=== PATIENT | female | born 1955 | race Caucasian/White ===

== ENCOUNTER 2020-12-04 06:46 | Outpatient (CLI) | payer MEDICARE, SELFPAY ==
[2020-12-04 07:30] LABS: Basophils Absolute Auto 0.1 K/mm3 (0.0-0.1); Basophils Percent Auto 0.7 % (0.2-1.2); Eosinophils Absolute Auto 0.1 K/mm3 (0-0.3); Eosinophils Percent Auto 1.6 % (0-4.4); Hematocrit 40.3 % (37.0-47.0); Immature Granulocyte Absolute 0.03 K/mm3 (0.00-0.031); Immature Granulocyte Percent A 0.3 % (0-0.5); Lymphocytes Absolute Auto 2.63 K/mm3 (0.9-3.2); Lymphocytes Percent Auto 29.7 % (18.3-44.2); Mean Corpuscular HGB Conc 32.3 g/dl (32-36); Mean Corpuscular Hemoglobin 31.2 pg (26-34); Mean Corpuscular Volume 96.6 fl (80-100); Monocytes Percent Auto 11.3 % (2.6-8.5); Neutrophils Percent Auto 56.4 % (45.5-73.1); Platelet Count Result 359 k/mm3 (150-375); Red Blood Count 4.17 M/mm3 (4.2-5.4); Red Cell Distribution Width 13.1 % (11.5-14.5); White Blood Count 8.9 K/mm3 (4.5-10.0)
[2020-12-04 07:41] LABS: Anion Gap 2 mmol/L (8-16); Blood Urea Nitrogen 15 mg/dL (7-17); Calcium 8.7 mg/dL (8.4-10.2); Carbon Dioxide 35 mmol/L (22-30); Chloride 102 mmol/L (98-107); Cholesterol 186 mg/dL (0-200); Estimated Glomerular Filt Rate > 60; Glucose 99 mg/dL (65-105); HDL Direct 49 mg/dL; Potassium 4.4 mmol/L (3.4-5.0); Sodium 139 mmol/L (137-145); Triglycerides 129 mg/dL (<150)
[2020-12-04 07:53] LABS: LDL Cholesterol Direct 107 mg/dL
[2020-12-04 09:23] LABS: Free T4 Free Thyroxine Reflex 0.94 ng/dL (0.78-2.19)
[2020-12-04 10:27] LABS: Total Triiodothyronine (T3) 1.14 NG/ML (0.97-1.69)
== END 2020-12-04 06:47 | disposition home or self-care (01) ==
PROVIDERS: PCP Nurse Practitioner Family; Visit Provider Nurse Practitioner Family
DX: E03.9 Hypothyroidism, unspecified (principal); I10 Essential (primary) hypertension
CPT/HCPCS: 36415; 80048; 80061; 84439; 84443; 84480; 85025

== ENCOUNTER 2021-01-22 15:37 | Outpatient (CLI) | payer MEDICARE, SELFPAY ==
--- NOTE | ~2021-01-22 | XR_ITS ---
EXAMINATION: XR thoracic spine 3V DATE: 01/22/2021 17:04 INDICATION: Thoracic radiculopathy. TECHNIQUE: 3 views of thoracic spine were obtained. COMPARISON: None. FINDINGS: There is 5 degrees dextrocurvature of thoracic spine. There is kyphosis of thoracic spine. Vertebral body heights are normal. There is decreased disc height at most levels, severe in mid thora cic spine. There are endplate osteophytes at all levels. Epidural electrodes are noted with tips at T 6. Surgical clips in the right upper quadrant are likely from cholecystectomy. IMPRESSION: 1. Severe thoracic spondylosis. 2. Thoracic kyphosis. Reviewed, dictated and finalized at location A.
--- NOTE | ~2021-01-22 | XR_ITS ---
XR lumbar spine min 4V 01/22/2021 17:04 Indication: Radiculopathy. Postlaminectomy syndrome. Procedure: 5 views lumbar spine Comparison: 05/01/2017 Findings: There are surgical changes of fusion at L4-5 with pedicle screws. There is prosthetic disc device without significant change to alignment. There is grade 1 spondylolisthesis at L4-5. There is disc narrowing at all lumbar levels. There are spinal stimulator leads present, superior extent not c ompletely visualized. There are cholecystectomy clips. There are also screws transfixing the lumbosac ral junction. There is disc prosthesis at L5-S1. Impression: 1: No significant interval change. Postoperative changes at L5-S1. 2: Mild-moderate lumbar spondylosis with grade 1 spondylolisthesis at L4-5. Reviewed, dictated and finalized at location D. Impression: 1: No significant interval change. Postoperative changes at L5-S1. 2: Mild-moderate lumbar spondylosis with grade 1 spondylolisthesis at L4-5.
--- NOTE | 2021-01-22 16:17 | ECG_ITS ---
Measurements Intervals [place] Rate: 79 P: 37 NH: 131 QRS: -25 QRSD: 114 T: 13 QT: 385 QTc: 442 Interpretive Statements SINUS RHYTHM LOW QRS VOLTAGE IN PRECORDIAL LEADS RIGHT BUNDLE BRANCH BLOCK BASELINE ARTIFACT- II, III, AVF ABNORMAL ECG Electronically Signed On 01-22-2021 16:28:57 CDT by Cristofer Canales D.O.
[2021-01-22 16:26] LABS: Basophils Percent Auto 0.4 % (0.2-1.2); Eosinophils Absolute Auto 0.1 K/mm3 (0-0.3); Eosinophils Percent Auto 0.9 % (0-4.4); Hemoglobin 13.9 g/dL (12.0-15.0); Immature Granulocyte Absolute 0.02 K/mm3 (0.00-0.031); Immature Granulocyte Percent A 0.2 % (0-0.5); Lymphocytes Absolute Auto 2.07 K/mm3 (0.9-3.2); Lymphocytes Percent Auto 24.5 % (18.3-44.2); Mean Corpuscular HGB Conc 32.3 g/dl (32-36); Mean Corpuscular Hemoglobin 31.4 pg (26-34); Mean Corpuscular Volume 97.1 fl (80-100); Mean Platelet Volume 8.7 fl (7.4-10.4); Monocytes Percent Auto 11.3 % (2.6-8.5); Neutrophils Absolute Auto 5.3 K/mm3 (1.3-6.7); Neutrophils Percent Auto 62.7 % (45.5-73.1); Platelet Count Result 367 k/mm3 (150-375); Red Blood Count 4.43 M/mm3 (4.2-5.4); Red Cell Distribution Width 12.4 % (11.5-14.5); White Blood Count 8.4 K/mm3 (4.5-10.0)
[2021-01-22 16:29] LABS: Add Urine Microscopic? YES; Appearance Urine Clear (Clear); Bilirubin Urine Negative (Negative); Blood Urine Negative (Negative); Color Urine Yellow (Yellow); Glucose Urine UA Negative (Negative); Ketones Urine Negative (Negative); Leukocyte Esterase Ur Negative LEU/UL (NEGATIVE); Mucus Urine Rare /lpf; Nitrate Urine Negative (Negative); Protein Urine Negative (Negative); RBC Urine 0-2 /hpf (0-2); Squamous Epithelial Cell Urine Rare /hpf (Few); Urobilinogen Urine Negative mg/dL (<2.0); WBC Urine 0-3 /hpf (0-3)
[2021-01-22 16:41] LABS: Specific Grav Ur 1.003 (1.001-1.035)
[2021-01-22 16:52] LABS: Erythrocyte Sedimentation Rate 20 mm/hr (0-20)
[2021-01-22 18:25] LABS: Alanine Aminotransferase 26 U/L (4-35); Albumin Level 4.5 g/dL (3.5-5.1); Alkaline Phosphatase 140 U/L (38-126); Anion Gap 5 mmol/L (8-16); Aspartate Amino Transferase 36 U/L (14-36); Bilirubin,Total 0.4 mg/dL (0.2-1.3); Blood Urea Nitrogen 12 mg/dL (7-17); CRP 1.8 mg/dL (<1.0); Calcium 10.1 mg/dL (8.4-10.2); Carbon Dioxide 34 mmol/L (22-30); Chloride 99 mmol/L (98-107); Estimated Glomerular Filt Rate > 60; Glucose 95 mg/dL (65-105); Potassium 4.8 mmol/L (3.4-5.0); Sodium 138 mmol/L (137-145)
== END 2021-01-22 15:38 | disposition home or self-care (01) ==
PROVIDERS: PCP Nurse Practitioner Family; Referring Provider Pain Medicine Pain Medicine; Visit Provider Physician Assistant
DX: Z01.818 Encounter for other preprocedural examination (principal); M96.1 Postlaminectomy syndrome, not elsewhere classified; Z96.89 Presence of other specified functional implants; M47.26 Other spondylosis with radiculopathy, lumbar region; M47.894 Other spondylosis, thoracic region; I45.10 Unspecified right bundle-branch block
CPT/HCPCS: 36415; 72072; 72110; 80053; 81001; 85025; 85652; 86140; 93005

== ENCOUNTER 2021-09-17 07:24 | Outpatient (CLI) | payer MEDICARE, SELFPAY ==
[2021-09-17 08:12] LABS: Basophils Percent Auto 0.5 % (0.2-1.2); Eosinophils Absolute Auto 0.1 K/mm3 (0-0.3); Eosinophils Percent Auto 1.4 % (0-4.4); Hemoglobin 12.5 g/dL (12.0-15.0); Immature Granulocyte Absolute 0.02 K/mm3 (0.00-0.031); Immature Granulocyte Percent A 0.3 % (0-0.5); Lymphocytes Absolute Auto 1.47 K/mm3 (0.9-3.2); Lymphocytes Percent Auto 19.3 % (18.3-44.2); Mean Corpuscular HGB Conc 32.1 g/dl (32-36); Mean Corpuscular Volume 93.5 fl (80-100); Mean Platelet Volume 8.9 fl (7.4-10.4); Monocytes Absolute Auto 0.8 K/mm3 (0.1-0.6); Monocytes Percent Auto 10.7 % (2.6-8.5); Neutrophils Absolute Auto 5.2 K/mm3 (1.3-6.7); Neutrophils Percent Auto 67.8 % (45.5-73.1); Platelet Count Result 322 k/mm3 (150-375); Red Blood Count 4.17 M/mm3 (4.2-5.4); Red Cell Distribution Width 13.2 % (11.5-14.5); White Blood Count 7.6 K/mm3 (4.5-10.0)
[2021-09-17 08:29] LABS: Iron 65 ug/dL (37-170)
[2021-09-17 08:39] LABS: Percent Iron Saturation 19 % (20-50)
[2021-09-17 09:15] LABS: Vitamin B12 > 1000.0 pg/mL (239-931)
== END 2021-09-17 07:25 | disposition home or self-care (01) ==
PROVIDERS: PCP Nurse Practitioner Family; Visit Provider Nurse Practitioner Family
DX: G25.81 Restless legs syndrome (principal); D64.9 Anemia, unspecified
CPT/HCPCS: 36415; 82607; 82728; 83540; 83550; 85025

== ENCOUNTER 2021-09-20 19:10 | Emergency (ER) | payer MEDICARE, SELFPAY ==
[2021-09-20] VITALS (14 sets, daily range): BP systolic 151–172; BP diastolic 73–127; PULSE 104–113; RESP 14–26; TEMP 36.4–36.9; O2SAT 95–100
--- NOTE | ~2021-09-20 | XR_ITS ---
EXAMINATION: XR knee RT 3V EXAM DATE: 09/20/2021 19:56 INDICATION: Fall Today, Pain To [place] Of Knee, Replaced 3 Yrs Ago TECHNIQUE: Three projections of the right knee. Comparison is made to prior examination from 2. FINDINGS: There is right knee arthroplasty hardware in expected position. There are no acute fractu res identified. No joint effusion. IMPRESSION: Intact right knee arthroplasty. Reviewed, dictated and finalized at location G. 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
--- NOTE | ~2021-09-20 | XR_ITS ---
EXAMINATION: XR ankle RT min 3V EXAM DATE: 09/20/2021 19:45 INDICATION: Right ankle fracture dislocation. TECHNIQUE: Frontal, oblique, lateral projections of the right ankle. There is no prior study for co mparison. FINDINGS: There is acute comminuted right fibular distal diaphyseal fracture with about 35 degrees o f lateral angulation. There is another ossification identified adjacent to the fibula at the distal t ibiofibular syndesmosis, could be an avulsion off of the tibia given the syndesmosis disruption. Talus is completely laterally displaced with respect to the tibial plafond, along with the medial mal leolus. Metatarsal bones were imaged and are unremarkable. IMPRESSION: Right fibular distal diaphyseal fracture, mortise disruption with laterally displaced nicole us and medial malleolus. Reviewed, dictated and finalized at location . CTOR OF DONOR RELATIONS IMPRESSION: Right fibular distal diaphyseal fracture, mortise disruption with l aterally displaced talus and medial malleolus.
--- NOTE | ~2021-09-20 | XR_ITS ---
EXAMINATION: XR ankle RT 2V EXAM DATE: 09/20/2021 20:43 INDICATION: Postreduction. TECHNIQUE: Frontal and lateral projections of the right ankle. There is no prior study for comparis on. FINDINGS: There has been interval reduction of previously seen laterally angulated right fibular dis nicole diaphyseal fracture. Talus is now only mildly laterally subluxed with respect to the tibial plafo nd. There is medial malleolar base avulsion fracture, and also deltoid ligament disruption. Syndesmos is disruption. Comminution to the fibular fracture. Splint has been applied. IMPRESSION: Right ankle fracture dislocation with interval reduction. Reviewed, dictated and finalized at location G. 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
--- NOTE | 2021-09-20 19:41 | ED.GENADULT ---
HPI - General Adult General Chief complaint: Fall Stated complaint: FELL DOWN 2 STEPS, RT ANKLE DEFORMITY Time Seen by Provider: 09/20/21 19:11 History of Present Illness HPI narrative: Patient is a 66-year-old female who presents ER with right ankle pain and deformity. Patient was walking down steps in her garage when she suffered inversion twist of her ankle. Sudden onset pain. Did not strike her head or lose consciousness. No numbness or tingling of the foot. Pulses intact. EMS gave patient fentanyl 100 mcg and then 50 mcg. Related Data Home Medications Medication Instructions Recorded Confirmed albuterol sulfate 90 mcg INHALATION PRN PRN 06/16/19 06/16/19 amitriptyline 10 mg PO DAILY 06/16/19 06/16/19 benzonatate 200 mg PO DAILY 06/16/19 06/16/19 bupropion HCl 150 mg PO DAILY 06/16/19 06/16/19 carbidopa-levodopa 1 tablet PO DAILY 06/16/19 06/16/19 duloxetine 60 mg PO DAILY 06/16/19 06/16/19 ergocalciferol (vitamin D2) 50,000 unit PO DAILY 06/16/19 06/16/19 fluticasone propionate 50 mcg INTRANASAL DAILY 06/16/19 06/16/19 hydrocodone-acetaminophen 1 tablet PO DAILY 06/16/19 06/16/19 levothyroxine 150 mcg PO DAILY 06/16/19 06/16/19 montelukast 10 mg PO DAILY 06/16/19 06/16/19 omeprazole 40 mg PO DAILY 06/16/19 06/16/19 potassium chloride [Klor-Con M20] 20 meq PO DAILY 06/16/19 06/16/19 Allergy Relief (loratadine) 10 mg 07/15/19 Allergies Allergy/AdvReac Type Severity Reaction Status Date / Time pregabalin Allergy Intermediate hand/feet/leg Verified 07/15/19 05:21 swelling Review of Systems Review of Systems: All systems reviewed & are unremarkable except as noted in HPI and below Constitutional: Constitutional: Denies chills, Denies fever(s) and Denies weakness Gastrointestinal: Gastrointestinal: Denies nausea and Denies vomiting Musculoskeletal: Musculoskeletal: Reports arthralgias, Reports joint swelling and Denies muscle cramps Neurologic: Denies syncope, Denies headache(s), Denies focal weakness and Denies numbness PMFSH Past Medical History Medical History (Updated 09/20/21 @ 21:47 by Dakota Cancino MD) Allergies Depression GERD with apnea Hepatitis A Hypothyroidism Peripheral neuropathy Restless leg Surgical History Surgical History H/O arthroscopic knee surgery H/O section H/O dilation and curettage History of orthopedic surgery History of right salpingo-oophorectomy History of tonsillectomy History of total bilateral knee replacement Hx of cholecystectomy S/P left rotator cuff repair Family History Family History Other Family history of Parkinson's disease Family history of malignant neoplasm of male breast Family history of osteoarthritis Social History Social History Social History: 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 She designated herself is a full code. 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 She has 2 children. Additional occupation/education comments: [employer] skin care instructor Gender identity (if verbalized by the patient): Female Spiritual care concerns: No Agree to blood products: Yes Exam Narrative: GENERAL: Well-appearing, well-nourished, and in no acute distress. HEAD: Normocephalic, atraumatic. EYES: PERRL and EOMI. ENT: Mucous membranes moist. Normal-appearing posterior oropharynx with midline uvula and nonedematous tonsils. NECK: Supple. CHEST: Clear to auscultation. No respiratory distress. HEART: Tachycardic and regular. Normal peripheral pulses. EXTREMITIES: Right ankle with deformity with the foot lateral to anatomic position. Dorsalis pedis pulses intact. Sensatio
[2021-09-20] MEDS: MORPHINE SULFATE (*CRX) 4 MG/ML INJ IV PUSH ×2 (20:17→23:16)
[2021-09-20] MEDS: PROPOFOL IV EMULSION 200 MG/20 ML VIAL 90 MG IV PUSH (20:35)
[2021-09-20] MEDS: PROPOFOL IV EMULSION 200 MG/20 ML VIAL 100 MG IV PUSH (20:35)
[2021-09-20 22:20] LABS: SARS-CoV-2 RNA PCR Negative
[2021-09-21] VITALS (11 sets, daily range): BP systolic 130–153; BP diastolic 73–85; PULSE 106–112; RESP 16–26; TEMP 37–37.2; O2SAT 94–97
[2021-09-21] MEDS: MORPHINE SULFATE (*CRX) 4 MG/ML INJ (03:10)
== END 2021-09-21 04:15 | disposition short-term general hospital (02) ==
PROVIDERS: Emergency Provider Emergency Medicine; PCP Nurse Practitioner Family
DX: S82.401A Unspecified fracture of shaft of right fibula, initial encounter for closed fracture (principal); F41.9 Anxiety disorder, unspecified; K21.9 Gastro-esophageal reflux disease without esophagitis; E03.9 Hypothyroidism, unspecified; X50.0XXA Overexertion from strenuous movement or load, initial encounter; Z20.822 Contact with and (suspected) exposure to COVID-19
CPT/HCPCS: 27810; 73562; 73600; 73610; 96374; 96376; 99285; C9803; J2270; J2704; U0003; U0005

== ENCOUNTER 2021-11-26 08:11 | Outpatient (CLI) | payer MEDICARE, SELFPAY ==
[2021-11-26 09:00] LABS: Erythrocyte Sedimentation Rate 51 mm/hr (0-20)
[2021-11-26 09:13] LABS: Rheumatoid Factor < 8.6 IU/ML (<12)
[2021-11-26 09:21] LABS: CRP 1.5 mg/dL (<1.0); Uric Acid 4.1 mg/dL (2.5-7.5)
== END 2021-11-26 08:12 | disposition home or self-care (01) ==
PROVIDERS: PCP Nurse Practitioner Family; Visit Provider Nurse Practitioner Family
DX: M25.50 Pain in unspecified joint (principal)
CPT/HCPCS: 36415; 84550; 85652; 86038; 86140; 86430

== ENCOUNTER 2022-03-26 10:23 | Outpatient (CLI) | payer MEDICARE, SELFPAY ==
[2022-03-26 11:15] LABS: Magnesium 2.2 mg/dL (1.6-2.3)
[2022-03-29 01:49] LABS: Alpha-Tocopherol 15.8 mg/L (5.7-19.9); Beta-Gamma Tocopherol <1.0 mg/L (<=4.3)
== END 2022-03-26 10:24 | disposition home or self-care (01) ==
PROVIDERS: PCP Nurse Practitioner Family; Visit Provider Nurse Practitioner
DX: G47.61 Periodic limb movement disorder (principal)
CPT/HCPCS: 36415; 83735; 84446

== ENCOUNTER 2022-04-04 08:11 | Outpatient (CLI) | payer MEDICARE, SELFPAY ==
[2022-04-04 08:36] LABS: Basophils Absolute Auto 0.1 K/mm3 (0.0-0.1); Basophils Percent Auto 0.5 % (0.2-1.2); Eosinophils Absolute Auto 0.2 K/mm3 (0-0.3); Eosinophils Percent Auto 1.7 % (0-4.4); Hematocrit 39.1 % (37.0-47.0); Hemoglobin 12.6 g/dL (12.0-15.0); Immature Granulocyte Absolute 0.04 K/mm3 (0.00-0.031); Immature Granulocyte Percent A 0.4 % (0-0.5); Lymphocytes Absolute Auto 1.54 K/mm3 (0.9-3.2); Lymphocytes Percent Auto 15.5 % (18.3-44.2); Mean Corpuscular HGB Conc 32.2 g/dl (32-36); Mean Corpuscular Hemoglobin 29.6 pg (26-34); Mean Platelet Volume 8.6 fl (7.4-10.4); Monocytes Absolute Auto 0.9 K/mm3 (0.1-0.6); Monocytes Percent Auto 9.3 % (2.6-8.5); Neutrophils Absolute Auto 7.2 K/mm3 (1.3-6.7); Neutrophils Percent Auto 72.6 % (45.5-73.1); Nucleated Red Blood Cells Absolute Auto 0.1 K/mm3 (0.0-0.012); Nucleated Red Blood Cells Perc 0.5 % (0.0-0.2); Platelet Count Result 374 k/mm3 (150-375); Red Blood Count 4.25 M/mm3 (4.2-5.4); Red Cell Distribution Width 13.5 % (11.5-14.5); White Blood Count 9.9 K/mm3 (4.5-10.0)
[2022-04-04 09:15] LABS: Iron 64 ug/dL (37-170)
[2022-04-04 09:24] LABS: Percent Iron Saturation 19 % (20-50)
== END 2022-04-04 08:12 | disposition home or self-care (01) ==
LOC: ANHLAB 08:17
PROVIDERS: PCP Nurse Practitioner Family; Visit Provider Nurse Practitioner Family
DX: D50.9 Iron deficiency anemia, unspecified (principal)
CPT/HCPCS: 36415; 82728; 83540; 83550; 85025

== ENCOUNTER 2022-08-16 11:37 | Outpatient (CLI) | payer MEDICARE, SELFPAY ==
--- NOTE | ~2022-08-16 | XR_ITS ---
EXAMINATION: XR chest 2V DATE: 08/16/2022 12:07 INDICATION: Gastroesophageal reflux. Preop. TECHNIQUE: Frontal and lateral views of the chest were obtained. COMPARISON: Chest 2 views 11/27/16 FINDINGS: There is no pneumonia, pleural effusion, or pneumothorax. Cardiomegaly is noted. Epidural e lectrodes are noted. Surgical clips in the right upper quadrant are likely from cholecystectomy. Ther e are changes of anterior and posterior fusion procedures in lumbar spine. IMPRESSION: 1. Cardiomegaly. Reviewed, dictated and finalized at location A. [employer]ARY [employer] STATE IMPRESSION: 1. Cardiomegaly.
[2022-08-16 12:08] LABS: Basophils Percent Auto 0.5 % (0.2-1.2); Eosinophils Absolute Auto 0.1 K/mm3 (0-0.3); Eosinophils Percent Auto 0.8 % (0-4.4); Hematocrit 41.9 % (37.0-47.0); Hemoglobin 13.6 g/dL (12.0-15.0); Immature Granulocyte Absolute 0.02 K/mm3 (0.00-0.031); Immature Granulocyte Percent A 0.2 % (0-0.5); Lymphocytes Absolute Auto 1.78 K/mm3 (0.9-3.2); Lymphocytes Percent Auto 21.1 % (18.3-44.2); Mean Corpuscular HGB Conc 32.5 g/dl (32-36); Mean Corpuscular Hemoglobin 29.8 pg (26-34); Mean Corpuscular Volume 91.9 fl (80-100); Mean Platelet Volume 9.3 fl (7.4-10.4); Monocytes Absolute Auto 0.9 K/mm3 (0.1-0.6); Monocytes Percent Auto 10.8 % (2.6-8.5); Neutrophils Absolute Auto 5.6 K/mm3 (1.3-6.7); Neutrophils Percent Auto 66.6 % (45.5-73.1); Platelet Count Result 357 k/mm3 (150-375); Red Blood Count 4.56 M/mm3 (4.2-5.4); Red Cell Distribution Width 12.7 % (11.5-14.5); White Blood Count 8.4 K/mm3 (4.5-10.0)
[2022-08-16 12:21] LABS: Anion Gap 3 mmol/L (8-16); Blood Urea Nitrogen 16 mg/dL (7-17); Calcium 9.1 mg/dL (8.4-10.2); Carbon Dioxide 35 mmol/L (22-30); Chloride 99 mmol/L (98-107); Estimated Glomerular Filt Rate > 60; Glucose 107 mg/dL (65-110); Potassium 4.1 mmol/L (3.4-5.0); Sodium 137 mmol/L (137-145)
[2022-08-16 12:53] LABS: Thyroid Stimulating Hormone Reflex < 0.015 uIU/mL (0.465-4.68)
[2022-08-16 21:40] LABS: Free T4 Free Thyroxine Reflex 2.03 ng/dL (0.78-2.19)
[2022-08-16 22:26] LABS: Total Triiodothyronine (T3) 1.38 NG/ML (0.97-1.69)
== END 2022-08-16 11:38 | disposition home or self-care (01) ==
LOC: ANHLAB 11:41
PROVIDERS: PCP Nurse Practitioner Family; Visit Provider Nurse Practitioner Family
DX: Z01.818 Encounter for other preprocedural examination (principal); E03.9 Hypothyroidism, unspecified; I51.7 Cardiomegaly
CPT/HCPCS: 36415; 71046; 80048; 84439; 84443; 84480; 85025

== ENCOUNTER 2022-11-16 08:51 | Inpatient (IN) | payer MEDICARE, SELFPAY ==
[2022-11-16] VITALS (25 sets, daily range): BP systolic 115–149; BP diastolic 61–85; PULSE 63–99; RESP 13–28; TEMP 36.8–36.9; O2SAT 93–100; BMI 31.9
--- NOTE | ~2022-11-16 | CT_ITS ---
EXAMINATION: CT brain wo con INDICATION: Left-sided facial numbness COMPARISON: 07/15/2019 TECHNIQUE: Standard unenhanced head CT. The dose-length product (DLP) was 605.33 mGy-cm. The mA was a djusted according to patient size. Iterative reconstruction technique was employed. FINDINGS: There is no acute intraparenchymal hemorrhage. No evidence of mass lesion. No evidence of a cute infarction. There is mild periventricular and subcortical hypodensity probably related to small vessel ischemic disease. There is mild prominence of the sulci and ventricles related to cerebral atr ophy. Intracranial calcified cerebral atherosclerosis is noted. There are no extra-axial collections. There is no mass effect or midline shift. The orbits and soft tissues are unremarkable. The visualiz ed sinuses and mastoid air cells are well aerated. IMPRESSION: 1. No acute intracranial abnormality. 2. Age related findings. Reviewed, dictated and finalized at location A.
--- NOTE | 2022-11-16 09:21 | ED.NEUROSD ---
HPI - Neuro Symptoms/Deficit General Chief Complaint: Neuro Symptoms/Deficit <Evie Mann PA-C - Last Filed: 11/16/22 13:57> Stated Complaint: Muscles spasm to left face and throat <Evie Mann PA-C - Last Filed: 11/16/22 13:57> Time Seen by Provider: 11/16/22 08:55 <Evie Mann PA-C - Last Filed: 11/16/22 13:57> History of Present Illness HPI Narrative: Patient is a 67-year-old female here for evaluation of twitching and involuntary movements to the left side of her face for the past 3 days. Patient states that at random she will experience spasming of the left side of the face and occasionally will say words that do not make sense with the spasming. She has had this before in 2019, underwent neurology consultation and it was thought to be related to tardive Dyskinesia given improvement with Benadryl and Cogentin. She was on topiramate at that time which was stopped. Patient was doing well until about 3 days ago when her symptoms returned. She has had no new medicines; she does take sinemet and pramipexole for restless leg. She was seen at [facility] emergency department when her symptoms returned, it improved after she was given Ativan and she was discharged home. No neuroimaging was performed. Patient states her symptoms today are very similar to the episode in 2019. No weakness, visual changes, slurred speech. <Evie Mann PA-C - Last Filed: 11/16/22 13:57> Related Data Home Medications: Home Medications Medication Instructions Recorded Confirmed albuterol sulfate 90 mcg/actuation 90 mcg inhalation PRN PRN 06/16/19 06/16/19 aerosol inhaler Bronchospasm amitriptyline 10 mg tablet 10 mg PO DAILY 06/16/19 06/16/19 benzonatate 200 mg capsule 200 mg PO DAILY 06/16/19 06/16/19 bupropion HCl 150 mg 24 hr tablet, 150 mg PO DAILY 06/16/19 06/16/19 extended release carbidopa 25 mg-levodopa 100 mg 1 tablet PO DAILY 06/16/19 06/16/19 tablet duloxetine 60 mg capsule,delayed 60 mg PO DAILY 06/16/19 06/16/19 release ergocalciferol (vitamin D2) 1,250 50,000 unit PO DAILY 06/16/19 06/16/19 mcg (50,000 unit) capsule fluticasone propionate 50 50 mcg intranasal DAILY 06/16/19 06/16/19 mcg/actuation nasal spray,suspension hydrocodone 7.5 mg-acetaminophen 1 tablet PO DAILY 06/16/19 06/16/19 325 mg tablet levothyroxine 150 mcg tablet 150 mcg PO DAILY 06/16/19 06/16/19 montelukast 10 mg tablet 10 mg PO DAILY 06/16/19 06/16/19 omeprazole 40 mg capsule,delayed 40 mg PO DAILY 06/16/19 06/16/19 release potassium chloride 20 mEq 20 meq PO DAILY 06/16/19 06/16/19 tablet,extended release(part/cryst) (Klor-Con M) Allergy Relief (loratadine) 10 mg 07/15/19 <Evie Mann PA-C - Last Filed: 11/16/22 13:57> Allergies/Adverse Reactions: Allergies Allergy/AdvReac Type Severity Reaction Status Date / Time pregabalin Allergy Intermediate hand/feet/leg Verified 11/16/22 09:14 swelling <Evie Mann PA-C - Last Filed: 11/16/22 13:57> Review of Systems Review of Systems: Gen.: Denies fevers or chills Eyes: Denies eye pain or visual change ENT: Denies congestion Respiratory: Denies shortness of breath or cough CV: Denies chest pain or palpitations GI: Denies abdominal pain nausea, emesis or diarrhea denies burning, urgency, frequency or hematuria Musculoskeletal: Denies back pain or muscle pain Neuro: Reports twitching Skin: Denies rash Except as documented, all other systems reviewed and negative <Evie Mann PA-C - Last Filed: 11/16/22 13:57> [facility] Past Medical History Medical History: Medical History (Updated 11/16/22 @ 12:53 by Evie Mann PA-C) Allergies Depression GERD with apnea Hepatitis A Hypothyroidism Peripheral neuropathy Restless leg <Evie Mann PA-C - Last Filed: 11/16/22 13:57> Surgical History Surgical History: Surgical History (Updated
[2022-11-16] MEDS: diphenhydrAMINE HCl CAP 25 MG CAPSULE PO (09:27)
--- NOTE | 2022-11-16 10:12 | PC.NURSE ---
Patient off unit to CT>
[2022-11-16 10:24] LABS: Alanine Aminotransferase 9 U/L (6-35); Albumin Level 4.2 g/dL (3.5-5.1); Alkaline Phosphatase 159 U/L (38-126); Anion Gap 4 mmol/L (8-16); Aspartate Amino Transferase 29 U/L (14-36); Bilirubin,Total 0.4 mg/dL (0.2-1.3); Blood Urea Nitrogen 13 mg/dL (7-17); Calcium 9.1 mg/dL (8.4-10.2); Carbon Dioxide 32 mmol/L (22-30); Chloride 102 mmol/L (98-107); Estimated Glomerular Filt Rate > 60; Glucose 102 mg/dL (65-110); Phosphorus 4.2 mg/dL (2.5-4.5); Potassium 4.1 mmol/L (3.4-5.0); Sodium 138 mmol/L (137-145)
[2022-11-16 10:54] LABS: Basophils Absolute Auto 0.1 K/mm3 (0.0-0.1); Basophils Percent Auto 0.6 % (0.2-1.2); Eosinophils Absolute Auto 0.1 K/mm3 (0-0.3); Eosinophils Percent Auto 1.6 % (0-4.4); Hematocrit 39.3 % (37.0-47.0); Hemoglobin 12.9 g/dL (12.0-15.0); Immature Granulocyte Absolute 0.04 K/mm3 (0.00-0.031); Immature Granulocyte Percent A 0.5 % (0-0.5); Lymphocytes Absolute Auto 1.56 K/mm3 (0.9-3.2); Lymphocytes Percent Auto 19.3 % (18.3-44.2); Mean Corpuscular HGB Conc 32.8 g/dl (32-36); Mean Corpuscular Hemoglobin 31.2 pg (26-34); Mean Corpuscular Volume 95.2 fl (80-100); Mean Platelet Volume 9.3 fl (7.4-10.4); Monocytes Absolute Auto 0.8 K/mm3 (0.1-0.6); Monocytes Percent Auto 9.7 % (2.6-8.5); Neutrophils Absolute Auto 5.5 K/mm3 (1.3-6.7); Neutrophils Percent Auto 68.3 % (45.5-73.1); Platelet Count Result 345 k/mm3 (150-375); Red Blood Count 4.13 M/mm3 (4.2-5.4); Red Cell Distribution Width 12.9 % (11.5-14.5); White Blood Count 8.1 K/mm3 (4.5-10.0)
[2022-11-16] MEDS: LORazepam (*CRX) 1 MG TABLET PO (11:34)
[2022-11-16] MEDS: BENZTROPINE MESYLATE 1 MG TABLET PO (12:32)
--- NOTE | 2022-11-16 13:37 | PM.IMHP ---
H&P: HPI History of Present Illness Date/Time: 11/16/22 13:37 Chief Complaint: Neuro symptoms Narrative: This is a 67-year-old female patient who came to be evaluated for twitching involuntary movement of the left side of her face for the last 3 days. The patient stated that she has experiences in the past and will occasionally say some words that do not make sense with the spasming. She was treated for this back in 2019 after seeing in neurological consultation. It was thought it was related to tardive dyskinesia. The symptoms resolved with Benadryl and Cogentin. She had been on Topamax at some point but that is now stopped. She has not been taking any new medications. The patient is still on Sinemet and pramipexole for restless leg syndrome. The patient was recently seen at [facility] in [place] and was discharged to home. Patient has no focal weakness or slurred words or any visual changes. Head CT was read as no acute intracranial abnormality. Age-related findings. Neurology has been consulted. The patient was given Benadryl Ativan and Cogentin. When I assessed her the patient was just very restless. No further facial spasm were noted. The patient became very restless after she was given the Ativan. The patient is being admitted to observation status on the date of service of 11/16/2022. Review of Systems Review of Systems: All systems reviewed & are unremarkable except as noted in HPI and below Constitutional: Constitutional: Reports as per HPI and Reports no additional constitutional complaints Eyes: Eyes: Reports as per HPI and Reports no additional eye complaints ENT: Reports system reviewed and no additional complaints, except as documented and Reports Normal hearing present Cardiovascular: Cardiovascular: Reports no additional cardiovascular complaints Respiratory: Respiratory: Reports no additional respiratory complaints and Reports no additional respiratory complaints Gastrointestinal: Gastrointestinal: Reports as per HPI and Reports no additional gastrointestinal complaints Musculoskeletal: Musculoskeletal: Reports no additional musculoskeletal complaints Integumentary/Breasts: Skin/Breast: Reports system reviewed and no additional complaints, except as docu and Reports as per HPI Neurologic: Reports system reviewed and no additional complaints, except as documented, Reports as per HPI and Reports Normal hearing present Psychiatric: Psychiatric: Reports no additional psychiatric complaints and Reports as per HPI Endocrine: Endocrine: Reports no additional endocrine complaints Hematologic/Lymphatic: Hematologic/Lymphatic: Reports no additional hematologic/lymphatic complaints Allergic/Immunologic: Allergic/Immunologic: Reports no additional allergic/immunologic complaints [facility] Past Medical History Medical History Allergies Depression GERD with apnea Hepatitis A Hypothyroidism Peripheral neuropathy Restless leg Surgical History Surgical History (Updated 11/16/22 @ 16:01 by Natalie Shepherd NP) H/O arthroscopic knee surgery H/O section H/O colonoscopy with polypectomy H/O dilation and curettage H/O lumpectomy History of orthopedic surgery History of right salpingo-oophorectomy History of tonsillectomy History of total bilateral knee replacement Hx of cholecystectomy S/P left rotator cuff repair Status post ORIF of fracture of ankle times 2 Family History Family History Other Family history of malignant neoplasm of male breast Family history of osteoarthritis Social History Social History Social History: 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 She designated herself is a full code. Smoking status: Never smoker Alcohol intake: never Substance use: never Substance use type:
--- NOTE | 2022-11-16 13:39 | ADMGEN ---
This patient, Heather Shukla, was admitted to 2 Medical Room 240-. Patient/family oriented to hospital policies and general routines including ID bracelet, bed and alarms, visiting hours, pain management, procedures, bathroom and other care routines, personal items, smoking policy, room service/diet, and visiting hours. Information on how to activate the Rapid Response Team has been discussed. Patient/Family are encouraged to report perceived risks to care and to ask questions if they do not understand what they are told or what they should do.
[2022-11-16] MEDS: diphenhydrAMINE HCl INJ 50 MG/ML VIAL 25 MG IV PUSH ×2 (16:23→22:16)
[2022-11-16] MEDS: CARBIDOPA/LEVODOPA 25/100 MG TABLET 1 TABLET PO (18:21)
[2022-11-16] MEDS: CYCLOBENZAPRINE HCL 5 MG TABLET PO (18:21)
[2022-11-16] MEDS: PANTOPRAZOLE 40 MG TABLET PO (20:45)
[2022-11-16] MEDS: rOPINIRole HCL 0.5 MG TABLET PO (20:45)
[2022-11-16] MEDS: HYDROcodone/acetaminophen (*CRX) 7.5-325 MG TABLET 1 TAB PO (22:15)
[2022-11-17 05:22] VITALS: BP 112/88; PULSE 62; RESP 18; TEMP 36.4; O2SAT 100
[2022-11-17 05:48] LABS: Basophils Absolute Auto 0.1 K/mm3 (0.0-0.1); Basophils Percent Auto 0.6 % (0.2-1.2); Eosinophils Absolute Auto 0.2 K/mm3 (0-0.3); Hematocrit 36.3 % (37.0-47.0); Hemoglobin 12.1 g/dL (12.0-15.0); Immature Granulocyte Absolute 0.03 K/mm3 (0.00-0.031); Immature Granulocyte Percent A 0.3 % (0-0.5); Lymphocytes Absolute Auto 2.29 K/mm3 (0.9-3.2); Lymphocytes Percent Auto 26.5 % (18.3-44.2); Mean Corpuscular HGB Conc 33.3 g/dl (32-36); Mean Corpuscular Hemoglobin 31.5 pg (26-34); Mean Corpuscular Volume 94.5 fl (80-100); Mean Platelet Volume 9.2 fl (7.4-10.4); Monocytes Absolute Auto 1.1 K/mm3 (0.1-0.6); Monocytes Percent Auto 12.7 % (2.6-8.5); Neutrophils Percent Auto 57.9 % (45.5-73.1); Platelet Count Result 297 k/mm3 (150-375); Red Blood Count 3.84 M/mm3 (4.2-5.4); Red Cell Distribution Width 12.8 % (11.5-14.5); White Blood Count 8.6 K/mm3 (4.5-10.0)
[2022-11-17 06:02] LABS: Alanine Aminotransferase 14 U/L (6-35); Albumin Level 3.8 g/dL (3.5-5.1); Alkaline Phosphatase 150 U/L (38-126); Anion Gap 3 mmol/L (8-16); Aspartate Amino Transferase 25 U/L (14-36); Bilirubin,Total 0.6 mg/dL (0.2-1.3); Blood Urea Nitrogen 17 mg/dL (7-17); Calcium 8.9 mg/dL (8.4-10.2); Carbon Dioxide 34 mmol/L (22-30); Chloride 100 mmol/L (98-107); Estimated Glomerular Filt Rate > 60; Glucose 95 mg/dL (65-110); Potassium 3.9 mmol/L (3.4-5.0); Sodium 137 mmol/L (137-145)
[2022-11-17] MEDS: LEVOTHYROXINE SODIUM 150 MCG TABLET PO (06:27)
[2022-11-17] MEDS: CYCLOBENZAPRINE HCL 5 MG TABLET PO ×2 (06:27→14:41)
[2022-11-17] MEDS: CARBIDOPA/LEVODOPA 25/100 MG TABLET 1 TABLET PO ×3 (06:42→22:11)
[2022-11-17 07:00] LABS: Thyroid Stimulating Hormone Reflex 0.167 uIU/mL (0.465-4.68)
[2022-11-17] MEDS: PANTOPRAZOLE 40 MG TABLET PO ×2 (08:09→20:15)
[2022-11-17] MEDS: FERROUS SULFATE 324 MG TABLET PO (08:09)
[2022-11-17] MEDS: buPROPion HCL XL (24 HR) 150 MG TABCR PO (08:09)
[2022-11-17] MEDS: POTASSIUM CHLORIDE 20 MEQ TABLET.ER PO (08:09)
[2022-11-17] MEDS: MONTELUKAST SODIUM 10 MG TABLET PO (08:09)
[2022-11-17] MEDS: DULoxetine HCL 60 MG CAPSULE.DR PO (08:09)
[2022-11-17 11:15] LABS: Free T4 Free Thyroxine Reflex 1.34 ng/dL (0.78-2.19)
--- NOTE | 2022-11-17 11:38 | WPDNEURCNPN ---
Assessment and Plan Assessment and plan (1) Facial spasm: Code(s): G51.39 - Clonic hemifacial spasm, unspecified Status: Acute (2) Restless leg: Code(s): G25.81 - Restless legs syndrome Status: Chronic Plan Heather Shukla is a 67 year old female with a history of restless leg syndrome and hypothyroidism presenting due to involuntary facial twitching associated with speech change. Based on description of movements, seizures seem less likely. Suspect hemifacial spasms, which would ultimately need to be treated with Botox. Could also be medication related dyskinesias as patient is on both Sinemet and dopamine agonist for RLS presently. - MRI brain/MRA brain to evaluate for lesion/neurovascular compression - Routine EEG - If work-up is negative, can consider starting Tegretol for hemifacial spasms in the interim - Will need outpatient evaluation in Movement disorder clinic for potential Botox Consult date: 11/17/22 Reason for consult: Facial twitching HPI: Heather Shukla is a 67 year old female with a history of restless leg syndrome and hypothyroidism presenting due to involuntary facial twitching. Patient presented to [place] ED yesterday due to a three day history of left sided facial twitching. She has had similar episodes in the past associated with speech difficulty. These episodes started about 4 year sago. She was seen at [facility] at that time and diagnosed with Tardive dyskinesia. She was treated with Benadryl and Cogentin. There is no history of antipsychotic use in patient's medication list. She currently takes Sinemet 25-100mg TID and Ropinirole 1mg qhs for restless leg syndrome. In the ED, patient was given Ativan, Benadryl and Cogentin. By the time she was admitted, her facial twitching had stopped. She had a CT head which was unremarkable. Due to concerns for dyskinesias, her Ropinirole was cut in half to 0.5mg qhs. Patient has not had any more twitching since admission. She denies any alteration in mental status during the episodes and is completely awake and alert. She denies any twitching of her extremities with the facial twitching, but does feel restless in her body throughout. Her PCP is managing her restless leg symptoms. Review of Systems Constitutional: Constitutional: Reports no additional constitutional complaints Eyes: Eyes: Reports no additional eye complaints ENT: Reports system reviewed and no additional complaints, except as documented Cardiovascular: Cardiovascular: Reports no additional cardiovascular complaints Respiratory: Respiratory: Reports no additional respiratory complaints Gastrointestinal: Gastrointestinal: Reports no additional gastrointestinal complaints Genitourinary: Genitourinary: Reports no additional female genitourinary complaints Musculoskeletal: Musculoskeletal: Reports no additional musculoskeletal complaints Integumentary/Breasts: Skin/Breast: Reports system reviewed and no additional complaints, except as docu Neurologic: Reports as per HPI Psychiatric: Psychiatric: Reports anxiety PMFSH Past Medical History Medical History Allergies Depression GERD with apnea Hepatitis A Hypothyroidism Peripheral neuropathy Restless leg Surgical History Surgical History H/O arthroscopic knee surgery H/O section H/O colonoscopy with polypectomy H/O dilation and curettage H/O lumpectomy History of orthopedic surgery History of right salpingo-oophorectomy History of tonsillectomy History of total bilateral knee replacement Hx of cholecystectomy S/P left rotator cuff repair Status post ORIF of fracture of ankle times 2 Family History Family History Mother Parkinson disease Family history of osteoarthritis Breast cancer Other Muscular dystrophy Grandparent Colon cancer Fathe
--- NOTE | 2022-11-17 12:14 | PM.IMPN ---
Progress Note: A&P Assessment and Plan (1) Acute chorea: Code(s): G25.5 - Other chorea Status: Acute Assessment and Plan: Twitching involuntary movement of the left side of her face for the last 3 days Neurology has been consulted The patient was started on Cogentin and Benadryl. Ropinirole can cause some dyskinesias; ropinirole dose cut her in half. MRI and MRA of brain and brainstem ordered EEG has been ordered Patient has no neurological deficits at this time. She has no further facial twitching at this time and her speech is clear. Duloxetine can cause seizures as well. (2) Hypothyroidism: Code(s): E03.9 - Hypothyroidism, unspecified Status: Chronic Assessment and Plan: Check thyroid level, TSH 0.167, normal T4 Continue levothyroxine (3) Peripheral neuropathy: Code(s): G62.9 - Polyneuropathy, unspecified Status: Chronic Assessment and Plan: Continue with duloxetine Duloxetine can cause some seizures EEG has been ordered. (4) Depression: Code(s): F32.9 - Major depressive disorder, single episode, unspecified Status: Chronic Assessment and Plan: Continue with duloxetine (5) Restless leg: Code(s): G25.81 - Restless legs syndrome Status: Chronic Assessment and Plan: Her ropinirole has been decreased by half as it can cause some dyskinesias. Subjective Date/time seen: 11/17/22 12:14 Interval history: Patient is doing well and her muscle spasms have resolved. Patient denies headache, dizziness, muscle cramping, chest pain and shortness of breath. Review of Systems Review of Systems: All systems reviewed & are unremarkable except as noted in HPI and below Exam Narrative: GENERAL: Comfortable, no acute distress HENMT: moist mucous membranes EYES: EOM intact b/l RESPIRATORY: clear to auscultation CARDIO: RRR GI: soft, nontender, bowel sounds present SKIN: no rashes EXTREMITIES: no edema, redness or tenderness Objective Data Vital Signs Vital Signs: Vital Signs - 24 hr 11/16/22 12:15 11/16/22 12:30 11/16/22 12:45 Temperature Pulse Rate 74 83 81 Respiratory Rate 14 24 H 15 Blood Pressure Pulse Oximetry 96 97 94 Oxygen Delivery 11/16/22 14:23 11/16/22 13:40 11/16/22 20:00 Temperature 98.2 F Pulse Rate 89 Respiratory Rate 20 Blood Pressure 121/85 Pulse Oximetry 97 97 Oxygen Delivery Room Air Room Air 11/16/22 20:22 11/17/22 05:22 11/17/22 08:10 Temperature 98.3 F 97.6 F Pulse Rate 99 62 Respiratory Rate 20 18 Blood Pressure 129/76 112/88 Pulse Oximetry 95 100 Oxygen Delivery Room Air Intake/Output Intake/Output: Intake & Output 11/14/22 11/15/22 11/16/22 11/17/22 23:59 23:59 23:59 23:59 Intake Total 870 490 Output Total 400 500 Balance 470 -10 Meds/Results Medications: Active Medications Generic Name Dose Route Start Last Admin Trade Name Freq PRN Reason Stop Dose Admin Acetaminophen 650 mg 11/16/22 12:49 Acetaminophen 325 Mg Tablet PO Q4H PRN Mild Pain (1-3) or Fever Hydrocodone Bitart/Acetaminophen 1 tab 11/16/22 15:59 11/16/22 22:15 Hydrocodone/Acetaminophen (*Crx) 7.5-325 Mg Tablet PO 1 tab Q6H PRN Administration Pain 4-6 Albuterol 2 puff 11/16/22 15:59 Albuterol Sulfate (*Sp) Aerosol 1 Puff INHALATION Q4H PRN Bronchospasm Bupropion HCl 150 mg 11/17/22 09:00 11/17/22 08:09 Bupropion Hcl Xl (24 Hr) 150 Mg Tabcr PO 150 mg DAILY GERARDO Administration Carbidopa/Levodopa 1 tablet 11/17/22 07:00 11/17/22 06:42 Carbidopa/Levodopa 25/100 Mg Tablet PO 1 tablet 0700,1500,2300 GERARDO Administration Cyclobenzaprine HCl 5 mg 11/16/22 17:32 11/17/22 06:27 Cyclobenzaprine Hcl 5 Mg Tablet PO 5 mg Q8H PRN Administration Muscle Spasm Diphenhydramine HCl 25 mg 11/16/22 15:28 11/16/22 22:16 Diphenhydramine
[2022-11-17 14:54] VITALS: BP 119/59; PULSE 79; RESP 16; TEMP 36.5; O2SAT 98
[2022-11-17 14:55] VITALS: BP 119/59; PULSE 79; RESP 16; TEMP 36.5; O2SAT 98
[2022-11-17 20:00] VITALS: PULSE 79; RESP 16; O2SAT 98
[2022-11-17] MEDS: rOPINIRole HCL 0.5 MG TABLET PO (20:15)
[2022-11-17 20:29] VITALS: BP 121/64; PULSE 81; RESP 20; TEMP 36.6; O2SAT 100
[2022-11-17 22:27] LABS: Total Triiodothyronine (T3) 1.15 NG/ML (0.97-1.69)
[2022-11-18 05:30] VITALS: BP 124/59; PULSE 64; RESP 20; TEMP 36.5; O2SAT 100
[2022-11-18 05:46] LABS: Basophils Percent Auto 0.5 % (0.2-1.2); Eosinophils Absolute Auto 0.2 K/mm3 (0-0.3); Eosinophils Percent Auto 1.9 % (0-4.4); Hematocrit 35.3 % (37.0-47.0); Hemoglobin 11.5 g/dL (12.0-15.0); Immature Granulocyte Absolute 0.03 K/mm3 (0.00-0.031); Immature Granulocyte Percent A 0.3 % (0-0.5); Lymphocytes Absolute Auto 1.88 K/mm3 (0.9-3.2); Lymphocytes Percent Auto 21.8 % (18.3-44.2); Mean Corpuscular HGB Conc 32.6 g/dl (32-36); Mean Corpuscular Volume 95.1 fl (80-100); Mean Platelet Volume 9.4 fl (7.4-10.4); Neutrophils Absolute Auto 5.6 K/mm3 (1.3-6.7); Neutrophils Percent Auto 64.5 % (45.5-73.1); Platelet Count Result 289 k/mm3 (150-375); Red Blood Count 3.71 M/mm3 (4.2-5.4); Red Cell Distribution Width 12.7 % (11.5-14.5); White Blood Count 8.6 K/mm3 (4.5-10.0)
[2022-11-18 05:55] LABS: Alanine Aminotransferase 7 U/L (6-35); Albumin Level 3.7 g/dL (3.5-5.1); Alkaline Phosphatase 138 U/L (38-126); Anion Gap 3 mmol/L (8-16); Aspartate Amino Transferase 22 U/L (14-36); Bilirubin,Total 0.4 mg/dL (0.2-1.3); Blood Urea Nitrogen 19 mg/dL (7-17); Calcium 8.7 mg/dL (8.4-10.2); Carbon Dioxide 33 mmol/L (22-30); Chloride 101 mmol/L (98-107); Estimated Glomerular Filt Rate > 60; Glucose 109 mg/dL (65-110); Potassium 3.7 mmol/L (3.4-5.0); Sodium 137 mmol/L (137-145)
[2022-11-18] MEDS: CARBIDOPA/LEVODOPA 25/100 MG TABLET 1 TABLET PO ×2 (06:27→14:36)
[2022-11-18] MEDS: LEVOTHYROXINE SODIUM 150 MCG TABLET PO (06:27)
[2022-11-18] MEDS: ERGOCALCIFEROL 50,000 UNITS CAPSULE 50000 UNITS PO (08:11)
[2022-11-18] MEDS: POTASSIUM CHLORIDE 20 MEQ TABLET.ER PO (08:11)
[2022-11-18] MEDS: DULoxetine HCL 60 MG CAPSULE.DR PO (08:11)
[2022-11-18] MEDS: FERROUS SULFATE 324 MG TABLET PO (08:12)
[2022-11-18] MEDS: PANTOPRAZOLE 40 MG TABLET PO (08:12)
[2022-11-18] MEDS: buPROPion HCL XL (24 HR) 150 MG TABCR PO (08:12)
[2022-11-18] MEDS: MONTELUKAST SODIUM 10 MG TABLET PO (08:12)
--- NOTE | 2022-11-18 11:18 | WPDNEUROPN ---
Subjective Date/time seen: 11/18/22 11:18 Interval history: 67 years old right-handed female has been admitted to [facility] and was initially seen by Dr. Foreman for the complaints of facial spasms in addition to restless leg syndrome patient does have underlying hypothyroidism patient initially presented to the ER for the involuntary facial twitching patient has been taking the Sinemet and dopamine agonist for restless leg syndrome MRI of the brain and MRA was ordered to rule out the possible neurovascular compression in addition to obtaining the routine EEG her routine lab is normal and head CT scan is negative at present she is taking multiple medications which include bupropion 150 mg daily, carbidopa levodopa 25/100 3 times a day, duloxetine 60 mg daily, and ropinirole 1 mg daily MRI of the brain has been ordered in addition routine EEG and Dr. Foreman was thinking to briefer her to the [facility]. On today's visit she feels completely better will wait for the MRI report and then decide accordingly Objective Data Vital Signs Vital Signs: Vital Signs - 24 hr 11/17/22 14:54 11/17/22 14:55 11/17/22 20:00 Temperature 36.5 C 36.5 C Pulse Rate 79 79 79 Respiratory Rate 16 16 16 Blood Pressure 119/59 L 119/59 L Pulse Oximetry 98 98 98 Oxygen Delivery Room Air 11/17/22 20:29 11/18/22 05:30 Temperature 36.6 C 36.5 C Pulse Rate 81 64 Respiratory Rate 20 20 Blood Pressure 121/64 124/59 L Pulse Oximetry 100 100 Oxygen Delivery Intake/Output Intake/Output: Intake & Output 11/15/22 11/16/22 11/17/22 11/18/22 23:59 23:59 23:59 23:59 Intake Total 870 1670 365 Output Total 020 942 1951 Balance 470 983 -635 Meds/Results Medications: Active Medications Generic Name Dose Route Start Last Admin Trade Name Freq PRN Reason Stop Dose Admin Acetaminophen 650 mg 11/16/22 12:49 Acetaminophen 325 Mg Tablet PO Q4H PRN Mild Pain (1-3) or Fever Hydrocodone Bitart/Acetaminophen 1 tab 11/16/22 15:59 11/16/22 22:15 Hydrocodone/Acetaminophen (*Crx) 7.5-325 Mg Tablet PO 1 tab Q6H PRN Administration Pain 4-6 Albuterol 2 puff 11/16/22 15:59 Albuterol Sulfate (*Sp) Aerosol 1 Puff INHALATION Q4H PRN Bronchospasm Bupropion HCl 150 mg 11/17/22 09:00 11/18/22 08:12 Bupropion Hcl Xl (24 Hr) 150 Mg Tabcr PO 150 mg DAILY GERARDO Administration Carbidopa/Levodopa 1 tablet 11/17/22 07:00 11/18/22 06:27 Carbidopa/Levodopa 25/100 Mg Tablet PO 1 tablet 0700,1500,2300 GERARDO Administration Cyclobenzaprine HCl 5 mg 11/16/22 17:32 11/17/22 14:41 Cyclobenzaprine Hcl 5 Mg Tablet PO 5 mg Q8H PRN Administration Muscle Spasm Diphenhydramine HCl 25 mg 11/16/22 15:28 11/16/22 22:16 Diphenhydramine Hcl Inj 50 Mg/Ml Vial IV PUSH 25 mg Q4H PRN Administration Itching Duloxetine HCl 60 mg 11/17/22 09:00 11/18/22 08:11 Duloxetine Hcl 60 Mg Capsule.Dr PO 60 mg DAILY GERARDO Administration Ergocalciferol 50,000 units 11/18/22 09:00 11/18/22 08:11 Ergocalciferol 50,000 Units Capsule PO 50,000 units WEEKLY GERARDO Administration Ferrous Sulfate 324 mg 11/17/22 08:00 11/18/22 08:12 Ferrous Sulfate 324 Mg Tablet PO 324 mg DAILY@0800 GERARDO Administration Levothyroxine Sodium 150 mcg 11/17/22 06:30 11/18/22 06:27 Levothyroxine Sodium 150 Mcg Tablet PO 150 mcg DAILY@0630 GERARDO Administration Lorazepam 0.5 mg 11/16/22 15:59 Lorazepam Inj (*Crx) 2 Mg/Ml Vial IV PUSH Q6H PRN Anxiety Montelukast Sodium 10 mg 11/17/22 09:00 11/18/22 08:12 Montelukast Sodium 10 Mg Tablet PO 10 mg DAILY GERARDO Administration Pantoprazole Sodium 40 mg 11/16/22 21:00 11/18/22 08:12 Pantoprazole 40 Mg Tablet PO 40 mg Q12HR GERARDO Administration Potassium Chloride 20 meq 11/17/22 09:00 11/18/22 08:11 Potassium Chloride 20 Meq Tablet.Er PO 20 meq DAILY GERARDO Administration Ropinirole HCl 0.
[2022-11-18 13:43] VITALS: BP 133/72; PULSE 84; RESP 16; TEMP 36.3; O2SAT 100
--- NOTE | 2022-11-18 15:13 | PM.DS ---
DS: Admitting Diagnosis Discharge Date 11/18/22 Admitting Diagnosis chorea DS: Discharge Diagnosis Discharge Diagnosis (1) Acute chorea: Code(s): G25.5 - Other chorea Status: Acute Assessment and Plan: Twitching involuntary movement of the left side of her face for the last 3 days Neurology has been consulted The patient was started on Cogentin and Benadryl. Ropinirole can cause some dyskinesias; ropinirole dose cut her in half. MRI and MRA of brain Cannot be performed due to deep pain stimulator EEG And does not reveal acute concern for seizure activity. Patient has no neurological deficits at this time. She has no further facial twitching at this time and her speech is clear. Duloxetine can cause seizures as well. (2) Hypothyroidism: Code(s): E03.9 - Hypothyroidism, unspecified Status: Chronic Assessment and Plan: Check thyroid level, TSH 0.167, normal T4 Continue levothyroxine (3) Peripheral neuropathy: Code(s): G62.9 - Polyneuropathy, unspecified Status: Chronic Assessment and Plan: Continue with duloxetine Duloxetine can cause some seizures EEG has been ordered. (4) Depression: Code(s): F32.9 - Major depressive disorder, single episode, unspecified Status: Chronic Assessment and Plan: Continue with duloxetine (5) Restless leg: Code(s): G25.81 - Restless legs syndrome Status: Chronic Assessment and Plan: Her ropinirole has been decreased by half as it can cause some dyskinesias. DS: Summary Hospital Course Hospital Course: This is a 67-year-old patient with a past medical history of restless leg syndrome, peripheral neuropathy, hypothyroidism and GERD that presented to the ED on 11/16/2022 due to left-sided muscle spasms on her face for the past 3 days. Patient has had similar symptoms in 2019 and had a neurological consultation at that time and was thought to have tardive dyskinesia. Patient denies starting any new medications. She is chronically on Sinemet and pramipexole for restless leg syndrome.? she has no focal weakness or slurred words or any visual changes. Head CT with no acute intracranial process. neurology consulted and patient was given Benadryl Ativan and Cogentin. Patient's ropinirole decreased from 1 mg p.o. daily to 0.5 mg p.o. daily. Neurology suspects anya facial spasms that could be treated with Botox. Recommended that MRI and MRA brain be performed to evaluate for lesions/neurovascular compression. Due to patient having pain stimulator she cannot have MRI done at [facility]. EEG performed. I talked with neurologist and he stated that EEG was negative for seizure activity and that patient is clear for discharge. Patient will not be started on any medications for anya facial spasms in the interim but is it is recommended that she follow-up as an outpatient in the neurology clinic. Patient's labs and vital signs are stable and she is medically clear for discharge. Time Spent with Patient Time attestation: Total time spent providing and/or coordinating discharge services: Exam Narrative: GENERAL: Comfortable, no acute distress HENMT: moist mucous membranes EYES: EOM intact b/l NECK: no lymphadenopathy RESPIRATORY: clear to auscultation CARDIO: RRR GI: soft, nontender, bowel sounds present SKIN: no rashes EXTREMITIES: no edema, redness or tenderness DS: Data Data Completed and Pending Labs on day of discharge: Labs from last 24 hours 11/18/22 11/18/22 11/17/22 04:49 04:49 05:27 WBC 8.6 RBC 3.71 L Hgb 11.5 L Hct 35.3 L MCV 95.1 MCH 31.0 MCHC 32.6 RDW 12.7 Plt Count 289 MPV 9.4 Immature Gran % (Auto) 0.3 Neut % (Auto) 64.5 Lymph % (Auto) 21.8 [place] % (Auto) 11.0 H Eos % (Auto) 1.9 Baso % (Auto) 0.5 Lymph # (Auto) 1.88 [place] # (Auto) 1.0 H Eos # (Auto) 0.2 Baso # (A
--- NOTE | 2022-11-19 09:01 | WPDNEUROLOGY ---
Neurology EEG Report General Information Date of Study: 11/18/22 TEST EEG DIAGNOSIS chorea CONDITION OF RECORDING awake drowsy and sleep EEG NUMBER [id number] CLINICAL HISTORY patient reports she is here in the hospital for facial twitching but was given meds for it 2 days ago and has not had any more facial twitching EEG DESCRIPTION background rhythm consists of well-organized low to medium voltage 8 to 9 hertz per 2nd alpha admixed with low-voltage 15 to 18 hertz per 2nd did low voltage beta activity seen diffusely during drowsiness admixed with waxing and waning posterior alpha rhythm. Hyperventilation not done. Photic stimulation not done. Non paroxysmal. Nonfocal. Nonlateralizing. IMPRESSION No significant abnormalities noted
== END 2022-11-18 16:22 | disposition home or self-care (01) | DRG 57 ==
LOC: ANHED 12:53 → ANH2MED 13:17
PROVIDERS: Nurse Practitioner; Admitting Provider Student in an Organized Health Care Education/Training Program; Emergency Provider Physician Assistant; PCP Nurse Practitioner Family; Visit Provider Internal Medicine Critical Care Medicine
DX: G25.5 Other chorea (principal); E03.9 Hypothyroidism, unspecified; G62.9 Polyneuropathy, unspecified; F32.9 Major depressive disorder, single episode, unspecified; G25.81 Restless legs syndrome; K21.9 Gastro-esophageal reflux disease without esophagitis; T78.40XA Allergy, unspecified, initial encounter; Z96.653 Presence of artificial knee joint, bilateral; Z90.49 Acquired absence of other specified parts of digestive tract; Z90.721 Acquired absence of ovaries, unilateral
CPT/HCPCS: 36415; 70450; 80053; 83735; 84100; 84439; 84443; 84480; 85025; 95816; 96374; 96376; 99285; A9270; G0378; J1200

== ENCOUNTER 2022-12-23 15:36 | Outpatient (CLI) | payer MEDICARE, SELFPAY | END 2022-12-23 15:37 | disposition home or self-care (01) | LOC: ANHLAB 15:38 | PROVIDERS: PCP Nurse Practitioner Family; Visit Provider Internal Medicine Critical Care Medicine | DX: G25.81 Restless legs syndrome (principal); Z98.890 Other specified postprocedural states | CPT/HCPCS: 36415; 82728 ==

== ENCOUNTER 2023-02-07 07:15 | Outpatient (CLI) | payer MEDICARE, SELFPAY ==
[2023-02-07 08:23] LABS: Cholesterol 153 mg/dL (0-200); HDL Direct 43 mg/dL; Triglycerides 149 mg/dL (<150)
[2023-02-07 08:33] LABS: LDL Cholesterol Direct 76 mg/dL
[2023-02-07 09:15] LABS: Thyroid Stimulating Hormone Reflex < 0.015 uIU/mL (0.465-4.68)
[2023-02-07 10:06] LABS: Free T4 Free Thyroxine Reflex 1.91 ng/dL (0.78-2.19)
[2023-02-07 10:47] LABS: Total Triiodothyronine (T3) 1.42 NG/ML (0.97-1.69)
== END 2023-02-07 07:16 | disposition home or self-care (01) ==
PROVIDERS: PCP Nurse Practitioner Family; Visit Provider Nurse Practitioner Family
DX: E78.5 Hyperlipidemia, unspecified (principal); E03.9 Hypothyroidism, unspecified
CPT/HCPCS: 36415; 80061; 84439; 84443; 84480

== ENCOUNTER 2023-04-17 10:00 | Outpatient (CLI) | payer MEDICARE, SELFPAY ==
[2023-04-17 11:07] LABS: Iron 115 ug/dL (37-170)
[2023-04-17 11:17] LABS: Percent Iron Saturation 34 % (20-50)
[2023-04-17 11:55] LABS: Folic Acid > 20.0 ng/mL (2.76->20)
[2023-04-21 10:20] LABS: Methylmalonic Acid 259 nmol/L (87-318)
== END 2023-04-17 10:01 | disposition home or self-care (01) ==
PROVIDERS: PCP Nurse Practitioner Family
DX: D64.9 Anemia, unspecified (principal)
CPT/HCPCS: 36415; 82607; 82746; 83540; 83550; 83921

== ENCOUNTER 2023-05-05 14:44 | Outpatient (CLI) | payer MEDICARE, SELFPAY ==
[2023-05-05 16:33] LABS: Thyroid Stimulating Hormone Reflex < 0.015 uIU/mL (0.465-4.68)
[2023-05-05 17:22] LABS: Free T4 Free Thyroxine Reflex 1.13 ng/dL (0.78-2.19)
[2023-05-05 18:35] LABS: Total Triiodothyronine (T3) 1.12 NG/ML (0.97-1.69)
== END 2023-05-05 14:45 | disposition home or self-care (01) ==
LOC: ANHLAB 14:49
PROVIDERS: PCP Nurse Practitioner Family; Visit Provider Nurse Practitioner Family
DX: E03.9 Hypothyroidism, unspecified (principal)
CPT/HCPCS: 36415; 84439; 84443; 84480

== ENCOUNTER 2023-07-16 10:00 | Outpatient (CLI) | payer MEDICARE, SELFPAY ==
[2023-07-16 12:04] LABS: Thyroid Stimulating Hormone Reflex 0.017 uIU/mL (0.465-4.68)
[2023-07-16 12:42] LABS: Free T4 Free Thyroxine Reflex 1.36 ng/dL (0.78-2.19)
[2023-07-16 13:40] LABS: Total Triiodothyronine (T3) 0.96 NG/ML (0.97-1.69)
== END 2023-07-16 10:01 | disposition home or self-care (01) ==
LOC: ANHLAB 10:03
PROVIDERS: PCP Nurse Practitioner Family; Visit Provider Nurse Practitioner Family
DX: E03.9 Hypothyroidism, unspecified (principal)
CPT/HCPCS: 36415; 84439; 84443; 84480

== ENCOUNTER 2023-08-27 09:15 | Emergency (ER) | payer MEDICARE, SELFPAY ==
[2023-08-27] VITALS (7 sets, daily range): BP systolic 133–150; BP diastolic 64–106; PULSE 63–81; RESP 14–18; TEMP 36.8; O2SAT 96–100
--- NOTE | 2023-08-27 09:23 | ECG_ITS ---
Measurements Intervals [place] Rate: 72 P: 49 MA: 141 QRS: 2 QRSD: 125 T: 28 QT: 399 QTc: 438 Interpretive Statements SINUS RHYTHM RIGHT BUNDLE BRANCH BLOCK ABNORMAL ECG COMPARED TO ECG 01/22/2021 16:23:47 NO SIGNIFICANT CHANGES Electronically Signed On 08-27-2023 10:48:29 POTATO SPOTTER by Cristofer Canales D.O.
--- NOTE | 2023-08-27 11:43 | ED.GENADULT ---
HPI - General Adult General Chief complaint: Unspecified Stated complaint: muscle spasms in throat Time Seen by Provider: 08/27/23 11:37 History of Present Illness HPI narrative: 68-year-old female presenting to the emergency department for evaluation of difficulty swallowing secondary to spasms. Patient does have history of chorea and has had follow-up with Neurology for this. Patient is prescribed Benadryl and Cogentin. Patient did take these medications this morning Related Data Home Medications Medication Instructions Recorded Confirmed albuterol sulfate 90 mcg/actuation 90 mcg inhalation PRN PRN 06/16/19 12/23/22 aerosol inhaler Bronchospasm bupropion HCl 150 mg 24 hr tablet, 150 mg PO DAILY antidepressant 06/16/19 12/23/22 extended release carbidopa 25 mg-levodopa 100 mg 1 tablet PO TID parkinsons 06/16/19 12/23/22 tablet duloxetine 60 mg capsule,delayed 60 mg PO DAILY 06/16/19 12/23/22 release ergocalciferol (vitamin D2) 1,250 50,000 unit PO WEEKLY 06/16/19 12/23/22 mcg (50,000 unit) capsule hydrocodone 7.5 mg-acetaminophen 1 tablet PO Q6H PRN Pain 06/16/19 12/23/22 325 mg tablet levothyroxine 150 mcg tablet 150 mcg PO DAILY 06/16/19 12/23/22 montelukast 10 mg tablet 10 mg PO DAILY 06/16/19 12/23/22 omeprazole 40 mg capsule,delayed 40 mg PO DAILY 06/16/19 12/23/22 release potassium chloride 20 mEq 20 meq PO DAILY 06/16/19 12/23/22 tablet,extended release(part/cryst) (Klor-Con M) Allergy Relief (loratadine) 10 mg BYMOUTH DAILY 07/15/19 12/23/22 ferrous sulfate 325 mg (65 mg 325 mg PO DAILY 11/16/22 12/23/22 iron) tablet amoxicillin 500 mg capsule 500 mg PO Q12H PRN 12/23/22 12/23/22 Allergies Allergy/AdvReac Type Severity Reaction Status Date / Time pregabalin Allergy Intermediate hand/feet/leg Verified 12/23/22 14:14 swelling adhesive tape Allergy Severe Blister Uncoded 12/23/22 14:14 lorazepam Allergy Severe body Uncoded 12/23/22 14:14 spasms and anxiety attack Review of Systems Review of Systems: All systems reviewed & are unremarkable except as noted in HPI and below PMFSH Past Medical History Medical History Allergies Depression GERD with apnea Hepatitis A Hypothyroidism Peripheral neuropathy Restless leg Surgical History Surgical History H/O arthroscopic knee surgery H/O section H/O colonoscopy with polypectomy H/O dilation and curettage H/O lumpectomy History of orthopedic surgery History of right salpingo-oophorectomy History of tonsillectomy History of total bilateral knee replacement Hx of cholecystectomy S/P left rotator cuff repair Status post ORIF of fracture of ankle times 2 Family History Family History Mother Parkinson disease Family history of osteoarthritis Breast cancer Other Muscular dystrophy Grandparent Colon cancer Father Diabetes mellitus Social History Social History Social History: 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 She designated herself is a full code. Smoking status: Never smoker Alcohol intake: current Alcohol use details: rarely Substance use: never Substance use type: does not use Lack of Transportation: No Lack of Food: Never True Current Housing: I Have Housing Concerned About Future Housing: No Difficulty Paying Gas/Electric Bills: No Difficulty Paying for Meds: No Currently Unemployed: No Education: Bachelor's Degree Difficulty w/ Childcare or Family Care: No Living arrangements: with family Additional living arrangements comments: Her Elliott is a durable power cheese maker. She has 2 children. 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/education comments: [employer]
[2023-08-27 12:00] LABS: Basophils Percent Auto 0.6 % (0.2-1.2); Eosinophils Absolute Auto 0.1 K/mm3 (0-0.3); Eosinophils Percent Auto 0.8 % (0-4.4); Hematocrit 39.9 % (37.0-47.0); Hemoglobin 12.7 g/dL (12.0-15.0); Immature Granulocyte Absolute 0.01 K/mm3 (0.00-0.031); Immature Granulocyte Percent A 0.2 % (0-0.5); Lymphocytes Absolute Auto 1.76 K/mm3 (0.9-3.2); Lymphocytes Percent Auto 27.7 % (18.3-44.2); Mean Corpuscular HGB Conc 31.8 g/dl (32-36); Mean Corpuscular Hemoglobin 31.4 pg (26-34); Mean Corpuscular Volume 98.8 fl (80-100); Mean Platelet Volume 8.9 fl (7.4-10.4); Monocytes Absolute Auto 0.5 K/mm3 (0.1-0.6); Monocytes Percent Auto 8.5 % (2.6-8.5); Neutrophils Percent Auto 62.2 % (45.5-73.1); Platelet Count Result 286 k/mm3 (150-375); Red Blood Count 4.04 M/mm3 (4.2-5.4); Red Cell Distribution Width 12.4 % (11.5-14.5); White Blood Count 6.4 K/mm3 (4.5-10.0)
[2023-08-27 12:11] LABS: Alanine Aminotransferase 8 U/L (6-35); Albumin Level 4.3 g/dL (3.5-5.1); Alkaline Phosphatase 140 U/L (38-126); Anion Gap 4 mmol/L (8-16); Aspartate Amino Transferase 27 U/L (14-36); Bilirubin,Total 0.4 mg/dL (0.2-1.3); Blood Urea Nitrogen 18 mg/dL (7-17); Calcium 8.9 mg/dL (8.4-10.2); Carbon Dioxide 34 mmol/L (22-30); Chloride 99 mmol/L (98-107); Estimated Glomerular Filt Rate > 60; Glucose 100 mg/dL (65-110); Magnesium 2.1 mg/dL (1.6-2.3); Potassium 4.5 mmol/L (3.4-5.0); Sodium 137 mmol/L (137-145)
[2023-08-27] MEDS: diphenhydrAMINE HCl INJ 50 MG/ML VIAL 25 MG IV PUSH (12:38)
[2023-08-27] MEDS: SODIUM CHLORIDE 0.9% IV 50 ML 100 ML (12:38)
[2023-08-27] MEDS: BENZTROPINE MESYLATE INJ 1 MG/ML AMPUL IM (12:38)
[2023-08-27] MEDS: levETIRAcetam 1000MG/NACL100ML 1,000 MG/100 ML BAG 400 MG IVPB (15:46)
== END 2023-08-27 16:51 | disposition home or self-care (01) ==
PROVIDERS: Emergency Provider Emergency Medicine; PCP Nurse Practitioner Family
DX: G51.39 Clonic hemifacial spasm, unspecified (principal); F32.A Depression, unspecified; K21.9 Gastro-esophageal reflux disease without esophagitis; E03.9 Hypothyroidism, unspecified
CPT/HCPCS: 36415; 80053; 83735; 85025; 93005; 96361; 96365; 96372; 96375; 99284; J0515; J1200; J1953

== ENCOUNTER 2023-09-22 08:33 | Outpatient (CLI) | payer MEDICARE, SELFPAY ==
[2023-09-22 09:24] LABS: Cholesterol 188 mg/dL (0-200); HDL Direct 62 mg/dL; Triglycerides 68 mg/dL (<150)
[2023-09-22 09:25] LABS: Anion Gap 1 mmol/L (8-16); Blood Urea Nitrogen 21 mg/dL (7-17); Calcium 8.8 mg/dL (8.4-10.2); Carbon Dioxide 34 mmol/L (22-30); Chloride 98 mmol/L (98-107); Estimated Glomerular Filt Rate > 60; Glucose 102 mg/dL (65-110); Potassium 3.8 mmol/L (3.4-5.0); Sodium 133 mmol/L (137-145)
[2023-09-22 09:36] LABS: LDL Cholesterol Direct 105 mg/dL
[2023-09-22 10:56] LABS: Free T4 Free Thyroxine Reflex 0.73 ng/dL (0.78-2.19)
== END 2023-09-22 08:34 | disposition home or self-care (01) ==
LOC: ANHLAB 08:39
PROVIDERS: PCP Nurse Practitioner Family; Visit Provider Nurse Practitioner Family
DX: G51.39 Clonic hemifacial spasm, unspecified (principal); E03.9 Hypothyroidism, unspecified; E66.9 Obesity, unspecified
CPT/HCPCS: 36415; 80048; 80061; 84439; 84443

== ENCOUNTER 2024-03-15 07:09 | Outpatient (CLI) | payer MEDICARE, SELFPAY ==
[2024-03-15 08:02] LABS: Basophils Absolute Auto 0.1 K/mm3 (0.0-0.1); Basophils Percent Auto 0.8 % (0.2-1.2); Eosinophils Absolute Auto 0.1 K/mm3 (0-0.3); Eosinophils Percent Auto 1.8 % (0-4.4); Hemoglobin 12.7 g/dL (12.0-15.0); Immature Granulocyte Absolute 0.02 K/mm3 (0.00-0.031); Immature Granulocyte Percent A 0.3 % (0-0.5); Lymphocytes Absolute Auto 2.46 K/mm3 (0.9-3.2); Lymphocytes Percent Auto 40.6 % (18.3-44.2); Mean Corpuscular HGB Conc 32.6 g/dl (32-36); Mean Corpuscular Hemoglobin 31.2 pg (26-34); Mean Corpuscular Volume 95.8 fl (80-100); Mean Platelet Volume 9.2 fl (7.4-10.4); Monocytes Absolute Auto 0.7 K/mm3 (0.1-0.6); Monocytes Percent Auto 12.2 % (2.6-8.5); Neutrophils Absolute Auto 2.7 K/mm3 (1.3-6.7); Neutrophils Percent Auto 44.3 % (45.5-73.1); Platelet Count Result 310 k/mm3 (150-375); Red Blood Count 4.07 M/mm3 (4.2-5.4); Red Cell Distribution Width 11.9 % (11.5-14.5); White Blood Count 6.1 K/mm3 (4.5-10.0)
[2024-03-15 08:16] LABS: Albumin Level 3.9 g/dL (3.5-5.1); Alkaline Phosphatase 129 U/L (38-126); Anion Gap 7 mmol/L (4-12); Aspartate Amino Transferase 22 U/L (14-36); Bilirubin,Total 0.4 mg/dL (0.2-1.3); Blood Urea Nitrogen 18 mg/dL (7-17); Calcium 8.9 mg/dL (8.4-10.2); Carbon Dioxide 33 mmol/L (22-30); Chloride 98 mmol/L (98-107); Estimated Glomerular Filt Rate > 60; Glucose 100 mg/dL (65-110); Potassium 4.2 mmol/L (3.4-5.0); Sodium 138 mmol/L (137-145)
[2024-03-15 08:19] LABS: Alanine Aminotransferase < 6 U/L (6-35)
[2024-03-15 08:59] LABS: Free T4 Free Thyroxine 1.73 ng/mL (0.78-2.19)
[2024-03-15 09:12] LABS: Thyroid Stimulating Hormone Reflex < 0.015 uIU/mL (0.465-4.68)
[2024-03-15 10:49] LABS: Free T4 Free Thyroxine Reflex 1.73 ng/dL (0.78-2.19)
[2024-03-15 13:20] LABS: Total Triiodothyronine (T3) 1.36 NG/ML (0.97-1.69)
== END 2024-03-15 07:10 | disposition home or self-care (01) ==
PROVIDERS: PCP Nurse Practitioner Family; Visit Provider Nurse Practitioner Family
DX: E03.9 Hypothyroidism, unspecified (principal); D64.9 Anemia, unspecified; G25.81 Restless legs syndrome; G51.39 Clonic hemifacial spasm, unspecified; G62.89 Other specified polyneuropathies
CPT/HCPCS: 36415; 80053; 84439; 84443; 84480; 85025

== ENCOUNTER 2024-05-10 23:01 | Emergency (ER) | payer MEDICARE, SELFPAY ==
[2024-05-10 23:08] VITALS: BP 150/81; PULSE 100; RESP 16; TEMP 36.6; O2SAT 98
--- NOTE | 2024-05-11 01:06 | ED.SKABFB ---
HPI - Skin/Abscess/Foreign Bdy General Chief complaint: Skin/Abscess/Foreign Body Stated complaint: Dressing change/worried about infection Time Seen by Provider: 05/11/24 00:59 Source: patient Mode of arrival: ambulatory Limitations: no limitations History of Present Illness HPI narrative: This is a 68 year old female that presents to the ER for a dressing change. Reports she had a inspire placed for sleep apnea last night. She took the bandage off because the tape was irritating her. She is allergic to adhesive. Presents to have the wounds looked at and dressing changed. Related Data Home Medications Medication Instructions Recorded Confirmed albuterol sulfate 90 mcg/actuation 90 mcg inhalation PRN PRN 06/16/19 03/18/24 aerosol inhaler Bronchospasm carbidopa 25 mg-levodopa 100 mg 1 tablet PO TID parkinsons 06/16/19 03/18/24 tablet ergocalciferol (vitamin D2) 1,250 50,000 unit PO WEEKLY 06/16/19 03/18/24 mcg (50,000 unit) capsule hydrocodone 7.5 mg-acetaminophen 1 tablet PO Q6H PRN Pain 06/16/19 03/18/24 325 mg tablet Allergy Relief (loratadine) 10 mg BYMOUTH DAILY 07/15/19 03/18/24 ferrous sulfate 325 mg (65 mg 325 mg PO DAILY 11/16/22 03/18/24 iron) tablet clonazepam 1 mg tablet 1 mg PO DAILY 09/03/23 03/18/24 gabapentin 300 mg capsule 300 mg PO DAILY 09/03/23 03/18/24 bupropion HCl 300 mg 24 hr tablet, 300 mg PO QAM 04/08/24 extended release Allergies Allergy/AdvReac Type Severity Reaction Status Date / Time pregabalin Allergy Intermediate hand/feet/leg Verified 03/18/24 13:00 swelling adhesive tape Allergy Severe Blister Uncoded 03/18/24 13:00 lorazepam Allergy Severe body Uncoded 03/18/24 13:00 spasms and anxiety attack Review of Systems Review of Systems: CONSTITUTIONAL: Denies fever SKIN: Denies rash or itching. All systems reviewed & are unremarkable except as noted in HPI and below PMFSH Past Medical History Medical History Allergies Depression Epidermal inclusion cyst GERD with apnea Hepatitis A Hidradenitis Hypothyroidism Obese COSTA on CPAP Peripheral neuropathy Pilar cyst Restless leg Subcutaneous mass Vitamin D deficiency Surgical History Surgical History H/O arthroscopic knee surgery H/O section H/O colonoscopy with polypectomy H/O dilation and curettage H/O lumpectomy History of orthopedic surgery History of right salpingo-oophorectomy History of tonsillectomy History of total bilateral knee replacement Hx of cholecystectomy S/P left rotator cuff repair Status post ORIF of fracture of ankle times 2 Family History Family History Mother Parkinson disease Family history of osteoarthritis Breast cancer Other Muscular dystrophy Grandparent Colon cancer Father Diabetes mellitus Social History Social History Social History: 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 She designated herself is a full code. Smoking status: Never smoker Alcohol intake: current Alcohol use details: rarely Substance use: never Substance use type: does not use Do You Feel Safe in your Home?: Yes Lack of Transportation: No Lack of Food: Never True Current Housing: I Have Housing Concerned About Future Housing: No Difficulty Paying Gas/Electric Bills: No Difficulty Paying for Meds: No Currently Unemployed: No Education: Bachelor's Degree Difficulty w/ Childcare or Family Care: No Living arrangements: with family Additional living arrangements comments: Her Elliott is a durable power commonwealth attorney. She has 2 children. 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
[2024-05-11 01:30] VITALS: BP 142/92; PULSE 71; RESP 15; O2SAT 98
== END 2024-05-11 01:31 | disposition home or self-care (01) ==
PROVIDERS: Emergency Provider Physician Assistant; PCP Nurse Practitioner Family
DX: Z48.01 Encounter for change or removal of surgical wound dressing (principal); E03.9 Hypothyroidism, unspecified; E55.9 Vitamin D deficiency, unspecified; K21.9 Gastro-esophageal reflux disease without esophagitis; G47.33 Obstructive sleep apnea (adult) (pediatric); G62.9 Polyneuropathy, unspecified; G25.81 Restless legs syndrome; Z86.0100 Personal history of colon polyps, unspecified; Z90.79 Acquired absence of other genital organ(s); Z90.721 Acquired absence of ovaries, unilateral; Z96.653 Presence of artificial knee joint, bilateral; Z90.49 Acquired absence of other specified parts of digestive tract
CPT/HCPCS: 99281

== ENCOUNTER 2024-05-27 08:37 | Outpatient (CLI) | payer MEDICARE, SELFPAY ==
[2024-05-27 09:18] LABS: Anion Gap 4 mmol/L (4-12); Blood Urea Nitrogen 22 mg/dL (7-17); Calcium 9.3 mg/dL (8.4-10.2); Carbon Dioxide 32 mmol/L (22-30); Chloride 100 mmol/L (98-107); Estimated Glomerular Filt Rate > 60; Glucose 96 mg/dL (65-110); Potassium 4.5 mmol/L (3.4-5.0); Sodium 136 mmol/L (137-145)
[2024-05-27 10:27] LABS: Thyroid Stimulating Hormone Reflex < 0.015 uIU/mL (0.465-4.68)
[2024-05-27 14:36] LABS: Free T4 Free Thyroxine Reflex 1.27 ng/dL (0.78-2.19)
[2024-05-27 15:30] LABS: Total Triiodothyronine (T3) 1.24 NG/ML (0.97-1.69)
== END 2024-05-27 08:38 | disposition home or self-care (01) ==
LOC: ANHLAB 08:42
PROVIDERS: PCP Nurse Practitioner Family; Visit Provider Nurse Practitioner Family
DX: E87.6 Hypokalemia (principal); E03.9 Hypothyroidism, unspecified
CPT/HCPCS: 36415; 80048; 84439; 84443; 84480

== ENCOUNTER 2024-08-23 07:26 | Outpatient (CLI) | payer MEDICARE, SELFPAY ==
[2024-08-23 09:05] LABS: Free T4 Free Thyroxine 0.95 ng/dL (0.78-2.19)
--- OUTSIDE RECORDS SUMMARY | 2024-08-26 11:35 | XMS_ITS | Data Portability ---
Author Organization [facility], Main Office Address [address] [place] [address] Assessment Encounter Date Assessment Date Assessment LastModified by Organization Details LastModified Time 01/17/2023 01/17/2023 discussed getting shingles and td vaccine. Not available 01/17/2023 14:30:58 08/15/2023 08/15/2023 discussed getting shingles and td vaccine. Not available 08/15/2023 12:18:19 Plan of Treatment Reminders Order Date Submit Date Provider Last Modified By Organization Details Last Modified Time Details Appointments None recorded. Lab lipid panel, serum [address] (Admitting), [address] [place] [address] [address], [place], [address], 3 08:00:10 TSH, serum, reflex free T4 2022 023 [facility] (Lab), [address] [place] [address], [address], 3 12:25:39 Referral None recorded. Procedures None recorded. Surgeries None recorded. Imaging MAMMO, screening, digital, bilateral 2022 023 [email or web address] Not available 3 09:06:22 bone density 2022 023 Not available 3 08:57:14 Medication Orders albuterol sulfate HFA 90 mcg/actuati on aerosol inhaler 2023 024 [id number], [address], [place], [address], 4 12:54:52 bupropion HCl XL 300 mg 24 hr tablet, extended release 2023 024 [id number], [address] [facility], [place], [place], [id number], 4 12:54:56 Klor-Con M20 mEq tablet,exte nded release 2023 024 [id number], [address], [place], [address], 4 12:54:52 duloxetine 60 mg capsule,del ayed release 2023 024 [id number], [address], [place], [address], 4 12:54:52 Patient TargetsNo targets recorded. Patient Instructions Encounter Date Encounter Id Patient Instructions Last Modified By Organization Details Last Modified Time 01/17/2023 [id number] fu in 6 mo for check up 30 min Not available 01/17/2023 16:05:19 08/15/2023 [id number] Fu with new pcp in 1-3 mo. 08/15/23 pt aware of samira departure Not available 08/15/2023 12:19:03 Reason for Referral None Reported. Results Created Date Observation Date Name Description Value Unit Range Abnormal Flag Note LastModifiedBy Organization Detail LastModifiedTime 08/22/1908/22/2022 imagi ng/di agnos tic resul t No observ ation record ed. [id number] [facility] [address], [place], [address], 10/02/2022 07:01:19 11/17/19 23 11/16/2022 CT, brain , w/o contr ast No observ ation record ed. [facility] [address], [place], [address], 11/28/2022 15:21:30 11/20/19 23 11/17/2022 iain nuous EEG monit oring , profe sugey al compo nent; 12-26 hrs, with VEEG (PROC ) No observ ation record ed. [facility] [address], [place], [address], 11/28/2022 15:21:29 02/15/20 23 lipid panel , serum [facility] [address] [place] [address] Patien t Name: ALISA SHUKLA ion #: [id number] Sex: F : 1954 2 Dictat ed By: Baldomero trevino Attend ing Physic kain: SAMM HOGAN [facility] Physic kain: SAMIRA KEMP Exam Date: 2022 13:43 PM Exam Name: XR DEXA AXIAL/ HIP/PE LVIS/S PINE Admitt ing Diagno sis(es ): CLINIC AL HISTOR Y: Postme nopaus al screen ing for osteop orosis . TECHNI QUE: The study was perfor med using a [employer] Unit. Left proxim al femora l and left forear m were evalua jack in the fronta l projec tions. COMPAR ERNESTO: Prior DEXA scan dated 12/05/19 18. FINDIN GS: Left distal third radius demons trates a bone minera l densit y of 0.689 g/cm2 with a T-scor e of -2.1, consis tent with osteop enia. There has been a 14.4% interv al decrea se in bone minera l densit y in the distal third left radius compar ed to the prior exam. Left femora l neck evalua tion demons trates a bone minera l densit y of 0.825 g/cm2 with a T-scor e of -1.5, consis tent with osteop enia. There has been a 5.8% interv al decrea se in bone minera l densit y in the left femora l neck compar ed to the prior exam. IMPRES ESTRADA: Bone minera l densit y is consis tent with osteop enia based on lowest T score as detail ed above. Electr onical ly Signed by: Baldomero trevino at 2022 08:03: 02 AM Page [address] (Imaging) [address] [place], [address], 02/21/2023 08:00:10 02/15/20 23 02/13/2023 bone densi ty No observ ation record ed. [address] [place], [address], 02/18/2023 15:08:12 02/15/20 23 MAMMO , scree michael, digit al, bilat eral [facility] [address] [place] [address] [phone] Patien t Name: ALISA SHUKLA Access ion #: [id number] Sex: F : 1954 2 Dictat ed By: Baldomero trevino Attend ing Physic kain: SAMM HOGAN [facility] Physic kain: SAMIRA KEMP Exam Date: 2022 13:43 PM Exam Name: MG DIGITA L TERI BILAT SCREEN Admitt ing Diagno sis(es ): CLINIC AL HISTOR Y: Screen ing exam, no breast compla ints. No person al histor y of breast cancer . Prior benign surgic al biopsy of the left breast in 1999. Family histor y of breast cancer in her mother at age 75. COMPAR ERNESTO: Prior mammog surjit dated 03/09/20 20 and 019. TECHNI QUE: Full field bilate ral digita l mammog marilu was perfor med in the CC and MLO projec tions. CAD was utiliz ed. FINDIN GS: The breast s are hetero geneou sly dense, which may obscur e small masses (categ ory C). Asymme try in the left outer breast on the cc view with possib le correl ated in the left upper breast on the MLO view at anteri or depth, appear s new or more conspi cuous compar ed to the prior exam. Furthe r evalua tion with diagno stic left breast mammog yaritza and possib le ultras ound recomm ended. IMPRES ESTRADA: Incomp lete examin ation. Additi onal imagin g needed . RECOMM ENDATI ONS: Diagno stic left breast mammog yaritza and possib le ultras ound recomm ended. The patien t will be notifi ed of the mammog marilu result s per hospit al protoc ol. BI-RAD S CATEGO RY: 0; Incomp lete - need additi onal imagin g evalua tion. Electr onical ly Signed by: Baldomero trevino at 2022 08:11: 43 AM Page 1 [facility] (Imaging) [address] [place], [address], 02/18/2023 15:08:13 03/07/20 23 03/07/2023 US, luis t, [facility] [address] [place] [address] [phone] Patien t Name: ALISA SHUKLA ion #: [id number] Sex: F : 1954 7 Dictat ed By: Bertin Patton Attend ing Physic kain: SAMM HOGAN Orderi Physic kain: SAMM HOGAN Exam Date: 2022 13:57 PM Exam Name: US BREAST LIMITE D LT Admitt ing Diagno sis(es ): Histor y: Abnorm al mammog yaritza. COMPAR ERNESTO: 01/08/13 mammog yaritza. TECHNI QUE: Spot compre ssion views and misha of the left breast follow ed by ultras ound FINDIN GS Mammog raphic findin gs: Dense breast tissue seen with area of abnorm ality not clearl y visual ized. Ultras ound shows a small cyst within the left breast 2:00 4 x 3 mm no solid lesion s.. No dilate d ducts or distor tion. Impres estrada simple cyst within the left breast .. BI-RAD S 2. Benign . Sugges t annual follow -up Electr onical ly Signed by: Bertin Patton at 2022 14:21: 10 PM Page [address] (Imaging) [address] [place], [address], 03/12/2023 15:17:05 03/07/20 23 03/07/2023 TSH, serum , refle x free T4 [facility] [address] [place] [address] [phone] Patien t Name: ALISA SHUKLA ion #: [id number] Sex: F : 1954 7 Dictat ed By: Bertin Patton Attend ing Physic kain: SAMM HOGAN Orderi Physic kain: SAMM HOGAN Exam Date: 2022 13:07 PM Exam Name: MG MAMMO DIGITA L UNILAT LT Admitt ing Diagno sis(es ): Histor y: Abnorm al mammog yaritza. COMPAR ERNESTO: 01/08/13 mammog yaritza. TECHNI QUE: Spot compre ssion views and misha of the left breast follow ed by ultras ound FINDIN GS Mammog raphic findin gs: Dense breast tissue seen with area of abnorm ality not clearl y visual ized. Ultras ound shows a small cyst within the left breast 2:00 4 x 3 mm no solid lesion s.. No dilate d ducts or distor tion. Impres estrada simple cyst within the left breast .. BI-RAD S 2. Benign . Sugges t annual follow -up Electr onical ly Signed by: Bertin Patton at 2022 14:21: 10 PM Page [address] (Imaging) [address] [place], [address], 04/11/2023 07:57:39 Result Notes None recorded. Problems Name Problem SNOMED Code Status Onset Date Resolution Date Notes Provider Name and Address Organization Details Recorded Time Excessive cerumen in ear canal 924374407 Completed Not Available [facility] 3 06:57:57 Lumbar radiculop athy 644685579 Active Not Available [facility] 4 07:02:59 Folliculi tis 30307254 Completed Not Available [facility] 3 06:57:57 Pain of right ankle joint 72911140264 995640 Active 3 Not Available [facility] 4 07:02:59 Otalgia 68502989 Completed Not Available [facility] 3 06:57:57 Pain in throat 061366637 Active 2018 Not Available [facility] 4 07:02:59 Asthma 069037656 Active 2017 Not Available [facility] 4 07:02:59 Skin tag 754826776 Completed Not Available [facility] 3 06:57:57 Gastroeso phageal reflux disease 120344641 Active Not Available [facility] 4 07:02:59 Edema 720646600 Completed Not Available [facility] 3 06:57:58 Vaginal discharge 259197343 Active 2017 Not Available [facility] 4 07:02:59 Leukocyte s in urine 005319044 Completed Not Available [facility] 3 06:57:58 Pain in left lower limb 480825030 Completed Not Available [facility] 3 06:57:58 Periphera l nerve disease 575477531 Active Not Available [facility] 4 07:02:59 Knee pain Active Not Available [facility] 4 07:02:59 Osteopeni a 438462213 Active 2017 Not Available [facility] 4 07:02:59 Vaginal dryness 57940501 Active Not Available [facility] 4 07:02:59 Restless legs 97953254 Active Not Available [facility] 4 07:02:59 Vitamin D deficienc y 03936647 Active Not Available [facility] 4 07:02:59 Depressiv e disorder 87785894 Active Not Available [facility] 4 07:02:59 Migraine 01860591 Active Not Available [facility] 4 07:02:59 Hypertens nupur disorder 54938689 Active Not Available [facility] 4 07:02:59 Hypothyro idism 69548430 Active Not Available [facility] 4 07:02:59 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 Not Available [facility] 4 07:02:59 Periodic limb movement disorder 499246767 Active 2020 Not Available [facility] 4 07:02:59 History of polyp of colon 207259609 Active Not Available [facility] 4 07:02:59 Acute urinary tract infection 599316041 Completed Not Available [facility] 3 06:57:59 Hypokalem ia 92346371 Active 2017 Not Available [facility] 4 07:02:59 Abnormal cervical Papanicol aou smear 229599980 Completed Not Available [facility] 3 06:57:59 Seasonal allergy 927916705 Active Not Available [facility] 4 07:02:59 Anxiety 67856326 Active Not Available [facility] 4 07:02:59 Hip pain 65004248 Active Not Available [facility] 4 07:02:59 Dysuria 06110862 Active 2020 Not Available [facility] 4 07:02:59 Sinus headache 5675891 Completed Not Available [facility] 3 06:58:00 Cough 86478146 Completed Not Available [facility] 3 06:58:00 Hyperlipi demia 99093067 Active Not Available [facility] 4 07:02:59 Essential hypertens ion 20271247 Active 2017 Not Available [facility] 4 07:02:59 Allergic rhinitis 48067842 Active 2018 Not Available [facility] 4 07:02:59 Urinary tract infectiou s disease 57882193 Completed Not Available [facility] 3 06:58:00 Sleep apnea 13993913 Active Not Available [facility] 4 07:02:59 Posterior rhinorrhe a 55183397 Active Not Available [facility] 4 07:02:59 Postmenop ausal state 87047165 Active 2017 Not Available [facility] 4 07:02:59 Greater trochante marian pain syndrome 1470880 Active Not Available [facility] 4 07:02:59 Hypersomn ia 48794165 Active 2020 Not Available [facility] 4 07:03:00 Obstructi ve sleep apnea syndrome 23302047 Active 2020 Not Available [facility] 4 07:03:00 Congestio n of nasal sinus 96969748 Active 2021 Not Available [facility] 4 07:03:00 Chronic pain 34338276 Active Not Available [facility] 4 07:03:00 Fatigue 15911029 Active 2020 Not Available [facility] 4 07:03:00 Hemifacia l spasm 91148910 Active 2022 Not Available [facility] 4 07:02:59 Iron deficienc y anemia 54765894 Active 2022 Not Available [facility] 4 07:03:00 Mammograp hy abnormal 075053983 Active 2022 Not Available [facility] 4 07:02:59 Candidias is of skin 78257627 Active 2022 Not Available [facility] 4 07:02:59 Problem Notes None recorded. Procedures Surgical History Date Name Laterality Status Provider Name and Address Organization Details Recorded Time 02/14/20 23 Most Recent Bone Density completed Dayanna Hogan NP [address], [place], [address], [facility] [employer] [facility] 02/16/2023 22:03:01 02/14/20 23 Most Recent Mammogram completed Dayanna Hogan NP [address], [place], [address], [facility] [employer] [facility] 02/16/2023 22:05:06 09/22/19 22 Ankle Surgery completed Not Available [facility] 10/02/2022 06:55:00 03/04/20 21 Date of Last Colonoscopy completed Dayanna Manzano RN [facility] [employer] [facility] 11/28/2022 14:59:31 section completed Not Available [facility] 10/02/2022 06:55:00 Tonsillectomy completed Not Available [facility] 10/02/2022 06:55:00 Back Surgery completed Not Available [facility] 10/02/2022 06:55:00 procedure on knee completed Not Available [facility] 10/02/2022 06:55:00 Cholecystectomy completed Not Available [facility] 10/02/2022 06:55:00 Colonoscopy completed Not Available [facility] 10/02/2022 06:55:00 Imaging Results Imaging Date Name Status LastModified by Organization Details LastModified Time 08/22/2022 imaging/diagnost ic result completed [id number] [facility] [address] [facility] [address], [place], [address], 10/02/2022 07:01:19 11/16/2022 CT, brain, w/o contrast completed [address], [address], 11/28/2022 15:21:30 11/17/2022 continuous EEG monitoring, professional component; 12-26 hrs, with VEEG (PROC) completed [address], [address], 11/28/2022 15:21:29 02/14/2023 lipid panel, serum completed [address] (Imaging) [address] [place], [address], 02/21/2023 08:00:10 02/13/2023 bone density completed [address] [place], [address], 02/18/2023 15:08:12 02/14/2023 MAMMO, screening, digital, bilateral completed [address] (Imaging) [address] [place], [address], 02/18/2023 15:08:13 03/07/2023 US, breast, unilateral completed [address] (Imaging) [address] [place], [address], 03/12/2023 15:17:05 03/07/2023 TSH, serum, reflex free T4 completed [address] (Imaging) [address] [place], [address], 04/11/2023 07:57:39 Procedure Notes None recorded. Medical Equipment None Reported. Allergies Allergen ID Allergen Name Allergen Category Reaction Reaction Severity Criticality Documentation Date Start Date Code Code System Note Provider Name and Address Organization Details Recorded Time 43167 Lyrica medicatio n edema Not available Not available 10/02/2022 47762 1 RxNorm Not Available [facility] 3 07:01:13 85745 adhesive tape environme nt,medica tion swelling Not available Not available 10/02/2022 64185 UNK Not Available [facility] 3 07:01:13 87787 Ativan medicatio n Not available Not available Not available 11/28/2022 28396 9 RxNorm Dayanna Manzano RN null, [place] [facility] [place] [employer] [facility] 3 14:49:18 Medications Name Sig Start Date Stop Date Status Note LastModified by Organization Details LastModified Time amoxicill in 500 mg capsule (PRE-MED ) TAKE 4 CAPSULES BY ORAL ROUTE 1 HOUR PRIOR TO DENTAL APPOINTM ENT active Not Available Not Available No t Available levothyro xine 175 mcg tablet TAKE 1 TABLET BY MOUTH EVERY DAY 11/28 completed Not Available Not Available Not Available bupropion HCl SR 150 mg tablet,12 hr sustained -release TAKE 1 TABLET BY MOUTH TWICE DAILY active Not Available Not Available No t Available oxcarbaze pine 150 mg tablet TAKE 1 (ONE) TABLET BY MOUTH 2 TIMES DAILY active Not Available Not Available No t Available ropinirol e 1 mg tablet TAKE 1 TABLET BY MOUTH EVERYDAY AT BEDTIME 11/28 completed Not Available Not Available Not Available ipratropi um 0.5 mg-albute rol 3 mg (2.5 mg base)/3 mL nebulizat ion soln Inhale 3 mL every day by nebuliza tion route. 09/01 completed Not Available Not Available Not Available Topamax 25 mg tablet take one tablet at bedtime daily active Not Available Not Available No t Available lisinopri l 20 mg-hydroc hlorothia zide 12.5 mg tablet TAKE 1 TABLET(S ) EVERY DAY BY ORAL ROUTE. 12/17 completed Patient wants to go back to [facility]. Not Available Not Available Not Available azithromy lemuel 250 mg tablet TAKE 2 TABLETS (500 MG) BY ORAL ROUTE ONCE DAILY FOR 1 DAY THEN 1 TABLET (250 MG) BY ORAL ROUTE ONCE DAILY FOR 4 DAYS 11/18 completed Not Available Not Available Not Available aspirin 325 mg tablet TAKE 1 TABLET BY MOUTH EVERY DAY 11/28 completed Not Available Not Available Not Available benzonata te 200 mg capsule Take 1 capsule 3 times a day by oral route. active Not Available Not Available No t Available levetirac etam 500 mg tablet TAKE 1 TABLET BY MOUTH TWICE DAILY active Not Available Not Available No t Available tolterodi ne ER 4 mg capsule,e xtended release 24 hr TAKE 1 CAPSULE BY MOUTH EVERY DAY 08/16 completed Not Available Not Available Not Available hydrocodo ne 5 mg-acetam inophen 325 mg tablet TAKE 1 OR 2 TABLETS BY MOUTH EVERY 6 HOURS NEEDED FOR PAIN active Not Available Not Available No t Available Medrol (Eric) 4 mg tablets in a dose pack Take po as diredted on package. 07/09 completed Not Available Not Available Not Available prednison e 20 mg tablet TAKE 2 TABLETS BY MOUTH EVERY DAY FOR 5 DAYS 08/16 completed Not Available Not Available Not Available clonazepa m 0.5 mg tablet TAKE 1 TABLET BY MOUTH EVERYDAY AT BEDTIME active Not Available Not Available No t Available methylpre dnisolone 4 mg tablet TAKE 6 TABLETS ON DAY 1 DIRECTED ON PACKAGE AND DECREASE BY 1 TAB EACH DAY FOR A TOTAL OF 6 DAYS 07/09 completed Not Available Not Available Not Available metronida zole 500 mg tablet Take 1 tablet twice a day by oral route for 7 days. 09/01 completed BV 12/2017 Not Available Not Available Not Available ciproflox acin 500 mg tablet Take 1 tablet every 12 hours by oral route. active Not Available Not Available No t Available sulfameth oxazole 800 mg-trimet hoprim 160 mg tablet TAKE 1 TABLET BY MOUTH EVERY 12 HOURS 11/18 completed Not Available Not Available Not Available omeprazol e 40 mg capsule,d elayed release TAKE 1 CAPSULE BY MOUTH EVERY DAY active Not Available Not Available No t Available tramadol 50 mg tablet active Not Available Not Available Not Available temazepam 7.5 mg capsule TAKE ONE CAPSULE BY MOUTH EVERY DAY FOR 3 WEEKS active Not Available Not Available No t Available Depo-Medr ol 80 mg/mL suspensio n for injection 07/04 completed Not Available Not Available Not Available levothyro xine 25 mcg tablet TAKE 1 TABLET BY MOUTH EVERY DAY active Not Available Not Available No t Available zonisamid e 100 mg capsule TAKE 1 CAPSULE BY MOUTH ONCE DAILY 01/23 completed Not Available Not Available Not Available cefadroxi l 500 mg capsule active Not Available Not Available Not Available meloxicam 7.5 mg tablet TAKE 1 TABLET BY MOUTH TWICE A DAY AFTER BREAKFAS T AND EVENING MEAL 11/14 completed Not Available Not Available Not Available levothyro xine 100 mcg tablet TAKE 1 TABLET BY MOUTH EVERY DAY 08/15 completed Not Available Not Available Not Available oxycodone -acetamin ophen 5 mg-325 mg tablet TAKE 1 TABLET BY MOUTH EVERY 4 HOURS NEEDED FOR PAIN 11/28 completed Not Available Not Available Not Available levothyro xine 88 mcg tablet TAKE 1 TABLET BY MOUTH EVERY DAY active Not Available Not Available No t Available hydromorp anderson 2 mg tablet TAKE 1 OR 2 TABLETS BY MOUTH DAIANA 6-8 HOURS NEEDED FOR PAIN 12/25 completed Not Available Not Available Not Available citalopra m 20 mg tablet TAKE 1 TABLET BY MOUTH EVERY DAY active Not Available Not Available No t Available methocarb yunior 750 mg tablet active Not Available Not Available No t Available aspirin 325 mg tablet,de layed release TAKE 1 TABLET BY MOUTH TWICE A DAY WITH MEAL active Not Available Not Available No t Available oxycodone -acetamin ophen 10 mg-325 mg tablet TAKE 1 TABLET BY MOUTH EVERY 4 HOURS 06/01 completed Not Available Not Available Not Available ropinirol e 0.25 mg tablet 0.25 MG ORALLY EVERY DAY AT BEDTIME 01/17 completed Not Available Not Available Not Available amitripty line 10 mg tablet TAKE 2 TABLETS BY MOUTH EVERY DAY AT BEDTIME active Not Available Not Available No t Available benzonata te 100 mg capsule TAKE 1 CAPSULE BY MOUTH EVERY 8 HOURS NEEDED 08/16 completed Not Available Not Available Not Available hydrocodo ne 7.5 mg-acetam inophen 325 mg tablet TAKE 1 TABLET BY MOUTH FOUR TIMES A DAY active Not Available Not Available No t Available cephalexi n 500 mg capsule TAKE ONE CAPSULE BY MOUTH 3 TIMES A DAY FOR 10 DAYS 04/14 completed Not Available Not Available Not Available nortripty line 10 mg capsule TAKE 4 CAPSULES BY MOUTH AT BEDTIME active Not Available Not Available No t Available ferrous sulfate 325 mg (65 mg iron) tablet TAKE 1 TABLET BY MOUTH EVERY OTHER DAY 2023 active Not Available Not Available Not Avai lable levothyro xine 125 mcg tablet TAKE 1 TABLET BY MOUTH EVERY DAY active Not Available Not Available No t Available nystatin 100,000 unit/gram topical cream FOR APPLY TO THE AFFECTED AREA(S) OF BREAST FOLDS BEFORE BED active Not Available Not Available No t Available ranitidin e 150 mg tablet TAKE 1 TABLET BY MOUTH TWICE A DAY 04/14 completed Not Available Not Available Not Available warfarin 2 mg tablet TAKE 1 TABLET DAILY DIRECTED (WAIT FOR DOCTORS INSTRUCT IONS) 06/01 completed Not Available Not Available Not Available naproxen 500 mg tablet,de layed release active Not Available Not Available Not Available warfarin 5 mg tablet TAKE 1 TABLET BY MOUTH DAILY DIRECTED . WAIT FOR DOCTORS INSTRUCT IONS 06/01 completed Not Available Not Available Not Available levothyro xine 150 mcg tablet TAKE 1 TABLET BY MOUTH EVERY DAY 02/07 completed Not Available Not Available Not Available benztropi ne 1 mg tablet 1 MG ORALLY ONCE NEEDED FOR TAKE AT ONSET OF ABNORMAL FACIAL MOVEMENT S 01/17 completed Not Available Not Available Not Available pramipexo le 0.125 mg tablet TAKE 1 TABLET BY MOUTH TWICE A DAY 11/09 completed Not Available Not Available Not Available docusate sodium 100 mg capsule TAKE 1 CAPSULE BY MOUTH TWICE A DAY 01/17 completed Not Available Not Available Not Available pramipexo le 0.25 mg tablet TAKE 1 TABLET BY MOUTH TWICE A DAY 08/15 completed Not Available Not Available Not Available gabapenti n 300 mg capsule TAKE 1 CAPSULE BY MOUTH EVERYDAY AT BEDTIME active Not Available Not Available No t Available triamtere ne 37.5 mg-hydroc hlorothia zide 25 mg tablet TAKE 1 TABLET BY MOUTH EVERY DAY (LAST FILL UNTIL SEEN 06/05/18) 01/07 completed Not Available Not Available Not Available omeprazol e 20 mg capsule,d elayed release Take 1 capsule every day by oral route for 90 days. active Not Available Not Available No t Available etodolac 400 mg tablet active Not Available Not Available Not Available monteluka st 10 mg tablet TAKE 1 TABLET BY MOUTH EVERY DAY IN THE EVENING active Not Available Not Available No t Available hydrocodo ne 5 mg-acetam inophen 500 mg tablet 05/03 completed Not Available Not Available Not Available levothyro xine 200 mcg tablet TAKE 1 TABLET BY MOUTH EVERY DAY 09/07 completed Not Available Not Available Not Available furosemid e 20 mg tablet TAKE 1 TO 2 TABLETS BY MOUTH EVERY DAY active Not Available Not Available No t Available ergocalci ferol (vitamin D2) 1,250 mcg (50,000 unit) capsule TAKE 1 CAPSULE BY MOUTH ONE TIME PER WEEK active Not Available Not Available No t Available Imitrex 100 mg tablet take one tablet at onset of headache may repeat in 2 hours. Max 2 tablets daily active Not Available Not Available No t Available nystatin 100,000 unit/gram topical powder APPLY TO AFFECTED AREA TOPICALL Y TWICE A DAY 01/23 completed Not Available Not Available Not Available azelastin e 137 mcg (0.1 %) nasal spray SPRAY 2 SPRAYS BY INTRANAS AL ROUTE TWICE A DAY DIRECTED FOR 30 DAYS 08/16 completed Not Available Not Available Not Available Ativan 0.5 mg tablet TAKE 1 TABLET 1 HOUR PRIOR TO PROCEDUR E AND MAY REPEAT X 1 active Not Available Not Available No t Available albuterol sulfate HFA 90 mcg/actua tion aerosol inhaler TAKE 2 PUFFS BY MOUTH EVERY 4 HOURS NEEDED active Not Available Not Available No t Available carbidopa 25 mg-levodo pa 100 mg tablet TAKE 2 (TWO) TABLETS BY MOUTH 3 TIMES DAILY active Not Available Not Available No t Available ketoconaz ole 2 % topical cream APPLY TOPICALL Y TO THE AFFECTED AREA(S) EVERY DAY. 09/01 completed Not Available Not Available Not Available fluticaso ne propionat e 50 mcg/actua tion nasal spray,kyra pension INSTILL 1 SPRAY IN EACH NOSTRIL EVERY DAY 01/23 completed Not Available Not Available Not Available loratadin e 10 mg tablet TAKE 1 TABLET EVERY MORNING active Not Available Not Available No t Available diazepam 5 mg tablet 1 TABLET 30 MINUTES PRIOR TO TESTING active Not Available Not Available No t Available amoxicill in 500 mg-potass ium clavulana te 125 mg tablet TAKE 1 TABLET BY MOUTH EVERY 12 HOURS FOR 10 DAYS 03/07 completed uses before going to dentist due to knee Not Available Not Available Not Available oxycodone 5 mg tablet 1 tab every 4 hours prn 01/17 completed Not Available Not Available Not Available metaxalon e 800 mg tablet active Not Available Not Available Not Available Klor-Con M20 mEq tablet,ex tended release TAKE 1 TABLET BY MOUTH EVERY DAY active Not Available Not Available No t Available bupropion HCl XL 300 mg 24 hr tablet, extended release Take 1 tablet(s ) every day by oral route. active Not Available Not Available No t Available bupropion HCl XL 150 mg 24 hr tablet, extended release TAKE ONE TABLET BY MOUTH TWICE DAILY 09/20 completed Not Available Not Available Not Available topiramat e 50 mg tablet TAKE 2 TABLETS BY MOUTH TWO TIMES A DAY 07/23 completed ON HOLD- tardive dyskenes ia Not Available Not Available Not Available nitrofura ntoin monohydra te/macroc rystals 100 mg capsule 07/04 completed Not Available Not Available Not Available duloxetin e 30 mg capsule,d elayed release 02/06 completed Not Available Not Available Not Available duloxetin e 60 mg capsule,d elayed release TAKE 1 CAPSULE BY MOUTH ONCE DAILY 2023 active Not Available Not Available Not Avai lable Lyrica 50 mg capsule Take 1 capsule 3 times a day by oral route. active Not Available Not Available No t Available losartan 100 mg-hydroc hlorothia zide 12.5 mg tablet Take 1 tablet every day by oral route. active Not Available Not Available No t Available Aspir-81 1 po qd 2012 active Not Available Not Available Not Avai lable Centrum Silver 1 po qd 2012 active Not Available Not Available Not Avai lable Calcium 600 + D(3) 1 po qd 03/07 completed Not Available Not Available Not Available Fish Oil 1,000 mg capsule Take 1 capsule every day by oral route. 03/07 completed Not Available Not Available Not Available coQ10 (ubiquino l) 1 po qd 09/01 completed Not Available Not Available Not Available Suprep Bowel Prep Kit 17.5 gram-3.13 gram-1.6 gram oral solution DIRECTED 01/23 completed Not Available Not Available Not Available Horizant ER 600 mg tablet,ex tended release Take 1 tablet every day by oral route for 10 days. active prior to start of gabapent in- has not started yet Not Available Not Available Not Available Afluria 1951-9111 45 mcg (15 mcg x 3)/0.5 mL intramusc ular suspensio n 05/03 completed Not Available Not Available Not Available Myrbetriq 25 mg tablet,ex tended release Take 1 tablet every day by oral route. active Not Available Not Available No t Available Eliquis 2.5 mg tablet TAKE 1 TABLET BY MOUTH TWICE A DAY 01/17 completed Not Available Not Available Not Available Osphena 60 mg tablet TAKE 1 TABLET BY MOUTH EVERY DAY active Not Available Not Available No t Available Afluria 5943-7247 (PF) 45 mcg (15 mcg x 3)/0.5 mL intramusc ular syringe TO BE ADMINIST ERED BY PHARMACI ST FOR IMMUNIZA TION active Not Available Not Available No t Available Flucelvax Quad 0566-8821 (PF) 60 mcg (15 mcg x 4)/0.5 mL IM syringe TO BE ADMINIST ERED BY PHARMACI ST FOR IMMUNIZA TION 09/01 completed Not Available Not Available Not Available Fluzone High-Dose 2018- (PF) 180 mcg/0.5 mL intramusc ular syringe PHARMACI ST ADMINIST ERED IMMUNIZA TION ADMINIST ERED AT TIME OF DISPENSI NG 11/09 completed Not Available Not Available Not Available Fluad Quad (65yr up)(PF) 60 mcg (15 mcg x 4)/0.5mL IM syringe PHARMACY ADMINIST ERED 11/09 completed Not Available Not Available Not Available Vitals Date Recorded Body mass index (BMI) Body height Oxygen saturation Oxygen saturation in Arterial blood by Pulse oximetry Heart rate Respiratory rate Body temperature Body weight Systolic blood pressure Diastolic blood pressure Provider Name and Address Organization Details Last Updated DateTime 3 34.8 kg/m2 147.32 cm 97 % 97 % 82 /min 16 /min 97.7 [degF] 78531.7 7 g 117 mm[Hg] 78 mm[Hg] Not Available [facility] 3 06:56:57 Date Recorded Body mass index (BMI) Body height Oxygen saturation Oxygen saturation in Arterial blood by Pulse oximetry Heart rate Body temperature Body weight Systolic blood pressure Diastolic blood pressure Provider Name and Address Organization Details Last Updated DateTime 3 34.3 kg/m2 147.32 cm 93 % 93 % 60 /min 96.8 [degF] 64833.1 5 g 128 mm[Hg] 70 mm[Hg] Not Available [facility] 3 06:56:57 Date Recorded Body height Body mass index (BMI) Body weight Body temperature Heart rate Respiratory rate Oxygen saturation Oxygen saturation in Arterial blood by Pulse oximetry Systolic blood pressure Diastolic blood pressure Provider Name and Address Organization Details Last Updated DateTime 3 147.32 cm 30.3 kg/m2 21649.8 9 g 98 [degF] 74 /min 16 /min 97 % 97 % 110 mm[Hg] 80 mm[Hg] Dayanna Manzano RN [facility] [employer] 3 14:57:01 Date Recorded Body height Body mass index (BMI) Body weight Body temperature Heart rate Oxygen saturation Oxygen saturation in Arterial blood by Pulse oximetry Systolic blood pressure Diastolic blood pressure Provider Name and Address Organization Details Last Updated DateTime 3 147.32 cm 29.3 kg/m2 95137.9 3 g 95.9 [degF] 79 /min 96 % 96 % 128 mm[Hg] 80 mm[Hg] Dayanna Manzano RN [facility] [employer] 3 14:07:08 Date Recorded Body height Body mass index (BMI) Body weight Body temperature Heart rate Respiratory rate Oxygen saturation Oxygen saturation in Arterial blood by Pulse oximetry Systolic blood pressure Diastolic blood pressure Provider Name and Address Organization Details Last Updated DateTime 4 147.32 cm 30.6 kg/m2 61616.9 4 g 97.4 [degF] 67 /min 20 /min 98 % 98 % 160 mm[Hg] 100 mm[Hg] Dayanna Manzano RN [place] [facility] [place] [employer] 4 12:13:02 Social History Question Answer Notes LastModified by Organizat ion Details LastModified Time Tobacco Smoking Status Never Smoker Not Available [employer] 10/02/2022 06:54:52 Do You Have An Advance Directive? No Packet [id number] Information not available 10/02/2022 What Is Your Level Of Alcohol Consumption? None MIGRATION.61538 34427 Information not available 10/02/2022 Are You Blind Or Do You Have Difficulty Seeing? No MIGRATION.12404 87583 Information not available 10/02/2022 Is Blood Transfusion Acceptable In An Emergency? Yes Information not available 11/28/2022 What Is Your Level Of Caffeine Consumption? Heavy MIGRATION.79612 04863 Information not available 10/02/2022 How Much Tobacco Do You Chew? None MIGRATION.30236 33749 Information not available 10/02/2022 What Is Your Code Status? Full Code [facility] Information not available 11/28/2022 In The 14 Days Before Symptom Onset, Have You Had Close Contact With A Laboratory-confi rmed COVID-19 While That Case Was Ill? No MIGRATION.10393 [id number] Information not available 10/02/2022 In The 14 Days Before Symptom Onset, Have You Had Close Contact With A Person Who Is Under Investigation For COVID-19 While That Person Was Ill? No MIGRATION.81649 57195 Information not available 10/02/2022 Are You Deaf Or Do You Have Serious Difficulty Hearing? No MIGRATION.12676 05611 Information not available 10/02/2022 What Type Of Diet Are You Following? REGULAR MIGRATION.00487 64876 Information not available 10/02/2022 Which Illicit Or Recreational Drugs Have You Used? None MIGRATION.63331 27637 Information not available 10/02/2022 Do You Or Have You Ever Used E-cigarettes Or Vape? Never Used Electronic Cigarettes MIGRATION.86376 98895 Information not available 10/02/2022 What Is Your Occupation? Retired MIGRATION.31535 57997 Information not available 10/02/2022 Have There Been Any Changes To Your Family Or Social Situation? No MIGRATION.39775 25023 Information not available 10/02/2022 Do You Use Insect Repellent Routinely? No MIGRATION.85862 08945 Information not available 10/02/2022 Where Do You Live? [facility] MIGRATION.52662 17241 Information not available 10/02/2022 Do You Have A Medical Power Of Brusher And Shearer? No MIGRATION.27706 16533 Information not available 10/02/2022 What Was The Date Of Your Most Recent Tobacco Screening? 01/23/2021 MIGRATION.56869 62573 Information not available 10/02/2022 Do You Have Any Pets? Yes MIGRATION.18300 62398 Information not available 10/02/2022 What Is Your Relationship Status? MIGRATION.34726 43357 Information not available 10/02/2022 Do You Use Your Seat Belt Or Car Seat Routinely? Yes MIGRATION.58603 80018 Information not available 10/02/2022 Do You Have Smoke And Carbon Monoxide Detectors In Your Home? Yes MIGRATION.54964 81413 Information not available 10/02/2022 Do You Or Have You Ever Used Smokeless Tobacco? Never Used Smokeless Tobacco MIGRATION.50572 53386 Information not available 10/02/2022 Are There Any Smokers In Your House? No Information not available 11/28/2022 How Much Tobacco Do You Smoke? No MIGRATION.63048 70994 Information not available 10/02/2022 Do You Participate In Social Media? Yes MIGRATION.19301 59729 Information not available 10/02/2022 Do You Feel Stressed (tense, Restless, Nervous, Or Anxious, Or Unable To Sleep At Night)? [id number] MIGRATION.44269 52458 Information not available 10/02/2022 Do You Use Sunscreen Routinely? No MIGRATION.07900 09030 Information not available 10/02/2022 Have You Recently Traveled Abroad? No MIGRATION.25318 75655 Information not available 10/02/2022 Sex: Female Functional Status Question Answer Note LastModified by Organizat ion Details LastModified Time Do you have difficulty walking or climbing stairs? Yes MIGRATION.10538000 26 Information not available 10/02/2022 Do you have transportation difficulties? No MIGRATION.68778604 26 Information not available 10/02/2022 Are you able to walk? NODEP Information not available 11/28/2022 Do you have difficulty doing errands alone? Yes Information not available 11/28/2022 Are you able to care for yourself? Yes MIGRATION.[id number] 26 Information not available 10/02/2022 Do you have difficulty dressing or bathing? No MIGRATION.23553396 26 Information not available 10/02/2022 What is your exercise level? None MIGRATION.[id number] 26 Information not available 10/02/2022 Mental Status Question Answer Note LastModified by Organizat ion Details LastModified Time Do you have difficulty concentrating, remembering or making decisions? Yes MIGRATION.[id number] 6 Information not available 10/02/2022 Family History Relationship Description Onset Age of this Age Resolved Age Notes LastModified by Organization Details LastModified Time Mother Family history of breast cancer gene BRCA mutation MIGRATION.[id number] Not available 10/02/2022 06:55:01 Paternal Grandfather Malignant tumor of colon MIGRATION.[id number] Not available 10/02/2022 06:55:01 Paternal Grandmother Malignant tumor of colon MIGRATION.157 [id number] Not available 10/02/2022 06:55:01 Medical History Condition Response HYPERTHYROIDISM Y ANXIETY DISORDER Y GERD/NAUSEA Y SLEEP APNEA Y DEPRESSION (INCLUDING POST ) Y MIGRAINES Y HYPERTENSION Y Gynecological History Statement/Question Response If Post Menopausal, Age at Menopause 49 Date of Last Colonoscopy 03/04/2021 Most Recent Mammogram 02/13/2023 Most Recent Bone Density 02/13/2023 Obstetrics History GPAL:G 2 P 0 0 0 0 Immunizations Vaccine Type Date Status Note Provider Nam e and Address Organization Details Recorded Time Tdap 3 completed Not Available [facility] 08/27/2023 07:03:00 RSV, recombinant, protein subunit RSVpreF, adjuvant reconstituted, 0.5 mL, PF 3 completed Not Available [facility] 08/27/2023 07:03:00 SARS-COV-2 (COVID-19) vaccine, UNSPECIFIED 1 completed Not Available [facility] 08/27/2023 07:03:00 Influenza, high-dose, quadrivalent, PF 2 completed Not Available [facility] 08/27/2023 07:03:00 Influenza, high-dose, quadrivalent, PF 1 completed Not Available [facility] 08/27/2023 07:03:00 COVID-19 Non-US Vaccine, Product Unknown 1 completed Not Available [facility] 08/27/2023 07:03:00 SARS-COV-2 (COVID-19) vaccine, UNSPECIFIED 1 completed Not Available [facility] 08/27/2023 07:03:00 pneumococcal polysaccharide PPV23 0 completed Not Available [facility] 08/27/2023 07:03:00 Influenza, high-dose, trivalent, PF 8 completed Not Available [facility] 08/27/2023 07:03:00 Pneumococcal conjugate PCV 13 5 completed Not Available [facility] 08/27/2023 07:03:00 Influenza, split virus, trivalent, preservative 3 completed Not Available [facility] 08/27/2023 07:03:00 Tdap 2 completed Not Available [facility] 08/27/2023 07:03:00 Influenza, split virus, quadrivalent, PF 6 completed Not Available [facility] 08/27/2023 07:03:00 Pneumococcal conjugate PCV 13 5 completed Not Available [facility] 08/27/2023 07:03:00 Influenza, split virus, trivalent, preservative 4 completed Not Available [facility] 08/27/2023 07:03:00 Influenza, split virus, quadrivalent, preservative 5 completed Not Available [facility] 08/27/2023 07:03:00 zoster live 4 completed Not Available [facility] 08/27/2023 07:03:00 Past Encounters Encounter ID Performer Location Encounter Start Date Encounter Closed Date Diagnosis/Indication Diagnosis SNOMED-CT Code Diagnosis ICD10 Code Diagnosis Note [id number] [facility] [place] [address] [place] [address] 11/09/2020 00:00:00 11/10/2020 18:43:13 [id number] _ATHENA_M IGRATION_ DEFAULT_1 _1 , 01/03/2021 00:00:00 01/03/2021 15:41:39 [id number] [facility] [place] [address] [place] [address] 01/23/2021 00:00:00 01/23/2021 19:30:45 [id number] [facility] [place] [address] [place] [address] 03/05/2021 00:00:00 03/05/2021 11:47:09 [id number] [facility] [place] [address] [place] [address] 05/11/2021 00:00:00 05/11/2021 17:50:50 [id number] [facility] [place] [address] [place] [address] 06/19/2021 00:00:00 06/19/2021 19:33:00 [id number] [facility] [place] [address] [place] [address] 06/21/2021 00:00:00 06/21/2021 16:57:17 [id number] [facility] [place] [address] [place] [address] 07/23/2021 00:00:00 07/23/2021 13:47:23 [id number] [facility] [place] [address] [place] [address] 08/15/2021 00:00:00 08/15/2021 16:27:16 [id number] [facility] [place] [address] [place] [address] 09/07/2021 00:00:00 09/07/2021 12:57:10 [id number] [facility] [place] [address] [place] [address] 10/10/2021 00:00:00 10/10/2021 12:23:16 [id number] [facility] [place] [address] [place] [address] 11/07/2021 00:00:00 11/07/2021 16:01:42 [id number] [facility] [place] [address] [facility] [place] [address] 11/14/2021 00:00:00 11/14/2021 15:15:31 [id number] [facility] [place] [address] [facility] [place] [address] 01/17/2022 00:00:00 01/18/2022 17:48:51 [id number] [facility] [place] [address] [place] [address] 02/19/2022 00:00:00 02/19/2022 16:22:11 [id number] [facility] [place] [address] [place] [address] 04/02/2022 00:00:00 04/02/2022 15:56:46 [id number] [facility] [place] [address] [facility] [place] [address] 06/06/2022 00:00:00 06/06/2022 17:39:31 [id number] [facility] [place] [address] [facility] [place] [address] 08/16/2022 00:00:00 08/16/2022 12:19:29 [id number] [facility] [place] [address] [facility] [place] [address] 09/20/2022 00:00:00 09/20/2022 11:04:09 [id number] [facility] [place] [address] [place] [address] 10/01/2022 00:00:00 10/01/2022 15:54:32 [id number] Dayanna Hogan NP [address] [address] 11/28/2022 14:39:09 11/28/2022 15:53:35 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 Foreman and will be seeing Dr. Tyler at [facility] for movement disorder clinic .No change in current meds. [id number] Dayanna Hogan NP [address] [address] 01/17/2023 13:56:27 01/17/2023 16:20:21 Asthma 867027333 J45.909 Albuterol HFA Hypothyroidism 32772171 E03.9 Levothyrox ine 150 mcg po daily. Hyperlipidemia 35940223 E78.5 low fat diet. Gastroesop hageal reflux disease 956126105 K21.9 stable Restless legs 81094813 G 25.81 ropinirole 0.25 mg po nightly. Depressive disorder 3548 9007 F32.9 Bupropion HCL SR 150 mg po bid.duloxe naren 60 mg po daily. Iron defic iency anemia 30868423 D50.9 ferrous sulfate 325 mg po daily. Allergic rhinitis 320291 04 J30.9 montelukas t 10 mgLoratadi ne 10 mg. Screening for malignant neoplasm of breast 856899371 Z12.39 mammogram ordered 01/17/23 Postmenopausal state 764 53110 Z78.0 Dexa ordered 01/17/23 [id number] Dayanna Hogan NP [address] [address] 08/15/2023 11:47:05 08/15/2023 16:16:52 Asthma 037891977 J45.909 Albuterol HFA Hypothyroidism 20358989 E03.9 Levothyrox ine 125 mcg po daily to levothyrox ine 100 mcg po daily.TSh not existent. Reduced levothyrox ine. new dose sent. Labs in 8 weeks.Chol esterol controlled . 07/14/23 new orders due before refill. Currently on levothyrox ine 100 mcg po daily.07/04 11/24 TSh low. Reduce to levothyrox ine 88 mcg po daily. Hyperlipidemia 50161725 E78.5 low fat diet. Essential hypertension 92482666 I10 monitor prn Gastroesop hageal reflux disease 987620004 K21.9 stable Restless legs 26930363 G 25.81 ropinirole 0.25 mg po nightly. Depressive disorder 3548 9007 F32.9 Bupropion HCL SR 150 mg po bid. Try for bupropion HCL XL 300 mg po daily for cost savings.du loxetine 60 mg po daily. Iron defic iency anemia 01141943 D50.9 ferrous sulfate 325 mg po daily. Allergic rhinitis 086831 04 J30.9 montelukas t 10 mgLoratadi ne 10 mg. 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 Hypokalemia 89989094 E87 .6 Health Concerns Section Related Observation LastModified by Organization Detai ls LastModified Time None Recorded Concern Status LastModified by Organization Details LastModified Time None Recorded Advance Directives Directive N: Packet Payers Encounter Date Sequence Insurance Name Policy Number Policy Luna Covered Member ID Luna Member ID Guarantor Name 11/28/2022 1 [place] Alisa Chamorro Pipes [id number] Alisa Chamorro Pipes 11/28/2022 2 [facility] (MEDICARE SUPPLEMENT) Alisa Chamorro Pipes [id number] Alisa Chamorro Pipes 01/17/2023 1 [place] Alisa Chamorro Pipes [id number] Alisa Chamorro Pipes 01/17/2023 2 [facility] (MEDICARE SUPPLEMENT) Alisa M Pipes [id number] Alisa Chamorro Pipes 08/15/2023 1 [place] Alisa Chamorro Pipes [id number] Alisa Chamorro Pipes 08/15/2023 2 [facility] (MEDICARE SUPPLEMENT) Alisa Chamorro Pipes [id number] Alisa Chamorro Pipes Notes Date Note Type Note Provider Name and Address Organization Details Recorded Time 11/28/2022 text/html Here for [facility] Follow up. States she was having left facial spasms similar to 2019 episode that was suggested to be tardive dyskinesia at that time. Symptoms had subsided and just returned. Unknown reason why. They lasted 8 hours. Was given benadryl, cogentin and improved. Sent home on meds for prn use.Patient isn't on any antipsychotic meds. Is on carbidopa/levodopa- generally takes 1-2 times daily, not 3. This has been questioned in the past, but patient states it's the only thing to give her relief from legs being restless. [facility] notes not received previous were brought to office today and scanned into [employer]. Will be seeing sleep specialist Dr. Kumari December 23, 2022. Was seeing jennie chatterjee nail artist before but Dr. Foreman suggested a MD may give more options.Pt has RLS.Will be seeing movement specialist at [facility] Dr Tyler January 2023. Dayanna Hogan NP [address], [place], [address], [employer] 11/28/2022 15:52:38 01/17/2023 text/html Here for check u p. Asthma- sttableThyroid-lipid -htn- Home bp doing well.Gerd- stableRLS- still feeling daria all the time as well as whole body.Depression- Stable on cymbalta and bupropion. Clonazepam added (to help claustrophobia with CPAP), Oxcarbazepine (for trigeminal neuralgia), and upped dose of carbidopa/levodopa. Per neurology. Sending to sleep disorder clinc, this will be the 4th one. Has mouth movement involuntary. Seeing movement disorder.Was seeing Dr. Foreman. Still wearing ortho boot. Can have full weight bearing on right lower ext. Walking boot when out. On walker. Dayanna Hogan NP [address], [place], [address], [employer] 01/17/2023 16:06:43 08/15/2023 text/html Here for check u p. Asthma- stableThyroid- no complaintslipid- trying to eat well.htn- Home bp doing well.Gerd- stableRLS- still feeling daria all the time as well as whole body.Depression- Stable on cymbalta and bupropion. Clonazepam added (to help claustrophobia with CPAP), Oxcarbazepine (for trigeminal neuralgia), and upped dose of carbidopa/levodopa. Per neurology.Was seeing Dr. Foreman. Dayanna Hogan NP [address] [address], [place], [address], [facility] 08/15/2023 17:01:26 OBGyn Episode No OBEpisode recorded.
== END 2024-08-23 07:27 | disposition home or self-care (01) ==
PROVIDERS: PCP Nurse Practitioner Family; Visit Provider Nurse Practitioner Family
DX: E03.9 Hypothyroidism, unspecified (principal); Z13.29 Encounter for screening for other suspected endocrine disorder
CPT/HCPCS: 36415; 84439; 84443

== ENCOUNTER 2024-09-14 14:00 | Outpatient (CLI) | payer MEDICARE, SELFPAY ==
--- NOTE | ~2024-09-14 | CT_ITS ---
EXAMINATION: CT ankle RT wo con DATE: 09/14/2024 14:38 INDICATION: Right ankle fracture nonunion. TECHNIQUE: Computed tomography (CT) of the right ankle was performed without intravenous contrast. Au tomated exposure control and iterative reconstruction technique were employed. The dose-length produc t was 522.90 mGy-cm. COMPARISON: Right ankle radiographs 09/20/2021 FINDINGS: There are changes of fusion procedure involving calcaneus, talus, and distal tibia with corina and multiple screws. There is no bridging bone at subtalar joint or ankle joint. There is greater th an 2 mm lucency around the corina in calcaneus, consistent with loosening. There is bridging bone betwee n the tibial and fibular diaphyses. There is screw fixation of distal fibula. There is a tibiofibular syndesmotic screw. There is moderate midfoot osteoarthritis. There are enthesophytes at the posterio r and plantar aspects of calcaneus. IMPRESSION: 1. Fusion procedure involving calcaneus, talus, and distal tibia with lucency around the corina in calca neus, consistent with loosening. No bridging bone at the subtalar joint or ankle joint. Reviewed, dictated and finalized at location A. OFFICE MANAGER IMPRESSION: 1. Fusion procedure involving calcaneus, talus, and distal tibia with lucency a round the corina in calcaneus, consistent with loosening. No bridging bone at the subtalar joint or ankle joint.
--- OUTSIDE RECORDS SUMMARY | 2024-09-14 14:56 | XMS_ITS | Patient Health Summary ---
Author Organization [facility] Address [address] [place] [address] Care Team Providers Care Faucet Polisher Name Role Phone Dayanna Aj Adam LUCIA-PUBLIC RELATIONS SPECIALIST Primary Care Provider Note from [facility],non-owned Affiliates and Associated Physician Practices is amultiple site organization consisting of ambulatory clinics and hospital sitesin [place], [place], [place] and [place]. This disclosure is being madepursuant to the Care Everywhere program and may not contain all information available regarding this patient. Last updated 18.[facility] Allergies * Lisinopril(Cough) * Lorazepam(Psychiatric) -Medium Criticality * Pregabalin(Swelling) -High Criticality * Skin Adhesives(Rash) -Medium Criticality * Wound Dressing Adhesive(Swelling),Inactive Medications * Be aware that medications may not be up to date on this document. Alwaysverify current medications with the patient. * ferrous sulfate 325 (65 FE) MG tablet Take 1 (one) tablet by mouth once daily * loratadine (Claritin) 10 MG tablet Take 1 (one) tablet by mouth once daily * omeprazole (PriLOSEC) 40 MG capsule Take 1 (one) capsule by mouth daily before breakfast * albuterol HFA (ProAir HFA) 108 (90 Base) MCG/ACT inhaler Inhale 2 (two) puffs by mouth every 6 hours as needed * Saxon-3 Fatty Acids (fish oil) 1000 MG capsule * SUPER B COMPLEX/C PO Take 1 tablet by mouth 2 times daily * Multiple Vitamins-Minerals (HAIR SKIN NAILS PO) * magnesium 250 MG tablet Take 1 (one) tablet by mouth 2 times daily * vitamin D3 (Cholecalciferol) 25 MCG (1000 UNITS) tablet Take 2 (two) tablets by mouth once daily * Probiotic Product (probiotic daily) capsule Take by mouth every 7 days 50 billion * DULoxetine (Cymbalta) 60 MG capsule(Started 11/17/2021) Take 1 (one) capsule by mouth once daily * montelukast (Singulair) 10 MG tablet(Started 10/31/2021) Take 1 (one) tablet by mouth once daily * HYDROcodone-acetaminophen ([place]) 7.5-325 MG tablet Take 1 (one) tablet by mouth every 6 hours as needed for Pain * Klor-Con M20 20 MEQ tablet(Started 02/05/2023) Take 1 (one) tablet by mouth once daily * nystatin (Mycostatin) 086546 UNIT/GM cream(Started 04/22/2023) * amoxicillin (Amoxil) 500 MG capsule(Started 08/06/2023) as needed * benztropine (Cogentin) 1 MG tablet Take 1 (one) tablet by mouth once daily * vitamin D, ergocalciferol, (Drisdol) 1.25 MG (31573 UT) capsule(Started 10/09/2023) * clonazePAM (KlonoPIN) 0.5 MG tablet(Started 03/10/2024) Take 1 (one) tablet by mouth at bedtime 1 refill by 09/06/2024 * lisinopril (Prinivil; Zestril) 10 MG tablet(Started 03/18/2024) Take 1 (one) tablet by mouth once daily * OXcarbazepine (Trileptal) 150 MG tablet(Started 03/31/2024) TAKE 1 (ONE) TABLET BY MOUTH 2 TIMES DAILY 4 refills by 03/31/2025 * acetaminophen (Tylenol) 325 MG tablet(Started 05/10/2024) Take 2 (two) tablets by mouth every 6 hours as needed for Fever or Pain Maximum allowable Acetaminophen amount = 4 Grams (4000 mg) / 24 hours. * ibuprofen (Motrin) 600 MG tablet(Started 05/10/2024) Take 1 (one) tablet by mouth every 6 hours as needed for Pain * oxyCODONE, immediate release, (Roxicodone) 5 MG tablet(Started 05/10/2024) Take 1 (one) tablet by mouth every 6 hours as needed for Pain * docusate sodium (Colace) 100 MG capsule(Started 05/10/2024) Take 1 (one) capsule by mouth once daily * carbidopa-levodopa (Sinemet) 25-100 MG tablet(Started 05/24/2024) Take 2 (two) tablets by mouth 3 times daily 3 refills by 05/24/2025 * carbidopa-levodopa CR (Sinemet CR) 50-200 MG tablet(Started 05/31/2024) Take 1 (one) tablet by mouth at bedtime 3 refills by 05/31/2025 * losartan (Cozaar) 25 MG tablet(Started 06/16/2024) Take 1 (one) tablet by mouth once daily 3 refills by 06/16/2025 * levothyroxine (Synthroid) 100 MCG tablet(Started 05/27/2024) Take 1 (one) tablet by mouth once daily * buPROPion XL 24hr (Wellbutrin-XL) 300 MG tablet(Started 07/07/2024) Take 1 (one) tablet by mouth every morning * fluticasone propionate (Flonase) 50 MCG/ACT nasal spray(Started 07/22/2024) Carmen 2 (two) sprays into each nostril once daily 4 refills by 07/22/2025 * fexofenadine (Briana) 180 MG tablet(Started 07/22/2024) Take 1 (one) tablet by mouth once daily 3 refills by 07/22/2025 * gabapentin (Neurontin) 100 MG capsule(Started 07/22/2024) Take 3 (three) capsules by mouth at bedtime 3 refills by 07/22/2025 Active Problems Problem Noted Date Diagnosed Date 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 Retained orthopedic hardware 09/08/2024 Candidiasis of skin 04/22/2023 08/11/2023 S/P placement of nerve stimulator 04/11/2023 Otalgia 04/10/2023 04/10/2023 Abnormal mammography 02/16/2023 04/10/2023 Iron deficiency anemia 01/17/2023 Abnormal cervical Papanicolaou smear 01/16/2023 01/16/2023 Anxiety 01/16/2023 01/16/2023 Chronic pain 01/16/2023 01/16/2023 Cutaneous hypersensitivity 01/16/202301/16 Edema 01/16/2023 01/16/2023 Excessive cerumen in ear canal 01/16/2023 0 01/16/2023 Folliculitis 01/16/2023 01/16/2023 Greater trochanteric pain syndrome 01/16/2023 01/16/2023 Hyperlipidemia 01/16/2023 01/16/2023 Lumbar radiculopathy 01/16/2023 01/16/2023 Peripheral nerve disease 01/16/2023 023 Posterior rhinorrhea 01/16/2023 01/16/2023 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 01/16/2023 Seasonal allergies 01/16/2023 01/16/2023 Sinus headache 01/16/2023 01/16/2023 Urinary urgency 01/16/2023 01/16/2023 Vaginal dryness 01/16/2023 01/16/2023 Hemifacial spasm 11/28/2022 01/16/2023 Closed fracture of right ankle, sequela 10/15/19 Cardiomegaly 08/22/2022 01/16/2023 Arthralgia of right ankle 08/16/20222022 Congestion of nasal sinus 02/19/20222022 Impaired mobility and ADLs 09/25/2021 Hypersomnia 07/23/2021 01/16/2023 COSTA (obstructive sleep apnea) 07/22/2021 Periodic limb movement disorder (PLMD) 01/16/2023 Fatigue 01/23/2021 01/16/2023 Allergic rhinitis 01/07/2019 01/16/2023 Osteopenia 12/10/2017 01/16/2023 Asthma 11/18/2017 01/16/2023 Hypothyroidism 05/04/2015 Migraine without aura 05/04/2015 Obesity, Class I, BMI 30-34.9 05/04/2015 Essential hypertension 05/04/2015 Persistent depressive disorder 03/10/2006 Dyspepsia and other specifie d disorders of function of stomach 06/22/2004 Syndesmotic disruption of right ankle Immunizations * INFLUENZA VACCINE, TRIV. (AFLURIA, FLUZONE TRIVALENT; 6MO+) (IIV3)(Given 07/04/2014, 05/10/2013) * COVID PFIZER 12+YR 30MCG/0.3mL(Given 05/02/2023) * COVID PFIZER BIVALENT 12Y+ 30mcg/0.3ML(Given 04/16/2022) * Covid Pfizer primary monovalent 12+ yr 0.3mL Purple cap(Given 05/03/2021, 10/10/2020, 09/19/2020) * FLU VACCINE TRI IIV3 SPLIT IM (FLUVIRIN)(Given 05/26/2013, 05/15/2013) * INFLUENZA D9L9-19, HISTORIC VACCINE(Given 05/20/2022, 05/20/2022, 05/10/2021, 05/10/2021) * INFLUENZA VACCINE, ADJUVANTED, QUADR. (FLUAD QUADRIVALENT; 65Y+) (AIIV4)(Given 05/02/2023, 05/05/2020) * INFLUENZA VACCINE, CELL CULTURE, QUADR. (FLUCELVAX QUADRIVALENT; 6MO+) (CCIIV4)(Given 04/23/2017) * INFLUENZA VACCINE, HIGH-DOSE, QUADR. (FLUZONE HIGH-DOSE QUADRIVALENT; 65Y+), 0.7 ML (HD-IIV4)(Given 04/17/2022, 05/09/2021, 05/22/2018) * INFLUENZA VACCINE, QUADR. (AFLURIA, FLUZONE QUADRIVALENT; 6MO+) (IIV4)(Given 05/10/2015) * INFLUENZA VACCINE, QUADR. (FLUZONE; FLULAVAL; FLUARIX; AFLURIA QUADRIVALENT; 6MO+), 0.5 ML (IIV4)(Given 07/08/2016) * PNEUMOCOCCAL PPV VACCINE(Given 07/21/2020) * Pneumococcal Pcv13 Conj(Given 11/11/2014, 11/04/2014) * RSV AREXVY 60YR+ 0.5ML(Given 07/01/2023) * TDAP, HISTORIC VACCINE(Given 07/18/2023, 10/02/2011) * ZOSTER VACCINE, LIVE(Given 11/15/2013) * Zoster Hzv Vacc Recombinant Inj Im(Given 07/01/2023, 05/02/2023) Social History Tobacco Use Types Packs/Day Years Used Date Smoking Tobacco: Never Smokeless Tobacco: Never Tobacco Cessation:Counseling Given: Not Answered Alcohol Use Standard Drinks/Week Comments Not Currently 0 (1 standard drink = 0.6 oz pur e alcohol) none since 2020 AUDIT-C Answer Date Recorded Q1: How often do you have a drink containing alcohol? Never 05/10/2024 Q2: How many drinks containi ng alcohol do you have on a typical day when you are drinking? Patient does not drink Q3: How often do you have si x or more drinks on one occasion? Never 05/10/2024 Education Answer Date Recorded What is the highest level of school you have completed or the highest degree you have received? Bachelor's degree (e.g., BA, AB, BS) 04/10/2023 Sex and Gender Information Value Date Recorded Sex Assigned at Not on file Gender Identity Not on file Sexual Orientation Not on file Last Filed Vital Signs Vital Sign Reading Time Taken Comments Blood Pressure 127/73 07/22/2024 10:37 AM FLOOD CONTROL ENGINEER Pulse 77 07/22/2024 10:37 AM FLOOD CONTROL ENGINEER Temperature 36.4 C (97.6 F) 05/10/2024 6:40 PM CDT Respiratory Rate 14 05/10/2024 7:00 PM CDT Oxygen Saturation 93% 05/10/2024 7:00 PM CDT Inhaled Oxygen Concentration - - Weight 73.5 kg (162 lb) 07/22/2024 10:37 AM FLOOD CONTROL ENGINEER Height 144.8 cm (4' 9 ) 07/22/2024 10:37 AM FLOOD CONTROL ENGINEER Body Mass Index 35.06 07/22/2024 10:37 AM FLOOD CONTROL ENGINEER Medical Devices Implanted Type Area Lunchroom Mother Device Identifier Shelf Expiration Date Model / Serial / Lot Mri Unsafe Moreira Neuro Stimulator Neuro Stimulator [id number] / / Description:per manual MRI u nsafe 3.5 Mm Lateral Distal Fibula Plate Implanted:Qt y: 1 on 09/22/2021 by Gonzales Rey DO at [facility] Plate Right: Ankle [employer] [id number] / / Screw 3.5mm 14mm Slf-Tap Cortx Evos Strl Implanted:Qt y: 4 on 09/22/2021 by Gonzales Rey, DO at [facility] Screw Right: Ankle [employer] [id number] / / Screw 3.5mm 48mm Slf-Tap Cortx Evos Strl Implanted:Qt y: 1 on 09/22/2021 by Gonzales Rey, DO at [facility] Screw Right: Ankle [employer] [id number] / / Screw 3.5mm 55mm Slf-Tap Cortx Evos Strl Implanted:Qt y: 1 on 09/22/2021 by Gonzales Rey, DO at [facility] Screw Right: Ankle [employer] [id number] / / Fully Threaded 4.7 Mm Osteopenia Screw Implanted:Qt y: 1 on 09/22/2021 by Gonzales Rey, DO at [facility] Screw Right: Ankle [employer] [id number] / / 3.5 Mm Locking Screw Implanted:Qt y: 1 on 09/22/2021 by Gonzales Rey, DO at [facility] Screw Right: Ankle [employer]rreas [employer] [id number] / / Kit Bngf 3cc Aug Inj Implanted:Qt y: 1 on 10/14/2022 by Amy Mondragon MD at [facility] Right: Ankle Booster.[employer] Inc 05/03/2023 [id number] / / [id number] Kit Bngf 3cc Aug Inj Implanted:Qt y: 1 on 10/14/2022 by Amy Mondragon MD at [facility] Right: Ankle [employer] Inc 05/03/2023 [id number] / / [id number] Graft Bone Canc 4-9.5mm 15cc Frzdr Chp Implanted:Qt y: 1 on 10/14/2022 by Amy Mondragon MD at [facility] Right: Ankle [employer] 08/19/2026 [id number] / / [id number] Right Small Nail Implanted:Qt y: 1 on 10/14/2022 by Amy Mondragon MD at [facility] Right: Ankle [employer] 05/20/2030 [id number] / / [id number] Screw 5mm 25mm Valor Ti Hindfoot Fsn Sys Implanted:Qt y: 1 on 10/14/2022 by Amy Mondragon MD at [facility] Right: Ankle [employer] 07/16/2030 [id number] / / [id number] Screw 5mm 30mm Valor Ti Hindfoot Fsn Sys Implanted:Qt y: 1 on 10/14/2022 by Amy Mondragon MD at [facility] Right: Ankle [employer] Inc 08/23/2030 [id number] / / [id number] 5x40mm Screw Implanted:Qt y: 1 on 10/14/2022 by Amy Mondragon MD at [facility] Right: Ankle [employer] [id number] 07/16/2030 [id number] / / [id number] 5x70mm Screw Implanted:Qt y: 1 on 10/14/2022 by Amy Mondragon MD at [facility] Right: Ankle [employer] [id number] 01/16/2030 [id number] / / [id number] Screw 3.5mm 18mm T10 Ft Strdr Nonster Implanted:Qt y: 1 on 10/14/2022 by Amy Mondragon MD at [facility] Right: Ankle [employer] [id number] / / Screw 3.5mm 50mm T10 Ft Strdr Nonster Implanted:Qt y: 1 on 10/14/2022 by Amy Mondragon MD at [facility] Right: Ankle [employer] [id number] / / Graft Bone Ignite Dbm 20ml Pwr Mx Inj - [id number] Implanted:Qt y: 1 on 10/14/2022 by Amy Mondragon MD at [facility] Right: Ankle Forter 03/18/2026 [id number] / [id number] / Lead Nrstm Inspr 3 Eltrd Cuf Tnl Pelon - [id number] Implanted:Qt y: 1 on 05/10/2024 by Sriram Simon MD at [facility] Right: Neck [employer] Inc [id number] 06/29/2026 [id number] / [id number] / Lead Ns Resp - [id number] Implanted:Qt y: 1 on 05/10/2024 by Sriram Simon MD at [facility] Right: Chest [employer] Inc [id number] 09/15/2026 [id number] / [id number] / Gntr Nrstm - [id number] Implanted:Qt y: 1 on 05/10/2024 by Sriram Simon MD at [facility] Right: Chest [employer] Inc [id number] 07/14/2026 3028 / [id number] / Explanted Type Area Lunchroom Mother Device Identifier Shelf Expiration Date Model / Serial / Lot Fully Threaded 4.7 Mm Osteopenia Screw Explanted:Qty: 1 on 09/22/2021 by Gonzales Rey DO at [facility] Screw Right: Ankle [employer] [id number] / / Wire K 1.6mm 150mm Troc Pnt Ss Fx Strl Explanted:Qty: 2 on 09/22/2021 by Gonzales Rey DO at [facility] Wire Right: Ankle [employer]re[employer]hew Inc [id number] / / Procedures * XR CALCANEUS RIGHT 1VW(Performed 09/08/2024) Performed for Primary osteoarthritis of right ankle * XR ANKLE RIGHT 3VW OR MORE(Performed 09/08/2024) Performed for Primary osteoarthritis of right ankle * XR CHEST 2VW(Performed 05/10/2024) Performed for COSTA (obstructive sleep apnea) * XR NECK SOFT TISSUE(Performed 05/10/2024) Performed for COSTA (obstructive sleep apnea) * ENDOTRACHEAL TUBE NOTE(Performed 05/10/2024) * MA OPEN IMPLTJ HPGLSL NRV NSTIM RA PG&RESPIR SENSOR(Performed 05/10/2024) Performed for Obstructive sleep apnea, S/P placement of nerve stimulator * MA DISE DYN EVAL SLEEP DISORDERED BREATHING FLX DX(Performed 03/17/2024) Performed for Obstructive sleep apnea * CBC W/O DIFFERENTIAL(Performed 03/17/2024) Performed for COSTA (obstructive sleep apnea) * BASIC METABOLIC PANEL (CALCIUM TOTAL)(Performed 03/17/2024) Performed for COSTA (obstructive sleep apnea) * MA LARYNGOSCOPY,FLEX FIBER,DIAGNOSTIC(Performed 01/06/2024) Performed for COSTA (obstructive sleep apnea) * XR ANKLE RIGHT 3VW OR MORE(Performed 10/08/2023) Performed for Orthopedic aftercare * MA POLYSOM 6/>YRS CPAP 4/> PARM(Performed 06/02/2023) Performed for COSTA (obstructive sleep apnea), Restless legs syndrome (RLS), Excessive daytime sleepiness, Chronic fatigue, Intolerance of continuous positive airway pressure (CPAP) ventilation * COMPLETE PFT W/WO BRONCHODILATOR(Performed 05/09/2023) Performed for Excessive daytime sleepiness, Chronic fatigue, Essential hypertension, Wheezing * XR ANKLE RIGHT 3VW OR MORE(Performed 02/05/2023) Performed for Orthopedic aftercare * XR ANKLE RIGHT 3VW OR MORE(Performed 12/25/2022) Performed for Status post surgery * XR ANKLE RIGHT 3VW OR MORE(Performed 11/27/2022) Performed for Orthopedic aftercare * XR ANKLE RIGHT 3VW OR MORE(Performed 10/30/2022) Performed for Primary osteoarthritis of right ankle * BASIC METABOLIC PANEL (CALCIUM TOTAL)(Performed 10/20/2022) * CALCIUM IONIZED PANEL(Performed 10/20/2022) * MAGNESIUM BLOOD(Performed 10/20/2022) * CBC W AUTO DIFFERENTIAL(Performed 10/20/2022) * IMAGING/RADIOLOGY/XRAY RESULTS ORDER(Performed 10/16/2022) * CARDIAC RHYTHM STRIP ORDER(Performed 10/16/2022) * HGB HCT PANEL(Performed 10/15/2022) Performed for Closed fracture of right ankle, sequela * XR ANKLE RIGHT 3VW OR MORE(Performed 10/14/2022) Performed for Closed fracture of right ankle, sequela * FL DILEEP SURGERY(Performed 10/14/2022) Performed for Pain * ENDOTRACHEAL TUBE NOTE(Performed 10/14/2022) * PERIPHERAL BLOCK(Performed 10/14/2022) * MA FUSION FOOT BONES,SUBTALAR(Performed 10/14/2022) Performed for m19.071 * MA REMOVAL DEEP IMPLANT(Performed 10/14/2022) Performed for m19.071 * HOME CPAP/BIPAP FOR HOSP USE: NOCTURNAL 02(Performed 10/14/2022) * TYPE + SCREEN PANEL(Performed 10/14/2022) * BASIC METABOLIC PANEL (CALCIUM TOTAL)(Performed 10/14/2022) Performed for Closed fracture of right ankle, sequela * CBC W/O DIFFERENTIAL(Performed 10/14/2022) Performed for Closed fracture of right ankle, sequela * XR FOOT RIGHT WT BEARING 3VW(Performed 06/12/2022) Performed for Orthopedic aftercare * XR ANKLE RIGHT 3VW OR MORE(Performed 06/12/2022) Performed for Orthopedic aftercare * XR ANKLE RIGHT 3VW OR MORE(Performed 03/12/2022) Performed for Orthopedic aftercare * XR ANKLE RIGHT 3VW OR MORE(Performed 02/19/2022) Performed for Closed fracture of right ankle with routine healing, subsequent encounter * XR ANKLE RIGHT 3VW OR MORE(Performed 01/22/2022) Performed for Closed fracture of right ankle with routine healing, subsequent encounter * XR ANKLE RIGHT 3VW OR MORE(Performed 12/11/2021) Performed for Closed fracture of right ankle, initial encounter * XR ANKLE RIGHT 3VW OR MORE(Performed 11/13/2021) Performed for Closed fracture of right ankle with routine healing, subsequent encounter * XR ANKLE RIGHT 3VW OR MORE(Performed 10/02/2021) Performed for Closed fracture of right ankle, initial encounter * VITAMIN D 25-HYDROXY(Performed 09/24/2021) * CBC W/O DIFFERENTIAL(Performed 09/24/2021) * BASIC METABOLIC PANEL (CALCIUM TOTAL)(Performed 09/24/2021) * CBC W/O DIFFERENTIAL(Performed 09/23/2021) Performed for Closed fracture of right ankle, initial encounter * BLOOD TYPE VERIFICATION(Performed 09/23/2021) * XR ANKLE RIGHT 3VW OR MORE(Performed 09/22/2021) Performed for Closed fracture of right ankle, initial encounter * GLUCOSE - POINT OF CARE(Performed 09/22/2021) * FL DILEEP SURGERY(Performed 09/22/2021) Performed for Closed fracture of right ankle, initial encounter * PERIPHERAL IV NOTE(Performed 09/22/2021) * ENDOTRACHEAL TUBE NOTE(Performed 09/22/2021) * OPEN REDUCTION INTERNAL FIXATION (ORIF) ANKLE(Performed 09/22/2021) Performed for Type III open fracture of ankle, unspecified laterality, initial encounter * TYPE + SCREEN PANEL(Performed 09/22/2021) * PT-INR SLH(Performed 09/22/2021) * PTT SLH(Performed 09/22/2021) * BASIC METABOLIC PANEL (CALCIUM TOTAL)(Performed 09/22/2021) * CBC W/O DIFFERENTIAL(Performed 09/22/2021) * SARS-COV-2 (COVID-19)+INFLU A+B PCR RAPID(Performed 09/21/2021) * XR ANKLE RIGHT 3VW OR MORE(Performed 09/21/2021) Performed for Closed fracture of right ankle, initial encounter * XR TIBIA FIBULA RIGHT 2VW(Performed 09/21/2021) Performed for Closed fracture of right ankle, initial encounter * PAP THINPREP (WI)(Performed 10/11/2010) Results * XR Calcaneus Right 1Vw (09/08/2024 4:05 PM FLOOD CONTROL ENGINEER) [facility]ative [facility] - 09/08/2024 4:05 PM FLOOD CONTROL ENGINEER For details of this study, please see the providers note. Duncan Sharp DO DIAGNOSTIC IMAGING O RDERAJENNIFER Performing Organization Address [facility] Co de Phone Number SCMPRAD * XR Ankle Right 3Vw or More (09/08/2024 4:04 PM FLOOD CONTROL ENGINEER) Only the most recent of16 resultswithin the time period is included. [facility]ative [facility]/08/[facility] 4:05 PM FLOOD CONTROL ENGINEER For details of this study, please see the providers note. Duncan Sharp DO DIAGNOSTIC IMAGING O RDERABLES Performing Organization Address [facility]/ZIP Co de Phone Number SCMPRAD * XR Chest 2Vw (05/10/2024 6:35 PM CDT) Anatomical Region Laterality Modality Chest Digital Radiogra phy 05/11/2024 3:39 PM CDT Impressions 05/11/2024 3:42 PM CDT IMPRESSION: NECK: Right chest wall neurostimulator device with lead extending cranially and terminating in the right upper neck. Multilevel degenerative changes are seen in the cervical spine. CHEST: Partially imaged neurostimulator leads project over the thoracic spine. The cardiomediastinal silhouette is within normal limits for technique. The aorta is atherosclerotic. Low lung volumes with bronchovascular crowding. No focal consolidation, pleural effusion, or pneumothorax. Chronic deformity of the left proximal humerus. > Interpreting Provider: Mane Henry MD on 05/11/2024 3:42 PM Narrative 05/11/2024 3:42 PM CDT PROCEDURE: XR CHEST 2VW, XR NECK SOFT TISSUE DATE/TIME OF EXAM: 05/10/2024 6:36 PM CLINICAL INFORMATION: None relevant/not provided if blank. Indication: G47.33: COSTA (obstructive sleep apnea) Additional History: COMPARISON: None. Procedure Note Mane Henry MD - 05/11/2024 PROCEDURE: XR CHEST 2VW, XR NECK SOFT TISSUE DATE/TIME OF EXAM: 05/10/2024 6:36 PM CLINICAL INFORMATION: None relevant/not provided if blank. Indication: G47.33: COSTA (obstructive sleep apnea) Additional History: COMPARISON: None. IMPRESSION: NECK: Right chest wall neurostimulator device with lead extending craniallyand terminating in the right upper neck. Multilevel degenerative changes are seen in the cervical spine. CHEST: Partially imaged neurostimulator leads project over the thoracic spine. The cardiomediastinal silhouette is within normal limits for technique.The aorta is atherosclerotic. Low lung volumes with bronchovascularcrowding. No focal consolidation, pleural effusion, or pneumothorax. Chronic deformity of the left proximal humerus. > Interpreting Provider: Mane Henry MD on 05/11/2024 3:42 PM Sriram Simon MD DIAGNOSTIC IMAGIN G ORDERABLES * XR Neck Soft Tissue (05/10/2024 6:35 PM CDT) Anatomical Region Laterality Modality Head Digital Radiogra phy 05/11/2024 3:39 PM CDT Impressions 05/11/2024 3:42 PM CDT IMPRESSION: NECK: Right chest wall neurostimulator device with lead extending cranially and terminating in the right upper neck. Multilevel degenerative changes are seen in the cervical spine. CHEST: Partially imaged neurostimulator leads project over the thoracic spine. The cardiomediastinal silhouette is within normal limits for technique. The aorta is atherosclerotic. Low lung volumes with bronchovascular crowding. No focal consolidation, pleural effusion, or pneumothorax. Chronic deformity of the left proximal humerus. > Interpreting Provider: Mane Henry MD on 05/11/2024 3:42 PM Narrative 05/11/2024 3:42 PM CDT PROCEDURE: XR CHEST 2VW, XR NECK SOFT TISSUE DATE/TIME OF EXAM: 05/10/2024 6:36 PM CLINICAL INFORMATION: None relevant/not provided if blank. Indication: G47.33: COSTA (obstructive sleep apnea) Additional History: COMPARISON: None. Procedure Note Mane Henry MD - 05/11/2024 PROCEDURE: XR CHEST 2VW, XR NECK SOFT TISSUE DATE/TIME OF EXAM: 05/10/2024 6:36 PM CLINICAL INFORMATION: None relevant/not provided if blank. Indication: G47.33: COSTA (obstructive sleep apnea) Additional History: COMPARISON: None. IMPRESSION: NECK: Right chest wall neurostimulator device with lead extending craniallyand terminating in the right upper neck. Multilevel degenerative changes are seen in the cervical spine. CHEST: Partially imaged neurostimulator leads project over the thoracic spine. The cardiomediastinal silhouette is within normal limits for technique.The aorta is atherosclerotic. Low lung volumes with bronchovascularcrowding. No focal consolidation, pleural effusion, or pneumothorax. Chronic deformity of the left proximal humerus. > Interpreting Provider: Mane Henry MD on 05/11/2024 3:42 PM Sriram Simon MD DIAGNOSTIC IMAGIN G ORDERABLES * ETT LINE PERFORMABLE (05/10/2024 2:12 PM CDT) Narrative Juan Mann Anes Asst - 05/10/2024 2:12 PM CDT Juan Mann Anes Asst 05/10/2024 2:13 PM Endotracheal Tube Placement: Patient Location: OR. Intubation Event Date/Time: 05/10/2024 1:15 PM Procedure: intubation (39311) Procedure Section: Sedation: under general anesthesia. Indications for Airway Management: anesthesia Induction: standard IV Patient Position: sniffing Mask Ventilation: easy with oral airway. Blade Type: Leann Blade Size: 3 Laryngoscopy View: grade 2 (partial cords) Intubation Adjuncts: cricoid pressure and stylet Tube: endotracheal tube Placement: oral Tube type: cuff - inflated Tube Size (MM): 7 Depth of Insertion (CM): 20 Measured From: teeth Cuff Inflated With: air Number of Attempts: 1. Placement Verified By: direct visualization, bilateral breath sounds, chest auscultation and CO2 monitor Tube secured with: adhesive tape. Dentition unchanged? Yes Difficult Airway? No. Procedure Start Time: 05/10/2024 1:15 PM. Staff Section Anesthesia Provider: Juan Mann Anes Asst, Performed the procedure Provider #1: Anthony Michel MD. Anthony Michel MD GENERAL ANESTHESIA O RDERABLES * CBC W/O DIFFERENTIAL (03/17/2024 10:43 AM [facility]) Only the most recent of5 resultswithin the time period is included. WBC 6.3 4.0 - 10.7 x10E9/L 03/17/2024 10:58 AM [facility] RBC Count 3.99 3.90 - 5.20 x10E12/L 03/17/2024 10:58 AM [facility] Hemoglobin 12.3 11.9 - 15.8 g/dL 03/17/2024 10:58 AM [facility] Hematocrit 36.5 34.8 - 46.1 % 03/17/2024 10:58 AM [facility] MCV 91.5 80.0 - 98.0 fL 03/17/2024 10:58 AM [facility] MCH 30.8 26.7 - 33.6 pg 03/17/2024 10:58 AM [facility] MCHC 33.7 31.7 - 36.3 g/dL 03/17/2024 10:58 AM [facility] RDW-CV 11.9 11.3 - 14.8 % 03/17/2024 10:58 AM [facility] Platelet Count 298 150 - 420 x10E9/L 03/17/2024 10:58 AM [facility] MPV 9.1 7.8 - 11.4 fL 03/17/2024 10:58 AM [facility] Blood BLOOD SPECIMEN / Unknown Line Draw / Unknown 03/17/2024 10:43 AM CDT 03/17/2024 10:49 AM CDT Sriram Simon MD LAB - HEMATOLOGY ORDERABLES [address] [address], [facility] [phone] * (ABNORMAL) BASIC METABOLIC PANEL (CALCIUM TOTAL) (03/17/2024 10:43 AM [facility]) Only the most recent of5 resultswithin the time period is included. BUN 21 7 - 26 mg/dL 03/17/2024 11:21 AM [facility] Creatinine 0.56 0.56 - 0.96 mg/dL 03/17/2024 11:21 AM [facility] Sodium 138 136 - 145 mmol/L 03/17/2024 11:21 AM [facility] Potassium 4.3 3.5 - 4.5 mmol/L 03/17/2024 11:21 AM [facility] Chloride 104 98 - 107 mmol/L 03/17/2024 11:21 AM [facility] CO2 26 22 - 29 mmol/L 03/17/2024 11:21 AM [facility] Glucose 99 70 - 115 mg/dL 03/17/2024 11:21 AM [facility] Calcium 9.4 8.4 - 10.2 mg/dL 03/17/2024 11:21 AM [facility] Anion Gap 8 6 - 16 03/17/2024 11:21 AM [facility] BUN/Creatinine Ratio 38(H) 7 - 23 03/17/2024 11:21 AM CDT [facility] Osmolality Calculated 289 275 - 295 mOsm/kg 03/17/2024 11:21 AM CDT [facility] eGFR by CKD-EPI >90 >=90 mL/min/1.7 3 m2 03/17/2024 11:21 AM CDT [facility] Blood BLOOD SPECIMEN / Unknown Line Draw / Unknown 03/17/2024 10:43 AM CDT 03/17/2024 10:49 AM CDT Sriram Simon MD LAB - CHEMISTRY O RDERABLES [facility] [address] [place] [address], [facility] [phone] * MA LARYNGOSCOPY,FLEX FIBER,DIAGNOSTIC (01/06/2024 4:02 PM CDT) Narrative Lorena West - 01/06/2024 4:02 PM CDT Lorena West 01/06/2024 5:04 PM Procedure Note Anesthesia: Lidocaine 2% and Tree-Synephrine 1/2% Endoscopy Type: Flexible Doity-Ckqydghtbuvgab-Zcsavaftgtsk Procedure Details: Informed consent was obtained. The patient was placed in the sitting position. After topical anesthesia and decongestion, the 4 mm laryngoscope was passed. The nasal cavities, nasopharynx, oropharynx, hypopharynx, and larynx were all examined. Vocal cords were examined during respiration and phonation. Pt was additionally examined in the supine position, with particular attention paid to end-expiratory anatomy. The following findings were noted: Moderate AP narrowing at level of hard palate. The patient tolerated procedure well. Complications: None Sriram Simon MD PROCEDURE/MINOR S URGICAL ORDERABLES * MA POLYSOM 6/>YRS CPAP 4/> PARM (06/02/2023 9:21 AM CDT) Narrative Parrish Booth MD - 06/02/2023 9:21 AM CDT Parrish Booth MD 06/02/2023 9:22 AM [facility] Accredited by the [employer] [facility], First Floor [address] [place] [address] Telephone : [phone] Medical Records Patient Name: Alisa Gonzalez : 1955 Date of Study: 06/01/2023 Referring Physician: FRANCK Pineda Type of Montage: Respiratory Scoring System: [facility] SPLIT NIGHT POLYSOMNOGRAM INTERPRETATION 06/01/2023 Procedure: The polysomnogram was performed with a distribution engineering technologist in attendance. Frontal, central, and temporal EEG, EOG, submentalis EMG, oronasal thermistor airflow, nasal pressure transducer airflow, CPAP airflow, thoracic and abdominal respiratory effort by respiratory inductive plethysmography, anterior tibialis EMG, snore sensor, and pulse oximetry were monitored. Sleep stages, periodic limb movements, and EEG arousals were scored in 30-second epochs according to the AASM Scoring Manual. Apnea-hypopnea index was calculated using the recommended definition of hypopnea for scoring events. Data acquisition, collection, and scoring have been validated and clinically correlated. Sleep History: Ms. Alisa Gonzalez, a 68 year old female, was referred to the Sleep Disorders Clinic by FRANCK Pineda for the evaluation of suspected obstructive sleep apnea (COSTA). Current Outpatient Medications: acetaminophen (TYLENOL) 325 MG tablet, Take 2 (two) tablets by mouth every 6 hours Maximum allowable Acetaminophen amount = 4 Grams (4000 mg) / 24 hours., Disp: , Rfl: albuterol HFA (ProAir HFA) 108 (90 Base) MCG/ACT inhaler, Inhale 2 (two) puffs by mouth every 6 hours as needed, Disp: , Rfl: buPROPion SR 12hr (Wellbutrin-SR) 150 MG tablet, Take 1 (one) tablet by mouth 2 times daily, Disp: , Rfl: carbidopa-levodopa (Sinemet) 25-100 MG tablet, Take 2 (two) tablets by mouth 3 times daily, Disp: 540 tablet, Rfl: 3 clonazePAM (KlonoPIN) 0.5 MG tablet, Take 1 (one) tablet by mouth at bedtime, Disp: 30 tablet, Rfl: 5 DULoxetine (Cymbalta) 60 MG capsule, Take 1 (one) capsule by mouth once daily, Disp: , Rfl: ergocalciferol (Drisdol) 1.25 MG (39971 UT) capsule, Take 1 (one) capsule by mouth every 7 days, Disp: , Rfl: ferrous sulfate 325 (65 FE) MG tablet, Take 1 (one) tablet by mouth once daily, Disp: , Rfl: HYDROcodone-acetaminophen ([place]) 7.5-325 MG tablet, Take 1 (one) tablet by mouth every 6 hours as needed for Pain, Disp: , Rfl: Klor-Con M20 20 MEQ tablet, Take 1 (one) tablet by mouth once daily, Disp: , Rfl: levothyroxine (Synthroid) 100 MCG tablet, Take 1 (one) tablet by mouth once daily, Disp: , Rfl: loratadine (Claritin) 10 MG tablet, Take 1 (one) tablet by mouth once daily, Disp: , Rfl: magnesium 250 MG tablet, Take 1 (one) tablet by mouth once daily, Disp: , Rfl: montelukast (Singulair) 10 MG tablet, Take 1 (one) tablet by mouth once daily, Disp: , Rfl: Multiple Vitamins-Minerals (HAIR SKIN NAILS PO), , Disp: , Rfl: nystatin (Mycostatin) 068604 UNIT/GM cream, FOR APPLY TO THE AFFECTED AREA(S) OF BREAST FOLDS BEFORE BED, Disp: , Rfl: Saxon-3 Fatty Acids (fish oil) 1000 MG capsule, , Disp: , Rfl: omeprazole (PriLOSEC) 40 MG capsule, Take 1 (one) capsule by mouth daily before breakfast, Disp: , Rfl: OXcarbazepine (Trileptal) 150 MG tablet, Take 1 (one) tablet by mouth 2 times daily, Disp: 180 tablet, Rfl: 4 Probiotic Product (probiotic daily) capsule, Take by mouth once daily 50 billion, Disp: , Rfl: SUPER B COMPLEX/C PO, , Disp: , Rfl: vitamin D3 (Cholecalciferol) 25 MCG (1000 UNITS) tablet, Take 2 (two) tablets by mouth once daily, Disp: , Rfl: DIAGNOSTIC STUDY Sleep Architecture: During this sleep study, the patient was monitored from 11:16 pm to 6:14 am. During the diagnostic portion, patient slept for 135 minutes and had decreased sleep efficiency of 74%. The patient's initial sleep latency was within normal limits at 10 minutes. The patient had no REM sleep during the diagnostic study. The sleep architecture was as follows: stage N1: 30.4%; stage N2: 67.4%; stage N3: 2.2%; stage REM: 0%. Respiratory Analysis: The patient's overall apnea-hypopnea index (AHI) was increased at 38.2 per hour while the respiratory effort-related arousal index was increased at 56.9 per hour. The overall respiratory disturbance index (RDI) was 95.1 per hour. The supine AHI was 85.3 per hour and the supine RERA index was 45.3 per hour. The lateral AHI was 28.8 per hour and the lateral RERA index was 59.2 per hour. There were 16 obstructive apneas, 0 central apneas, 0 mixed apneas, 70 hypopneas, and 128 respiratory effort-related arousals (RERA). There was no evidence of periodic breathing. Oximetry Data: The minimum oxygen saturation was decreased at 80% during REM sleep. The time spent with oxygen saturation less than 90% was 17 minutes of the total diagnostic sleep time. Snoring Profile: Moderate snoring was detected during this study. Periodic Limb Movements: The patient's periodic limb movement index was within normal limits at 11.1 per hour. EEG Profile: The patient's total arousal index was elevated at 100.9 per hour. Approximately %89 of the arousals was due to respiratory events, 11% was due to leg movements, and 0% was due to spontaneous arousals. There was no epileptiform activity during sleep. Cardiac Profile: EKG showed normal sinus rhythm. No clinically significant arrhythmia was noted. Parasomnias: No parasomnia was noted during this diagnostic study. IMPRESSION: 1. Severe obstructive sleep apnea 2. Sleep-related hypoxemia; cannot rule out sleep-related hypoventilation as cause of hypoxemia since capnography was not performed. THERAPEUTIC PORTION OF STUDY Sleep Architecture: During the therapeutic portion, patient slept for 150.5 minutes and had decreased sleep efficiency of 63.9%. The patient's initial sleep latency was 1.5 minutes. The patient had no REM sleep during the diagnostic study. The sleep architecture on a CPAP therapy was as follows: stage N1: 35.2%; stage N2: 64.8%; stage N3: 0%; stage REM: 0%. Respiratory Analysis, Oximetry Data, and Snoring Profile: Continuous positive airway pressure (CPAP) was titrated from a minimum setting of 4 cmH2O to a maximum setting of 10 cmH2O. No optimal CPAP setting was achieved during this therapeutic trial. CPAP at the maximal level of 10 cmH2O was associated with a normal overall apnea-hypopnea index of 0 per hour and an increased respiratory-related arousal index of 160 per hour. No snoring was detected at the higher CPAP levels. The patient was then shifted to bilevel positive airway pressure (BPAP) which was set at an EPAP 4 cmH2O and an IPAP of 8 cmH2O. No optimal BPAP setting was achieved during this therapeutic trial. BPAP set at an EPAP of 4 cmH2O and an IPAP of 8 cmH2O was associated with an increased overall hypopnea-apnea index of 24 per hour and an increased respiratory-related arousal index of 216 per hour. The patient had a decreased minimum oxygen saturation of 88%. The time spent with oxygen saturation less than 90% was 1.5 minutes of the total therapeutic recording time. EEG Profile: The patient's total arousal index at maximal CPAP level of 10 cmH2O was elevated at 168 per hour based on only 7.5 minutes of sleep time. All of those arousals were due to respiratory events. There was no epileptiform activity during sleep. Cardiac profile: EKG showed normal sinus rhythm. No clinically significant arrhythmia was noted. Parasomnia Profile: No parasomnia was noted during this therapeutic study. IMPRESSION: 1. No optimal CPAP setting was achieved during this therapeutic trial. CPAP at the maximal setting of 10 cmH2O was effective in ameliorating apneas and hypopneas but was associated with persistence of respiratory effort-related arousals. 2. No optimal BPAP setting was achieved during this therapeutic trial. BPAP at the maximal setting of EPAP of 4 cmH2O and IPAP of 8 cmH2O was not effective in ameliorating obstructive sleep apnea. RECOMMENDATIONS: Suggest further titration of CPAP beyond 10 cmH2O to ameliorate residual abnormal respiratory breathing events. Parrish Booth MD, [facility], [facility], [facility] Quick Sketch Artist, [facility] Professor of Internal Medicine Adjunct Fiber Optics Engineer of Neurology Division of Pulmonary, Critical Care, and Sleep Medicine [facility] Medicine This note was electronically signed on 06/02/2023. Farnaz A Dettenmeier APNP-PUBLIC RELATIONS SPECIALIST PROCEDUR E/MINOR SURGICAL ORDERABLES * COMPLETE PFT W/WO BRONCHODILATOR (05/09/2023 2:23 PM CDT) Impressions Gonzalez Valenzuela MD - 05/09/2023 2:[address] [facility] DEPARTMENT OF PULMONARY, CRITICAL CARE, AND SLEEP MEDICINE PULMONARY FUNCTION TEST Please see technologist's comments mentioned in the report. INTERPRETATION: SPIROMETRY: FVC: normal FEV1: normal FEV1/FVC ratio is normal. BRONCHODILATOR RESPONSE: There is no response to bronchodilators however does not mean the patient wont benefit from bronchodilator therapy FLOW-VOLUME LOOPS: Normal flow-volume loops LUNG VOLUMES: Lung volumes by body plethysmography are within normal limits DLCO: Unadjusted for Hb and COHb is normal IMPRESSION: 1. Normal pulmonary function test. 2. No bronchodilator response, however this does not preclude the use of bronchodilators 3. There is no previous study available for comparison Addie Saenz MD Pulmonary & Critical Care Fellow, PGY-4 Division of Pulmonary, Critical Care and Sleep Medicine [facility] [employer] I have reviewed the above study and agree with the interpretation as listed above. Gonzalez Valenzuela MD Fiber Optics Engineer of Pulmonary & Critical Care Medicine [facility] Pager [phone] Narrative Gonzalez Valenzuela MD - 05/09/2023 2:23 PM CDT Addie Saenz MD 05/19/2023 5:35 PM Farnaz A Dettenmeier APNP-PUBLIC RELATIONS SPECIALIST RESPIRAT ORY THERAPY ORDERABLES * (ABNORMAL) CBC W AUTO DIFFERENTIAL (10/20/2022 12:54 PM CDT) WBC 9.0 4.4 - 10.7 x10E9/L 10/20/2022 1:06 PM CDT [facility] WBC Corrected 10/20/2022 1:06 PM CDT [facility] RBC 3.53(L) 3.80 - 5.20 x10E12/L 10/20/2022 1:06 PM CDT [facility] Hemoglobin 11.0(L) 12.0 - 15.6 gm/dL 10/20/2022 1:06 PM CDT [facility] Hematocrit 33.2(L) 35.9 - 45.5 % 10/20/2022 1:06 PM [facility] MCV 94.1 80.7 - 98.3 fl 10/20/2022 1:06 PM [facility] MCH 31.2 26.7 - 34.0 pg 10/20/2022 1:06 PM [facility] MCHC 33.1 30.8 - 35.9 gm/dL 10/20/2022 1:06 PM [facility] Platelet Count 433(H) 153 - 416 x10E9/L 10/20/2022 1:06 PM [facility] RDW-CV 12.8 12.1 - 14.9 % 10/20/2022 1:06 PM [facility] MPV 8.8(L) 9.4 - 12.9 fl 10/20/2022 1:06 PM [facility] Neutrophils % 72.1 44.0 - 73.0 % 10/20/2022 1:06 PM [facility] Lymphocytes % 16.5(L) 20.0 - 43.0 % 10/20/2022 1:06 PM [facility] Monocytes % 9.6 5.0 - 13.0 % 10/20/2022 1:06 PM [facility] Eosinophils % 1.1 0.0 - 6.0 % 10/20/2022 1:06 PM [facility] Basophils % 0.4 0.0 - 2.0 % 10/20/2022 1:06 PM [facility] Immature Granulocytes 0.3 0 - 1 % 10/20/2022 1:06 PM [facility] Neutrophil Absolute 6.47 2.01 - 7.14 x10E9/L 10/20/2022 1:06 PM [facility] Lymphocytes Absolute 1.48 1.07 - 3.94 x10E9/L 10/20/2022 1:06 PM [facility] Monocytes Absolute 0.86 0.26 - 1.07 x10E9/L 10/20/2022 1:06 PM [facility] Eosinophils Absolute 0.10 0 - 0.47 x10E9/L 10/20/2022 1:06 PM [facility] Basophils Absolute 0.04 0 - 0.08 x10E9/L 10/20/2022 1:06 PM CDT [facility] Immature Granulocytes Absolute 0.03 0.00 - 0.06 x10E9/L 10/20/2022 1:06 PM CDT [facility] nRBC Auto 0 /100 WBC 10/20/2022 1:06 PM CDT [facility] Blood BLOOD SPECIMEN / Unknown Venipuncture / Unknown 10/20/2022 12:54 PM CDT 10/20/2022 1:02 PM CDT Parrish Stoll MD LAB - HEMATOLOGY ORDERABLES [facility] [address] [address] * CALCIUM IONIZED PANEL (10/20/2022 12:54 PM CDT) Calcium 9.4 8.4 - 10.4 mg/dL 10/20/2022 1:27 PM CDT [facility] Protein Total 6.6 6.4 - 8.3 gm/dL 10/20/2022 1:27 PM CDT [facility] Calculatedium Ionized Calculated mg/dL 4.30 3.50 - 5.20 mg/dL 10/20/2022 1:27 PM CDT [facility] Blood BLOOD SPECIMEN / Unknown Venipuncture / Unknown 10/20/2022 12:54 PM CDT 10/20/2022 1:02 PM CDT Parrish Stoll MD LAB - CHEMISTRY O RDERABLES [facility] [address] [address] * MAGNESIUM BLOOD (10/20/2022 12:54 PM CDT) Magnesium 2.1 1.6 - 2.6 mg/dL 10/20/2022 1:25 PM CDT [facility] Blood BLOOD SPECIMEN / Unknown Venipuncture / Unknown 10/20/2022 12:54 PM CDT 10/20/2022 1:02 PM CDT Parrish Stoll MD LAB - CHEMISTRY O RDERABLES Performing Organization Address [facility] de Phone Number [facility] [address] [phone] * IMAGING RADIOLOGY XRAY RESULTS ORDER (10/16/2022 11:36 PM CDT) Anatomical Region Laterality Modality Other Narrative 10/16/2022 11:36 PM CDT Ordered by an unspecified provider. Scanned Document IMAGING * CARDIAC RHYTHM STRIP ORDER (10/16/2022 5:55 PM CDT) Narrative 10/16/2022 5:55 PM CDT Ordered by an unspecified provider. Scanned Document CARDIAC SERVICES ORD ERABLES * (ABNORMAL) HGB HCT PANEL (10/15/2022 4:58 AM CDT) Hemoglobin 10.0(L) 12.0 - 15.6 gm/dL 10/15/2022 5:20 AM CDT [facility] Hematocrit 31.0(L) 35.9 - 45.5 % 10/15/2022 5:20 AM CDT [facility] Blood BLOOD SPECIMEN / Unknown Lab Venipuncture / Unknown 10/15/2022 4:58 AM CDT 10/15/2022 5:14 AM CDT Amy Mondragon MD LAB - HEMATOLOGY ORD ERABLES Performing Organization Address [facility] Co de Phone Number [facility] [address] [phone] * FL DILEEP SURGERY (10/14/2022 12:05 PM CDT) Only the most recent of2 resultswithin the time period is included. Narrative [facility] - 10/14/2022 12:06 PM CDT For details of this study, please see the providers note. Amy Mondragon MD FLUOROSCOPY ORDERABL ES Performing Organization Address [facility] Co de Phone Number [facility] [address] [id number] * ETT LINE PERFORMABLE (10/14/2022 8:11 AM CDT) Narrative Catrachito Robles MD - 10/14/2022 8:11 AM CDT Catrachito Robles MD 10/14/2022 8:12 AM Endotracheal Tube Placement: Patient Location: OR. Procedure: intubation ([id number]). Procedure Section: Sedation: under general anesthesia. Indications for Airway Management: anesthesia Patient Position: sniffing Mask Ventilation: easy. Blade Type: Video Blade Size: 3 Laryngoscopy View: grade 1 (full cords) Nasal Airway Size: 7 Tube: endotracheal tube Placement: oral Measured From: lips Cuff Inflated With: air Number of Attempts: 1. CXR Findings: ETT in proper place. Tube secured with: adhesive tape. Staff Section Anesthesia Provider: Catrachito Robles MD, Performed the procedure Catrachito Robles MD GENERAL ANESTHESIA O RDERABLES * Peripheral Nerve Block (10/14/2022 8:02 AM CDT) Narrative Catrachito Robles MD - 10/14/2022 8:02 AM CDT Catrachito Robles MD 10/14/2022 8:04 AM Peripheral Nerve Block Procedure: Peripheral Nerve Block Patient Location: Pre-op Preprocedure Section: Indications: at surgeon's request and postop pain management. Pre-anesthetic Checklist: Patient identified, IV Checked, Site examined and clear, Risks and benefits discussed, Surgical consent verified, Monitors and equipment, Time-out performed, Informed consent obtained, Pre-op evaluation done, Questions answered/anesthesia questions answered, Allergies reviewed and Removal hand/wrist jewelry Monitors: BP, Pulse Ox, EKG and ETCO2. Patient Condition: sedated, meaningful contact maintained throughout procedure Patient Position: supine Patient Sedated? Yes Sedation Type: moderate Sedation Agents: fentaNYL (PF) (SUBLIMAZE) injection - Intravenous 100 mcg - 10/14/2022 7:30:00 AM midazolam (VERSED) injection - Intravenous 2 mg - 10/14/2022 7:30:00 AM Procedure Section Laterality: right Block Performed: popliteal Prep: Chloraprep Strerile Field: gloves, mask and hat/cap Skin localized with: lidocaine (XYLOCAINE) 1 % injection - Infiltration 1 mL - 10/14/2022 7:30:00 AM Needle Type: Echogenic insultaed Needle Gauge: 21 Needle Length: 80 mm Ultrasound Guided? Yes Technique: in plane Visualization: Preliminary scan performed, Important anatomical structures identified, Needle tip visualized throughout the procedure, Target identified, No intraneural or intravascular puncture occurred, Ultrasound image in chart, Local visualized surrounding nerve on ultrasound and Hydrodissection utilized Injection was made incrementally with constant monitoring and aspirations every 5 mL's Injection Assessment: Slow fractionated injection Block Agents or Additives used? Yes Block agents used: bupivacaine PF (MARCAINE PF) 0.5 % injection - Infiltration 15 mL - 10/14/2022 7:30:00 AM bupivacaine liposome (EXPAREL) 1.3 % injection - Infiltration 10 mL - 10/14/2022 7:30:00 AM Procedure Tolerance: tolerated well Assessment: completed Staff Section Anesthesia Provider: Catrachito Robles MD, Performed the procedure Catrachito Robles MD GENERAL ANESTHESIA O RDERABLES * TYPE + SCREEN PANEL (10/14/2022 6:50 AM CDT) Only the most recent of2 resultswithin the time period is included. ABO Rh A POS 10/14/2022 7:56 AM CDT [facility] Comment:History checked. Antibody Screen NEG 7:56 AM CDT [facility] Blood Bank BLOOD SPECIMEN / Unknown Venipuncture / Unknown 10/14/2022 6:50 AM CDT 10/14/2022 6:54 AM CDT Amy Mondragon MD LAB - BLOOD BANK ORD ERABLES [facility] [place] [address], [facility] [phone] * XR FOOT RIGHT WT BEARING 3VW (06/12/2022 2:26 PM FLOOD CONTROL ENGINEER) Anatomical Region Laterality Modality Ankle / Foot Radiographic Adali ging 06/12/2022 2:29 PM FLOOD CONTROL ENGINEER Impressions 06/12/2022 2:47 PM FLOOD CONTROL ENGINEER IMPRESSION: 1.Lucency surrounding the syndesmotic screws suggest progressive loosening with widening of the tibiofibular syndesmosis measuring up to 9 mm, previously 6 mm. 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 3.No acute fracture in the foot. Report dictated by Kanika Pablo DO (residential real estate appraiser). IKarely MD have personally reviewed and interpreted this examination/study. > Interpreting Provider: Karely Varghese MD on 06/12/2022 2:47 PM Narrative 06/12/2022 2:47 PM FLOOD CONTROL ENGINEER PROCEDURE: XR ANKLE RIGHT 3VW OR MORE, XR FOOT RIGHT WT BEARING 3VW, DATE/TIME OF EXAM: 06/12/2022 1:18 PM, LOCATION [facility] INDICATION: Z47.89: Orthopedic aftercare ADDITIONAL CLINICAL INFORMATION: Ordering Provider Reason For Exam: PAIN (accession [id number]), right foot pain (accession [id number]) COMPARISON: Right ankle 03/12/2022. FINDINGS: RIGHT ANKLE: Redemonstration of internal fixation of a bimalleolar fracture with lateral fibular plate and screws, 2 of which are syndesmotic and a medial malleolus screw. The hardware appears intact. Interval increase in the distal tibiofibular syndesmosis now measuring up to 9 mm. Since he surrounding the syndesmotic screws in the tibia and fibula are unchanged, but compatible with loosening. The medial tibiotalar clear space remains widened. 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 Severe distal leg soft tissue swelling. RIGHT FOOT: No acute fracture. The joint spaces are maintained. Diffuse osteopenia. A calcaneal spur is present. Soft tissue swelling is noted. Pes planus. Procedure Note Karely Varghese MD - 06/12/2022 PROCEDURE: XR ANKLE RIGHT 3VW OR MORE, XR FOOT RIGHT WT BEARING 3VW, DATE/TIME OF EXAM: 06/12/2022 1:18 PM, LOCATION [facility] INDICATION: Z47.89: Orthopedic aftercare ADDITIONAL CLINICAL INFORMATION: Ordering Provider Reason For Exam: PAIN (accession [id number]), rightfoot pain (accession [id number]) COMPARISON: Right ankle 03/12/2022. FINDINGS: RIGHT ANKLE: Redemonstration of internal fixation of a bimalleolar fracture withlateral fibular plate and screws, 2 of which are syndesmotic and a medialmalleolus screw. The hardware appears intact. Interval increase in the distal tibiofibular syndesmosis now measuring up to 9 mm. Since he surroundingthe syndesmotic screws in the tibia and fibula are unchanged, but compatible with loosening. The medial tibiotalar clear space remains widened. 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 Severe distal leg soft tissue swelling. RIGHT FOOT: No acute fracture. The joint spaces are maintained. Diffuse osteopenia.A calcaneal spur is present. Soft tissue swelling is noted. Pes planus. IMPRESSION: 1.Lucency surrounding the syndesmotic screws suggest progressiveloosening with widening of the tibiofibular syndesmosis measuring up to 9 mm, previously 6 mm. 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 3.No acute fracture in the foot. Report dictated by Kanika Pablo DO (residential real estate appraiser). I, Karely Varghese MD have personally reviewed and interpreted this examination/study. > Interpreting Provider: Karely Varghese MD on :47 PM Amy Mondragon MD DIAGNOSTIC IMAGING O RDERABLES * VITAMIN D 25-HYDROXY (09/24/2021 9:17 AM FLOOD CONTROL ENGINEER) [facility] Signature Vitamin D, 25 Hydroxy 56.0 30.0 - 80.0 ng/mL 09/24/2021 10:18 AM FLOOD CONTROL ENGINEER [facility] Comment: The recommendations for 25-Hydroxy Vitamin D clinical decision points are as follows: Deficient: <20.0 ng/mL Insufficient: 20.0 - 29.9 ng/mL Sufficient: > or =30.0 ng/mL If the 25-Hydroxy Vitamin D results are inconsitent with clinical evidence, it is recommended that follow-up testing using a method such as LC/MS/MS be performed to confirm the result. Reference: The Endocrine Society Clinical Practice Guidelines. 2011 Blood BLOOD SPECIMEN / Unknown Lab Venipuncture / Unknown 09/24/2021 9:17 AM FLOOD CONTROL ENGINEER 09/24/2021 9:28 AM FLOOD CONTROL ENGINEER Cori Landers Misty TOOL MARKER-BIOLOGY INTERN LAB - CHEMISTR Y ORDERABLES [address] [address], [facility] [phone] * BLOOD TYPE VERIFICATION (09/23/2021 1:03 AM FLOOD CONTROL ENGINEER) ABO Rh A POS 09/23/2021 2:0 4 AM FLOOD CONTROL ENGINEER [facility] Blood Bank BLOOD SPECIMEN / Unknown Lab Venipuncture / Unknown 09/23/2021 1:03 AM FLOOD CONTROL ENGINEER 09/23/2021 1:13 AM FLOOD CONTROL ENGINEER Provider Unknown LAB - BLOOD BANK ORD ERABLES Performing Organization Address [facility] Co de Phone Number [facility] [address] [place] [id number], [place] [phone] * (ABNORMAL) GLUCOSE - POINT OF CARE (09/22/2021 11:59 AM FLOOD CONTROL ENGINEER) Glucose WB/POC 123(H) 70 - 115 mg/dL 09/23/2021 6:20 AM FLOOD CONTROL ENGINEER [facility] Specimen Type Cap Fingerstick 2021 6:20 AM FLOOD CONTROL ENGINEER [facility] Blood BLOOD SPECIMEN / Unknown 09/22/2021 11:59 AM FLOOD CONTROL ENGINEER 09/23/2021 6:20 AM FLOOD CONTROL ENGINEER Juan Alberto Finch MD LAB - POINT OF CARE ORDERABLES Performing Organization Address City/[facility]/ZIP Co de Phone Number [address] [address], [place] [phone] * IV PLACEMENT PERFORMABLE (09/22/2021 8:32 AM FLOOD CONTROL ENGINEER) Narrative Esau Jefferson Anes Asst - 09/22/2021 8:32 AM FLOOD CONTROL ENGINEER Queen Naomi Lazo 09/22/2021 8:33 AM Peripheral IV Line Placement: Patient Location: OR Procedure: IV start (36533). Procedure Section: Skin Prep: alcohol. Orientation: left Location: arm Local Anesthetic Used? No Brand Name: Guillermo. Catheter Gauge: 20 Catheter Length (in): 1.25 Number of Attempts: 1. Procedure Tolerance: performed while patient under general anesthesia. Procedure Start Time: 09/22/2021 8:04 AM. Procedure End Time: 09/22/2021 8:05 AM. Procedure Total Time: 1 minutes. Staff Section Anesthesia Provider: Esau Jefferson Anes Asst, Performed the procedure Derloy Jennings MD GENERAL ANESTHESIA O SKYE * ETT LINE PERFORMABLE (09/22/2021 8:31 AM FLOOD CONTROL ENGINEER) Narrative Esau Jefferson Anes Asst - 09/22/2021 8:31 AM FLOOD CONTROL ENGINEER Esau Jefferson Anes Asst 09/22/2021 8:32 AM Endotracheal Tube Placement: Patient Location: OR. Intubation Event Date/Time: 09/22/2021 8:02 AM Procedure: intubation ([id number]). Procedure Section: Sedation: under general anesthesia. Indications for Airway Management: anesthesia Induction: standard IV Patient Position: sniffing and supine Mask Ventilation: easy. Blade Type: Leann Blade Size: 3 Laryngoscopy View: grade 1 (full cords) Tube: endotracheal tube Placement: oral Tube type: cuff - inflated Tube Size (MM): 6 Depth of Insertion (CM): 19 Measured From: lips Cuff Inflated With: air Number of Attempts: 1. Placement Verified By: direct visualization, bilateral breath sounds, chest auscultation, CO2 monitor and CO2 detector Tube secured with: adhesive tape and ETT knox. Dentition unchanged? Yes Difficult Airway? No. Procedure Start Time: 09/22/2021 8:02 AM. Procedure End Time: 09/22/2021 8:03 AM. Procedure Total Time: 1 minutes. Staff Section Anesthesia Provider: Esau Jefferson Anes Asst, Performed the procedure Delroy Jennings MD GENERAL ANESTHESIA O SKYE * PTT [facility] (09/22/2021 1:43 AM FLOOD CONTROL ENGINEER) Pathologist [facility] APTT 31.7 23.0 - 38.4 Seconds 09/22/2021 2:12 AM [facility] Comment:Suggested therapeuti c range for full dose I.V. unfractionated heparin therapy for venous thromboembolism is 71 to 109 seconds. Blood BLOOD SPECIMEN / Unknown Lab Venipuncture / Unknown 09/22/2021 1:43 AM FLOOD CONTROL ENGINEER 09/22/2021 1:52 AM FLOOD CONTROL ENGINEER Ilan Hall MD LAB - COAGULATION OR DERABLES Performing Organization Address [facility] Co de Phone Number [address] [address], [facility] [phone] * PT-INR [facility] (09/22/2021 1:43 AM FLOOD CONTROL ENGINEER) [facility] PT 13.4 12.1 - 14.8 Seconds 09/22/2021 2:11 AM [facility] INR 1.0 See Comment 09/22/2021 2:11 AM [facility] Comment:The suggested therap eutic range for standard coumadin (warfarin) therapy is an INR of 2.0-3.0. For high-risk patients (Mechanical Mitral Valve Prosthesis, etc.), the suggested prophylactic therapeutic range is an INR of 2.5-3.5. Blood BLOOD SPECIMEN / Unknown Lab Venipuncture / Unknown 09/22/2021 1:43 AM FLOOD CONTROL ENGINEER 09/22/2021 1:52 AM FLOOD CONTROL ENGINEER Ilan Hall MD LAB - COAGULATION OR DERABLES Performing Organization Address [facility]/ZIP Co de Phone Number [facility] [address] [place] [phone], [facility] [phone] * SARS-COV-2 (COVID-19)+INFLU A+B PCR RAPID (09/21/2021 12:28 PM FLOOD CONTROL ENGINEER) [facility] COVID-19 PCR Not detected Not detected 09/21/19 1:05 PM [facility] Influenza A Rapid DAWNA Not Detected Not Detected 09/21/2021 1:05 PM [facility] Influenza B DAWNA Rapid Not Detected Not Detected 09/21/2021 1:05 PM FLOOD CONTROL ENGINEER [facility] Microbiology SPECIMEN FROM NASOPHARYNGEAL STRUCTURE / Unknown Collection / Unknown 09/21/2021 12:28 PM FLOOD CONTROL ENGINEER 09/21/2021 12:32 PM FLOOD CONTROL ENGINEER Narrative [facility] - 09/21/2021 1:05 PM FLOOD CONTROL ENGINEER Influenza assay performed by Nucleic Acid Amplification. Results do not exclude the possibility of a mixed viral infection. NOTE: Detecting and identifying specific viral nucleic acids from individuals exhibiting signs and symptoms of respiratory infection aids in the diagnosis of respiratory infection, if used in conjunction with other clinical and laboratory findings. The results of this test should not be used as the sole basis for diagnosis, treatment, or patient management decisions. This nucleic acid amplification assay performance was validated by [facility]. This test has been authorized by the Food and Drug administration (FDA)under an Emergency Use Authorization (EUA). This test has been validated in accordance with the FDA's guidance document Policy for Diagnostic Testing in Laboratories Certified to perform High Complexity Testing under CLIA prior to Emergency Use Authorization for Coronavirus Disease-2019 during the Public Health Emergency issued on October 02, 2019. FDA independent review of this validation is pending. This test is only authorized for the duration of time the declaration that circumstances exist justifying the authorization of emergency use of in vitro diagnostic tests for detection of SARS-CoV-2 virus and/or diagnosis of COVID-19 infection under section 564(b)(1) of the Act, 21 U.S.C 360bbb-3 (b)(1), unless the authorization is terminated or revoked sooner. Fact Sheets for this EUA assay are available upon request. Ilan Hall MD LAB - MICROBIOLOGY O RDERABLES [facility] [address] [place] [phone], [facility] [phone] * XR TIBIA FIBULA RIGHT 2VW (09/21/2021 8:47 AM FLOOD CONTROL ENGINEER) Anatomical Region Laterality Modality Lower Extremity Radiographic Adali ging 09/21/2021 8:47 AM FLOOD CONTROL ENGINEER Impressions 09/21/2021 9:02 AM FLOOD CONTROL ENGINEER FINDINGS/IMPRESSION: Patient is status post splint placement which obscures bony and soft tissue details. Patient is status post closed reduction of the dislocated talotibial joint, in improved alignment. Displaced fracture of the medial malleolus is redemonstrated, improved in alignment. Comminuted fracture of the distal fibular shaft is redemonstrated, improved in alignment. Knee joint arthroplasty is redemonstrated. Report dictated by Srinivas Salazar MD (residential real estate appraiser). Dr. LORENA Isaacs M.D. have personally reviewed and interpreted this examination/study. This report was electronically signed by LORENA SOUSA M.D. on 09/21/2021 9:02 AM . Narrative 09/21/2021 9:02 AM FLOOD CONTROL ENGINEER EXAMINATION: XR TIBIA FIBULA RIGHT 2VW HISTORY: S82.891A: Closed fracture of right ankle, initial encounter COMPARISON: Outside knee and ankle x-rays dated 09/20/2021 Procedure Note Lorena Sousa MD - 09/21/2021 EXAMINATION: XR TIBIA FIBULA RIGHT 2VW HISTORY: S82.891A: Closed fracture of right ankle, initial encounter COMPARISON: Outside knee and ankle x-rays dated 09/20/2021 FINDINGS/IMPRESSION: Patient is status post splint placement which obscures bony and soft tissue details. Patient is status post closed reduction of the dislocated talotibial joint, in improved alignment. Displaced fracture of the medial malleolus is redemonstrated, improved in alignment. Comminuted fracture of the distal fibular shaft is redemonstrated, improved in alignment. Knee joint arthroplasty is redemonstrated. Report dictated by Srinivas Salazar MD (residential real estate appraiser). Dr. LORENA Isaacs M.D. have personally reviewed and interpreted this examination/study. This report was electronically signed by LORENA SOUSA M.D. on 09/21/2021 9:02 AM . Ilan Hall MD DIAGNOSTIC IMAGING O RDERABLES * PAP [place]P ([place]) (10/11/2010 12:00 AM FLOOD CONTROL ENGINEER) Pathologist [facility] Hand Cultivator Report CASE: [id number] PATIENT: ALISA GONZALEZ Referring Physician: [id number]: SUSAN ELIZABETH Signing Pathologist: WXL: RAJAN ELDRIDGE(ASCP) Signout Date: 10/12/2010 ADEQUACY:Satisfacto ry for evaluation. No endocervical cells/transformatio n zone component present. NARRATIVE DESCRIPTION:Negativ e for intraepithelial lesion or malignancy. ADDITIONAL COMMENTS:Many inflammatory cells seen. [facility] 10/11/2010 10/11/2010 Historical Provider MD LAB - BODY FLUID ORDERABLES [facility] [address] [address] Care Teams Faucet Polisher Relationship Specialty Start Date End Date Dayanna Aj, TOOL MARKER-PUBLIC RELATIONS SPECIALIST [address] [place] [phone] PCP - General Nurse Practitioner Family 10/08/23
--- OUTSIDE RECORDS SUMMARY | 2024-09-14 14:56 | XMS_ITS | Clinical Summary ---
Author Organization [facility] Address [address] [place] [address] Care Team Providers Care Osteopathic Resident Name Role Phone Dayanna Aj Adam LUCIA-LUMBER STACKER DRIVER Primary Care Provider Source Comments [facility],non-owned Affiliates and Associated Physician Practices is amultiple site organization consisting of ambulatory clinics and hospital sitesin [place], [place], [place] and [place]. This disclosure is being madepursuant to the Care Everywhere program and may not contain all information available regarding this patient. Last updated 18.[facility] Green Clean Allergies Active Allergy Reactions Criticality Noted Date Comments Lisinopril Cough 06/16/2024 Lorazepam Psychiatric Medium 05/19/2023 I get weird with it Pregabalin Swelling High 09/21/2021 Skin Adhesives Rash Medium 10/11/2022 Skin peels off; Paper tape ok Medications * Be aware that medications may not be up to date on this document. Alwaysverify current medications with the patient. Medication Sig Dispensed Refills Start Date End Date Status ferrous sulfate 325 (65 FE) MG tablet Take 1 (one) tablet by mouth once daily Active loratadine (Claritin) 10 MG tablet Take 1 (one) tablet by mouth once daily Active omeprazole (PriLOSEC) 40 MG capsule Take 1 (one) capsule by mouth daily before breakfast Active albuterol HFA (ProAir HFA) 108 (90 Base) MCG/ACT inhaler Inhale 2 (two) puffs by mouth every 6 hours as needed Active Makinen-3 Fatty Acids (fish oil) 1000 MG capsule Active SUPER B COMPLEX/C PO Take 1 tablet by mouth 2 times daily Active Multiple Vitamins-Minerals (HAIR SKIN NAILS PO) Active magnesium 250 MG tablet Take 1 (one) tablet by mouth 2 times daily Active vitamin D3 (Cholecalciferol) 25 MCG (1000 UNITS) tablet Take 2 (two) tablets by mouth once daily Active Probiotic Product (probiotic daily) capsule Take by mouth every 7 days 50 billion Active DULoxetine (Cymbalta) 60 MG capsule Take 1 (one) capsule by mouth once daily 11/17/2021 Active montelukast (Singulair) 10 MG tablet Take 1 (one) tablet by mouth once daily 10/31/2021 Active HYDROcodone-acetam inophen (Callaway) 7.5-325 MG tablet Take 1 (one) tablet by mouth every 6 hours as needed for Pain Active Klor-Con M20 20 MEQ tablet Take 1 (one) tablet by mouth once daily 02/05/2023 Active nystatin (Mycostatin) 476693 UNIT/GM cream 04/22/2023 Active amoxicillin (Amoxil) 500 MG capsule as needed 08/06/2023 Active benztropine (Cogentin) 1 MG tablet Take 1 (one) tablet by mouth once daily Active vitamin D, ergocalciferol, (Drisdol) 1.25 MG (71942 UT) capsule 10/09/2023 Active clonazePAM (KlonoPIN) 0.5 MG tabletIndications: RBD (REM behavioral disorder) Take 1 (one) tablet by mouth at bedtime 90 tablet 1 03/10/2024 Active lisinopril (Prinivil; Zestril) 10 MG tablet Take 1 (one) tablet by mouth once daily 03/18/2024 Active OXcarbazepine (Trileptal) 150 MG tabletIndications: Trigeminal neuralgia TAKE 1 (ONE) TABLET BY MOUTH 2 TIMES DAILY 180 tablet 4 03/31/2024 Active acetaminophen (Tylenol) 325 MG tablet Take 2 (two) tablets by mouth every 6 hours as needed for Fever or Pain Maximum allowable Acetaminophen amount = 4 Grams (4000 mg) / 24 hours. 05/10/2024 Active ibuprofen (Motrin) 600 MG tablet Take 1 (one) tablet by mouth every 6 hours as needed for Pain 05/10/2024 Active oxyCODONE, immediate release, (Roxicodone) 5 MG tabletIndications: S/P insertion of hypoglossal nerve stimulator Take 1 (one) tablet by mouth every 6 hours as needed for Pain 12 tablet 05/10/2024 Active Additional Information Patient not taking.Reported on 09/08/2024 docusate sodium (Colace) 100 MG capsule Take 1 (one) capsule by mouth once daily 20 capsule 05/10/2024 Active carbidopa-levodopa (Sinemet) 25-100 MG tabletIndications: RLS (restless legs syndrome) Take 2 (two) tablets by mouth 3 times daily 540 tablet 3 05/24/2024 Active carbidopa-levodopa CR (Sinemet CR) 50-200 MG tabletIndications: RLS (restless legs syndrome) Take 1 (one) tablet by mouth at bedtime 90 tablet 3 05/31/2024 Active losartan (Cozaar) 25 MG tabletIndications: Essential hypertension Take 1 (one) tablet by mouth once daily 90 tablet 3 06/16/2024 Active levothyroxine (Synthroid) 100 MCG tablet Take 1 (one) tablet by mouth once daily 05/27/2024 Active buPROPion XL 24hr (Wellbutrin-XL) 300 MG tablet Take 1 (one) tablet by mouth every morning 07/07/2024 Active fluticasone propionate (Flonase) 50 MCG/ACT nasal sprayIndications:A llergic rhinitis, unspecified seasonality, unspecified trigger [place] 2 (two) sprays into each nostril once daily 48 g 4 07/22/2024 Active Additional Information Patient not taking.Reported on 09/08/2024 fexofenadine (Briana) 180 MG tabletIndications: Allergic rhinitis, unspecified seasonality, unspecified trigger Take 1 (one) tablet by mouth once daily 90 tablet 3 07/22/2024 Active gabapentin (Neurontin) 100 MG capsuleIndications :RLS (restless legs syndrome) Take 3 (three) capsules by mouth at bedtime 270 capsule 3 07/22/2024 Active Active Problems Problem Noted Date Diagnosed Date 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 Periodic limb movement disorder (PLMD) 01/16/2023 Fatigue 01/23/2021 01/16/2023 Allergic rhinitis 01/07/2019 01/16/2023 Osteopenia 12/10/2017 01/16/2023 Asthma 11/18/2017 01/16/2023 Hypothyroidism 05/04/2015 Overview (03/28/2018): Hypothyroidism Migraine without aura 05/04/2015 Overview (03/28/2018): Migraine Obesity, Class I, BMI 30-34.9 05/04/2015 Overview (03/28/2018): Obesity Essential hypertension 05/04/2015 Overview (03/28/2018): Essential Hypertension Persistent depressive disorder 03/10/2006 Overview (03/29/2018): Depression Dyspepsia and other specifie d disorders of function of stomach 06/22/2004 Overview (03/29/2018): Dyspepsia Syndesmotic disruption of right ankle Encounters Date Type Department Care Team Description 09/08/2024 4:10 PM HOSPITAL PHARMACY DIRECTOR Ancillary Procedure [facility] Orthopedics - Radiology [address] [place] [phone] Duncan Sharp DO Primary osteoarthritis of right ankle 09/08/2024 4:05 PM HOSPITAL PHARMACY DIRECTOR Ancillary Procedure [facility] Orthopedics - Radiology [address] [place] [phone] Duncan Sharp DO Primary osteoarthritis of right ankle 09/08/2024 3:20 PM HOSPITAL PHARMACY DIRECTOR Office Visit [facility] Orthopedics [address] [place] [id number] Duncan Sharp DO Nonunion of subtalar arthrodesis (Primary Dx); Primary osteoarthritis of right ankle; Retained orthopedic hardware 08/03/2024 Telephone [facility] - Sleep Services [address] [place] [phone] Parrish Booth MD Medication Problem 08/02/2024 Telephone [facility] [address] [place] [address] [phone] Parrish Booth MD [facility] 07/22/2024 10:40 AM HOSPITAL PHARMACY DIRECTOR Office Visit [facility] [address] [place] [phone] Parrish Booth MD Allergic rhinitis, unspecified seasonality, unspecified trigger (Primary Dx); Vitamin D deficiency; Vitamin B12 deficiency; Acquired hypothyroidism; Folate deficiency; Iron deficiency; Copper deficiency; RLS (restless legs syndrome) 07/22/2024 Travel 06/16/2024 10:40 AM HOSPITAL PHARMACY DIRECTOR Office Visit [facility] [address] [place] [address] [phone] Parrish Booth MD Iron deficiency (Primary Dx); Vitamin D deficiency; Uncomplicated asthma, unspecified asthma severity, unspecified whether persistent (HCC); Vitamin B12 deficiency; Essential hypertension 06/16/2024 Travel from Last 3 Months Immunizations Name Administration Dates Next Due INFLUENZA VACCINE, TRIV. (AF LURIA, FLUZONE TRIVALENT; 6MO+) (IIV3) 07/04/2014,05/10/2013 COVID PFIZER 12+YR 30MCG/0.3mL 05/02/2023 COVID PFIZER BIVALENT 12Y+ 30mcg/0.3ML 04/16/2022 Covid Pfizer primary monoval ent 12+ yr 0.3mL Purple cap 05/03/2021,10/10/2020,09/19/2020 FLU VACCINE TRI IIV3 SPLIT I M (FLUVIRIN) 05/26/2013,05/15/2013 INFLUENZA X7N0-60, HISTORIC VACCINE 05/04,05/20/2022,05/10/2021,2020 INFLUENZA VACCINE, ADJUVANTE D, QUADR. (FLUAD QUADRIVALENT; 65Y+) (AIIV4) 05/02/2023,05/05/2020 INFLUENZA VACCINE, CELL CULT URE, QUADR. (FLUCELVAX QUADRIVALENT; 6MO+) (CCIIV4) 04/23/2017 INFLUENZA VACCINE, HIGH-DOSE , QUADR. (FLUZONE HIGH-DOSE QUADRIVALENT; 65Y+), 0.7 ML (HD-IIV4) 04/17/2022,05/09/2021,05/22/2018 INFLUENZA VACCINE, QUADR. (A FLURIA, FLUZONE QUADRIVALENT; 6MO+) (IIV4) 05/10/2015 INFLUENZA VACCINE, QUADR. (F LUZONE; FLULAVAL; FLUARIX; AFLURIA QUADRIVALENT; 6MO+), 0.5 ML (IIV4) 07/08/2016 PNEUMOCOCCAL PPV VACCINE 07/21/2020 Pneumococcal Pcv13 Conj 11/11/2014,11/04/2014 RSV AREXVY 60YR+ 0.5ML 07/01/2023 TDAP, HISTORIC VACCINE 07/18/2023,10/02/2011 ZOSTER VACCINE, LIVE 11/15/2013 Zoster Hzv Vacc Recombinant Inj Im 07/01/2023, Family History Medical History Relation Name Comments Anxiety Disorder Daughter 1 Depression Daughter 1 Sleep Disorder - Sleep apnea Daughter 1 and RLS None Known Daughter 2 Dementia Father COPD - Chronic Obstructive Pulmonary Disease Mother Cardiomyopathy Mother Parkinson's Disease Mother Thyroid Disease Mother None Known Sister CAD (Coronary Artery Disease) Neg Hx Relation Name Status Comments Daughter 1 Alive Daughter 2 Alive Father Mother Sister Alive Social History Tobacco Use Types Packs/Day Years [...] Comments Blood Pressure 127/73 07/22/2024 10:37 AM HOSPITAL PHARMACY DIRECTOR Pulse 77 07/22/2024 10:37 AM HOSPITAL PHARMACY DIRECTOR Temperature 36.4 C (97.6 F) 05/10/2024 6:40 PM CDT Respiratory Rate 14 05/10/2024 7:00 PM CDT Oxygen Saturation 93% 05/10/2024 7:00 PM CDT Inhaled Oxygen Concentration - - Weight 73.5 kg (162 lb) 07/22/2024 10:37 AM HOSPITAL PHARMACY DIRECTOR Height 144.8 cm (4' 9 ) 07/22/2024 10:37 AM HOSPITAL PHARMACY DIRECTOR Body Mass Index 35.06 07/22/2024 10:37 AM HOSPITAL PHARMACY DIRECTOR Plan of Treatment Upcoming Encounters Date Type Department Care Team (Late st Contact Info) Description 10/06/2024 3:00 PM HOSPITAL PHARMACY DIRECTOR Office Visit [facility] Health Orthopedics [address] [place] [address] Duncan Sharp, [address] [phone] 10/25/2024 1:00 PM CDT Office Visit [facility] [place] [phone] Parrish Booth MD [address] [facility] 2L DIV OF PULMONARY/[place] [address] 11/17/2024 1:00 PM CDT Office Visit [facility] - Neurology [address] [facility] [place] [phone] Katie Augustin APRN-LUMBER STACKER DRIVER [address] [facility] [address]L [place] [phone] Health Maintenance Due Date Last Done Comments BONE DENSITY TESTING 1955 COLOGUARD (AGES 45-75) - COLON CA SCREENING 1953 COLON MONITORING 1953 COLONOSCOPY - COLON CA SCREENING 1953 CT COLONOGRAPHY - COLON CA SCREENING 1953 Colorectal Cancer Screening 1955 FIT - COLON CA SCREENING 1953 FLEX SIG - COLON CA SCREENING 1953 LIPID TESTING 1955 MAMMOGRAM 1955 MEDICARE AWV 12 MONTHS 1953 HEPATITIS C SCREENING 05/13/1971 COVID-19 VACCINE ( season) 2024 05/02/2023, 04/16/2022, 05/03/2021, Additional history exists INFLUENZA VACCINE (#1) 2024 3, 05/20/2022, 05/20/2022, Additional history exists DEPRESSION SCREENING 08/04/2024 SCREENING FOR DIABETES 03/17/2027 4, 10/20/2022, 10/14/2022, Additional history exists DTAP/TDAP/TD VACCINES (3 - Td or Tdap) 07/18/2033 07/18/2023, 10/02/2011 PNEUMOCOCCAL VACCINE 50+ Completed 020, 11/11/2014, 11/04/2014 Respiratory Syncytial Virus (RSV) Vaccine Pt: or over 60 yrs Completed 07/01/2023 ZOSTER VACCINE Completed 07/01/2023, 04/05, 11/15/2013 HEPATITIS B VACCINE Aged Out No longe r eligible based on patient's age to complete this topic HIB VACCINE Aged Out No longer eligi ble based on patient's age to complete this topic HPV VACCINE Aged Out No longer eligi ble based on patient's age to complete this topic MENINGOCOCCAL (Group B) VACCINE Aged Out No longer eligible based on patient's age to complete this topic MENINGOCOCCAL VACCINE Aged Out No kyree gary eligible based on patient's age to complete this topic Goals Goal Patient Goal Type Associated Problems Recent Progress Patient-Stated? Author Mobility General No Bryanna Henning, RN Note: Expected end date: 3 months The goal is to maintain or improve your mobility at the optimum level for you. Interventions: Will be NWB RLE, participate with PT per facility. Medical Devices Implanted Type Area Ultrasound Applications Specialist Device Identifier Shelf Expiration Date Model / Serial / Lot Mri Unsafe Moreira Neuro Stimulator Neuro Stimulator [id number] / / Description:per manual MRI u nsafe 3.5 Mm Lateral Distal Fibula Plate Implanted:Qt y: 1 on 09/22/2021 by Gonzales Rey, DO at [facility] Plate Right: Ankle [employer] [id number] / / Screw 3.5mm 14mm Slf-Tap Cortx Evos Strl Implanted:Qt y: 4 on 09/22/2021 by Gonzales Rey DO at [facility] Screw Right: Ankle [employer] [id number] / / Screw 3.5mm 48mm Slf-Tap Cortx Evos Strl Implanted:Qt y: 1 on 09/22/2021 by Gonzales Rey, at [facility] Screw Right: Ankle [employer] [id number] / / Screw 3.5mm 55mm Slf-Tap Cortx Evos Strl Implanted:Qt y: 1 on 09/22/2021 by Gonzales Rey DO at [facility] Screw Right: Ankle [employer] [id number] / / Fully Threaded 4.7 Mm Osteopenia Screw Implanted:Qt y: 1 on 09/22/2021 by Gonzales Rey DO at [facility] Screw Right: Ankle [employer] [id number] / / 3.5 Mm Locking Screw Implanted:Qt y: 1 on 09/22/2021 by Gonzales Rey DO at [facility] Screw Right: Ankle [employer] [id number] / / Kit Bngf 3cc Aug Inj Implanted:Qt y: 1 on 10/14/2022 by Amy Mondragon MD at [facility] Right: Ankle Endo [employer] 05/03/2023 [id number] / / [id number] Kit Bngf 3cc Aug Inj Implanted:Qt y: 1 on 10/14/2022 by Amy Mondragon MD at [facility] Right: Ankle Barak [employer] 05/03/2023 [id number] / / [id number] Graft Bone Canc 4-9.5mm 15cc Frzdr Chp Implanted:Qt y: 1 on 10/14/2022 by Amy Mondragon MD at [facility] Right: Ankle [employer] 08/19/2026 [id number] / / [id number] Right Small Nail Implanted:Qt y: 1 on 10/14/2022 by Amy Mondragon MD at [facility] Right: Ankle [employer] 05/20/2030 [id number] / / [id number] Screw 5mm 25mm Valor Ti Hindfoot Fsn Sys Implanted:Qt y: 1 on 10/14/2022 by Amy Mondragon MD at [facility] Right: Ankle [employer] 07/16/2030 [id number] / / [id number] Screw 5mm 30mm Valor Ti Hindfoot Fsn Sys Implanted:Qt y: 1 on 10/14/2022 by Amy Mondragon MD at [facility] Right: Ankle [employer] 08/23/2030 [id number] / / [id number] 5x40mm Screw Implanted:Qt y: 1 on 10/14/2022 by Amy Mondragon MD at [facility] Right: Ankle [employer] Inc [id number] 07/16/2030 [id number] / / [id number] 5x70mm Screw Implanted:Qt y: 1 on 10/14/2022 by Amy Mondragon MD at [facility] Right: Ankle [employer] [id number] 01/16/2030 [id number] / / [id number] Screw 3.5mm 18mm T10 Ft Strdr Nonster Implanted:Qt y: 1 on 10/14/2022 by Amy Mondragon MD at [facility] Right: Ankle [employer] [id number] / / Screw 3.5mm 50mm T10 Ft Strdr Nonster Implanted:Qt y: 1 on 10/14/2022 by Amy Mondragon MD at [facility] Right: Ankle Gordon [employer] [id number] / / Graft Bone Ignite Dbm 20ml Pwr Mx Inj - [id number] Implanted:Qt y: 1 on 10/14/2022 by Amy Mondragon MD at [facility] Right: Ankle [employer] 03/18/2026 [id number] / [id number] / Lead Nrstm Inspr 3 Eltrd Cuf Tnl Pelon - [id number] Implanted:Qt y: 1 on 05/10/2024 by Sriram Simon MD at [facility] Right: Neck [employer] [id number] 06/29/2026 [id number] / [id number] / Lead Ns Resp - [id number] Implanted:Qt y: 1 on 05/10/2024 by Sriram Simon MD at [facility] Right: Chest [employer] [id number] 09/15/2026 [id number] / [id number] / Gntr [facility] - [id number] Implanted:Qt y: 1 on 05/10/2024 by Sriram Simon MD at [facility] Right: Chest [employer] [id number] 07/14/2026 3028 / [id number] / Explanted Type Area Ultrasound Applications Specialist Device Identifier Shelf Expiration Date Model / Serial / Lot Fully Threaded 4.7 Mm Osteopenia Screw Explanted:Qty: 1 on 09/22/2021 by Gonzales Rey DO at [facility] Screw Right: Ankle [employer] [id number] / / Wire K 1.6mm 150mm Troc Pnt Ss Fx Strl Explanted:Qty: 2 on 09/22/2021 by Gonzales Rey DO at [facility] Wire Right: Ankle [employer] [id number] / / Procedures Procedure Name Priority Date/Time Associated Diagnosis Comments XR CALCANEUS RIGHT 1VW Routine 09/08/2024 4:05 PM HOSPITAL PHARMACY DIRECTOR Primary osteoarthritis of right ankle XR ANKLE RIGHT 3VW OR MORE Routine 09/08/2024 4:04 PM HOSPITAL PHARMACY DIRECTOR Primary osteoarthritis of right ankle BASIC METABOLIC PANEL (CALCIUM TOTAL) STAT 03/17/2024 10:43 AM CDT COSTA (obstructive sleep apnea) from Last 3 Months or Most Recently Relevant to Health Maintenance Results * XR Calcaneus Right 1Vw (09/08/2024 4:05 PM HOSPITAL PHARMACY DIRECTOR) Narrative [facility] - 09/08/2024 4:05 PM HOSPITAL PHARMACY DIRECTOR For details of this study, please see the providers note. Duncan Sharp DO DIAGNOSTIC IMAGING O RDERAJENNIFER Performing Organization Address [facility]/ZIP Co de Phone Number [facility] * XR Ankle Right 3Vw or More (09/08/2024 4:04 PM HOSPITAL PHARMACY DIRECTOR) Narrative [facility] - 09/08/2024 4:05 PM HOSPITAL PHARMACY DIRECTOR For details of this study, please see the providers note. Duncan Sharp DO DIAGNOSTIC IMAGING O QIANAERAJENNIFER Performing Organization Address [facility]/ZIP Co de Phone Number [facility] * (ABNORMAL) BASIC METABOLIC PANEL (CALCIUM TOTAL) (03/17/2024 10:43 AM CDT) BUN 21 7 - 26 mg/dL 03/17/2024 11:21 AM [facility] Creatinine 0.56 0.56 - 0.96 mg/dL 03/17/2024 11:21 AM [facility] Sodium 138 136 - 145 mmol/L 03/17/2024 11:21 AM [facility] Potassium 4.3 3.5 - 4.5 mmol/L 03/17/2024 11:21 AM [facility] Chloride 104 98 - 107 mmol/L 03/17/2024 11:21 AM [facility] CO2 26 22 - 29 mmol/L 03/17/2024 11:21 AM [facility] Glucose 99 70 - 115 mg/dL 03/17/2024 11:21 AM [facility] Calcium 9.4 8.4 - 10.2 mg/dL 03/17/2024 11:21 AM [facility] Anion Gap 8 6 - 16 03/17/2024 11:21 AM [facility] BUN/Creatinine Ratio 38(H) 7 - 23 03/17/2024 11:21 AM [facility] Osmolality Calculated 289 275 - 295 mOsm/kg 03/17/2024 11:21 AM [facility] eGFR by CKD-EPI >90 >=90 mL/min/1.7 3 m2 03/17/2024 11:21 AM CDT [facility] Blood BLOOD SPECIMEN / Unknown Line Draw / Unknown 03/17/2024 10:43 AM CDT 03/17/2024 10:49 AM CDT Sriram Simon MD LAB - CHEMISTRY O RDERABLES [facility] [address] [place] [address], [facility] [phone] from Last 3 Months or Most Recently Relevant to Health Maintenance Advance Directives * Full Code (Latest Code Status on File) Date Activated Date Inactivated Comments 10/14/2022 12:56 PM 10/15/2022 3:28 PM * Full Code Date Activated Date Inactivated Comments 09/21/2021 11:17 AM 09/25/2021 3:39 PM Care Teams Osteopathic Resident Relationship Specialty Start Date End Date Dayanna Aj, MAILS SUPERVISOR-LUMBER STACKER DRIVER [address] [place] [phone] PCP - General Nurse Practitioner Family 10/08/23
--- OUTSIDE RECORDS SUMMARY | 2024-09-14 14:57 | XMS_ITS | Clinical Summary ---
Author Organization [facility] Address [address] [place] [address] Care Team Providers Care Surgical Appliances Salesperson Name Role Phone Juana Nguyen MD Primary Care Provider [phone] Allergies Active Allergy Reactions Criticality Noted Date Comments Pregabalin Angioedema,Swelling High 09/21/2021 Tape Contact Dermatitis,Rash Medium 01/10/2022 Medications acetaminophen 325 MG tablet Take 650 mg by mouth. 2 Active albuterol sulfate HFA 108 (90 Base) MCG/ACT inhaler albuterol sulfate HFA 90 mcg/actuation aerosol inhaler TAKE 2 PUFFS BY MOUTH EVERY 4 HOURS NEEDED Active magnesium-alum inum-simethico ne 200-200-20 MG/5ML suspension 30 mLs. 2 Active amoxicillin 500 MG capsule TAKE 4 TABLETS 1 HOUR PRIOR TO APPOINTMENT 2 Active apixaban 2.5 MG tablet Take 2.5 mg by mouth 2 (two) times daily. 2 Active aspirin EC 325 MG tablet aspirin 325 mg tablet,delayed release TAKE 1 TABLET BY MOUTH TWICE A DAY WITH MEAL Active zonisamide 100 MG capsule zonisamide 100 mg capsule TAKE 1 CAPSULE BY MOUTH ONCE DAILY Active traMADol 50 MG tablet tramadol 50 mg tablet Active topiramate 25 MG tablet Topamax 25 mg tablet take one tablet at bedtime daily Active temazepam 7.5 MG capsule temazepam 7.5 mg capsule TAKE ONE CAPSULE BY MOUTH EVERY DAY FOR 3 WEEKS Active SUMAtriptan 100 MG tablet sumatriptan 100 mg tablet take one tablet at onset of headache may repeat in 2 hours. Max 2 tablets daily Active pregabalin 50 MG capsule every 8 (eight) hours. Active pramipexole 0.25 MG tablet pramipexole 0.25 mg tablet Active KLOR-CON M20 20 MEQ tablet Take 20 mEq by mouth daily. 2 Active polyethylene glycol 17 GM/SCOOP powder Take 17 g by mouth daily. 2 Active oxyCODONE-acet aminophen 5-325 MG tablet oxycodone-acetami nophen 5 mg-325 mg tablet TAKE 1 TABLET BY MOUTH EVERY 4 TO 6 HOURS Active Ospemifene (OSPHENA) 60 MG Tab Osphena 60 mg tablet Active omeprazole EC 20 MG tablet See Instructions, Tab-DR, 3 cap, 0 Refill(s), 2 tab Oral q hs, Route to Pharmacy Electronically, [facility]/pharmacy #[id number], 150, 09/27/21 13:13:00 INTERCHANGE AGENT, Height/Length Dosing, cm, 97.8, 09/25/21 18:28:00 INTERCHANGE AGENT, Weight Dosing, kg 2 Active omeprazole 40 MG capsule omeprazole 40 mg capsule,delayed release TAKE 1 CAPSULE BY MOUTH EVERY DAY Active nystatin powder nystatin 100,000 unit/gram topical powder Active nortriptyline 10 MG capsule nortriptyline 10 mg capsule TAKE 4 CAPSULES BY MOUTH AT BEDTIME Active montelukast 10 MG tablet Take 10 mg by mouth every evening. 2 Active methocarbamol 750 MG Tab methocarbamol 750 mg tablet 2 Active naproxen EC 500 MG tablet naproxen 500 mg tablet,delayed release Active metaxalone 800 MG tablet metaxalone 800 mg tablet Active melatonin 3 MG tablet 3 mg. 2 Active LORazepam 0.5 MG tablet Ativan 0.5 mg tablet TAKE 1 TABLET 1 HOUR PRIOR TO PROCEDURE AND MAY REPEAT X 1 Active loratadine 10 MG tablet loratadine 10 mg tablet TAKE 1 TABLET EVERY MORNING Active levothyroxine 25 MCG tablet levothyroxine 25 mcg tablet Active levothyroxine 150 MCG tablet levothyroxine 150 mcg tablet Active influenza virus vaccine, PF, 0.5 ML injection Afluria 4611-6887(PF) 45 mcg (15 mcg x 3)/0.5 mL intramuscular syringe TO BE ADMINISTERED BY PHARMACIST FOR IMMUNIZATION Active influenza vaccine split high-dose (FLUZONE HIGH-DOSE) 0.5 ML injection Fluzone High-Dose (PF) 180 mcg/0.5 mL intramuscular syringe PHARMACIST ADMINISTERED IMMUNIZATION ADMINISTERED AT TIME OF DISPENSING Active Influenza Vac A&B SA Adj Quad (FLUAD QUADRIVALENT) 0.5 ML Prefilled Syringe Fluad Quad (65yr up)(PF) 60 mcg (15 mcg x 4)/0.5mL IM syringe PHARMACY ADMINISTERED Active HYDROcodone-ac etaminophen 7.5-325 MG tablet hydrocodone 7.5 mg-acetaminophen 325 mg tablet TAKE 1 TABLET BY MOUTH EVERY 6 HOURS DO NOT FILL UNTIL 11/30/19 Active gabapentin 300 MG capsule Take 300 mg by mouth nightly at bedtime. 2 Active furosemide 20 MG tablet furosemide 20 mg tablet TAKE 1 TO 2 TABLETS BY MOUTH EVERY DAY Active fluticasone propionate 50 MCG/ACT nasal spray fluticasone propionate 50 mcg/actuation nasal spray,suspension INSTILL 1 SPRAY IN EACH NOSTRIL EVERY DAY 2 Active etodolac 400 MG tablet etodolac 400 mg tablet Active vitamin D2, ergocalciferol , 73982 UNITS capsule Take 50,000 Units by mouth once a week. 2 Active DULoxetine 60 MG capsule Take 60 mg by mouth daily. 2 Active docusate sodium 100 MG capsule Take 100 mg by mouth 2 (two) times daily. 2 Active diazePAM 5 MG tablet diazepam 5 mg tablet Active clonazePAM 0.5 MG tablet clonazepam 0.5 mg tablet 2 Active ciprofloxacin 500 MG tablet ciprofloxacin 500 mg tablet TAKE 1 TABLET BY MOUTH EVERY12 HOURS Active cefadroxil 500 MG capsule cefadroxil 500 mg capsule Active carbidopa-levo dopa 25-100 MG tablet carbidopa 25 mg-levodopa 100 mg tablet TAKE 1 TABLET BY MOUTH EVERY DAY 2 Active buPROPion XL 150 MG 24 hr tablet bupropion HCl XL 150 mg 24 hr tablet, extended release Active Family History Medical History Relation Comments Colon Cancer Maternal Grandmother Breast Cancer Mother COPD Mother Parkinson's Disease Mother Colon Cancer Paternal Grandmother Relation Status Comments Father Maternal Grandfather Maternal Grandmother Mother Paternal Grandmother Social History Tobacco Use Types Packs/Day Years Used Date Smoking Tobacco: Never Smokeless Tobacco: Never Alcohol Use Standard Drinks/Week Comments Never 0 (1 standard drink = 0.6 oz pur e alcohol) PHQ-2 Answer Date Recorded PHQ-2 Score - If the patient scores above 3, please move on to questions 3-9 3 01/10/2022 Comments Unknown Sex and Gender Information Value Date Recorded Sex Assigned at Not on file Legal Sex Female 7:41 PM CDT Gender Identity Female 01/07/2022 9:08 AM CDT Sexual Orientation Straight 01/07/2022 9: 08 AM CDT Last Filed Vital Signs Vital Sign Reading Time Taken Comments Blood Pressure 130/80 01/10/2022 9:39 AM CDT Pulse 100 01/10/2022 8:53 AM CDT Temperature 36.4 C (97.5 F) 01/10/2022 8:53 AM CDT Respiratory Rate - - Oxygen Saturation 98% 01/10/2022 8:53 AM CDT Inhaled Oxygen Concentration - - Weight 91.6 kg (202 lb) 01/10/2022 8:53 AM CDT Height 147.3 cm (4' 10 ) 01/10/2022 8:53 AM CDT Body Mass Index 42.22 01/10/2022 8:53 AM CDT Plan of Treatment Health Maintenance Due Date Last Done Comments Colorectal Cancer Screening Colonoscopy (10 Years) 1953 Hepatitis C 1971 Mammogram Screening 1993 RSV Immunization or 60+ Years (1 - Risk 60-74 years 1-dose series) 2013 Zoster Vaccines (2 of 3) 01/10/2014 11/15/2013 Annual Medicare Wellness Visit 2018 Dexa Scan (General) 2018 DTaP, Tdap and Td Vaccines (2 - Td or Tdap) 10/01/2021 10/02/2011 COVID-19 Vaccine ( season) 2024 05/03/2021, 10/10/2020, 09/19/2020 Influenza Adult (#1) 2024 06/02/2019, 05/22/2018, 04/23/2017, Additional history exists Pneumococcal Vaccine: 65+ Years Completed 07/21/2020, 11/11/2014, 11/04/2014 Meningococcal B Vaccine Aged Out No l onger eligible based on patient's age to complete this topic Meningococcal Vaccine Aged Out No kyree gary eligible based on patient's age to complete this topic RSV Immunizations Under 20 Months Aged Out No longer eligible based on patient's age to complete this topic Insurance MEDICARE [facility] Care Teams Surgical Appliances Salesperson Relationship Specialty Start Date End Date Juana Nguyen MD [address], [facility] [place], [place] [address] PCP - General 06/26/14
--- OUTSIDE RECORDS SUMMARY | 2024-09-14 14:57 | XMS_ITS | CONTINUITY OF CARE DOCUMENT ---
Author Name catrinadavid catrinadavid Address Unknown Organization [facility] Address [address] [place] [address] Phone [phone] Care Team Providers Care Complex Human Resources Manager Name Role Phone Wilber ARNOLD, Chucho Unavailable [phone] Madai STORE OPERATIONS ASSOCIATE-BC, Dayanna Medina Unavailable Madai STORE OPERATIONS ASSOCIATE-BC, Dayanna Medina Unavailable PROBLEMS Condition Status Date Provider Notes Cardiology examination active Chucho farah MD Preoperative cardiovascular examination active Chucho Merino MD Cardiomegaly active Chucho Merino MD GERD (gastroesophageal reflux disease) active Chucho Merino MD Hypothyroidism active Chucho Merino MD Restless leg syndrome active Chucho Merino MD ENCOUNTERS Date Type Provider Location Encounter Diag nosis - In-person encounter Office Visit Chucho Merino MD [facility] Cardiology examinationPreoperative cardiovascular examinationCardiomegalyGERD (gastroesophageal reflux disease)HypothyroidismRestless leg syndrome VITAL SIGNS Date Observation Value Provider Body Mass Index (Ratio) 35.82 kg/m2 Ashleigh Wei height E&M 58 [in_i] Nina García blood pressure, diastolic 82 mm[Hg] St lizabeth García blood pressure, systolic 130 mm[Hg] Awais García oxygen saturation, oximetry 97 % Nina García respiratory rate E&M 16 /min Nina Hamilton sheila pulse rate 98 /min Nina García weight E&M 171.4 [lb_av] Nina García ALLERGIES Allergy Name Onset Date Reaction Criticality Status ADHESIVE TAPE High Criticality activ e LYRICA High Criticality active HISTORY OF MEDICATION USE Medication Status Instructions Dates Provider Indications Com ments bupropion HCl 150 mg tablet extended release 24 hr active Nina García duloxetine 60 mg capsule,delayed release(DR/EC) active Nina García Klor-Con M20 20 mEq tablet,ER particles/crystals active Nina García carbidopa-levodopa 25-100 mg tablet active Nina García levothyroxine 150 mcg tablet active Nina García ferrous sulfate 325 mg (65 mg iron) tablet active TAKE 1 TABLET BY MOUTH EVERY OTHER DAY Nina García hydrocodone-acetamino phen 7.5-325 mg tablet active TAKE 1 TABLET BY MOUTH FOUR TIMES A DAY DNF 06/26 Nina García albuterol sulfate 90 mcg/actuation HFA aerosol inhaler active INHALE 2 PUFFS BY MOUTH EVERY 4 HOURS NEEDED Nina García ergocalciferol (vitamin D2) 1,250 mcg (50,000 unit) capsule active TAKE 1 CAPSULE BY MOUTH ONE TIME PER WEEK Nina García montelukast 10 mg tablet active Nina García omeprazole 40 mg capsule,delayed release(DR/EC) active Nina García ropinirole 1 mg tablet active Nina García amoxicillin 500 mg capsule active Nina García fluticasone furoate unspecified unspecified active Nina García Loradamed 10 mg tablet active Nina García SOCIAL HISTORY Date Observation Value Provider social history E&M S moking History: P atjulianne has never smoked. Chucho Merino MD social history reviewed E&M revi ewed - no changes required Chucho Merino MD passive cigarette sm erica exposure no Nina García chewing tobacco use Never Nina Da vis smoking status Never smoker Nina García INSURANCE PROVIDERS Payer name Policy type / Coverage type [place] red republican ID AAR [email or web address] [id number] [place] MED[place] Medicare [id number] ADVANCE DIRECTIVES Name Date DISCUSSED - NO DECISION MADE TREATMENT PLAN Date Name Performer [id number],C, O n omeprazole Margaret Coronacan [id number],C, C ontinues on replacement therapy Margaret Coronacan [id number],C,S he had a chest x-ray at [facility] and was told her heart was enlarged. She had an echo done today. The left ventricular size and systolic function is normal. No wall motion abnormality noted. She is planned to undergo surgery which she can undergo at an acceptable risk. Chucho Merino MD [id number],C,S he had a chest x-ray at [facility] and was told her heart was enlarged. Chucho Merino MD [id number],C,S he had a chest x-ray at [facility] as preop for right ankle surgery. She denies any Sx of SOB or chest pain. The chest x-ray shows cardiomegaly. As part of risk assessment prior to surgery, an echo wll be done to assess wall motion and ejection fraction. Chucho Merino MD Cardiology: O n omeprazole Margaret Eriberto Cardiology: C ontinues on replacement therapy Margaret Wei Cardiology:She had a chest x-ray at [facility] and was told her heart was enlarged. She had an echo done today. The left ventricular size and systolic function is normal. No wall motion abnormality noted. She is planned to undergo surgery which she can undergo at an acceptable risk. Chucho Merino MD Cardiology:She had a chest x-ray at [facility] and was told her heart was enlarged. Chucho Merino MD Cardiology:She had a chest x-ray at [facility] as preop for right ankle surgery. She denies any Sx of SOB or chest pain. The chest x-ray shows cardiomegaly. As part of risk assessment prior to surgery, an echo wll be done to assess wall motion and ejection fraction. Chucho Merino MD Date Name Complete Echo HISTORY OF PROCEDURES Procedure Date Procedure Name Provider Procedure Notes S tatus EKG Chucho Merino MD complet ed
--- OUTSIDE RECORDS SUMMARY | 2024-09-14 14:57 | XMS_ITS ---
Author Organization [facility] Address [address] [place], [place] [id number] Care Team Providers Care National Stormwater Leader Name Role Phone JM ARMIJO Unavailable [phone] Dayanna Aj Unavailable Unavailable Allergies Allergen (clinical drug ingredient) Drug/Non Drug Allergy documented on EMR Reaction Allergy Type Onset Date Status Adhesive Unknown Allergy Active REASON FOR VISIT Having problems where she had previous surgery on right foot at different doctor Medications Medication SIG (Take, Route, Frequency, Duration) Notes Start Date End Date Status Omeprazole 40 MG Oral for 90 Days Active Montelukast Sodium 10 MG Oral for 90 Days Active Losartan Potassium 25 MG Oral for 90 Days Active Levothyroxine Sodium 100 MCG Oral for 90 Days Active Klor-Con M20 20 MEQ Oral for 90 Days Active Gabapentin 300 MG Oral for 90 Days Active Ferrous Sulfate 325 (65 Fe) MG TAKE 1 TABLET BY MOUTH EVERY OTHER DAY Oral for 90 Days Active DULoxetine HCl 60 MG Oral for 90 Days Active clonazePAM 0.5 MG Oral for 90 Days Active Carbidopa-Levodopa ER 50-200 MG TAKE 1 TABLET BY MOUTH EVERYDAY AT BEDTIME Oral for 90 Days Active buPROPion HCl ER (XL) 300 MG TAKE 1 TABL ET BY MOUTH EVERY MORNING Oral for 90 Days Active OXcarbazepine 150 MG TAKE 1 (ONE) TABLET BY MOUTH 2 TIMES DAILY Oral for 90 Days Active Vital Signs Height 58 in 07/15/2024 Weight 155 lbs 07/15/2024 BMI 32.39 kg/m2 07/15/2024 Height-cm 147.32 cm 07/15/2024 Weight-kg 70.31 kg 07/15/2024 Encounters Encounter Location Date Provider Diagnosis [facility] [address] [place], [place] [id number] 07/15/2024 JM ARMIJO Sprain of anterior talofibular ligament of right ankle, initial encounter S93.491A ; Primary osteoarthritis, right ankle and foot M19.071 ; Pain in left ankle and joints of left foot M25.572 and Left foot pain M79.672 Assessments Encounter Date Diagnosis (ICD Code) Assessment Notes Treatment Notes Treatment Clinical Notes Section Notes 07/15/2024 Sprain of anterior talofibular ligament of right ankle, initial encounter (ICD-10 - S93.491A) 07/15/2024 Primary osteoarthritis, right ankle and foot (ICD-10 - M19.071) 07/15/2024 Pain in left ankle and joints of left foot (ICD-10 - M25.572) 07/15/2024 Left foot pain (ICD-10 - M79.672) 07/15/2024 Other I told the pt that due to the severity of her injury I think this may be as good of a result as could be expected and that she may never be pain free. Offered to refer to someone to discuss revisional surgery but she declined. Plan Of Treatment Treatment Notes Assessment Notes Other I told the pt that d ue to the severity of her injury I think this may be as good of a result as could be expected and that she may never be pain free. Offered to refer to someone to discuss revisional surgery but she declined. Progress Notes * Roberta SHUKLAOB:1955 ([age] yo F)Acc No.[id number]:07/15/2024 Progress Notes Patient: Heather CAMPBELL Provider: Cyndi Armijo DPM :1955 A ge:69 Y S ex:Female Date:07/15/2024 Address:[facility] [address] [place], [id number] Subjective: * Chief Complaints: * H aving problems where she had previous surgery on right foot at different doctor * HPI: H PI: New Complaint P atient presents for a new patient consultation. Patient complains of an issue to her right ankle. She states she fell at home three years ago and fractured her ankle. She had surgery on it to repair it. She is still having a lot of pain in that ankle. She tried following up with the doctor that did the surgery, but he is no longer with the practice. Patient was injured at home. MA: sea. Three years ago she fell at home and suffered an trimalleolar fracture with complete dislocation of the talus. ORIF was done at the time and later underwent ankle fusion. She states she still has lingering pain all over the foot . * Medical History: * Surgical History: a nkle surgery spine surgery Knee Surgery Rotator Cuff Gall Bladder section tonsillectomy Tubal Ligation * Hospitalization/Major Diagno stic Procedure: * Family History: M other: lung disease. S ister: gout. * Medications: T akingbuPROPion HCl ER (XL) 300 MG Tablet Extended Release 24 Hour TAKE 1 TABLET BY MOUTH EVERY MORNING Oral Carbidopa-Levodopa ER 50-200 MG Tablet Extended Release TAKE 1 TABLET BY MOUTH EVERYDAY AT BEDTIME Oral clonazePAM 0.5 MG Tablet Oral DULoxetine HCl 60 MG Capsule Delayed Release Particles Oral Ferrous Sulfate 325 (65 Fe) MG Tablet TAKE 1 TABLET BY MOUTH EVERY OTHER DAY Oral Gabapentin 300 MG Capsule Oral Klor-Con M20 20 MEQ Tablet Extended Release Oral Levothyroxine Sodium 100 MCG Tablet Oral Losartan Potassium 25 MG Tablet Oral Montelukast Sodium 10 MG Tablet Oral Omeprazole 40 MG Capsule Delayed Release Oral OXcarbazepine 150 MG Tablet TAKE 1 (ONE) TABLET BY MOUTH 2 TIMES DAILY Oral Taking buPROPion HCl ER (XL) 300 MG Tablet Extended Release 24 Hour TAKE 1 TABLET BY MOUTH EVERY MORNING Oral Taking Carbidopa-Levodopa ER 50-200 MG Tablet Extended Release TAKE 1 TABLET BY MOUTH EVERYDAY AT BEDTIME Oral Taking clonazePAM 0.5 MG Tablet Oral Taking DULoxetine HCl 60 MG Capsule Delayed Release Particles Oral Taking Ferrous Sulfate 325 (65 Fe) MG Tablet TAKE 1 TABLET BY MOUTH EVERY OTHER DAY Oral Taking Gabapentin 300 MG Capsule Oral Taking Klor-Con M20 20 MEQ Tablet Extended Release Oral Taking Levothyroxine Sodium 100 MCG Tablet Oral Taking Losartan Potassium 25 MG Tablet Oral Taking Montelukast Sodium 10 MG Tablet Oral Taking Omeprazole 40 MG Capsule Delayed Release Oral Taking OXcarbazepine 150 MG Tablet TAKE 1 (ONE) TABLET BY MOUTH 2 TIMES DAILY Oral * Allergies: A dhesive Objective: * Vitals: S hoe Size: 8.5, Wt:155lbs, Wt-k.31 kg, Ht: 58 in, Ht-cm: 147.32 cm, BMI:32.39Index, Body Surface Area: 1.69. * Examination: C onstitutional: Constitutional T he patient is awake, alert, well developed, well groomed and well nourished. . D ermatologic: Skin findings: S kin is warm, dry, supple with no breaks in the skin. . Nail pathology: N ails 1-5 bilateral are normal in appearance and thickness. No discoloration. . Ulcer: T here is no evidence of ulceration noted at this time . Hyperkeratotic Skin Lesion T here is no evidence of hyperkeratosis . M usculoskeletal: Foot Structure T he foot structure is noted to be planus bilaterally. There is calcaneus valgus noted. On the left there is no ROM an the ankle or STJ..? Pain on palpation T here is no pain on palpation . Gait T here is an antalgic gait noted . ? N eurologic: Muscle power: 5 /5 bilaterally . Gross sensation G ross sensation is intact to light touch. . V ascular: Dorsalis pedis pulse: 2 /4 bilateral . Posterior tibial pulse: 2 /4 bilaterally . Capillary refill: l ess than 3 seconds bilaterally . Temperature gradient: w ithin normal limits . ? X -Ray: RIGHT FOOT M ultiple retained hardware. Incomplete fusion of the ankle and STJ.. RIGHT ANKLE M ultiple retained hardware. Incomplete fusion of the ankle and STJ.. Assessment: * Assessment: 1. S prain of anterior talofibular ligament of right ankle, initial encounter - S93.491A (Primary) 2 . P rimary osteoarthritis, right ankle and foot - M19.071 3 . P ain in left ankle and joints of left foot - M25.572 4 . L eft foot pain - M79.672 Plan: * Treatment: * Procedure Codes: 7 3610 X-RAY EXAM [place] ANKLE, [place]: [place] [address]479 X-RAY EXAM OF FOOT, Modifiers: LT * Billing Information: * Visit Code: 33523 Office Visit, New Pt., Level 3. * Procedure Codes: 47817 X-RAY [place]AM [place]: [place] [address]646 X-RAY EXAM OF FOOT. Modifiers: LT * AULIC GOVERNOR ASSEMBLER Sign off status: Completed true * Provider: Cyndi Armijo DPM Date: 1 09/15/2023 Generated for Shant alicea/Sabrina/Luzmariaitting on: 0 09/14/2024 02:56 PM HYDRAULIC GOVERNOR ASSEMBLER History and Physical Notes * HPI (History of Present Illness) Category Sub-Category Detail Notes Category Not es HPI New Complaint Patient presents for a new patient consultation. Patient complains of an issue to her right ankle. She states she fell at home three years ago and fractured her ankle. She had surgery on it to repair it. She is still having a lot of pain in that ankle. She tried following up with the doctor that did the surgery, but he is no longer with the practice. Patient was injured at home. MA: murray Three years ago she fell at home and suffered an trimalleolar fracture with complete dislocation of the talus. ORIF was done at the time and later underwent ankle fusion. She states she still has lingering pain all over the foot Examination Category Sub-Category Detail Notes Category Not es X-Ray RIGHT FOOT Multiple retaine d hardware. Incomplete fusion of the ankle and STJ. RIGHT ANKLE Multiple retained yeung rdware. Incomplete fusion of the ankle and STJ. Constitutional Constitutional The patient is a wake, alert, well developed, well groomed and well nourished. Dermatologic Skin findings: Skin is warm, dr y, supple with no breaks in the skin. Nail pathology: Nails 1-5 bilateral are normal in appearance and thickness. No discoloration. Ulcer: There is no evidence of ulceration noted at this time Hyperkeratotic Skin Lesion There is no e vidence of hyperkeratosis Musculoskeletal Pain on palpation There is no pain on palpation Foot Structure The foot structure i s noted to be planus bilaterally. There is calcaneus valgus noted. On the left there is no ROM an the ankle or STJ. Gait There is an antalgic gait noted Neurologic Muscle power: 5/5 bilaterally Gross sensation Gross sensation is i ntact to light touch. Vascular Dorsalis pedis pulse: 2/4 bilateral Posterior tibial pulse: 2/4 bilaterally Capillary refill: less than 3 seconds bilaterally Temperature gradient: within normal limi ts
--- OUTSIDE RECORDS SUMMARY | 2024-09-14 14:57 | XMS_ITS | Referral Summary ---
Author Organization [facility] Address [address] [place] [address] Care Team Providers Care Director Of In Service Education Name Role Phone Dayanna Aj KHARI-TOBACCO BLENDER Primary Care Provider Source Comments [facility],non-owned Affiliates and Associated Physician Practices is amultiple site organization consisting of ambulatory clinics and hospital sitesin [place], [place], [place] and [place]. This disclosure is being madepursuant to the Care Everywhere program and may not contain all information available regarding this patient. Last updated 18.[facility] Encounters Date Type Department Care Team Description 09/08/2024 4:10 PM INDUSTRIAL AERIAL INSTALLER Ancillary Procedure [facility] Orthopedics - Radiology [address] [place] [phone] Duncan Sharp DO Primary osteoarthritis of right ankle 09/08/2024 4:05 PM INDUSTRIAL AERIAL INSTALLER Ancillary Procedure [facility] Orthopedics - Radiology [address] [place] [phone] Duncan Sharp DO Primary osteoarthritis of right ankle 09/08/2024 3:20 PM INDUSTRIAL AERIAL INSTALLER Office Visit [facility] Orthopedics [address] [place] [phone] Duncan Sharp DO Nonunion of subtalar arthrodesis (Primary Dx); Primary osteoarthritis of right ankle; Retained orthopedic hardware 08/03/2024 Telephone [facility] [address] [place] [address] Parrish Booth MD Medication Problem 08/02/2024 Telephone [facility] [address] [place] [phone] Parrish Booth MD General 07/22/2024 Travel 07/22/2024 10:40 AM INDUSTRIAL AERIAL INSTALLER Office Visit [facility] [address] [place] [phone] Parrish Booth MD Allergic rhinitis, unspecified seasonality, unspecified trigger (Primary Dx); Vitamin D deficiency; Vitamin B12 deficiency; Acquired hypothyroidism; Folate deficiency; Iron deficiency; Copper deficiency; RLS (restless legs syndrome) 06/16/2024 Travel 06/16/2024 10:40 AM INDUSTRIAL AERIAL INSTALLER Office Visit [facility] [address] [place] [phone] Parrish Booth MD Iron deficiency (Primary Dx); Vitamin D deficiency; Uncomplicated asthma, unspecified asthma severity, unspecified whether persistent (HCC); Vitamin B12 deficiency; Essential hypertension from Last 3 Months Allergies Active Allergy Reactions Criticality Noted Date [...] mouth every 6 hours as needed Active [place]-3 Fatty Acids (fish oil) 1000 MG capsule [...] mouth once daily 10/31/2021 Active HYDROcodone-acetam inophen (Morrill) 7.5-325 MG tablet Take 1 (one) tablet by mouth every 6 hours as needed for Pain Active Klor-Con M20 20 MEQ tablet Take 1 (one) tablet by mouth once daily 02/05/2023 Active nystatin (Mycostatin) 300018 UNIT/GM cream 04/22/2023 Active amoxicillin (Amoxil) 500 MG capsule as needed 08/06/2023 Active benztropine (Cogentin) 1 MG tablet Take 1 (one) tablet by mouth once daily Active vitamin D, ergocalciferol, (Drisdol) 1.25 MG (77085 UT) capsule 10/09/2023 Active clonazePAM (KlonoPIN) 0.5 [...] sprayIndications:A llergic rhinitis, unspecified seasonality, unspecified trigger [place] 2 (two) sprays into each nostril once [...] (03/29/2018): Dyspepsia Syndesmotic disruption of right ankle Immunizations Name Administration Dates Next Due INFLUENZA VACCINE, TRIV. (AF LURIA, FLUZONE TRIVALENT; 6MO+) (IIV3) 07/04/2014,05/10/2013 COVID PFIZER 12+YR 30MCG/0.3mL 05/02/2023 COVID PFIZER BIVALENT 12Y+ 30mcg/0.3ML 04/16/2022 Covid Pfizer primary monoval ent 12+ yr 0.3mL Purple cap 05/03/2021,10/10/2020,09/19/2020 FLU VACCINE TRI IIV3 SPLIT I M (FLUVIRIN) 05/26/2013,05/15/2013 INFLUENZA [id number], HISTORIC VACCINE 05/04,05/20/2022,05/10/2021,2020 INFLUENZA VACCINE, ADJUVANTE D, [...] Zoster Hzv Vacc Recombinant Inj Im 07/01/2023, Social History Tobacco Use Types Packs/Day Years [...] Comments Blood Pressure 127/73 07/22/2024 10:37 AM INDUSTRIAL AERIAL INSTALLER Pulse 77 07/22/2024 10:37 AM INDUSTRIAL AERIAL INSTALLER Temperature 36.4 C (97.6 F) 05/10/2024 6:40 PM CDT Respiratory Rate 14 05/10/2024 7:00 PM CDT Oxygen Saturation 93% 05/10/2024 7:00 PM CDT Inhaled Oxygen Concentration - - Weight 73.5 kg (162 lb) 07/22/2024 10:37 AM INDUSTRIAL AERIAL INSTALLER Height 144.8 cm (4' 9 ) 07/22/2024 10:37 AM INDUSTRIAL AERIAL INSTALLER Body Mass Index 35.06 07/22/2024 10:37 AM INDUSTRIAL AERIAL INSTALLER Functional Status Functional Status Response Date of Assess ment Is person deaf or have serious hearing difficult y? No 05/10/2024 Is person blind or have serious difficulty seein g? No 05/10/2024 Does person have serious dif ficulty walking/climbing stairs? No 05/10/2024 Does person have difficulty dressing/bathing? No 05/10/2024 Does person have difficulty doing errands alone? No 05/10/2024 Cognitive Status Response Date of Assessm ent Does person have difficulty concentrating/remembering/making decisions? No 05/10/2024 Plan of Treatment Upcoming Encounters Date Type Department Care Team (Late st Contact Info) Description 10/06/2024 3:00 PM INDUSTRIAL AERIAL INSTALLER Office Visit [facility] Health Orthopedics [address] [place] [address] Duncan Sharp DO [facility] [address] [phone] 10/25/2024 1:00 PM CDT Office Visit [facility] [address] [place] [phone] [place] [address] [place] [address] [address] DIV OF PULMONARY/[place] [address] 11/17/2024 1:00 PM CDT Office Visit [facility] [address] [facility] [place] [phone] Katie Augustin APRN-CNP [address] [facility] [address]L [place] [address] Goals Goal Patient Goal Type Associated Problems Recent Progress Patient-Stated? Author Mobility General No Bryanna Henning, RN Note: Expected end date: 3 months The goal is to maintain or improve your mobility at the optimum level for you. Interventions: Will be NWB RLE, participate with PT per facility. Medical Devices Implanted Type Area Tenter Feeder Device Identifier Shelf Expiration Date Model / Serial / Lot Mri Unsafe Moreira Neuro Stimulator Neuro Stimulator [id number] / / Description:per manual MRI u nsafe 3.5 Mm Lateral Distal Fibula Plate Implanted:Qt y: 1 on 09/22/2021 by Gonzales Rey, DO at [facility] Plate Right: Ankle [employer] [id number] / / Screw 3.5mm 14mm Slf-Tap Cortx Evos Strl Implanted:Qt y: 4 on 09/22/2021 by Gonzales Rey, DO at [facility] Screw Right: Ankle [employer] [id number] / / Screw 3.5mm 48mm Slf-Tap Cortx Evos Strl Implanted:Qt y: 1 on 09/22/2021 by Gonzales Rey, DO at [facility] Screw Right: Ankle [employer] [id number] / / Screw 3.5mm 55mm Slf-Tap Cortx Evos Strl Implanted:Qt y: 1 on 09/22/2021 by Gonzales Rey, DO at [facility] Screw Right: Ankle [employer] [id number] / / Fully Threaded 4.7 Mm Osteopenia Screw Implanted:Qt y: 1 on 09/22/2021 by Gonzales Rey, DO at [facility] Screw Right: Ankle [employer] [id number] / / 3.5 Mm Locking Screw Implanted:Qt y: 1 on 09/22/2021 by Gonzales Rey, DO at [facility] Screw Right: Ankle [employer] [id number] / / Kit Bngf 3cc Aug Inj Implanted:Qt y: 1 on 10/14/2022 by Amy Mondragon MD at [facility] Right: Ankle [employer] 05/03/2023 [id number] / / [id number] Kit Bngf 3cc Aug Inj Implanted:Qt y: 1 on 10/14/2022 by Amy Mondragon MD at [facility] Right: Ankle [employer] 05/03/2023 [id number] / / [id number] Graft Bone Canc 4-9.5mm 15cc Frzdr Chp Implanted:Qt y: 1 on 10/14/2022 by Amy Mondragon MD at [facility] Right: Ankle [employer] 08/19/2026 [id number] / / [id number] Right Small Nail Implanted:Qt y: 1 on 10/14/2022 by Amy Mondragon MD at [facility] Right: Ankle [employer] 05/20/2030 [id number] / / [id number] Screw 5mm 25mm Valor Ti Hindfoot Fsn Sys Implanted:Qt y: 1 on 10/14/2022 by Amy Mondragon MD at [facility] Right: Ankle [employer] 07/16/2030 [id number] / / [id number] Screw 5mm 30mm Valor Ti Hindfoot Fsn Sys Implanted:Qt y: 1 on 10/14/2022 by Amy Mondragon MD at [facility] Right: Ankle [employer] 08/23/2030 [id number] / / [id number] 5x40mm Screw Implanted:Qt y: 1 on 10/14/2022 by Amy Mondragon MD at [facility] Right: Ankle [employer] [id number] 07/16/2030 [id number] / / [id number] 5x70mm Screw Implanted:Qt y: 1 on 10/14/2022 by Amy Mondragon MD at [facility] Right: Ankle [employer] [id number] 01/16/2030 [id number] / / [id number] Screw 3.5mm 18mm T10 Ft Strdr Nonster Implanted:Qt y: 1 on 10/14/2022 by Amy Mondragon MD at [facility] Right: Ankle [employer] [id number] / / Screw 3.5mm 50mm T10 Ft Strdr Nonster Implanted:Qt y: 1 on 10/14/2022 by Amy Mondragon MD at [facility] Right: Ankle [employer] [id number] / / Graft Bone Ignite Dbm 20ml Pwr Mx Inj - [id number] Implanted:Qt y: 1 on 10/14/2022 by Amy Mondragon MD at [facility] Right: Ankle [employer] 03/18/2026 [id number] / [id number] / Lead Nrstm Inspr 3 Eltrd Cuf Tnl Pelon - [id number] Implanted:Qt y: 1 on 05/10/2024 by Sriram Simon MD at [facility] Right: Neck [employer] [id number] 06/29/2026 [id number] / [id number] / Lead Ns Resp - [id number] Implanted:Qt y: 1 on 05/10/2024 by Sriram Simon MD at [facility] Right: Chest [employer] [id number] 09/15/2026 [id number] / [id number] / Gntr Nrstm - [id number] Implanted:Qt y: 1 on 05/10/2024 by Sriram Simon MD at [facility] Right: Chest [employer] [id number] 07/14/2026 3028 / [id number] / Explanted Type Area Tenter Feeder Device Identifier Shelf Expiration Date Model / Serial / Lot Fully Threaded 4.7 Mm Osteopenia Screw Explanted:Qty: 1 on 09/22/2021 by Gonzales Rey DO at [facility] Screw Right: Ankle [employer] [id number] / / Wire K 1.6mm 150mm Troc Pnt Ss Fx Strl Explanted:Qty: 2 on 09/22/2021 by Gonzales Rey DO at [facility] Wire Right: Ankle [employer] [id number] / / Procedures Procedure Name Priority Date/Time Associated Diagnosis Comments XR CALCANEUS RIGHT 1VW Routine 09/08/2024 4:05 PM INDUSTRIAL AERIAL INSTALLER Primary osteoarthritis of right ankle XR ANKLE RIGHT 3VW OR MORE Routine 09/08/2024 4:04 PM INDUSTRIAL AERIAL INSTALLER Primary osteoarthritis of right ankle BASIC METABOLIC PANEL (CALCIUM TOTAL) STAT 03/17/2024 10:43 AM CDT [place]STA (obstructive sleep apnea) from Last 3 Months or Most Recently Relevant to Health Maintenance Results * XR Calcaneus Right 1Vw (09/08/2024 4:05 PM INDUSTRIAL AERIAL INSTALLER) [facility]ative [facility] 09/08/[facility]24 4:05 PM INDUSTRIAL AERIAL INSTALLER For details of this study, please see the providers note. Duncan Sharp DO DIAGNOSTIC IMAGING O RDERABLES Performing Organization Address [facility] Co de Phone Number SCMPRAD * XR Ankle Right 3Vw or More (09/08/2024 4:04 PM INDUSTRIAL AERIAL INSTALLER) Narrative [facility] - 09/08/2024 4:05 PM INDUSTRIAL AERIAL INSTALLER For details of this study, please see the providers note. Duncan Sharp DO DIAGNOSTIC IMAGING O SKYE Performing Organization Address [facility] Co de Phone Number SCMPRAD * (ABNORMAL) BASIC METABOLIC PANEL (CALCIUM TOTAL) (03/17/2024 10:43 AM CDT) BUN 21 7 - 26 mg/dL 03/17/2024 11:21 AM [facility] Creatinine 0.56 0.56 - 0.96 mg/dL 03/17/2024 11:21 AM [facility] Sodium 138 136 - 145 mmol/L 03/17/2024 11:21 AM [facility] Potassium 4.3 3.5 - 4.5 mmol/L 03/17/2024 11:21 AM [facility] Chloride 104 98 - 107 mmol/L 03/17/2024 11:21 AM [facility] CO2 26 22 - 29 mmol/L 03/17/2024 11:21 AM [facility] Glucose 99 70 - 115 mg/dL 03/17/2024 11:21 AM [facility] Calcium 9.4 8.4 - 10.2 mg/dL 03/17/2024 11:21 AM [facility] Anion Gap 8 6 - 16 03/17/2024 11:21 AM [facility] BUN/Creatinine Ratio 38(H) 7 - 23 03/17/2024 11:21 AM [facility] Osmolality Calculated 289 275 - 295 mOsm/kg 03/17/2024 11:21 AM [facility] eGFR by CKD-EPI >90 >=90 mL/min/1.7 3 m2 03/17/2024 11:21 AM [facility] Blood BLOOD SPECIMEN / Unknown Line Draw / Unknown 03/17/2024 10:43 AM CDT 03/17/2024 10:49 AM T Sriram Simon MD LAB - CHEMISTRY O RDERABLES [facility] [address] [place] [address], [facility] [phone] from Last 3 Months or Most Recently Relevant to Health Maintenance Advance Directives * Full Code (Latest Code Status on File) Date Activated Date Inactivated Comments 10/14/2022 12:56 PM 10/15/2022 3:28 PM * Full Code Date Activated Date Inactivated Comments 09/21/2021 11:17 AM 09/25/2021 3:39 PM Care Teams Director Of In Service Education Relationship Specialty Start Date End Date Dayanna Aj, SHIPPING AND RECEIVING SPECIALIST-TOBACCO BLENDER [address] [place] [phone] PCP - General Nurse Practitioner Family 10/08/23
--- OUTSIDE RECORDS SUMMARY | 2024-09-14 14:57 | XMS_ITS | Data Portability ---
Author Organization [facility], Main Office Address [address] [place] [address] Assessment Encounter Date Assessment Date Assessment LastModified by Organization Details LastModified Time 01/17/2023 01/17/2023 discussed getting shingles and td vaccine. Not available 01/17/2023 14:30:58 08/15/2023 08/15/2023 discussed getting shingles and td vaccine. Not available 08/15/2023 12:18:19 Plan of Treatment Reminders Order Date Submit Date Provider Last Modified By Organization Details Last Modified Time Details Appointments None recorded. Lab lipid panel, serum [address] (Admitting), [address] [place] [address] [address], [place], [address], 3 08:00:10 TSH, serum, reflex free T4 2022 023 [facility] (Lab), [address] [place] [address], [address], 3 12:25:39 Referral None recorded. Procedures None recorded. Surgeries None recorded. Imaging MAMMO, screening, digital, bilateral 2022 023 [email or web address] [id number] Not available 3 09:06:22 bone density 2022 023 Not available 3 08:57:14 Medication Orders albuterol sulfate HFA 90 mcg/actuati on aerosol inhaler 2023 024 [id number], [address], [place], [address], 4 12:54:52 bupropion HCl XL 300 mg 24 hr tablet, extended release 2023 024 [id number], [address], [place], [place], [id number], 4 12:54:56 Klor-Con M20 mEq tablet,exte nded release 2023 024 [id number], [address], [place], [address], 4 12:54:52 duloxetine 60 mg capsule,del ayed release 2023 024 [id number], [address], [place], [address], 4 12:54:52 Patient TargetsNo targets recorded. Patient Instructions Encounter Date Encounter Id Patient Instructions Last Modified By Organization Details Last Modified Time 01/17/2023 [id number] fu in 6 mo for check up 30 min Not available 01/17/2023 16:05:19 08/15/2023 [id number] Fu with new pcp in 1-3 mo. 08/15/23 pt aware of samira departure Not available 08/15/2023 12:19:03 Reason for Referral None Reported. Results Created Date Observation Date Name Description Value Unit Range Abnormal Flag Note LastModifiedBy Organization Detail LastModifiedTime 08/22/1908/22/2022 imagi ng/di agnos tic resul t No observ ation record ed. [id number] [facility] [address], [place], [address], 10/02/2022 07:01:19 11/17/19 23 11/16/2022 CT, brain , w/o contr ast No observ ation record ed. [facility] [address], [place], [address], 11/28/2022 15:21:30 11/20/19 23 11/17/2022 iain nuous EEG monit oring , profe sugey al compo nent; 12-26 hrs, with VEEG (PROC ) No observ ation record ed. [facility] [address], [place], [address], 11/28/2022 15:21:29 02/15/20 23 lipid panel , serum [facility] [address] [place] [address] Patien t Name: ALISA SHUKLA ion #: [id number] Sex: F : 1954 2 Dictat ed By: Baldomero trevino Attend ing Physic kain: SAMM HOGAN [facility] Physic kain: SAMIRA KEMP Exam Date: 2022 13:43 PM Exam Name: XR DEXA AXIAL/ HIP/PE LVIS/S PINE Admitt ing Diagno sis(es ): CLINIC AL HISTOR Y: Postme nopaus al screen ing for osteop orosis . TECHNI QUE: The study was perfor med using a [employer] Unit. Left proxim al femora l and [...] at 2022 08:03: 02 AM Page [address] (Imaging) [address] [place], [address], 02/21/2023 08:00:10 02/15/20 23 02/13/2023 bone densi ty No observ ation record ed. [address] [place], [address], 02/18/2023 15:08:12 02/15/20 23 MAMMO , scree michael, digit al, bilat eral [facility] [address] [place] [address] [phone] Patien t Name: ALISA SHUKLA Access ion #: [id number] Sex: F : 1954 2 Dictat ed By: Baldomero trevino Attend ing Physic kain: SAMM HOGAN [facility] Physic kain: SAMIRA KEMP Exam Date: 2022 [...] at 2022 08:11: 43 AM Page 1 [facility] (Imaging) [address] [place], [address], 02/18/2023 15:08:13 03/07/20 23 03/07/2023 US, luis t, [facility] [address] [place] [address] Patien t Name: ALISA SHUKLA ion #: [id number] Sex: F : 1954 7 Dictat [...] at 2022 14:21: 10 PM Page [address] (Imaging) [address] [place], [address], 03/12/2023 15:17:05 03/07/20 23 03/07/2023 TSH, serum , refle x free T4 [facility] [address] [place] [address] [phone] Patien t Name: ALISA SHUKLA ion #: [id number] Sex: F : 1954 7 Dictat [...] at 2022 14:21: 10 PM Page [address] (Imaging) [address] [place], [address], 04/11/2023 07:57:39 Result Notes None recorded. Problems Name Problem SNOMED Code Status Onset Date Resolution Date Notes Provider Name and Address Organization Details Recorded Time Excessive cerumen in ear canal 278907215 Completed Not Available [facility] 3 06:57:57 Lumbar radiculop athy 818139951 Active Not Available [facility] 4 07:02:59 Folliculi tis 79941862 Completed Not Available [facility] 3 06:57:57 Pain of right ankle joint 96421580311 280560 Active 3 Not Available [facility] 4 07:02:59 Otalgia 73910046 Completed Not Available [facility] 3 06:57:57 Pain in throat 025895102 Active 2018 Not Available [facility] 4 07:02:59 Asthma 343446767 Active 2017 Not Available [facility] 4 07:02:59 Skin tag 727079358 Completed Not Available [facility] 3 06:57:57 Gastroeso phageal reflux disease 398775414 Active Not Available [facility] 4 07:02:59 Edema 921612916 Completed Not Available [facility] 3 06:57:58 Vaginal discharge 974719063 Active 2017 Not Available [facility] 4 07:02:59 Leukocyte s in urine 966336894 Completed Not Available [facility] 3 06:57:58 Pain in left lower limb 678312386 Completed Not Available [facility] 3 06:57:58 Periphera l nerve disease 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 Active Not Available [facility] 4 07:02:59 Knee pain Active Not Available [facility] 4 07:02:59 Osteopeni a 490824712 Active 2017 Not Available [facility] 4 07:02:59 Vaginal dryness 87522456 Active Not Available [facility] 4 07:02:59 Restless legs 67370383 Active Not Available [facility] 4 07:02:59 Vitamin D deficienc y 48536785 Active Not Available [facility] 4 07:02:59 Depressiv e disorder 64974159 Active Not Available [facility] 4 07:02:59 Migraine 66361200 Active Not Available [facility] 4 07:02:59 Hypertens nupur disorder 83348434 Active Not Available [facility] 4 07:02:59 Hypothyro idism 95974548 Active Not Available [facility] 4 07:02:59 Psoas syndrome 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 Active Not Available [facility] 4 07:02:59 Periodic limb movement disorder 893444283 Active 2020 Not Available [facility] 4 07:02:59 History of polyp of colon 549522395 Active Not Available [facility] 4 07:02:59 Acute urinary tract infection 373956217 Completed Not Available [facility] 3 06:57:59 Hypokalem ia 76162287 Active 2017 Not Available [facility] 4 07:02:59 Abnormal cervical Papanicol aou smear 141228193 Completed Not Available [facility] 3 06:57:59 Seasonal allergy 056133809 Active Not Available [facility] 4 07:02:59 Anxiety 72176150 Active Not Available [facility] 4 07:02:59 Hip pain 79381589 Active Not Available [facility] 4 07:02:59 Dysuria 26254551 Active 2020 Not Available [facility] 4 07:02:59 Sinus headache 4503877 Completed Not Available [facility] 3 06:58:00 Cough 56909844 Completed Not Available [facility] 3 06:58:00 Hyperlipi demia 89461487 Active Not Available [facility] 4 07:02:59 Essential hypertens ion 09208555 Active 2017 Not Available [facility] 4 07:02:59 Allergic rhinitis 88285757 Active 2018 Not Available [facility] 4 07:02:59 Urinary tract infectiou s disease 77450368 Completed Not Available [facility] 3 06:58:00 Sleep apnea 48742263 Active Not Available [facility] 4 07:02:59 Posterior rhinorrhe a 24350032 Active Not Available [facility] 4 07:02:59 Postmenop ausal state 48956213 Active 2017 Not Available [facility] 4 07:02:59 Greater trochante marian pain syndrome 8215278 Active Not Available [facility] 4 07:02:59 Hypersomn ia 68757218 Active 2020 Not Available [facility] 4 07:03:00 Obstructi ve sleep apnea syndrome 17342286 Active 2020 Not Available [facility] 4 07:03:00 Congestio n of nasal sinus 93063630 Active 2021 Not Available [facility] 4 07:03:00 Chronic pain 47643466 Active Not Available [facility] 4 07:03:00 Fatigue 88922465 Active 2020 Not Available [facility] 4 07:03:00 Hemifacia l spasm 43357692 Active 2022 Not Available [facility] 4 07:02:59 Iron deficienc y anemia 42536810 Active 2022 Not Available [facility] 4 07:03:00 Mammograp hy abnormal 870124524 Active 2022 Not Available [facility] 4 07:02:59 Candidias is of skin 08614838 Active 2022 Not Available [facility] 4 07:02:59 Problem Notes None recorded. Procedures Surgical History Date Name Laterality Status Provider Name and Address Organization Details Recorded Time 02/14/20 23 Most Recent Bone Density completed Dayanna Hogan NP [address], [place], [address], [facility] [employer] [facility] 02/16/2023 22:03:01 02/14/20 23 Most Recent Mammogram completed Dayanna Hogan NP [address], [place], [address], [facility] [employer] [facility] 02/16/2023 22:05:06 09/22/19 22 Ankle Surgery completed Not Available [facility] 10/02/2022 06:55:00 03/04/20 21 Date of Last Colonoscopy completed Dayanna Manzano RN [facility] [employer] [facility] 11/28/2022 14:59:31 section completed Not Available [facility] 10/02/2022 06:55:00 Tonsillectomy completed Not Available [facility] 10/02/2022 06:55:00 Back Surgery completed Not Available [facility] 10/02/2022 06:55:00 procedure on knee completed Not Available [facility] 10/02/2022 06:55:00 Cholecystectomy completed Not Available [facility] 10/02/2022 06:55:00 Colonoscopy completed Not Available [facility] 10/02/2022 06:55:00 Imaging Results Imaging Date Name Status LastModified by Organization Details LastModified Time 08/22/2022 imaging/diagnost ic result completed [id number] [facility] [address] [facility] [address], [place], [address], 10/02/2022 07:01:19 11/16/2022 CT, brain, w/o contrast completed [address], [address], 11/28/2022 15:21:30 11/17/2022 continuous EEG monitoring, professional component; 12-26 hrs, with VEEG (PROC) completed [address], [address], 11/28/2022 15:21:29 02/14/2023 lipid panel, serum completed [address] (Imaging) [address] [place], [address], 02/21/2023 08:00:10 02/13/2023 bone density completed [address] [place], [address], 02/18/2023 15:08:12 02/14/2023 MAMMO, screening, digital, bilateral completed [address] (Imaging) [address] [place], [address], 02/18/2023 15:08:13 03/07/2023 US, breast, unilateral completed [address] (Imaging) [address] [place], [address], 03/12/2023 15:17:05 03/07/2023 TSH, serum, reflex free T4 completed [address] (Imaging) [address] [place], [address], 04/11/2023 07:57:39 Procedure Notes None recorded. Medical Equipment None Reported. Allergies Allergen ID Allergen Name Allergen Category Reaction Reaction Severity Criticality Documentation Date Start Date Code Code System Note Provider Name and Address Organization Details Recorded Time 59494 Lyrica medicatio n edema Not available Not available 10/02/2022 20753 1 RxNorm Not Available [facility] 3 07:01:13 11513 adhesive tape environme nt,medica tion swelling Not available Not available 10/02/2022 82034 UNK Not Available [facility] 3 07:01:13 94531 Ativan medicatio n Not available Not available Not available 11/28/2022 23561 9 RxNorm Dayanna Manzano RN null, [place] [employer] [facility] 3 14:49:18 Medications Name Sig Start Date [...] completed Patient wants to go back to [facility]. Not Available Not Available Not Available azithromy [...] Not Available Not Available Not Available Afluria 3074-0754 45 mcg (15 mcg x 3)/0.5 mL [...] Available Not Available No t Available Afluria 6386-2267 (PF) 45 mcg (15 mcg x 3)/0.5 mL intramusc ular syringe TO BE ADMINIST ERED BY PHARMACI ST FOR IMMUNIZA TION active Not Available Not Available No t Available Flucelvax Quad 4334-3607 (PF) 60 mcg (15 mcg x 4)/0.5 [...] Date Recorded Body mass index (BMI) Body mass index (BMI) Body height Body height Oxygen saturation Oxygen saturation in Arterial blood by Pulse oximetry Oxygen saturation Oxygen saturation in Arterial blood by Pulse oximetry Heart rate Heart rate Respiratory rate Body temperature Body temperature Body weight Body weight Systolic blood pressure Diastolic blood pressure Systolic blood pressure Diastolic blood pressure Provider Name and Address Organization Details Last Updated DateTime 3 34.8 kg/m2 34.3 kg/m2 147.32 cm 147.32 cm 97 % 97 % 93 % 93 % 82 /min 60 /min 16 /min 97.7 [degF] 96.8 [degF] 87158.7 7 g 74273.1 5 g 117 mm[Hg] 78 mm[Hg] 128 mm[Hg] 70 mm[Hg] Not Available [facility] 3 06:56:57 Date Recorded Body height Body mass index (BMI) Body weight Body temperature Heart rate Respiratory rate Oxygen saturation Oxygen saturation in Arterial blood by Pulse oximetry Pain severity - 0-10 verbal numeric rating [Score] - Reported Systolic blood pressure Diastolic blood pressure Provider Name and Address Organization Details Last Updated DateTime 3 147.32 cm 30.3 kg/m2 95526.8 9 g 98 [degF] 74 /min 16 /min 97 % 97 % 0 110 mm[Hg] 80 mm[Hg] ARELY Wilhelm [facility] 3 14:57:01 Date Recorded Body height Body mass index (BMI) Body weight Body temperature Heart rate Oxygen saturation Oxygen saturation in Arterial blood by Pulse oximetry Pain severity - 0-10 verbal numeric rating [Score] - Reported Systolic blood pressure Diastolic blood pressure Provider Name and Address Organization Details Last Updated DateTime 3 147.32 cm 29.3 kg/m2 61026.9 3 g 95.9 [degF] 79 /min 96 % 96 % 0 128 mm[Hg] 80 mm[Hg] ARELY Wilhelm [facility] 3 14:07:08 Date Recorded Body height Body mass index (BMI) Body weight Body temperature Heart rate Respiratory rate Oxygen saturation Oxygen saturation in Arterial blood by Pulse oximetry Pain severity - 0-10 verbal numeric rating [Score] - Reported Systolic blood pressure Diastolic blood pressure Provider Name and Address Organization Details Last Updated DateTime 4 147.32 cm 30.6 kg/m2 17919.9 4 g 97.4 [degF] 67 /min 20 /min 98 % 98 % 0 160 mm[Hg] 100 mm[Hg] Dayanna Manzano RN [place] [employer] 4 12:13:02 Social History Question Answer Notes LastModified by Organizat ion Details LastModified Time Tobacco Smoking Status Never Smoker Not Available [facility] 10/02/2022 06:54:52 Do You Have An Advance Directive? No Packet [id number] Information not available 10/02/2022 What Is Your Level Of Alcohol Consumption? None MIGRATION.88922 97510 Information not available 10/02/2022 Are You Blind Or Do You Have Difficulty Seeing? No MIGRATION.85352 46429 Information not available 10/02/2022 Is Blood Transfusion Acceptable In An Emergency? Yes Information not available 11/28/2022 What Is Your Level Of Caffeine Consumption? Heavy MIGRATION.77350 22412 Information not available 10/02/2022 How Much Tobacco Do You Chew? None MIGRATION.85782 12927 Information not available 10/02/2022 What Is Your Code Status? Full Code [email or web address] Information not available 11/28/2022 In The 14 Days Before Symptom Onset, Have You Had Close Contact With A Laboratory-confi rmed COVID-19 While That Case Was Ill? No MIGRATION.25759 16044 Information not available 10/02/2022 In The 14 Days Before Symptom Onset, Have You Had Close Contact With A Person Who Is Under Investigation For COVID-19 While That Person Was Ill? No MIGRATION.13759 64979 Information not available 10/02/2022 Are You Deaf Or Do You Have Serious Difficulty Hearing? No MIGRATION.36968 40500 Information not available 10/02/2022 What Type Of Diet Are You Following? REGULAR MIGRATION.26308 84022 Information not available 10/02/2022 Which Illicit Or Recreational Drugs Have You Used? None MIGRATION.52936 82542 Information not available 10/02/2022 Do You Or Have You Ever Used E-cigarettes Or Vape? Never Used Electronic Cigarettes MIGRATION.71145 72792 Information not available 10/02/2022 What Is Your Occupation? Retired MIGRATION.78390 82603 Information not available 10/02/2022 Have There Been Any Changes To Your Family Or Social Situation? No MIGRATION.07189 32016 Information not available 10/02/2022 Do You Use Insect Repellent Routinely? No MIGRATION.54078 37789 Information not available 10/02/2022 Where Do You Live? [facility] MIGRATION.79523 90264 Information not available 10/02/2022 Do You Have A Medical Power Of [place]? No MIGRATION.25160 70273 Information not available 10/02/2022 What Was The Date Of Your Most Recent Tobacco Screening? 01/23/2021 MIGRATION.36095 44748 Information not available 10/02/2022 Do You Have Any Pets? Yes MIGRATION.73762 48247 Information not available 10/02/2022 What Is Your Relationship Status? MIGRATION.74454 87234 Information not available 10/02/2022 Do You Use Your Seat Belt Or Car Seat Routinely? Yes MIGRATION.05143 73772 Information not available 10/02/2022 Do You Have Smoke And Carbon Monoxide Detectors In Your Home? Yes MIGRATION.80040 95901 Information not available 10/02/2022 Do You Or Have You Ever Used Smokeless Tobacco? Never Used Smokeless Tobacco MIGRATION.68360 68338 Information not available 10/02/2022 Are There Any Smokers In Your House? No Information not available 11/28/2022 How Much Tobacco Do You Smoke? No MIGRATION.09752 89227 Information not available 10/02/2022 Do You Participate In Social Media? Yes MIGRATION.94618 65900 Information not available 10/02/2022 Do You Feel Stressed (tense, Restless, Nervous, Or Anxious, Or Unable To Sleep At Night)? [id number] MIGRATION.19193 35418 Information not available 10/02/2022 Do You Use Sunscreen Routinely? No MIGRATION.95684 73387 Information not available 10/02/2022 Have You Recently Traveled Abroad? No MIGRATION.41756 06844 Information not available 10/02/2022 Sex: Female Functional Status Question Answer Note LastModified by Organizat ion Details LastModified Time Do you have difficulty walking or climbing stairs? Yes MIGRATION.[id number] 26 Information not available 10/02/2022 Do you have transportation difficulties? No MIGRATION.81792988 26 Information not available 10/02/2022 Are you able to walk? NODEP Information not available 11/28/2022 Do you have difficulty doing errands alone? Yes Information not available 11/28/2022 Are you able to care for yourself? Yes MIGRATION.10388130 26 Information not available 10/02/2022 Do you have difficulty dressing or bathing? No MIGRATION.99816935 26 Information not available 10/02/2022 What is your exercise level? None MIGRATION.00009656 26 Information not available 10/02/2022 Mental Status Question Answer Note LastModified by Organizat ion Details LastModified Time Do you have difficulty concentrating, remembering or making decisions? Yes MIGRATION.[id number] 6 Information not available 10/02/2022 Family History Relationship Description Onset Age of this Age Resolved Age Notes LastModified by Organization Details LastModified Time Mother Family history of breast cancer gene BRCA mutation MIGRATION.860 [id number] Not available 10/02/2022 06:55:01 Paternal Grandfather Malignant tumor of colon MIGRATION.505 [id number] Not available 10/02/2022 06:55:01 Paternal Grandmother Malignant tumor of colon MIGRATION.054 [id number] Not available 10/02/2022 06:55:01 Medical History Condition Response SLEEP APNEA Y HYPERTHYROIDISM Y DEPRESSION (INCLUDING POST ) Y MIGRAINES Y GERD/NAUSEA Y HYPERTENSION Y ANXIETY DISORDER Y Gynecological History Statement/Question Response If Post Menopausal, Age at Menopause 49 Date of Last Colonoscopy 03/04/2021 Most Recent Mammogram 02/13/2023 Most Recent Bone Density 02/13/2023 Obstetrics History GPAL:G 2 P 0 0 0 0 Immunizations Vaccine Type Date Status Note Provider Nam e and Address Organization Details Recorded Time Tdap 3 completed Not Available [facility] 08/27/2023 07:03:00 RSV, recombinant, protein subunit RSVpreF, adjuvant reconstituted, 0.5 mL, PF 3 completed Not Available [facility] 08/27/2023 07:03:00 SARS-COV-2 (COVID-19) vaccine, UNSPECIFIED 1 completed Not Available [facility] 08/27/2023 07:03:00 Influenza, high-dose, quadrivalent, PF 2 completed Not Available [facility] 08/27/2023 07:03:00 Influenza, high-dose, quadrivalent, PF 1 completed Not Available [facility] 08/27/2023 07:03:00 COVID-19 Non-US Vaccine, Product Unknown 1 completed Not Available [facility] 08/27/2023 07:03:00 SARS-COV-2 (COVID-19) vaccine, UNSPECIFIED 1 completed Not Available [facility] 08/27/2023 07:03:00 pneumococcal polysaccharide PPV23 0 completed Not Available [facility] 08/27/2023 07:03:00 Influenza, high-dose, trivalent, PF 8 completed Not Available [facility] 08/27/2023 07:03:00 Pneumococcal conjugate PCV 13 5 completed Not Available [facility] 08/27/2023 07:03:00 Influenza, split virus, trivalent, preservative 3 completed Not Available [facility] 08/27/2023 07:03:00 Tdap 2 completed Not Available [facility] 08/27/2023 07:03:00 Influenza, split virus, quadrivalent, PF 6 completed Not Available [facility] 08/27/2023 07:03:00 Pneumococcal conjugate PCV 13 5 completed Not Available [facility] 08/27/2023 07:03:00 Influenza, split virus, trivalent, preservative 4 completed Not Available [facility] 08/27/2023 07:03:00 Influenza, split virus, quadrivalent, preservative 5 completed Not Available [facility] 08/27/2023 07:03:00 zoster live 4 completed Not Available [facility] 08/27/2023 07:03:00 Past Encounters Encounter ID Performer Location Encounter Start Date Encounter Closed Date Diagnosis/Indication Diagnosis SNOMED-CT Code Diagnosis ICD10 Code Diagnosis Note [id number] [place] [facility] [place] [address] [place] [address] 11/09/2020 00:00:00 11/10/2020 18:43:13 [id number] _ATHENA_M IGRATION_ DEFAULT_1 _1 , 01/03/2021 00:00:00 01/03/2021 15:41:39 [id number] [facility] [place] [address] [place] [address] 01/23/2021 00:00:00 01/23/2021 19:30:45 [id number] [facility] [place] [address] [facility] [place] [address] 03/05/2021 00:00:00 03/05/2021 11:47:09 [id number] [facility] [place] [address] [facility] [place] [address] 05/11/2021 00:00:00 05/11/2021 17:50:50 [id number] [facility] [place] [address] [facility] [place] [address] 06/19/2021 00:00:00 06/19/2021 19:33:00 [id number] [facility] [place] [address] [place] [address] 06/21/2021 00:00:00 06/21/2021 16:57:17 [id number] [facility] [place] [address] [place] [address] 07/23/2021 00:00:00 07/23/2021 13:47:23 [id number] [facility] [place] [address] [facility] [place] [address] 08/15/2021 00:00:00 08/15/2021 16:27:16 [id number] [facility] [place] [address] [facility] [place] [address] 09/07/2021 00:00:00 09/07/2021 12:57:10 [id number] [facility] [place] [address] [place] [address] 10/10/2021 00:00:00 10/10/2021 12:23:16 [id number] [facility] [place] [address] [place] [address] 11/07/2021 00:00:00 11/07/2021 16:01:42 [id number] [facility] [place] [address] [place] [address] 11/14/2021 00:00:00 11/14/2021 15:15:31 [id number] [facility] [place] [address] [place] [address] 01/17/2022 00:00:00 01/18/2022 17:48:51 [id number] [facility] [place] [address] [place] [address] 02/19/2022 00:00:00 02/19/2022 16:22:11 [id number] [facility] [place] [address] [place] [address] 04/02/2022 00:00:00 04/02/2022 15:56:46 [id number] [facility] [place] [address] [place] [address] 06/06/2022 00:00:00 06/06/2022 17:39:31 [id number] [facility] [place] [address] [place] [address] 08/16/2022 00:00:00 08/16/2022 12:19:29 [id number] [facility] [place] [address] [place] [address] 09/20/2022 00:00:00 09/20/2022 11:04:09 [id number] [facility] [place] [address] [place] [address] 10/01/2022 00:00:00 10/01/2022 15:54:32 [id number] Dayanna Hogan NP [address] [address] 11/28/2022 14:39:09 11/28/2022 15:53:35 Hemifacial spasm [id number] G51.[address] Foreman and will be seeing Dr. Tyler at [facility] for movement disorder clinic .No change in current meds. [id number] Dayanna Hogan NP [address] [address] 01/17/2023 13:56:27 01/17/2023 16:20:21 Asthma [id number] J45.909 Albuterol HFA Hypothyroidism 02203061 E03.9 Levothyrox ine 150 mcg po daily. Hyperlipidemia 36159160 E78.5 low fat diet. Gastroesop hageal reflux disease 582571554 K21.9 stable Restless legs 07181990 G 25.81 ropinirole 0.25 mg po nightly. Depressive disorder 3548 9007 F32.9 Bupropion HCL SR 150 mg po bid.duloxe naren 60 mg po daily. Iron defic iency anemia 52990507 D50.9 ferrous sulfate 325 mg po daily. Allergic rhinitis 140529 04 J30.9 montelukas t 10 mgLoratadi ne 10 mg. Screening for malignant neoplasm of breast 953871044 Z12.39 mammogram ordered 01/17/23 Postmenopausal state 764 75675 Z78.0 Dexa ordered 01/17/23 [id number] Dayanna Hogan NP [address] [address] 08/15/2023 11:47:05 08/15/2023 16:16:52 Asthma 683275699 J45.909 Albuterol HFA Hypothyroidism 19619157 E03.9 Levothyrox ine 125 mcg po daily to levothyrox ine 100 mcg po daily.TSh not existent. Reduced levothyrox ine. new dose sent. Labs in 8 weeks.Chol esterol controlled . 07/14/23 new orders due before refill. Currently on levothyrox ine 100 mcg po daily.07/04 11/24 TSh low. Reduce to levothyrox ine 88 mcg po daily. Hyperlipidemia 61449618 E78.5 low fat diet. Essential hypertension 03102388 I10 monitor prn Gastroesop hageal reflux disease 019172830 K21.9 stable Restless legs 38864732 G 25.81 ropinirole 0.25 mg po nightly. Depressive disorder 3548 9007 F32.9 Bupropion HCL SR 150 mg po bid. Try for bupropion HCL XL 300 mg po daily for cost savings.du loxetine 60 mg po daily. Iron defic iency anemia 96752102 D50.9 ferrous sulfate 325 mg po daily. Allergic rhinitis 683293 04 J30.9 montelukas t 10 mgLoratadi ne 10 mg. 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 Hypokalemia 99775571 E87 .6 Health Concerns Section Related Observation LastModified by Organization Detai ls LastModified Time None Recorded Concern Status LastModified by Organization Details LastModified Time None Recorded Advance Directives Directive N: Packet Payers Encounter Date Sequence Insurance Name Policy Number Policy Luna Covered Member ID Luna Member ID Guarantor Name 11/28/2022 1 [place] Alisa Chamorro Pipes [id number] Alisa Chamorro Pipes 11/28/2022 2 [facility] OPTIONS (MEDICARE SUPPLEMENT) Alisa M Pipes [id number] Alisa M Pipes 01/17/2023 1 [place] Alisa M Pipes [id number] Alisa M Pipes 01/17/2023 2 [facility] OPTIONS (MEDICARE SUPPLEMENT) Alisa Ashtyn Pipes [id number] Alisa M Pipes 08/15/2023 1 [place] Alisa M Pipes [id number] Alisa M Pipes 08/15/2023 2 [facility] OPTIONS (MEDICARE SUPPLEMENT) Alisa Ashtyn Pipes [id number] Alisa Ashtyn Pipes Notes Date Note Type Note Provider [...] give her relief from legs being restless. [facility] notes not received previous were brought to office today and scanned into [facility]. Will be seeing sleep specialist Dr. Kumari December 23, 2022. Was seeing jennie chatterjee salesperson flowers before but Dr. Foreman suggested a MD may give more options.Pt has RLS.Will be seeing movement specialist at [facility] Dr Tyler January 2023. Dayanna Hogan NP [address], [place], [address], [employer] 11/28/2022 15:52:38 01/17/2023 text/html Here for check [...] out. On walker. Dayanna Hogan NP [address], [place], [address], [employer] 01/17/2023 16:06:43 08/15/2023 text/html Here for check u p. Asthma- stableThyroid- no complaintslipid- trying to eat well.htn- Home bp doing well.Gerd- stableRLS- still feeling daria all the time as well as whole body.Depression- Stable on cymbalta and bupropion. Clonazepam added (to help claustrophobia with CPAP), Oxcarbazepine (for trigeminal neuralgia), and upped dose of carbidopa/levodopa. Per neurology.Was seeing Dr. Foreman. Dayanna Hogan, RENEA [address] [facility] [place] [address], [place], [address], [place] [facility] 08/15/2023 17:01:26 OBGyn Episode No OBEpisode recorded.
--- OUTSIDE RECORDS SUMMARY | 2024-09-14 14:57 | XMS_ITS | Patient Health Record ---
Author Organization [facility] Address [address] [place], [place] [id number] Care Team Providers Care Finance Executive Name Role Phone JM FAIRCHILD Unavailable [phone] Dayanna Aj Unavailable Unavailable Allergies Allergen (clinical drug ingredient) Drug/Non Drug Allergy documented on EMR Reaction Allergy Type Onset Date Status Adhesive Unknown Allergy Active Reason For Referral No Information Medications Medication SIG (Take, Route, Frequency, Duration) Notes Start Date End Date Status buPROPion HCl ER (XL) 300 MG TAKE 1 TABL ET BY MOUTH EVERY MORNING Oral for 90 Days Active Omeprazole 40 MG Oral for 90 Days [...] AT BEDTIME Oral for 90 Days Active OXcarbazepine 150 MG TAKE 1 (ONE) TABLET BY MOUTH 2 TIMES DAILY Oral for 90 Days Active Vital Signs Height-cm 147.32 cm 07/15/2024 Weight-kg 70.31 kg 07/15/2024 Height 58 in 07/15/2024 Weight 155 lbs 07/15/2024 BMI 32.39 kg/m2 07/15/2024 Encounters Encounter Location Date Provider Diagnosis [facility] [place] [address] [place], [place] [id number] 07/15/2024 JM FAIRCHILD Sprain of anterior talofibular ligament of right ankle, initial encounter S93.491A ; Primary osteoarthritis, right ankle and foot M19.071 ; Pain in left ankle and joints of left foot M25.572 and Left foot pain M79.672 Assessments Encounter Date Diagnosis (ICD Code) Assessment Notes Treatment Notes Treatment Clinical Notes Section Notes 07/15/2024 Primary osteoarthritis, right ankle and foot (ICD-10 - M19.071) 07/15/2024 Sprain of anterior talofibular ligament of right ankle, initial encounter (ICD-10 - S93.491A) 07/15/2024 Pain in left ankle and joints [...] surgery but she declined. Plan Of Treatment No Information Insurance Providers Payer Name Payer Address Payer Phone Subscriber Number Group Number Insured Name Patient Relationship to Insured Coverage Start Date Coverage End Date Medicare Part B [place] [address] [place] [address] [id number] Gayla Heather Self - patient is the insured 8 [facility] Medicare Supplement [address] [place], [place] [phone] [id number] Gayla Heather Self - patient is the insured 8 Medical (General) History Medical History History ICD Code acid reflux artificial joint neuropathy hepatitis GERD Leg/Feet cramps Arthritis Sleep apnea Thyroid Disease Back Trouble Psychiatric Disorder hypertension restless leg syndrome Surgical History Surgery Date(Month/Year) ankle surgery spine surgery Knee Surgery Rotator Cuff Gall Bladder section tonsillectomy Tubal Ligation
== END 2024-09-14 14:01 | disposition home or self-care (01) ==
PROVIDERS: PCP Nurse Practitioner Family
DX: M96.0 Pseudarthrosis after fusion or arthrodesis (principal); M19.071 Primary osteoarthritis, right ankle and foot; Z96.9 Presence of functional implant, unspecified
CPT/HCPCS: 73700

== ENCOUNTER 2024-10-25 08:11 | Outpatient (CLI) | payer MEDICARE, SELFPAY ==
--- NOTE | ~2024-10-25 | CT_ITS ---
EXAMINATION: CT abdomen pelvis w con DATE: 10/25/2024 08:33 INDICATION: Right lower quadrant abdominal pain. TECHNIQUE: Computed tomography (CT) of the abdomen and pelvis was performed with 100 mL Omnipaque 350 intravenous contrast. Automated exposure control and iterative reconstruction technique were employe d. The dose-length product was 640.50 mGy-cm. COMPARISON: None. FINDINGS: The visualized portions of lung bases demonstrate mild atelectasis. No pleural effusion. Ca rdiomegaly is noted. No pericardial effusion. The liver is normal. There are changes of cholecystecto my. The spleen, pancreas, and adrenal glands are normal. There is cortical thinning of the kidneys. T here are no dilated loops of bowel. The appendix is normal. There are no pathologically enlarged lymp h nodes. There is no free intraperitoneal fluid. There is severe thoracic and lumbar spondylosis. The re are changes of anterior fusion procedures at L4-L5 and L5-S1 and posterior fusion procedure at L4- L5. There are epidural electrodes in thoracic spine. IMPRESSION: 1. No etiology for the patient's symptoms. Reviewed, dictated and finalized at location A.
--- OUTSIDE RECORDS SUMMARY | 2024-10-25 08:28 | XMS_ITS | Data Portability ---
Author Organization [facility], Main Office Address [address] [place] [address] Assessment Encounter Date Assessment Date Assessment LastModified by Organization Details LastModified Time 01/17/2023 01/17/2023 discussed getting shingles and td vaccine. Not available 01/17/2023 14:30:58 08/15/2023 08/15/2023 discussed getting shingles and td vaccine. Not available 08/15/2023 12:18:19 Plan of Treatment Reminders Order Date Submit Date Provider Last Modified By Organization Details Last Modified Time Details Appointments None recorded. Lab lipid panel, serum [address] (Admitting), [address] [place] [address] [address], [place], [address], 3 08:00:10 TSH, serum, reflex free T4 2022 023 [facility] (Lab), [address] [place] [address], [address], 3 12:25:39 Referral None recorded. Procedures None recorded. Surgeries None recorded. Imaging MAMMO, screening, digital, bilateral 2022 023 [email or web address] [id number] Not available 3 09:06:22 bone density 2022 023 Not available 3 08:57:14 Medication Orders albuterol sulfate HFA 90 mcg/actuati on aerosol inhaler 2023 024 [id number], [address], [place], [address], 4 12:54:52 bupropion HCl XL 300 mg 24 hr tablet, extended release 2023 024 [id number], [address], [place], [place], [id number], 4 12:54:56 Klor-Con M20 mEq tablet,exte nded release 2023 024 [id number], [address], [place], [address], 4 12:54:52 duloxetine 60 mg capsule,del ayed release 2023 024 [id number], [address], [place], [address], 4 12:54:52 Patient TargetsNo targets recorded. Patient Instructions Encounter Date Encounter Id Patient Instructions Last Modified By Organization Details Last Modified Time 01/17/2023 [id number] fu in 6 mo for check up 30 min Not available 01/17/2023 16:05:19 08/15/2023 [id number] Fu with new pcp in 1-3 mo. 08/15/23 pt aware of samira departure Not available 08/15/2023 12:19:03 Reason for Referral None Reported. Results Created Date Observation Date Name Description Value Unit Range Abnormal Flag Note LastModifiedBy Organization Detail LastModifiedTime 08/22/1908/22/2022 imagi ng/di agnos tic resul t No observ ation record ed. [id number] [facility] [address], [place], [address], 10/02/2022 07:01:19 11/17/19 23 11/16/2022 CT, brain , w/o contr ast No observ ation record ed. [facility] [address], [place], [address], 11/28/2022 15:21:30 11/20/19 23 11/17/2022 iain nuous EEG monit oring , profe sugey al compo nent; 12-26 hrs, with VEEG (PROC ) No observ ation record ed. [facility] [address], [place], [address], 11/28/2022 15:21:29 02/15/20 23 lipid panel , serum [facility] [address] [place] [address] Patien t Name: ALISA GONZALEZ ion #: [id number] Sex: F : 1954 2 Dictat ed By: Baldomero trevino Attend ing Physic kain: SAMM HOGAN [facility] Physic kain: SAMIRA KEMP Exam Date: 2022 13:43 PM Exam Name: XR DEXA AXIAL/ HIP/PE LVIS/S PINE Admitt ing Diagno sis(es ): CLINIC AL HISTOR Y: Postme nopaus al screen ing for osteop orosis . TECHNI QUE: The study was perfor med using a Home Inventory S[pecialists Unit. Left proxim al femora l and [...] 2022 08:03: 02 AM Page [address] (Imaging) [address] [place], [address], 02/21/2023 08:00:10 02/15/20 23 02/13/2023 bone densi ty No observ ation record ed. [address] [place], [address], 02/18/2023 15:08:12 02/15/20 23 MAMMO , scree michael, digit al, bilat eral [facility] [address] [place] [address] [phone] Patien t Name: ALISA GONZALEZ Access ion #: [id number] Sex: F : 1954 2 Dictat ed By: Baldomero trevino Attend ing Physic kain: SAMM HOGAN [facility] Physic kain: SAMIRA KEMP Exam Date: [...] at 2022 08:11: 43 AM Page 1 [facility] (Imaging) [address] [place], [address], 02/18/2023 15:08:13 03/07/20 23 03/07/2023 US, luis t, [facility] [address] [place] [address] Patien t Name: ALISA GONZALEZ ion #: [id number] Sex: F : 1954 7 Dictat ed By: Bertin Patton Attend ing Physic kani: SAMM HOGAN Orderi Physic kain: SAMM HOGAN [...] 2022 14:21: 10 PM Page [address] (Imaging) [address] [place], [address], 03/12/2023 15:17:05 03/07/20 23 03/07/2023 TSH, serum , refle x free T4 [facility] [address] [place] [address] [phone] Patien t Name: ALISA GONZALEZ ion #: [id number] Sex: F : 1954 7 Dictat [...] 2022 14:21: 10 PM Page [address] (Imaging) [address] [place], [address], 04/11/2023 07:57:39 Result Notes None recorded. Problems Name Problem SNOMED Code Status Onset Date Resolution Date Notes Provider Name and Address Organization Details Recorded Time Excessive cerumen in ear canal 603446658 Completed Not Available [facility] 3 06:57:57 Lumbar radiculop athy 526203929 Active Not Available [facility] 4 07:02:59 Folliculi tis 55613433 Completed Not Available [facility] 3 06:57:57 Pain of right ankle joint 13586704772 573746 Active 3 Not Available [facility] 4 07:02:59 Otalgia 46935164 Completed Not Available [facility] 3 06:57:57 Pain in throat 002976303 Active 2018 Not Available [facility] 4 07:02:59 Asthma 029017237 Active 2017 Not Available [facility] 4 07:02:59 Skin tag 405539261 Completed Not Available [facility] 3 06:57:57 Gastroeso phageal reflux disease 312317376 Active Not Available [facility] 4 07:02:59 Edema 364635608 Completed Not Available [facility] 3 06:57:58 Vaginal discharge 652120118 Active 2017 Not Available [facility] 4 07:02:59 Leukocyte s in urine 375948810 Completed Not Available [facility] 3 06:57:58 Pain in left lower limb 527521098 Completed Not Available [facility] 3 06:57:58 Periphera l nerve disease 646133150 Active Not Available [facility] 4 07:02:59 Knee pain Active Not Available [facility] 4 07:02:59 Osteopeni a 430648858 Active 2017 Not Available [facility] 4 07:02:59 Vaginal dryness 38784048 Active Not Available [facility] 4 07:02:59 Restless legs 89625934 Active Not Available [facility] 4 07:02:59 Vitamin D deficienc y 65607760 Active Not Available [facility] 4 07:02:59 Depressiv e disorder 93125391 Active Not Available [facility] 4 07:02:59 Migraine 15567297 Active Not Available [facility] 4 07:02:59 Hypertens nupur disorder 08336415 Active Not Available [facility] 4 07:02:59 Hypothyro idism 30071427 Active Not Available [facility] 4 07:02:59 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 Not Available [facility] 4 07:02:59 Periodic limb movement disorder 042881336 Active 2020 Not Available [facility] 4 07:02:59 History of polyp of colon 598835440 Active Not Available [facility] 4 07:02:59 Acute urinary tract infection 062936460 Completed Not Available [facility] 3 06:57:59 Hypokalem ia 90652205 Active 2017 Not Available [facility] 4 07:02:59 Abnormal cervical Papanicol aou smear 126915978 Completed Not Available [facility] 3 06:57:59 Seasonal allergy 711553906 Active Not Available [facility] 4 07:02:59 Anxiety 12397270 Active Not Available [facility] 4 07:02:59 Hip pain 38188848 Active Not Available [facility] 4 07:02:59 Dysuria 37160923 Active 2020 Not Available [facility] 4 07:02:59 Sinus headache 0230886 Completed Not Available [facility] 3 06:58:00 Cough 48516643 Completed Not Available [facility] 3 06:58:00 Hyperlipi demia 91477010 Active Not Available [facility] 4 07:02:59 Essential hypertens ion 55834146 Active 2017 Not Available [facility] 4 07:02:59 Allergic rhinitis 91381281 Active 2018 Not Available [facility] 4 07:02:59 Urinary tract infectiou s disease 78568078 Completed Not Available [facility] 3 06:58:00 Sleep apnea 96830024 Active Not Available [facility] 4 07:02:59 Posterior rhinorrhe a 95019948 Active Not Available [facility] 4 07:02:59 Postmenop ausal state 98448777 Active 2017 Not Available [facility] 4 07:02:59 Greater trochante marian pain syndrome 9627395 Active Not Available [facility] 4 07:02:59 Hypersomn ia 77144498 Active 2020 Not Available [facility] 4 07:03:00 Obstructi ve sleep apnea syndrome 40378302 Active 2020 Not Available [facility] 4 07:03:00 Congestio n of nasal sinus 33849675 Active 2021 Not Available [facility] 4 07:03:00 Chronic pain 45637672 Active Not Available [facility] 4 07:03:00 Fatigue 30722438 Active 2020 Not Available [facility] 4 07:03:00 Hemifacia l spasm 62866958 Active 2022 Not Available [facility] 4 07:02:59 Iron deficienc y anemia 28366457 Active 2022 Not Available [facility] 4 07:03:00 Mammograp hy abnormal 393554495 Active 2022 Not Available [facility] 4 07:02:59 Candidias is of skin 24051456 Active 2022 Not Available [facility] 4 07:02:59 Problem Notes None recorded. Procedures Surgical History Date Name Laterality Status Provider Name and Address Organization Details Recorded Time 02/14/20 23 Most Recent Bone Density completed Dayanna Hogan NP [address], [place], [address], [facility] [employer] [facility] 02/16/2023 22:03:01 02/14/20 23 Most Recent Mammogram completed Dayanna Hogan NP [address], [place], [address], [facility] [employer] [facility] 02/16/2023 22:05:06 09/22/19 22 Ankle Surgery completed Not Available [facility] 10/02/2022 06:55:00 03/04/20 21 Date of Last Colonoscopy completed Dayanna Manzano RN [facility] [employer] [facility] 11/28/2022 14:59:31 section completed Not Available [facility] 10/02/2022 06:55:00 Tonsillectomy completed Not Available [facility] 10/02/2022 06:55:00 Back Surgery completed Not Available [facility] 10/02/2022 06:55:00 procedure on knee completed Not Available [facility] 10/02/2022 06:55:00 Cholecystectomy completed Not Available [facility] 10/02/2022 06:55:00 Colonoscopy completed Not Available [facility] 10/02/2022 06:55:00 Imaging Results Imaging Date Name Status LastModified by Organization Details LastModified Time 08/22/2022 imaging/diagnost ic result completed [id number] [facility] [address] [facility] [address], [place], [address], 10/02/2022 07:01:19 11/16/2022 CT, brain, w/o contrast completed [address], [address], 11/28/2022 15:21:30 11/17/2022 continuous EEG monitoring, professional component; 12-26 hrs, with VEEG (PROC) completed [address], [address], 11/28/2022 15:21:29 02/14/2023 lipid panel, serum completed [address] (Imaging) [address] [place], [address], 02/21/2023 08:00:10 02/13/2023 bone density completed [address] [place], [address], 02/18/2023 15:08:12 02/14/2023 MAMMO, screening, digital, bilateral completed [address] (Imaging) [address] [place], [address], 02/18/2023 15:08:13 03/07/2023 US, breast, unilateral completed [address] (Imaging) [address] [place], [address], 03/12/2023 15:17:05 03/07/2023 TSH, serum, reflex free T4 completed [address] (Imaging) [address] [place], [address], 04/11/2023 07:57:39 Procedure Notes None recorded. Medical Equipment None Reported. Allergies Allergen ID Allergen Name Allergen Category Reaction Reaction Severity Criticality Documentation Date Start Date Code Code System Note Provider Name and Address Organization Details Recorded Time 57414 Lyrica medicatio n edema Not available Not available 10/02/2022 21986 1 RxNorm Not Available [facility] 3 07:01:13 89087 adhesive tape environme nt,medica tion swelling Not available Not available 10/02/2022 50634 UNK Not Available [facility] 3 07:01:13 15777 Ativan medicatio n Not available Not available Not available 11/28/2022 49512 9 RxNorm Dayanna Manzano RN null, [place] [employer] [facility] 3 14:49:18 Medications Name Sig Start Date [...] completed Patient wants to go back to [facility]. Not Available Not Available Not Available azithromy [...] Not Available Not Available Not Available Afluria 3692-1923 45 mcg (15 mcg x 3)/0.5 mL [...] Available Not Available No t Available Afluria 2651-0355 (PF) 45 mcg (15 mcg x 3)/0.5 mL intramusc ular syringe TO BE ADMINIST ERED BY PHARMACI ST FOR IMMUNIZA TION active Not Available Not Available No t Available Flucelvax Quad 6448-0924 (PF) 60 mcg (15 mcg x 4)/0.5 [...] % 82 /min 16 /min 97.7 [degF] 39026.7 7 g 117 mm[Hg] 78 mm[Hg] Not Available [facility] 3 06:56:57 Date Recorded Body mass index (BMI) Body height Oxygen saturation Oxygen saturation in Arterial blood by Pulse oximetry Heart rate Body temperature Body weight Systolic blood pressure Diastolic blood pressure Provider Name and Address Organization Details Last Updated DateTime 3 34.3 kg/m2 147.32 cm 93 % 93 % 60 /min 96.8 [degF] 44274.1 5 g 128 mm[Hg] 70 mm[Hg] Not Available [facility] 3 06:56:57 Date Recorded Body height Body mass index (BMI) Body weight Body temperature Heart rate Respiratory rate Oxygen saturation Oxygen saturation in Arterial blood by Pulse oximetry Pain severity - 0-10 verbal numeric rating [Score] - Reported Systolic blood pressure Diastolic blood pressure Provider Name and Address Organization Details Last Updated DateTime 3 147.32 cm 30.3 kg/m2 44829.8 9 g 98 [degF] 74 /min 16 /min 97 % 97 % 0 110 mm[Hg] 80 mm[Hg] ARELY Wilhelm [facility] [employer] 3 14:57:01 Date Recorded Body height Body mass index (BMI) Body weight Body temperature Heart rate Oxygen saturation Oxygen saturation in Arterial blood by Pulse oximetry Pain severity - 0-10 verbal numeric rating [Score] - Reported Systolic blood pressure Diastolic blood pressure Provider Name and Address Organization Details Last Updated DateTime 3 147.32 cm 29.3 kg/m2 08749.9 3 g 95.9 [degF] 79 /min 96 % 96 % 0 128 mm[Hg] 80 mm[Hg] ARELY Wilhelm [facility] [employer] 3 14:07:08 Date Recorded Body height Body mass index (BMI) Body weight Body temperature Heart rate Respiratory rate Oxygen saturation Oxygen saturation in Arterial blood by Pulse oximetry Pain severity - 0-10 verbal numeric rating [Score] - Reported Systolic blood pressure Diastolic blood pressure Provider Name and Address Organization Details Last Updated DateTime 4 147.32 cm 30.6 kg/m2 79270.9 4 g 97.4 [degF] 67 /min 20 /min 98 % 98 % 0 160 mm[Hg] 100 mm[Hg] Dayanna Manzano RN [place] [facility] [employer] [facility] 4 12:13:02 Social History Question Answer Notes LastModified by Organizat ion Details LastModified Time Tobacco Smoking Status Never Smoker Not Available [facility] 10/02/2022 06:54:52 Do You Have An Advance Directive? No Packet MIGRATION.32526 72063 Information not available 10/02/2022 What Is Your Level Of Alcohol Consumption? None MIGRATION.27303 64932 Information not available 10/02/2022 Are You Blind Or Do You Have Difficulty Seeing? No MIGRATION.41697 94206 Information not available 10/02/2022 Is Blood Transfusion Acceptable In An Emergency? Yes Information not available 11/28/2022 What Is Your Level Of Caffeine Consumption? Heavy MIGRATION.75999 06453 Information not available 10/02/2022 How Much Tobacco Do You Chew? None MIGRATION.55593 52139 Information not available 10/02/2022 What Is Your Code Status? Full Code Information not available 11/28/2022 In The 14 Days Before Symptom Onset, Have You Had Close Contact With A Laboratory-confi rmed COVID-19 While That Case Was Ill? No MIGRATION.80283 75533 Information not available 10/02/2022 In The 14 Days Before Symptom Onset, Have You Had Close Contact With A Person Who Is Under Investigation For COVID-19 While That Person Was Ill? No MIGRATION.65465 34514 Information not available 10/02/2022 Are You Deaf Or Do You Have Serious Difficulty Hearing? No MIGRATION.95958 01650 Information not available 10/02/2022 What Type Of Diet Are You Following? REGULAR MIGRATION.34866 62320 Information not available 10/02/2022 Which Illicit Or Recreational Drugs Have You Used? None MIGRATION.15711 61485 Information not available 10/02/2022 Do You Or Have You Ever Used E-cigarettes Or Vape? Never Used Electronic Cigarettes MIGRATION.74572 25560 Information not available 10/02/2022 What Is Your Occupation? Retired MIGRATION.72681 29981 Information not available 10/02/2022 Have There Been Any Changes To Your Family Or Social Situation? No MIGRATION.05139 20583 Information not available 10/02/2022 Do You Use Insect Repellent Routinely? No MIGRATION.36125 13806 Information not available 10/02/2022 Where Do You Live? [facility] MIGRATION.44480 25767 Information not available 10/02/2022 Do You Have A Medical Power Of Manager [employer]? No MIGRATION.05619 09816 Information not available 10/02/2022 What Was The Date Of Your Most Recent Tobacco Screening? 01/23/2021 MIGRATION.25131 85424 Information not available 10/02/2022 Do You Have Any Pets? Yes MIGRATION.76577 17270 Information not available 10/02/2022 What Is Your Relationship Status? MIGRATION.08485 63466 Information not available 10/02/2022 Do You Use Your Seat Belt Or Car Seat Routinely? Yes MIGRATION.19620 60809 Information not available 10/02/2022 Do You Have Smoke And Carbon Monoxide Detectors In Your Home? Yes MIGRATION.24822 66382 Information not available 10/02/2022 Do You Or Have You Ever Used Smokeless Tobacco? Never Used Smokeless Tobacco MIGRATION.45489 93813 Information not available 10/02/2022 Are There Any Smokers In Your House? No Information not available 11/28/2022 How Much Tobacco Do You Smoke? No MIGRATION.53381 36715 Information not available 10/02/2022 Do You Participate In Social Media? Yes MIGRATION.30932 89113 Information not available 10/02/2022 Do You Feel Stressed (tense, Restless, Nervous, Or Anxious, Or Unable To Sleep At Night)? [id number] MIGRATION.41817 94650 Information not available 10/02/2022 Do You Use Sunscreen Routinely? No MIGRATION.25459 19010 Information not available 10/02/2022 Have You Recently Traveled Abroad? No MIGRATION.95538 39943 Information not available 10/02/2022 Sex: Female Functional Status Question Answer Note LastModified by Organizat ion Details LastModified Time Do you have difficulty walking or climbing stairs? Yes MIGRATION.45258904 26 Information not available 10/02/2022 Do you have transportation difficulties? No MIGRATION.34085429 26 Information not available 10/02/2022 Are you able to walk? NODEP Information not available 11/28/2022 Do you have difficulty doing errands alone? Yes Information not available 11/28/2022 Are you able to care for yourself? Yes MIGRATION.61318037 26 Information not available 10/02/2022 Do you have difficulty dressing or bathing? No MIGRATION.36958527 26 Information not available 10/02/2022 What is your exercise level? None MIGRATION.91353668 26 Information not available 10/02/2022 Mental Status Question Answer Note LastModified by Organizat ion Details LastModified Time Do you have difficulty concentrating, remembering or making decisions? Yes MIGRATION.692285112 6 Information not available 10/02/2022 Family History Relationship Description Onset Age of this Age Resolved Age Notes LastModified by Organization Details LastModified Time Mother Family history of breast cancer gene BRCA mutation MIGRATION.974 [id number] Not available 10/02/2022 06:55:01 Paternal Grandfather Malignant tumor of colon MIGRATION.182 [id number] Not available 10/02/2022 06:55:01 Paternal Grandmother Malignant tumor of colon MIGRATION.953 4248205 Not available 10/02/2022 06:55:01 Medical History Condition [...] Recorded Time Tdap 3 completed Not Available [facility] 08/27/2023 07:03:00 RSV, recombinant, protein subunit RSVpreF, adjuvant reconstituted, 0.5 mL, PF 3 completed Not Available [facility] 08/27/2023 07:03:00 SARS-COV-2 (COVID-19) vaccine, UNSPECIFIED 1 completed Not Available [facility] 08/27/2023 07:03:00 Influenza, high-dose, quadrivalent, PF 2 completed Not Available [facility] 08/27/2023 07:03:00 Influenza, high-dose, quadrivalent, PF 1 completed Not Available [facility] 08/27/2023 07:03:00 COVID-19 Non-US Vaccine, Product Unknown 1 completed Not Available [facility] 08/27/2023 07:03:00 SARS-COV-2 (COVID-19) vaccine, UNSPECIFIED 1 completed Not Available [facility] 08/27/2023 07:03:00 pneumococcal polysaccharide PPV23 0 completed Not Available [facility] 08/27/2023 07:03:00 Influenza, high-dose, trivalent, PF 8 completed Not Available [facility] 08/27/2023 07:03:00 Pneumococcal conjugate PCV 13 5 completed Not Available [facility] 08/27/2023 07:03:00 Influenza, split virus, trivalent, preservative 3 completed Not Available [facility] 08/27/2023 07:03:00 Tdap 2 completed Not Available [facility] 08/27/2023 07:03:00 Influenza, split virus, quadrivalent, PF 6 completed Not Available [facility] 08/27/2023 07:03:00 Pneumococcal conjugate PCV 13 5 completed Not Available [facility] 08/27/2023 07:03:00 Influenza, split virus, trivalent, preservative 4 completed Not Available [facility] 08/27/2023 07:03:00 Influenza, split virus, quadrivalent, preservative 5 completed Not Available [facility] 08/27/2023 07:03:00 zoster live 4 completed Not Available [facility] 08/27/2023 07:03:00 Past Encounters Encounter ID Performer Location Encounter Start Date Encounter Closed Date Diagnosis/Indication Diagnosis SNOMED-CT Code Diagnosis ICD10 Code Diagnosis Note [id number] [facility] [address] [place] [facility] [place] [address] 11/09/2020 00:00:00 11/10/2020 18:43:13 [id number] _ATHENA_M IGRATION_ DEFAULT_1 _1 , 01/03/2021 00:00:00 01/03/2021 15:41:39 [id number] [facility] [address] [place] [address] 01/23/2021 00:00:00 01/23/2021 19:30:45 [id number] [facility] [address] [place] [address] 03/05/2021 00:00:00 03/05/2021 11:47:09 [id number] [facility] [address] [facility] [place] [address] 05/11/2021 00:00:00 05/11/2021 17:50:50 [id number] [facility] [address] [place] [address] 06/19/2021 00:00:00 06/19/2021 19:33:00 [id number] [facility] [address] [place] [address] 06/21/2021 00:00:00 06/21/2021 16:57:17 [id number] [facility] [address] [place] [address] 07/23/2021 00:00:00 07/23/2021 13:47:23 [id number] [facility] [address] [place] [address] 08/15/2021 00:00:00 08/15/2021 16:27:16 [id number] [facility] [address] [place] [place] [address] 09/07/2021 00:00:00 09/07/2021 12:57:10 [id number] [facility] [place] [address] [place] [address] 10/10/2021 00:00:00 10/10/2021 12:23:16 [id number] [facility] [address] [place] [address] 11/07/2021 00:00:00 11/07/2021 16:01:42 [id number] [facility] [place] [address] [place] [address] 11/14/2021 00:00:00 11/14/2021 15:15:31 [id number] [facility] [place] [address] [place] [address] 01/17/2022 00:00:00 01/18/2022 17:48:51 [id number] [facility] [address] [place] [address] 02/19/2022 00:00:00 02/19/2022 16:22:11 [id number] [facility] [address] [place] [address] 04/02/2022 00:00:00 04/02/2022 15:56:46 [id number] [facility] [place] [address] [place] [address] 06/06/2022 00:00:00 06/06/2022 17:39:31 [id number] [facility] [place] [address] [place] [address] 08/16/2022 00:00:00 08/16/2022 12:19:29 [id number] [facility] [place] [address] [place] [address] 09/20/2022 00:00:00 09/20/2022 11:04:09 [id number] [facility] Pul[facility] Kat Beard [address] [place] [address] 10/01/2022 00:00:00 10/01/2022 15:54:32 [id number] Dayanna Hogan NP [address] [address] 11/28/2022 14:39:09 11/28/2022 15:53:35 Hemifacial spasm 70303473 G51.[address] Foreman and will be seeing Dr. Tyler at [facility] for movement disorder clinic .No change in current meds. [id number] Dayanna Hogan NP [address] [address] 01/17/2023 13:56:27 01/17/2023 16:20:21 Asthma [id number] J45.909 Albuterol HFA Hypothyroidism 46799336 E03.9 Levothyrox ine 150 mcg po daily. Hyperlipidemia 12828171 E78.5 low fat diet. Gastroesop hageal reflux disease 034598998 K21.9 stable Restless legs 07909561 G 25.81 ropinirole 0.25 mg po nightly. Depressive disorder 3548 9007 F32.9 Bupropion HCL SR 150 mg po bid.duloxe naren 60 mg po daily. Iron defic iency anemia 47361578 D50.9 ferrous sulfate 325 mg po daily. Allergic rhinitis 988149 04 J30.9 montelukas t 10 mgLoratadi ne 10 mg. Screening for malignant neoplasm of breast 415557977 Z12.39 mammogram ordered 01/17/23 Postmenopausal state 764 63495 Z78.0 Dexa ordered 01/17/23 [id number] Dayanna Hogan NP [address] [address] 08/15/2023 11:47:05 08/15/2023 16:16:52 Asthma 725502107 J45.909 Albuterol HFA Hypothyroidism 52626734 E03.9 Levothyrox ine 125 mcg po daily to levothyrox ine 100 mcg po daily.TSh not existent. Reduced levothyrox ine. new dose sent. Labs in 8 weeks.Chol esterol controlled . 07/14/23 new orders due before refill. Currently on levothyrox ine 100 mcg po daily.07/04 11/24 TSh low. Reduce to levothyrox ine 88 mcg po daily. Hyperlipidemia 78104174 E78.5 low fat diet. Essential hypertension 58387897 I10 monitor prn Gastroesop hageal reflux disease 271797885 K21.9 stable Restless legs 18181540 G 25.81 ropinirole 0.25 mg po nightly. Depressive disorder 3548 9007 F32.9 Bupropion HCL SR 150 mg po bid. Try for bupropion HCL XL 300 mg po daily for cost savings.du loxetine 60 mg po daily. Iron defic iency anemia 11238166 D50.9 ferrous sulfate 325 mg po daily. Allergic rhinitis 125639 04 J30.9 montelukas t 10 mgLoratadi ne 10 mg. 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 Hypokalemia 28282624 E87 .6 Health Concerns Section Related Observation LastModified by Organization Detai ls LastModified Time None Recorded Concern Status LastModified by Organization Details LastModified Time None Recorded Advance Directives Directive N: Packet Payers Encounter Date Sequence Insurance Name Policy Number Policy Luna Covered Member ID Luna Member ID Guarantor Name 11/28/2022 1 [place] Alisa Chamorro Pipes [id number] Alisa Chamorro Pipes 11/28/2022 2 [facility] OPTIONS (MEDICARE SUPPLEMENT) Alisa Chamorro Pipes [id number] Alisa Chamorro Pipes 01/17/2023 1 [place] Alisa Chamorro Pipes [id number] Alisa Chamorro Pipes 01/17/2023 2 [facility] OPTIONS (MEDICARE SUPPLEMENT) Alisa Chamorro Pipes [id number] Alisa Chamorro Pipes 08/15/2023 1 [place] Alisa Chamorro Pipes [id number] Alisa Chamorro Pipes 08/15/2023 2 [facility] OPTIONS (MEDICARE SUPPLEMENT) Alisa Chamorro Pipes [id number] Alisa Chamorro Pipes Notes Date Note Type [...] give her relief from legs being restless. [facility] notes not received previous were brought to office today and scanned into [employer]. Will be seeing sleep specialist Dr. Kumari December 23, 2022. Was seeing jennie chatterjee pricing clerk before but Dr. Foreman suggested a MD may give more options.Pt has RLS.Will be seeing movement specialist at [facility] Dr Tyler January 2023. Dayanna Hogan NP [address], [place], [address], [employer] 11/28/2022 15:52:38 01/17/2023 text/html Here for check [...] out. On walker. Dayanna Hogan NP [address], [place], [address], [employer] 01/17/2023 16:06:43 08/15/2023 text/html Here for check u p. Asthma- stableThyroid- no complaintslipid- trying to eat well.htn- Home bp doing well.Gerd- stableRLS- still feeling daria all the time as well as whole body.Depression- Stable on cymbalta and bupropion. Clonazepam added (to help claustrophobia with CPAP), Oxcarbazepine (for trigeminal neuralgia), and upped dose of carbidopa/levodopa. Per neurology.Was seeing Dr. Foreman. Dayanna Hogan, RENEA [address] [facility], [facility] [address], [place], [address], [facility] 08/15/2023 17:01:26 OBGyn Episode No OBEpisode recorded.
--- OUTSIDE RECORDS SUMMARY | 2024-10-25 08:28 | XMS_ITS | Clinical Summary ---
Author Organization [facility] Address [address] [place] [address] Care Team Providers Care Cnc Lathe Programmer Name Role Phone Juana Nguyen MD Primary Care Provider + [phone] Allergies Active Allergy Reactions Criticality Noted Date [...] Oral q hs, Route to Pharmacy Electronically, [facility]/pharmacy #[id number], 150, 09/27/21 13:13:00 DRIVE TESTER, Height/Length Dosing, cm, 97.8, 09/25/21 18:28:00 DRIVE TESTER, Weight Dosing, kg 2 Active omeprazole 40 [...] virus vaccine, PF, 0.5 ML injection Afluria 4268-0208(PF) 45 mcg (15 mcg x 3)/0.5 mL [...] mg tablet Active vitamin D2, ergocalciferol , 27528 UNITS capsule Take 50,000 Units by mouth [...] age to complete this topic Insurance MEDICARE [facility] Care Teams Cnc Lathe Programmer Relationship Specialty Start Date End Date Juana Nguyen MD [address], [facility] [place], [place] [address] PCP - General 06/26/14
--- OUTSIDE RECORDS SUMMARY | 2024-10-25 08:28 | XMS_ITS | Clinical Summary ---
Author Organization [facility] Address [address] [place] [address] Care Team Providers Care Product Development Consultant Name Role Phone Dayanna Aj Adam LUCIA-TELECOMMUNICATIONS SUPPORT Primary Care Provider Source Comments [facility],non-owned Affiliates and Associated Physician Practices is amultiple site organization consisting of ambulatory clinics and hospital sitesin [place], [place], [place] and [place]. This disclosure is being madepursuant to the Care Everywhere program and may not contain all information available regarding this patient. Last updated 18.[facility] Liquid Accounts Allergies Active Allergy Reactions Criticality Noted Date [...] mouth every 6 hours as needed Active Argyle-3 Fatty Acids (fish oil) 1000 MG capsule [...] mouth once daily 10/31/2021 Active HYDROcodone-acetam inophen ([place]) 7.5-325 MG tablet Take 1 (one) tablet by mouth every 6 hours as needed for Pain Active Klor-Con M20 20 MEQ tablet Take 1 (one) tablet by mouth once daily 02/05/2023 Active nystatin (Mycostatin) 993412 UNIT/GM cream 04/22/2023 Active amoxicillin (Amoxil) 500 MG capsule as needed 08/06/2023 Active benztropine (Cogentin) 1 MG tablet Take 1 (one) tablet by mouth once daily Active vitamin D, ergocalciferol, (Drisdol) 1.25 MG (37714 UT) capsule 10/09/2023 Active lisinopril (Prinivil; Zestril) 10 MG tablet [...] sprayIndications:A llergic rhinitis, unspecified seasonality, unspecified trigger Linwood 2 (two) sprays into each nostril once [...] at bedtime 270 capsule 3 07/22/2024 Active clonazePAM (KlonoPIN) 0.5 MG tabletIndications: RBD (REM behavioral disorder) TAKE 1 TABLET BY MOUTH EVERYDAY AT BEDTIME 90 tablet 09/24/2024 Active Active Problems Problem Noted Date Diagnosed [...] Encounters Date Type Department Care Team Description 10/08/2024 Orders Only [facility] [address] [place] [address] Duncan Sharp DO Primary osteoarthritis of right ankle; Nonunion of subtalar arthrodesis; Retained orthopedic hardware 10/06/2024 3:00 PM TECHNOLOGY RESOURCE TEACHER Office Visit [facility] [address] [place] [address] Duncan Sharp DO Nonunion of subtalar arthrodesis (Primary Dx); Retained orthopedic hardware; Status post surgery 09/24/2024 Refill [facility] - Neurology [address] [place] [phone] Katie Augustin APRN-TELECOMMUNICATIONS SUPPORT Refill Request 09/08/2024 4:10 PM TECHNOLOGY RESOURCE TEACHER Ancillary Procedure [facility] - Radiology [address] [place] [address] Duncan Sharp DO Primary osteoarthritis of right ankle 09/08/2024 4:05 PM TECHNOLOGY RESOURCE TEACHER Ancillary Procedure [facility] - Radiology [address] [place] [address] Duncan Sharp DO Primary osteoarthritis of right ankle 09/08/2024 3:20 PM TECHNOLOGY RESOURCE TEACHER Office Visit [facility] [address] [place] [address] Duncan Sharp DO Nonunion of subtalar arthrodesis (Primary Dx); Primary osteoarthritis of right ankle; Retained orthopedic hardware 08/03/2024 Telephone [facility] [address] [place] [address] Parrish Booth MD Medication Problem 08/02/2024 Telephone [facility] [address] [place] [address] Parrish Booth MD General from Last 3 Months Immunizations Name Administration Dates Next Due INFLUENZA VACCINE, TRIV. (AF LURIA, FLUZONE TRIVALENT; 6MO+) (IIV3) 07/04/2014,05/10/2013 COVID PFIZER 12+YR 30MCG/0.3mL 05/02/2023 COVID PFIZER BIVALENT 12Y+ 30mcg/0.3ML 04/16/2022 Covid Pfizer primary monoval ent 12+ yr 0.3mL Purple cap 05/03/2021,10/10/2020,09/19/2020 FLU VACCINE TRI IIV3 SPLIT I M (FLUVIRIN) 05/26/2013,05/15/2013 INFLUENZA N1M3-65, HISTORIC VACCINE 05/04,05/20/2022,05/10/2021,2020 INFLUENZA VACCINE, ADJUVANTE D, [...] Comments Blood Pressure 127/73 07/22/2024 10:37 AM TECHNOLOGY RESOURCE TEACHER Pulse 77 07/22/2024 10:37 AM TECHNOLOGY RESOURCE TEACHER Temperature 36.4 C (97.6 F) 05/10/2024 6:40 PM CDT Respiratory Rate 14 05/10/2024 7:00 PM CDT Oxygen Saturation 93% 05/10/2024 7:00 PM CDT Inhaled Oxygen Concentration - - Weight 73.5 kg (162 lb) 07/22/2024 10:37 AM TECHNOLOGY RESOURCE TEACHER Height 144.8 cm (4' 9 ) 07/22/2024 10:37 AM TECHNOLOGY RESOURCE TEACHER Body Mass Index 35.06 07/22/2024 10:37 AM TECHNOLOGY RESOURCE TEACHER Plan of Treatment Upcoming Encounters Date Type Department Care Team (Late st Contact Info) Description 11/17/2024 1:00 PM CDT Office Visit [facility] - [facility]rology [address] [facility] [place] [address] Demetria Carlos Albertosummershannon, FARROWING WORKER-TELECOMMUNICATIONS SUPPORT [facility] [place] [address] Health Maintenance Due Date Last Done Comments BONE DENSITY TESTING 1955 COLOGUARD (AGES 45-75) - COLON CA SCREENING 1955 COLON MONITORING 1955 COLONOSCOPY - COLON CA SCREENING 1955 CT COLONOGRAPHY - COLON CA SCREENING 1955 Colorectal Cancer Screening 1955 FIT - COLON CA SCREENING 1955 FLEX SIG - COLON CA SCREENING 1955 MAMMOGRAM 1955 MEDICARE AWV 12 MONTHS 1955 HEPATITIS C SCREENING 05/13/1971 COVID-19 VACCINE ( season) 2024 05/02/2023, 04/16/2022, 05/03/2021, Additional history exists INFLUENZA VACCINE (#1) 2024 3, 05/20/2022, 05/20/2022, Additional history exists DEPRESSION SCREENING 08/04/2024 SCREENING FOR DIABETES 03/17/2027 4, 10/20/2022, 10/14/2022, Additional history exists LIPID TESTING 02/15/2028 02/14/2023 DTAP/TDAP/TD VACCINES (3 - Td or Tdap) [...] complete this topic MENINGOCOCCAL (Group B) VACCINE SHARED DECISION-MAKING Aged Out No longer eligible based on patient's age to complete this topic MENINGOCOCCAL GROUPS A/C/Y/W VACCINE Aged Out No longer eligible based [...] per facility. Medical Devices Implanted Type Area Printing Worker Supervisor Device Identifier Shelf Expiration Date Model / Serial / Lot Mri Unsafe Moreira Neuro Stimulator Neuro Stimulator 3661 / / Description:per manual MRI u nsafe 3.5 Mm Lateral Distal Fibula Plate Implanted:Qt y: 1 on 09/22/2021 by Gonzales Rey, DO at [facility] Plate Right: Ankle [employer] [id number] / / Screw 3.5mm 14mm Slf-Tap Cortx Evos Strl Implanted:Qt y: 4 on 09/22/2021 by Gonzales Rey, DO at [facility] Screw Right: Ankle [employer] [id number] / / Screw 3.5mm 48mm Slf-Tap Cortx Evos Strl Implanted:Qt y: 1 on 09/22/2021 by Gonzales Rey, DO at [facility] Screw Right: Ankle [employer] [id number] / / Screw 3.5mm 55mm Slf-Tap Cortx Evos Strl Implanted:Qt y: 1 on 09/22/2021 by Gonzales Rey, DO at [facility] Screw Right: Ankle [employer] [id number] / / Fully Threaded 4.7 Mm Osteopenia Screw Implanted:Qt y: 1 on 09/22/2021 by Gonzales Rey, DO at [facility] Screw Right: Ankle [employer] [id number] / / 3.5 Mm Locking Screw Implanted:Qt y: 1 on 09/22/2021 by Gonzales Rey DO at [facility] Screw Right: Ankle [employer] [id number] / / Kit Bngf 3cc Aug Inj Implanted:Qt y: 1 on 10/14/2022 by Amy Mondragon MD at [facility] Right: Ankle [employer] 05/03/2023 [id number] / / [id number] Kit Bngf 3cc Aug Inj Implanted:Qt y: 1 on 10/14/2022 by Amy Mondragon MD at [facility] Right: Ankle [employer] 05/03/2023 [id number] / / [id number] Graft Bone Canc 4-9.5mm 15cc Frzdr Chp Implanted:Qt y: 1 on 10/14/2022 by Amy Mondragon MD at [facility] Right: Ankle [employer] 08/19/2026 [id number] / / [id number] Right Small Nail Implanted:Qt y: 1 on 10/14/2022 by Amy Mondragon MD at [facility] Right: Ankle [employer] 05/20/2030 [id number] / / [id number] Screw 5mm 25mm Valor Ti Hindfoot Fsn Sys Implanted:Qt y: 1 on 10/14/2022 by Amy Mondragon MD at [facility] Right: Ankle [employer] 07/16/2030 [id number] / / [id number] Screw 5mm 30mm Valor Ti Hindfoot Fsn Sys Implanted:Qt y: 1 on 10/14/2022 by Amy Mondragon MD at [facility] Right: Ankle [employer] 08/23/2030 [id number] / / [id number] 5x40mm Screw Implanted:Qt y: 1 on 10/14/2022 by Amy Mondragon MD at [facility] Right: Ankle [employer] Inc [id number] 07/16/2030 [id number] / / [id number] 5x70mm Screw Implanted:Qt y: 1 on 10/14/2022 by Amy Mondragon MD at [facility] Right: Ankle [employer] [id number] 01/16/2030 [id number] / / [id number] Screw 3.5mm 18mm T10 Ft Strdr Nonster Implanted:Qt y: 1 on 10/14/2022 by Amy Mondragon MD at [facility] Right: Ankle [employer] [id number] / / Screw 3.5mm 50mm T10 Ft Strdr Nonster Implanted:Qt y: 1 on 10/14/2022 by Amy Mondragon MD at [facility] Right: Ankle [employer] [id number] / / Graft Bone Ignite Dbm 20ml Pwr Mx Inj - [id number] Implanted:Qt y: 1 on 10/14/2022 by Amy Mondragon MD at [facility] Right: Ankle [employer] 03/18/2026 [id number] / [id number] / Lead Nrstm Inspr 3 Eltrd Cuf Tnl Pelon - [id number] Implanted:Qt y: 1 on 05/10/2024 by Sriram Simon MD at [facility] Right: Neck [employer] [id number] 06/29/2026 [id number] / [id number] / Lead Ns Resp - [id number] Implanted:Qt y: 1 on 05/10/2024 by Sriram Simon MD at [facility] Right: Chest [employer] [id number] 09/15/2026 4340 / [id number] / Gntr Nrstm - [id number] Implanted:Qt y: 1 on 05/10/2024 by Sriram Simon MD at [facility] Right: Chest [employer] [id number] 07/14/2026 3028 / [id number] / Explanted Type Area Printing Worker Supervisor Device Identifier Shelf Expiration Date Model / Serial / Lot Fully Threaded 4.7 Mm Osteopenia Screw Explanted:Qty: 1 on 09/22/2021 by Gonzales Rey DO at [facility] Screw Right: Ankle [employer] [id number] / / Wire K 1.6mm 150mm Troc Pnt Ss Fx Strl Explanted:Qty: 2 on 09/22/2021 by Gonzales Rey DO at [facility] Wire Right: Ankle [employer] [id number] / / Procedures Procedure Name Priority Date/Time Associated Diagnosis Comments CT LOWER EXT RIGHT WO CONTRAST Routine 10/08/2024 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 Retained orthopedic hardware XR CALCANEUS RIGHT 1VW Routine 09/08/2024 4:05 PM TECHNOLOGY RESOURCE TEACHER Primary osteoarthritis of right ankle XR ANKLE RIGHT 3VW OR MORE Routine 09/08/2024 4:04 PM TECHNOLOGY RESOURCE TEACHER Primary osteoarthritis of right ankle BASIC METABOLIC PANEL (CALCIUM TOTAL) STAT 03/17/2024 10:43 AM CDT COSTA (obstructive sleep apnea) from Last 3 Months or Most Recently Relevant to Health Maintenance Results * CT Lower Ext Right Wo Contrast (10/08/2024) Anatomical Region Laterality Modality Lower Extremity Other Duncan Sharp DO CT ORDERABLES * XR Calcaneus Right 1Vw (09/08/2024 4:05 PM TECHNOLOGY RESOURCE TEACHER) Narrative [facility] - 09/08/2024 4:05 PM TECHNOLOGY RESOURCE TEACHER For details of this study, please see the providers note. Duncan Sharp DO DIAGNOSTIC IMAGING O RDERABLES [facility] * XR Ankle Right 3Vw or More (09/08/2024 4:04 PM TECHNOLOGY RESOURCE TEACHER) Narrative [facility] - 09/08/2024 4:05 PM TECHNOLOGY RESOURCE TEACHER For details of this study, please see the providers note. Duncan Sharp DO DIAGNOSTIC IMAGING O RDVIVEK Performing Organization Address [facility]/ZIP Co de Phone Number SCM[facility] * (ABNORMAL) BASIC METABOLIC PANEL (CALCIUM TOTAL) (03/17/2024 10:43 AM CDT) BUN 21 7 - 26 mg/dL 03/17/2024 11:21 AM [facility] Creatinine 0.56 0.56 - 0.96 mg/dL 03/17/2024 11:21 AM [facility] Sodium 138 136 - 145 mmol/L 03/17/2024 11:21 AM [facility] Potassium 4.3 3.5 - 4.5 mmol/L 03/17/2024 11:21 AM [facility] Chloride 104 98 - 107 mmol/L 03/17/2024 11:21 AM [facility] CO2 26 22 - 29 mmol/L 03/17/2024 11:21 AM [facility] Glucose 99 70 - 115 mg/dL 03/17/2024 11:21 AM [facility] Calcium 9.4 8.4 - 10.2 mg/dL 03/17/2024 11:21 AM [facility] Anion Gap 8 6 - 16 03/17/2024 11:21 AM [facility] BUN/Creatinine Ratio 38(H) 7 - 23 03/17/2024 11:21 AM [facility] Osmolality Calculated 289 275 - 295 mOsm/kg 03/17/2024 11:21 AM [facility] eGFR by CKD-EPI >90 >=90 mL/min/1.7 3 m2 03/17/2024 11:21 AM [facility] Blood BLOOD SPECIMEN / Unknown Line Draw / Unknown 03/17/2024 10:43 AM CDT 03/17/2024 10:49 AM CDT Sriram Simon MD [facility] [address] [place] [address], [facility] [phone] from Last 3 Months or Most Recently Relevant to Health Maintenance Advance Directives * Full Code (Latest Code Status on File) Date Activated Date Inactivated Comments 10/14/2022 12:56 PM 10/15/2022 3:28 PM * Full Code Date Activated Date Inactivated Comments 09/21/2021 11:17 AM 09/25/2021 3:39 PM Care Teams Product Development Consultant Relationship Specialty Start Date End Date Dayanna Aj, FARROWING WORKER-TELECOMMUNICATIONS SUPPORT [address] [place] [phone] PCP - General Nurse Practitioner Family 10/08/23
--- OUTSIDE RECORDS SUMMARY | 2024-10-25 08:28 | XMS_ITS ---
Author Organization [facility] Address [address] [place], [place] [id number] Care Team Providers Care Applications Processor Name Role Phone JM ARMIJO Unavailable [phone] Dayanna Aj Unavailable Unavailable Allergies Allergen (clinical [...] Location Date Provider Diagnosis [facility] [address] [place], [place] [id number] 07/15/2024 JM ARMIJO Sprain of anterior talofibular [...] * Roberta SHUKLAOB:1955 ([age] yo F)Acc No.[id number]:07/15/2024 Progress Notes Patient: Heather CAMPBELL Provider: Cyndi Armijo DPM :1955 A ge:69 Y S ex:Female Date:07/15/2024 Address:[facility] [address] [place], [id number] Subjective: * Chief Complaints: * H aving [...] 3610 X-RAY EXAM [place] ANK[place], [place]: [place] [address] X-RAY EXAM OF FOOT, Modifiers: LT * Billing Information: * Visit Code: 29519 Office Visit, New Pt., Level 3. * Procedure Codes: 61322 X-RAY EXAM [place] [address] X-RAY EXAM OF FOOT. Modifiers: LT * Sign off status: Completed true * Provider: Cyndi Armijo DPM Date: 1 09/15/2023 Generated for Shant alicea/Sabrina/Jose on: 0 10/25/2024 08:28 AM CDT History and Physical Notes * HPI (History [...]
[2024-10-25 08:29] LABS: Estimated Glomerular Filt Rate > 60
--- OUTSIDE RECORDS SUMMARY | 2024-10-25 08:29 | XMS_ITS | CONTINUITY OF CARE DOCUMENT ---
Author Name catrinadavid catrinadavid Address Unknown Organization [facility] Address [address] [place] [address] Phone [phone] Care Team Providers Care Print Shop Helper Name Role Phone Wilber ARNOLD, Chucho Unavailable [phone] Madai CARDIAC REHABILITATION SPECIALIST-BC, Dayanna L Unavailable [place] CARDIAC REHABILITATION SPECIALIST-BC, Dayanna L Unavailable PROBLEMS Condition Status Date Provider Notes Restless leg syndrome active Chucho Merino MD Hypothyroidism active Chucho Merino MD GERD (gastroesophageal reflux disease) active Chucho Merino MD Cardiomegaly active Chucho Merino MD Preoperative cardiovascular examination active Chucho Merino MD Cardiology examination active Chucho farah MD ENCOUNTERS Date Type Provider Location Encounter Diag nosis - In-person encounter Office Visit Chucho Merino MD [facility] Cardiology examinationPreoperative cardiovascular examinationCardiomegalyGERD (gastroesophageal reflux [...] Payer name Policy type / Coverage type [place] red constitution party ID [id number] [id number] [place] Medicare [id number] ADVANCE DIRECTIVES Name Date DISCUSSED - NO DECISION MADE TREATMENT PLAN Date Name Performer [id number],C, O n omeprazole Margaret Coronacan [id number],C, C ontinues on replacement therapy Margaret Coronacan [id number],C,S he had a chest x-ray at [facility] and was told her heart was enlarged. She had an echo done today. The left ventricular size and systolic function is normal. No wall motion abnormality noted. She is planned to undergo surgery which she can undergo at an acceptable risk. Chucho Merino MD [id number],C,S he had a chest x-ray at [facility] and was told her heart was enlarged. Chucho Merino MD [id number],C,S he had a chest x-ray at [facility] as preop for right ankle surgery. She denies any Sx of SOB or chest pain. The chest x-ray shows cardiomegaly. As part of risk assessment prior to surgery, an echo wll be done to assess wall motion and ejection fraction. Chucho Merino MD Cardiology: O n omeprazole Margaret Eriberto Cardiology: C ontinues on replacement therapy Margaret Wei Cardiology:She had a chest x-ray at [facility] and was told her heart was enlarged. She had an echo done today. The left ventricular size and systolic function is normal. No wall motion abnormality noted. She is planned to undergo surgery which she can undergo at an acceptable risk. Chucho Merino MD Cardiology:She had a chest x-ray at [facility] and was told her heart was enlarged. Chucho Merino MD Cardiology:She had a chest x-ray at [facility] as preop for right ankle surgery. She [...]
[2024-10-25 10:44] LABS: Iron 78 ug/dL (37-170)
[2024-10-25 10:54] LABS: Percent Iron Saturation 27 % (20-50)
[2024-10-25 13:44] LABS: Free T4 Free Thyroxine Reflex 1.23 ng/dL (0.78-2.19)
[2024-10-25 14:38] LABS: Total Triiodothyronine (T3) 1.11 NG/ML (0.97-1.69)
[2024-10-26 17:28] LABS: Red Blood Cell Folate 691 ng/mL RBC (>280)
== END 2024-10-25 08:12 | disposition home or self-care (01) ==
LOC: ANHIMG 08:15
PROVIDERS: PCP Nurse Practitioner Family; Visit Provider Nurse Practitioner Family
DX: R10.31 Right lower quadrant pain (principal); D50.9 Iron deficiency anemia, unspecified; D64.9 Anemia, unspecified; Z13.29 Encounter for screening for other suspected endocrine disorder
CPT/HCPCS: 36415; 74177; 82728; 82747; 83540; 83550; 84439; 84443; 84480; Q9967

== ENCOUNTER 2025-01-07 01:02 | Day surgery (SDC) | payer MEDICARE, SELFPAY ==
[2024-12-28 13:11] VITALS: BMI 36.6
--- OUTSIDE RECORDS SUMMARY | 2025-01-07 01:04 | XMS_ITS | Clinical Summary ---
Author Organization [facility] Address [address] [place] [address] Care Team Providers Care Global Position System Technician Name Role Phone Dayanna Aj Adam LUCIA-TERMINOLOGIST Primary Care Provider Source Comments [facility],non-owned Affiliates and Associated Physician Practices is amultiple site organization consisting of ambulatory clinics and hospital sitesin [place], [place], [place] and [place]. This disclosure is being madepursuant to the Care Everywhere program and may not contain all information available regarding this patient. Last updated 18.[facility] Nitronex Allergies Active Allergy Reactions Criticality Noted Date Comments Lisinopril Cough 06/16/2024 Lorazepam Psychiatric Medium 05/19/2023 I get weird with it Pregabalin Swelling High 09/21/2021 Skin Adhesives Rash Medium 10/11/2022 Skin peels off; Paper tape ok Medications * Be aware that medications may not be up to date on this document. Alwaysverify current medications with the patient. ferrous sulfate 325 (65 FE) MG tablet [...] mouth every 6 hours as needed Active [place]-3 Fatty Acids (fish oil) 1000 MG capsule Active SUPER B COMPLEX/C PO Take 1 tablet by mouth 2 times daily Active Multiple Vitamins-Minera ls (HAIR SKIN NAILS PO) Active magnesium 250 MG tablet Take 1 (one) tablet by mouth 2 times daily Active vitamin D3 (Cholecalcifero l) 25 MCG (1000 UNITS) tablet Take 2 (two) tablets by mouth once daily Active Probiotic Product (probiotic daily) capsule Take by mouth every 7 days 50 billion Active DULoxetine (Cymbalta) 60 MG capsule Take 1 (one) capsule by mouth once daily 022 Active montelukast (Singulair) 10 MG tablet Take 1 (one) tablet by mouth once daily 022 Active HYDROcodone-justin taminophen ([place]) 7.5-325 MG tablet Take 1 (one) tablet by mouth every 6 hours as needed for Pain Active Klor-Con M20 20 MEQ tablet Take 1 (one) tablet by mouth once daily 023 Active nystatin (Mycostatin) 558326 UNIT/GM cream 023 Active amoxicillin (Amoxil) 500 MG capsule as needed Active benztropine (Cogentin) 1 MG tablet Take 1 (one) tablet by mouth once daily Active vitamin D, ergocalciferol, (Drisdol) 1.25 MG (28179 UT) capsule Active lisinopril (Prinivil; Zestril) 10 MG tablet Take 1 (one) tablet by mouth once daily 024 Active acetaminophen (Tylenol) 325 MG tablet Take 2 (two) tablets by mouth every 6 hours as needed for Fever or Pain Maximum allowable Acetaminophen amount = 4 Grams (4000 mg) / 24 hours. Active ibuprofen (Motrin) 600 MG tablet Take 1 (one) tablet by mouth every 6 hours as needed for Pain Active oxyCODONE, immediate release, (Roxicodone) 5 MG tabletIndicatio ns:S/P insertion of hypoglossal nerve stimulator Take 1 (one) tablet by mouth every 6 hours as needed for Pain 12 tablet Active Additional Information Patient not taking.Reported on 11/19/2024 docusate sodium (Colace) 100 MG capsule Take 1 (one) capsule by mouth once daily 20 capsule Active carbidopa-levod opa (Sinemet) 25-100 MG tabletIndicatio ns:RLS (restless legs syndrome) Take 2 (two) tablets by mouth 3 times daily 540 tablet 3 024 Active losartan (Cozaar) 25 MG tabletIndicatio ns:Essential hypertension Take 1 (one) tablet by mouth once daily 90 tablet 3 024 Active levothyroxine (Synthroid) 100 MCG tablet Take 1 (one) tablet by mouth once daily Active buPROPion XL 24hr (Wellbutrin-XL) 300 MG tablet Take 1 (one) tablet by mouth every morning Active fluticasone propionate (Flonase) 50 MCG/ACT nasal sprayIndication s:Allergic rhinitis, unspecified seasonality, unspecified trigger [place] 2 (two) sprays into each nostril once daily 48 g 4 Active Additional Information Patient not taking.Reported on 11/19/2024 fexofenadine (Briana) 180 MG tabletIndicatio ns:Allergic rhinitis, unspecified seasonality, unspecified trigger Take 1 (one) tablet by mouth once daily 90 tablet 3 024 Active gabapentin (Neurontin) 100 MG capsuleIndicati ons:RLS (restless legs syndrome) Take 3 (three) capsules by mouth at bedtime 270 capsule 3 024 Active ondansetron (Zofran) 4 MG tablet Take 1 (one) tablet by mouth every 6 hours as needed for Nausea/Vomiting Active carbidopa-levod opa CR (Sinemet CR) 50-200 MG tabletIndicatio ns:RLS (restless legs syndrome) Take 1 (one) tablet by mouth 2 times daily 180 tablet 3 025 Active OXcarbazepine (Trileptal) 150 MG tabletIndicatio ns:Trigeminal neuralgia Take 1 (one) tablet by mouth 2 times daily 180 tablet 4 025 Active clonazePAM (KlonoPIN) 0.5 MG tabletIndicatio ns:RBD (REM behavioral disorder) TAKE 1 TABLET BY MOUTH EVERYDAY AT BEDTIME 30 tablet 5 025 Active clonazePAM (KlonoPIN) 0.5 MG tablet Take 1 (one) tablet by mouth 2 times daily as needed for Anxiety 180 tablet 1 025 Active clonazePAM (KlonoPIN) 0.5 MG tabletIndicatio ns:RBD (REM behavioral disorder) TAKE 1 TABLET BY MOUTH EVERYDAY AT BEDTIME 90 tablet 025 2024 Discontinued Active Problems Problem Noted Date Diagnosed Date [...] Closed fracture of right ankle, sequela 10/15/19 23 Cardiomegaly 08/22/2022 01/16/2023 Arthralgia of right ankle [...] Encounters Date Type Department Care Team Description 01/01/2025 Telephone [facility]rology [address] [place] [address] [phone] Saima Villa MD Medication Problem 12/31/2024 Refill [facility] [address] [place] [address] [phone] Yadira Mcnally APRN-ARIEL Refill Request 11/19/2024 10:30 AM CDT Office Visit [facility] [address] [place] [address] [phone] Katie Augustin APRN-CNP Idiopathic Parkinson's disease (HCC) (Primary Dx); RLS (restless legs syndrome); Trigeminal neuralgia 11/19/2024 Travel 10/08/2024 Orders Only [facility] Orthoped[facility] [place] [address] Duncan Sharp DO Primary osteoarthritis of right ankle; Nonunion of subtalar arthrodesis; Retained orthopedic hardware from Last 3 Months Immunizations Immunization Administration Dates Next Due INFLUENZA VACCINE, TRIV. (AF LURIA, FLUZONE TRIVALENT; 6MO+) (IIV3) 07/04/2014,05/10/2013 COVID PFIZER 12+YR 30MCG/0.3mL 05/02/2023 COVID PFIZER BIVALENT 12Y+ 30mcg/0.3ML 04/16/2022 Covid Pfizer primary monoval ent 12+ yr 0.3mL Purple cap 05/03/2021,10/10/2020,09/19/2020 FLU VACCINE TRI IIV3 SPLIT I M (FLUVIRIN) 05/26/2013,05/15/2013 INFLUENZA B5N1-48, HISTORIC VACCINE 05/04,05/20/2022,05/10/2021,2020 INFLUENZA VACCINE, ADJUVANTE D, [...] Bachelor's degree (e.g., BA, AB, BS) 04/10/2023 Comments No Sex and Gender Information Value Date Recorded Sex Assigned at Not on file Legal Sex Female 12:32 AM CDT Gender Identity Not on file Sexual Orientation Not on file Last Filed Vital Signs Vital Sign Reading Time Taken Comments Blood Pressure 136/80 11/19/2024 10:35 AM CDT Pulse 89 11/19/2024 10:35 AM CDT Temperature 36.4 C (97.6 F) 05/10/2024 6:40 PM CDT Respiratory Rate 14 05/10/2024 7:00 PM CDT Oxygen Saturation 98% 11/19/2024 10:35 AM CDT Inhaled Oxygen Concentration - - Weight 78.5 kg (173 lb) 11/19/2024 10:35 AM CDT Height 144.8 cm (4' 9) 11/19/2024 10:35 AM CDT Body Mass Index 37.44 11/19/2024 10:35 AM CDT Plan of Treatment Upcoming Encounters Date Type Department Care Team (Late st Contact Info) Description 05/23/2025 2:00 PM CDT Office Visit [facility] [address] [place] [address] DemetriaKatie, CORD SPLICER-TERMINOLOGIST [address] [place] [phone] Health Maintenance Due Date Last Done Comments [...] 2024 05/02/2023, 04/16/2022, 05/03/2021, Additional history exists DEPRESSION SCREENING 08/04/2024 INFLUENZA VACCINE (Season Ended) 2025 05/02/2023, 05/20/2022, 05/20/2022, Additional history exists SCREENING FOR DIABETES 03/17/2027 , 10/20/2022, 10/14/2022, Additional history exists LIPID TESTING [...] per facility. Medical Devices Implanted Type Area Mechanical Specialist Device Identifier Shelf Expiration Date Model / Serial / Lot Mri Unsafe Moreira Neuro Stimulator Neuro Stimulator [id number] / / Description:per manual MRI u nsafe 3.5 Mm Lateral Distal Fibula Plate Implanted:Qt y: 1 on 09/22/2021 by Gonzales Rey, DO at [facility] Plate Right: Ankle [employer] [id number] / / Screw 3.5mm 14mm Slf-Tap Cortx Evos Strl Implanted:Qt y: 4 on 09/22/2021 by Gonzales Rey, at [facility] Screw Right: Ankle [employer] [id number] / / Screw 3.5mm 48mm Slf-Tap Cortx Evos Strl Implanted:Qt y: 1 on 09/22/2021 by Gonzales Rey DO at [facility] Screw Right: Ankle [employer] [id number] / / Screw 3.5mm 55mm Slf-Tap Cortx Evos Strl Implanted:Qt y: 1 on 09/22/2021 by Gonzales Rey DO at [facility] Screw Right: Ankle [employer] [id number] / / Fully Threaded 4.7 Mm Osteopenia Screw Implanted:Qt y: 1 on 09/22/2021 by Gonzales Rey DO at [facility] Screw Right: Ankle [employer] [id number] / / 3.5 Mm Locking Screw Implanted:Qt y: 1 on 09/22/2021 by Gonzales Rey DO at [facility] Screw Right: Ankle [employer] [id number] / / Kit Bngf 3cc Aug Inj Implanted:Qt y: 1 on 10/14/2022 by Amy Mondragon MD at [facility] Right: Ankle [employer] 05/03/2023 [id number] / / [id number] Kit Bngf 3cc Aug Inj Implanted:Qt y: 1 on 10/14/2022 by Amy Mondragon MD at [facility] Right: Ankle [employer] 05/03/2023 [id number] / / [id number] Graft Bone Canc 4-9.5mm 15cc Frzdr Chp Implanted:Qt y: 1 on 10/14/2022 by Amy Mondragon MD at [facility] Right: Ankle [employer] 08/19/2026 [id number] / / [id number] Right Small Nail Implanted:Qt y: 1 on 10/14/2022 by Amy Mondragon MD at [facility] Right: Ankle [employer] 05/20/2030 [id number] / / [id number] Screw 5mm 25mm Valor Ti Hindfoot Fsn Sys Implanted:Qt y: 1 on 10/14/2022 by Amy Mondragon MD at [facility] Right: Ankle [employer] 07/16/2030 [id number] / / [id number] Screw 5mm 30mm Valor Ti Hindfoot Fsn Sys Implanted:Qt y: 1 on 10/14/2022 by Amy Mondragon MD at [facility] Right: Ankle [employer] 08/23/2030 [id number] / / [id number] 5x40mm Screw Implanted:Qt y: 1 on 10/14/2022 by Amy Mondragon MD at [facility] Right: Ankle [employer] [id number] 07/16/2030 [id number] / / [id number] 5x70mm Screw Implanted:Qt y: 1 on 10/14/2022 by Amy Mondragon MD at [facility] Right: Ankle [employer] [id number] 01/16/2030 [id number] / / [id number] Screw 3.5mm 18mm T10 Ft Strdr Nonster Implanted:Qt y: 1 on 10/14/2022 by Amy Mondragon MD at [facility] Right: Ankle [employer] [id number] / / Screw 3.5mm 50mm T10 Ft Strdr Nonster Implanted:Qt y: 1 on 10/14/2022 by Amy Mondragon MD at [facility] Right: Ankle [employer] [id number] / / Graft Bone Ignite Dbm 20ml Pwr Mx Inj - [id number] Implanted:Qt y: 1 on 10/14/2022 by Amy Mondragon MD at [facility] Right: Ankle [employer] 03/18/2026 [id number] / [id number] / Lead Nrstm Inspr 3 Eltrd Cuf Tnl Pelon - [id number] Implanted:Qt y: 1 on 05/10/2024 by Sriram Simon MD at [facility] Right: Neck [employer] [id number] 06/29/2026 [id number] / [id number] / Lead Ns Resp - [id number] Implanted:Qt y: 1 on 05/10/2024 by Sriram Simon MD at [facility] Right: Chest [employer] [id number] 09/15/2026 4340 / [id number] / Gntr Nrstm - [id number] Implanted:Qt y: 1 on 05/10/2024 by Sriram Simon MD at [facility] Right: Chest [employer] [id number] 07/14/2026 3028 / [id number] / Explanted Type Area Mechanical Specialist Device Identifier Shelf Expiration Date Model / Serial / Lot Fully Threaded 4.7 Mm Osteopenia Screw Explanted:Qty: 1 on 09/22/2021 by Gonzales Rey DO at [facility] Screw Right: Ankle [employer] [id number] / / Wire K 1.6mm 150mm Troc Pnt Ss Fx Strl Explanted:Qty: 2 on 09/22/2021 by Gonzales Rey DO at [facility] Wire Right: Ankle [employer] [id number] / / Procedures Procedure Name Priority Date/Time Associated Diagnosis Comments CT LOWER EXT RIGHT WO CONTRAST Routine 10/08/2024 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 Retained orthopedic hardware BASIC METABOLIC PANEL (CALCIUM TOTAL) STAT 03/17/2024 10:43 AM CDT COSTA (obstructive sleep apnea) from Last 3 Months or Most Recently Relevant to Health Maintenance Results * CT Lower Ext Right Wo Contrast (10/08/2024) Anatomical Region Laterality Modality Lower Extremity Other Duncan Sharp DO CT ORDERABLES Final Result * (ABNORMAL) BASIC METABOLIC PANEL (CALCIUM TOTAL) (03/17/2024 10:43 AM CDT) BUN 21 7 - 26 mg/dL 03/17/2024 11:21 AM [facility] Creatinine 0.56 0.56 - 0.96 mg/dL 03/17/2024 11:21 AM [facility] Sodium 138 136 - 145 mmol/L 03/17/2024 11:21 AM [facility] Potassium 4.3 3.5 - 4.5 mmol/L 03/17/2024 11:21 AM [facility] Chloride 104 98 - 107 mmol/L 03/17/2024 11:21 AM [facility] CO2 26 22 - 29 mmol/L 03/17/2024 11:21 AM [facility] Glucose 99 70 - 115 mg/dL 03/17/2024 11:21 AM [facility] Calcium 9.4 8.4 - 10.2 mg/dL 03/17/2024 11:21 AM [facility] Anion Gap 8 6 - 16 03/17/2024 11:21 AM [facility] BUN/Creatinine Ratio 38(H) 7 - 23 03/17/2024 11:21 AM [facility] Osmolality Calculated 289 275 - 295 mOsm/kg 03/17/2024 11:21 AM [facility] eGFR by CKD-EPI >90 >=90 mL/min/1.7 3 m2 03/17/2024 11:21 AM [facility] Blood BLOOD SPECIMEN / Unknown Line Draw / Unknown 03/17/2024 10:43 AM CDT 03/17/2024 10:49 AM [facility] us Sriram Simon MD LAB - CHEMISTRY ORDERABLE S Final Result [facility] [address] [place] [address], [facility] [phone] from Last 3 Months or Most Recently Relevant to Health Maintenance Insurance [facility]ICARE [facility]ICARE [facility] Advance Directives * Full Code (Latest Code Status on File) Date Activated Date Inactivated Comments 10/14/2022 12:56 PM 10/15/2022 3:28 PM * Full Code Date Activated Date Inactivated Comments 09/21/2021 11:17 AM 09/25/2021 3:39 PM Care Teams Global Position System Technician Relationship Specialty Start Date End Date Dayanna jA, CORD SPLICER-TERMINOLOGIST [address] [place] [address] PCP - General Nurse Practitioner Family 10/08/23
--- OUTSIDE RECORDS SUMMARY | 2025-01-07 01:04 | XMS_ITS | Encounter Summary ---
Author Organization [facility] Address [address] [place] [address] Care Team Providers Care Director Of Early Childhood Education Name Role Phone Dayanna Aj Adam DE LUNAN-MEDICAL STAFFING COORDINATOR Primary Care Provider Reason for Visit * Reason Onset Date Comments Medication Problem 01/01/2025 Encounter Details Date Type Department Care Team (Late st Contact Info) Description 01/01/2025 Telephone [facility] [address] [facility], [place] [address] Saima Villa MD [address] [place], [place] [id number] Medication Problem Social History Tobacco Use Types Packs/Day Years Used Date Smoking Tobacco: Never Smokeless Tobacco: Never Alcohol Use Standard Drinks/Week Comments Not Currently [...] on file Sexual Orientation Not on file documented as of this encounter Functional Status * Is person deaf or have serious hearing difficulty? Answer Date of Assessment Author No 05/10/2024 6:40 PM CDT Kevin Stokes RN * Is person blind or have serious difficulty seeing? Answer Date of Assessment Author No 05/10/2024 6:40 PM CDT Kvein Stokes RN * Does person have serious difficulty walking/climbing stairs? Answer Date of Assessment Author No 05/10/2024 6:40 PM CDT Kevin Stokes RN * Does person have difficulty dressing/bathing? Answer Date of Assessment Author No 05/10/2024 6:40 PM CDT Kevin Stokes RN * Does person have difficulty doing errands alone? Answer Date of Assessment Author No 05/10/2024 6:40 PM CDT Kevin Stokes RN documented as of this encounter Mental Status * Does person have difficulty concentrating/remembering/making decisions? Answer Entry Date Author No 05/10/2024 6:40 PM MARLENAT Kevin Stokes RN documented in this encounter Miscellaneous Notes * Telephone Encounter - Saima Villa MD - 01/01/2025 2:09 PM CDT Telephone encounter Patient reached out because she is having trouble getting clonazepam 0.5 mg at bedtime prescription. Patient has multiple comorbidities (RLS, [place]) follows up with [facility] Wilson in Neurology clinic. The pharmacy told her that they faxed a request to someone but she is not sure to who. I represcribed the medication clonazepam 0.5 mg once at bedtime and patient will try to get her prescription from the pharmacy. I asked the patient to notify me if that did not work so I can leave an epic message to her clinic ([facility]). Saima Villa M.D. Neurology Resident PGY2 [facility] documented in this encounter Plan of Treatment Upcoming Encounters Date Type Department Care Team (Late st Contact Info) Description 05/23/2025 2:00 PM CDT Office Visit [facility] [address] [facility] [place] [phone] Katie Augustin APRN-CNP [address] DIV [place] [phone] documented as of this encounter Goals Goal Patient Goal Type Associated Problems Recent Progress Patient-Stated? Author Mobility General No Bryanna Henning, RN Note: Expected end date: 3 months The goal is to maintain or improve your mobility at the optimum level for you. Interventions: Will be NWB RLE, participate with PT per facility. documented as of this encounter Visit Diagnoses Diagnosis RBD (REM behavioral disorder) REM sleep behavior disorder documented in this encounter Care Teams Director Of Early Childhood Education Relationship Specialty Start Date End Date Dayanna Aj APRN-ARIEL [address] [place] [address] PCP - General Nurse Practitioner Family 10/08/23 documented as of this encounter
--- OUTSIDE RECORDS SUMMARY | 2025-01-07 01:05 | XMS_ITS | Data Portability ---
Author Organization [facility], Main Office Address [address] [place] [address] Assessment Encounter Date Assessment Date Assessment LastModified by Organization Details LastModified Time 01/17/2023 01/17/2023 discussed getting shingles and td vaccine. Not available 01/17/2023 14:30:58 08/15/2023 08/15/2023 discussed getting shingles and td vaccine. Not available 08/15/2023 12:18:19 Plan of Treatment Reminders Order Date Submit Date Provider Last Modified By Organization Details Last Modified Time Details Appointments None recorded. Lab lipid panel, serum [address] (Admitting), [address] [place] [address] [address], [place], [address], 3 08:00:10 TSH, serum, reflex free T4 2022 023 [facility] (Lab), [address] [place] [address], [address], 3 12:25:39 Referral None recorded. Procedures None recorded. Surgeries None recorded. Imaging MAMMO, screening, digital, bilateral 2022 023 [email or web address] Not available 3 09:06:22 bone density 2022 023 Not available 3 08:57:14 Medication Orders albuterol sulfate HFA 90 mcg/actuati on aerosol inhaler 2023 024 [id number], [address], [place], [address], 4 12:54:52 bupropion HCl XL 300 mg 24 hr tablet, extended release 2023 024 [id number], [address] [facility], [place], [id number], 4 12:54:56 Klor-Con M20 mEq tablet,exte nded release 2023 024 [id number], [address], [place], [address], 4 12:54:52 duloxetine 60 mg capsule,del ayed release 2023 024 [id number], [address], [place], [address], 4 12:54:52 Patient TargetsNo targets recorded. Patient Instructions Encounter Date Encounter Id Patient Instructions Last Modified By Organization Details Last Modified Time 01/17/2023 [id number] fu in 6 mo for check up 30 min Not available 01/17/2023 16:05:19 08/15/2023 [id number] Fu with new pcp in 1-3 mo. 08/15/23 pt aware of samira departure Not available 08/15/2023 12:19:03 Reason for Referral None Reported. Results Created Date Observation Date Name Description Value Unit Range Abnormal Flag Note LastModifiedBy Organization Detail LastModifiedTime 08/22/1908/22/2022 imagi ng/di agnos tic resul t No observ ation record ed. [id number] [facility] [address], [place], [address], 10/02/2022 07:01:19 11/17/19 23 11/16/2022 CT, brain , w/o contr ast No observ ation record ed. [facility] [address], [place], [address], 11/28/2022 15:21:30 11/20/19 23 11/17/2022 iain nuous EEG monit oring , profe sugey al compo nent; 12-26 hrs, with VEEG (PROC ) No observ ation record ed. [facility] [address], [place], [address], 11/28/2022 15:21:29 02/15/20 23 lipid panel , serum [facility] [address] [place] [address] Patien t Name: ALISA GONZALEZ ion #: [id number] Sex: F : 1954 2 Dictat ed By: Baldomero trevino Attend ing Physic kain: SAMM HOGAN [facility] Physic kain: SAMIRA KEMP Exam Date: 2022 13:43 PM Exam Name: XR DEXA AXIAL/ HIP/PE LVIS/S PINE Admitt ing Diagno sis(es ): CLINIC AL HISTOR Y: Postme nopaus al screen ing for osteop orosis . TECHNI QUE: The study was perfor med using a Zokem Unit. Left proxim al femora l and [...] at 2022 08:03: 02 AM Page [address] (Imaging) [address] [place], [address], 02/21/2023 08:00:10 02/15/20 23 02/13/2023 bone densi ty No observ ation record ed. [address] [place], [address], 02/18/2023 15:08:12 02/15/20 23 MAMMO , scree michael, digit al, bilat eral [facility] [address] [place] [address] [phone] Patien t Name: ALISA GONZALEZ Access ion #: [id number] Sex: F : 1954 2 Dictat ed By: Baldomero trevino Attend ing Physic kain: SAMM HOGAN [facility] Physic kain: SAMIRA KEMP Exam Date: 2022 [...] at 2022 08:11: 43 AM Page 1 [facility] (Imaging) [address] [place], [address], 02/18/2023 15:08:13 03/07/20 23 03/07/2023 US, luis t, [facility] [address] [place] [address] Patien t Name: ALISA GONZALEZ ion #: [id number] Sex: F : 1954 7 Dictat [...] at 2022 14:21: 10 PM Page [address] (Imaging) [address] [place], [address], 03/12/2023 15:17:05 03/07/20 23 03/07/2023 TSH, serum , refle x free T4 [facility] [address] [place] [address] [phone] Patien t Name: ALISA GONZALEZ ion #: [id number] Sex: F : 1954 7 Dictat [...] at 2022 14:21: 10 PM Page [address] (Imaging) [address] [place], [address], 04/11/2023 07:57:39 Result Notes None recorded. Problems Name Problem SNOMED Code Status Onset Date Resolution Date Notes Provider Name and Address Organization Details Recorded Time Excessive cerumen in ear canal 980859086 Completed Not Available [facility] 3 06:57:57 Lumbar radiculop athy 206500410 Active Not Available [facility] 4 07:02:59 Folliculi tis 00283355 Completed Not Available [facility] 3 06:57:57 Pain of right ankle joint 90622552617 982219 Active 3 Not Available [facility] 4 07:02:59 Otalgia 22465999 Completed Not Available [facility] 3 06:57:57 Pain in throat 996269164 Active 2018 Not Available [facility] 4 07:02:59 Asthma 800470815 Active 2017 Not Available [facility] 4 07:02:59 Skin tag 736257490 Completed Not Available [facility] 3 06:57:57 Gastroeso phageal reflux disease 919369209 Active Not Available [facility] 4 07:02:59 Edema 427332870 Completed Not Available [facility] 3 06:57:58 Vaginal discharge 260190791 Active 2017 Not Available [facility] 4 07:02:59 Leukocyte s in urine 705279946 Completed Not Available [facility] 3 06:57:58 Pain in left lower limb 356835094 Completed Not Available [facility] 3 06:57:58 Periphera l nerve disease 102434748 Active Not Available [facility] 4 07:02:59 Knee pain Active Not Available [facility] 4 07:02:59 Osteopeni a 135924478 Active 2017 Not Available [facility] 4 07:02:59 Vaginal dryness 37523596 Active Not Available [facility] 4 07:02:59 Restless legs 21166580 Active Not Available [facility] 4 07:02:59 Vitamin D deficienc y 71297429 Active Not Available [facility] 4 07:02:59 Depressiv e disorder 09007780 Active Not Available [facility] 4 07:02:59 Migraine 19259624 Active Not Available [facility] 4 07:02:59 Hypertens nupur disorder 06358948 Active Not Available [facility] 4 07:02:59 Hypothyro idism 77177824 Active Not Available [facility] 4 07:02:59 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 Not Available [facility] 4 07:02:59 Periodic limb movement disorder 225259259 Active 2020 Not Available [facility] 4 07:02:59 History of polyp of colon 438701764 Active Not Available [facility] 4 07:02:59 Acute urinary tract infection 869073345 Completed Not Available [facility] 3 06:57:59 Hypokalem ia 66637832 Active 2017 Not Available [facility] 4 07:02:59 Abnormal cervical Papanicol aou smear 607663557 Completed Not Available [facility] 3 06:57:59 Seasonal allergy 380866078 Active Not Available [facility] 4 07:02:59 Anxiety 63951313 Active Not Available [facility] 4 07:02:59 Pain of hip region 18049274 Active Not Available [facility] 4 07:02:59 Dysuria 24396389 Active 2020 Not Available [facility] 4 07:02:59 Sinus headache 4472157 Completed Not Available [facility] 3 06:58:00 Cough 83242345 Completed Not Available [facility] 3 06:58:00 Hyperlipi demia 10852009 Active Not Available [facility] 4 07:02:59 Essential hypertens ion 92178851 Active 2017 Not Available [facility] 4 07:02:59 Allergic rhinitis 16646680 Active 2018 Not Available [facility] 4 07:02:59 Urinary tract infectiou s disease 44355094 Completed Not Available [facility] 3 06:58:00 Sleep apnea 78946883 Active Not Available [facility] 4 07:02:59 Posterior rhinorrhe a 41536206 Active Not Available [facility] 4 07:02:59 Postmenop ausal state 51987044 Active 2017 Not Available [facility] 4 07:02:59 Greater trochante marian pain syndrome 3653071 Active Not Available [facility] 4 07:02:59 Hypersomn ia 38434311 Active 2020 Not Available [facility] 4 07:03:00 Obstructi ve sleep apnea syndrome 02578997 Active 2020 Not Available [facility] 4 07:03:00 Congestio n of nasal sinus 90206831 Active 2021 Not Available [facility] 4 07:03:00 Chronic pain 30858254 Active Not Available [facility] 4 07:03:00 Fatigue 07442332 Active 2020 Not Available [facility] 4 07:03:00 Hemifacia l spasm 50875380 Active 2022 Not Available [facility] 4 07:02:59 Iron deficienc y anemia 99756534 Active 2022 Not Available [facility] 4 07:03:00 Mammograp hy abnormal 740539495 Active 2022 Not Available [facility] 4 07:02:59 Candidias is of skin 21010115 Active 2022 Not Available [facility] 4 07:02:59 Problem Notes None recorded. Procedures Surgical History Date Name Laterality Status Provider Name and Address Organization Details Recorded Time 02/14/20 23 Most Recent Bone Density completed Dayanna Hogan NP [address], [address], [place], [address], [facility] [employer] [facility] 02/16/2023 22:03:01 02/14/20 23 Most Recent Mammogram completed Dayanna Hogan NP [address], [address], [place], [address], [facility] [employer] [facility] 02/16/2023 22:05:06 09/22/19 22 Ankle Surgery completed Not Available [facility] 10/02/2022 06:55:00 03/04/20 21 Date of Last Colonoscopy completed Dayanna Manzano RN [facility] [employer] [facility] 11/28/2022 14:59:31 section completed Not Available [facility] 10/02/2022 06:55:00 Tonsillectomy completed Not Available [facility] 10/02/2022 06:55:00 Back Surgery completed Not Available [facility] 10/02/2022 06:55:00 procedure on knee completed Not Available [facility] 10/02/2022 06:55:00 Cholecystectomy completed Not Available [facility] 10/02/2022 06:55:00 Colonoscopy completed Not Available [facility] 10/02/2022 06:55:00 Imaging Results None recorded. Procedure Notes None recorded. Medical Equipment None Reported. Allergies Allergen ID Allergen Name Allergen Category Reaction Reaction Severity Criticality Documentation Date Start Date Code Code System Note Provider Name and Address Organization Details Recorded Time 25736 Lyrica medicatio n edema Not available Not available 10/02/2022 98047 1 RxNorm Not Available [facility] 3 07:01:13 66505 adhesive tape environme nt,medica tion swelling Not available Not available 10/02/2022 79009 UNK Not Available [facility] 3 07:01:13 19387 Ativan medicatio n Not available Not available Not available 11/28/202299708 9 RxNorm Dayanna Manzano RN [facility], [facility] [employer] [facility] 14:49:18 Medications Name Sig Start Date Stop [...] completed Patient wants to go back to [facility]. Not Available Not Available Not Available azithromy [...] Not Available Not Available Not Available Afluria 6963-9553 45 mcg (15 mcg x 3)/0.5 mL [...] Available Not Available No t Available Afluria 6878-2312 (PF) 45 mcg (15 mcg x 3)/0.5 mL intramusc ular syringe TO BE ADMINIST ERED BY [employer] FOR IMMUNIZA TION active Not Available Not Available No t Available Flucelvax Quad 3512-6174 (PF) 60 mcg (15 mcg x 4)/0.5 mL IM syringe TO BE ADMINIST ERED BY PHARMACI ST FOR IMMUNIZA TION 09/01 completed Not Available Not Available Not Available Fluzone High-Dose 2019- (PF) 180 mcg/0.5 mL intramusc ular syringe PHARMACI ST ADMINIST ERED IMMUNIZA TION ADMINIST ERED AT TIME OF DISPENSI NG 11/09 completed Not Available Not Available Not Available Fluad Quad 1043-5884 (65yr up)(PF) 60 mcg (15 mcg x 4)/0.5mL IM syringe PHARMACY ADMINIST GRIS 11/09 completed Not Available Not Available Not Available Vitals Date Recorded Body height Body mass index (BMI) Body weight Body temperature Heart rate Respiratory rate Oxygen saturation Oxygen saturation in Arterial blood by Pulse oximetry Systolic blood pressure Diastolic blood pressure Provider Name and Address Organization Details Last Updated DateTime 4 147.32 cm 30.6 kg/m2 94408.9 4 g 97.4 [degF] 67 /min 20 /min 98 % 98 % 160 mm[Hg] 100 mm[Hg] Dayanna Manzano RN [facility] [employer] [facility] 4 12:13:02 Date Recorded Body mass index (BMI) Body height Oxygen saturation Oxygen saturation in Arterial blood by Pulse oximetry Heart rate Respiratory rate Body temperature Body weight Systolic blood pressure Diastolic blood pressure Provider Name and Address Organization Details Last Updated DateTime 3 34.8 kg/m2 147.32 cm 97 % 97 % 82 /min 16 /min 97.7 [degF] 92363.7 7 g 117 mm[Hg] 78 mm[Hg] Not Available [facility] 3 06:56:57 Date Recorded Body mass index (BMI) Body height Oxygen saturation Oxygen saturation in Arterial blood by Pulse oximetry Heart rate Body temperature Body weight Systolic blood pressure Diastolic blood pressure Provider Name and Address Organization Details Last Updated DateTime 3 34.3 kg/m2 147.32 cm 93 % 93 % 60 /min 96.8 [degF] 99497.1 5 g 128 mm[Hg] 70 mm[Hg] Not Available [facility] 3 06:56:57 Date Recorded Body height Body mass index (BMI) Body weight Body temperature Heart rate Respiratory rate Oxygen saturation Oxygen saturation in Arterial blood by Pulse oximetry Systolic blood pressure Diastolic blood pressure Provider Name and Address Organization Details Last Updated DateTime 3 147.32 cm 30.3 kg/m2 14419.8 9 g 98 [degF] 74 /min 16 /min 97 % 97 % 110 mm[Hg] 80 mm[Hg] Dayanna Manzano RN [facility] 3 14:57:01 Date Recorded Body height Body mass index (BMI) Body weight Body temperature Heart rate Oxygen saturation Oxygen saturation in Arterial blood by Pulse oximetry Systolic blood pressure Diastolic blood pressure Provider Name and Address Organization Details Last Updated DateTime 3 147.32 cm 29.3 kg/m2 54780.9 3 g 95.9 [degF] 79 /min 96 % 96 % 128 mm[Hg] 80 mm[Hg] Dayanna Manzano RN [facility] 3 14:07:08 Social History Question Answer Notes LastModified by Organizat ion Details LastModified Time Tobacco Smoking Status Never Smoker Not Available [employer] 10/02/2022 06:54:52 Do You Have An Advance Directive? No Packet MIGRATION.10336 99081 Information not available 10/02/2022 Are You Blind Or Do You Have Difficulty Seeing? No MIGRATION.82303 80395 Information not available 10/02/2022 Is Blood Transfusion Acceptable In An Emergency? Yes Information not available 11/28/2022 What Is Your Level Of Caffeine Consumption? Heavy MIGRATION.59381 25340 Information not available 10/02/2022 How Much Tobacco Do You Chew? None MIGRATION.62436 10009 Information not available 10/02/2022 What Is Your Code Status? Full Code [facility] Information not available 11/28/2022 In The 14 Days Before Symptom Onset, Have You Had Close Contact With A Laboratory-confir med COVID-19 While That Case Was Ill? No MIGRATION.97459 18114 Information not available 10/02/2022 In The 14 Days Before Symptom Onset, Have You Had Close Contact With A Person Who Is Under Investigation For COVID-19 While That Person Was Ill? No MIGRATION.60218 52949 Information not available 10/02/2022 Are You Deaf Or Do You Have Serious Difficulty Hearing? No MIGRATION.84849 26184 Information not available 10/02/2022 What Type Of Diet Are You Following? REGULAR MIGRATION.17239 33424 Information not available 10/02/2022 Which Illicit Or Recreational Drugs Have You Used? None MIGRATION.22218 73435 Information not available 10/02/2022 Have There Been Any Changes To Your Family Or Social Situation? No MIGRATION.37916 82901 Information not available 10/02/2022 Do You Use Insect Repellent Routinely? No MIGRATION.52556 86233 Information not available 10/02/2022 Where Do You Live? [facility] MIGRATION.25140 50648 Information not available 10/02/2022 Do You Have A Medical Power Of Project Crew Worker? No MIGRATION.42584 21371 Information not available 10/02/2022 What Was The Date Of Your Most Recent Tobacco Screening? 01/23/2021 MIGRATION.28687 61599 Information not available 10/02/2022 Do You Have Any Pets? Yes MIGRATION.34283 71317 Information not available 10/02/2022 What Is Your Relationship Status? MIGRATION.70988 99089 Information not available 10/02/2022 Do You Use Your Seat Belt Or Car Seat Routinely? Yes MIGRATION.78605 80927 Information not available 10/02/2022 Do You Have Smoke And Carbon Monoxide Detectors In Your Home? Yes MIGRATION.21894 53605 Information not available 10/02/2022 Are There Any Smokers In Your House? No Information not available 11/28/2022 How Much Tobacco Do You Smoke? No MIGRATION.99747 15732 Information not available 10/02/2022 Do You Participate In Social Media? Yes MIGRATION.79947 84894 Information not available 10/02/2022 Do You Use Sunscreen Routinely? No MIGRATION.24279 35942 Information not available 10/02/2022 Have You Recently Traveled Abroad? No MIGRATION.10856 71966 Information not available 10/02/2022 Do You Have Difficulty Walking Or Climbing Stairs? Yes MIGRATION.82520 13961 Information not available 10/02/2022 Sex: Female Functional Status Question Answer Note LastModified by Organizat ion Details LastModified Time What is your level of alcohol consumption? None MIGRATION.890103 4726 Information not available 10/02/2022 Do you or have you ever used smokeless tobacco? Never used smokeless tobacco MIGRATION.163652 3108 Information not available 10/02/2022 Do you have transportation difficulties? No MIGRATION.375327 1204 Information not available 10/02/2022 Are you able to walk? NODEP Information not available 11/28/2022 Do you have difficulty doing errands alone? Yes Information not available 11/28/2022 Are you able to care for yourself? Yes MIGRATION.133934 0831 Information not available 10/02/2022 What is your occupation? Retired MIGRATION.154750 8417 Information not available 10/02/2022 Do you have difficulty dressing or bathing? No MIGRATION.033215 1230 Information not available 10/02/2022 Do you or have you ever used e-cigarettes or vape? Never used electronic cigarettes MIGRATION.983953 7350 Information not available 10/02/2022 What is your exercise level? None MIGRATION.776817 7413 Information not available 10/02/2022 Mental Status Question Answer Note LastModified by Organizat ion Details LastModified Time Do you feel stressed (tense, restless, nervous, or anxious, or unable to sleep at night)? [id number] MIGRATION.07384621 26 Information not available 10/02/2022 Do you have difficulty concentrating, remembering or making decisions? Yes MIGRATION.19340191 26 Information not available 10/02/2022 Family History Relationship Description Onset Age of this Age Resolved Age Notes LastModified by Organization Details LastModified Time Mother Family history of breast cancer gene BRCA mutation MIGRATION.167 [id number] Not available 10/02/2022 06:55:01 Paternal Grandfather Malignant tumor of colon MIGRATION.637 1635754 Not available 10/02/2022 06:55:01 Paternal Grandmother Malignant tumor of colon MIGRATION.440 0588183 Not available 10/02/2022 06:55:01 Medical History Condition [...] Recorded Time Tdap 3 completed Not Available [facility] 08/27/2023 07:03:00 RSV, recombinant, protein subunit RSVpreF, adjuvant reconstituted, 0.5 mL, PF 3 completed Not Available [facility] 08/27/2023 07:03:00 SARS-COV-2 (COVID-19) vaccine, UNSPECIFIED 1 completed Not Available [facility] 08/27/2023 07:03:00 Influenza, high-dose, quadrivalent, PF 2 completed Not Available [facility] 08/27/2023 07:03:00 Influenza, high-dose, quadrivalent, PF 1 completed Not Available [facility] 08/27/2023 07:03:00 COVID-19 Non-US Vaccine, Product Unknown 1 completed Not Available [facility] 08/27/2023 07:03:00 SARS-COV-2 (COVID-19) vaccine, UNSPECIFIED 1 completed Not Available [facility] 08/27/2023 07:03:00 pneumococcal polysaccharide PPV23 0 completed Not Available [facility] 08/27/2023 07:03:00 Influenza, high-dose, trivalent, PF 8 completed Not Available [facility] 08/27/2023 07:03:00 Pneumococcal conjugate PCV 13 5 completed Not Available [facility] 08/27/2023 07:03:00 Influenza, split virus, trivalent, preservative 3 completed Not Available [facility] 08/27/2023 07:03:00 Tdap 2 completed Not Available [facility] 08/27/2023 07:03:00 Influenza, split virus, quadrivalent, PF 6 completed Not Available [facility] 08/27/2023 07:03:00 Pneumococcal conjugate PCV 13 5 completed Not Available [facility] 08/27/2023 07:03:00 Influenza, split virus, trivalent, preservative 4 completed Not Available [facility] 08/27/2023 07:03:00 Influenza, split virus, quadrivalent, preservative 5 completed Not Available [facility] 08/27/2023 07:03:00 zoster live 4 completed Not Available [facility] 08/27/2023 07:03:00 Past Encounters Encounter ID Performer Location Encounter Start Date Encounter Closed Date Diagnosis/Indication Diagnosis SNOMED-CT Code Diagnosis ICD10 Code Diagnosis Note [id number] Joe Cárdenas MD [facility] [address] [place] [address] 1 11/09/2020 00:00:00 11/10/2020 18:43:13 [id number] _ATHN_MIGR ATION_1 _ATHENA_M IGRATION_ DEFAULT_1 _1 , 01/03/2021 00:00:00 01/03/2021 15:41:39 [id number] [facility] [place] [address] [place] [address] 01/23/2021 00:00:00 01/23/2021 19:30:45 [id number] Joe Cárdenas MD [facility] [address] [place] [address] 03/05/2021 00:00:00 03/05/2021 11:47:09 [id number] Joe Cárdenas MD [facility] [address] [place] [address] 1 05/11/2021 00:00:00 05/11/2021 17:50:50 [id number] Joe Cárdenas MD [facility] [address] [place] [address] 06/19/2021 00:00:00 06/19/2021 19:33:00 [id number] [facility] [place] [address] [place] [address] 06/21/2021 00:00:00 06/21/2021 16:57:17 [id number] [facility] [place] [address] [place] [address] 07/23/2021 00:00:00 07/23/2021 13:47:23 [id number] Joe Cárdenas MD [facility] [place] [address] [place] [address] 1 08/15/2021 00:00:00 08/15/2021 16:27:16 [id number] Joe Cárdenas MD [facility] [place] [address] [place] [address] 09/07/2021 00:00:00 09/07/2021 12:57:10 [id number] Joe Cárdenas MD [facility] [place] [address] [place] [address] 10/10/2021 00:00:00 10/10/2021 12:23:16 [id number] [facility] [place] [address] [place] [address] 11/07/2021 00:00:00 11/07/2021 16:01:42 [id number] Joe Cárdenas MD [facility] [place] [address] [place] [address] 11/14/2021 00:00:00 11/14/2021 15:15:31 [id number] Joe Cárdenas MD [facility] [place] [address] [place] [address] 01/17/2022 00:00:00 01/18/2022 17:48:51 [id number] JANES Jean [facility] [place] [facility] [place] [address] [place] [address] 02/19/2022 00:00:00 02/19/2022 16:22:11 [id number] JANES Jean [facility] [place] [facility] [place] [address] [place] [address] 04/02/2022 00:00:00 04/02/2022 15:56:46 [id number] Joe Cárdenas MD [facility] [place] [address] [place] [address] 06/06/2022 00:00:00 06/06/2022 17:39:31 [id number] Joe Cárdenas MD [facility] Family [address] [address] 08/16/2022 00:00:00 08/16/2022 12:19:29 [id number] Joe Cárdenas MD [address] [address] 09/20/2022 00:00:00 09/20/2022 11:04:09 [id number] Evie Yepez, [employer] [place] [facility] [place] [address] [place] [address] 10/01/2022 00:00:00 10/01/2022 15:54:32 [id number] Dayanna Hogan NP [address] [address] 11/28/2022 14:39:09 11/28/2022 15:53:35 Hemifacial spasm [id number] G51.[address] Foreman and will be seeing Dr. Tyler at [facility] for movement disorder clinic.No change in current meds. [id number] Dayanna Hogan NP [address] [address] 01/17/2023 13:56:27 01/17/2023 16:20:21 Asthma [id number] J45.909 Albuterol HFA Hypothyroidism 66233024 E03.9 Levothyrox ine 150 mcg po daily. Hyperlipidemia 26121936 E78.5 low fat diet. Gastroesop hageal reflux disease 439189100 K21.9 stable Restless legs 02040762 G 25.81 ropinirole 0.25 mg po nightly. Depressive disorder 3548 9007 F32.9 Bupropion HCL SR 150 mg po bid.duloxe naren 60 mg po daily. Iron defic iency anemia 58143796 D50.9 ferrous sulfate 325 mg po daily. Allergic rhinitis 740330 04 J30.9 montelukas t 10 mgLoratadi ne 10 mg. Screening for malignant neoplasm of breast 838004721 Z12.39 mammogram ordered 01/17/23 Postmenopausal state 764 44922 Z78.0 Dexa ordered 01/17/23 [id number] Dayanna Hogan NP [facility] [address] [address] 08/15/2023 11:47:05 08/15/2023 16:16:52 Asthma 186137100 J45.909 Albuterol HFA Hypothyroidism 69898364 E03.9 Levothyrox ine 125 mcg po daily to levothyrox ine 100 mcg po daily.TSh not existent. Reduced levothyrox ine. new dose sent. Labs in 8 weeks.Chol esterol controlled . 07/14/23 new orders due before refill. Currently on levothyrox ine 100 mcg po daily.07/04 11/24 TSh low. Reduce to levothyrox ine 88 mcg po daily. Hyperlipidemia 09665421 E78.5 low fat diet. Essential hypertension 90065166 I10 monitor prn Gastroesop hageal reflux disease 835988108 K21.9 stable Restless legs 62008682 G 25.81 ropinirole 0.25 mg po nightly. Depressive disorder 3548 9007 F32.9 Bupropion HCL SR 150 mg po bid. Try for bupropion HCL XL 300 mg po daily for cost savings.du loxetine 60 mg po daily. Iron defic iency anemia 72671624 D50.9 ferrous sulfate 325 mg po daily. Allergic rhinitis 997450 04 J30.9 montelukas t 10 mgLoratadi ne 10 mg. 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 Hypokalemia 90598814 E87 .6 Health Concerns Section Related Observation LastModified by Organization Detai ls LastModified Time None Recorded Concern Status LastModified by Organization Details LastModified Time None Recorded Advance Directives Directive N: Packet Payers Encounter Date Sequence Insurance Name Policy Number Policy Luna Covered Member ID Luna Member ID Guarantor Name 11/28/2022 1 [place] Alisa Keithes [id number] Alisa Chamroro Pipes 11/28/2022 2 AARP (MEDICARE SUPPLEMENT) Alisa Chamorro Pipes [id number] Alisa Chamorro Pipes 01/17/2023 1 [place] Alisa Chamorro Pipes [id number] Alsia Ashtyn Gonzalez 01/17/2023 2 AAR (MEDICARE SUPPLEMENT) Alisa Gonzalez [id number] Alisa Gonzalez 08/15/2023 1 [place] Alisa Gonzalez [id number] Alisa Gonzalez 08/15/2023 2 AAR (MEDICARE SUPPLEMENT) Alisa Gonzalez [id number] Alisa Gonzalez Notes Date Note Type Note Provider Name [...] give her relief from legs being restless. [facility] notes not received previous were brought to office today and scanned into [facility]. Will be seeing sleep specialist Dr. Kumari December 23, 2022. Was seeing evie yepez process control specialist before but Dr. Foreman suggested a MD may give more options.Pt has RLS.Will be seeing movement specialist at [facility] Dr Tyler January 2023. Dayanna Hogan, RENEA [address] [facility], [facility] [address], [place], [address], [place] - [facility] [employer] 11/28/2022 15:52:38 01/17/2023 text/html Here for check [...] out. On walker. Dayanna Hogan NP [address] [facility], [facility] [address], [place], [address], [facility] 01/17/2023 16:06:43 08/15/2023 text/html Here for check u p. Asthma- stableThyroid- no complaintslipid- trying to eat well.htn- Home bp doing well.Gerd- stableRLS- still feeling daria all the time as well as whole body.Depression- Stable on cymbalta and bupropion. Clonazepam added (to help claustrophobia with CPAP), Oxcarbazepine (for trigeminal neuralgia), and upped dose of carbidopa/levodopa. Per neurology.Was seeing Dr. Foreman. Dayanna Hogan NP [address] [facility], [facility] [address], [place], [address], [facility] 08/15/2023 17:01:26 OBGyn Episode No OBEpisode recorded.
--- OUTSIDE RECORDS SUMMARY | 2025-01-07 01:06 | XMS_ITS | CONTINUITY OF CARE DOCUMENT ---
Author Name catrinadavid catrinadavid Address Unknown Organization [facility] Address [address] [place] [address] Phone [phone] Care Team Providers Care Line Maintenance Supervisor Name Role Phone Wilber ARNOLD, Chucho Unavailable Madai DRAWING HAND-BC, Dayanna Medina Unavailable [place] DRAWING HAND-BC, Dayanna Medina Unavailable PROBLEMS Condition Status Date Provider Notes Cardiology examination active Chucho farah MD Preoperative cardiovascular examination active Chucho Merino MD Cardiomegaly active Chucho Merino MD GERD (gastroesophageal reflux disease) active Chucho Merino MD Hypothyroidism active Chucho Merino MD Restless leg syndrome active Chucho Merino MD ENCOUNTERS Date Type Provider Location Encounter Diag nosis - In-person encounter Office Visit Chucho Merino MD [place] [facility] Cardiology examinationPreoperative cardiovascular examinationCardiomegalyGERD (gastroesophageal reflux [...] Payer name Policy type / Coverage type [place] red green party ID AAR [employer] [id number] [place] Medicare [id number] ADVANCE DIRECTIVES Name Date DISCUSSED - NO DECISION MADE TREATMENT PLAN Date Name Performer [id number],C, O n omeprazole Margaret Coronacan [id number],C, C ontinues on replacement therapy Margaret Coronacan [id number],C,S he had a chest x-ray at [facility] and was told her heart was enlarged. She had an echo done today. The left ventricular size and systolic function is normal. No wall motion abnormality noted. She is planned to undergo surgery which she can undergo at an acceptable risk. Chucho Merino MD [id number],C,S he had a chest x-ray at [facility] and was told her heart was enlarged. Chucho Merino MD [id number],C,S he had a chest x-ray at [facility] as preop for right ankle [...] Wei Cardiology:She had a chest x-ray at [facility] and was told her heart was enlarged. She had an echo done today. The left ventricular size and systolic function is normal. No wall motion abnormality noted. She is planned to undergo surgery which she can undergo at an acceptable risk. Chucho Merino MD Cardiology:She had a chest x-ray at [facility] and was told her heart was enlarged. Chucho Merino MD Cardiology:She had a chest x-ray at [facility] as preop for right ankle [...]
--- OUTSIDE RECORDS SUMMARY | 2025-01-07 01:06 | XMS_ITS | Patient Health Record ---
Author Organization [facility] Address [address] [place], [place] [id number] Care Team Providers Care Nurse Substance Abuse Name Role Phone JM FAIRCHILD Unavailable [phone] Dayanna Aj Unavailable Unavailable Allergies Allergen (clinical drug ingredient) Drug/Non Drug Allergy documented on EMR Reaction Allergy Type Onset Date Status Adhesive Unknown Allergy Active Reason For Referral No Information Medications Medication SIG (Take, Route, Frequency, Duration) Notes Start Date End Date Status Gabapentin 300 MG Oral for 90 Days Active Klor-Con M20 20 MEQ Oral for 90 Days Active Levothyroxine Sodium 100 MCG Oral for 90 Days Active Losartan Potassium 25 MG Oral for 90 Days Active Montelukast Sodium 10 MG Oral for 90 Days Active Omeprazole 40 MG Oral for 90 Days Active buPROPion HCl ER (XL) 300 MG TAKE 1 TABL ET BY MOUTH EVERY MORNING Oral for 90 Days Active OXcarbazepine 150 MG TAKE 1 (ONE) TABLET BY MOUTH 2 TIMES DAILY Oral for 90 Days Active Carbidopa-Levodopa ER 50-200 MG TAKE 1 TABLET BY MOUTH EVERYDAY AT BEDTIME Oral for 90 Days Active clonazePAM 0.5 MG Oral for 90 Days Active DULoxetine HCl 60 MG Oral for 90 Days Active Ferrous Sulfate 325 (65 Fe) MG TAKE 1 TABLET BY MOUTH EVERY OTHER DAY Oral for 90 Days Active Vital Signs Height-cm 147.32 cm 07/15/2024 Weight-kg 70.31 kg 07/15/2024 Height 58 in 07/15/2024 Weight 155 lbs 07/15/2024 BMI 32.39 kg/m2 07/15/2024 Encounters Encounter Location Date Provider Diagnosis [facility] [address] [place], [place] [id number] 07/15/2024 JM FAIRCHILD Sprain of anterior talofibular [...] Date Coverage End Date Medicare Part B [place] [address] [place] [address] [id number] Gayla Heather Self - patient is the insured 8 [facility] Medicare Supplement [address] [place], [place] [id number] Gayla Heather Self - patient is the [...]
[2025-01-07 12:14] VITALS: BP 159/86; PULSE 79; RESP 16; TEMP 36; O2SAT 99
[2025-01-07] MEDS: LACTATED RINGERS 1,000 ML 150 ML IV CONT (12:24)
--- NOTE | 2025-01-07 12:43 | WPDANESEPPF ---
Anes - Initial Pre Proc Eval Procedure: Operation Date: 01/07/25 13:30 Proposed Procedures p Esophagogastroduodenoscopy & Colonoscopy - Yared Castro MD Date/Time: 01/07/25 12:43 Surgeon: Yared Castro MD Pre Op Diagnosis: Gastro-esophageal reflux disease without esophagit Patient Data Age: 69 Gender: F Height: 1.47 m Weight: 80.6 kg Last Vital Signs Temp 36.0 C L 01/07/25 12:14 Pulse 79 01/07/25 12:14 Resp 16 01/07/25 12:14 BP 159/86 H 01/07/25 12:14 Pulse Ox 99 01/07/25 12:14 O2 Del Method Room Air 01/07/25 12:14 Allergies Allergy/AdvReac Type Severity Reaction Status Date / Time pregabalin Allergy Intermediate hand/feet/leg Verified 01/07/25 12:10 swelling lorazepam (From Ativan) AdvReac Mild other Verified 01/07/25 12:10 adhesive tape Allergy Severe Blister Uncoded 01/07/25 12:10 lorazepam Allergy Severe body Uncoded 01/07/25 12:10 spasms and anxiety attack Home Medications ?Medication ?Instructions ?Recorded ?Confirmed ?Type albuterol sulfate 90 mcg/actuation 90 mcg inhalation PRN PRN 06/16/19 01/07/25 History aerosol inhaler Bronchospasm carbidopa 25 mg-levodopa 100 mg 1 tablet PO TID parkinsons 06/16/19 01/07/25 History tablet hydrocodone 7.5 mg-acetaminophen 1 tablet PO Q6H PRN Pain 06/16/19 12/28/24 History 325 mg tablet Allergy Relief (loratadine) 10 mg BYMOUTH DAILY 07/15/19 01/07/25 History benztropine 1 mg tablet 1 mg PO ONCE PRN take at onset of 11/22/22 12/28/24 Rx abnormal facial movements #5 tabs clonazepam 1 mg tablet 1 mg PO DAILY 09/03/23 01/07/25 History omeprazole 40 mg capsule,delayed 40 mg PO DAILY #90 caps 04/08/24 01/07/25 Rx release losartan 25 mg tablet 25 mg PO DAILY 08/20/24 01/07/25 History gabapentin 300 mg capsule 300 mg PO BID #180 caps 10/19/24 01/07/25 Rx montelukast 10 mg tablet 10 mg PO DAILY #90 tabs 10/28/24 01/07/25 Rx ondansetron 4 mg disintegrating 4 mg PO Q8H PRN nausea and 11/11/24 12/28/24 Rx tablet vomiting #60 tabs oxcarbazepine 150 mg tablet 150 mg PO BID 11/11/24 01/07/25 History (Trileptal) potassium chloride 20 mEq 20 meq PO DAILY #90 tabs 11/11/24 01/07/25 Rx tablet,extended release(part/cryst) (Klor-Con M) levothyroxine 88 mcg tablet 88 mcg PO DAILY #90 tabs 11/23/24 01/07/25 Rx (Unithroid) duloxetine 60 mg capsule,delayed 60 mg PO DAILY #90 caps 12/09/24 01/07/25 Rx release carbidopa ER 50 mg-levodopa 200 mg 1 tablet PO BID 12/28/24 01/07/25 History tablet,extended release bupropion HCl 300 mg 24 hr tablet, 300 mg PO QAM #90 tabs 12/29/24 01/07/25 Rx extended release dicyclomine 20 mg tablet 20 mg PO BID #180 tabs 01/07/25 Rx Patient hx anesthesia problems: none Family hx anesthesia problems: none Results Review: All pre-operative results and documents have been reviewed as part of the pre-operative evaluation. [facility] Past Medical History Medical History COSTA on CPAP Vitamin D deficiency Obese Subcutaneous mass Pilar cyst Hidradenitis Epidermal inclusion cyst Hypothyroidism Allergies Depression GERD with apnea Hepatitis A Peripheral neuropathy Restless leg Surgical History Surgical History H/O colonoscopy with polypectomy H/O lumpectomy Status post ORIF of fracture of ankle times 2 Hx of cholecystectomy History of right salpingo-oophorectomy H/O dilation and curettage History of tonsillectomy H/O arthroscopic knee surgery History of total bilateral knee replacement S/P left rotator cuff repair H/O section History of orthopedic surgery Family History Family History Mother Parkinson disease Family history of osteoarthritis Breast cancer Other Muscular dystrophy Grandparent Colon cancer Father Diabetes mellitus Social History Social History Social History: 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 She designated herself is a full code. 12/08/24 Very confident with medical forms Smoking status: Never smoker Alcohol intake: current Alcohol use details: rarely Substance use: never Substance use type: does not use Do You Feel Safe in your Home?: Yes Lack of Transportation: No Lack of Food: Never True Current Housing: I Have Housing Concerned About Future Housing: No Difficulty Paying Gas/Electric Bills: No Difficulty Paying for Meds: No Currently Unemployed: No Education: Bachelor's Degree Difficulty w/ Childcare or Family Care: No Living arrangements: with family Additional living arrangements comments: Her Elliott is a durable power tax associate attorney. She has 2 children. 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 Gender identity (if verbalized by the patient): Female Spiritual care concerns: No Agree to blood products: Yes Anes - Eval Final PreProcedure Day of Procedure 01/07/25 12:43 Patient weight: obese Heart: regular rate and rhythm Lungs: clear to auscultation Airway: Mallampati scale class II Neurological: alert and oriented Last oral intake: >/= 8 hours ASA classification: III Emergent: no Anesthetic plan: proceed Anesthesia type and monitoring: general GIVS and standard monitoring Results Review: All pre-operative results and documents have been reviewed as part of the pre-operative evaluation. Informed Consent: The patient's anesthetic plan and its attendant risks and benefits were discussed with the patient/family/POA. Questions were solicited and answers provided to the satisfaction of the patient/family/POA.
--- NOTE | 2025-01-07 12:55 | PM.HPGS ---
History of Present Illness History of Present Illness Consent: Risks, benefits, and alternatives have been discussed and questions answered. Patient agrees to proceed with procedure. Chief complaint: Gastro-esophageal reflux disease without esophagit Narrative: Heather Shukla is a 69 year old female with gerd, also ibs-mixed with last colonoscopy 2020, intermittent pain in rt abd Review of Systems Review of Systems: All systems reviewed & are unremarkable except as noted in HPI and below PMFSH Past Medical History Medical History COSTA on CPAP Vitamin D deficiency Obese Subcutaneous mass Pilar cyst Hidradenitis Epidermal inclusion cyst Hypothyroidism Allergies Depression GERD with apnea Hepatitis A Peripheral neuropathy Restless leg Surgical History Surgical History H/O colonoscopy with polypectomy H/O lumpectomy Status post ORIF of fracture of ankle times 2 Hx of cholecystectomy History of right salpingo-oophorectomy H/O dilation and curettage History of tonsillectomy H/O arthroscopic knee surgery History of total bilateral knee replacement S/P left rotator cuff repair H/O section History of orthopedic surgery Family History Family History Mother Parkinson disease Family history of osteoarthritis Breast cancer Other Muscular dystrophy Grandparent Colon cancer Father Diabetes mellitus Social History Social History Social History: 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 She designated herself is a full code. 12/08/24 Very confident with medical forms Smoking status: Never smoker Alcohol intake: current Alcohol use details: rarely Substance use: never Substance use type: does not use Do You Feel Safe in your Home?: Yes Lack of Transportation: No Lack of Food: Never True Current Housing: I Have Housing Concerned About Future Housing: No Difficulty Paying Gas/Electric Bills: No Difficulty Paying for Meds: No Currently Unemployed: No Education: Bachelor's Degree Difficulty w/ Childcare or Family Care: No Living arrangements: with family Additional living arrangements comments: Her Elliott is a durable power insurance defense attorney. She has 2 children. 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 Gender identity (if verbalized by the patient): Female Spiritual care concerns: No Agree to blood products: Yes Meds Home Medications and Allergies Home Medications ?Medication ?Instructions ?Recorded ?Confirmed ?Type albuterol sulfate 90 mcg/actuation 90 mcg inhalation PRN PRN 06/16/19 01/07/25 History aerosol inhaler Bronchospasm carbidopa 25 mg-levodopa 100 mg 1 tablet PO TID parkinsons 06/16/19 01/07/25 History tablet hydrocodone 7.5 mg-acetaminophen 1 tablet PO Q6H PRN Pain 06/16/19 12/28/24 History 325 mg tablet Allergy Relief (loratadine) 10 mg BYMOUTH DAILY 07/15/19 01/07/25 History benztropine 1 mg tablet 1 mg PO ONCE PRN take at onset of 11/22/22 12/28/24 Rx abnormal facial movements #5 tabs clonazepam 1 mg tablet 1 mg PO DAILY 09/03/23 01/07/25 History omeprazole 40 mg capsule,delayed 40 mg PO DAILY #90 caps 04/08/24 01/07/25 Rx release losartan 25 mg tablet 25 mg PO DAILY 08/20/24 01/07/25 History gabapentin 300 mg capsule 300 mg PO BID #180 caps 10/19/24 01/07/25 Rx montelukast 10 mg tablet 10 mg PO DAILY #90 tabs 10/28/24 01/07/25 Rx ondansetron 4 mg disintegrating 4 mg PO Q8H PRN nausea and 11/11/24 12/28/24 Rx tablet vomiting #60 tabs oxcarbazepine 150 mg tablet 150 mg PO BID 11/11/24 01/07/25 History (Trileptal) potassium chloride 20 mEq 20 meq PO DAILY #90 tabs 11/11/24 01/07/25 Rx tablet,extended release(part/cryst) (Klor-Con M) levothyroxine 88 mcg tablet 88 mcg PO DAILY #90 tabs 11/23/24 01/07/25 Rx (Unithroid) duloxetine 60 mg capsule,delayed 60 mg PO DAILY #90 caps 12/09/24 01/07/25 Rx release carbidopa ER 50 mg-levodopa 200 mg 1 tablet PO BID 12/28/24 01/07/25 History tablet,extended release bupropion HCl 300 mg 24 hr tablet, 300 mg PO QAM #90 tabs 12/29/24 01/07/25 Rx extended release dicyclomine 20 mg tablet 20 mg PO BID #180 tabs 01/07/25 Rx Allergies Allergy/AdvReac Type Severity Reaction Status Date / Time pregabalin Allergy Intermediate hand/feet/leg Verified 01/07/25 12:10 swelling lorazepam (From Ativan) AdvReac Mild other Verified 01/07/25 12:10 adhesive tape Allergy Severe Blister Uncoded 01/07/25 12:10 lorazepam Allergy Severe body Uncoded 01/07/25 12:10 spasms and anxiety attack Vital Signs Vital Signs - 24 hr 01/07/25 12:14 Temperature 96.8 F L Pulse Rate 79 Respiratory Rate 16 Blood Pressure 159/86 H Pulse Oximetry 99 Oxygen Delivery Room Air Exam Const: General: comfortable and no acute distress HENMT: Face/Nose/Sinus: Normal nares present Eyes: General: appearance normal, both eyes and all related structures Neck: Neck: no JVD Resp: Auscultation: clear to auscultation bilaterally Cardio: Rate: regular rate Rhythm: regular rhythm GI: Inspection: non-distended GI Palp: Yes Soft to palpation Skin: General skin exam: normal color Neuro: General: gait normal Speech: normal speech Extrem: General: normal to inspection Psych: Mental Status: mental status grossly normal Assessment and Plan Assessment and plan (1) GERD (gastroesophageal reflux disease): Qualifiers: Esophagitis presence: esophagitis presence not specified Qualified Code(s): K21.9 - Gastro-esophageal reflux disease without esophagitis Code(s): K21.9 - Gastro-esophageal reflux disease without esophagitis Status: Acute Assessment and Plan: egd (2) RLQ abdominal pain: Code(s): R10.31 - Right lower quadrant pain Status: Acute Assessment and Plan: colonoscopy (3) IBS (irritable colon syndrome): Qualifiers: Irritable bowel syndrome type: with both diarrhea and constipation Qualified Code(s): K58.2 - Mixed irritable bowel syndrome Code(s): K58.9 - Irritable bowel syndrome, unspecified Status: Acute
--- NOTE | 2025-01-07 13:03 | SUR.OPER ---
EGD [id number]. Colonoscopy start time 1306.
--- NOTE | 2025-01-07 13:19 | S_PTH ---
PATIENT: Heather Shukla LOC: [facility] Oh#:[id number] AGE/SX: 69/F ROOM: RE01/07/[address]: Yared Castro MD : 1955 BED: DIS: 01/07/2025 SPEC #: [id number] RECD: 01/10/25 07:19 STATUS: [facility] [facility] #: [id number] ALEKS: 01/07/25 13:[address]: Yared Castro DEPT: [facility] Surgical RECD BY: Carly Jeong ENTERED: 01/10/25 07:21 SP TYPE: Surgical OTHR DR: Dayanna Aj, KHARI Tissues: A - Small Bowel Bx B - Gastric Biopsy C - Esophageal Biopsy D - Colon Polypectomy E - Colon Polypectomy F - Colon Biopsy Procedures: Hematoxylin and Eosin Stain Gross and Microscopic Level 4
[2025-01-07 13:23] VITALS: BP 124/64; PULSE 76; RESP 23; O2SAT 99
[2025-01-07 13:33] VITALS: BP 155/61; PULSE 63; RESP 22; O2SAT 97
[2025-01-07 13:43] VITALS: BP 119/79; PULSE 60; RESP 19; O2SAT 94
== END 2025-01-07 14:03 | disposition home or self-care (01) ==
PROVIDERS: PCP Nurse Practitioner Family; Referring Provider Nurse Practitioner Family; Visit Provider Internal Medicine Gastroenterology
PROC: 0DJ08ZZ Inspection of Upper Intestinal Tract, Via Natural or Artificial Opening Endoscopic (ICD-10-PCS; CPT 45378; principal; 2025-01-07 13:30)
DX: Z12.11 Encounter for screening for malignant neoplasm of colon (principal); D12.0 Benign neoplasm of cecum; K63.5 Polyp of colon; K64.8 Other hemorrhoids; K21.00 Gastro-esophageal reflux disease with esophagitis, without bleeding; K58.2 Mixed irritable bowel syndrome; G47.33 Obstructive sleep apnea (adult) (pediatric); E55.9 Vitamin D deficiency, unspecified; E03.9 Hypothyroidism, unspecified; F32.A Depression, unspecified; G62.9 Polyneuropathy, unspecified; G25.81 Restless legs syndrome; E66.9 Obesity, unspecified; Z68.37 Body mass index [BMI] 37.0-37.9, adult; Z79.51 Long term (current) use of inhaled steroids; Z79.891 Long term (current) use of opiate analgesic; Z99.89 Dependence on other enabling machines and devices; Z98.890 Other specified postprocedural states; Z90.49 Acquired absence of other specified parts of digestive tract; Z80.3 Family history of malignant neoplasm of breast; Z80.0 Family history of malignant neoplasm of digestive organs
CPT/HCPCS: 43239; 45385; 45380; 88305; J2003; J2704; J7120

== ENCOUNTER 2025-02-10 14:21 | Outpatient (CLI) | payer MEDICARE, SELFPAY ==
--- NOTE | ~2025-02-10 | MM_ITS ---
EXAMINATION: MM screening marcial BI w misha HISTORY: Screening mammogram, family history of breast cancer in her mother. TECHNIQUE: Craniocaudal and mediolateral oblique 3-D tomosynthesis images were obtained and synthetic 2-D images were generated. CAD analysis was submitted and interpreted. COMPARISON: No prior mammogram is available for comparison at this institution. BREAST PARENCHYMAL COMPOSITION:Not Dense. There are scattered areas of fibroglandular density. FINDINGS: No suspicious mass, calcification, or architectural distortion are identified in either dara ast to suggest malignancy. There has been no suspicious interval change. IMPRESSION: No mammographic evidence of malignancy. Recommend routine screening mammography in one year. BI-RADS Category 1: Negative Reviewed, dictated and finalized at location .
--- OUTSIDE RECORDS SUMMARY | 2025-02-10 14:24 | XMS_ITS | Data Portability ---
Author Organization [place] - [facility] [place], Main Office Address [address] [place] [address] Assessment Encounter Date Assessment Date Assessment LastModified by Organization Details LastModified Time 01/17/2023 01/17/2023 discussed getting shingles and td vaccine. Not available 01/17/2023 14:30:58 08/15/2023 08/15/2023 discussed getting shingles and td vaccine. Not available 08/15/2023 12:18:19 Plan of Treatment Reminders Order Date Submit Date Provider Last Modified By Organization Details Last Modified Time Details Appointments None recorded. Lab lipid panel, serum [address] (Admitting), [address] [place] [address], [phone], 3 08:00:10 TSH, serum, reflex free T4 2022 023 [facility] (Lab), [address] [place] [address], [address], 3 12:25:39 Referral None recorded. Procedures None recorded. Surgeries None recorded. Imaging MAMMO, screening, digital, bilateral 2022 023 [email or web address] [id number] Not available 3 09:06:22 bone density 2022 023 Not available 3 08:57:14 Medication Orders albuterol sulfate HFA 90 mcg/actuati on aerosol inhaler 2023 024 [id number], [address], [place], [address], 4 12:54:52 bupropion HCl XL 300 mg 24 hr tablet, extended release 2023 024 [id number], [address] [facility], [place], [phone], 4 12:54:56 Klor-Con M20 mEq tablet,exte nded release 2023 024 [facility], [address], [place], [address], 4 12:54:52 duloxetine 60 mg capsule,del ayed release 2023 024 [facility], [address], [place], [address], 4 12:54:52 Patient TargetsNo targets recorded. Patient Instructions Encounter Date Encounter Id Patient Instructions Last Modified By Organization Details Last Modified Time 01/17/2023 [id number] fu in 6 mo for check up 30 min Not available 01/17/2023 16:05:19 08/15/2023 [id number] Fu with new pcp in 1-3 mo. 08/15/23 pt aware of samira departure Not available 08/15/2023 12:19:03 Reason for Referral None Reported. Results Created Date Observation Date Name Description Value Unit Range Abnormal Flag Note LastModifiedBy Organization Detail LastModifiedTime 08/22/1908/22/2022 imagi ng/di agnos tic resul t No observ ation record ed. [id number] [facility] [address], [place], [address], 10/02/2022 07:01:19 11/17/19 23 11/16/2022 CT, brain , w/o contr ast No observ ation record ed. [facility] [address], [place], [address], 11/28/2022 15:21:30 11/20/19 23 11/17/2022 iain nuous EEG monit oring , profe sugey al compo nent; 12-26 hrs, with VEEG (PROC ) No observ ation record ed. [facility] [address], [place], [address], 11/28/2022 15:21:29 02/15/20 23 lipid panel , serum [facility] [address] [place] [address] Patien t Name: ALISA GONZALEZ ion #: [id number] Sex: F : 1954 2 Dictat ed By: Baldomero trevino Attend ing Physic kain: SAMM HOGAN [facility] Physic kain: SAMIRA KEMP Exam Date: 2022 13:43 PM Exam Name: XR DEXA AXIAL/ HIP/PE LVIS/S PINE Admitt ing Diagno sis(es ): CLINIC AL HISTOR Y: Postme nopaus al screen ing for osteop orosis . TECHNI QUE: The study was perfor med using a Zytoprotec Unit. Left proxim al femora l and [...] at 2022 08:03: 02 AM Page [address] (Imaging) [address] [place], [address], 02/21/2023 08:00:10 02/15/20 23 02/13/2023 bone densi ty No observ ation record ed. [address] [place], [address], 02/18/2023 15:08:12 02/15/20 23 MAMMO , scree michael, digit al, bilat eral [facility] [address] [place] [address] [phone] Patien t Name: ALISA GONZALEZ Access ion #: [id number] Sex: F : 1954 2 Dictat ed By: Baldomero trevino Attend ing Physic kain: SAMM HOGAN [facility] Physic kain: SAMIRA KEMP Exam Date: 2022 [...] at 2022 08:11: 43 AM Page 1 [facility] (Imaging) [address] [place], [address], 02/18/2023 15:08:13 03/07/20 23 03/07/2023 [place], [facility] [address] [address] Patien t Name: ALISA GONZALEZ ion #: [id number] Sex: F : 1954 7 Dictat [...] at 2022 14:21: 10 PM Page [address] (Imaging) [address] [place], [address], 03/12/2023 15:17:05 03/07/20 23 03/07/2023 TSH, serum , refle x free T4 [facility] [address] [place] [address] Patien t Name: ALISA GONZALEZ ion #: [id number] Sex: F : 1954 7 Dictat ed By: Bertin Patton Attend ing Physic kain: SAMM HOGAN Orderi Physic kain: SAMM HOGAN Exam Date: 2022 13:07 PM Exam Name: MG MAMMO DIGITA L UNILAT LT Admitt ing Diagno sis(es ): Histor y: Abnorm al mammog yaritza. COMPAR ERNESTO: 01/08/13 mammog yarizta. TECHNI QUE: Spot compre ssion views and [...] at 2022 14:21: 10 PM Page [address] (Imaging) [address] [place], [address], 04/11/2023 07:57:39 Result Notes Documentation Provider Name and Address Organization Details Recorded Time Mammo, Screening, Digital, Bilateral : [place] [address] Patient Name: ALISA GONZALEZ Sex: F : 1955 Dictated By: Colton Layton Attending Physician: DAYANNA HOGAN Ordering Physician: SAMIRA SALAS Exam Date: 02/13/2023 13:43 PM Exam Name: MG DIGITAL TERI BILAT SCREEN Admitting Diagnosis(es): CLINICAL HISTORY: Screening exam, no breast complaints. No personal history of breast cancer. Prior benign surgical biopsy of the left breast in 1999. Family history of breast cancer in her mother at age 75. COMPARISON: Prior mammograms dated 03/09/2020 and 01/18/2019. TECHNIQUE: Full field bilateral digital mammography was performed in the CC and MLO projections. CAD was utilized. FINDINGS: The breasts are heterogeneously dense, which may obscure small masses (category C). Asymmetry in the left outer breast on the cc view with possible correlated in the left upper breast on the MLO view at anterior depth, appears new or more conspicuous compared to the prior exam. Further evaluation with diagnostic left breast mammogram and possible ultrasound recommended. IMPRESSION: Incomplete examination. Additional imaging needed. RECOMMENDATIONS: Diagnostic left breast mammogram and possible ultrasound recommended. The patient will be notified of the mammography results per hospital protocol. BI-RADS CATEGORY: 0; Incomplete - need additional imaging evaluation. Page 1 Dayanna Manzano RN null, [place] - [facility] 02/18/2023 15:08:13 Problems Name Problem SNOMED Code Status Onset Date Resolution Date Notes Provider Name and Address Organization Details Recorded Time Excessive cerumen in ear canal 411887972 Completed Not Available [facility] 3 06:57:57 Lumbar radiculop athy 115741881 Active Not Available [facility] 4 07:02:59 Folliculi tis 80121321 Completed Not Available [facility] 3 06:57:57 Pain of right ankle joint 40006651870 407661 Active 3 Not Available [facility] 4 07:02:59 Otalgia 07102819 Completed Not Available [facility] 3 06:57:57 Pain in throat 787532496 Active 2018 Not Available [facility] 4 07:02:59 Asthma 324374608 Active 2017 Not Available [facility] 4 07:02:59 Skin tag 445623108 Completed Not Available [facility] 3 06:57:57 Gastroeso phageal reflux disease 956596320 Active Not Available [facility] 4 07:02:59 Edema 313751401 Completed Not Available [facility] 3 06:57:58 Vaginal discharge 376390795 Active 2017 Not Available [facility] 4 07:02:59 Leukocyte s in urine 988762424 Completed Not Available [facility] 3 06:57:58 Pain in left lower limb 182542053 Completed Not Available [facility] 3 06:57:58 Periphera l nerve disease 026581059 Active Not Available [facility] 4 07:02:59 Knee pain Active Not Available [facility] 4 07:02:59 Osteopeni a 249956263 Active 2017 Not Available [facility] 4 07:02:59 Vaginal dryness 22905667 Active Not Available [facility] 4 07:02:59 Restless legs 72181070 Active Not Available [facility] 4 07:02:59 Vitamin D deficienc y 69889622 Active Not Available [facility] 4 07:02:59 Depressiv e disorder 94234750 Active Not Available [facility] 4 07:02:59 Migraine 70566944 Active Not Available [facility] 4 07:02:59 Hypertens nupur disorder 45350266 Active Not Available [facility] 4 07:02:59 Hypothyro idism 37841055 Active Not Available [facility] 4 07:02:59 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 Not Available [facility] 4 07:02:59 Periodic limb movement disorder 581073871 Active 2020 Not Available [facility] 4 07:02:59 History of polyp of colon 383717846 Active Not Available [facility] 4 07:02:59 Acute urinary tract infection 161623085 Completed Not Available [facility] 3 06:57:59 Hypokalem ia 92297359 Active 2017 Not Available [facility] 4 07:02:59 Abnormal cervical Papanicol aou smear 446489352 Completed Not Available [facility] 3 06:57:59 Seasonal allergy 242273679 Active Not Available [facility] 4 07:02:59 Anxiety 61230399 Active Not Available [facility] 4 07:02:59 Pain of hip region 04715976 Active Not Available [facility] 4 07:02:59 Dysuria 73178773 Active 2020 Not Available [facility] 4 07:02:59 Sinus headache 2064939 Completed Not Available [facility] 3 06:58:00 Cough 31683360 Completed Not Available [facility] 3 06:58:00 Hyperlipi demia 47188913 Active Not Available [facility] 4 07:02:59 Essential hypertens ion 47943913 Active 2017 Not Available [facility] 4 07:02:59 Allergic rhinitis 46830662 Active 2018 Not Available [facility] 4 07:02:59 Urinary tract infectiou s disease 27613717 Completed Not Available [facility] 3 06:58:00 Sleep apnea 99734288 Active Not Available [facility] 4 07:02:59 Posterior rhinorrhe a 90048059 Active Not Available [facility] 4 07:02:59 Postmenop ausal state 66379748 Active 2017 Not Available [facility] 4 07:02:59 Greater trochante marian pain syndrome 4880663 Active Not Available [facility] 4 07:02:59 Hypersomn ia 09699244 Active 2020 Not Available [facility] 4 07:03:00 Obstructi ve sleep apnea syndrome 85329910 Active 2020 Not Available [facility] 4 07:03:00 Congestio n of nasal sinus 34195212 Active 2021 Not Available [facility] 4 07:03:00 Chronic pain 67326434 Active Not Available [facility] 4 07:03:00 Fatigue 12559176 Active 2020 Not Available [facility] 4 07:03:00 Hemifacia l spasm 94275271 Active 2022 Not Available [facility] 4 07:02:59 Iron deficienc y anemia 21183412 Active 2022 Not Available [facility] 4 07:03:00 Mammograp hy abnormal 358222280 Active 2022 Not Available [facility] 4 07:02:59 Candidias is of skin 35022625 Active 2022 Not Available [facility] 4 07:02:59 Problem Notes None recorded. Procedures Surgical History Date Name Laterality Status Provider Name and Address Organization Details Recorded Time 02/14/20 23 Most Recent Bone Density completed Dayanna Hogan NP [address], [place], [address], [employer] [facility] 02/16/2023 22:03:01 02/14/20 23 Most Recent Mammogram completed Dayanna Hogan NP [address], [address], [place], [address], [place] 02/16/2023 22:05:06 09/22/19 22 Ankle Surgery completed Not Available [facility] 10/02/2022 06:55:00 03/04/20 21 Date of Last Colonoscopy completed Dayanna Manzano RN [facility] [place] 11/28/2022 14:59:31 section completed Not Available [facility] 10/02/2022 06:55:00 Tonsillectomy completed Not Available [facility] 10/02/2022 06:55:00 Back Surgery completed Not Available [facility] 10/02/2022 06:55:00 procedure on knee completed Not Available [facility] 10/02/2022 06:55:00 Cholecystectomy completed Not Available [facility] 10/02/2022 06:55:00 Colonoscopy completed Not Available [facility] 10/02/2022 06:55:00 Imaging Results None recorded. Procedure Notes None recorded. Medical Equipment None Reported. Allergies Allergen ID Allergen Name Allergen Category Reaction Reaction Severity Criticality Documentation Date Start Date Code Code System Note Provider Name and Address Organization Details Recorded Time 74135 Lyrica medicatio n edema Not available Not available 10/02/2022 85238 1 RxNorm Not Available [facility] 3 07:01:13 07445 adhesive tape environme nt,medica tion swelling Not available Not available 10/02/2022 57867 UNK Not Available [facility] 3 07:01:13 23736 Ativan medicatio n Not available Not available Not available 11/28/202224014 9 RxNorm Dayanna Manzano RN [facility], [place] - [facility] 3 14:49:18 Medications Name Sig Start Date [...] completed Patient wants to go back to [facility]. Not Available Not Available Not Available [...] Not Available Not Available Not Available Afluria 2594-1150 45 mcg (15 mcg x 3)/0.5 mL [...] Available Not Available No t Available Afluria 2696-7233 (PF) 45 mcg (15 mcg x 3)/0.5 mL intramusc ular syringe TO BE ADMINIST ERED BY PHARMACI ST FOR IMMUNIZA TION active Not Available Not Available No t Available Flucelvax Quad 3025-8022 (PF) 60 mcg (15 mcg x 4)/0.5 mL IM syringe TO BE ADMINIST ERED BY PHARMACI ST FOR IMMUNIZA TION 09/01 completed Not Available Not Available Not Available Fluzone High-Dose (PF) 180 mcg/0.5 mL intramusc ular syringe [...] in Arterial blood by Pulse oximetry Systolic And Diastolic Provider Name and Address Organization Details Last Updated DateTime 4 147.32 cm 30.6 kg/m2 12394.9 4 g 97.4 [degF] 67 /min 20 /min 98 % 98 % 160/100 mm[Hg] Dayanna Manzano RN [facility] [place] 4 12:13:02 Date Recorded Body mass index (BMI) Body height Oxygen saturation Oxygen saturation in Arterial blood by Pulse oximetry Heart rate Respiratory rate Body temperature Body weight Systolic And Diastolic Provider Name and Address Organization Details Last Updated DateTime 3 34.8 kg/m2 147.32 cm 97 % 97 % 82 /min 16 /min 97.7 [degF] 46066.7 7 g 117/78 mm[Hg] Not Available [facility] 3 06:56:57 Date Recorded Body mass index (BMI) Body height Oxygen saturation Oxygen saturation in Arterial blood by Pulse oximetry Heart rate Body temperature Body weight Systolic And Diastolic Provider Name and Address Organization Details Last Updated DateTime 3 34.3 kg/m2 147.32 cm 93 % 93 % 60 /min 96.8 [degF] 67390.1 5 g 128/70 mm[Hg] Not Available [facility] 3 06:56:57 Date Recorded Body height Body mass index (BMI) Body weight Body temperature Heart rate Respiratory rate Oxygen saturation Oxygen saturation in Arterial blood by Pulse oximetry Systolic And Diastolic Provider Name and Address Organization Details Last Updated DateTime 3 147.32 cm 30.3 kg/m2 60518.8 9 g 98 [degF] 74 /min 16 /min 97 % 97 % 110/80 mm[Hg] Dayanna Manzano RN [facility] 3 14:57:01 Date Recorded Body height Body mass index (BMI) Body weight Body temperature Heart rate Oxygen saturation Oxygen saturation in Arterial blood by Pulse oximetry Systolic And Diastolic Provider Name and Address Organization Details Last Updated DateTime 3 147.32 cm 29.3 kg/m2 98215.9 3 g 95.9 [degF] 79 /min 96 % 96 % 128/80 mm[Hg] Dayanna Manzano RN [facility] 3 14:07:08 Social History Question Answer Notes LastModified by Organizat ion Details LastModified Time Tobacco Smoking Status Never Smoker Not Available [facility] 10/02/2022 06:54:52 Do You Have An Advance Directive? No Packet [id number] Information not available 10/02/2022 Are You Blind Or Do You Have Difficulty Seeing? No MIGRATION.01510 90585 Information not available 10/02/2022 Is Blood Transfusion Acceptable In An Emergency? Yes Information not available 11/28/2022 What Is Your Level Of Caffeine Consumption? Heavy MIGRATION.81962 31230 Information not available 10/02/2022 How Much Tobacco Do You Chew? None MIGRATION.85900 52738 Information not available 10/02/2022 What Is Your Code Status? Full Code [email or web address] Information not available 11/28/2022 In The 14 Days Before Symptom Onset, Have You Had Close Contact With A Laboratory-confir med COVID-19 While That Case Was Ill? No MIGRATION.52522 33758 Information not available 10/02/2022 In The 14 Days Before Symptom Onset, Have You Had Close Contact With A Person Who Is Under Investigation For COVID-19 While That Person Was Ill? No MIGRATION.66502 08002 Information not available 10/02/2022 Are You Deaf Or Do You Have Serious Difficulty Hearing? No MIGRATION.63255 34336 Information not available 10/02/2022 What Type Of Diet Are You Following? REGULAR MIGRATION.83882 11393 Information not available 10/02/2022 Which Illicit Or Recreational Drugs Have You Used? None MIGRATION.29907 95215 Information not available 10/02/2022 Have There Been Any Changes To Your Family Or Social Situation? No MIGRATION.95914 14989 Information not available 10/02/2022 Do You Use Insect Repellent Routinely? No MIGRATION.72103 52293 Information not available 10/02/2022 Where Do You Live? [facility] MIGRATION.81511 62653 Information not available 10/02/2022 Do You Have A Medical Power Of Chief Compressor Station Engineer? No MIGRATION.44831 67506 Information not available 10/02/2022 What Was The Date Of Your Most Recent Tobacco Screening? 01/23/2021 MIGRATION.08941 61908 Information not available 10/02/2022 Do You Have Any Pets? Yes MIGRATION.84799 99845 Information not available 10/02/2022 What Is Your Relationship Status? MIGRATION.90114 77052 Information not available 10/02/2022 Do You Use Your Seat Belt Or Car Seat Routinely? Yes MIGRATION.70944 21924 Information not available 10/02/2022 Do You Have Smoke And Carbon Monoxide Detectors In Your Home? Yes MIGRATION.72904 42078 Information not available 10/02/2022 Are There Any Smokers In Your House? No Information not available 11/28/2022 How Much Tobacco Do You Smoke? No MIGRATION.67170 24803 Information not available 10/02/2022 Do You Participate In Social [employer]? Yes MIGRATION.56587 70586 Information not available 10/02/2022 Do You Use Sunscreen Routinely? No MIGRATION.33961 44146 Information not available 10/02/2022 Have You Recently Traveled Abroad? No MIGRATION.65278 47486 Information not available 10/02/2022 Do You Have Difficulty Walking Or Climbing Stairs? Yes MIGRATION.62259 14283 Information not available 10/02/2022 Sex: Female Functional Status Question Answer Note LastModified by Se[employer] Details LastModified Time What is your level of alcohol consumption? None MIGRATION.664596 9412 Information not available 10/02/2022 Do you or have you ever used smokeless tobacco? Never used smokeless tobacco MIGRATION.588382 5249 Information not available 10/02/2022 Do you have transportation difficulties? No MIGRATION.391722 2229 Information not available 10/02/2022 Are you able to walk? NODEP Information not available 11/28/2022 Do you have difficulty doing errands alone? Yes Information not available 11/28/2022 Are you able to care for yourself? Yes MIGRATION.608869 7085 Information not available 10/02/2022 What is your occupation? Retired MIGRATION.037143 5126 Information not available 10/02/2022 Do you have difficulty dressing or bathing? No MIGRATION.981660 3864 Information not available 10/02/2022 Do you or have you ever used e-cigarettes or vape? Never used electronic cigarettes MIGRATION.140573 9661 Information not available 10/02/2022 What is your exercise level? None MIGRATION.419534 3603 Information not available 10/02/2022 Mental Status Question Answer Note LastModified by Se[employer] Details LastModified Time Do you feel stressed (tense, restless, nervous, or anxious, or unable to sleep at night)? [id number] MIGRATION.[id number] 26 Information not available 10/02/2022 Do you have difficulty concentrating, remembering or making decisions? Yes MIGRATION.24701133 26 Information not available 10/02/2022 Family History Relationship Description Onset Age of this Age Resolved Age Notes LastModified by Organization Details LastModified Time Mother Family history of breast cancer gene BRCA mutation MIGRATION.421 [id number] Not available 10/02/2022 06:55:01 Paternal Grandfather Malignant tumor of colon MIGRATION.892 [id number] Not available 10/02/2022 06:55:01 Paternal Grandmother Malignant tumor of colon MIGRATION.309 [id number] Not available 10/02/2022 06:55:01 Medical History Condition [...] Recorded Time Tdap 3 completed Not Available [facility] 08/27/2023 07:03:00 RSV, recombinant, protein subunit RSVpreF, adjuvant reconstituted, 0.5 mL, PF 3 completed Not Available [facility] 08/27/2023 07:03:00 SARS-COV-2 (COVID-19) vaccine, UNSPECIFIED 1 completed Not Available [facility] 08/27/2023 07:03:00 Influenza, high-dose, quadrivalent, PF 2 completed Not Available [facility] 08/27/2023 07:03:00 Influenza, high-dose, quadrivalent, PF 1 completed Not Available [facility] 08/27/2023 07:03:00 COVID-19 Non-US Vaccine, Product Unknown 1 completed Not Available [facility] 08/27/2023 07:03:00 SARS-COV-2 (COVID-19) vaccine, UNSPECIFIED 1 completed Not Available [facility] 08/27/2023 07:03:00 pneumococcal polysaccharide PPV23 0 completed Not Available [facility] 08/27/2023 07:03:00 Influenza, high-dose, trivalent, PF 8 completed Not Available [facility] 08/27/2023 07:03:00 Pneumococcal conjugate PCV 13 5 completed Not Available [facility] 08/27/2023 07:03:00 Influenza, split virus, trivalent, preservative 3 completed Not Available [facility] 08/27/2023 07:03:00 Tdap 2 completed Not Available [facility] 08/27/2023 07:03:00 Influenza, split virus, quadrivalent, PF 6 completed Not Available [facility] 08/27/2023 07:03:00 Pneumococcal conjugate PCV 13 5 completed Not Available [facility] 08/27/2023 07:03:00 Influenza, split virus, trivalent, preservative 4 completed Not Available [facility] 08/27/2023 07:03:00 Influenza, split virus, quadrivalent, preservative 5 completed Not Available [facility] 08/27/2023 07:03:00 zoster live 4 completed Not Available [facility] 08/27/2023 07:03:00 Past Encounters Encounter ID Performer Location Encounter Start Date Encounter Closed Date Diagnosis/Indication Diagnosis SNOMED-CT Code Diagnosis ICD10 Code Diagnosis Note [id number] Joe Cárdenas MD [facility]_[address] [address] 11/09/2020 00:00:00 11/10/2020 18:43:13 [id number] _ATHN_MIGR ATION_1 _ATHENA_M IGRATION_ DEFAULT_1 _1 , 01/03/2021 00:00:00 01/03/2021 15:41:39 [id number] [facility]_Histor ic_Gateway [facility] Pulmonolo gy Kat Beard [address] [place] [address] 01/23/2021 00:00:00 01/23/2021 19:30:45 [id number] Joe Cárdenas MD [facility] [address] [place] [address] 03/05/2021 00:00:00 03/05/2021 11:47:09 [id number] Joe Cárdenas MD [facility] [address] [place] [address] 05/11/2021 00:00:00 05/11/2021 17:50:50 [id number] Joe Cárdenas MD [facility] [address] [place] [address] 06/19/2021 00:00:00 06/19/2021 19:33:00 [id number] [facility]_Histor ic_Gateway [facility] [place] [facility] [place] [address] [place] [address] 06/21/2021 00:00:00 06/21/2021 16:57:17 [id number] [facility]_Histor ic_Gateway [facility] [facility] [place] [address] [place] [address] 07/23/2021 00:00:00 07/23/2021 13:47:23 [id number] Joe Cárdenas MD [facility] [address] [place] [address] 08/15/2021 00:00:00 08/15/2021 16:27:16 [id number] Joe Cárdenas MD [facility] [address] [place] [address] 09/07/2021 00:00:00 09/07/2021 12:57:10 [id number] Joe Cárdenas MD [facility] [address] [place] [address] 10/10/2021 00:00:00 10/10/2021 12:23:16 [id number] [facility]_Histor ic_Gateway [facility] [place] [address] [place] [address] 11/07/2021 00:00:00 11/07/2021 16:01:42 [id number] Joe Cárdenas MD [facility] [place] [address] [place] [address] 11/14/2021 00:00:00 11/14/2021 15:15:31 [id number] Joe Cárdenas MD [facility] [place] [address] [place] [address] 01/17/2022 00:00:00 01/18/2022 17:48:51 [id number] [facility] [place] [address] [place] [address] 02/19/2022 00:00:00 02/19/2022 16:22:11 [id number] JANES Jean [facility] Pulmonolo gy [place] [address] [place] [address] 04/02/2022 00:00:00 04/02/2022 15:56:46 [id number] Joe Cárdenas MD [facility] [place] [address] [place] [address] 06/06/2022 00:00:00 06/06/2022 17:39:31 [id number] Joe Cárdenas MD [facility] [place] [address] [place] [address] 08/16/2022 00:00:00 08/16/2022 12:19:29 [id number] Joe Cárdenas MD [address] [address] 09/20/2022 00:00:00 09/20/2022 11:04:09 [id number] [facility] [place] [address] [place] [address] 10/01/2022 00:00:00 10/01/2022 15:54:32 [id number] Dayanna Hogan NP [address] [address] 11/28/2022 14:39:09 11/28/2022 15:53:35 Hemifacial spasm 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 Foreman and will be seeing Dr. Tyler at [facility] for movement disorder clinic.No change in current meds. [id number] Dayanna Hogan NP [address] [address] 01/17/2023 13:56:27 01/17/2023 16:20:21 Asthma [id number] J45.909 Albuterol HFA Hypothyroidism 37084868 E03.9 Levothyrox ine 150 mcg po daily. Hyperlipidemia 73246994 E78.5 low fat diet. Gastroesop hageal reflux disease 012821292 K21.9 stable Restless legs 54015245 G 25.81 ropinirole 0.25 mg po nightly. Depressive disorder 3548 9007 F32.9 Bupropion HCL SR 150 mg po bid.duloxe naren 60 mg po daily. Iron defic iency anemia 04216008 D50.9 ferrous sulfate 325 mg po daily. Allergic rhinitis 480556 04 J30.9 montelukas t 10 mgLoratadi ne 10 mg. Screening for malignant neoplasm of breast 749291265 Z12.39 mammogram ordered 01/17/23 Postmenopausal state 764 48550 Z78.0 Dexa ordered 01/17/23 [id number] Dayanna Hogan NP [address] [address] 08/15/2023 11:47:05 08/15/2023 16:16:52 Asthma 794742775 J45.909 Albuterol HFA Hypothyroidism 72160991 E03.9 Levothyrox ine 125 mcg po daily to levothyrox ine 100 mcg po daily.TSh not existent. Reduced levothyrox ine. new dose sent. Labs in 8 weeks.Chol esterol controlled . 07/14/23 new orders due before refill. Currently on levothyrox ine 100 mcg po daily.07/04 11/24 TSh low. Reduce to levothyrox ine 88 mcg po daily. Hyperlipidemia 79666914 E78.5 low fat diet. Essential hypertension 37981447 I10 monitor prn Gastroesop hageal reflux disease 962768986 K21.9 stable Restless legs 02385554 G 25.81 ropinirole 0.25 mg po nightly. Depressive disorder 3548 9007 F32.9 Bupropion HCL SR 150 mg po bid. Try for bupropion HCL XL 300 mg po daily for cost savings.du loxetine 60 mg po daily. Iron defic iency anemia 59829680 D50.9 ferrous sulfate 325 mg po daily. Allergic rhinitis 844965 04 J30.9 montelukas t 10 mgLoratadi ne 10 mg. 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 Hypokalemia 67367984 E87 .6 Health Concerns Section Related Observation LastModified by Organization Detai ls LastModified Time None Recorded Concern Status LastModified by Organization Details LastModified Time None Recorded Advance Directives Directive N: Packet Payers Insurance Date Sequence Insurance Name Policy Number Policy Luna Covered Member ID Luna Member ID Guarantor Name 08/12/2023 1 [place] Alisa Gonzalez [id number] Alisa Gonzalez 08/18/2023 2 AARP (MEDICARE SUPPLEMENT) Alisa Gonzalez [id number] Alisa Gonzalez Notes Date Note Type Note [...] brought to office today and scanned into [employer]. Will be seeing sleep specialist Dr. Kumari December 23, 2022. Was seeing jennie chatterjee marine fisheries technician before but Dr. Foreman suggested a MD may give more options.Pt has RLS.Will be seeing movement specialist at [facility] Dr Tyler January 2023. Dayanna Hogan NP [address], [address], [place], [address], [place] 11/28/2022 15:52:38 01/17/2023 text/html Here for check [...] out. On walker. Dayanna Hogan NP [address], [address], [place], [address], [place] 01/17/2023 16:06:43 08/15/2023 text/html Here for check u p. Asthma- stableThyroid- no complaintslipid- trying to eat well.htn- Home bp doing well.Gerd- stableRLS- still feeling daria all the time as well as whole body.Depression- Stable on cymbalta and bupropion. Clonazepam added (to help claustrophobia with CPAP), Oxcarbazepine (for trigeminal neuralgia), and upped dose of carbidopa/levodopa. Per neurology.Was seeing Dr. Foreman. Dayanna Hogan NP [address], [address], [place], [address], [place] 08/15/2023 17:01:26 OBGyn Episode No OBEpisode recorded.
--- OUTSIDE RECORDS SUMMARY | 2025-02-10 14:24 | XMS_ITS | Clinical Summary ---
Author Organization [facility] Address [address] [place] [address] Care Team Providers Care Retail Event Assistant Name Role Phone Dayanna Aj Adam LUCIA-PELT GRADER Primary Care Provider Source Comments [facility],non-owned Affiliates and Associated Physician Practices is amultiple site organization consisting of ambulatory clinics and hospital sitesin [place], [place], [place] and [place]. This disclosure is being madepursuant to the Care Everywhere program and may not contain all information available regarding this patient. Last updated 18.[facility] [employer] Allergies Active Allergy Reactions Criticality Noted Date [...] mouth every 6 hours as needed Active Azalea-3 Fatty Acids (fish oil) 1000 MG capsule Acti ve SUPER B COMPLEX/C PO Take 1 tablet by mouth 2 times daily Active Multiple Vitamins-Mineral s (HAIR SKIN NAILS PO) Active magnesium 250 MG tablet Take 1 (one) tablet by mouth 2 times daily Active vitamin D3 (Cholecalciferol ) 25 MCG (1000 UNITS) tablet Take 2 (two) tablets by mouth once daily Active Probiotic Product (probiotic daily) capsule Take by mouth every 7 days 50 billion Active DULoxetine (Cymbalta) 60 MG capsule Take 1 (one) capsule by mouth once daily 11/18/19 22 Active montelukast (Singulair) 10 MG tablet Take 1 (one) tablet by mouth once daily 11/01/19 22 Active HYDROcodone-acet aminophen ([place]) 7.5-325 MG tablet Take 1 (one) tablet by mouth every 6 hours as needed for Pain Active Klor-Con M20 20 MEQ tablet Take 1 (one) tablet by mouth once daily 02/06/20 23 Active nystatin (Mycostatin) 748182 UNIT/GM cream 04/22/20 23 Active amoxicillin (Amoxil) 500 MG capsule as needed 08/06/19 24 Active benztropine (Cogentin) 1 MG tablet Take 1 (one) tablet by mouth once daily Active vitamin D, ergocalciferol, (Drisdol) 1.25 MG (84777 UT) capsule 10/09/19 24 Active lisinopril (Prinivil; Zestril) 10 MG tablet Take 1 (one) tablet by mouth once daily 03/18/20 24 Active acetaminophen (Tylenol) 325 MG tablet Take 2 (two) tablets by mouth every 6 hours as needed for Fever or Pain Maximum allowable Acetaminophen amount = 4 Grams (4000 mg) / 24 hours. 05/10/20 24 Active ibuprofen (Motrin) 600 MG tablet Take 1 (one) tablet by mouth every 6 hours as needed for Pain 05/10/20 24 Active oxyCODONE, immediate release, (Roxicodone) 5 MG tabletIndication s:S/P insertion of hypoglossal nerve stimulator Take 1 (one) tablet by mouth every 6 hours as needed for Pain 12 tablet 05/10/20 24 Active Additional Information Patient not taking.Reported on 11/19/2024 docusate sodium (Colace) 100 MG capsule Take 1 (one) capsule by mouth once daily 20 capsule 05/10/20 24 Active carbidopa-levodo pa (Sinemet) 25-100 MG tabletIndication s:RLS (restless legs syndrome) Take 2 (two) tablets by mouth 3 times daily 540 tablet 3 05/24/20 24 Active losartan (Cozaar) 25 MG tabletIndication s:Essential hypertension Take 1 (one) tablet by mouth once daily 90 tablet 3 06/16/20 24 Active levothyroxine (Synthroid) 100 MCG tablet Take 1 (one) tablet by mouth once daily 05/27/20 24 Active buPROPion XL 24hr (Wellbutrin-XL) 300 MG tablet Take 1 (one) tablet by mouth every morning 07/07/20 24 Active fluticasone propionate (Flonase) 50 MCG/ACT nasal sprayIndications :Allergic rhinitis, unspecified seasonality, unspecified trigger [place]ouster 2 (two) sprays into each nostril once daily 48 g 4 07/22/20 24 Active Additional Information Patient not taking.Reported on 11/19/2024 fexofenadine (Briana) 180 MG tabletIndication s:Allergic rhinitis, unspecified seasonality, unspecified trigger Take 1 (one) tablet by mouth once daily 90 tablet 3 07/22/20 24 Active gabapentin (Neurontin) 100 MG capsuleIndicatio ns:RLS (restless legs syndrome) Take 3 (three) capsules by mouth at bedtime 270 capsule 3 07/22/20 24 Active ondansetron (Zofran) 4 MG tablet Take 1 (one) tablet by mouth every 6 hours as needed for Nausea/Vomiting Active carbidopa-levodo pa CR (Sinemet CR) 50-200 MG tabletIndication s:RLS (restless legs syndrome) Take 1 (one) tablet by mouth 2 times daily 180 tablet 3 11/20/19 25 Active OXcarbazepine (Trileptal) 150 MG tabletIndication s:Trigeminal neuralgia Take 1 (one) tablet by mouth 2 times daily 180 tablet 4 11/20/19 25 Active clonazePAM (KlonoPIN) 0.5 MG tabletIndication s:RBD (REM behavioral disorder) TAKE 1 TABLET BY MOUTH EVERYDAY AT BEDTIME 30 tablet 5 01/01/20 25 Active clonazePAM (KlonoPIN) 0.5 MG tablet Take 1 (one) tablet by mouth 2 times daily as needed for Anxiety 180 tablet 1 01/02/20 25 Active Active Problems Problem Noted Date Diagnosed [...] Encounters Date Type Department Care Team Description 02/09/2025 Telephone [facility] Orthopedics [facility] [place] [address] Duncan Sharp DO Surgery Scheduling 01/01/2025 Telephone [facility] [address] [place] [phone] Saima Villa MD Medication Problem 12/31/2024 Refill [facility] [address] [place] [phone] Yadira Mcnally APRN-CNP Refill Request 11/19/2024 10:30 AM CDT Office Visit [facility] [address] [place] [phone] Katie Augustin APRN-CNP Idiopathic Parkinson's disease (HCC) (Primary Dx); RLS (restless legs syndrome); Trigeminal neuralgia 11/19/2024 Travel from Last 3 Months Immunizations Immunization Administration Dates Next Due INFLUENZA VACCINE, TRIV. (AF LURIA, FLUZONE TRIVALENT; 6MO+) (IIV3) 07/04/2014,05/10/2013 COVID PFIZER 12+YR 30MCG/0.3mL 05/02/2023 COVID PFIZER BIVALENT 12Y+ 30mcg/0.3ML 04/16/2022 Covid Pfizer primary monoval ent 12+ yr 0.3mL Purple cap 05/03/2021,10/10/2020,09/19/2020 FLU VACCINE TRI IIV3 SPLIT I M (FLUVIRIN) 05/26/2013,05/15/2013 INFLUENZA L0K4-55, HISTORIC VACCINE 05/04,05/20/2022,05/10/2021,2020 INFLUENZA VACCINE, ADJUVANTE D, [...] Office Visit [facility] [address] [place] [address], Formerly [facility] [place] [phone] Katie Augustin, CUBE CUTTER-PELT GRADER [address] [place] [address] Health Maintenance Due Date Last Done Comments [...] history exists DEPRESSION SCREENING 08/04/2024 INFLUENZA VACCINE (#1) 2025 3, 05/20/2022, 05/20/2022, Additional history exists SCREENING FOR DIABETES 03/17/2027 4, 10/20/2022, 10/14/2022, [...] Problems Recent Progress Patient-Stated? Author Mobility General Bryanna Ash, RN Note: Expected end date: 3 months The goal is to maintain or improve your mobility at the optimum level for you. Interventions: Will be NWB RLE, participate with PT per facility. Medical Devices Implanted Type Area Product Development Actuary Device Identifier Shelf Expiration Date Model / Serial / Lot Mri Unsafe Moreira Neuro Stimulator Neuro Stimulator [id number] / / Description:per manual MRI u nsafe 3.5 Mm Lateral Distal Fibula Plate Implanted:Qt y: 1 on 09/22/2021 by Gonzales Rey, DO at [facility] Plate Right: Ankle [employer] [id number] / / Screw 3.5mm 14mm Slf-Tap Cortx Evos Strl Implanted:Qt y: 4 on 09/22/2021 by Gonzales Rey, DO at [facility] Screw Right: Ankle [employer] [id number] / / Screw 3.5mm 48mm Slf-Tap Cortx Evos Strl Implanted:Qt y: 1 on 09/22/2021 by Gonzales Rey, DO at [facility] Screw Right: Ankle [employer] [id number] / / Screw 3.5mm 55mm Slf-Tap Cortx Evos Strl Implanted:Qt y: 1 on 09/22/2021 by Gonzales Rey, DO at [facility] Screw Right: Ankle [employer] [id number] / / Fully Threaded 4.7 Mm Osteopenia Screw Implanted:Qt y: 1 on 09/22/2021 by Gonzales Rey, DO at [facility] Screw Right: Ankle [employer] [id number] / / 3.5 Mm Locking Screw Implanted:Qt y: 1 on 09/22/2021 by Gonzales Rey, DO at [facility] Screw Right: Ankle [employer] [id number] / / Kit Bngf 3cc Aug Inj Implanted:Qt y: 1 on 10/14/2022 by Amy Mondragon MD at [facility] Right: Ankle [employer] 05/03/2023 [id number] / / [id number] Kit Bngf 3cc Aug Inj Implanted:Qt y: 1 on 10/14/2022 by Amy Mondragon MD at [facility] Right: Ankle Deja [employer] Inc 05/03/2023 [id number] / / [id number] Graft Bone Canc 4-9.5mm 15cc Frzdr Chp Implanted:Qt y: 1 on 10/14/2022 by mAy Mondragon MD at [facility] Right: Ankle [employer] 08/19/2026 [id number] / / [id number] Right Small Nail Implanted:Qt y: 1 on 10/14/2022 by Amy Mondragon MD at [facility] Right: Ankle [employer] 05/20/2030 [id number] / / [id number] Screw 5mm 25mm Valor Ti Hindfoot Fsn Sys Implanted:Qt y: 1 on 10/14/2022 by Amy Mondragon MD at [facility] Right: Ankle [employer] Inc 07/16/2030 [id number] / / [id number] Screw 5mm 30mm Valor Ti Hindfoot Fsn Sys Implanted:Qt y: 1 on 10/14/2022 by Amy Mondragon MD at [facility] Right: Ankle Deja [employer] 08/23/2030 [id number] / / [id number] 5x40mm Screw Implanted:Qt y: 1 on 10/14/2022 by Amy Mondragon MD at [facility] Right: Ankle Deja [employer] Inc [id number] 07/16/2030 [id number] / / [id number] 5x70mm Screw Implanted:Qt y: 1 on 10/14/2022 by Amy Mondragon MD at [facility] Right: Ankle [employer] [id number] 01/16/2030 [id number] / / [id number] Screw 3.5mm 18mm T10 Ft Strdr Nonster Implanted:Qt y: 1 on 10/14/2022 by Amy Mondragon MD at [facility] Right: Ankle [employer] [id number] / / Screw 3.5mm 50mm T10 Ft Strdr Nonster Implanted:Qt y: 1 on 10/14/2022 by Amy Mondragon MD at [facility] Right: Ankle [employer] [id number] / / Graft Bone Ignite Dbm 20ml Pwr Mx Inj - [id number] Implanted:Qt y: 1 on 10/14/2022 by Amy Mondragon MD at [facility] Right: Ankle [employer] 03/18/2026 [id number] / [id number] / Lead Nrstm Inspr 3 Eltrd Cuf Tnl Pelon - [id number] Implanted:Qt y: 1 on 05/10/2024 by Sriram Simon MD at [facility] Right: Neck [employer] Inc [id number] 06/29/2026 [id number] / [id number] / Lead Ns Resp - [id number] Implanted:Qt y: 1 on 05/10/2024 by Sriram Simon MD at [facility] Right: Chest [employer] [id number] 09/15/2026 4340 / [id number] / Gntr Nrstm - [id number] Implanted:Qt y: 1 on 05/10/2024 by Sriram Simon MD at [facility] Right: Chest [employer] Inc [id number] 07/14/2026 3028 / [id number] / Explanted Type Area Product Development Actuary Device Identifier Shelf Expiration Date Model / Serial / Lot Fully Threaded 4.7 Mm Osteopenia Screw Explanted:Qty: 1 on 09/22/2021 by Gonzales Rey DO at [facility] Screw Right: Ankle [employer] [id number] / / Wire K 1.6mm 150mm Troc Pnt Ss Fx Strl Explanted:Qty: 2 on 09/22/2021 by Gonzales Rey DO at [facility] Wire Right: Ankle [employer] [id number] / / Procedures Procedure Name Priority Date/Time Associated Diagnosis Comments BASIC METABOLIC PANEL (CALCIUM TOTAL) STAT 03/17/2024 10:43 AM CDT COSTA (obstructive sleep apnea) from Last 3 Months or Most Recently Relevant to Health Maintenance Results * (ABNORMAL) BASIC METABOLIC PANEL (CALCIUM TOTAL) (03/17/2024 10:43 AM CDT) BUN 21 7 - 26 mg/dL 03/17/2024 11:21 AM [facility] Creatinine 0.56 0.56 - 0.96 mg/dL [...] 38(H) 7 - 23 03/17/2024 11:21 AM [facility] Osmolality Calculated 289 275 - 295 mOsm/kg 03/17/2024 11:21 AM [facility] eGFR by CKD-EPI >90 >=90 mL/min/1.7 3 m2 03/17/2024 11:21 AM [facility] Blood BLOOD SPECIMEN / Unknown Line Draw / Unknown 03/17/2024 10:43 AM CDT 03/17/2024 10:49 AM CDT Sriram Simon MD LAB - CHEMISTRY ORDERABLE S Final Result [facility] [address] [place] [address], [place] [phone] from Last 3 Months or Most Recently Relevant to Health Maintenance Insurance MEDICARE [facility] MEDICARE AARP Advance Directives * Full Code (Latest Code Status on File) Date Activated Date Inactivated Comments 10/14/2022 12:56 PM 10/15/2022 3:28 PM * Full Code Date Activated Date Inactivated Comments 09/21/2021 11:17 AM 09/25/2021 3:39 PM Care Teams Retail Event Assistant Relationship Specialty Start Date End Date Dayanna Aj, CUBE CUTTER-PELT GRADER [address] [place] [phone] PCP - General Nurse Practitioner Family 10/08/23
--- OUTSIDE RECORDS SUMMARY | 2025-02-10 14:24 | XMS_ITS | Patient Health Record ---
Author Organization [facility] Address [address] [place], [place] [id number] Care Team Providers Care Tow Truck Operator Name Role Phone JM FAIRCHILD Unavailable [phone] Dayanna Aj Unavailable Unavailable Allergies Allergen (clinical drug ingredient) Drug/Non Drug Allergy documented on EMR Reaction Allergy Type Onset Date Status Adhesive Unknown Allergy Active Reason For Referral No Information Medications Medication SIG (Take, Route, Frequency, Duration) Notes Start Date End Date Status Gabapentin 300 MG Oral; Duration: 90 Days Active Klor-Con M20 20 MEQ Oral; Duration: 90 Days Active Levothyroxine Sodium 100 MCG Oral; Duration: 90 Days Active Losartan Potassium 25 MG Oral; Duration: 90 Days Active Montelukast Sodium 10 MG Oral; Duration: 90 Days Active Omeprazole 40 MG Oral; Duration: 90 Days Active buPROPion HCl ER (XL) 300 MG TAKE 1 TABL ET BY MOUTH EVERY MORNING Oral; Duration: 90 Days Active OXcarbazepine 150 MG TAKE 1 (ONE) TABLET BY MOUTH 2 TIMES DAILY Oral; Duration: 90 Days Active Carbidopa-Levodopa ER 50-200 MG TAKE 1 TABLET BY MOUTH EVERYDAY AT BEDTIME Oral; Duration: 90 Days Active clonazePAM 0.5 MG Oral; Duration: 90 Days Active DULoxetine HCl 60 MG Oral; Duration: 90 Days Active Ferrous Sulfate 325 (65 Fe) MG TAKE 1 TABLET BY MOUTH EVERY OTHER DAY Oral; Duration: 90 Days Active Vital Signs Height-cm 147.32 cm 07/15/2024 Weight-kg 70.31 kg 07/15/2024 Height 58 in 07/15/2024 Weight 155 lbs 07/15/2024 BMI 32.39 kg/m2 07/15/2024 Encounters Encounter Location Date Provider Diagnosis [facility] [address] [place], [place] [phone] 07/15/2024 JM FAIRCHILD Sprain of anterior talofibular [...] Date Coverage End Date Medicare Part B [place] [address] [place] [address] [id number] Gayla Heather Self - patient is the insured 8 [facility] Medicare Supplement [address] [place], [place] [id number] Gayla Heather Self - patient is the [...]
--- OUTSIDE RECORDS SUMMARY | 2025-02-10 14:24 | XMS_ITS | Clinical Summary ---
Author Organization [facility] Address [address] [place] [address] Care Team Providers Care Security Tech Name Role Phone Juana Nguyen MD Primary Care Provider + [phone] Allergies Active Allergy Reactions Criticality Noted Date [...] Oral q hs, Route to Pharmacy Electronically, [facility]/pharmacy #[id number], 150, 09/27/21 13:13:00 FRONT ATTENDANT, Height/Length Dosing, cm, 97.8, 09/25/21 18:28:00 FRONT ATTENDANT, Weight Dosing, kg 2 Active omeprazole 40 [...] virus vaccine, PF, 0.5 ML injection Afluria 7278-3214(PF) 45 mcg (15 mcg x 3)/0.5 mL [...] mg tablet Active vitamin D2, ergocalciferol , 28172 UNITS capsule Take 50,000 Units by mouth [...] 8:53 AM CDT Height 147.3 cm (4' 10) 01/10/2022 8:53 AM CDT Body Mass Index 42.22 01/10/2022 8:53 AM CDT Plan of Treatment Health Maintenance Due Date Last Done Comments Colorectal Cancer Screening Colonoscopy (10 Years) 1953 Hepatitis C 1971 Mammogram Screening 1993 Zoster Vaccines (2 of 3) 01/10/2014 11/15/2013 Annual Medicare Wellness Visit 2018 Dexa Scan (General) 2018 DTaP, Tdap and Td Vaccines ( 2 - Td or Tdap) 10/01/2021 10/02/2011 COVID-19 Vaccine (4 - 2023-2 5 season) 2024 05/03/2021, 10/10/2020, 09/19/2020 RSV Immunization or 60+ Years (1 - 1-dose 75+ series) 2028 Pneumococcal Vaccine: 50+ Years Completed 07/21/2020, 11/11/2014, 11/04/2014 Meningococcal B Vaccine Aged Out No l onger eligible based on patient's age to complete this topic Meningococcal Vaccine Aged Out No kyree gary eligible based on patient's age to complete this topic RSV Immunizations Under 20 Months Aged Out No longer eligible b ased on patient's age to complete this topic Insurance MEDICARE [facility] Care Teams Security Tech Relationship Specialty Start Date End Date Juana Nguyen MD [address], [place], [place] [phone] PCP - General 06/26/14
--- OUTSIDE RECORDS SUMMARY | 2025-02-10 14:24 | XMS_ITS | Encounter Summary ---
Author Organization [facility] Address [address] [place] [address] Care Team Providers Care Retail Account Representative Name Role Phone Dayanna Aj Adam DE [employer] PORTER Primary Care Provider Reason for Visit * Reason Onset Date Comments Medication Problem 01/01/2025 Encounter Details Date Type Department Care Team (Late st Contact Info) Description 01/01/2025 Telephone [facility] - Neurology [address] [facility], [place] [address] Saima Villa MD [address] [place], [place] [id number] Medication Problem Social History Tobacco Use Types [...] Kevin Stokes RN * Does person have serious [...] (Demetria). Saima Villa M.D. Neurology Resident PGY2 [facility] documented in this encounter Plan of Treatment Upcoming Encounters Date Type Department Care Team (Late st Contact Info) Description 05/23/2025 2:00 PM CDT Office Visit [facility] - Neurology [address] [facility], [place] [phone] Katie Augustin APRN-CNP [address] [place] [phone] documented as of this encounter Goals Goal [...] disorder documented in this encounter Care Teams Retail Account Representative Relationship Specialty Start Date End Date Dayanna Aj APRN-ARIEL [address] [place] [address] PCP - General Nurse Practitioner Family 10/08/23 documented as of this encounter
--- OUTSIDE RECORDS SUMMARY | 2025-02-10 14:24 | XMS_ITS | Encounter Summary ---
Author Organization [facility] Address [address] [facility] [place] [address] Care Team Providers Care Paralegal Legal Secretary Name Role Phone Dayanna Aj Adam CARDROOM HAND-REGULATED PROGRAM MANAGER Primary Care Provider Reason for Visit * Reason Onset Date Comments Surgery Scheduling 02/09/2025 Encounter Details Date Type Department Care Team (Late st Contact Info) Description 02/09/2025 Telephone [facility] Orthopedics [address] [place] [address] Duncan Sharp, [address] [phone] Surgery Scheduling Social History Tobacco Use Types Packs/Day Years [...] encounter Miscellaneous Notes * Telephone Encounter - Delroy Ravi - 02/09/2025 2:36 PM CDT Who is calling? Self What is the reason for call? Pt wants to schedule surgery on her right ankle. Expected Response from the Clinic? ( ex. Call back, etc..) Please call Pt back. Did you notify caller it would take 24-48 hours for the office to get back to them? YES documented in this encounter Plan of Treatment Upcoming Encounters Date Type Department Care Team (Late st Contact Info) Description 05/23/2025 2:00 PM CDT Office Visit [facility] - Neurology [facility] [facility] [place] [address] Katie Augustin APRN-REGULATED PROGRAM MANAGER [address] [place] [address] [place] [address] documented as of this encounter Goals Goal Patient Goal Type Associated Problems Recent Progress Patient-Stated? Author Mobility General No Bryanna Henning, RN Note: Expected end date: 3 months The goal is to maintain or improve your mobility at the optimum level for you. Interventions: Will be NWB RLE, participate with PT per facility. documented as of this encounter Visit Diagnoses Not on filedocumented in this encounter Care Teams Paralegal Legal Secretary Relationship Specialty Start Date End Date Dayanna Aj, CARDROOM HAND-REGULATED PROGRAM MANAGER [address] [place] [phone] PCP - General Nurse Practitioner Family 10/08/23 documented as of this encounter
--- OUTSIDE RECORDS SUMMARY | 2025-02-10 14:24 | XMS_ITS | Data Portability ---
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 Plan of Treatment Reminders Order Date Submit Date Provider Last Modified By Organization Details Last Modified Time Details Appointments None recorded. Lab urinalysis, dipstick 2024 025 [address], [address], [place], [address], 17:49:05 culture, urine 2024 025 [facility] (Lab), [address], [place], [address], 22:24:58 Referral None recorded. Procedures None recorded. Surgeries None recorded. Imaging US, pelvis 2024 [email or web address], [address], [place], [address], 09:56:35 US, transvagina l 2024 [email or web address], [address], [place], [address], 09:56:35 US, transvagina l 2024 [email or web address], [address], [place], [address], 09:56:35 US, pelvis, complete 2024 025 ANAHI Not available 04:12:26 Medication Orders None recorded. Patient TargetsNo targets recorded. Patient InstructionsNo instructions recorded. Reason for Referral None Reported. Results Created Date Observation Date Name Description Value Unit Range Abnormal Flag Note LastModifiedBy Organization Detail LastModifiedTime 01/19/2001/18/2025 CULTU RE: URINE result report SEE RESULT S BELOW Test: Cultu re: Urine Speci men Sourc e: Urine Voide d Speci men Type: Urine Speci men Date: 2024 Resul t Date: 2024 Resul t Statu s: Final resul t Abnor mal: No Resul ting Lab: [facility] [address] [facility] [address] Tel: CULTU RE ----- ----- ----- --- No growt h in 1 day (dete ction level of 10,00 0 colon ies / ml.) Not Available [facility] (Lab) [address], [place], [address], 01/19/2025 22:24:58 01/19/20 25 01/18/2025 urina lysis , dipst ick Leukocytes +++ Not Available [facility] [address], [place], [address], 01/18/2025 17:48:11 01/19/20 25 01/18/2025 urina lysis , dipst ick Nitrite - Not Available [place] [address], [place], [address], 01/18/2025 17:48:11 01/19/20 25 01/18/2025 urina lysis , dipst ick Urobilinogen Normal Not Available [facility] [address], [place], [address], 01/18/2025 17:48:11 01/19/20 25 01/18/2025 urina lysis , dipst ick Protein + Not Available [place] [address], [place], [address], 01/18/2025 17:48:11 01/19/20 25 01/18/2025 urina lysis , dipst ick pH 5 Not Available [place] [address], [place], [address], 01/18/2025 17:48:11 01/19/20 25 01/18/2025 urina lysis , dipst ick Specific [place] 1.030 Not Available [facility] [address], [place], [address], 01/18/2025 17:48:11 01/19/20 25 01/18/2025 urina lysis , dipst ick Ketone + Not Available [place] [address], [place], [address], 01/18/2025 17:48:11 01/19/20 25 01/18/2025 urina lysis , dipst ick Bilirubin - Not Available [facility] [address], [place], [address], 01/18/2025 17:48:11 01/19/20 25 01/18/2025 urina lysis , dipst ick Glucose Normal Not Available [place] [address], [place], [address], 01/18/2025 17:48:11 01/19/20 25 01/18/2025 urina lysis , dipst ick Appearance cloudy Not Available [facility] [address], [place], [address], 01/18/2025 17:48:11 01/19/20 25 01/18/2025 urina lysis , dipst ick Color yellow Not Available [place] [address], [place], [address], 01/18/2025 17:48:11 01/26/20 25 01/25/2025 US, pelvi s No observ ation record ed. [email or web address] [place] [address], [place], [address], 01/25/2025 17:38:49 01/26/20 25 01/25/2025 US, trans vagin al No observ ation record ed. [email or web address] [place] [address], [place], [address], 01/25/2025 17:39:01 01/26/20 25 01/25/2025 US, trans vagin al No observ ation record ed. [email or web address] [place] [address], [place], [address], 01/25/2025 17:39:12 01/26/20 25 01/25/2025 US, pelvi s No observ ation record ed. [id number], [place], [address], 01/27/2025 18:04:18 Result Notes None recorded. 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, high risk on cervical specimen 482324731 Active 2017 Cervical high risk HPV DNA test positive;P christiano ID: [id number] Not Available [facility] 0 16:04:35 Evaluatio n finding Active 2017 Unsp abnormal cytolog findings in specmn from cervix uteri;Prac thanh ID: 0001 Not Available [facility] 0 16:04:[address] Concept Active 2018 Encntr for general adult medical exam w/o abnormal findings;P christiano ID: [id number] Not Available [facility] 0 16:04:35 At risk - finding [id number] Active 2018 Oth personal risk factors, not elsewhere classified ;Practice ID: 0001 Not Available [facility] 0 16:04:35 Screening for malignant neoplasm of rectum Active 2018 Encounter for screening for malignant neoplasm of rectum;Pra ctice ID: 0001 Not Available [facility] 0 16:04:[address] Concept Active 2018 Well woman check w/o abnormal finding;Re corded Elsewhere: No Locatio n: [facility]: EHR Chroni c: N Practice ID: [id number] Billa ble Time: 02:30:00 PM Not Available [facility] 0 16:04:36 Screening for malignant neoplasm of cervix Active 2018 Encounter for screening for malignant neoplasm of cervix;Rec orded Elsewhere: No Locatio n: [facility]: EHR Chroni c: N Practice ID: 0001 Billa ble Time: 02:30:00 PM Not Available [facility] 0 16:04:36 Tinea corporis 25252899 Active 2017 Tinea corporis;R ecorded Elsewhere: No Locatio n: [facility]: EHR Chroni c: N Practice ID: 0001 Billa ble Time: 01:00:00 PM Not Available [facility] 0 16:04:36 Problem Notes None recorded. Procedures Surgical History Date Name Laterality Status Provider Name and Address Organization Details Recorded Time 2 repair of ankle completed [facility] 01/18/2025 16:38:13 4 replacement of bilateral knee joints completed [facility] 01/18/2025 16:37:16 4 salpingo-oophor ectomy completed [facility] 01/18/2025 16:35:53 4 endometrial ablation completed [facility] 01/18/2025 16:36:06 4 [facility] 01/18[facility]25 16:35:12 spinal arthrodesis completed [facility] 01/18/2025 16:37:47 Imaging Results None recorded. Procedure Notes None recorded. Medical Equipment None Reported. Allergies Allergen ID Allergen Name Allergen Category Reaction Reaction Severity Criticality Documentation Date Start Date Code Code System Note Provider Name and Address Organization Details Recorded Time 96528 pregabali n medicatio n Not available Not available Not available 07/21/2020 74292 2 RxNorm Comme nt: [facility] Agent : Zofia a; Not Available [facility] 0 14:20:49 86019 Ativan medicatio n Not available Not available Not available 01/18/202519704 9 [facility] 5 16:18:40 77006 adhesive tape environme nt,medica tion Not available Not available Not available 01/18/2025 [id number] UNK [facility] 5 16:18:47 Medications Name Sig Start Date Stop Date Status Note LastModified by Organization Details LastModified Time losartan 50 mg tablet TAKE 1 TABLET BY MOUTH EVERY DAY active Not Available Not Available No t Available pramipexo le 1 mg tablet take 1 tablet by oral route 3 times every day active Prescrib ed Elsewher e: Yes Loca tion: [facility] M odify By: gilberto Braxton ncounter DateTime : 01/06/20 18 01:00:00 PM Not Available Not Available Not Available levothyro xine 137 mcg tablet TAKE 1 TABLET BY MOUTH EVERY DAY 01/18 completed Not Available Not Available Not Available Keppra 500 mg tablet Take 1 tablet twice a day by oral route. active Not Available Not Available No t Available oxcarbaze pine 150 mg tablet TAKE 1 (ONE) TABLET BY MOUTH 2 TIMES DAILY active Not Available Not Available No t Available amitripty line 75 mg tablet take 1 tablet by oral route every day at bedtime 01/18 completed Prescrib ed Elsewher e: Yes Loca tion: Ervin braxton [facility] odify By: gilberto nj DateTime : 01/06/20 18 01:00:00 PM Not Available Not Available Not Available nystatin 100,000 unit/gram topical ointment apply by topical route 2 times every day to the affected area(s) 01/18 completed Prescrib ed Elsewher e: Yes Loca tion: Ervin braxton [facility] odify By: gilberto Braxton ncounter DateTime : 01/06/20 18 01:00:00 PM Not Available Not Available Not Available benzonata te 200 mg capsule take 1 capsule by oral route 3 times every day as needed for cough 02/11 completed Prescrib ed Elsewher e: Yes Loca tion: Ervin braxton [facility] odify By: remi langleyuntjaqui DateTime : 01/06/20 18 01:00:00 PM Not Available Not Available Not Available sulfameth oxazole 400 mg-trimet hoprim 80 mg tablet take 2 tablet by oral route every 12 hours 08/11 completed Prescrib ed Elsewher e: Yes Loca tion: Ervin braxton [facility] odify By: rosalie nj DateTime : 01/06/20 18 01:00:00 PM Not Available Not Available Not Available carbidopa 25 mg-levodo pa 250 mg tablet take 1 tablet by oral route 3 times every day active Prescrib ed Elsewher e: Yes Loca tion: Ervin braxton [facility] odify By: gilberto langleyuntjaqui DateTime : 01/06/20 18 01:00:00 PM Not Available Not Available Not Available meloxicam 15 mg tablet take 1 tablet by oral route every day 02/11 completed Prescrib ed Elsewher e: Yes Loca tion: Ervin braxton [facility] odify By: remi langleyuntjaqui DateTime : 01/06/20 18 01:00:00 PM Not Available Not Available Not Available clonazepa m 0.5 mg tablet TAKE 1 TABLET BY MOUTH TWICE A DAY NEEDED FOR ANXIETY active Not Available Not Available No t Available carbidopa ER 50 mg-levodo pa 200 mg tablet,ex tended release TAKE 1 (ONE) TABLET BY MOUTH 2 TIMES DAILY active Not Available Not Available No t Available topiramat e 25 mg tablet take 2 tablet by oral route 2 times every day in the morning and evening 01/18 completed Prescrib ed Elsewher e: Yes Loca tion: Ervin braxton [facility] odify By: gilberto nj DateTime : 01/06/20 18 01:00:00 PM Not Available Not Available Not Available Klor-Con 20 mEq oral packet take 1 packet by oral route 4 times every day dissolve d in 4-6 ounces of cold water or juice active Prescrib ed Elsewher e: Yes [facility]oca [facility]: [facility] odify By: gilberto nj DateTime : 01/06/20 18 01:00:00 PM Not Available Not Available Not Available omeprazol e 40 mg capsule,d elayed release 40 MG ORALLY DAILY 01/18 completed Not Available Not Available Not Available triamtere ne 37.5 mg-hydroc hlorothia zide 25 mg capsule take 1 capsule by oral route every day 01/18 completed Prescrib ed Elsewher e: Yes Loca tion: Juan C fox [facility] odify By: gilberto nj DateTime : 01/06/20 18 01:00:00 PM Not Available Not Available Not Available ranitidin e 25 mg/mL injection solution infuse by intraven ous route every 8 hours over 01/18 completed Prescrib ed Elsewher e: Yes Loca tion: Juan C fox [facility] odify By: gilberto nj DateTime : 01/06/20 18 01:00:00 PM Not Available Not Available Not Available levothyro xine 100 mcg tablet TAKE 1 TABLET BY MOUTH EVERY DAY 01/18 completed Not Available Not Available Not Available bupropion HCl 100 mg tablet take 1 tablet by oral route 2 times every day 01/18 completed Prescrib ed Elsewher e: Yes Loca tion: Juan C fox [facility] odify By: gilberto nj DateTime : 01/06/20 18 01:00:00 PM Not Available Not Available Not Available levothyro xine 88 mcg tablet TAKE 1 TABLET BY MOUTH EVERY DAY active Not Available Not Available No t Available potassium chloride ER 20 mEq tablet,ex tended release(p art/cryst ) 20 MEQ ORALLY DAILY active Not Available Not Available No t Available levothyro xine 200 mcg intraveno us powder for solution inject by intraven ous route every day 01/18 completed Prescrib ed Elsewher e: Yes Loca tion: Ervin braxton [facility] odify By: gilberto nj DateTime : 01/06/20 18 01:00:00 PM Not Available Not Available Not Available dicyclomi ne 20 mg tablet TAKE 1 TABLET BY MOUTH TWICE A DAY 01/18 completed Not Available Not Available Not Available Vitamin C oral powder active Prescrib ed Elsewher e: Yes Loca [facility]ion: [facility] odify By: gilberto langleyuntjaqui DateTime : 01/06/20 18 01:00:00 PM Not Available Not Available Not Available hydrocodo ne 7.5 mg-acetam inophen 325 mg tablet TAKE 1 TABLET BY MOUTH FOUR TIMES A DAY active Not Available Not Available No t Available ferrous sulfate 325 mg (65 mg iron) tablet TAKE 1 TABLET BY MOUTH EVERY OTHER DAY active Not Available Not Available No t Available lisinopri l 10 mg tablet TAKE 1 TABLET BY MOUTH EVERY DAY 01/18 completed Not Available Not Available Not Available losartan 25 mg tablet TAKE 1 TABLET BY MOUTH EVERY DAY 01/18 completed Not Available Not Available Not Available gabapenti n 300 mg capsule TAKE 1 CAPSULE BY MOUTH TWICE A DAY active Not Available Not Available No t Available omeprazol e 20 mg capsule,d elayed release take 1 capsule by oral route every day before a meal 01/18 completed Prescrib ed Elsewher e: Yes Loca tion: Ervin [facility] odify By: gilberto nj DateTime : 01/06/20 18 01:00:00 PM Not Available Not Available Not Available amoxicill in 250 mg capsule take 2 capsule by oral route 4 times every day 01/18 completed Prescrib ed Elsewher e: Yes Loca tion: Ervin braxton [facility] odify By: gilberto nj DateTime : 01/06/20 18 01:00:00 PM Not Available Not Available Not Available monteluka st 10 mg tablet TAKE 1 TABLET BY MOUTH EVERY DAY active Not Available Not Available No t Available gabapenti n 100 mg capsule TAKE 3 (THREE) CAPSULES BY MOUTH AT BEDTIME 01/18 completed Not Available Not Available Not Available albuterol sulfate HFA 90 mcg/actua tion aerosol inhaler TAKE 2 PUFFS BY MOUTH EVERY 4 HOURS NEEDED active Not Available Not Available No t Available Vitamin D2 1,250 mcg (50,000 unit) capsule take 1 capsule by oral route every week active Prescrib ed Elsewher e: Yes Loca tion: Ervin braxton [facility] odify By: gilberto langleyunter DateTime : 01/06/20 18 01:00:00 PM Not Available Not Available Not Available carbidopa 25 mg-levodo pa 100 mg tablet TAKE 2 (TWO) TABLETS BY MOUTH 3 TIMES DAILY active Not Available Not Available No t Available ketoconaz ole 2 % topical cream apply by topical route every day to the affected area(s) 01/18 completed Prescrib ed Elsewher e: No Locat ion: Ervin braxton [facility] odify By: ruth tz Encou nter DateTime : 01/29/20 18 01:00:00 PM Not Available Not Available Not Available ondansetr on 4 mg disintegr ating tablet TAKE 1 TABLET BY MOUTH EVERY 8 HOURS NEEDED FOR NAUSEA AND VOMITING active Not Available Not Available No t Available multivita min capsule take 1 capsule by oral route every day active Prescrib ed Elsewher e: Yes Loca tion: Ervin braxton [facility] odify By: gilberto langleyunter DateTime : 01/06/20 18 01:00:00 PM Not Available Not Available Not Available magnesium 30 mg tablet active Prescrib ed Elsewher e: Yes Loca tion: Ervin [facility] odify By: gilberto langleyunter DateTime : 01/06/20 18 01:00:00 PM Not Available Not Available Not Available metronida zole 0.75 % topical gel apply by topical route 2 times every day a thin layer to the affected area(s) in the morning and evening 08/11 completed Prescrib ed Elsewher e: Yes Loca tion: [place] [facility] odify By: rosalie nj DateTime : 01/06/20 18 01:00:00 PM Not Available Not Available Not Available oxycodone 5 mg tablet TAKE 1 TABLET BY MOUTH EVERY 6 HOURS NEEDED FOR PAIN 01/18 completed Not Available Not Available Not Available bupropion HCl XL 300 mg 24 hr tablet, extended release TAKE 1 TABLET BY MOUTH EVERY MORNING active Not Available Not Available No t Available duloxetin e 30 mg capsule,d elayed release take 1 capsule by oral route 3 times every day 01/18 completed Prescrib ed Elsewher e: Yes Loca tion: Ervin braxton [facility] odify By: gilberto nj DateTime : 01/06/20 18 01:00:00 PM Not Available Not Available Not Available duloxetin e 60 mg capsule,d elayed release TAKE 1 CAPSULE BY MOUTH EVERY DAY active Not Available Not Available No t Available Zofran active Not Available Not Availa ble Not Available Cogentin active Not Available Not Avai lable Not Available omeprazol e active Not Available Not Available Not Available hydrocodo ne 5 mg-acetam inophen 300 mg tablet take 1 tablet by oral route every 4 - 6 hours as needed for pain 01/18 completed Prescrib ed Elsewher e: Yes Loca tion: Ervin braxton [facility] odify By: gilberto nj DateTime : 01/06/20 18 01:00:00 PM Not Available Not Available Not Available Super B Complex + C 150 mg tablet active Prescrib ed Elsewher e: Yes Loca tion: Ervin braxton [facility] odify By: gilberto nj DateTime : 01/06/20 18 01:00:00 PM Not Available Not Available Not Available Fish Oil 300 mg-1,000 mg capsule active Prescrib ed Elsewher e: Yes Loca tion: Ervin [facility] odify By: gilberto nj DateTime : 01/06/20 18 01:00:00 PM Not Available Not Available Not Available Calcium 600 + D(3) 600 mg-5 mcg (200 unit) capsule 01/18 completed Prescrib ed Elsewher e: Yes Loca tion: Ervin braxton [facility] odify By: gilberto garridoer DateTime : 01/06/20 18 01:00:00 PM Not Available Not Available Not Available Vitamin D3 125 mcg (5,000 unit) tablet active Prescrib ed Elsewher e: Yes Loca tion: Ervin braxton [facility] odify By: gilberto langleyunter DateTime : 01/06/20 18 01:00:00 PM Not Available Not Available Not Available Hair,Skin ,Nails with Biotin 7.5 mg-7.5 unit-1,25 0 mcg chewable tablet active Prescrib ed Elsewher e: Yes Loca tion: Ervin braxton [facility] odify By: gilberto langleyunter DateTime : 01/06/20 18 01:00:00 PM Not Available Not Available Not Available fluticaso ne propionat e, micronize d (bulk) 100 % powder 01/18 completed Prescrib ed Elsewher e: Yes Loca tion: Juan C fox [facility] odify By: gilberto nj DateTime : 01/06/20 18 01:00:00 PM Not Available Not Available Not Available Probiotic 15 billion cell capsule active Prescrib ed Elsewher e: Yes Loca tion: [facility] odify By: gilberto nj DateTime : 01/06/20 18 01:00:00 PM Not Available Not Available Not Available Vitals Date Recorded Body height Body mass index (BMI) Body weight Systolic And Diastolic Provider Name and Address Organization Details Last Updated DateTime 01/18/2025 147.32 cm 38.3 kg/m2 35219.84 g 117/84 mm[Hg] Gissel Valencia [facility] 01/18/2025 16:18:21 Social History Question Answer Notes LastModified by Organizat ion Details LastModified Time Tobacco Smoking Status Never Smoker Gissel lowe [facility] 01/18/2025 16:34:52 In The 14 Days Before Symptom Onset, Have You Had Close Contact With A Laboratory-confirm ed COVID-19 While That Case Was Ill? No [email or web address] Information n ot available 01/18/2025 In The 14 Days Before Symptom Onset, Have You Had Close Contact With A Person Who Is Under Investigation For COVID-19 While That Person Was Ill? No Information not available 01/18/2025 Have You Been To An Area Known To Be High Risk For COVID-19? No Information not available 01/18/2025 Sex: Unknown Functional Status None recorded. Mental Status None recorded. Family History Relationship Description Onset Age of this Age Resolved Age Notes LastModified by Organization Details LastModified Time Mother Malignant tumor of breast [email or web address] Not available 2024 16:33:21 Mother Disorder of thyroid gland [email or web address] Not available 2024 16:34:39 Paternal Grandmother Malignant tumor of colon [email or web address] Not available 2024 16:33:48 Paternal Grandfather Malignant tumor of colon [email or web address] Not available 2024 16:33:48 Sister Muscular dystrophy Not available 2024 16:34:25 Notes:Father: Infertility Ma ternal aunt: Cancer, breast Mother: Infertility, Thyroid disease, Cancer, breast Paternal grandfather: Cancer, colon Paternal grandmother: Cancer, colon Sister: Genetic disease, Infertility Medical History Condition Response Allergies (Food, seasonal, environmental ) N Other N Blood Transfusion N Drug/Latex Allergies/Reactions Y Breast Cancer N Dermatologic Disorders N Lung Disease N Defects or Inherited Disease N Breast Problem N Gestational Diabetes N Hematologic disorders N Anesthesia Complications N History of STI Y Deep Vein Thrombosis N Polycystic ovary syndrome N Anxiety Disorder Y Autoimmune disease N Arthritis N Infertility N Polyps N Acid Reflux (GERD) Y History of abnormal pap N Cancer N Stroke N Varicosities N Neurologic/Epilepsy N Endometriosis N High Cholesterol N Headaches N Fibromyalgia N Kidney Disease N Heart Problems N Kidney or Bladder Problems N Thyroid Problems Y GI Problems N Eating Disorder N Anemia N Art (IVF or FET) N Psychiatric Illness N Ovarian Cancer N Diabetes N Pulmonary (TB, Asthma) Y Hepatitis/Liver Disease Y No Past Medical History N Eczema N Urinary Tract Infection N Abuse/Domestic Violence N Asthma Y Trauma/Violence N Depression/ depression Y Heart Disease N Pre-Eclampsia N Hypertension Y Osteoporosis N Thrombophilias N Gynecological History Statement/Question Response Abnormal Pap N Date of Last Mammogram STIs/STDs Y HPV Vaccine N Current Control Method Menopause If Post Menopausal, Age at Menopause 48 Date of Last Colonoscopy Sexually Active? Y Menses Monthly N Date of DEXA bone scan Date of Last Pap Smear Sexual Problems? N Obstetrics History GPAL:G 3 P 2 0 1 2 Type Value Full Term 2 Spontaneous 1 Living 2 Total 3 Past Encounters Encounter ID Performer Location Encounter Start Date Encounter Closed Date Diagnosis/Indication Diagnosis SNOMED-CT Code Diagnosis ICD10 Code Diagnosis Note [id number] NOEMY Pringle [place] [address] [address] 01/18/2025 15:48:34 01/19/2025 10:07:18 Pain in pelvis 56165608 R10.2 Detailed health hx obtained and reviewed todayUA done, urine cx sentwe agreed to update pelvic u/swill reach out to pt with results when availablee ncouraged continued PCP/GI fu as well Time spent in visit is a total of 25 mins with at least 50% of visit consisting of counseling and review of plan of care. Right lowe r quadrant pain 395780523 R10.31 [id number] Jesus Pond MD [place] [address] [address] 01/25/2025 14:42:21 01/25/2025 15:18:43 Pain in pelvis 98912017 R10.2 Health Concerns Section Related Observation LastModified by Organization Detai ls LastModified Time None Recorded Concern Status LastModified by Organization Details LastModified Time None Recorded Advance Directives Directive None Recorded Payers Insurance Date Sequence Insurance Name Policy Number Policy Luna Covered Member ID Luna Member ID Guarantor Name 01/22/2025 2 [employer] (MEDICARE SUPPLEMENT) Heather Pipes [id number] Heather Pipes 01/20/2025 1 [place] Heather M Pipes [id number] Heather Pipes Notes Date Note Type Note Provider Name and Address Organization Details Recorded Time 01/18/2025 text/html 69yoh/o unilater al SO (unsure side) and endometrial ablation in 2004 - one ovary remainsPresents for evaluation of lower right sided abdominal. Symptoms started 6 months ago, dull ache that she feels a few times per week. Recently saw PCP, had CT scan done (wnl per pt). Saw GI, recently had a colonoscopy and endoscopy (has follow-up with GI scheduled this week to discuss findings). Often has constipation or diarrhea. No urinary symptoms. No vaginal d/c, odors, itching. Occasionally SA, denies any pain. NOEMY Pringle [address], [place], [address], [facility] 01/19/2025 08:51:16 OBGyn Episode Ob Episode Information Episode Created Date Number of Fetuses Patient Bloodtype Patient rh Status Prepregnancy Weight lbs Domestic Partner Domestic Partner Phone Father Name Geographic Area Intelligence Officer Status 01/19/20 25 1 CLOSED Fetus Data First Name Last Name Admitted to NICU Weight (g) Sex Living Outcome Pediatric Complications Fetus ID Race Codes Race Delivery Type [phone] F Full Term [id number] Vaginal Delivery Bernard Calculation Initial Bernard Date Initial Exam Date Initial Exam Provider Initial Ultrasound Date Last Menstrual Period Date Ultra Sound Weeks Gestation 0 Eighteen To Twenty Week Bernard Update Ultra Sound Date Fundal Height At Umbil Quickening Date Ultra Sound Latest Weeks Gestation Final Bernard Confirmed By Final Bernard Confirmed Date Final Bernard Date Ultra Sound Latest Days Gestation 0 0 Menstrual History Last Menstrual Date Menses Monthly On Bcp Conception Prior Menses Frequency Hcg Plus Date Menarche Onset Age Delivery Information Delivery Date Delivery Type Labor Anesthesia Weeks Gestation Incision Type Labor Labor Length Hrs Delivered By Post Complications Tubal Sterilization Discharge Date Comments 1 Discharge Information Feeding Method Contraceptive Method Maternal HG B and HCT Levels Ob Episode Information Episode Created Date Number of Fetuses Patient Bloodtype Patient rh Status Prepregnancy Weight lbs Domestic Partner Domestic Partner Phone Father Name Geographic Area Intelligence Officer Status 01/19/20 25 1 CLOSED Fetus Data First Name Last Name Admitted to NICU Weight (g) Sex Living Outcome Pediatric Complications Fetus ID Race Codes Race Delivery Type , Spontane ous [id number] Bernard Calculation Initial Bernard Date Initial Exam Date Initial Exam Provider Initial Ultrasound Date Last Menstrual Period Date Ultra Sound Weeks Gestation 0 Eighteen To Twenty Week Bernard Update Ultra Sound Date Fundal Height At Umbil Quickening Date Ultra Sound Latest Weeks Gestation Final Bernard Confirmed By Final Bernard Confirmed Date Final Bernard Date Ultra Sound Latest Days Gestation 0 0 Menstrual History Last Menstrual Date Menses Monthly On Bcp Conception Prior Menses Frequency Hcg Plus Date Menarche Onset Age Delivery Information Delivery Date Delivery Type Labor Anesthesia Weeks Gestation Incision Type Labor Labor Length Hrs Delivered By Post Complications Tubal Sterilization Discharge Date Comments 3 Discharge Information Feeding Method Contraceptive Method Maternal HG B and HCT Levels Ob Episode Information Episode Created Date Number of Fetuses Patient Bloodtype Patient rh Status Prepregnancy Weight lbs Domestic Partner Domestic Partner Phone Father Name Geographic Area Intelligence Officer Status 01/19/20 25 1 CLOSED Fetus Data First Name Last Name Admitted to NICU Weight (g) Sex Living Outcome Pediatric Complications Fetus ID Race Codes Race Delivery Type [phone] F Full Term [id number] Primary Bernard Calculation Initial Bernard Date Initial Exam Date Initial Exam Provider Initial Ultrasound Date Last Menstrual Period Date Ultra Sound Weeks Gestation 0 Eighteen To Twenty Week Bernard Update Ultra Sound Date Fundal Height At Umbil Quickening Date Ultra Sound Latest Weeks Gestation Final Bernard Confirmed By Final Bernard Confirmed Date Final Bernard Date Ultra Sound Latest Days Gestation 0 0 Menstrual History Last Menstrual Date Menses Monthly On Bcp Conception Prior Menses Frequency Hcg Plus Date Menarche Onset Age Delivery Information Delivery Date Delivery Type Labor Anesthesia Weeks Gestation Incision Type Labor Labor Length Hrs Delivered By Post Complications Tubal Sterilization Discharge Date Comments 4 Discharge Information Feeding Method Contraceptive Method Maternal HG B and HCT Levels
== END 2025-02-10 14:22 | disposition home or self-care (01) ==
LOC: ANHIMG 14:22
PROVIDERS: PCP Nurse Practitioner Family; Visit Provider Nurse Practitioner Family
DX: Z12.31 Encounter for screening mammogram for malignant neoplasm of breast (principal)
CPT/HCPCS: 77063; 77067

== ENCOUNTER 2025-02-22 09:37 | Outpatient (CLI) | payer MEDICARE, SELFPAY ==
--- OUTSIDE RECORDS SUMMARY | 2025-02-22 09:46 | XMS_ITS | Clinical Summary ---
Author Organization [facility] Address [address] [place] [address] Care Team Providers Care General Repairer Name Role Phone Juana Nguyen MD Primary Care Provider + [phone] Allergies Active Allergy Reactions Criticality Noted Date [...] Oral q hs, Route to Pharmacy Electronically, [facility]/pharmacy #[id number], 150, 09/27/21 13:13:00 RECORD CLERK, Height/Length Dosing, cm, 97.8, 09/25/21 18:28:00 RECORD CLERK, Weight Dosing, kg 2 Active omeprazole 40 [...] virus vaccine, PF, 0.5 ML injection Afluria 1742-9625(PF) 45 mcg (15 mcg x 3)/0.5 mL [...] mg tablet Active vitamin D2, ergocalciferol , 75027 UNITS capsule Take 50,000 Units by mouth [...] age to complete this topic Insurance MEDICARE [facility] Care Teams General Repairer Relationship Specialty Start Date End Date Juana Nguyen MD [address], [place], [place] [id number] PCP - General 06/26/14
--- OUTSIDE RECORDS SUMMARY | 2025-02-22 09:46 | XMS_ITS | Clinical Summary ---
Author Organization [facility] Address [address] [place] [address] Care Team Providers Care Multimedia Programmer Name Role Phone Dayanna Aj Adam LUCIA-MACHINE BASTER Primary Care Provider Source Comments [facility],non-owned Affiliates and Associated Physician Practices is amultiple site organization consisting of ambulatory clinics and hospital sitesin [place], [place], [place] and [place]. This disclosure is being madepursuant to the Care Everywhere program and may not contain all information available regarding this patient. Last updated 18.[facility] [employer] Allergies Active Allergy Reactions Criticality Noted Date [...] mouth every 6 hours as needed Active [place]-3 Fatty Acids (fish oil) 1000 MG capsule [...] once daily 11/01/19 22 Active HYDROcodone-acet aminophen ([place]) 7.5-325 MG tablet Take 1 (one) tablet by mouth every 6 hours as needed for Pain Active Klor-Con M20 20 MEQ tablet Take 1 (one) tablet by mouth once daily 02/06/20 23 Active nystatin (Mycostatin) 701026 UNIT/GM cream 04/22/20 23 Active amoxicillin (Amoxil) 500 MG capsule as needed 08/06/19 24 Active benztropine (Cogentin) 1 MG tablet Take 1 (one) tablet by mouth once daily Active vitamin D, ergocalciferol, (Drisdol) 1.25 MG (26336 UT) capsule 10/09/19 24 Active lisinopril (Prinivil; [...] sprayIndications :Allergic rhinitis, unspecified seasonality, unspecified trigger Ruth 2 (two) sprays into each nostril once [...] Type Department Care Team Description 02/09/2025 Telephone [facility] [address] [place] [address] Duncan Sharp DO Surgery Scheduling 01/01/2025 Telephone [facility] - Neurology [address] [place] [phone] Saima Villa MD Medication Problem 12/31/2024 Refill [facility] [address] [place] [phone] Yadira Mcnally, KHARI-MACHINE BASTER Refill Request from Last 3 Months Immunizations Immunization Administration Dates Next Due INFLUENZA VACCINE, TRIV. (AF LURIA, FLUZONE TRIVALENT; 6MO+) (IIV3) 07/04/2014,05/10/2013 COVID PFIZER 12+YR 30MCG/0.3mL 05/02/2023 COVID PFIZER BIVALENT 12Y+ 30mcg/0.3ML 04/16/2022 Covid Pfizer primary monoval ent 12+ yr 0.3mL Purple cap 05/03/2021,10/10/2020,09/19/2020 FLU VACCINE TRI IIV3 SPLIT I M (FLUVIRIN) 05/26/2013,05/15/2013 INFLUENZA [id number], HISTORIC VACCINE 05/04,05/20/2022,05/10/2021,2020 INFLUENZA VACCINE, ADJUVANTE D, [...] Office Visit [facility] - Neurology [address] [place] [address], [place] [phone] Katie Augustin APRN-ARIEL [address] [place] [address] [place] [phone] Health Maintenance Due Date Last Done Comments [...] per facility. Medical Devices Implanted Type Area Bindery Operator Device Identifier Shelf Expiration Date Model / Serial / Lot Mri Unsafe Moreira Neuro Stimulator Neuro Stimulator [id number] / / Description:per manual MRI u nsafe 3.5 Mm Lateral Distal Fibula Plate Implanted:Qt y: 1 on 09/22/2021 by Gonzales Rey, DO at [facility] Plate Right: Ankle [employer] [id number] / / Screw 3.5mm 14mm Slf-Tap Cortx Evos Strl Implanted:Qt y: 4 on 09/22/2021 by Gonzales Rey, DO at [facility] Screw Right: Ankle [employer] [id number] / / Screw 3.5mm 48mm Slf-Tap Cortx Evos Strl Implanted:Qt y: 1 on 09/22/2021 by Gonzales Rey, DO at [facility] Screw Right: Ankle [employer] [id number] / / Screw 3.5mm 55mm Slf-Tap Cortx Evos Strl Implanted:Qt y: 1 on 09/22/2021 by Gonzales Rey, DO at [facility] Screw Right: Ankle [employer] [id number] / / Fully Threaded 4.7 Mm Osteopenia Screw Implanted:Qt y: 1 on 09/22/2021 by Gonzales Rey, DO at [facility] Screw Right: Ankle [employer] [id number] / / 3.5 Mm Locking Screw Implanted:Qt y: 1 on 09/22/2021 by Gonzales Rey, DO at [facility] Screw Right: Ankle [employer] [id number] / / Kit Bngf 3cc Aug Inj Implanted:Qt y: 1 on 10/14/2022 by Amy Mondragon MD at [facility] Right: Ankle [employer] 05/03/2023 [id number] / / [id number] Kit Bngf 3cc Aug Inj Implanted:Qt y: 1 on 10/14/2022 by Amy Mondragon MD at [facility] Right: Ankle [employer] 05/03/2023 [id number] / / [id number] Graft Bone Canc 4-9.5mm 15cc Frzdr Chp Implanted:Qt y: 1 on 10/14/2022 by Amy Mondragon MD at [facility] Right: Ankle [employer] 08/19/2026 [id number] / / [id number] Right Small Nail Implanted:Qt y: 1 on 10/14/2022 by Amy Mondragon MD at [facility] Right: Ankle [employer] 05/20/2030 [id number] / / [id number] Screw 5mm 25mm Valor Ti Hindfoot Fsn Sys Implanted:Qt y: 1 on 10/14/2022 by Amy Mondragon MD at [facility] Right: Ankle [employer] 07/16/2030 [id number] / / [id number] Screw 5mm 30mm Valor Ti Hindfoot Fsn Sys Implanted:Qt y: 1 on 10/14/2022 by Amy Mondragon MD at [facility] Right: Ankle [employer] 08/23/2030 [id number] / / [id number] 5x40mm Screw Implanted:Qt y: 1 on 10/14/2022 by Amy Mondragon MD at [facility] Right: Ankle [employer] [id number] 07/16/2030 [id number] / / [id number] 5x70mm Screw Implanted:Qt y: 1 on 10/14/2022 by Amy Mondragon MD at [facility] Right: Ankle [employer] [id number] 01/16/2030 [id number] / / [id number] Screw 3.5mm 18mm T10 Ft Strdr Nonster Implanted:Qt y: 1 on 10/14/2022 by Amy Mondragon MD at [facility] Right: Ankle [employer] [id number] / / Screw 3.5mm 50mm T10 Ft Strdr Nonster Implanted:Qt y: 1 on 10/14/2022 by Amy Mondragon MD at [facility] Right: Ankle [employer] [id number] / / Graft Bone Ignite Dbm 20ml Pwr Mx Inj - [id number] Implanted:Qt y: 1 on 10/14/2022 by Amy Mondragon MD at [facility] Right: Ankle [employer] 03/18/2026 [id number] / [id number] / Lead Nrstm Inspr 3 Eltrd Cuf Tnl Pelon - [id number] Implanted:Qt y: 1 on 05/10/2024 by Sriram Simon MD at [facility] Right: Neck [employer] [id number] 06/29/2026 [id number] / [id number] / Lead Ns Resp - [id number] Implanted:Qt y: 1 on 05/10/2024 by Sriram Simon MD at [facility] Right: Chest [employer] [id number] 09/15/2026 [id number] / [id number] / Gntr Nrstm - [id number] Implanted:Qt y: 1 on 05/10/2024 by Sriram Simon MD at [facility] Right: Chest [employer] [id number] 07/14/2026 [id number] / [id number] / Explanted Type Area Bindery Operator Device Identifier Shelf Expiration Date Model / Serial / Lot Fully Threaded 4.7 Mm Osteopenia Screw Explanted:Qty: 1 on 09/22/2021 by Gonzales Rey DO at [facility] Screw Right: Ankle [employer] [id number] / / Wire K 1.6mm 150mm Troc Pnt Ss Fx Strl Explanted:Qty: 2 on 09/22/2021 by Gonzales Rey DO at [facility] Wire Right: Ankle [employer] [id number] / / Procedures Procedure Name Priority Date/Time Associated Diagnosis Comments BASIC METABOLIC PANEL (CALCIUM TOTAL) STAT 03/17/2024 10:43 AM CDT [place] (obstructive sleep apnea) from Last 3 Months or Most Recently Relevant to Health Maintenance Results * (ABNORMAL) BASIC METABOLIC PANEL (CALCIUM TOTAL) (03/17/2024 10:43 AM CDT) BUN 21 7 - 26 mg/dL 03/17/2024 11:21 AM [facility] Creatinine 0.56 0.56 - 0.96 mg/dL 03/17/2024 11:21 AM [facility] Sodium 138 136 - 145 mmol/L 03/17/2024 11:21 AM [facility] Potassium 4.3 3.5 - 4.5 mmol/L 03/17/2024 11:21 AM [facility] Chloride 104 98 - 107 mmol/L 03/17/2024 11:21 AM [facility] CO2 26 22 - 29 mmol/L 03/17/2024 11:21 AM [facility] Glucose 99 70 - 115 mg/dL 03/17/2024 11:21 AM [facility] Calcium 9.4 8.4 - 10.2 mg/dL 03/17/2024 11:21 AM [facility] Anion Gap 8 6 - 16 03/17/2024 11:21 AM [facility] BUN/Creatinine Ratio 38(H) 7 - 23 03/17/2024 11:21 AM [facility] Osmolality Calculated 289 275 - 295 mOsm/kg 03/17/2024 11:21 AM [facility] eGFR by CKD-EPI >90 >=90 mL/min/1.7 3 m2 03/17/2024 11:21 AM [facility] Blood BLOOD SPECIMEN / Unknown Line Draw / Unknown 03/17/2024 10:43 AM CDT 03/17/2024 10:49 AM T us Sriram Simon MD LAB - CHEMISTRY ORDERABLE S Final Result [facility] [address] [place] [id number], [facility] [phone] from Last 3 Months or Most Recently Relevant to Health Maintenance Insurance MEDICARE [facility] [address] [facility] Advance Directives * Full Code (Latest Code Status on File) Date Activated Date Inactivated Comments 10/14/2022 12:56 PM 10/15/2022 3:28 PM * Full Code Date Activated Date Inactivated Comments 09/21/2021 11:17 AM 09/25/2021 3:39 PM Care Teams Multimedia Programmer Relationship Specialty Start Date End Date Dayanna Aj, MEMBERSHIP ASSISTANT-MACHINE BASTER [address] [place] [phone] PCP - General Nurse Practitioner Family 10/08/23
--- OUTSIDE RECORDS SUMMARY | 2025-02-22 09:46 | XMS_ITS | Data Portability ---
Author Organization [place] [facility], Main Office Address [address] [place] [address] Assessment Encounter Date Assessment Date Assessment LastModified by Organization Details LastModified Time 01/17/2023 01/17/2023 discussed getting shingles and td vaccine. Not available 01/17/2023 14:30:58 08/15/2023 08/15/2023 discussed getting shingles and td vaccine. Not available 08/15/2023 12:18:19 Plan of Treatment Reminders Order Date Submit Date Provider Last Modified By Organization Details Last Modified Time Details Appointments None recorded. Lab lipid panel, serum [address] (Admitting), [address] [place] [address], [phone], 3 08:00:10 TSH, serum, reflex free T4 2022 023 [facility] (Lab), [address] [place] [address], [address], 3 12:25:39 Referral None recorded. Procedures None recorded. Surgeries None recorded. Imaging MAMMO, screening, digital, bilateral 2022 023 [email or web address] [id number] Not available 3 09:06:22 bone density 2022 023 Not available 3 08:57:14 Medication Orders albuterol sulfate HFA 90 mcg/actuati on aerosol inhaler 2023 024 [id number], [address], [place], [address], 4 12:54:52 bupropion HCl XL 300 mg 24 hr tablet, extended release 2023 024 [id number], [address] [facility], [place], [place], [id number], 4 12:54:56 Klor-Con M20 mEq tablet,exte nded release 2023 024 [facility], [address], [place], [address], 4 12:54:52 duloxetine 60 mg capsule,del ayed release 2023 024 [id number], [address], [place], [address], 4 12:54:52 Patient TargetsNo targets recorded. Patient Instructions Encounter Date Encounter Id Patient Instructions Last Modified By Organization Details Last Modified Time 01/17/2023 [id number] fu in 6 mo for check up 30 min Not available 01/17/2023 16:05:19 08/15/2023 [id number] Fu with new pcp in 1-3 mo. 08/15/23 pt aware of samira departure Not available 08/15/2023 12:19:03 Reason for Referral None Reported. Results Created Date Observation Date Name Description Value Unit Range Abnormal Flag Note LastModifiedBy Organization Detail LastModifiedTime 08/22/1908/22/2022 imagi ng/di agnos tic resul t No observ ation record ed. [id number] [facility] [address], [place], [address], 10/02/2022 07:01:19 11/17/19 23 11/16/2022 CT, brain , w/o contr ast No observ ation record ed. [facility] [address], [place], [address], 11/28/2022 15:21:30 11/20/19 23 11/17/2022 iain nuous EEG monit oring , profe sugey al compo nent; 12-26 hrs, with VEEG (PROC ) No observ ation record ed. [facility] [address] [facility] [address], [place], [address], 11/28/2022 15:21:29 02/15/20 23 lipid panel , serum [facility] [address] [place] [address] Patien t Name: ALISA GONZALEZ ion #: [id number] Sex: F : 1954 2 Dictat ed By: Baldomero trevino Attend ing Physic kain: SAMM HOGAN [facility] Physic kain: SAMIRA KEMP Exam Date: 2022 13:43 PM Exam Name: XR DEXA AXIAL/ HIP/PE LVIS/S PINE Admitt ing Diagno sis(es ): CLINIC AL HISTOR Y: Postme nopaus al screen ing for osteop orosis . TECHNI QUE: The study was perfor med using a HidInImage Unit. Left proxim al femora l and [...] at 2022 08:03: 02 AM Page [address] (Imaging) [address] [place], [address], 02/21/2023 08:00:10 02/15/20 23 02/13/2023 bone densi ty No observ ation record ed. [address] [place], [address], 02/18/2023 15:08:12 02/15/20 23 MAMMO , scree michael, digit al, bilat eral [facility] [address] [place] [address] [phone] Patien t Name: ALISA GONZALEZ Access ion #: [id number] Sex: F : 1954 2 Dictat ed By: Baldomero trevino Attend ing Physic kain: SAMM HOGAN [facility] Physic kain: SAMIRA KEMP Exam Date: 2022 [...] at 2022 08:11: 43 AM Page 1 [facility] (Imaging) [address] [place], [address], 02/18/2023 15:08:13 03/07/20 23 03/07/2023 [facility] [address] [address] Patien t Name: ALISA GONZALEZ ion #: [id number] Sex: F : 1954 7 Dictat [...] at 2022 14:21: 10 PM Page [address] (Imaging) [address] [place], [address], 03/12/2023 15:17:05 03/07/20 23 03/07/2023 TSH, serum , refle x free T4 [facility] [address] [place] [address] Patien t Name: ALISA GONZALEZ ion #: [id number] Sex: F : 1954 7 Dictat [...] at 2022 14:21: 10 PM Page [address] (Imaging) [address] [place], [address], 04/11/2023 07:57:39 Result Notes Documentation Provider Name and Address Organization Details Recorded Time Mammo, Screening, Digital, Bilateral : [place] [address] Patient Name: ALISA GONZALEZ Sex: F : [...] 1 Dayanna Manzano RN null, [place] - [facility] [employer] 02/18/2023 15:08:13 Problems Name Problem SNOMED Code Status Onset Date Resolution Date Notes Provider Name and Address Organization Details Recorded Time Excessive cerumen in ear canal 043064268 Completed Not Available [facility] 3 06:57:57 Lumbar radiculop athy 137628960 Active Not Available [facility] 4 07:02:59 Folliculi tis 79343876 Completed Not Available [facility] 3 06:57:57 Otalgia 27020704 Completed Not Available [facility] 3 06:57:57 Skin tag 106980773 Completed Not Available [facility] 3 06:57:57 Gastroeso phageal reflux disease 791077541 Active Not Available [facility] 4 07:02:59 Edema 573556765 Completed Not Available [facility] 3 06:57:58 Leukocyte s in urine 653029482 Completed Not Available [facility] 3 06:57:58 Pain in left lower limb 743633628 Completed Not Available [facility] 3 06:57:58 Periphera l nerve disease 492395125 Active Not Available [facility] 4 07:02:59 Knee pain Active Not Available [facility] 4 07:02:59 Vaginal dryness 18017517 Active Not Available [facility] 4 07:02:59 Restless legs 68344646 Active Not Available [facility] 4 07:02:59 Vitamin D deficienc y 55762083 Active Not Available [facility] 4 07:02:59 Depressiv e disorder 93808309 Active Not Available [facility] 4 07:02:59 Migraine 78791355 Active Not Available [facility] 4 07:02:59 Hypertens nupur disorder 79589977 Active Not Available [facility] 4 07:02:59 Hypothyro idism 06775807 Active Not Available [facility] 4 07:02:59 Psoas syndrome 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 Active Not Available [facility] 4 07:02:59 History of polyp of colon 128808000 Active Not Available [facility] 4 07:02:59 Acute urinary tract infection 369402248 Completed Not Available [facility] 3 06:57:59 Abnormal cervical Papanicol aou smear 662389557 Completed Not Available [facility] 3 06:57:59 Seasonal allergy 881635526 Active Not Available [facility] 4 07:02:59 Anxiety 57951727 Active Not Available [facility] 4 07:02:59 Pain of hip region 87320241 Active Not Available [facility] 4 07:02:59 Sinus headache 0580491 Completed Not Available [facility] 3 06:58:00 Cough 12829086 Completed Not Available [facility] 3 06:58:00 Hyperlipi demia 03792095 Active Not Available [facility] 4 07:02:59 Urinary tract infectiou s disease 26538409 Completed Not Available [facility] 3 06:58:00 Sleep apnea 30098126 Active Not Available [facility] 4 07:02:59 Posterior rhinorrhe a 98603791 Active Not Available [facility] 4 07:02:59 Greater trochante marian pain syndrome 8032148 Active Not Available [facility] 4 07:02:59 Chronic pain 22040761 Active Not Available [facility] 4 07:03:00 Asthma 901863657 Active 2017 Not Available [facility] 4 07:02:59 Hypokalem ia 54377382 Active 2017 Not Available [facility] 4 07:02:59 Essential hypertens ion 19295775 Active 2017 Not Available [facility] 4 07:02:59 Postmenop ausal state 59219122 Active 2017 Not Available [facility] 4 07:02:59 Vaginal discharge 576918467 Active 2017 Not Available [facility] 4 07:02:59 Osteopeni a 527432039 Active 2017 Not Available [facility] 4 07:02:59 Pain in throat 136085346 Active 2018 Not Available [facility] 4 07:02:59 Allergic rhinitis 16243533 Active 2018 Not Available [facility] 4 07:02:59 Fatigue 07561113 Active 2020 Not Available [facility] 4 07:03:00 Periodic limb movement disorder 273316760 Active 2020 Not Available [facility] 4 07:02:59 Dysuria 46884986 Active 2020 Not Available [facility] 4 07:02:59 Hypersomn ia 37206885 Active 2020 Not Available [facility] 4 07:03:00 Obstructi ve sleep apnea syndrome 75921811 Active 2020 Not Available [facility] 4 07:03:00 Congestio n of nasal sinus 11553863 Active 2021 Not Available [facility] 4 07:03:00 Pain of right ankle joint 60665123093 778137 Active 2022 Not Available [facility] 4 07:02:59 Hemifacia l spasm 56735714 Active 2022 Not Available [facility] 4 07:02:59 Iron deficienc y anemia 19452529 Active 2022 Not Available [facility] 4 07:03:00 Mammograp hy abnormal 404301241 Active 2022 Not Available [facility] 4 07:02:59 Candidias is of skin 38906926 Active 2022 Not Available [facility] 4 07:02:59 Problem Notes None recorded. Procedures Surgical History Date Name Laterality Status Provider Name and Address Organization Details Recorded Time 02/14/20 23 Most Recent Bone Density completed Dayanna Hogan NP [address], [place], [address], [facility] 02/16/2023 22:03:01 02/14/20 23 Most Recent Mammogram completed Dayanna Hogan NP [address], [place], [address], [facility] 02/16/2023 22:05:06 09/22/19 22 Ankle Surgery completed Not Available [facility] 10/02/2022 06:55:00 03/04/20 21 Date of Last Colonoscopy completed Dayanna Manzano RN [facility] 11/28/2022 14:59:31 section completed Not Available [facility] 10/02/2022 06:55:00 Tonsillectomy completed Not Available [facility] 10/02/2022 06:55:00 Back Surgery completed Not Available [facility] 10/02/2022 06:55:00 procedure on knee completed Not Available [facility] 10/02/2022 06:55:00 Cholecystectomy completed Not Available [facility] 10/02/2022 06:55:00 Colonoscopy completed Not Available [facility] 10/02/2022 06:55:00 Imaging Results None recorded. Procedure Notes None recorded. Medical Equipment None Reported. Allergies Allergen ID Allergen Name Allergen Category Reaction Reaction Severity Criticality Documentation Date Start Date Code Code System Note Provider Name and Address Organization Details Recorded Time 73030 Lyrica medicatio n edema Not available Not available 10/02/2022 06895 1 RxNorm Not Available [facility] 3 07:01:13 29826 adhesive tape environme nt,medica tion swelling Not available Not available 10/02/2022 98939 UNK Not Available [facility] 3 07:01:13 25119 Ativan medicatio n Not available Not available Not available 11/28/202232233 9 RxNorm Dayanna Manzano RN [facility], [place] [facility] 3 14:49:18 Medications Name Sig Start Date [...] completed Patient [place] [facility] Not Available Not Available Not Available [...] Not Available Not Available Not Available Afluria 3403-1731 45 mcg (15 mcg x 3)/0.5 mL [...] Available Not Available No t Available Afluria 3096-4361 (PF) 45 mcg (15 mcg x 3)/0.5 mL intramusc ular syringe TO BE ADMINIST ERED BY PHARMACI ST FOR IMMUNIZA TION active Not Available Not Available No t Available Flucelvax Quad 6788-5209 (PF) 60 mcg (15 mcg x 4)/0.5 [...] Updated DateTime 4 147.32 cm 30.6 kg/m2 91235.9 4 g 97.4 [degF] 67 /min 20 /min 98 % 98 % 160/100 mm[Hg] Dayanna Manzano RN [facility] 4 12:13:02 Date Recorded Body mass index (BMI) Body height Oxygen saturation Oxygen saturation in Arterial blood by Pulse oximetry Heart rate Respiratory rate Body temperature Body weight Systolic And Diastolic Provider Name and Address Organization Details Last Updated DateTime 3 34.8 kg/m2 147.32 cm 97 % 97 % 82 /min 16 /min 97.7 [degF] 27517.7 7 g 117/78 mm[Hg] Not Available [facility] 3 06:56:57 Date Recorded Body mass index (BMI) Body height Oxygen saturation Oxygen saturation in Arterial blood by Pulse oximetry Heart rate Body temperature Body weight Systolic And Diastolic Provider Name and Address Organization Details Last Updated DateTime 3 34.3 kg/m2 147.32 cm 93 % 93 % 60 /min 96.8 [degF] 29111.1 5 g 128/70 mm[Hg] Not Available [facility] 3 06:56:57 Date Recorded Body height Body mass index (BMI) Body weight Body temperature Heart rate Respiratory rate Oxygen saturation Oxygen saturation in Arterial blood by Pulse oximetry Systolic And Diastolic Provider Name and Address Organization Details Last Updated DateTime 3 147.32 cm 30.3 kg/m2 59608.8 9 g 98 [degF] 74 /min 16 /min 97 % 97 % 110/80 mm[Hg] Dayanna Manzano RN [facility] 3 14:57:01 Date Recorded Body height Body mass index (BMI) Body weight Body temperature Heart rate Oxygen saturation Oxygen saturation in Arterial blood by Pulse oximetry Systolic And Diastolic Provider Name and Address Organization Details Last Updated DateTime 3 147.32 cm 29.3 kg/m2 03537.9 3 g 95.9 [degF] 79 /min 96 % 96 % 128/80 mm[Hg] Dayanna Manzano RN [facility] 3 14:07:08 Social History Question Answer Notes LastModified by Organizat ion Details LastModified Time Tobacco Smoking Status Never Smoker Not Available [facility] 10/02/2022 06:54:52 Do You Have An Advance Directive? No Packet MIGRATION.95651 88560 Information not available 10/02/2022 Are You Blind Or Do You Have Difficulty Seeing? No MIGRATION.36057 81159 Information not available 10/02/2022 Is Blood Transfusion Acceptable In An Emergency? Yes Information not available 11/28/2022 What Is Your Level Of Caffeine Consumption? Heavy MIGRATION.82723 35198 Information not available 10/02/2022 How Much Tobacco Do You Chew? None MIGRATION.08597 71204 Information not available 10/02/2022 What Is Your Code Status? Full [facility] Information not available 11/28/2022 In The 14 Days Before Symptom Onset, Have You Had Close Contact With A Laboratory-confir med COVID-19 While That Case Was Ill? No MIGRATION.26129 49329 Information not available 10/02/2022 In The 14 Days Before Symptom Onset, Have You Had Close Contact With A Person Who Is Under Investigation For COVID-19 While That Person Was Ill? No MIGRATION.98687 90042 Information not available 10/02/2022 Are You Deaf Or Do You Have Serious Difficulty Hearing? No MIGRATION.52805 38706 Information not available 10/02/2022 What Type Of Diet Are You Following? REGULAR MIGRATION.77150 46993 Information not available 10/02/2022 Which Illicit Or Recreational Drugs Have You Used? None MIGRATION.33363 37498 Information not available 10/02/2022 Have There Been Any Changes To Your Family Or Social Situation? No MIGRATION.70755 93769 Information not available 10/02/2022 Do You Use Insect Repellent Routinely? No MIGRATION.35052 81527 Information not available 10/02/2022 Where Do You Live? [facility] MIGRATION.43485 49549 Information not available 10/02/2022 Do You Have A Medical Power Of Jewel Bearing Broacher? No MIGRATION.21804 27980 Information not available 10/02/2022 What Was The Date Of Your Most Recent Tobacco Screening? 01/23/2021 MIGRATION.17940 49879 Information not available 10/02/2022 Do You Have Any Pets? Yes MIGRATION.06980 83486 Information not available 10/02/2022 What Is Your Relationship Status? MIGRATION.90638 17418 Information not available 10/02/2022 Do You Use Your Seat Belt Or Car Seat Routinely? Yes MIGRATION.29758 43085 Information not available 10/02/2022 Do You Have Smoke And Carbon Monoxide Detectors In Your Home? Yes MIGRATION.85162 35074 Information not available 10/02/2022 Are There Any Smokers In Your House? No Information not available 11/28/2022 How Much Tobacco Do You Smoke? No MIGRATION.70443 12305 Information not available 10/02/2022 Do You Participate In Social [employer]cha? Yes MIGRATION.61287 28209 Information not available 10/02/2022 Do You Use Sunscreen Routinely? No MIGRATION.96001 95254 Information not available 10/02/2022 Have You Recently Traveled Abroad? No MIGRATION.56780 76004 Information not available 10/02/2022 Do You Have Difficulty Walking Or Climbing Stairs? Yes MIGRATION.22354 84969 Information not available 10/02/2022 Sex: Female Functional Status Question Answer Note LastModified by [employer] Details LastModified Time What is your level of alcohol consumption? None MIGRATION.073335 7414 Information not available 10/02/2022 Do you or have you ever used smokeless tobacco? Never used smokeless tobacco MIGRATION.093154 8819 Information not available 10/02/2022 Do you have transportation difficulties? No MIGRATION.430321 7607 Information not available 10/02/2022 Are you able to walk? NODEP Information not available 11/28/2022 Do you have difficulty doing errands alone? Yes Information not available 11/28/2022 Are you able to care for yourself? Yes MIGRATION.447917 8248 Information not available 10/02/2022 What is your occupation? Retired MIGRATION.686787 1714 Information not available 10/02/2022 Do you have difficulty dressing or bathing? No MIGRATION.262252 7419 Information not available 10/02/2022 Do you or have you ever used e-cigarettes or vape? Never used electronic cigarettes MIGRATION.092292 5855 Information not available 10/02/2022 What is your exercise level? None MIGRATION.770105 8650 Information not available 10/02/2022 Mental Status Question Answer Note LastModified by [employer] Details LastModified Time Do you feel stressed (tense, restless, nervous, or anxious, or unable to sleep at night)? [id number] MIGRATION.64457689 26 Information not available 10/02/2022 Do you have difficulty concentrating, remembering or making decisions? Yes MIGRATION.95263979 26 Information not available 10/02/2022 Family History Relationship Description Onset Age of this Age Resolved Age Notes LastModified by Organization Details LastModified Time Mother Family history of breast cancer gene BRCA mutation MIGRATION.417 [id number] Not available 10/02/2022 06:55:01 Paternal Grandfather Malignant tumor of colon MIGRATION.322 0136339 Not available 10/02/2022 06:55:01 Paternal Grandmother Malignant tumor of colon MIGRATION.858 2697712 Not available 10/02/2022 06:55:01 Medical History Condition [...] Time Tdap 3 completed Not Available [facility] 08/27/2023 07:03:00 RSV, recombinant, protein subunit RSVpreF, adjuvant reconstituted, 0.5 mL, PF 3 completed Not Available [facility] 08/27/2023 07:03:00 SARS-COV-2 (COVID-19) vaccine, UNSPECIFIED 1 completed Not Available [facility] 08/27/2023 07:03:00 Influenza, high-dose, quadrivalent, PF 2 completed Not Available [facility] 08/27/2023 07:03:00 Influenza, high-dose, quadrivalent, PF 1 completed Not Available [facility] 08/27/2023 07:03:00 COVID-19 Non-US Vaccine, Product Unknown 1 completed Not Available [facility] 08/27/2023 07:03:00 SARS-COV-2 (COVID-19) vaccine, UNSPECIFIED 1 completed Not Available [facility] 08/27/2023 07:03:00 pneumococcal polysaccharide PPV23 0 completed Not Available [facility] 08/27/2023 07:03:00 Influenza, high-dose, trivalent, PF 8 completed Not Available [facility] 08/27/2023 07:03:00 Pneumococcal conjugate PCV 13 5 completed Not Available [facility] 08/27/2023 07:03:00 Influenza, split virus, trivalent, preservative 3 completed Not Available [facility] 08/27/2023 07:03:00 Tdap 2 completed Not Available [facility] 08/27/2023 07:03:00 Influenza, split virus, quadrivalent, PF 6 completed Not Available [facility] 08/27/2023 07:03:00 Pneumococcal conjugate PCV 13 5 completed Not Available [facility] 08/27/2023 07:03:00 Influenza, split virus, trivalent, preservative 4 completed Not Available [facility] 08/27/2023 07:03:00 Influenza, split virus, quadrivalent, preservative 5 completed Not Available [facility] 08/27/2023 07:03:00 zoster live 4 completed Not Available [facility] 08/27/2023 07:03:00 Past Encounters Encounter ID Performer Location Encounter Start Date Encounter Closed Date Diagnosis/Indication Diagnosis SNOMED-CT Code Diagnosis ICD10 Code Diagnosis Note [id number] Joe Cárdenas MD [facility]_[address] [address] 11/09/2020 00:00:00 11/10/2020 18:43:13 [id number] _ATHN_MIGR ATION_1 _ATHENA_M IGRATION_ DEFAULT_1 _1 , 01/03/2021 00:00:00 01/03/2021 15:41:39 [id number] [facility]_Histor ic_[facility] Kat Beard [address] [place] [address] 01/23/2021 00:00:00 01/23/2021 19:30:45 [id number] Joe Cárdenas MD [facility] [address] [place] [address] 03/05/2021 00:00:00 03/05/2021 11:47:09 [id number] Joe Cárdenas MD [facility] [address] [place] [address] 05/11/2021 00:00:00 05/11/2021 17:50:50 [id number] Joe Cárdenas MD [facility] [address] [place] [address] 06/19/2021 00:00:00 06/19/2021 19:33:00 [id number] [facility] [place] [address] [place] [address] 06/21/2021 00:00:00 06/21/2021 16:57:17 [id number] [facility] [facility] [place] [address] [place] [address] 07/23/2021 00:00:00 07/23/2021 13:47:23 [id number] Joe Cárdenas MD [facility] [address] [place] [address] 08/15/2021 00:00:00 08/15/2021 16:27:16 [id number] Joe Cárdenas MD [facility] [address] [place] [address] 09/07/2021 00:00:00 09/07/2021 12:57:10 [id number] Joe Cárdenas MD [facility] [address] [place] [address] 10/10/2021 00:00:00 10/10/2021 12:23:16 [id number] [facility] [place] [address] [place] [address] 11/07/2021 00:00:00 11/07/2021 16:01:42 [id number] Joe Cárdenas MD [facility] [place] [address] [place] [address] 11/14/2021 00:00:00 11/14/2021 15:15:31 [id number] Joe Cárdenas MD [facility] [place] [address] [place] [address] 01/17/2022 00:00:00 01/18/2022 17:48:51 [id number] [facility] [place] [address] [place] [address] 02/19/2022 00:00:00 02/19/2022 16:22:11 [id number] JANES Jean [facility] [place] [address] [place] [place] [address] 04/02/2022 00:00:00 04/02/2022 15:56:46 [id number] Joe Cárdenas MD [facility] [address] [place] [address] 06/06/2022 00:00:00 06/06/2022 17:39:31 [id number] Joe Cárdenas MD [facility] [address] [place] [address] 08/16/2022 00:00:00 08/16/2022 12:19:29 [id number] Joe Cárdenas MD [address] [address] 09/20/2022 00:00:00 09/20/2022 11:04:09 [id number] [facility] [place] [address] [place] [address] 10/01/2022 00:00:00 10/01/2022 15:54:32 [id number] Dayanna Hogan NP [address] [address] 11/28/2022 14:39:09 11/28/2022 15:53:35 Hemifacial spasm 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 Foreman and will be seeing Dr. Tyler at [facility] for movement disorder clinic.No change in current meds. [id number] Dayanna Hogan NP [address] [address] 01/17/2023 13:56:27 01/17/2023 16:20:21 Asthma [id number] J45.909 Albuterol HFA Hypothyroidism 45773774 E03.9 Levothyrox ine 150 mcg po daily. Hyperlipidemia 69765199 E78.5 low fat diet. Gastroesop hageal reflux disease 218919117 K21.9 stable Restless legs 60205934 G 25.81 ropinirole 0.25 mg po nightly. Depressive disorder 3548 9007 F32.9 Bupropion HCL SR 150 mg po bid.duloxe naren 60 mg po daily. Iron defic iency anemia 24426492 D50.9 ferrous sulfate 325 mg po daily. Allergic rhinitis 642479 04 J30.9 montelukas t 10 mgLoratadi ne 10 mg. Screening for malignant neoplasm of breast 212760830 Z12.39 mammogram ordered 01/17/23 Postmenopausal state 764 54125 Z78.0 Dexa ordered 01/17/23 [id number] Dayanna Hogan NP [address] [address] 08/15/2023 11:47:05 08/15/2023 16:16:52 Asthma [id number] J45.909 Albuterol HFA Hypothyroidism 70212199 E03.9 Levothyrox ine 125 mcg po daily to levothyrox ine 100 mcg po daily.TSh not existent. Reduced levothyrox ine. new dose sent. Labs in 8 weeks.Chol esterol controlled . 07/14/23 new orders due before refill. Currently on levothyrox ine 100 mcg po daily.07/04 11/24 TSh low. Reduce to levothyrox ine 88 mcg po daily. Hyperlipidemia 27185123 E78.5 low fat diet. Essential hypertension 29627105 I10 monitor prn Gastroesop hageal reflux disease 125891396 K21.9 stable Restless legs 17850896 G 25.81 ropinirole 0.25 mg po nightly. Depressive disorder 3548 9007 F32.9 Bupropion HCL SR 150 mg po bid. Try for bupropion HCL XL 300 mg po daily for cost savings.du loxetine 60 mg po daily. Iron defic iency anemia 61107100 D50.9 ferrous sulfate 325 mg po daily. Allergic rhinitis 590153 04 J30.9 montelukas t 10 mgLoratadi ne 10 mg. 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 Hypokalemia 44384166 E87 .6 Health Concerns Section Related Observation LastModified by Organization Detai ls LastModified Time None Recorded Concern Status LastModified by Organization Details LastModified Time None Recorded Advance Directives Directive N: Packet Payers Insurance Date Sequence Insurance Name Policy Number Policy Luna Covered Member ID Luna Member ID Guarantor Name 08/12/2023 1 [place] Alisa Gonzalez [id number] Alisa Gonzalez 08/18/2023 2 AARP (MEDICARE SUPPLEMENT) Alisa Gonzalez [id number] Alisa Gonzalez Notes Date Note Type Note [...] relief from legs being restless. [facility] notes not received previous were brought to office today and scanned into [employer]. Will be seeing sleep specialist Dr. Kumari December 23, 2022. Was seeing jennie chatterjee mortgage operations manager before but Dr. Foreman suggested a MD may give more options.Pt has RLS.Will be seeing movement specialist at [facility] Dr Tyler January 2023. Dayanna Hogan NP [address], [address], [place], [address], [employer] 11/28/2022 15:52:38 01/17/2023 text/html Here for check [...] out. On walker. Dayanna Hogan NP [address], [address], [place], [address], [place] 01/17/2023 16:06:43 08/15/2023 text/html Here for check u p. Asthma- stableThyroid- no complaintslipid- trying to eat well.htn- Home bp doing well.Gerd- stableRLS- still feeling daria all the time as well as whole body.Depression- Stable on cymbalta and bupropion. Clonazepam added (to help claustrophobia with CPAP), Oxcarbazepine (for trigeminal neuralgia), and upped dose of carbidopa/levodopa. Per neurology.Was seeing Dr. Foreman. Dayanna Hogan NP [address], [address], [place], [address], [place] 08/15/2023 17:01:26 OBGyn Episode No OBEpisode recorded.
--- OUTSIDE RECORDS SUMMARY | 2025-02-22 09:46 | XMS_ITS | Data Portability ---
Author Organization [facility] [place] Address [address] [place] [address] [place] [address] Care Team Providers Care Business Programmer Name Role Phone JOSUE HOGAN Primary Care Provider [phone] Assessment No assessment recorded. Plan of Treatment Reminders Order Date Submit Date Provider Last Modified By Organization Details Last Modified Time Details Appointments None recorded. Lab urinalysis, dipstick 2024 025 [address], [address], [place], [address], 17:49:05 culture, urine 2024 025 [facility] (Lab), [address] [facility], [place], [address], 22:24:58 Referral None recorded. Procedures None recorded. Surgeries None recorded. Imaging US, pelvis 2024 025 [email or web address], [address], [place], [address], 09:56:35 US, transvagina l 2024 025 [email or web address], [address], [place], [address], 09:56:35 US, transvagina l 2024 025 [email or web address], [address], [place], [address], 09:56:35 US, pelvis, complete 2024 025 [email or web address] Not available 13:13:54 Medication Orders None recorded. Patient TargetsNo targets [...] t Abnor mal: No Resul ting Lab: [facility] [address] [facility] [address] Tel: CULTU RE ----- ----- ----- --- No growt h in 1 day (dete ction level of 10,00 0 colon ies / ml.) Not Available [facility] (Lab) [address], [place], [address], 01/19/2025 22:24:58 01/19/20 25 01/18/2025 urina lysis , dipst ick Leukocytes +++ Not Available Helen berry [address], [place], [address], 01/18/2025 17:48:11 01/19/20 25 01/18/2025 urina lysis , dipst ick Nitrite - Not Available [place] [address], [place], [address], 01/18/2025 17:48:11 01/19/20 25 01/18/2025 urina lysis , dipst ick Urobilinogen Normal Not Available Tea patel [address], [place], [address], 01/18/2025 17:48:11 01/19/20 25 01/18/2025 urina lysis , dipst ick Protein + Not Available [place] [address], [place], [address], 01/18/2025 17:48:11 01/19/20 25 01/18/2025 urina lysis , dipst ick pH 5 Not Available [place] [address], [place], [address], 01/18/2025 17:48:11 01/19/20 25 01/18/2025 urina lysis , dipst ick Specific Browning 1.030 Not Available [facility] [address], [place], [address], 01/18/2025 17:48:11 01/19/20 25 01/18/2025 urina lysis , dipst ick Ketone + Not Available [place] [address], [place], [address], 01/18/2025 17:48:11 01/19/20 25 01/18/2025 urina lysis , dipst ick Bilirubin - Not Available [facility] [address], [place], [address], 01/18/2025 17:48:11 01/19/20 25 01/18/2025 urina lysis , dipst ick Glucose Normal Not Available [place] [address], [place], [address], 01/18/2025 17:48:11 01/19/20 25 01/18/2025 urina lysis , dipst ick Appearance cloudy [facility] Available [facility] [address], [place], [address], 01/18/2025 17:48:11 01/19/20 25 01/18/2025 urina lysis , dipst ick Color yellow Not Available [place] [address], [place], [address], 01/18/2025 17:48:11 01/26/20 25 01/25/2025 US, pelvi s No observ ation record ed. [email or web address] [place] [address], [place], [address], 01/25/2025 17:38:49 01/26/20 25 01/25/2025 US, trans vagin al No observ ation record ed. [email or web address] [place] [address], [place], [address], 01/25/2025 17:39:01 01/26/20 25 01/25/2025 US, trans vagin al No observ ation record ed. [email or web address] [place] [address], [place], [address], 01/25/2025 17:39:12 01/26/20 25 01/25/2025 US, pelvi s No observ ation record ed. [email or web address], [place], [address], 01/27/2025 18:04:18 Result Notes None recorded. 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, high risk on cervical specimen 811225207 Active 2017 Cervical high risk HPV DNA test positive;P christiano ID: 0001 Not Available [facility] 0 16:04:35 Evaluatio n finding Active 2017 Unsp abnormal cytolog findings in specmn from cervix uteri;Prac thanh ID: 0001 Not Available [facility] 0 16:04:35 Tinea corporis 51466168 Active 2017 Tinea corporis;R ecorded Elsewhere: No Locatio n: [facility] Lillie rce: EHR Chroni c: N Practice ID: 0001 Billa ble Time: 01:00:00 PM Not Available [facility] 0 16:04:[address] Concept Active 2018 Encntr for general adult medical exam w/o abnormal findings;P sivakumartice ID: 0001 Not Available [facility] 0 16:04:35 At risk - finding 858674667 Active 2018 Oth personal risk factors, not elsewhere classified ;Practice ID: 0001 Not Available [facility] 0 16:04:35 Screening for malignant neoplasm of rectum Active 2018 Encounter for screening for malignant neoplasm of rectum;Pra ctice ID: 0001 Not Available [facility] 0 16:04:[address] Concept Active 2018 Well woman check w/o abnormal finding;Re corded Elsewhere: No Locatio n: [facility] rce: EHR Chroni c: N Practice ID: 0001 Billa ble Time: 02:30:00 PM Not Available [facility] 0 16:04:36 Screening for malignant neoplasm of cervix Active 2018 Encounter for screening for malignant neoplasm of cervix;Rec orded Elsewhere: No Locatio n: [facility] rce: EHR Chroni c: N Practice ID: 0001 Billa ble Time: 02:30:00 PM Not Available [facility] 0 16:04:36 Problem Notes None recorded. Procedures Surgical History Date Name Laterality Status Provider Name and Address Organization Details Recorded Time 2 repair of ankle completed [facility] 01/18/2025 16:38:13 4 replacement of bilateral knee joints completed [facility] 01/18/2025 16:37:16 4 salpingo-oophor ectomy completed [facility] 01/18/2025 16:35:53 4 endometrial ablation completed [facility] 01/18/2025 16:36:06 4 section completed [facility] 01/18/2025 16:35:12 spinal arthrodesis completed [facility] 01/18/2025 16:37:47 Imaging Results None recorded. Procedure Notes None recorded. Medical Equipment None Reported. Allergies Allergen ID Allergen Name Allergen Category Reaction Reaction Severity Criticality Documentation Date Start Date Code Code System Note Provider Name and Address Organization Details Recorded Time 88057 pregabali n medicatio n Not available Not available Not available 07/21/2020 03130 2 RxNorm Comme nt: [facility] Agent : Zofia a; Not Available [facility] 0 14:20:49 12898 Ativan medicatio n Not available Not available Not available 01/18/202503691 [address] [facility] 5 16:18:40 23576 adhesive tape environme nt,medica tion Not available Not available Not available 01/18/[address] [facility] 5 16:18:47 Medications Name Sig Start Date Stop Date Status Note LastModified by Organization Details LastModified Time losartan 50 mg tablet TAKE 1 TABLET BY MOUTH EVERY DAY active Not Available Not Available No t Available pramipexo le 1 mg tablet take 1 tablet by oral route 3 times every day active Prescrib ed Elsewher e: Yes Loca tion: [facility] M odify By: gilberto Braxton ncounter [...] Elsewher e: Yes Loca tion: Ervin braxton [facility] odify By: gilberto nj DateTime : 01/06/20 18 01:00:00 PM Not Available Not Available Not Available nystatin 100,000 unit/gram topical ointment apply by topical route 2 times every day to the affected area(s) 01/18 completed Prescrib ed Elsewher e: Yes Loca tion: Ervin braxton [facility] odify By: gilberto Braxton ncounter DateTime : 01/06/20 18 01:00:00 PM Not Available Not Available Not Available benzonata te 200 mg capsule take 1 capsule by oral route 3 times every day as needed for cough 02/11 completed Prescrib ed Elsewher e: Yes Loca tion: Ervin braxton [facility] odify By: remi langleyuntjaqui DateTime : 01/06/20 18 01:00:00 PM Not Available Not Available Not Available sulfameth oxazole 400 mg-trimet hoprim 80 mg tablet take 2 tablet by oral route every 12 hours 08/11 completed Prescrib ed Elsewher e: Yes Loca tion: Ervin braxton [facility] odify By: rosalie nj DateTime : 01/06/20 18 01:00:00 PM Not Available Not Available Not Available carbidopa 25 mg-levodo pa 250 mg tablet take 1 tablet by oral route 3 times every day active Prescrib ed Elsewher e: Yes Loca tion: Ervin braxton [facility] odify By: gilberto langleyuntjaqui DateTime : 01/06/20 18 01:00:00 PM Not Available Not Available Not Available meloxicam 15 mg tablet take 1 tablet by oral route every day 02/11 completed Prescrib ed Elsewher e: Yes Loca tion: Ervin braxton [facility] odify By: amcitlaly langleyuntjaqui DateTime : 01/06/20 18 01:00:00 PM [...] Elsewher e: Yes Loca tion: Ervin braxton [facility] odify By: gilberto nj DateTime : 01/06/20 18 01:00:00 PM Not Available Not Available Not Available Klor-Con 20 mEq oral packet take 1 packet by oral route 4 times every day dissolve d in 4-6 ounces of cold water or juice active Prescrib ed Elsewher e: Yes [facility] By: gilberto nj DateTime : [...] e: Yes Loca tion: Juan C fox [facility] odify By: gilberto nj DateTime : 01/06/20 18 01:00:00 PM Not Available Not Available Not Available ranitidin e 25 mg/mL injection solution infuse by intraven ous route every 8 hours over 01/18 completed Prescrib ed Elsewher e: Yes Loca tion: Juan C fox [facility] odify By: gilberto nj DateTime : 01/06/20 18 01:00:00 PM Not Available Not Available Not Available levothyro xine 100 mcg tablet TAKE 1 TABLET BY MOUTH EVERY DAY 01/18 completed Not Available Not Available Not Available bupropion HCl 100 mg tablet take 1 tablet by oral route 2 times every day 01/18 completed Prescrib ed Elsewher e: Yes [facility] By: gilberto nj DateTime : [...] Elsewher e: Yes Loca tion: Ervin braxton [facility] odify By: gilberto nj DateTime : 01/06/20 18 01:00:00 PM Not Available Not Available Not Available dicyclomi ne 20 mg tablet TAKE 1 TABLET BY MOUTH TWICE A DAY 01/18 completed Not Available Not Available Not Available Vitamin C oral powder active Prescrib ed Elsewher e: Yes [facility] By: gilberto nj DateTime : [...] ed Elsewher e: Yes [facility] By: gilberto nj DateTime : 01/06/20 18 01:00:00 PM Not Available Not Available Not Available amoxicill in 250 mg capsule take 2 capsule by oral route 4 times every day 01/18 completed Prescrib ed Elsewher e: Yes Loca tion: Juan C fox [facility] odify By: gilberto nj DateTime : [...] Elsewher e: Yes Loca tion: Ervin braxton [facility] odify By: gilberto langleyunter DateTime : [...] Elsewher e: No Locat ion: Ervin braxton [facility] odify By: ruth tz Encou nter DateTime [...] Elsewher e: Yes Loca tion: Ervin braxton [facility] odify By: gilberto garridoer DateTime : 01/06/20 18 01:00:00 PM Not Available Not Available Not Available magnesium 30 mg tablet active Prescrib ed Elsewher e: Yes Loca tion: Ervin [facility] odify By: gilberto garridoer DateTime : 01/06/20 18 01:00:00 PM Not Available Not Available Not Available metronida zole 0.75 % topical gel apply by topical route 2 times every day a thin layer to the affected area(s) in the morning and evening 08/11 completed Prescrib ed Elsewher e: Yes Loca tion: Ervin braxton [facility] odify By: rosalie nj DateTime : 01/06/20 [...] Elsewher e: Yes Loca tion: Ervin braxton [facility] odify By: gilberto langleyjaqui DateTime : 01/06/20 18 01:00:00 PM Not [...] Elsewher e: Yes Loca tion: Ervin braxton [facility] odify By: gilberto nj DateTime : 01/06/20 18 01:00:00 PM Not Available Not Available Not Available Super B Complex + C 150 mg tablet active Prescrib ed Elsewher e: Yes Loca tion: Ervin braxton [facility] odify By: gilberto nj DateTime : 01/06/20 18 01:00:00 PM Not Available Not Available Not Available Fish Oil 300 mg-1,000 mg capsule active Prescrib ed Elsewher e: Yes Loca tion: Ervin braxton [facility] odify By: gilberto langleyjaqui DateTime : 01/06/20 18 01:00:00 PM Not Available Not Available Not Available Calcium 600 + D(3) 600 mg-5 mcg (200 unit) capsule 01/18 completed Prescrib ed Elsewher e: Yes Loca tion: Ervin braxton [facility] odify By: gilberto jn DateTime : 01/06/20 18 01:00:00 PM Not Available Not Available Not Available Vitamin D3 125 mcg (5,000 unit) tablet active Prescrib ed Elsewher e: Yes Loca tion: Juan C fox [facility] odify By: gilberto langleyunter DateTime : 01/06/20 18 01:00:00 PM Not Available Not Available Not Available Hair,Skin ,Nails with Biotin 7.5 mg-7.5 unit-1,25 0 mcg chewable tablet active Prescrib ed Elsewher e: Yes Loca tion: Juan C fox [facility] odify By: gilberto garridoer DateTime : 01/06/20 18 01:00:00 PM Not Available Not Available Not Available fluticaso ne propionat e, micronize d (bulk) 100 % powder 01/18 completed Prescrib ed Elsewher e: Yes Loca tion: uJan C fox [facility] odify By: gilberto nj DateTime : 01/06/20 18 01:00:00 PM Not Available Not Available Not Available Probiotic 15 billion cell capsule active Prescrib ed Elsewher e: Yes [facility] By: gilberto nj DateTime : 01/06/20 18 01:00:00 PM Not Available Not Available Not Available Vitals Date Recorded Body height Body mass index (BMI) Body weight Systolic And Diastolic Provider Name and Address Organization Details Last Updated DateTime 01/18/2025 147.32 cm 38.3 kg/m2 09545.84 g 117/84 mm[Hg] Gissel Valencia [facility] 01/18/2025 16:18:21 Social History Question Answer Notes LastModified by Organizat ion Details LastModified Time Tobacco Smoking Status Never Smoker Gissel lowe [facility] 01/18/2025 16:34:52 In The 14 Days Before Symptom Onset, Have You Had Close Contact With A Laboratory-confirm ed COVID-19 While That Case Was Ill? No Information n ot available 01/18/2025 In The 14 Days Before Symptom Onset, Have You Had Close Contact With A Person Who Is Under Investigation For COVID-19 While That Person Was Ill? No [email or web address] Information not available 01/18/2025 Have You Been To An Area Known To Be High Risk For COVID-19? No [email or web address] Information not available 01/18/2025 Sex: Unknown Functional Status None recorded. Mental Status None recorded. Family History Relationship Description Onset Age of this Age Resolved Age Notes LastModified by Organization Details LastModified Time Mother Malignant tumor of breast [email or web address] Not available 2024 16:33:21 Mother Disorder of thyroid gland [email or web address] Not available 2024 16:34:39 Paternal Grandmother Malignant tumor of colon [email or web address] Not available 2024 16:33:48 Paternal Grandfather Malignant tumor of colon [email or web address] Not available 2024 16:33:48 Sister Muscular dystrophy Not available 2024 16:34:25 Notes:Father: Infertility Ma ternal aunt: Cancer, breast Mother: Infertility, Thyroid disease, Cancer, breast Paternal grandfather: Cancer, colon Paternal grandmother: Cancer, colon Sister: Genetic disease, Infertility Medical History Condition Response Allergies (Food, seasonal, environmental ) N Other N Breast Cancer N Drug/Latex Allergies/Reactions Y Blood Transfusion N Lung Disease N Dermatologic Disorders N Defects or Inherited Disease N Breast Problem N Gestational Diabetes N Hematologic disorders N Anesthesia Complications N History of STI Y Deep Vein Thrombosis N Polycystic ovary syndrome N Anxiety Disorder Y Autoimmune disease N Arthritis N Polyps N Infertility N History of abnormal pap N Acid Reflux (GERD) Y Cancer N Varicosities N Stroke N Neurologic/Epilepsy N Endometriosis N High Cholesterol N Fibromyalgia N Headaches N Kidney Disease N Heart Problems N [...] SNOMED-CT Code Diagnosis ICD10 Code Diagnosis Note [id number] CARI PringleRENEA [place] [address] [address] 01/18/2025 15:48:34 01/19/2025 10:07:18 Pain in pelvis 95814455 R10.2 Detailed health hx obtained and reviewed todayUA done, urine cx sentwe agreed to update pelvic u/swill reach out to pt with results when availablee ncouraged continued PCP/GI fu as well Time spent in visit is a total of 25 mins with at least 50% of visit consisting of counseling and review of plan of care. Right lowe r quadrant pain 160113734 R10.31 [id number] Jesus Pond MD [place] [address] [address] 01/25/2025 14:42:21 01/25/2025 15:18:43 Pain in pelvis 75805728 R10.2 Health Concerns Section Related Observation LastModified by Organization Detai ls LastModified Time None Recorded Concern Status LastModified by Organization Details LastModified Time None Recorded Advance Directives Directive None Recorded Payers Insurance Date Sequence Insurance Name Policy Number Policy Luna Covered Member ID Luna Member ID Guarantor Name 01/22/2025 2 [employer] (MEDICARE SUPPLEMENT) Heather Pipes [id number] Heather Pipes 01/20/2025 1 [place] Heather M Pipes [id number] Heather Pipes Notes Date Note Type Note [...] any pain. NOEMY Pringle [address], [place], [address], [facility] 01/19/2025 08:51:16 OBGyn Episode Ob Episode Information Episode Created Date Number of Fetuses Patient Bloodtype Patient rh Status Prepregnancy Weight lbs Domestic Partner Domestic Partner Phone Father Name Aircraft Maintenance Supervisor Status 01/19/20 25 1 CLOSED Fetus Data First Name Last Name Admitted to NICU Weight (g) Sex Living Outcome Pediatric Complications Fetus ID Race Codes Race Delivery Type 2976.47 0704 F Full Term [id number] Vaginal Delivery Bernard Calculation Initial Bernard Date [...] Domestic Partner Domestic Partner Phone Father Name Aircraft Maintenance Supervisor Status 01/19/20 25 1 CLOSED Fetus Data First Name Last Name Admitted to NICU Weight (g) Sex Living Outcome Pediatric Complications Fetus ID Race Codes Race Delivery Type , Spontane ous [id number] Bernard Calculation Initial Bernard Date Initial Exam [...] Domestic Partner Domestic Partner Phone Father Name Aircraft Maintenance Supervisor Status 01/19/20 25 1 CLOSED Fetus Data First Name Last Name Admitted to NICU Weight (g) Sex Living Outcome Pediatric Complications Fetus ID Race Codes Race Delivery Type 3458.63 9 F Full Term [id number] Primary Bernard Calculation Initial Bernard Date Initial [...]
--- OUTSIDE RECORDS SUMMARY | 2025-02-22 09:46 | XMS_ITS | Encounter Summary ---
Author Organization [facility] Address [address] [place] [address] Care Team Providers Care Informatics Physician Name Role Phone Dayanna Aj Adam DE LUNAN-TIRE SERVICE TECHNICIAN Primary Care Provider Reason for Visit * Reason Onset Date Comments Medication Problem 01/01/2025 Encounter Details Date Type Department Care Team (Late st Contact Info) Description 01/01/2025 Telephone [facility] - Neurology [address], [place] [address] Saima Villa MD [address] [place], [place] [id number] Medication Problem Social History Tobacco Use Types [...] Saima Villa M.D. Neurology Resident PGY2 [facility] documented in this encounter Plan of Treatment Upcoming Encounters Date Type Department Care Team (Late st Contact Info) Description 05/23/2025 2:00 PM CDT Office Visit [facility] [address] [place] [address] Katie Augustin APRN-CNP [address] [place] [address] documented as of this encounter Goals Goal [...] disorder documented in this encounter Care Teams Informatics Physician Relationship Specialty Start Date End Date Dayanna Aj APRN-ARIEL [address] [place] [address] PCP - General Nurse Practitioner Family 10/08/23 documented as of this encounter
--- OUTSIDE RECORDS SUMMARY | 2025-02-22 09:47 | XMS_ITS | Patient Health Record ---
Author Organization [facility] Address [address] [place], [place] [address] Care Team Providers Care Ultrasound Technologist Sonographer Name Role Phone JM FAIRCHILD Unavailable [phone] Dayanna Aj Unavailable Unavailable Allergies Allergen (clinical [...] Location Date Provider Diagnosis [facility] [address] [place], [place] [id number] 07/15/2024 JM FAIRCHILD Sprain of anterior talofibular [...] Date Coverage End Date Medicare Part B [place] [address] [place] [address] [id number] Gayla Heather Self - patient is the insured [address] [facility] Medicare Supplement [address] [place], [place] [phone] [id number] Gayla Heather Self - patient is the [...]
[2025-02-22 10:44] LABS: Hematocrit 40.5 % (37.0-47.0); Hemoglobin 13.0 g/dL (12.0-15.0); Immature Granulocyte Percent A 0.6 % (0-0.5); Lymphocytes Absolute Auto 1.90 K/mm3 (0.9-3.2); Mean Corpuscular HGB Conc 32.1 g/dl (32-36); Mean Corpuscular Hemoglobin 31.7 pg (26-34); Mean Corpuscular Volume 98.8 fl (80-100); Nucleated Red Blood Cells Absolute Auto 0.000 K/mm3 (0.0-0.012); Nucleated Red Blood Cells Perc 0.0 % (0.0-0.2); Platelet Count Result 361 k/mm3 (150-375); Red Blood Count 4.10 M/mm3 (4.2-5.4); White Blood Count 8.6 K/mm3 (4.5-10.0)
[2025-02-22 11:01] LABS: Albumin Level 4.3 g/dL (3.5-5.1)
[2025-02-22 11:13] LABS: Hemoglobin A1C 5.5 % (<5.7)
== END 2025-02-22 09:38 | disposition home or self-care (01) ==
PROVIDERS: PCP Nurse Practitioner Family
DX: M96.0 Pseudarthrosis after fusion or arthrodesis (principal); Z01.818 Encounter for other preprocedural examination; M60.871 Other myositis, right ankle and foot; M85.871 Other specified disorders of bone density and structure, right ankle and foot; Z13.1 Encounter for screening for diabetes mellitus; Z13.21 Encounter for screening for nutritional disorder
CPT/HCPCS: 36415; 82040; 82306; 83036; 85025

== ENCOUNTER 2025-04-29 14:38 | Outpatient (CLI) | payer MEDICARE, SELFPAY ==
--- NOTE | ~2025-04-29 | CT_ITS ---
EXAMINATION: CT lumbar spine wo con DATE: 04/29/2025 14:58 INDICATION: Postlaminectomy. TECHNIQUE: Computed tomography (CT) of the lumbar spine was performed without intravenous contrast. Automated exposure control and iterative reconstruction technique were employed. The dose-length product was 962.50 mGy-cm. COMPARISON: None FINDINGS: There is 6 degrees levocurvature of the lumbar spine. There is 4 mm anterolisthesis of L4 on L5. There is mild chronic anterior wedging of T12 vertebral body. There are changes of anterior fusion procedures at L4-L5 and L5- S1 with interbody devices. There are changes of posterior fusion procedure at L4-L5 with pedicle screws. There is moderately decreased disc height at L1-L2, severely decreased disc height at L2-L3, and moderately decreased disc height at L3-L4. 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 Partially visualized are epidural electrodes. The following disc levels are specifically discussed: L1-L2: The disc is bulging. There is moderate bilateral facet joint osteoarthritis. There is mild bilateral neural foraminal stenosis. There is mild central canal stenosis. L2-L3: The disc is bulging. There is moderate bilateral facet joint osteoarthritis. There is mild bilateral neural foraminal stenosis. There is mild central canal stenosis. L3-L4: The disc is bulging. There is severe bilateral facet joint osteoarthritis. There is mild bilateral neural foraminal stenosis. There is moderate central canal stenosis. L4-L5: There is mild bilateral facet joint hypertrophy. There is mild bilateral neural foraminal stenosis. There is no central canal stenosis. L5-S1: There is moderate bilateral facet joint hypertrophy. There is mild bilateral neural foraminal stenosis. There is no central canal stenosis. IMPRESSION: 1. Severe lumbar spondylosis. 2. Anterior fusion procedures at L4-L5 and L5-S1. 3. Posterior fusion procedure at L4-L5. Reviewed, dictated and finalized at location E.
--- OUTSIDE RECORDS SUMMARY | 2025-04-29 14:46 | XMS_ITS | Clinical Summary ---
Author Organization [facility] Address [address] [place] [address] Care Team Providers Care Smooth Plater Name Role Phone Juana Nguyen MD Primary Care Provider + [phone] Allergies Active Allergy Reactions Criticality Noted Date [...] Oral q hs, Route to Pharmacy Electronically, [facility]/pharmacy #[id number], 150, 09/27/21 13:13:00 TAVERN KEEPER, Height/Length Dosing, cm, 97.8, 09/25/21 18:28:00 TAVERN KEEPER, Weight Dosing, kg 2 Active omeprazole 40 [...] virus vaccine, PF, 0.5 ML injection Afluria 0711-5992(PF) 45 mcg (15 mcg x 3)/0.5 mL [...] mg tablet Active vitamin D2, ergocalciferol , 66060 UNITS capsule Take 50,000 Units by mouth [...] Tdap) 10/01/2021 10/02/2011 COVID-19 Vaccine (4 - 2024-2 6 season) 2025 05/03/2021, 10/10/2020, 09/19/2020 RSV Immunization or 60+ [...] age to complete this topic Insurance MEDICARE [facility] Care Teams Smooth Plater Relationship Specialty Start Date End Date Juana Nguyen MD [address] [place], [place] [address] PCP - General 06/26/14
--- OUTSIDE RECORDS SUMMARY | 2025-04-29 14:46 | XMS_ITS | Data Portability ---
Author Organization [facility] [place] Address [address] [place] [address] [place] [address] Care Team Providers Care Claims Adjudicator Name Role Phone JOSUE HOGAN Primary Care Provider Assessment No assessment recorded. Plan of Treatment Reminders Order Date Submit Date Provider Last Modified By Organization Details Last Modified Time Details Appointments None recorded. Lab urinalysis, dipstick 2024 025 [address], [address], [place], [address], 17:49:05 culture, urine 2024 025 [facility] (Lab), [address] [facility], [place], [address], 22:24:58 Referral None recorded. Procedures None recorded. Surgeries None recorded. Imaging US, pelvis 2024 025 [email or web address], [address], [place], [address], 09:56:35 US, transvagina l 2024 025 [email or web address], [address], [place], [address], 09:56:35 US, transvagina l 2024 025 [email or web address], [address], [place], [address], 09:56:35 US, pelvis, complete 2024 025 [email or web address] Not available 13:13:54 Medication Orders None recorded. [...] t Abnor mal: No Resul ting Lab: [facility] [address] [facility] [address] Tel: CULTU RE ----- ----- ----- --- No growt h in 1 day (dete ction level of 10,00 0 colon ies / ml.) Not Available [facility] (Lab) [address], [place], [address], 01/19/2025 22:24:58 01/19/20 25 01/18/2025 urina lysis , dipst ick Leukocytes +++ Not Available Helen berry [address], [place], [address], 01/18/2025 17:48:11 01/19/20 25 01/18/2025 urina lysis , dipst ick Nitrite - Not Available [place] [address], [place], [address], 01/18/2025 17:48:11 01/19/20 25 01/18/2025 urina lysis , dipst ick Urobilinogen Normal Not Available Tea patel [address], [place], [address], 01/18/2025 17:48:11 01/19/20 25 01/18/2025 urina lysis , dipst ick Protein + Not Available [place] [address], [place], [address], 01/18/2025 17:48:11 01/19/20 25 01/18/2025 urina lysis , dipst ick pH 5 Not Available [place] [address], [place], [address], 01/18/2025 17:48:11 01/19/20 25 01/18/2025 urina lysis , dipst ick Specific [place] 1.030 Not Available [facility] [address], [place], [address], 01/18/2025 17:48:11 01/19/20 25 01/18/2025 urina lysis , dipst ick Ketone + Not Available [place] [address], [place], [address], 01/18/2025 17:48:11 01/19/20 25 01/18/2025 urina lysis , dipst ick Bilirubin - Not Available [facility] [address], [place], [address], 01/18/2025 17:48:11 01/19/20 25 01/18/2025 urina lysis , dipst ick Glucose Normal Not Available [place] [address], [place], [address], 01/18/2025 17:48:11 01/19/20 25 01/18/2025 urina lysis , dipst ick Appearance cloudy Not Available [facility] [address], [place], [address], 01/18/2025 17:48:11 01/19/20 25 01/18/2025 urina lysis , dipst ick Color yellow Not Available [place] [address], [place], [address], 01/18/2025 17:48:11 01/26/20 25 01/25/2025 US, pelvi s No observ ation record ed. [email or web address] [place] [address], [place], [address], 01/25/2025 17:38:49 01/26/20 25 01/25/2025 US, trans vagin al No observ ation record ed. [email or web address] [place] [address], [place], [address], 01/25/2025 17:39:01 01/26/20 25 01/25/2025 US, trans vagin al No observ ation record ed. [email or web address] [place] [address], [place], [address], 01/25/2025 17:39:12 01/26/20 25 01/25/2025 US, pelvi s No observ ation record ed. [email or web address] [address], [place], [address], 01/27/2025 18:04:18 Result Notes None recorded. 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, high risk on cervical specimen 649668997 Active 2017 Cervical high risk HPV DNA test positive;P christiano ID: 0001 Not Available [facility] 0 16:04:35 Evaluatio n finding Active 2017 Unsp abnormal cytolog findings in specmn from cervix uteri;Prac thanh ID: 0001 Not Available [facility] 0 16:04:35 Tinea corporis 36824016 Active 2017 Tinea corporis;R ecorded Elsewhere: No Locatio n: [facility] rce: EHR Chroni c: N Practice ID: 0001 Billa ble Time: 01:00:00 PM Not Available [facility] 0 16:04:[address] Concept Active 2018 Encntr for general adult medical exam w/o abnormal findings;P sivakumartice ID: 0001 Not Available [facility] 0 16:04:35 At risk - finding 817860063 Active 2018 Oth personal risk factors, not elsewhere classified ;Practice ID: 0001 Not Available [facility] 0 16:04:35 Screening for malignant neoplasm of rectum Active 2018 Encounter for screening for malignant neoplasm of rectum;Pra ctice ID: 0001 Not Available [facility] [address] 16:04:[address] Concept Active 2018 Well woman check w/o abnormal finding;Re corded Elsewhere: No Locatio n: [facility] rce: EHR Chroni c: N Practice ID: 0001 Billa ble Time: 02:30:00 PM Not Available [facility] 0 16:04:36 Screening for malignant neoplasm of cervix Active 2018 Encounter for screening for malignant neoplasm of cervix;Rec orded Elsewhere: No Locatio n: [facility] rce: EHR Chroni c: N Practice ID: 0001 Billa ble Time: 02:30:00 PM Not Available [facility] 0 16:04:36 Problem Notes None recorded. Procedures Surgical History Date Name Laterality Status Provider Name and Address Organization Details Recorded Time 2 repair of ankle completed [facility] 01/18/2025 16:38:13 4 replacement of bilateral knee joints completed [facility] 01/18/2025 16:37:16 4 salpingo-oophor ectomy completed [facility] 01/18/2025 16:35:53 4 endometrial ablation completed [facility] 01/18/2025 16:36:06 4 section completed [facility] 01/18/2025 16:35:12 spinal arthrodesis completed [facility] 01/18/2025 16:37:47 Imaging Results None recorded. Procedure Notes None recorded. Medical Equipment None Reported. Allergies Allergen ID Allergen Name Allergen Category Reaction Reaction Severity Criticality Documentation Date Start Date Code Code System Note Provider Name and Address Organization Details Recorded Time 29750 pregabali n medicatio n Not available Not available Not available 07/21/2020 29697 2 RxNorm Comme nt: [facility] Agent : Zofia a; Not Available [facility] 0 14:20:49 89583 Ativan medicatio n Not available Not available Not available 01/18/202584438 [address] [facility] 5 16:18:40 64511 adhesive tape environme nt,medica tion Not available Not available Not available 01/18/2025 [facility] 16:18:47 Medications Name Sig Start Date Stop Date Status Note LastModified by Organization Details LastModified Time losartan 50 mg tablet TAKE 1 TABLET BY MOUTH EVERY DAY active Not Available Not Available No t Available pramipexo le 1 mg tablet take 1 tablet by oral route 3 times every day active Prescrib ed Elsewher e: Yes [facility] By: gilberto Braxton ncounter [...] Elsewher e: Yes Loca tion: Ervin braxton [facility] odify By: gilberto langleyuntjaqui DateTime : 01/06/20 18 01:00:00 PM Not Available Not Available Not Available nystatin 100,000 unit/gram topical ointment apply by topical route 2 times every day to the affected area(s) 01/18 completed Prescrib ed Elsewher e: Yes Loca tion: Ervin braxton [facility] odify By: gilberto Brxaton ncounter DateTime : 01/06/20 18 01:00:00 PM Not Available Not Available Not Available benzonata te 200 mg capsule take 1 capsule by oral route 3 times every day as needed for cough 02/11 completed Prescrib ed Elsewher e: Yes Loca tion: Ervin braxton [facility] odify By: remi langleyuntjaqui DateTime : 01/06/20 18 01:00:00 PM Not Available Not Available Not Available sulfameth oxazole 400 mg-trimet hoprim 80 mg tablet take 2 tablet by oral route every 12 hours 08/11 completed Prescrib ed Elsewher e: Yes Loca tion: Ervin braxton [facility] odify By: rosalie langleyuntjaqui DateTime : 01/06/20 18 01:00:00 PM Not Available Not Available Not Available carbidopa 25 mg-levodo pa 250 mg tablet take 1 tablet by oral route 3 times every day active Prescrib ed Elsewher e: Yes Loca tion: Ervin braxton [facility] odify By: gilberto langleyuntjaqui DateTime : 01/06/20 18 01:00:00 PM Not Available Not Available Not Available meloxicam 15 mg tablet take 1 tablet by oral route every day 02/11 completed Prescrib ed Elsewher e: Yes Loca tion: Ervin braxton [facility] odify By: remi langleyuntjaqui DateTime : [...] Elsewher e: Yes Loca tion: Ervin braxton [facility] odify By: gilberto nj DateTime : 01/06/20 18 01:00:00 PM Not Available Not Available Not Available Klor-Con 20 mEq oral packet take 1 packet by oral route 4 times every day dissolve d in 4-6 ounces of cold water or juice active Prescrib ed Elsewher e: Yes Loca tion: Ervin braxton [facility] odify By: gilberto nj DateTime : [...] Elsewher e: Yes Loca tion: Ervin braxton [facility] odify By: gilberto nj DateTime : 01/06/20 18 01:00:00 PM Not Available Not Available Not Available ranitidin e 25 mg/mL injection solution infuse by intraven ous route every 8 hours over 01/18 completed Prescrib ed Elsewher e: Yes Loca tion: Ervin braxton [facility] odify By: gilberto nj DateTime : 01/06/20 18 01:00:00 PM Not Available Not Available Not Available levothyro xine 100 mcg tablet TAKE 1 TABLET BY MOUTH EVERY DAY 01/18 completed Not Available Not Available Not Available bupropion HCl 100 mg tablet take 1 tablet by oral route 2 times every day 01/18 completed Prescrib ed Elsewher e: Yes Loca tion: Nelasalmavel braxton [facility] odify By: gilberto nj DateTime : [...] Elsewher e: Yes Loca tion: Ervin braxton [facility] odify By: gilberto nj DateTime : 01/06/20 18 01:00:00 PM Not Available Not Available Not Available dicyclomi ne 20 mg tablet TAKE 1 TABLET BY MOUTH TWICE A DAY 01/18 completed Not Available Not Available Not Available Vitamin C oral powder active Prescrib ed Elsewher e: Yes Loca tion: Ervin [facility] odify By: gilberto nj DateTime : 01/06/20 [...] Elsewher e: Yes Loca tion: Ervin braxton [facility] odify By: gilberto nj DateTime : 01/06/20 18 01:00:00 PM Not Available Not Available Not Available amoxicill in 250 mg capsule take 2 capsule by oral route 4 times every day 01/18 completed Prescrib ed Elsewher e: Yes Loca tion: Nelasalmavel braxton [facility] odify By: gilberto nj DateTime : [...] Elsewher e: Yes Loca tion: Ervin braxton [facility] odify By: gilberto Braxton ncounter DateTime [...] Elsewher e: No Locat ion: Ervin braxton [facility] odify By: ruth tz Encou nter [...] Elsewher e: Yes Loca tion: Ervin braxton [facility] odify By: gilberto langleyunter DateTime : 01/06/20 18 01:00:00 PM Not Available Not Available Not Available magnesium 30 mg tablet active Prescrib ed Elsewher e: Yes Loca tion: Ervin braxton [facility] odify By: gilberto langleyunter DateTime : 01/06/20 18 01:00:00 PM Not Available Not Available Not Available metronida zole 0.75 % topical gel apply by topical route 2 times every day a thin layer to the affected area(s) in the morning and evening 08/11 completed Prescrib ed Elsewher e: Yes Loca tion: Juan Cvel braxton [facility] odify By: rosalie nj DateTime : [...] Elsewher e: Yes Loca tion: Ervin braxton [facility] odify By: gilberto nj DateTime : [...] Elsewher e: Yes Loca tion: Ervin braxton [facility] odify By: gilberto nj DateTime : 01/06/20 18 01:00:00 PM Not Available Not Available Not Available Super B Complex + C 150 mg tablet active Prescrib ed Elsewher e: Yes Loca tion: Ervin braxton [facility] odify By: gilberto nj DateTime : 01/06/20 18 01:00:00 PM Not Available Not Available Not Available Fish Oil 300 mg-1,000 mg capsule active Prescrib ed Elsewher e: Yes Loca tion: Ervin braxton [facility] odify By: gilberto nj DateTime : 01/06/20 18 01:00:00 PM Not Available Not Available Not Available Calcium 600 + D(3) 600 mg-5 mcg (200 unit) capsule 01/18 completed Prescrib ed Elsewher e: Yes Loca tion: Ervin braxton [facility] odify By: gilberto garridoer DateTime : 01/06/20 18 01:00:00 PM Not Available Not Available Not Available Vitamin D3 125 mcg (5,000 unit) tablet active Prescrib ed Elsewher e: Yes Loca tion: Ervin braxton [facility] odify By: gilberto langleyunter DateTime : 01/06/20 18 01:00:00 PM Not Available Not Available Not Available Hair,Skin ,Nails with Biotin 7.5 mg-7.5 unit-1,25 0 mcg chewable tablet active Prescrib ed Elsewher e: Yes Loca tion: Ervin braxton [facility] odify By: gilberto langleyunter DateTime : 01/06/20 18 01:00:00 PM Not Available Not Available Not Available fluticaso ne propionat e, micronize d (bulk) 100 % powder 01/18 completed Prescrib ed Elsewher e: Yes Loca tion: Ervin braxton [facility] odify By: gilberto langleyunter DateTime : 01/06/20 18 01:00:00 PM Not Available Not Available Not Available Probiotic 15 billion cell capsule active Prescrib ed Elsewher e: Yes Loca tion: Juan C fox [facility] odify By: gilberto garridoer DateTime : 01/06/20 18 01:00:00 PM Not Available Not Available Not Available Vitals Date Recorded Body height Body mass index (BMI) Body weight Systolic And Diastolic Provider Name and Address Organization Details Last Updated DateTime 01/18/2025 147.32 cm 38.3 kg/m2 83160.84 g 117/84 mm[Hg] Gissel Valencia [facility] 01/18/2025 16:18:21 Social History Question Answer Notes LastModified by Organizat ion Details LastModified Time Tobacco Smoking Status Never Smoker Gissel lowe [facility] 01/18/2025 16:34:52 In The 14 Days Before Symptom Onset, Have You Had Close Contact With A Laboratory-confirm ed COVID-19 While That Case Was Ill? No [email or web address] Information n ot available 01/18/2025 In The 14 Days Before Symptom Onset, Have You Had Close Contact With A Person Who Is Under Investigation For COVID-19 While That Person Was Ill? No [email or web address] Information not available 01/18/2025 Have You Been To An Area Known To Be High Risk For COVID-19? No [email or web address] Information not available 01/18/2025 Sex: Unknown Functional Status None recorded. Mental Status None recorded. Family History Relationship Description Onset Age of this Age Resolved Age Notes LastModified by Organization Details LastModified Time Mother Malignant tumor of breast [email or web address] Not available 2024 16:33:21 Mother Disorder of thyroid gland [email or web address] Not available 2024 16:34:39 Paternal Grandmother Malignant tumor of colon [email or web address] Not available 2024 16:33:48 Paternal Grandfather Malignant tumor of colon [email or web address] Not available 2024 16:33:48 Sister Muscular dystrophy Not available 2024 16:34:25 Notes:Father: Infertility Ma ternal aunt: Cancer, breast Mother: Infertility, Thyroid disease, Cancer, breast Paternal grandfather: Cancer, colon Paternal grandmother: Cancer, colon Sister: Genetic disease, Infertility Medical History Condition Response Allergies (Food, seasonal, environmental ) N Other N Drug/Latex Allergies/Reactions Y Blood Transfusion N Breast Cancer N Dermatologic Disorders N Lung Disease N Defects or Inherited Disease N Breast Problem N Gestational Diabetes N Hematologic disorders N Anesthesia Complications N History of STI Y Deep Vein Thrombosis N Polycystic ovary syndrome N Anxiety Disorder Y Autoimmune disease N Arthritis N Polyps N Infertility N Acid Reflux (GERD) Y History of abnormal pap N Cancer N Varicosities N Stroke N Neurologic/Epilepsy N Endometriosis N High Cholesterol N Fibromyalgia N Headaches N Kidney Disease N Heart Problems N Thyroid Problems Y Kidney or Bladder Problems N GI Problems N Eating Disorder N Anemia [...] Diagnosis SNOMED-CT Code Diagnosis ICD10 Code Diagnosis IMO Codes Diagnosis Note [id number] Brandi Adhikari NOEMY [place] [address] [address] 01/18/2025 15:48:34 01/19/2025 10:07:18 Pain in pelvis 24354572 R10.2 63099 Detailed health hx obtained and reviewed todayUA done, urine cx sentwe agreed to update pelvic u/swill reach out to pt with results when availablee ncouraged continued PCP/GI fu as well Time spent in visit is a total of 25 mins with at least 50% of visit consisting of counseling and review of plan of care. Right lowe r quadrant pain 934806537 R10.31 [id number] Jesus Pond MD [place] [address] [address] 01/25/2025 14:42:21 01/25/2025 15:18:43 Pain in pelvis 41119930 R10.2 150451 Health Concerns Section Related Observation LastModified by Organization Detai ls LastModified Time None Recorded Concern Status LastModified by Organization Details LastModified Time None Recorded Advance Directives Directive None Recorded Payers Insurance Date Sequence Insurance Name Policy Number Policy Luna Covered Member ID Luna Member ID Guarantor Name 01/22/2025 2 [employer] (MEDICARE SUPPLEMENT) Heather Pipes [id number] Heather Pipes 01/20/2025 1 [place] Heather M Pipes [id number] Heather Pipes Notes Date Note Type Note Provider Name and Address Organization Details Recorded Time 01/18/2025 text/html 69yoh/o unilateral SO (unsure side) and endometrial ablation in [...] any pain. NOEMY Pringle [address], [place], [address], [place] [facility] 01/19/2025 08:51:16 OBGyn Episode Ob Episode Information Episode Created Date Number of Fetuses Patient Bloodtype Patient rh Status Prepregnancy Weight lbs Domestic Partner Domestic Partner Phone Father Name Tank Builder Helper Status 01/19/20 25 1 CLOSED Fetus Data First Name Last Name Admitted to NICU Weight (g) Sex Living Outcome Pediatric Complications Fetus ID Race Codes Race Delivery Type 2976.47 0704 F Full Term [id number] Vaginal Delivery Bernard Calculation Initial Bernard Date [...] Domestic Partner Domestic Partner Phone Father Name Tank Builder Helper Status 01/19/20 25 1 CLOSED Fetus Data First Name Last Name Admitted to NICU Weight (g) Sex Living Outcome Pediatric Complications Fetus ID Race Codes Race Delivery Type , Spontane ous 05160 Bernard Calculation Initial Bernard Date Initial Exam [...] Domestic Partner Domestic Partner Phone Father Name Tank Builder Helper Status 01/19/20 25 1 CLOSED Fetus Data First Name Last Name Admitted to NICU Weight (g) Sex Living Outcome Pediatric Complications Fetus ID Race Codes Race Delivery Type 3458.63 9 F Full Term [id number] Primary Bernard Calculation Initial Bernard Date Initial [...]
--- OUTSIDE RECORDS SUMMARY | 2025-04-29 14:46 | XMS_ITS | Patient Health Record ---
Author Organization [facility] Address [address] [place], [place] [id number] Care Team Providers Care Mortgage Clerk Name Role Phone JM FAIRCHILD Unavailable [phone] Dayanna Aj Unavailable Unavailable Allergies Allergen (clinical [...] Location Date Provider Diagnosis [facility] [address] [place], [place] [id number] 07/15/2024 JM FAIRCHILD Sprain of anterior talofibular [...] Date Coverage End Date Medicare Part B [place] [address] [place] [address] [id number] Gayla Heather Self - patient is the insured 8 [facility] Medicare Supplement [address] [place], [place] [id number] Gayla Heather Self - patient is the [...]
--- OUTSIDE RECORDS SUMMARY | 2025-04-29 14:46 | XMS_ITS | Clinical Summary ---
Author Organization [facility] Address [address] 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,non-owned Affiliates and Associated Physician Practices is amultiple site organization consisting of ambulatory clinics and hospital sitesin [place], [place], [place]. This disclosure is being madepursuant to the Care Everywhere program and may not contain all information available regarding this patient. Last updated 18.[facility] [employer] Allergies Active Allergy Reactions Criticality Noted Date [...] mouth every 6 hours as needed Active Hampton-3 Fatty Acids (fish oil) 1000 MG capsule [...] once daily 11/01/19 22 Active HYDROcodone-acet aminophen ([place]) 7.5-325 MG tablet Take 1 (one) tablet by mouth every 6 hours as needed for Pain Active Klor-Con M20 20 MEQ tablet Take 1 (one) tablet by mouth once daily 02/06/20 23 Active nystatin (Mycostatin) 932104 UNIT/GM cream 04/22/20 23 Active amoxicillin (Amoxil) 500 MG capsule as needed 08/06/19 24 Active benztropine (Cogentin) 1 MG tablet Take 1 (one) tablet by mouth once daily Active vitamin D, ergocalciferol, (Drisdol) 1.25 MG (67860 UT) capsule 10/09/19 24 Active lisinopril (Prinivil; [...] sprayIndications :Allergic rhinitis, unspecified seasonality, unspecified trigger [place] 2 (two) sprays into each nostril once [...] Encounters Date Type Department Care Team Description 02/22/2025 Orders Only [facility] [address] [phone] Duncan Sharp, Other specified disorders of bone density and structure, unspecified site 02/09/[address] [facility] [address] [place] [address] Duncan Sharp, Surgery Scheduling from Last 3 Months Immunizations Immunization Administration Dates Next Due INFLUENZA VACCINE, TRIV. (AF LURIA, FLUZONE TRIVALENT; 6MO+) (IIV3) 07/04/2014,05/10/2013 COVID PFIZER 12+YR 30MCG/0.3mL 05/02/2023 COVID PFIZER BIVALENT 12Y+ 30mcg/0.3ML 04/16/2022 Covid Pfizer primary monoval ent 12+ yr 0.3mL Purple cap 05/03/2021,10/10/2020,09/19/2020 FLU VACCINE TRI IIV3 SPLIT I M (FLUVIRIN) 05/26/2013,05/15/2013 INFLUENZA [id number], HISTORIC VACCINE 05/04,05/20/2022,05/10/2021,2020 INFLUENZA VACCINE, ADJUVANTE D, [...] Upcoming Encounters Date Type Department Care Team (Latest Contact Info) Description 05/11/2025 1:30 PM CDT Appointment [facility] PREADMISSTION TESTING [address] [facility], [facility] [address] [place] [address] 05/23/2025 2:00 PM CDT Office Visit [facility] - Neurology [address] [facility], [place] [phone] Katie Augustin APRN-ARIEL [address] [place] [address] [place] [address] 06/09/2025 8:50 AM FORENSIC PSYCHIATRIST Hospital Encounter [facility] [address] [place] [address] Duncan Sharp, [facility] Medical [address] [phone] Surgery General 06/09/2025 8:50 AM FORENSIC PSYCHIATRIST - 06/09/2025 11:15 AM FORENSIC PSYCHIATRIST Surgery [facility] [address] [place] [address] Duncan Sharp, [facility] Medical [address] [phone] REVISION OF TIBIOTALCALCANEAL ARTHRODESIS OF RIGHT ANKLE AND SUBTALAR JOINTS, RIGHT ANKLE HARDWARE REMOVAL 06/09/2025 9:30 AM FORENSIC PSYCHIATRIST Procedure visit [address] [phone] Duncan Sharp, [facility] Medical [address] [phone] 06/17/2025 10:30 AM FORENSIC PSYCHIATRIST Office Visit [facility] [address] [place] [address] Aleksandr Ambrose PA-C [facility] Medical [address] [phone] 06/24/2025 10:30 AM FORENSIC PSYCHIATRIST Office Visit [facility] [address] [place] [address] Aleksandr Ambrose PA-C [facility] [address] [place] [phone] 07/20/2025 10:50 AM FORENSIC PSYCHIATRIST Office Visit [facility] [address] [place] [address] Duncan Sharp, [facility] Medical [address] [phone] Scheduled Procedures Name Priority Associated Diagnoses Date/Ti me ARTHRODESIS/FUSION SUBTALAR M96.0, Z96.9, Z98.890 06/09/2025 8:50 AM FORENSIC PSYCHIATRIST Health Maintenance Due Date Last Done Comments BONE DENSITY TESTING 1955 COLOGUARD (AGES 45-75) - COLON CA SCREENING 1953 COLON MONITORING 1953 COLONOSCOPY - COLON CA SCREENING 1953 CT COLONOGRAPHY - COLON CA SCREENING 1955 Colorectal Cancer Screening 1955 FIT - COLON CA SCREENING 1953 FLEX SIG - COLON CA SCREENING 1955 MAMMOGRAM 1955 MEDICARE AWV 12 MONTHS 1955 HEPATITIS C SCREENING 05/13/1971 DEPRESSION SCREENING 08/04/2024 COVID-19 VACCINE ( season) 2025 05/02/2023, 04/16/2022, 05/03/2021, Additional history exists INFLUENZA VACCINE (#1) 2025 3, 05/20/2022, 05/20/2022, [...] per facility. Medical Devices Implanted Type Area Core Driller Helper Device Identifier Shelf Expiration Date Model / Serial / Lot Mri Unsafe Moreira Neuro Stimulator Neuro Stimulator [id number] / / Description:per manual MRI u nsafe 3.5 Mm Lateral Distal Fibula Plate Implanted:Qt y: 1 on 09/22/2021 by Gonzales Rey, DO at [facility] Plate Right: Ankle [employer] [id number] / / Screw 3.5mm 14mm Slf-Tap Cortx Evos Strl Implanted:Qt y: 4 on 09/22/2021 by Gonzales Rey, DO at [facility] Screw Right: Ankle [employer] [id number] / / Screw 3.5mm 48mm Slf-Tap Cortx Evos Strl Implanted:Qt y: 1 on 09/22/2021 by Gonzales Rey, DO at [facility] Screw Right: Ankle [employer] [id number] / / Screw 3.5mm 55mm Slf-Tap Cortx Evos Strl Implanted:Qt y: 1 on 09/22/2021 by Gonzales Rey, DO at [facility] Screw Right: Ankle [employer] [id number] / / Fully Threaded 4.7 Mm Osteopenia Screw Implanted:Qt y: 1 on 09/22/2021 by Gonzales Rey, DO at [facility] Screw Right: Ankle [employer] [id number] / / 3.5 Mm Locking Screw Implanted:Qt y: 1 on 09/22/2021 by Gonzales Rey, DO at [facility] Screw Right: Ankle [employer] [id number] / / Kit Bngf 3cc Aug Inj Implanted:Qt y: 1 on 10/14/2022 by Amy Mondragon MD at [facility] Right: Ankle [employer] 05/03/2023 [id number] / / [id number] Kit Bngf 3cc Aug Inj Implanted:Qt y: 1 on 10/14/2022 by Amy Mondragon MD at [facility] Right: Ankle [employer] Inc 05/03/2023 [id number] / / [id number] Graft Bone Canc 4-9.5mm 15cc Frzdr Chp Implanted:Qt y: 1 on 10/14/2022 by Amy Mondragon MD at [facility] Right: Ankle [employer] 08/19/2026 [id number] / / [id number] Right Small Nail Implanted:Qt y: 1 on 10/14/2022 by Amy Mondragon MD at [facility] Right: Ankle [employer] 05/20/2030 [id number] / / [id number] Screw 5mm 25mm Valor Ti Hindfoot Fsn Sys Implanted:Qt y: 1 on 10/14/2022 by Amy Mondragon MD at [facility] Right: Ankle [employer] 07/16/2030 [id number] / / [id number] Screw 5mm 30mm Valor Ti Hindfoot Fsn Sys Implanted:Qt y: 1 on 10/14/2022 by Amy Mondragon MD at [facility] Right: Ankle [employer] 08/23/2030 [id number] / / [id number] 5x40mm Screw Implanted:Qt y: 1 on 10/14/2022 by Amy Mondragon MD at [facility] Right: Ankle [employer] [id number] 07/16/2030 [id number] / / [id number] 5x70mm Screw Implanted:Qt y: 1 on 10/14/2022 by Amy Mondragon MD at [facility] Right: Ankle [employer] [id number] 01/16/2030 [id number] / / [id number] Screw 3.5mm 18mm T10 Ft Strdr Nonster Implanted:Qt y: 1 on 10/14/2022 by Amy Mondragon MD at [facility] Right: Ankle [employer] [id number] / / Screw 3.5mm 50mm T10 Ft Strdr Nonster Implanted:Qt y: 1 on 10/14/2022 by Amy Mondragon MD at [facility] Right: Ankle [employer] [id number] / / Graft Bone Ignite Dbm 20ml Pwr Mx Inj - [id number] Implanted:Qt y: 1 on 10/14/2022 by Amy Mondragon MD at [facility] Right: Ankle [employer] 03/18/2026 [id number] / [id number] / Lead Nrstm Inspr 3 Eltrd Cuf Tnl Pelon - [id number] Implanted:Qt y: 1 on 05/10/2024 by Sriram Simon MD at [facility] Right: Neck [employer] [id number] 06/29/2026 [id number] / [id number] / Lead Ns Resp - [id number] Implanted:Qt y: 1 on 05/10/2024 by Sriram Simon MD at [facility] Right: Chest [employer] [id number] 09/15/2026 [id number] / [id number] / Gntr Nrs - [id number] Implanted:Qt y: 1 on 05/10/2024 by Sriram Simon MD at [facility] Right: Chest [employer] [id number] 07/14/2026 [id number] / [id number] / Explanted Type Area Core Driller Helper Device Identifier Shelf Expiration Date Model / Serial / Lot Fully Threaded 4.7 Mm Osteopenia Screw Explanted:Qty: 1 on 09/22/2021 by Gonzales Rey DO at [facility] Screw Right: Ankle [employer] [id number] / / Wire K 1.6mm 150mm Troc Pnt Ss Fx Strl Explanted:Qty: 2 on 09/22/2021 by Gonzales Rey DO at [facility] Wire Right: Ankle [employer] [id number] / / Procedures Procedure Name Priority Date/Time Associated Diagnosis Comments LAB RESULTS ORDER 02/22/2025 LAB RESULTS ORDER 02/22/2025 BASIC METABOLIC PANEL (CALCIUM TOTAL) STAT 03/17/2024 10:43 AM CDT [place] (obstructive sleep apnea) from Last 3 Months or Most Recently Relevant to Health Maintenance Results * LAB RESULTS ORDER (02/22/2025) Only the most recent of2 resultswithin the time period is included. 02/22/2025 Narrative 02/22/2025 Ordered by an unspecified provider. us Scanned Document LAB - THERAPEUTIC DRUG MONITORI NG ORDERABLES Final Result * (ABNORMAL) BASIC METABOLIC PANEL (CALCIUM TOTAL) (03/17/2024 10:43 AM CDT) BUN 21 7 - 26 mg/dL 03/17/2024 11:21 AM [facility] Creatinine 0.56 0.56 - 0.96 mg/dL 03/17/2024 11:21 AM [facility] Sodium 138 136 - 145 mmol/L 03/17/2024 11:21 AM [facility] Potassium 4.3 3.5 - 4.5 mmol/L 03/17/2024 11:21 AM [facility] Chloride 104 98 - 107 mmol/L 03/17/2024 11:21 AM [facility] CO2 26 22 - 29 mmol/L 03/17/2024 11:21 AM [facility] Glucose 99 70 - 115 mg/dL 03/17/2024 11:21 AM [facility] Calcium 9.4 8.4 - 10.2 mg/dL 03/17/2024 11:21 AM [facility] Anion Gap 8 6 - 16 03/17/2024 11:21 AM T [facility] BUN/Creatinine Ratio 38(H) 7 - 23 03/17/2024 11:21 AM T [facility] Osmolality Calculated 289 275 - 295 mOsm/kg 03/17/2024 11:21 AM T [facility] eGFR by CKD-EPI >90 >=90 mL/min/1.7 3 m2 03/17/2024 11:21 AM T [facility] Blood BLOOD SPECIMEN / Unknown Line Draw / Unknown 03/17/2024 10:43 AM CDT 03/17/2024 10:49 AM CDT Sriram Simon MD LAB - CHEMISTRY ORDERABLE S Final Result [facility] [address] [place] [address], [facility] [phone] from Last 3 Months or Most Recently Relevant to Health Maintenance Insurance MEDICARE [facility] MEDICARE [facility] Advance Directives * Full Code (Latest Code Status on File) Date Activated Date Inactivated Comments 10/14/2022 12:56 PM 10/15/2022 3:28 PM * Full Code Date Activated Date Inactivated Comments 09/21/2021 11:17 AM 09/25/2021 3:39 PM Care Teams 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
== END 2025-04-29 14:39 | disposition home or self-care (01) ==
PROVIDERS: PCP Nurse Practitioner Family; Visit Provider Physician Assistant
DX: M96.1 Postlaminectomy syndrome, not elsewhere classified (principal); M54.16 Radiculopathy, lumbar region; M47.816 Spondylosis without myelopathy or radiculopathy, lumbar region; Z98.1 Arthrodesis status
CPT/HCPCS: 72131

== ENCOUNTER 2025-06-07 16:21 | Outpatient (CLI) | payer MEDICARE, SELFPAY ==
--- OUTSIDE RECORDS SUMMARY | 2025-06-07 16:57 | XMS_ITS | Clinical Summary ---
Author Organization [facility] Address [address] [place] [address] Care Team Providers Care Spare Parts Clerk Name Role Phone Juana Nguyen MD Primary Care Provider + [phone] Allergies Active Allergy Reactions Criticality Noted Date [...] Oral q hs, Route to Pharmacy Electronically, [facility]/pharmacy #[id number], 150, 09/27/21 13:13:00 [facility], Height/Length Dosing, cm, 97.8, 09/25/21 18:28:00 [facility], Weight Dosing, kg 2 Active omeprazole 40 [...] virus vaccine, PF, 0.5 ML injection Afluria 2608-3722(PF) 45 mcg (15 mcg x 3)/0.5 mL [...] mg tablet Active vitamin D2, ergocalciferol , 13757 UNITS capsule Take 50,000 Units by mouth [...] or Tdap) 10/01/2021 10/02/2011 COVID-19 Vaccine ( - season) 2025 05/03/2021, 10/10/2020, 09/19/2020 Influenza Adult (#1) 2025 06/02/2019, 05/22/2018, 04/23/2017, Additional history exists RSV Immunization or 60+ Years (1 - 1-dose 75+ series) 2028 Pneumococcal Vaccine: 50+ Years Completed 07/21/2020, 11/11/2014, 11/04/2014 Hepatitis A Vaccines Aged Out No long er eligible based on patient's age to complete this topic Meningococcal B Vaccine Aged Out No l onger eligible based on patient's age to complete this topic Meningococcal Vaccine Aged Out No kyree gary eligible based on patient's age to complete this topic RSV Immunizations Under 20 Months Aged Out No longer eligible based on patient's age to complete this topic Insurance MEDICARE [facility] Care Teams Spare Parts Clerk Relationship Specialty Start Date End Date Juana Nguyen MD [address], [place] [address] PCP - General 06/26/14
--- OUTSIDE RECORDS SUMMARY | 2025-06-07 16:57 | XMS_ITS | Data Portability ---
Author Organization [facility] Address [address] [place] [address] [place] [address] Care Team Providers Care Track Hoe Operator Name Role Phone JOSUE HOGAN Primary Care Provider [phone] Assessment No assessment recorded. Plan of Treatment Reminders Order Date Submit Date Provider Last Modified By Organization Details Last Modified Time Details Appointments None recorded. Lab urinalysis, dipstick 2024 [address], [address], [place], [address], 17:49:05 culture, urine 2024 025 [facility] (Lab), [address], [place], [address], 22:24:58 Referral None recorded. Procedures None recorded. Surgeries None recorded. Imaging US, pelvis 2024 [email or web address], [address], [place], [address], 09:56:35 US, transvagina l 2024 [email or web address], [address], [place], [address], 09:56:35 US, transvagina l 2024 025 [email or web address], [address], [place], [address], 09:56:35 US, pelvis, complete 2024 025 [email or web address] Not available 13:13:54 Medication Orders None recorded. [...] t Abnor mal: No Resul ting Lab: [facility] [address] [facility] [address] Tel: CULTU RE ----- ----- ----- --- No growt h in 1 day (dete ction level of 10,00 0 colon ies / ml.) Not Available [facility] (Lab) [address], [place], [address], 01/19/2025 22:24:58 01/19/20 25 01/18/2025 urina lysis , dipst ick Leukocytes +++ Not Available Helen berry [address], [place], [address], 01/18/2025 17:48:11 01/19/20 25 01/18/2025 urina lysis , dipst ick Nitrite - Not Available [place] [address], [place], [address], 01/18/2025 17:48:11 01/19/20 25 01/18/2025 urina lysis , dipst ick Urobilinogen Normal Not Available [facility] [address], [place], [address], 01/18/2025 17:48:11 01/19/20 25 01/18/2025 urina lysis , dipst ick Protein + Not Available [place] [address], [place], [address], 01/18/2025 17:48:11 01/19/20 25 01/18/2025 urina lysis , dipst ick pH 5 Not Available [place] [address], [place], [address], 01/18/2025 17:48:11 01/19/20 25 01/18/2025 urina lysis , dipst ick Specific [place] 1.030 Not Available [facility] [address], [place], [address], 01/18/2025 17:48:11 01/19/20 25 01/18/2025 urina lysis , dipst ick Ketone + Not Available [place] [address], [place], [address], 01/18/2025 17:48:11 01/19/20 25 01/18/2025 urina lysis , dipst ick Bilirubin - Not Available [facility] [address], [place], [address], 01/18/2025 17:48:11 01/19/20 25 01/18/2025 urina lysis , dipst ick Glucose Normal Not Available [place] [address], [place], [address], 01/18/2025 17:48:11 01/19/20 25 01/18/2025 urina lysis , dipst ick Appearance cloudy Not Available [facility] [address], [place], [address], 01/18/2025 17:48:11 01/19/20 25 01/18/2025 urina lysis , dipst ick Color yellow Not Available [place] [address], [place], [address], 01/18/2025 17:48:11 01/26/20 25 01/25/2025 US, pelvi s No observ ation record ed. [email or web address] [place] [address], [place], [address], 01/25/2025 17:38:49 01/26/20 25 01/25/2025 US, trans vagin al No observ ation record ed. [email or web address] [place] [address], [place], [address], 01/25/2025 17:39:01 01/26/20 25 01/25/2025 US, trans vagin al No observ ation record ed. [email or web address] [place] [address], [place], [address], 01/25/2025 17:39:12 01/26/20 25 01/25/2025 US, pelvi s No observ ation record ed. [email or web address] [place] [address], [place], [address], 01/27/2025 18:04:18 Result Notes None recorded. 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, high risk on cervical specimen 066796468 Active 2017 Cervical high risk HPV DNA test positive;P christiano ID: 0001 Not Available [facility] 0 16:04:35 Evaluatio n finding Active 2017 Unsp abnormal cytolog findings in specmn from cervix uteri;Prac thanh ID: 0001 Not Available [facility] 0 16:04:35 Tinea corporis 21660843 Active 2017 Tinea corporis;R ecorded Elsewhere: No Locatio n: [facility] rce: EHR Chroni c: N Practice ID: 0001 Billa ble Time: 01:00:00 PM Not Available [facility] 0 16:04:[address] Concept Active 2018 Encntr for general adult medical exam w/o abnormal findings;P sivakumartice ID: 0001 Not Available [facility] 0 16:04:35 At risk - finding 114064762 Active 2018 Oth personal risk factors, not elsewhere classified ;Practice ID: 0001 Not Available [facility] 0 16:04:35 Screening for malignant neoplasm of rectum Active 2018 Encounter for screening for malignant neoplasm of rectum;Pra ctice ID: 0001 Not Available [facility] 0 16:04:[address] Concept Active 2018 Well woman check w/o abnormal finding;Re corded Elsewhere: No Locatio n: [facility] rce: EHR Chroni c: N Practice ID: 0001 Billa ble Time: 02:30:00 PM Not Available [facility] 0 16:04:36 Screening for malignant neoplasm of cervix Active 2018 Encounter for screening for malignant neoplasm of cervix;Rec orded Elsewhere: No Locatio n: [facility] rce: EHR Chroni c: N Practice ID: 0001 Billa ble Time: 02:30:00 PM Not Available [facility] 0 16:04:36 Problem Notes None recorded. Procedures Surgical History Date Name Laterality Status Provider Name and Address Organization Details Recorded Time 2 repair of ankle completed [facility] 01/18/2025 16:38:13 4 replacement of bilateral knee joints completed [facility] 01/18/2025 16:37:16 4 salpingo-oophor ectomy completed [facility] 01/18/2025 16:35:53 4 endometrial ablation completed [facility] 01/18/2025 16:36:06 4 section completed [facility] 01/18/2025 16:35:12 spinal arthrodesis completed [facility] 01/18/2025 16:37:47 Imaging Results None recorded. Procedure Notes None recorded. Medical Equipment None Reported. Allergies Allergen ID Allergen Name Allergen Category Reaction Reaction Severity Criticality Documentation Date Start Date Code Code System Note Provider Name and Address Organization Details Recorded Time 06927 pregabali n medicatio n Not available Not available Not available 07/21/2020 82009 2 RxNorm Comme nt: [facility] Agent : Zofia a; Not Available [facility] 0 14:20:49 39023 Ativan medicatio n Not available Not available Not available 01/18/202504522 9 RxNorm [facility] 5 16:18:40 76882 adhesive tape environme nt,medica tion Not available Not available Not available 01/18/2025 [facility] 5 16:18:47 Medications Name Sig Start Date Stop Date Status Note LastModified by Organization Details LastModified Time losartan 50 mg tablet TAKE 1 TABLET BY MOUTH EVERY DAY active Not Available Not Available No t Available pramipexo le 1 mg tablet take 1 tablet by oral route 3 times every day active Prescrib ed Elsewher e: Yes Loca tion: [facility] M odify By: gilberto Braxton ncounter DateTime [...] Elsewher e: Yes Loca tion: Ervin braxton [facility] odify By: gilberto langleyuntjaqui DateTime : 01/06/20 18 01:00:00 PM Not Available Not Available Not Available nystatin 100,000 unit/gram topical ointment apply by topical route 2 times every day to the affected area(s) 01/18 completed Prescrib ed Elsewher e: Yes Loca tion: Ervin braxton [facility] odify By: gilberto Braxton ncounter DateTime : 01/06/20 18 01:00:00 PM Not Available Not Available Not Available benzonata te 200 mg capsule take 1 capsule by oral route 3 times every day as needed for cough 02/11 completed Prescrib ed Elsewher e: Yes Loca tion: Ervin braxton [facility] odify By: remi langleyuntjaqui DateTime : 01/06/20 18 01:00:00 PM Not Available Not Available Not Available sulfameth oxazole 400 mg-trimet hoprim 80 mg tablet take 2 tablet by oral route every 12 hours 08/11 completed Prescrib ed Elsewher e: Yes Loca tion: Ervin braxton [facility] odify By: rosalie langleyuntjaqui DateTime : 01/06/20 18 01:00:00 PM Not Available Not Available Not Available carbidopa 25 mg-levodo pa 250 mg tablet take 1 tablet by oral route 3 times every day active Prescrib ed Elsewher e: Yes Loca tion: Ervin braxton [facility] odify By: gilberto langleyuntjaqui DateTime : 01/06/20 18 01:00:00 PM Not Available Not Available Not Available meloxicam 15 mg tablet take 1 tablet by oral route every day 02/11 completed Prescrib ed Elsewher e: Yes Loca tion: Ervin braxton [facility] odify By: remi langleyuntjaqui DateTime : [...] Elsewher e: Yes Loca tion: Ervin braxton [facility] odify By: gilberto nj DateTime : 01/06/20 18 01:00:00 PM Not Available Not Available Not Available Klor-Con 20 mEq oral packet take 1 packet by oral route 4 times every day dissolve d in 4-6 ounces of cold water or juice active Prescrib ed Elsewher e: Yes Loca tion: Ervin braxton [facility] odify By: gilberto nj DateTime : [...] Elsewher e: Yes Loca tion: Ervin braxton [facility] odify By: gilberto nj DateTime : 01/06/20 18 01:00:00 PM Not Available Not Available Not Available ranitidin e 25 mg/mL injection solution infuse by intraven ous route every 8 hours over 01/18 completed Prescrib ed Elsewher e: Yes Loca tion: Ervin braxton [facility] odify By: gilberto nj DateTime : 01/06/20 18 01:00:00 PM Not Available Not Available Not Available levothyro xine 100 mcg tablet TAKE 1 TABLET BY MOUTH EVERY DAY 01/18 completed Not Available Not Available Not Available bupropion HCl 100 mg tablet take 1 tablet by oral route 2 times every day 01/18 completed Prescrib ed Elsewher e: Yes Loca tion: Ervin braxton [facility] odify By: gilberto nj DateTime : [...] Elsewher e: Yes Loca tion: Ervin braxton [facility] odify By: gilberto nj DateTime : 01/06/20 18 01:00:00 PM Not Available Not Available Not Available dicyclomi ne 20 mg tablet TAKE 1 TABLET BY MOUTH TWICE A DAY 01/18 completed Not Available Not Available Not Available Vitamin C oral powder active Prescrib ed Elsewher e: Yes Loca tion: Ervin braxton [facility] odify By: gilberto nj DateTime : [...] Elsewher e: Yes Loca tion: Ervin braxton [facility] odify By: gilberto nj DateTime : 01/06/20 18 01:00:00 PM Not Available Not Available Not Available amoxicill in 250 mg capsule take 2 capsule by oral route 4 times every day 01/18 completed Prescrib ed Elsewher e: Yes Loca tion: Ervin braxton [facility] odify By: gilberto nj DateTime : [...] Elsewher e: Yes Loca tion: Ervin braxton [facility] odify By: gilberto langleyunter DateTime : [...] Elsewher e: No Locat ion: Ervin braxton [facility] odify By: lbhollis tz Encou nter DateTime : 01/29/20 18 [...] Elsewher e: Yes Loca tion: Ervin braxton [facility] odify By: gilberto garridoer DateTime : 01/06/20 18 01:00:00 PM Not Available Not Available Not Available magnesium 30 mg tablet active Prescrib ed Elsewher e: Yes Loca tion: Ervin braxton [facility] odify By: gilberto langleyunter DateTime : 01/06/20 18 01:00:00 PM Not Available Not Available Not Available metronida zole 0.75 % topical gel apply by topical route 2 times every day a thin layer to the affected area(s) in the morning and evening 08/11 completed Prescrib ed Elsewher e: Yes Loca tion: Ervin braxton [facility] odify By: rosalie nj DateTime : [...] Elsewher e: Yes Loca tion: Ervin braxton [facility] odify By: gilberto nj DateTime : [...] Elsewher e: Yes Loca tion: Ervin braxton [facility] odify By: gilberto nj DateTime : 01/06/20 18 01:00:00 PM Not Available Not Available Not Available Super B Complex + C 150 mg tablet active Prescrib ed Elsewher e: Yes Loca tion: Ervin braxton [facility] odify By: gilberto nj DateTime : 01/06/20 18 01:00:00 PM Not Available Not Available Not Available Fish Oil 300 mg-1,000 mg capsule active Prescrib ed Elsewher e: Yes Loca tion: Ervin [facility] odify By: gilberto nj DateTime : 01/06/20 18 01:00:00 PM Not Available Not Available Not Available Calcium 600 + D(3) 600 mg-5 mcg (200 unit) capsule 01/18 completed Prescrib ed Elsewher e: Yes Loca tion: Ervin braxton [facility] odify By: gilberto nj DateTime : 01/06/20 18 01:00:00 PM Not Available Not Available Not Available Vitamin D3 125 mcg (5,000 unit) tablet active Prescrib ed Elsewher e: Yes Loca tion: Ervin braxton [facility] odify By: gilberto langleyunter DateTime : 01/06/20 18 01:00:00 PM Not Available Not Available Not Available Hair,Skin ,Nails with Biotin 7.5 mg-7.5 unit-1,25 0 mcg chewable tablet active Prescrib ed Elsewher e: Yes Loca tion: Ervin braxton [facility] odify By: gilberto langleyunter DateTime : 01/06/20 18 01:00:00 PM Not Available Not Available Not Available fluticaso ne propionat e, micronize d (bulk) 100 % powder 01/18 completed Prescrib ed Elsewher e: Yes Loca tion: Ervin braxton [facility] odify By: gilberto langleyunter DateTime : 01/06/20 18 01:00:00 PM Not Available Not Available Not Available Probiotic 15 billion cell capsule active Prescrib ed Elsewher e: Yes Loca tion: Juan C fox [facility] odify By: gilberto garridoer DateTime : 01/06/20 18 01:00:00 PM Not Available Not Available Not Available Vitals Date Recorded Body height Body mass index (BMI) Body weight Systolic And Diastolic Provider Name and Address Organization Details Last Updated DateTime 01/18/2025 147.32 cm 38.3 kg/m2 07090.84 g 117/84 mm[Hg] Gissel Valencia [facility] 01/18/2025 16:18:21 Social History Question Answer Notes LastModified by Organizat ion Details LastModified Time Tobacco Smoking Status Never Smoker Gissel lowe [facility] 01/18/2025 16:34:52 In The 14 Days Before Symptom Onset, Have You Had Close Contact With A Laboratory-confirm ed COVID-19 While That Case Was Ill? No [email or web address] Information n ot available 01/18/2025 In The [...] by Organization Details LastModified Time Mother Malignant neoplasm of breast [email or web address] Not available 2024 16:33:21 Mother Disorder of thyroid gland [email or web address] Not available 2024 16:34:39 Paternal Grandmother Malignant neoplasm of colon [email or web address] Not available 2024 16:33:48 Paternal Grandfather Malignant neoplasm of colon [email or web address] Not available 2024 16:33:48 Sister Muscular dystrophy [email or web address] Not available 2024 16:34:25 Notes:Father: Infertility Ma [...] ICD10 Code Diagnosis IMO Codes Diagnosis Note [id number] NOEMY Pringle [place] [address] [address] 01/18/2025 15:48:34 01/19/2025 10:07:18 Pain in pelvis 46456196 R10.2 95704 Detailed health hx obtained and reviewed todayUA done, urine cx sentwe agreed to update pelvic u/swill reach out to pt with results when availablee ncouraged continued PCP/GI fu as well Time spent in visit is a total of 25 mins with at least 50% of visit consisting of counseling and review of plan of care. Right lowe r quadrant pain [id number] R10.31 [id number] Jesus Pond MD [place] [address] [address] 01/25/2025 14:42:21 01/25/2025 15:18:43 Pain in pelvis 64124828 R10.2 119165 Health Concerns Section Related Observation LastModified by Organization Detai ls LastModified Time None Recorded Concern Status LastModified by Organization Details LastModified Time None Recorded Advance Directives Directive None Recorded Payers Insurance Date Sequence Insurance Name Policy Number Policy Luna Covered Member ID Luna Member ID Guarantor Name 01/22/2025 2 [employer] (MEDICARE SUPPLEMENT) Heather Pipes [id number] Heather Pipes 01/20/2025 1 [place] Heather M Pipes [id number] Heather Pipes Notes Date Note Type Note [...] any pain. NOEMY Pringle [address], [place], [address], [place] [facility] 01/19/2025 08:51:16 OBGyn Episode Ob Episode Information Episode Created Date Number of Fetuses Patient Bloodtype Patient rh Status Prepregnancy Weight lbs Domestic Partner Domestic Partner Phone Father Name Fixed Income Director Status 01/19/20 25 1 CLOSED Fetus Data First Name Last Name Admitted to NICU Weight (g) Sex Living Outcome Pediatric Complications Fetus ID Race Codes Race Delivery Type 2976.47 0704 F Full Term [id number] Vaginal Delivery Bernard Calculation Initial Bernard Date [...] Domestic Partner Domestic Partner Phone Father Name Fixed Income Director Status 01/19/20 25 1 CLOSED Fetus Data First Name Last Name Admitted to NICU Weight (g) Sex Living Outcome Pediatric Complications Fetus ID Race Codes Race Delivery Type , Spontane ous [id number] Bernard Calculation Initial Bernard Date Initial Exam Date Initial Exam Provider Initial Ultrasound Date Last Menstrual Period Date Ultra Sound Weeks Gestation 0 Eighteen To Twenty Week Bernard Update Ultra Sound Date Fundal Height At Umbil Quickening Date Ultra Sound Latest Weeks Gestation Final Bernard Confirmed By Final Beranrd Confirmed Date Final Bernard Date Ultra Sound [...] Domestic Partner Domestic Partner Phone Father Name Fixed Income Director Status 01/19/20 25 1 CLOSED Fetus Data First Name Last Name Admitted to NICU Weight (g) Sex Living Outcome Pediatric Complications Fetus ID Race Codes Race Delivery Type 3458.63 [phone] F Full Term [id number] Primary Bernard Calculation Initial Bernard Date Initial [...]
--- OUTSIDE RECORDS SUMMARY | 2025-06-07 16:57 | XMS_ITS | Patient Health Record ---
Author Organization [facility] Address [address] [place], [place] [address] Care Team Providers Care Gate Manager Name Role Phone JM FAIRCHILD Unavailable [phone] Dayanna Aj Unavailable Unavailable Allergies Allergen (clinical drug ingredient) Drug/Non Drug Allergy documented on EMR Reaction Allergy Type Onset Date Status Adhesive Unknown Allergy Active Reason For Referral No Information Medications Medication SIG (Take, Route, Frequency, Duration) Notes Start Date End Date Status Gabapentin 300 MG Capsule Oral; Duration: 90 Days Active Klor-Con M20 20 MEQ Tablet Extended Release Oral; Duration: 90 Days Active Levothyroxine Sodium 100 MCG Tablet Oral; Duration: 90 Days Acti ve Losartan Potassium 25 MG Tablet Oral; Duration: 90 Days Acti ve Montelukast Sodium 10 MG Tablet Oral; Duration: 90 Days Acti ve Omeprazole 40 MG Capsule Delayed Release Oral; Duration: 90 Days A ctive buPROPion HCl ER (XL) 300 MG Tablet Extended Release 24 Hour TAKE 1 TABLET BY MOUTH EVERY MORNING Oral; Duration: 90 Days Active OXcarbazepine 150 MG Tablet TAKE 1 (ONE) TABLET BY MOUTH 2 TIMES DAILY Oral; Duration: 90 Days Active Carbidopa-Levodopa ER 50-200 MG Tablet Extended Release TAKE 1 TABLET BY MOUTH EVERYDAY AT BEDTIME Oral; Duration: 90 Days Active clonazePAM 0.5 MG Tablet Oral; Duration: 90 Days Active DULoxetine HCl 60 MG Capsule Delayed Release Particles Oral; Duration: 90 Days Active Ferrous Sulfate 325 (65 Fe) MG Tablet TAKE 1 TABLET BY MOUTH EVERY OTHER DAY Oral; Duration: 90 Days Active Vital Signs Height-cm 147.32 cm 07/15/2024 Weight-kg 70.31 kg 07/15/2024 Height 58 in 07/15/2024 Weight 155 lbs 07/15/2024 BMI 32.39 kg/m2 07/15/2024 Encounters Encounter Location Date Provider Diagnosis [facility] [address] [place], [place] [id number] 07/15/2024 JM FAIRCHILD Sprain of anterior talofibular [...] Date Coverage End Date Medicare Part B [place] [address] [place] [address] [id number] Heather Shukla Self - patient is the insured 8 [facility] Medicare Supplement [address] [place], [place] [id number] [phone] [id number] Heather Shukla Self - patient is the insured 8 Medical (General) History Medical History History ICD Code acid reflux artificial joint neuropathy hepatitis GERD Leg/Feet cramps Arthritis Sleep apnea Thyroid Disease Back Trouble Psychiatric Disorder hypertension restless leg syndrome Surgical History Surgery Date(Month/Year) ankle surgery spine surgery Knee Surgery Rotator Cuff Gall Bladder section tonsillectomy Tubal Ligation
--- OUTSIDE RECORDS SUMMARY | 2025-06-07 16:57 | XMS_ITS | Clinical Summary ---
Author Organization [facility] Address [address] [place] [address] Care Team Providers Care Eyewear Manufacturing Tech Name Role Phone Dayanna Aj Adam LUCIA-JIG BORER Primary Care Provider Source Comments [facility],non-owned Affiliates and Associated Physician Practices is amultiple site organization consisting of ambulatory clinics and hospital sitesin [place], [place], [place] and [place]. This disclosure is being madepursuant to the Care Everywhere program and may not contain all information available regarding this patient. Last updated [email or web address] Allergies Active Allergy Reactions Criticality Noted Date [...] mouth every 6 hours as needed Active Chester-3 Fatty Acids (fish oil) 1000 MG capsule [...] once daily 11/01/19 22 Active HYDROcodone-acet aminophen (Combs) 7.5-325 MG tablet Take 1 (one) tablet by mouth every 6 hours as needed for Pain Active Klor-Con M20 20 MEQ tablet Take 1 (one) tablet by mouth once daily 02/06/20 23 Active nystatin (Mycostatin) 336558 UNIT/GM cream 04/22/20 23 Active amoxicillin (Amoxil) 500 MG capsule as needed 08/06/19 24 Active benztropine (Cogentin) 1 MG tablet Take 1 (one) tablet by mouth once daily Active vitamin D, ergocalciferol, (Drisdol) 1.25 MG (18981 UT) capsule 10/09/19 24 Active lisinopril (Prinivil; [...] Active Additional Information Patient not taking.Reported on 05/11/2025 docusate sodium (Colace) 100 MG capsule Take 1 (one) capsule by mouth once daily 20 capsule 05/10/20 24 Active losartan (Cozaar) 25 MG tabletIndication [...] sprayIndications :Allergic rhinitis, unspecified seasonality, unspecified trigger [place] 2 (two) sprays into each nostril once daily 48 g 4 07/22/20 24 Active Additional Information Patient not taking.Reported on 05/11/2025 fexofenadine (Briana) 180 MG tabletIndication s:Allergic rhinitis, unspecified seasonality, unspecified trigger Take 1 (one) tablet by mouth once daily 90 tablet 3 07/22/20 24 Active Additional Information Patient not taking.Reported on 05/23/2025 gabapentin (Neurontin) 100 MG capsuleIndicatio ns:RLS (restless legs syndrome) Take 3 (three) capsules by mouth at bedtime 270 capsule 3 07/22/20 24 Active ondansetron (Zofran) 4 MG tablet Take 1 (one) tablet by mouth every 6 hours as needed for Nausea/Vomiting Active OXcarbazepine (Trileptal) 150 MG tabletIndication s:Trigeminal neuralgia Take 1 (one) tablet by mouth 2 times daily 180 tablet 4 11/20/19 25 Active clonazePAM (KlonoPIN) 0.5 MG tablet Take 1 (one) tablet by mouth 2 times daily as needed for Anxiety 180 tablet 1 01/02/20 25 Active carbidopa-levodo pa (Sinemet) 25-100 MG tabletIndication s:RLS (restless legs syndrome) Take 2 (two) tablets by mouth 3 times daily 540 tablet 3 05/23/20 25 Active carbidopa-levodo pa CR (Sinemet CR) 50-200 MG tabletIndication s:RLS (restless legs syndrome) Take 1 (one) tablet by mouth 2 times daily 180 tablet 3 05/23/20 25 Active clonazePAM (KlonoPIN) 0.5 MG tabletIndication s:RBD (REM behavioral disorder) Take 1 (one) tablet by mouth at bedtime 30 tablet 5 05/23/20 25 Active OXcarbazepine (Trileptal) 150 MG tablet Take 1 (one) tablet by mouth 2 times daily 180 tablet 4 05/23/20 25 Active carbidopa-levodo pa (Sinemet) 25-100 MG tabletIndication s:RLS (restless legs syndrome) Take 2 (two) tablets by mouth 3 times daily 540 tablet 3 05/24/20 24 025 Discontin ued(Tx Complete) carbidopa-levodo pa CR (Sinemet CR) 50-200 MG tabletIndication s:RLS (restless legs syndrome) Take 1 (one) tablet by mouth 2 times daily 180 tablet 3 11/20/19 25 025 Discontin ued(Tx Complete) clonazePAM (KlonoPIN) 0.5 MG tabletIndication s:RBD (REM behavioral disorder) TAKE 1 TABLET BY MOUTH EVERYDAY AT BEDTIME 30 tablet 5 01/01/20 25 025 Discontin ued(Tx Complete) Active Problems Problem Noted Date Diagnosed Date [...] Encounters Date Type Department Care Team Description 05/23/2025 2:00 PM CDT Office Visit [facility] - Neurology [address] [facility], [place] [address] Katie Augustin APRN-CNP RLS (restless legs syndrome) (Primary Dx); RBD (REM behavioral disorder); Trigeminal neuralgia 05/23/2025 Travel 05/11/2025 1:05 PM CDT - 05/11/2025 11:59 PM CDT Hospital Encounter [facility]READMISST[facility] TESTING [address] [facility] [address] [place] [address] Duncan Sharp DO Discharge Disposition: Home or Self Care 05/11/2025 Travel 05/02/2025 Telephone [facility] [address] [facility], [facility] [address] [place] [address] Duncan Sharp DO Letter; Question from Last 3 Months Immunizations Immunization Administration Dates Next Due INFLUENZA VACCINE, TRIV. (AF LURIA, FLUZONE TRIVALENT; 6MO+) (IIV3) 07/04/2014,05/10/2013 COVID PFIZER 12+YR 30MCG/0.3mL 05/02/2023 COVID PFIZER BIVALENT 12Y+ 30mcg/0.3ML 04/16/2022 Covid Pfizer primary monoval ent 12+ yr 0.3mL Purple cap 05/03/2021,10/10/2020,09/19/2020 FLU VACCINE TRI IIV3 SPLIT I M (FLUVIRIN) 05/26/2013,05/15/2013 INFLUENZA S6A2-71, HISTORIC VACCINE 05/04,05/20/2022,05/10/2021,2020 INFLUENZA VACCINE, ADJUVANTE D, [...] Sign Reading Time Taken Comments Blood Pressure 146/79 05/23/2025 1:43 PM CDT patient did not take medicine. Pulse 88 05/23/2025 1:43 PM CDT Temperature 36.4 C (97.6 F) 05/10/2024 6:40 PM CDT Respiratory Rate 16 05/11/2025 1:18 PM CDT Oxygen Saturation 97% 05/23/2025 1:4 3 PM CDT Inhaled Oxygen Concentration - - Weight 91.6 kg (202 lb) 05/23/2025 1:43 PM CDT Height 144.8 cm (4' 9) 05/11/2025 1:18 PM CDT Body Mass Index 43.71 05/11/2025 1:18 PM CDT Plan of Treatment Upcoming Encounters Date Type Department Care Team (Latest Contact Info) Description 06/09/2025 9:30 AM SOCK AND STOCKING IRONER Procedure visit [facility] [address] [phone] Duncan Sharp [address] [phone] 06/09/2025 12:05 PM SOCK AND STOCKING IRONER Hospital Encounter [facility] - [facility] [address] [place] [address] Duncan Sharp [address] [phone] Surgery General 06/09/2025 12:05 PM SOCK AND STOCKING IRONER - 06/09/2025 3:25 PM SOCK AND STOCKING IRONER Surgery [facility] - [facility] [address] [place] [address] Duncan Sharp [address] [phone] REVISION OF TIBIOTALCALCANEAL ARTHRODESIS OF RIGHT ANKLE AND SUBTALAR JOINTS, RIGHT ANKLE HARDWARE REMOVAL 06/17/2025 10:30 AM SOCK AND STOCKING IRONER Office Visit [facility] Orthoped[facility] [address] [place] [address] Aleksandr Ambrose PA-C [address] [place] [phone] 06/24/2025 10:30 AM SOCK AND STOCKING IRONER Office Visit [facility] Orthopedics [address] [place] [address] Aleksandr Ambrose PA-C [address] [place] [phone] 07/20/2025 10:50 AM SOCK AND STOCKING IRONER Office Visit [facility] [address] [place] [address] Duncan Sharp DO [address] [place] [phone] 11/23/2025 2:00 PM CDT Office Visit [facility] - Neurology [address] [place] [address], [place] [phone] Katie Augustin APRN-JIG BORER [address] [place] [address] [place] [phone] Scheduled Procedures Name Priority Associated Diagnoses Date/Ti me ARTHRODESIS/FUSION PANTALAR M96.0, Z96.9, Z98.890 06/09/2025 12:05 PM SOCK AND STOCKING IRONER Health Maintenance Due Date Last Done Comments [...] 2025 3, 05/20/2022, 05/20/2022, Additional history exists LIPID TESTING 02/15/2028 02/14/2023 SCREENING FOR DIABETES 05/11/2028 5, 03/17/2024, 10/20/2022, Additional history exists DTAP/TDAP/TD VACCINES (3 - [...] per facility. Medical Devices Implanted Type Area Well Logging Captain Device Identifier Shelf Expiration Date Model / Serial / Lot Mri Unsafe Moreira Neuro Stimulator Neuro Stimulator [id number] / / Description:per manual MRI u nsafe 3.5 Mm Lateral Distal Fibula Plate Implanted:Qt y: 1 on 09/22/2021 by Gonzales Rey DO at [facility] Plate Right: Ankle [employer] [id number] / / Screw 3.5mm 14mm Slf-Tap Cortx Evos Strl Implanted:Qt y: 4 on 09/22/2021 by Gonzales Rey, DO at [facility] Screw Right: Ankle [employer] [id number] / / Screw 3.5mm 48mm Slf-Tap Cortx Evos Strl Implanted:Qt y: 1 on 09/22/2021 by Gonzales Rey, DO at [facility] Screw Right: Ankle [employer] [id number] / / Screw 3.5mm 55mm Slf-Tap Cortx Evos Strl Implanted:Qt y: 1 on 09/22/2021 by Gonzales Rey, DO at [facility] Screw Right: Ankle [employer] [id number] / / Fully Threaded 4.7 Mm Osteopenia Screw Implanted:Qt y: 1 on 09/22/2021 by Gonzales Rey, DO at [facility] Screw Right: Ankle [employer] [id number] / / 3.5 Mm Locking Screw Implanted:Qt y: 1 on 09/22/2021 by Gonzales Rey, DO at [facility] Screw Right: Ankle [employer] [id number] / / Kit Bngf 3cc Aug Inj Implanted:Qt y: 1 on 10/14/2022 by Amy Mondragon MD at [facility] Right: Ankle [employer] 05/03/2023 [id number] / / [id number] Kit Bngf 3cc Aug Inj Implanted:Qt y: 1 on 10/14/2022 by Amy Mondragon MD at [facility] Right: Ankle [employer]ount [employer] 05/03/2023 [id number] / / [id number] Graft Bone Canc 4-9.5mm 15cc Frzdr Chp Implanted:Qt y: 1 on 10/14/2022 by Amy Mondragon MD at [facility] Right: Ankle [employer] 08/19/2026 [id number] / / [id number] Right Small Nail Implanted:Qt y: 1 on 10/14/2022 by Amy Mondragon MD at [facility] Right: Ankle [employer] 05/20/2030 [id number] / / [id number] Screw 5mm 25mm Valor Ti Hindfoot Fsn Sys Implanted:Qt y: 1 on 10/14/2022 by Amy Mondragon MD at [facility] Right: Ankle [employer]mnisens [employer] Inc 07/16/2030 [id number] / / [id number] Screw 5mm 30mm Valor Ti Hindfoot Fsn Sys Implanted:Qt y: 1 on 10/14/2022 by Amy Mondragon MD at [facility] Right: Ankle [employer] 08/23/2030 [id number] / / [id number] 5x40mm Screw Implanted:Qt y: 1 on 10/14/2022 by Amy Mondragon MD at [facility] Right: Ankle Wrnch Inc [id number] 07/16/2030 [id number] / / [id number] 5x70mm Screw Implanted:Qt y: 1 on 10/14/2022 by Amy Mondragon MD at [facility] Right: Ankle Wrnch Inc [id number] 01/16/2030 [id number] / / [id number] Screw 3.5mm 18mm T10 Ft Strdr Nonster Implanted:Qt y: 1 on 10/14/2022 by Amy Mondragon MD at [facility] Right: Ankle [employer] [id number] / / Screw 3.5mm 50mm T10 Ft Strdr Nonster Implanted:Qt y: 1 on 10/14/2022 by Amy Mondragon MD at [facility] Right: Ankle [employer] [id number] / / Graft Bone Ignite Dbm 20ml Pwr Mx Inj - [id number] Implanted:Qt y: 1 on 10/14/2022 by Amy Mondragon MD at [facility] Right: Ankle [employer] 03/18/2026 [id number] / [id number] / Lead Nrstm Inspr 3 Eltrd Cuf Tnl Pelon - [id number] Implanted:Qt y: 1 on 05/10/2024 by Sriram Simon MD at [facility] Right: Neck [employer] [id number] 06/29/2026 [id number] / [id number] / Lead Ns Resp - [id number] Implanted:Qt y: 1 on 05/10/2024 by Sriram Simon MD at [facility] Right: Chest [employer] [id number] 09/15/2026 [id number] / [id number] / Gntr Nrstm - [id number] Implanted:Qt y: 1 on 05/10/2024 by Sriram Simon MD at [facility] Right: Chest [employer] [id number] 07/14/2026 3028 / [id number] / Explanted Type Area Well Logging Captain Device Identifier Shelf Expiration Date Model / Serial / Lot Fully Threaded 4.7 Mm Osteopenia Screw Explanted:Qty: 1 on 09/22/2021 by Gonzales Rey DO at [facility] Screw Right: Ankle [employer] [id number] / / Wire K 1.6mm 150mm Troc Pnt Ss Fx Strl Explanted:Qty: 2 on 09/22/2021 by Gonzales Rey DO at [facility] Wire Right: Ankle [employer] [id number] / / Procedures Procedure Name Priority Date/Time Associated Diagnosis Comments COMPREHENSIVE METABOLIC PANEL STAT 05/11/2025 1:28 PM CDT Preop testing EKG 12-LEAD Routine 05/11/2025 1:19 PM CDT Preop testing from Last 3 Months Results * (ABNORMAL) COMPREHENSIVE METABOLIC PANEL (05/11/2025 1:28 PM CDT) [facility] Glucose 120(H) 70 - 99 mg/dL 05/11/2025 1:53 PM CDT [facility] Sodium 137 136 - 145 mmol/L 05/11/2025 1:53 PM [facility] Potassium 4.2 3.5 - 5.1 mmol/L 05/11/2025 1:53 PM [facility] Chloride 108(H) 98 - 107 mmol/L 05/11/2025 1:53 PM [facility] CO2 20(L) 22 - 29 mmol/L 05/11/2025 1:53 PM [facility] Calcium 8.9 8.4 - 10.4 mg/dL 05/11/2025 1:53 PM [facility] Anion Gap 9 6 - 16 mmol/L 05/11/2025 1:53 PM T -[facility] BUN 21 7 - 26 mg/dL 05/11/2025 1:53 PM [facility] Creatinine 0.68 0.50 - 1.20 mg/dL 05/11/2025 1:53 PM T -[facility] Alkaline Phosphatase 141 40 - 150 U/L 05/11/2025 1:53 PM T -[facility] ALT 9 6 - 57 U/L 05/11/2025 1:53 PM T -[facility] AST 20 10 - 48 U/L 05/11/2025 1:53 PM T -[facility] Protein Total 6.9 6.4 - 8.3 gm/dL 05/11/2025 1:53 PM T -[facility] Albumin 4.0 3.1 - 4.5 gm/dL 05/11/2025 1:53 PM T -[facility] Bilirubin Total 0.2 0.2 - 1.2 mg/dL 05/11/2025 1:53 PM T -[facility] eGFR by CKD-EPI >90 >=90 mL/min/1.7 3 m2 05/11/2025 1:53 PM [facility] Comment:Estimated Glomerular Filtration Rate (eGFR) calculated using the CKD-EPI Creatinine Equation (2020), per the National Kidney Foundation and [place] Society of Nephrology recommendations. Blood BLOOD SPECIMEN / Unknown Lab Venipuncture / Unknown 05/11/2025 1:28 PM CDT 05/11/2025 1:33 PM CDT Cassandra Chauhan INTERNAL CONTROLS CONSULTANT-JIG BORER LAB - CHEMISTRY ORDERA BLES Final Result [facility] [address] [place] [address] * EKG 12-Lead (05/11/2025 1:19 PM CDT) Ventricular Rate 68 BPM [facility] Atrial Rate 68 BPM [facility] P-R Interval 128 ms [facility] QRS Duration ms 118 ms [facility] Q-T Interval ms 452 ms [facility] QTC Calculation (Bezet) 480 ms [facility] Calculated P [place] 23 degrees [facility] Calculated R [place] -26 degrees [facility] Calculated T [place] 7 degrees [facility] Interpretation EKG Sinus rhythm with Premature atrial complexes Right bundle branch block Abnormal ECG No previous ECGs available Confirmed by SAGAR RANDLE MD ([id number]) on 05/12/2025 4:08:23 PM [facility] 05/11/2025 1:19 PM CDT 05/12/2025 4:08 PM CDT Cassandra Chauhan INTERNAL CONTROLS CONSULTANT-JIG BORER ECG ORDERABLES Edited Result - Final Performing Organization Address City/[facility]/ZIP Co de Phone Number [facility] from Last 3 Months Insurance MEDICARE Member Subscriber Plan / Payer (Ef fective 2018-Present) Name:Alisa Shukla Member ID:[id number] Relation to Subscriber:Self Name:Alisa Shukla Subscriber ID:[id number] Payer ID:Not on file Group ID:Not on file Type:Medicare Address: [place] [phone] [facility] MEDICARE [facility] Advance Directives * Full Code (Latest Code Status on File) Date Activated Date Inactivated Comments 10/14/2022 12:56 PM 10/15/2022 3:28 PM * Full Code Date Activated Date Inactivated Comments 09/21/2021 11:17 AM 09/25/2021 3:39 PM Care Teams Eyewear Manufacturing Tech Relationship Specialty Start Date End Date Dayanna Aj APRN-ARIEL [address] [place] [phone] PCP - General Nurse Practitioner Family 10/08/23
--- OUTSIDE RECORDS SUMMARY | 2025-06-07 16:57 | XMS_ITS | Encounter Summary ---
Author Organization [facility] Address [address] [place] [address] Care Team Providers Care Disability Attorney Name Role Phone Dayanna Aj Adam SADDLE STITCH OPERATOR-SHIPPING LEAD PERSON Primary Care Provider Reason for Visit * Reason Onset Date Comments Letter 05/02/2025 Question 05/02/2025 Encounter Details Date Type Department Care Team (Late st Contact Info) Description 05/02/2025 Telephone [facility] Orthopedics [address] [address] Duncan Sharp DO [facility] [address] [phone] Letter; Question Social History Tobacco Use Types Packs/Day Years [...] Entry Date Author No 05/10/2024 6:40 PM MARLNEAT Kevin Stokes RN documented in this encounter Miscellaneous Notes * Telephone Encounter - Kenyatta Oviedo RMA - 05/03/2025 9:54 AM CDT Faxed note * Telephone Encounter - Jud Delaney - 05/02/2025 3:14 PM CDT Who is calling? Patient What is the reason for call? Patient is scheduled for R ankle surgery 06/09 and is needing a letter faxed to be exempt from jury duty on 06/13. In letter need to be patient name, address, , jury # and electronic signature #. (f) [phone] Jury # [id number] Electronic signature #- [id number] Expected Response from the Clinic? ( ex. Call back, etc..) call back requested please Did you notify caller it would take 24-48 hours for the office to get back to them? YES documented in this encounter Plan of Treatment Upcoming Encounters Date Type Department Care Team (Latest Contact Info) Description 06/09/2025 9:30 AM TELECOMMUNICATIONS PROJECT MANAGER Procedure visit [address] [phone] Jeremyvianey Duncan, [address] [phone] 06/09/2025 12:05 PM TELECOMMUNICATIONS PROJECT MANAGER Hospital Encounter [facility] Op [address] [place] [address] Duncan Sharp [address] [phone] Surgery General 06/09/2025 12:05 PM TELECOMMUNICATIONS PROJECT MANAGER - 06/09/2025 3:25 PM TELECOMMUNICATIONS PROJECT MANAGER Surgery [facility] - [facility] Op [address] [place] [address] JeremyDuncan winters, [address] [phone] REVISION OF TIBIOTALCALCANEAL ARTHRODESIS OF RIGHT ANKLE AND SUBTALAR JOINTS, RIGHT ANKLE HARDWARE REMOVAL 06/17/2025 10:30 AM TELECOMMUNICATIONS PROJECT MANAGER Office Visit [facility] [address] [place] [address] Aleksandr Ambrose PA-C [address] [place] [phone] 06/24/2025 10:30 AM TELECOMMUNICATIONS PROJECT MANAGER Office Visit [facility] [address] [place] [address] Aleksandr Ambrose PA-C [address] [place] [phone] 07/20/2025 10:50 AM TELECOMMUNICATIONS PROJECT MANAGER Office Visit [facility] Orthopedics [address] [place] [address] Duncan SharpDO [address] [place] [address] 11/23/2025 2:00 PM CDT Office Visit [facility] - Neurology [address] [place] [address], [place] [phone] Katie Augustin APRN-ARIEL [address] [place] [address] [place] [phone] Scheduled Procedures Name Priority Associated Diagnoses Date/Ti me ARTHRODESIS/FUSION PANTALAR M96.0, Z96.9, Z98.890 06/09/2025 12:05 PM TELECOMMUNICATIONS PROJECT MANAGER documented as of this encounter Goals Goal [...] on filedocumented in this encounter Care Teams Disability Attorney Relationship Specialty Start Date End Date Dayanna Aj APRN-SHIPPING LEAD PERSON [address] [place] [phone] PCP - General Nurse Practitioner Family 10/08/23 documented as of this encounter
[2025-06-07 19:23] LABS: Free T4 Free Thyroxine 0.94 ng/dL (0.78-2.19)
[2025-06-07 19:37] LABS: Thyroid Stimulating Hormone Reflex 39.300 uIU/mL (0.465-4.68)
[2025-06-07 22:22] LABS: Free T4 Free Thyroxine Reflex 0.86 ng/dL (0.78-2.19)
[2025-06-08 13:39] LABS: Total Triiodothyronine (T3) 1.19 NG/ML (0.82-1.58)
== END 2025-06-07 16:22 | disposition home or self-care (01) ==
LOC: ANHLAB 16:23
PROVIDERS: PCP Nurse Practitioner Family; Visit Provider Nurse Practitioner Family
DX: E03.9 Hypothyroidism, unspecified (principal); Z13.29 Encounter for screening for other suspected endocrine disorder
CPT/HCPCS: 36415; 84439; 84443; 84480

== ENCOUNTER 2025-06-22 12:02 | Emergency (ER) | payer MEDICARE, SELFPAY ==
[2025-06-22] VITALS (9 sets, daily range): BP systolic 141–184; BP diastolic 68–98; PULSE 83–104; RESP 14–20; TEMP 36.8; O2SAT 94–96
--- NOTE | ~2025-06-22 | CT_ITS ---
EXAMINATION: CT brain wo con, 06/22/2025 14:25 BAG SEALER HISTORY: dizziness COMPARISON: No comparisons available. Technique: Axial images obtained of the brain without contrast. One or more of the following dose reduction techniques were used: automated exposure control, adjustment of the mA and/or kV according to patient size, use of iterative reconstruction technique. Findings: No acute infarct or parenchymal hemorrhage. No abnormal mass or mass effect. No midline shift. No extra-axial fluid collections. No hydrocephalus. Mastoid air cells unremarkable. Sinuses and orbits unremarkable. No acute fracture. No significant facial or scalp soft tissue swelling evident. No radiopaque foreign body is seen. Impression: 1.No acute intracranial abnormality. Reviewed, dictated and finalized at location P. SEALER Impression: 1.No acute intracranial abnormality.
--- NOTE | 2025-06-22 13:59 | ED_ITS ---
HPI - General Adult General Chief complaint: Dizziness <AUTUMN Delgadillo - Last Filed: 06/22/25 14:12> Stated complaint: dizziness, nausea <AUTUMN Delgadillo - Last Filed: 06/22/25 14:12> Time Seen by Provider: 06/22/25 14:58 <AUTUMN Delgadillo - Last Filed: 06/22/25 14:12> Focused HPI: 70 year old female presenting with dizziness and nausea early this morning that have currently improved. Symptoms worse with positional changes. Denies vomiting, diarrhea, abdominal pain, fevers/chills, sensitivity to light/sound, numbness/tingling, or chest pain/SOB. No hx of recent trauma. GENERAL: Well-appearing, well-nourished, and in no acute distress. HEAD: Normocephalic, atraumatic. CHEST: Clear to auscultation. ?No respiratory distress. HEART: Regular rate and rhythm.? NEURO: ?Alert and oriented x3. Intact [id number] bilaterally. No pronator drift or facial droop. Patient screened in triage and initial orders placed.? ?Additional care and disposition to be based upon?diagnostic testing and treatment. <AUTUMN Delgadillo - Last Filed: 06/22/25 14:12> History of Present Illness HPI narrative: I agree with the above HPI <Og Nobles MD - Last Filed: 06/22/25 21:31> Related Data Home medications: Home Medications ?Medication ?Instructions ?Recorded ?Confirmed ?Last Taken ?Type albuterol sulfate 90 mcg/actuation 90 mcg inhalation P RN PRN 06/16/19 01/21/25 01/06/25 History aerosol inhaler Bronchospasm carbidopa 25 mg-levodopa 100 mg 1 tablet PO TID jared sons 06/16/19 01/21/25 01/07/25 History tablet hydrocodone 7.5 mg-acetaminophen 1 tablet PO Q6H PRN P ain 06/16/19 01/21/25 Unknown History 325 mg tablet Allergy Relief (loratadine) 10 mg BYMOUTH DAILY 01/21/25 01/06/25 History clonazepam 1 mg tablet 1 mg PO DAILY 09/03/2301/2101/06/25 History oxcarbazepine 150 mg tablet 150 mg PO BID 11/11/2401/06/25 History (Trileptal) carbidopa ER 50 mg-levodopa 200 mg 1 tablet PO BID 01/21/25 01/07/25 History tablet,extended release <AUTUMN Delgadillo - Last Filed: 06/22/25 14:12> Allergies/adverse reactions: Allergies Allergy/AdvReac Type Severity Reaction Status Date / Time pregabalin Allergy Intermediate hand/feet/leg Verified 01/20/25 15:06 swelling lorazepam (From Ativan) AdvReac Mild other Verified 01/20/25 15:06 adhesive tape Allergy Severe Blister Uncoded 01/20/25 15:06 lorazepam Allergy Severe body Uncoded 01/20/25 15:06 spasms and anxiety attack <AUTUMN Delgadillo - Last Filed: 06/22/25 14:12> Review of Systems 2 Review of Systems: All systems reviewed & are unremarkable except as noted in HPI and below <Og Nobles MD - Last Filed: 06/22/25 21:31> [facility] Past Medical History Medical History: Medical History COSTA on CPAP Vitamin D deficiency Obese Subcutaneous mass Pilar cyst Hidradenitis Epidermal inclusion cyst Hypothyroidism Allergies Depression GERD with apnea Hepatitis A Peripheral neuropathy Restless leg <AUTUMN Delgadillo - Last Filed: 06/22/25 14:12> Surgical History Surgical History: Surgical History H/O colonoscopy with polypectomy H/O lumpectomy Status post ORIF of fracture of ankle times 2 Hx of cholecystectomy History of right salpingo-oophorectomy H/O dilation and curettage History of tonsillectomy H/O arthroscopic knee surgery History of total bilateral knee replacement S/P left rotator cuff repair H/O section History of orthopedic surgery <AUTUMN Delgadillo - Last Filed: 06/22/25 14:12> Family History Family History: Family History Mother Parkinson disease Family history of osteoarthritis Breast cancer Other Muscular dystrophy Grandparent Colon cancer Father Diabetes mellitus <AUTUMN Delgadillo - Last Filed: 06/22/25 14:12> Social History Social History: Social History Social History: 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 She designated herself is a full code. 12/08/24 Very confident with medical forms Smoking status: Never smoker Alcohol intake: current Alcohol use details: rarely Substance use: never Substance use type: does not use Do You Feel Safe in your Home?: Yes Lack of Transportation: No Lack of Food: Never True Current Housing: I Have Housing Concerned About Future Housing: No Difficulty Paying Gas/Electric Bills: No Difficulty Paying for Meds: No Currently Unemployed: No Education: Bachelor's Degree Difficulty w/ Childcare or Family Care: No Living arrangements: with family Additional living arrangements comments: Her Elliott is a durable power employment attorney. She has 2 children. 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/education comments: [employer] embedded linux engineer Gender identity (if verbalized by the patient): Female Spiritual care concerns: No Agree to blood products: Yes <AUTUMN Delgadillo - Last Filed: 06/22/25 14:12> Exam 2 Narrative: APPEARANCE: Well appearing, no pain, no distress, well-nourished. HEAD: normocephalic, atraumatic. EYES: PERRLA/EOMI, conjunctivae clear. NOSE: Normal no drainage EARS:TMS clear with good light reflex. THROAT: Pharynx clear, no exudate. NECK: Supple. No adenopathy, no masses. RESPIRATORY: Airway patent, respirations nonlabored. Clear to auscultation bilaterally, no rales, rhonchi, wheezing. CARDIOVASCULAR: Regular rate and rhythm without murmurs rubs or gallops. ABDOMINAL: Soft, nontender, nondistended, normal bowel sounds MUSCULOSKELETAL: Moves all extremities. Strength/ROM intact, No edema, No calf tenderness. NEURO: Alert. Cranial nerves II through XII intact. Good gait. Good coordination SKIN: Warm, dry. Normal Color <gO Nobles MD - Last Filed: 06/22/25 21:31> Course Vital Signs Vital signs: Vital Signs Temperature 98.2 F 06/22/25 12:08 Pulse Rate 92 06/22/25 12:08 Respiratory Rate 16 06/22/25 12:08 Blood Pressure 154/89 H 06/22/25 12:08 Pulse Oximetry 95 06/22/25 12:08 Oxygen Delivery Room Air 06/22/25 12:08 Temperature 98.2 F 06/22/25 12:08 Pulse Rate 92 06/22/25 17:16 Respiratory Rate 14 06/22/25 17:16 Blood Pressure 160/68 H 06/22/25 17:16 Pulse Oximetry 95 06/22/25 16:31 Oxygen Delivery Room Air 06/22/25 12:08 <AUTUMN Delgadillo - Last Filed: 06/22/25 14:12> Vital Signs Temperature 98.2 F 06/22/25 12:08 Pulse Rate 92 06/22/25 12:08 Respiratory Rate 16 06/22/25 12:08 Blood Pressure 154/89 H 06/22/25 12:08 Pulse Oximetry 95 06/22/25 12:08 Oxygen Delivery Room Air 06/22/25 12:08 Temperature 98.2 F 06/22/25 12:08 Pulse Rate 92 06/22/25 17:16 Respiratory Rate 14 06/22/25 17:16 Blood Pressure 160/68 H 06/22/25 17:16 Pulse Oximetry 95 06/22/25 16:31 Oxygen Delivery Room Air 06/22/25 12:08 <Og Nobles MD - Last Filed: 06/22/25 21:31> Medical Decision Making MDM Narrative Medical decision making narrative: 70-year-old female present to the emergency department for evaluation for increased dizziness/vertigo. Patient does describe this as a moving sensation. Patient had onset of symptoms approximately 530 this morning but did feel improved and the waiting room but while coming back to her room she had worsening symptoms again. Patient was treated with meclizine and does feel a slight improvement. Patient is currently afebrile with no leukocytosis and a stable hemoglobin 11.9. No acute abnormalities on the patient's. Patient was initially having persistent vertigo symptoms she was mildly orthostatic with a slight increase in her heart rate but no drop in blood pressure. Patient was treated with additional meclizine and a 500 mL fluid bolus and on re-evaluation patient states she does feel improved. Patient was able to demonstrate standing and transferring from chair to wheelchair and patient states that her dizziness was not worsened. Patient states he does feel comfortable plan for discharge home. Patient had been offered admission for vertigo treatment. Patient does prefer to have outpatient follow-up. Pain patient does have a spinal stimulator that is not compatible with an MRI. <Og Nobles MD - Last Filed: 06/22/25 21:31> Differential Diagnosis Differential Diagnosis: Benign positional vertigo, orthostatic hypotension, central vertigo, subdural hematoma, subarachnoid hemorrhage, dehydration <Og Nobles MD - Last Filed: 06/22/25 21:31> Vital Signs Vital Signs: Vital Signs Temperature 98.2 F 06/22/25 12:08 Pulse Rate 92 06/22/25 12:08 Respiratory Rate 16 06/22/25 12:08 Blood Pressure 154/89 H 06/22/25 12:08 Pulse Oximetry 95 06/22/25 12:08 Oxygen Delivery Room Air 06/22/25 12:08 Temperature 98.2 F 06/22/25 12:08 Pulse Rate 92 06/22/25 17:16 Respiratory Rate 14 06/22/25 17:16 Blood Pressure 160/68 H 06/22/25 17:16 Pulse Oximetry 95 06/22/25 16:31 Oxygen Delivery Room Air 06/22/25 12:08 <AUTUMN Delgadillo - Last Filed: 06/22/25 14:12> Vital Signs Temperature 98.2 F 06/22/25 12:08 Pulse Rate 92 06/22/25 12:08 Respiratory Rate 16 06/22/25 12:08 Blood Pressure 154/89 H 06/22/25 12:08 Pulse Oximetry 95 06/22/25 12:08 Oxygen Delivery Room Air 06/22/25 12:08 Temperature 98.2 F 06/22/25 12:08 Pulse Rate 92 06/22/25 17:16 Respiratory Rate 14 06/22/25 17:16 Blood Pressure 160/68 H 06/22/25 17:16 Pulse Oximetry 95 06/22/25 16:31 Oxygen Delivery Room Air 06/22/25 12:08 <Og Nobles MD - Last Filed: 06/22/25 21:31> Lab Data Lab results reviewed: Yes I reviewed the patient's lab results. <Og Nobles MD - Last Filed: 06/22/25 21:31> Result diagrams: 06/22/25 14:46 06/22/25 14:46 <AUTUMN Delgadillo - Last Filed: 06/22/25 14:12> Labs: Lab Results 06/22/25 06/22/25 Range/Units 14:46 15:12 WBC 8.8 (4.5-10.0) K/mm3 RBC 3.91 L (4.2-5.4) M/mm3 Hgb 11.9 L (12.0-15.0) g/dL Hct 37.6 (37.0-47.0) % MCV 96.2 (80-100) fl MCH 30.4 (26-34) pg MCHC 31.6 L (32-36) g/dl RDW 13.2 (11.5-14.5) % Plt Count 389 H (150-375) k/mm3 MPV 8.2 (7.4-10.4) fl Immature Gran % (Auto) 0.5 (0-0.5) % Neut % (Auto) 71.0 (45.5-73.1) % Lymph % (Auto) 17.2 L (18.3-44.2) % [place] % (Auto) 9.7 H (2.6-8.5) % Eos % (Auto) 1.1 (0-4.4) % Baso % (Auto) 0.5 (0.2-1.2) % Lymph # (Auto) 1.52 (0.9-3.2) K/mm3 [place] # (Auto) 0.9 H (0.1-0.6) K/mm3 Eos # (Auto) 0.1 (0-0.3) K/mm3 Baso # (Auto) 0.0 (0.0-0.1) K/mm3 Abs Immat Gran (auto) 0.04 H (0.00-0.031) K/mm3 Absolute Neuts (auto) 6.3 (1.3-6.7) K/mm3 Absolute Nucleated RBC 0.000 (0.0-0.012) K/mm3 Nucleated RBC % 0.0 (0.0-0.2) % Sodium 137 (137-145) mmol/L Potassium 4.2 (3.4-5.0) mmol/L Chloride 100 (98-107) mmol/L Carbon Dioxide 29 (22-30) mmol/L Anion Gap 8 (4-12) mmol/L BUN 21 H (7-17) mg/dL Creatinine 0.77 (0.7-1.0) mg/dL Estim Creat Clear Calc Not Reportable Estimated GFR > 60 (59 - ) Glucose 104 (65-110) mg/dL Calcium 9.1 (8.4-10.2) mg/dL Total Bilirubin 0.5 (0.2-1.3) mg/dL AST 25 (14-36) U/L ALT 9 (6-35) U/L Alkaline Phosphatase 157 H (38-126) U/L Total Protein 7.3 (6.3-8.2) g/dL Albumin 4.4 (3.5-5.1) g/dL Urine Color Yellow (Yellow) Urine Appearance Clear (Clear) Urine pH 6.0 (5.0-9.0) Ur Specific [place] 1.015 (1.001-1.035) Urine Protein Negative (Negative) mg/dL Urine Glucose (UA) Negative (Negative) mg/dL Urine Ketones Negative (Negative) mg/dL Ur Blood (Man) Negative (Negative) Urine Nitrate Negative (Negative) Urine Bilirubin Negative (Negative) Urine Urobilinogen 0.2 (<2.0) mg/dL Leukocyte Esterase Rfl 2+ H (Negative) GENO/UL Urine RBC 0-2 (0-2) /hpf Urine WBC 11-20 H (0-3) /hpf Ur Squamous Epith Cells None seen (Few) /hpf Urine Bacteria None seen /hpf Urine Casts 0-2 <AUTUMN Delgadillo - Last Filed: 06/22/25 14:12> Lab Results 06/22/25 06/22/25 Range/Units 14:46 15:12 WBC 8.8 (4.5-10.0) K/mm3 RBC 3.91 L (4.2-5.4) M/mm3 Hgb 11.9 L (12.0-15.0) g/dL Hct 37.6 (37.0-47.0) % MCV 96.2 (80-100) fl MCH 30.4 (26-34) pg MCHC 31.6 L (32-36) g/dl RDW 13.2 (11.5-14.5) % Plt Count 389 H (150-375) k/mm3 MPV 8.2 (7.4-10.4) fl Immature Gran % (Auto) 0.5 (0-0.5) % Neut % (Auto) 71.0 (45.5-73.1) % Lymph % (Auto) 17.2 L (18.3-44.2) % [place] % (Auto) 9.7 H (2.6-8.5) % Eos % (Auto) 1.1 (0-4.4) % Baso % (Auto) 0.5 (0.2-1.2) % Lymph # (Auto) 1.52 (0.9-3.2) K/mm3 [place] # (Auto) 0.9 H (0.1-0.6) K/mm3 Eos # (Auto) 0.1 (0-0.3) K/mm3 Baso # (Auto) 0.0 (0.0-0.1) K/mm3 Abs Immat Gran (auto) 0.04 H (0.00-0.031) K/mm3 Absolute Neuts (auto) 6.3 (1.3-6.7) K/mm3 Absolute Nucleated RBC 0.000 (0.0-0.012) K/mm3 Nucleated RBC % 0.0 (0.0-0.2) % Sodium 137 (137-145) mmol/L Potassium 4.2 (3.4-5.0) mmol/L Chloride 100 (98-107) mmol/L Carbon Dioxide 29 (22-30) mmol/L Anion Gap 8 (4-12) mmol/L BUN 21 H (7-17) mg/dL Creatinine 0.77 (0.7-1.0) mg/dL Estim Creat Clear Calc Not Reportable Estimated GFR > 60 (59 - ) Glucose 104 (65-110) mg/dL Calcium 9.1 (8.4-10.2) mg/dL Total Bilirubin 0.5 (0.2-1.3) mg/dL AST 25 (14-36) U/L ALT 9 (6-35) U/L Alkaline Phosphatase 157 H (38-126) U/L Total Protein 7.3 (6.3-8.2) g/dL Albumin 4.4 (3.5-5.1) g/dL Urine Color Yellow (Yellow) Urine Appearance Clear (Clear) Urine pH 6.0 (5.0-9.0) Ur Specific [place] 1.015 (1.001-1.035) Urine Protein Negative (Negative) mg/dL Urine Glucose (UA) Negative (Negative) mg/dL Urine Ketones Negative (Negative) mg/dL Ur Blood (Man) Negative (Negative) Urine Nitrate Negative (Negative) Urine Bilirubin Negative (Negative) Urine Urobilinogen 0.2 (<2.0) mg/dL Leukocyte Esterase Rfl 2+ H (Negative) GENO/UL Urine RBC 0-2 (0-2) /hpf Urine WBC 11-20 H (0-3) /hpf Ur Squamous Epith Cells None seen (Few) /hpf Urine Bacteria None seen /hpf Urine Casts 0-2 <Og Nobles MD - Last Filed: 06/22/25 21:31> Imaging Data Radiologist's impression: Impressions Head CT 06/22/25 14:40 Impression: 1.No acute intracranial abnormality. <Og Nobles MD - Last Filed: 06/22/25 21:31> Discharge Plan Discharge Clinical Impression: Vertigo <AUTUMN Delgadillo - Last Filed: 06/22/25 14:12> Patient Disposition: Home <AUTUMN Delgadillo - Last Filed: 06/22/25 14:12> Condition: Stable <AUTUMN Delgadillo - Last Filed: 06/22/25 14:12> Instructions: Antibiotic Form, Vertigo (ED) <AUTUMN Delgadillo - Last Filed: 06/22/25 14:12> Additional Instructions: Meclizine as directed for vertigo. Continue to drink plenty of fluids. If you have any worsening symptoms then please call or return to the emergency department. Have close follow-up with your primary care physician. <AUTUMN Delgadillo - Last Filed: 06/22/25 14:12> Patient Language: Burkinan <AUTUMN Delgadillo - Last Filed: 06/22/25 14:12> Prescriptions: New meclizine 25 mg tablet 25 mg PO BID PRN (Reason: dizziness) 7 Days Qty: 14 0RF No Action benztropine 1 mg tablet 1 mg PO ONCE PRN (Reason: take at onset of abnormal facial movements) Qty: 5 0RF clonazepam 1 mg tablet 1 mg PO DAILY oxcarbazepine [Trileptal] 150 mg tablet 150 mg PO BID ondansetron 4 mg tablet,disintegrating 4 mg PO Q8H PRN (Reason: nausea and vomiting) Qty: 60 2RF hydrocodone-acetaminophen 7.5-325 mg tablet 1 tablet PO Q6H PRN (Reason: Pain) albuterol sulfate 90 mcg/actuation HFA aerosol inhaler 90 mcg INHALATION PRN PRN (Reason: Bronchospasm) Rx Instructions: 2 puffs every 4 hours carbidopa-levodopa 25-100 mg tablet 1 tablet PO TID Allergy Relief (loratadine) 10 mg BYMOUTH DAILY carbidopa-levodopa 50-200 mg tablet extended release 1 tablet PO BID bupropion HCl 300 mg tablet extended release 24 hr 300 mg PO QAM Qty: 90 1RF dicyclomine 20 mg tablet 20 mg PO BID Qty: 180 1RF omeprazole 40 mg capsule,delayed release(DR/EC) 40 mg PO DAILY Qty: 90 3RF montelukast 10 mg tablet 10 mg PO DAILY Qty: 90 3RF losartan 50 mg tablet 50 mg PO DAILY Qty: 90 1RF potassium chloride [Klor-Con M20] 20 mEq tablet,ER particles/crystals 20 meq PO DAILY Qty: 90 1RF gabapentin 300 mg capsule 300 mg PO BID Qty: 180 1RF duloxetine 60 mg capsule,delayed release(DR/EC) 60 mg PO DAILY Qty: 90 1RF levothyroxine [Levoxyl] 100 mcg tablet 100 mcg PO DAILY Qty: 30 1RF <AUTUMN Delgadillo - Last Filed: 06/22/25 14:12> Follow-up/Referrals: Dayanna Aj APRN [Primary Care Provider, Family Practice] <AUTUMN Delgadillo - Last Filed: 06/22/25 14:12>
[2025-06-22] MEDS: MECLIZINE HCL 25 MG TABLET PO ×2 (14:26→16:43)
[2025-06-22 14:52] LABS: Hematocrit 37.6 % (37.0-47.0); Hemoglobin 11.9 g/dL (12.0-15.0); Immature Granulocyte Percent A 0.5 % (0-0.5); Lymphocytes Absolute Auto 1.52 K/mm3 (0.9-3.2); Mean Corpuscular HGB Conc 31.6 g/dl (32-36); Mean Corpuscular Hemoglobin 30.4 pg (26-34); Mean Corpuscular Volume 96.2 fl (80-100); Nucleated Red Blood Cells Absolute Auto 0.000 K/mm3 (0.0-0.012); Nucleated Red Blood Cells Perc 0.0 % (0.0-0.2); Platelet Count Result 389 k/mm3 (150-375); Red Blood Count 3.91 M/mm3 (4.2-5.4); White Blood Count 8.8 K/mm3 (4.5-10.0)
[2025-06-22 15:05] LABS: Alanine Aminotransferase 9 U/L (6-35); Albumin Level 4.4 g/dL (3.5-5.1); Alkaline Phosphatase 157 U/L (38-126); Anion Gap 8 mmol/L (4-12); Aspartate Amino Transferase 25 U/L (14-36); Bilirubin,Total 0.5 mg/dL (0.2-1.3); Blood Urea Nitrogen 21 mg/dL (7-17); Calcium 9.1 mg/dL (8.4-10.2); Carbon Dioxide 29 mmol/L (22-30); Chloride 100 mmol/L (98-107); Estimated Glomerular Filt Rate > 60; Glucose 104 mg/dL (65-110); Potassium 4.2 mmol/L (3.4-5.0); Sodium 137 mmol/L (137-145); Total Protein 7.3 g/dL (6.3-8.2)
[2025-06-22 15:20] LABS: Non Pathogenic Casts 0-2
[2025-06-22 15:29] LABS: Add Urine Microscopic? YES; Appearance Urine Clear (Clear); Glucose Urine UA Negative (Negative); Leukocyte Esterase Ur 2+ LEU/UL (Negative); Nitrate Urine Negative (Negative); Specific Grav Ur 1.015 (1.001-1.035)
[2025-06-22] MEDS: SODIUM CHLORIDE 0.9% IV 500 ML 999 ML IV CONT (16:43)
--- NOTE | 2025-06-22 17:29 | PC.NURSE ---
patient was able to stand and transfer from bed to chair with walker and stand from chair to bed. patient was able to sit back into chair again; stated this is what they are comfortable with at home, VIVIAN Nobles updated.
--- OUTSIDE RECORDS SUMMARY | 2025-06-22 17:32 | XMS_ITS | Clinical Summary ---
Author Organization [facility] Address [address] [place] [address] Care Team Providers Care Warp Tension Tester Name Role Phone Dayanna Aj Adam LUCIA-HEATING AND VENTILATING WORKER Primary Care Provider Source Comments [facility],non-owned Affiliates and Associated Physician Practices is amultiple site organization consisting of ambulatory clinics and hospital sitesin [place], [place], [place] and [place]. This disclosure is being madepursuant to the Care Everywhere program and may not contain all information available regarding this patient. Last updated 18.[facility]brain Allergies Active Allergy Reactions Criticality Noted Date Comments Lisinopril Cough 06/16/2024 Lorazepam Psychiatric Medium 05/19/2023 I get weird with it Pregabalin Swelling High 09/21/2021 Skin Adhesives Rash Medium 10/11/2022 Skin peels off; Paper tape ok Medications * Be aware that medications may not be up to date on this document. Alwaysverify current medications with the patient. loratadine (Claritin) 10 MG tablet Take 1 (one) tablet by mouth once daily Active omeprazole (PriLOSEC) 40 MG capsule Take 1 (one) capsule by mouth daily before breakfast Active albuterol HFA (ProAir HFA) 108 (90 Base) MCG/ACT inhaler Inhale 2 (two) puffs by mouth every 6 hours as needed Active Probiotic Product (probiotic daily) capsule Take by mouth every 7 days (once a week) 50 billion Active DULoxetine (Cymbalta) 60 MG capsule Take 1 (one) capsule by mouth once daily 11/18/19 22 Active montelukast (Singulair) 10 MG tablet Take 1 (one) tablet by mouth once daily 11/01/19 22 Active HYDROcodone-acet aminophen ([place]) 7.5-325 MG tablet Take 1 (one) tablet by mouth every 6 hours as needed for Pain Active Klor-Con M20 20 MEQ tablet Take 1 (one) tablet by mouth once daily 02/06/20 23 Active amoxicillin (Amoxil) 500 MG capsule Take 4 (four) capsules by mouth 12 hours prior to procedure and 1 hour prior to procedure Dental visit 08/06/19 24 Active acetaminophen (Tylenol) 325 MG tablet Take 2 (two) tablets by mouth every 6 hours as needed for Fever or Pain Maximum allowable Acetaminophen amount = 4 Grams (4000 mg) / 24 hours. 05/10/20 24 Active losartan (Cozaar) 25 MG tabletIndication s:Essential hypertension Take 1 (one) tablet by mouth once daily 90 tablet 3 06/16/20 24 Active levothyroxine (Synthroid) 100 MCG tablet Take 1 (one) tablet by mouth daily before breakfast 05/27/20 24 Active buPROPion XL 24hr (Wellbutrin-XL) 300 MG tablet Take 1 (one) tablet by mouth every morning 07/07/20 24 Active clonazePAM (KlonoPIN) 0.5 MG tablet Take [...] daily 180 tablet 4 05/23/20 25 Active gabapentin (Neurontin) 300 MG capsule Take 1 (one) capsule by mouth 2 times daily 05/23/20 25 Active oxyCODONE-acetam inophen (Percocet) 5-325 MG tabletIndication s:Pain Take 1 (one) tablet by mouth every 6 hours as needed for Pain Reasons: Pain 28 tablet 06/10/20 25 Active hydrOXYzine pamoate (Vistaril) 25 MG capsuleIndicatio ns:Pain Take 1 (one) capsule by mouth 3 times daily as needed for Anxiety (Pain) Reasons: Pain 30 capsule 06/10/20 25 Active aspirin EC (Ecotrin) 81 MG tabletIndication s:DVT prophylaxis Take 1 (one) tablet by mouth 2 times daily with morning and evening meal for 42 days Reasons: DVT prophylaxis 84 tablet 06/10/20 25 025 Active polyethylene glycol 3350 (Miralax) 17 g packet Take 17 (seventeen) g by mouth once daily 30 packet 1 06/14/20 25 Active docusate sodium (Colace) 100 MG capsule Take 1 (one) capsule by mouth 2 times daily 30 capsule 1 06/13/20 25 Active ferrous sulfate 325 (65 FE) MG tablet Take 1 (one) tablet by mouth once daily Discontin ued(List Clean-Up) [place]-3 Fatty Acids (fish oil) 1000 MG capsule Discontin ued(List Clean-Up) SUPER B COMPLEX/C PO Take 1 tablet by mouth 2 times daily Discontin ued(List Clean-Up) Multiple Vitamins-Mineral s (HAIR SKIN NAILS PO) 025 Discontin ued(List Clean-Up) magnesium 250 MG tablet Take 1 (one) tablet by mouth 2 times daily Discontin ued(List Clean-Up) vitamin D3 (Cholecalciferol ) 25 MCG (1000 UNITS) tablet Take 2 (two) tablets by mouth once daily 025 Discontin ued(List Clean-Up) nystatin (Mycostatin) 938107 UNIT/GM cream 04/22/20 23 025 Discontin ued(List Clean-Up) benztropine (Cogentin) 1 MG tablet Take 1 (one) tablet by mouth once daily 11/06/2 025 Discontin ued(List Clean-Up) vitamin D, ergocalciferol, (Drisdol) 1.25 MG (10500 UT) capsule 10/09/19 24 025 Discontin ued(List Clean-Up) lisinopril (Prinivil; Zestril) 10 MG tablet Take 1 (one) tablet by mouth once daily 03/18/20 24 025 Discontin ued(List Clean-Up) ibuprofen (Motrin) 600 MG tablet Take 1 (one) tablet by mouth every 6 hours as needed for Pain 05/10/20 24 025 Discontin ued(List Clean-Up) oxyCODONE, immediate release, (Roxicodone) 5 MG tabletIndication s:S/P insertion of hypoglossal nerve stimulator Take 1 (one) tablet by mouth every 6 hours as needed for Pain 12 tablet 05/10/20 24 025 Discontin ued(List Clean-Up) docusate sodium (Colace) 100 MG capsule Take 1 (one) capsule by mouth once daily 20 capsule 05/10/20 24 025 Discontin ued(List Clean-Up) fluticasone propionate (Flonase) 50 MCG/ACT nasal sprayIndications :Allergic rhinitis, unspecified seasonality, unspecified trigger [place] 2 (two) sprays into each nostril once daily 48 g 4 07/22/20 24 025 Discontin ued(List Clean-Up) fexofenadine (Briana) 180 MG tabletIndication s:Allergic rhinitis, unspecified seasonality, unspecified trigger Take 1 (one) tablet by mouth once daily 90 tablet 3 07/22/20 24 025 Discontin ued(List Clean-Up) gabapentin (Neurontin) 100 MG capsuleIndicatio ns:RLS (restless legs syndrome) Take 3 (three) capsules by mouth at bedtime 270 capsule 3 07/22/20 24 025 Discontin ued(List Clean-Up) ondansetron (Zofran) 4 MG tablet Take 1 (one) tablet by mouth every 6 hours as needed for Nausea/Vomiting 025 Discontin ued(List Clean-Up) OXcarbazepine (Trileptal) 150 MG tabletIndication s:Trigeminal neuralgia Take 1 (one) tablet by mouth 2 times daily 180 tablet 4 11/20/19 25 025 Discontin ued(List Clean-Up) Active Problems Problem Noted Date Diagnosed Date [...] Encounters Date Type Department Care Team Description 06/20/2025 Telephone [facility] Orthopedics [address] [place] [address], [address] [phone] Duncan Sharp, Occupational Therapy 06/17/2025 10:30 AM AUTOMATIC QUILLING MACHINE OPERATOR Office Visit [facility] Orthopedics [address] [place] [address] [phone] Aleksandr Ambrose PA-C Post-operative state (Primary Dx) 06/17/2025 10:05 AM AUTOMATIC QUILLING MACHINE OPERATOR Ancillary Procedure [facility] Orthopedics - Radiology [address] [place] [id number] Aleksandr Ambrose PA-C Post-operative state 06/17/2025 10:00 AM AUTOMATIC QUILLING MACHINE OPERATOR Ancillary Procedure [facility] Orthopedics - Radiology [address] [place] [phone] Aleksandr Ambrose PA-C Post-operative state 06/17/2025 Telephone [facility] Orthopedics [address] [place] [address] Duncan Sharp DO Follow-up; Change In Condition/behavior 06/16/2025 Telephone [facility] Orthopedics [address], [address] [phone] Duncan Sharp DO Physical Therapy; Occupational Therapy 06/14/2025 Telephone [facility] Orthopedics [address] [place] [phone] Duncan Sharp DO Home Health 06/09/2025 10:23 AM AUTOMATIC QUILLING MACHINE OPERATOR Anesthesia Event [facility] [address] [place] [phone] Juan Alberto Stephens DO 06/09/2025 9:50 AM AUTOMATIC QUILLING MACHINE OPERATOR - 06/09/2025 1:10 PM AUTOMATIC QUILLING MACHINE OPERATOR Surgery [facility] [address] [place] [phone] Duncan Sharp DO REVISION OF TIBIOTALCALCANEAL ARTHRODESIS OF RIGHT ANKLE AND SUBTALAR JOINTS, RIGHT ANKLE HARDWARE REMOVAL 06/09/2025 7:25 AM AUTOMATIC QUILLING MACHINE OPERATOR - 06/09/2025 11:59 PM AUTOMATIC QUILLING MACHINE OPERATOR Hospital Encounter [facility] Imaging Services - Radiology [address] [place] [phone] Duncan Sharp DO Discharge Disposition: Home or Self Care 06/09/2025 7:09 AM AUTOMATIC QUILLING MACHINE OPERATOR - 06/13/2025 2:14 PM AUTOMATIC QUILLING MACHINE OPERATOR Hospital Encounter [facility] [address] [place] [phone] Duncan Sharp DO Grandhi, Sandhya, MD Surgery Orthopedics Discharge Disposition: Home Health Care Svc 06/09/2025 Travel 05/23/2025 2:00 PM CDT Office Visit [facility] - Neurology [address] [place] [phone] Katie Augustin APRN-CNP RLS (restless legs syndrome) (Primary Dx); RBD (REM behavioral disorder); Trigeminal neuralgia 05/23/2025 Travel 05/11/2025 1:05 PM CDT - 05/11/2025 11:59 PM CDT Hospital Encounter [facility]READMISSTION TEST[facility] [address] [facility], [facility] [address] [place] [address] Duncan Sharp DO Discharge Disposition: Home or Self Care 05/11/2025 Travel 05/02/2025 Telephone [facility] Orthopedics [address], [facility] [address] [place] [address] Duncan Sharp DO Letter; Question from Last 3 Months Immunizations Immunization Administration Dates Next Due INFLUENZA VACCINE, TRIV. (AF LURIA, FLUZONE TRIVALENT; 6MO+) (IIV3) 07/04/2014,05/10/2013 COVID PFIZER 12+YR 30MCG/0.3mL 05/02/2023 COVID PFIZER BIVALENT 12Y+ 30mcg/0.3ML 04/16/2022 Covid Pfizer primary monoval ent 12+ yr 0.3mL Purple cap 05/03/2021,10/10/2020,09/19/2020 FLU VACCINE TRI IIV3 SPLIT I M (FLUVIRIN) 05/26/2013,05/15/2013 INFLUENZA J0Y2-31, HISTORIC VACCINE 05/04,05/20/2022,05/10/2021,2020 INFLUENZA VACCINE, ADJUVANTE D, [...] you have a drink containing alcohol? Never 06/09/2025 Q2: How many drinks containi ng alcohol do you have on a typical day when you are drinking? Patient does not drink Q3: How often do you have si x or more drinks on one occasion? Never 06/09/2025 Overall Financial Resource Strain (CARDIA) Answe r Date Recorded How hard is it for you to pa y for the very basics like food, housing, medical care, and heating? Not hard at all 06/09/2025 [facility] [place] of Occupat ional Health - Occupational Stress Questionnaire Answer Date Recorded Do you feel stress - tense, restless, nervous, or anxious, or unable to sleep at night because your mind is troubled all the time - these days? Only a little 06/09/2025 Hunger Vital Sign Answer Date Recorded Within the past 12 months, y ou worried that your food would run out before you got the money to buy more. Never true 06/09/20 25 Within the past 12 months, t he food you bought just didn't last and you didn't have money to get more. Never true 06/09/2025 PRAPARE - Transportation Answer Date Re corded In the past 12 months, has l ack of transportation kept you from medical appointments or from getting medications? No 01/2025 In the past 12 months, has l ack of transportation kept you from meetings, work, or from getting things needed for daily living? No 06/09/2025 Housing Stability Vital Sign Answer Kian e Recorded In the last 12 months, was t here a time when you were not able to pay the mortgage or rent on time? No 06/09/2025 In the past 12 months, how m any times have you moved where you were living? 1 06/09/2025 At any time in the past 12 m [facility], were you homeless or living in a prison (including now)? No 06/09/2025 Education Answer Date Recorded What is the [...] Sign Reading Time Taken Comments Blood Pressure 157/83 06/13/2025 11:35 AM AUTOMATIC QUILLING MACHINE OPERATOR Pulse 78 06/13/2025 11:35 AM AUTOMATIC QUILLING MACHINE OPERATOR Temperature 36.9 C (98.4 F) 06/13/2025 11:35 AM AUTOMATIC QUILLING MACHINE OPERATOR Respiratory Rate 20 06/13/2025 11:35 AM AUTOMATIC QUILLING MACHINE OPERATOR Oxygen Saturation 97% 06/13/2025 11:35 AM AUTOMATIC QUILLING MACHINE OPERATOR Inhaled Oxygen Concentration - - Weight 92.5 kg (204 lb) 06/09/2025 7:46 AM AUTOMATIC QUILLING MACHINE OPERATOR Height 147.3 cm (4' 10) 06/09/2025 7:46 AM AUTOMATIC QUILLING MACHINE OPERATOR Body Mass Index 42.64 06/09/2025 7:46 AM AUTOMATIC QUILLING MACHINE OPERATOR Plan of Treatment Upcoming Encounters Date Type Department Care Team (Late st Contact Info) Description 06/24/2025 10:30 AM AUTOMATIC QUILLING MACHINE OPERATOR Office Visit [facility] Health Orthopedics [address] [place] [address] Aleksandr Ambrose PA-C [address] [place] [address] [place] [phone] 07/20/2025 10:50 AM AUTOMATIC QUILLING MACHINE OPERATOR Office Visit [facility] Health Orthopedics [address] [place] [address] Duncan Sharp DO [address] [phone] 11/23/2025 2:00 PM CDT Office Visit [facility] - Neurology [address] [place] [address], [place] [phone] Katie Augustin, [employer] NET-HEATING AND VENTILATING WORKER [address] [place] [address] [place] [address] Health Maintenance Due Date Last Done Comments [...] LIPID TESTING 02/15/2028 02/14/2023 SCREENING FOR DIABETES 06/13/2028 5, 06/12/2025, 06/11/2025, Additional history exists DTAP/TDAP/TD VACCINES (3 - [...] per facility. Medical Devices Implanted Type Area Photographs Curator Device Identifier Shelf Expiration Date Model / Serial / Lot Mri Unsafe Moreira Neuro Stimulator Neuro Stimulator [id number] / / Description:per manual MRI u nsafe 3.5 Mm Lateral Distal Fibula Plate Implanted:Qt y: 1 on 09/22/2021 by Gonzales Rey DO at [facility] Plate Right: Ankle [employer] [id number] / / Screw 3.5mm 14mm Slf-Tap Cortx Evos Strl Implanted:Qt y: 4 on 09/22/2021 by Gonzales Rey DO at [facility] Screw Right: Ankle [employer] [id number] / / Screw 3.5mm 48mm Slf-Tap Cortx Evos Strl Implanted:Qt y: 1 on 09/22/2021 by Gonzales Rey DO at [facility] Screw Right: Ankle [employer] [id number] / / Screw 3.5mm 55mm Slf-Tap Cortx Evos Strl Implanted:Qt y: 1 on 09/22/2021 by Gonzales Rey DO at [facility] Screw Right: Ankle [employer] [id number] / / Fully Threaded 4.7 Mm Osteopenia Screw Implanted:Qt y: 1 on 09/22/2021 by Gonzales Rey DO at [facility] Screw Right: Ankle [employer] [id number] / / 3.5 Mm Locking Screw Implanted:Qt y: 1 on 09/22/2021 by Gonzales Rey DO at [facility] Screw Right: Ankle [employer] [id number] / / Kit Bngf 3cc Aug Inj Implanted:Qt y: 1 on 10/14/2022 by Amy Mondragon MD at [facility] Right: Ankle Helishopter 05/03/2023 [id number] / / [id number] Kit Bngf 3cc Aug Inj Implanted:Qt y: 1 on 10/14/2022 by Amy Mondragon MD at [facility] Right: Ankle Helishopter 05/03/2023 [id number] / / [id number] Graft Bone Canc 4-9.5mm 15cc Frzdr Chp Implanted:Qt y: 1 on 10/14/2022 by Amy Mondragon MD at [facility] Right: Ankle [employer] 08/19/2026 [id number] / / [id number] Right Small Nail Implanted:Qt y: 1 on 10/14/2022 by Amy Mondragon MD at [facility] Right: Ankle [employer] 05/20/2030 [id number] / / [id number] Screw 5mm 25mm Valor Ti Hindfoot Fsn Sys Implanted:Qt y: 1 on 10/14/2022 by Amy Mondragon MD at [facility] Right: Ankle Helishopter 07/16/2030 [id number] / / [id number] Screw 5mm 30mm Valor Ti Hindfoot Fsn Sys Implanted:Qt y: 1 on 10/14/2022 by Amy Mondragon MD at [facility] Right: Ankle Helishopter 08/23/2030 [id number] / / [id number] 5x40mm Screw Implanted:Qt y: 1 on 10/14/2022 by Amy Mondragon MD at [facility] Right: Ankle [employer] [id number] 07/16/2030 [id number] / / [id number] 5x70mm Screw Implanted:Qt y: 1 on 10/14/2022 by Amy Mondragon MD at [facility] Right: Ankle [employer] [id number] 01/16/2030 [id number] / / [id number] Screw 3.5mm 18mm T10 Ft Strdr Nonster Implanted:Qt y: 1 on 10/14/2022 by Amy Mondragon MD at [facility] Right: Ankle [employer] [id number] / / Screw 3.5mm 50mm T10 Ft Strdr Nonster Implanted:Qt y: 1 on 10/14/2022 by Amy Mondragon MD at [facility] Right: Ankle [employer] [id number] / / Graft Bone Ignite Dbm 20ml Pwr Mx Inj - [id number] Implanted:Qt y: 1 on 10/14/2022 by Amy Mondragon MD at [facility] Right: Ankle [employer] 03/18/2026 [id number] / [id number] / Lead Nrstm Inspr 3 Eltrd Cuf Tnl Pelon - [id number] Implanted:Qt y: 1 on 05/10/2024 by Sriram Simon MD at [facility] Right: Neck [employer] [id number] 06/29/2026 [id number] / [id number] / Lead Ns Resp - [id number] Implanted:Qt y: 1 on 05/10/2024 by Sriram Simon MD at [facility] Right: Chest [employer] [id number] 09/15/2026 [id number] / [id number] / Gntr Nrstm - [id number] Implanted:Qt y: 1 on 05/10/2024 by Sriram Simon MD at [facility] Right: Chest [employer] [id number] 07/14/2026 3028 / [id number] / Graft Bone Allofiber Dmnr Bone Fbr 2.5cc - [id number] Implanted:Qt y: 1 on 06/09/2025 by Duncan Sharp DO at [facility] Right: Ankle Helishopter 08/18/2027 [id number] / [id number] / Kit Bngf 3cc Aug Inj Implanted:Qt y: 1 on 06/09/2025 by Duncan Sharp DO at [facility] Right: Ankle Helishopter 03/31/2027 [id number] / / [id number] Nail Im 13mm 180mm Panta 2 Strl Lf Implanted:Qt y: 1 on 06/09/2025 by Duncan Sharp DO at [facility] Right: Ankle [employer] 12/02/2028 [id number] / / [id number] Panta 5.0mm Pt C-Screw Size 70 Implanted:Qt y: 2 on 06/09/2025 by Duncan Sharp DO at [facility] Right: Ankle [employer] [id number] / / Screw 5mm 26mm Ft Panta 2 Nonster Arthds Implanted:Qt y: 1 on 06/09/2025 by Duncan Sharp DO at [facility] Right: Ankle [employer] [id number] / / Screw 5mm 24mm Ft Panta 2 Nonster Arthds Implanted:Qt y: 1 on 06/09/2025 by Duncan Sharp DO at [facility] Right: Ankle [employer] [id number] / / Cap End Arthds Nail Sys Nonster Panta 2 Implanted:Qt y: 1 on 06/09/2025 by Duncan Sharp DO at [facility] Right: Ankle [employer] [id number] / / Explanted Type Area Photographs Curator Device Identifier Shelf Expiration Date Model / Serial / Lot Fully Threaded 4.7 Mm Osteopenia Screw Explanted:Qty: 1 on 09/22/2021 by Gonzales Rey DO at [facility] Screw Right: Ankle [employer] [id number] / / Wire K 1.6mm 150mm Troc Pnt Ss Fx Strl Explanted:Qty: 2 on 09/22/2021 by Gonzales Rey DO at [facility] Wire Right: Ankle [employer] [id number] / / Drill Srg [id number] Panta Implanted:Duncan Raines DO (Quantity not on file) Explanted:Qty: 1 on 06/09/2025 at [facility] Right: Ankle [employer] [id number] / / Drill Srg [id number] Panta Implanted:Duncan Raines DO (Quantity not on file) Explanted:Qty: 1 on 06/09/2025 at [facility] Right: Ankle [employer] [id number] / / Pelon Extfix 5mm Panta 2 Comp Arthds Nail Implanted:Duncan Raines DO (Quantity not on file) Explanted:Qty: 1 on 06/09/2025 at [facility] Right: Ankle [employer] [id number] / / Procedures Procedure Name Priority Date/Time Associated Diagnosis Comments XR ANKLE RIGHT 3VW OR MORE Routine 06/17/2025 10:02 AM AUTOMATIC QUILLING MACHINE OPERATOR Post-operative state XR CALCANEUS RIGHT 1VW Routine 06/17/2025 10:02 AM AUTOMATIC QUILLING MACHINE OPERATOR Post-operative state IMAGING/RADIOLOGY/XR AY RESULTS ORDER 06/14/2025 9:42 PM AUTOMATIC QUILLING MACHINE OPERATOR BASIC METABOLIC PANEL (CALCIUM TOTAL) AM Draw 06/13/2025 3:45 AM AUTOMATIC QUILLING MACHINE OPERATOR BASIC METABOLIC PANEL (CALCIUM TOTAL) AM Draw 06/12/2025 4:16 AM AUTOMATIC QUILLING MACHINE OPERATOR CBC W/O DIFFERENTIAL AM Draw 06/12/2025 4:16 AM AUTOMATIC QUILLING MACHINE OPERATOR GLUCOSE - POINT OF CARE Routine 06/11/2025 7:36 PM AUTOMATIC QUILLING MACHINE OPERATOR CBC W/O DIFFERENTIAL AM Draw 06/10/2025 3:40 AM AUTOMATIC QUILLING MACHINE OPERATOR BASIC METABOLIC PANEL (CALCIUM TOTAL) AM Draw 06/10/2025 3:40 AM AUTOMATIC QUILLING MACHINE OPERATOR GLUCOSE - POINT OF CARE Routine 06/09/2025 9:18 PM AUTOMATIC QUILLING MACHINE OPERATOR FL OLY SURGERY Routine 06/09/2025 12:55 PM AUTOMATIC QUILLING MACHINE OPERATOR Right ankle pain, unspecified chronicity CULTURE WOUND+GRAM STAIN STAT 06/09/2025 12:12 PM AUTOMATIC QUILLING MACHINE OPERATOR Diagnosis unknown CULTURE ANAEROBE STAT 06/09/2025 12:12 PM AUTOMATIC QUILLING MACHINE OPERATOR Diagnosis unknown CULTURE WOUND+GRAM STAIN STAT 06/09/2025 12:09 PM AUTOMATIC QUILLING MACHINE OPERATOR Diagnosis unknown CULTURE ANAEROBE STAT 06/09/2025 12:09 PM AUTOMATIC QUILLING MACHINE OPERATOR Diagnosis unknown [place] FUSION FOOT BONES,PANTALAR 06/09/2025 10:11 AM AUTOMATIC QUILLING MACHINE OPERATOR M96.0, Z96.9, Z98.890 Special Needs C-ARM, PANTA NAIL EXTRACTION KIT, AUGMENT BONE GRAFT, SCREWDRIVER, SCREW REMOVAL SET surg 06/09 100 PERIPHERAL BLOCK Routine 06/09/2025 9:03 AM AUTOMATIC QUILLING MACHINE OPERATOR COMPREHENSIVE METABOLIC PANEL STAT 05/11/2025 1:28 PM CDT Preop testing EKG 12-LEAD Routine 05/11/2025 1:19 PM CDT Preop testing from Last 3 Months Results * XR Ankle Right 3Vw or More (06/17/2025 10:02 AM AUTOMATIC QUILLING MACHINE OPERATOR) [facility]17[facility] 10:02 AM AUTOMATIC QUILLING MACHINE OPERATOR For details of this study, please see the providers note. Aleksandr Denita LEYVA-C DIAGNOSTIC IMAGING ORDER LIBERTY Final Result Performing Organization Address [facility] de Phone Number [email or web address] * XR Calcaneus Right 1Vw (06/17/2025 10:02 AM AUTOMATIC QUILLING MACHINE OPERATOR) Narrative [facility] - 06/17/2025 10:02 AM AUTOMATIC QUILLING MACHINE OPERATOR For details of this study, please see the providers note. Aleksandr LEYVA-C DIAGNOSTIC IMAGING ORDER LIBERTY Final Result Performing Organization Address [facility] de Phone Number SCMPRAD * IMAGING/RADIOLOGY/XRAY RESULTS ORDER (06/14/2025 9:42 PM AUTOMATIC QUILLING MACHINE OPERATOR) Anatomical Region Laterality Modality Other Narrative 06/14/2025 9:42 PM AUTOMATIC QUILLING MACHINE OPERATOR Ordered by an unspecified provider. us Scanned Document IMAGING Final Result * (ABNORMAL) BASIC METABOLIC PANEL (CALCIUM TOTAL) (06/13/2025 3:45 AM AUTOMATIC QUILLING MACHINE OPERATOR) Only the most recent of3 resultswithin the time period is included. Glucose 106(H) 70 - 99 mg/dL 06/13/2025 4:41 AM AUTOMATIC QUILLING MACHINE OPERATOR [facility] Sodium 138 136 - 145 mmol/L 06/13/2025 4:41 AM AUTOMATIC QUILLING MACHINE OPERATOR [facility] Potassium 3.7 3.5 - 5.1 mmol/L 06/13/2025 4:41 AM AUTOMATIC QUILLING MACHINE OPERATOR [facility] Chloride 102 98 - 107 mmol/L 06/13/2025 4:41 AM [facility] CO2 30(H) 22 - 29 mmol/L 06/13/2025 4:41 AM AUTOMATIC QUILLING MACHINE OPERATOR [facility] Calcium 8.6 8.4 - 10.4 mg/dL 06/13/2025 4:41 AM [facility] Anion Gap 6 6 - 16 mmol/L 06/13/2025 4:41 AM [facility] BUN 9 7 - 26 mg/dL 06/13/2025 4:41 AM [facility] Creatinine 0.61 0.50 - 1.20 mg/dL 06/13/2025 4:41 AM [facility] eGFR by CKD-EPI >90 >=90 mL/min/1.7 3 m2 06/13/2025 4:41 AM [facility] Comment:Estimated Glomerular Filtration Rate (eGFR) calculated using the CKD-EPI Creatinine Equation (2020), per the National Kidney Foundation and [place] [employer]ph[employer] recommendations. Blood BLOOD SPECIMEN / Unknown Lab Venipuncture / Unknown 06/13/2025 3:45 AM AUTOMATIC QUILLING MACHINE OPERATOR 06/13/2025 4:21 AM AUTOMATIC QUILLING MACHINE OPERATOR us Raquel Russell MD LAB - CHEMISTRY ORDERABLES Fi nal Result [facility] [address] [place] [address] * (ABNORMAL) CBC W/O DIFFERENTIAL (06/12/2025 4:16 AM [facility]) Only the most recent of2 resultswithin the time period is included. WBC 8.8 4.0 - 10.7 x10E9/L 06/12/2025 5:13 AM [facility] RBC Count 3.29(L) 3.90 - 5.20 x10E12/L 06/12/2025 5:13 AM [facility] Hemoglobin 10.0(L) 11.9 - 15.8 g/dL 06/12/2025 5:13 AM [facility] Hematocrit 31.7(L) 34.8 - 46.1 % 06/12/2025 5:13 AM [facility] MCV 96.4 80.0 - 98.0 fL 06/12/2025 5:13 AM [facility] MCH 30.4 26.7 - 33.6 pg 06/12/2025 5:13 AM [facility] MCHC 31.5(L) 31.7 - 36.3 g/dL 06/12/2025 5:13 AM [facility] RDW-CV 12.9 11.3 - 14.8 % 06/12/2025 5:13 AM [facility] Platelet Count 279 150 - 420 x10E9/L 06/12/2025 5:13 AM [facility] MPV 9.3 7.8 - 11.4 fL 06/12/2025 5:13 AM AUTOMATIC QUILLING MACHINE OPERATOR [facility] Blood BLOOD SPECIMEN / Unknown Lab Venipuncture / Unknown 06/12/2025 4:16 AM AUTOMATIC QUILLING MACHINE OPERATOR 06/12/2025 5:05 AM AUTOMATIC QUILLING MACHINE OPERATOR us Raquel Russell MD LAB - HEMATOLOGY ORDERABLES F inal Result [facility] [address] [place] [id number] * (ABNORMAL) GLUCOSE - POINT OF CARE (06/11/2025 7:36 PM AUTOMATIC QUILLING MACHINE OPERATOR) Only the most recent of2 resultswithin the time period is included. Glucose WB/POC 160(H) 70 - 99 mg/dL 06/11/2025 7:52 PM AUTOMATIC QUILLING MACHINE OPERATOR [facility] Specimen Type Arterial/C apillary 06/11/2025 7:52 PM AUTOMATIC QUILLING MACHINE OPERATOR [facility] Blood BLOOD SPECIMEN / Unknown 06/11/2025 7:36 PM AUTOMATIC QUILLING MACHINE OPERATOR 06/11/2025 7:52 PM AUTOMATIC QUILLING MACHINE OPERATOR us Duncan Sharp DO LAB - POINT OF CARE ORDERABLE S Final Result [facility] [address] [place] [id number] * FL Oly Surgery (06/09/2025 12:55 PM AUTOMATIC QUILLING MACHINE OPERATOR) Narrative [facility] - 06/09/2025 4:35 PM AUTOMATIC QUILLING MACHINE OPERATOR For details of this study, please see the providers note. Duncan Sharp FLUOROSCOPY ORDERABLES Final Result Performing Organization Address [place]/[facility] de Phone Number [facility] * CULTURE WOUND+GRAM STAIN (06/09/2025 12:12 PM AUTOMATIC QUILLING MACHINE OPERATOR) Only the most recent of2 resultswithin the time period is included. Culture No growth ABE 06/12/2025 12:49 AM AUTOMATIC QUILLING MACHINE OPERATOR [facility] Gram Stain Heavy Red blood cells 06/12/2025 12:49 AM AUTOMATIC QUILLING MACHINE OPERATOR [facility] Gram Stain Light Polymorphonuclear cells 06/12/2025 12:49 AM AUTOMATIC QUILLING MACHINE OPERATOR [facility] Gram Stain No organisms seen 025 12:49 AM AUTOMATIC QUILLING MACHINE OPERATOR [facility] Microbiology ENTIRE JOINT / Unknown 06/09/2025 12:12 PM AUTOMATIC QUILLING MACHINE OPERATOR 06/09/2025 1:49 PM AUTOMATIC QUILLING MACHINE OPERATOR Comment:Pre-op diagnosis: M96.0, Z96.9, Z98.890 Narrative [facility] - 06/12/2025 12:49 AM AUTOMATIC QUILLING MACHINE OPERATOR Surgical Description: Right Subtalar Joint Duncan Jeremyjuan [facility] - MICROBIOLOGY ORDERABLES Final Result Performing Organization Address [facility] de Phone Number [facility] [address] [place] [address], [facility] [phone] * CULTURE ANAEROBE (06/09/2025 12:12 PM AUTOMATIC QUILLING MACHINE OPERATOR) Only the most recent of2 resultswithin the time period is included. Culture No anaerobic organisms isolated ABE 06/14/2025 11:53 AM AUTOMATIC QUILLING MACHINE OPERATOR [facility] Microbiology ENTIRE JOINT / Unknown 06/09/2025 12:12 PM AUTOMATIC QUILLING MACHINE OPERATOR 06/09/2025 1:49 PM AUTOMATIC QUILLING MACHINE OPERATOR Comment:Pre-op diagnosis: M96.0, Z96.9, Z98.890 Narrative [facility] - 06/14/2025 11:53 AM AUTOMATIC QUILLING MACHINE OPERATOR Surgical Description: Right Subtalar Joint Duncan Jeremyjuan LAB - MICROBIOLOGY ORDERABLES Final Result [facility] [address] [place] [address], [facility] [phone] * Peripheral Nerve Block (06/09/2025 9:03 AM AUTOMATIC QUILLING MACHINE OPERATOR) Narrative Juan Alberto Stephens DO - 06/09/2025 9:03 AM AUTOMATIC QUILLING MACHINE OPERATOR Juan Alberto Stephens DO 06/09/2025 9:08 AM Peripheral Nerve Block Procedure: Peripheral Nerve Block Patient Location: Pre-op Preprocedure Section: Indications: at surgeon's request, at patient's request and postop pain management. Pre-anesthetic Checklist: Patient identified, IV Checked, Site examined and clear, Risks and benefits discussed, Surgical consent verified, Monitors and equipment, Time-out performed, Informed consent obtained, Pre-op evaluation done, Questions answered/anesthesia questions answered, Allergies reviewed and Removal hand/wrist jewelry Monitors: BP, Pulse Ox and EKG. Patient Condition: sedated, meaningful contact maintained throughout procedure Patient Position: left lateral decubitus Patient Sedated? Yes Sedation Type: mild Procedure Section Laterality: right Block Performed: Popliteal Prep: Chloraprep Strerile Field: gloves, mask and hat/cap Needle Type: nerve stimulator and Echogenic insulated Needle Gauge: 21 Catheter? No Nerve Stimulator? Yes Stimulation/Motor Response #1: dorsiflexion Loss of Stimulation at (mA): 0.2 Ultrasound Guided? Yes Technique: in plane Visualization: Preliminary scan performed, Important anatomical structures identified, Target identified, Needle tip visualized throughout the procedure, No intraneural or intravascular puncture occurred, Hydrodissection utilized, Ultrasound image in chart and Local visualized surrounding nerve on ultrasound Injection was made incrementally with constant monitoring and aspirations every 5 mL's Block Agents or Additives used? Yes Block agents used: bupivacaine 0.5% - EPINEPHrine 1:200,000 (PF) injection - Perineural 20 mL - 06/09/2025 8:56:00 AM Procedure Tolerance: tolerated well, performed while the patient was sedated and no immediate complications Staff Section Anesthesia Provider: Juan Alberto Stephens DO, Performed the procedure Additional Comments: After the risks and benefits were explained, consent was obtained. Using US, the nerve was easily identified. Skin was prepped and anesthetized. A needle was inserted and twitch observed. A total of 20cc of LA was injected easily and incrementally with no pain during injection. The patient tolerated the procedure very well. Of note, the adductor canal block was not done because artery not well visualized. . us Juan Alberto Stephens DO GENERAL ANESTHESIA ORDERABLES Fi nal Result * (ABNORMAL) COMPREHENSIVE METABOLIC PANEL (05/11/2025 1:28 PM CDT) Glucose 120(H) 70 - 99 mg/dL 05/11/2025 1:53 PM CDT [facility] Sodium 137 136 - 145 mmol/L 05/11/2025 1:53 PM CDT [facility] Potassium 4.2 3.5 - 5.1 mmol/L 05/11/2025 1:53 PM CDT [facility] Chloride 108(H) 98 - 107 mmol/L 05/11/2025 1:53 PM CDT [facility] CO2 20(L) 22 - 29 mmol/L 05/11/2025 1:53 PM CDT [facility] Calcium 8.9 8.4 - 10.4 mg/dL 05/11/2025 1:53 PM CDT [facility] Anion Gap 9 6 - 16 mmol/L 05/11/2025 1:53 PM CDT [facility] BUN 21 7 - 26 mg/dL 05/11/2025 1:53 PM CDT [facility] Creatinine 0.68 0.50 - 1.20 mg/dL 05/11/2025 1:53 PM CDT [facility] Alkaline Phosphatase 141 40 - 150 U/L 05/11/2025 1:53 PM CDT [facility] ALT 9 6 - 57 U/L 05/11/2025 1:53 PM CDT [facility] AST 20 10 - 48 U/L 05/11/2025 1:53 PM CDT [facility] Protein Total 6.9 6.4 - 8.3 gm/dL 05/11/2025 1:53 PM CDT [facility] Albumin 4.0 3.1 - 4.5 gm/dL 05/11/2025 1:53 PM CDT [facility] Bilirubin Total 0.2 0.2 - 1.2 mg/dL 05/11/2025 1:53 PM CDT [facility] eGFR by CKD-EPI >90 >=90 mL/min/1.7 3 m2 05/11/2025 1:53 PM CDT [facility] Comment:Estimated Glomerular Filtration Rate (eGFR) calculated using the CKD-EPI Creatinine Equation (2020), per the National Kidney Foundation and [place] [employer] Neph[employer] recommendations. Blood BLOOD SPECIMEN / Unknown Lab Venipuncture / Unknown 05/11/2025 1:28 PM CDT 05/11/2025 1:33 PM CDT Cassandra Chauhan [employer]-HEATING AND VENTILATING WORKER LAB - CHEMISTRY ORDERA BLES Final Result [facility] [address] [place] [id number] * EKG 12-Lead (05/11/2025 1:19 PM CDT) Ventricular Rate 68 BPM [facility] Atrial Rate 68 BPM [facility] P-R Interval 128 ms [facility] QRS Duration ms 118 ms [facility] Q-T Interval ms 452 ms [facility] QTC Calculation (Bezet) 480 ms [facility] Calculated P [place] 23 degrees [facility] Calculated R [place] -26 degrees [facility] Calculated T [place] 7 degrees [facility] Interpretation EKG Sinus rhythm with Premature atrial complexes Right bundle branch block Abnormal ECG No previous ECGs available Confirmed by JER ARNOLD, SAGAR ([id number]) on 05/12/2025 4:08:23 PM [facility] 05/11/2025 1:19 PM CDT 05/12/2025 4:08 PM CDT Cassandra Chauhan [employer]ATING WORKER ECG ORDERABLES Edited Result - Final [facility] from Last 3 Months Insurance MEDICARE [facility] MEDICARE [facility] Advance Directives Documents on File Type Date Recorded 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
--- OUTSIDE RECORDS SUMMARY | 2025-06-22 17:32 | XMS_ITS | Clinical Summary ---
Author Organization [facility] Address [address] [place] [address] Care Team Providers Care Shower Attendant Name Role Phone Juana Nguyen MD Primary Care Provider + [phone] Allergies Active Allergy Reactions Criticality Noted Date [...] Oral q hs, Route to Pharmacy Electronically, [facility]/pharmacy #[id number], 150, 09/27/21 13:13:00 CHIEF NURSING OFFICER, Height/Length Dosing, cm, 97.8, 09/25/21 18:28:00 CHIEF NURSING OFFICER, Weight Dosing, kg 2 Active omeprazole 40 [...] virus vaccine, PF, 0.5 ML injection Afluria 3328-4040(PF) 45 mcg (15 mcg x 3)/0.5 mL [...] mg tablet Active vitamin D2, ergocalciferol , 55501 UNITS capsule Take 50,000 Units by mouth [...] age to complete this topic Insurance MEDICARE [facility] Care Teams Shower Attendant Relationship Specialty Start Date End Date Juana Nguyen MD [address], [place] [address] PCP - General 06/26/14
--- OUTSIDE RECORDS SUMMARY | 2025-06-22 17:33 | XMS_ITS | Data Portability ---
Author Organization [facility] [place] Address [address] [place] [address] [place] [address] Care Team Providers Care Coil Repair Technician Name Role Phone JOSUE HOGAN Primary Care Provider Assessment No assessment recorded. Plan of Treatment Reminders Order Date Submit Date Provider Last Modified By Organization Details Last Modified Time Details Appointments None recorded. Lab urinalysis, dipstick 2024 025 [address], [address], [place], [address], 17:49:05 culture, urine 2024 025 [facility] (Lab), [address] [facility], [place], [address], 22:24:58 Referral None recorded. Procedures None recorded. Surgeries None recorded. Imaging US, pelvis 2024 025 [email or web address], [address], [place], [address], 09:56:35 US, transvagina l 2024 025 [email or web address], [address], [place], [address], 09:56:35 US, transvagina l 2024 025 [email or web address], [address], [place], [address], 09:56:35 US, pelvis, complete 2024 025 [email or web address] Not available 13:13:54 Medication Orders None recorded. [...] t Abnor mal: No Resul ting Lab: [facility] [address] [facility] [address] Tel: CULTU RE ----- ----- ----- --- No growt h in 1 day (dete ction level of 10,00 0 colon ies / ml.) Not Available [facility] (Lab) [address], [place], [address], 01/19/2025 22:24:58 01/19/20 25 01/18/2025 urina lysis , dipst ick Leukocytes +++ Not Available Helen berry [address], [place], [address], 01/18/2025 17:48:11 01/19/20 25 01/18/2025 urina lysis , dipst ick Nitrite - Not Available [place] [address], [place], [address], 01/18/2025 17:48:11 01/19/20 25 01/18/2025 urina lysis , dipst ick Urobilinogen Normal Not Available Tea patel [address], [place], [address], 01/18/2025 17:48:11 01/19/20 25 01/18/2025 urina lysis , dipst ick Protein + Not Available [place] [address], [place], [address], 01/18/2025 17:48:11 01/19/20 25 01/18/2025 urina lysis , dipst ick pH 5 Not Available [place] [address], [place], [address], 01/18/2025 17:48:11 01/19/20 25 01/18/2025 urina lysis , dipst ick Specific [place] 1.030 Not Available [facility] [address], [place], [address], 01/18/2025 17:48:11 01/19/20 25 01/18/2025 urina lysis , dipst ick Ketone + Not Available [place] [address], [place], [address], 01/18/2025 17:48:11 01/19/20 25 01/18/2025 urina lysis , dipst ick Bilirubin - Not Available [facility] [address], [place], [address], 01/18/2025 17:48:11 01/19/20 25 01/18/2025 urina lysis , dipst ick Glucose Normal Not Available [place] [address], [place], [address], 01/18/2025 17:48:11 01/19/20 25 01/18/2025 urina lysis , dipst ick Appearance cloudy [facility] [address], [place], [address], 01/18/2025 17:48:11 01/19/20 25 01/18/2025 urina lysis , dipst ick Color yellow Not Available [place] [address], [place], [address], 01/18/2025 17:48:11 01/26/20 25 01/25/2025 US, pelvi s No observ ation record ed. [email or web address] [place] [address], [place], [address], 01/25/2025 17:38:49 01/26/20 25 01/25/2025 US, trans vagin al No observ ation record ed. [email or web address] [place] [address], [place], [address], 01/25/2025 17:39:01 01/26/20 25 01/25/2025 US, trans vagin al No observ ation record ed. [email or web address] [place] [address], [place], [address], 01/25/2025 17:39:12 01/26/20 25 01/25/2025 US, pelvi s No observ ation record ed. [email or web address] [place] [address], [place], [address], 01/27/2025 18:04:18 Result Notes None recorded. 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, high risk on cervical specimen 838150984 Active 2017 Cervical high risk HPV DNA test positive;P christiano ID: 0001 Not Available [facility] 0 16:04:35 Evaluatio n finding Active 2017 Unsp abnormal cytolog findings in specmn from cervix uteri;Prac thanh ID: 0001 Not Available [facility] 0 16:04:35 Tinea corporis 43572650 Active 2017 Tinea corporis;R ecorded Elsewhere: No Locatio n: [facility] rce: EHR Chroni c: N Practice ID: 0001 Billa ble Time: 01:00:00 PM Not Available [facility] 0 16:04:[address] Concept Active 2018 Encntr for general adult medical exam w/o abnormal findings;P sivakumartice ID: 0001 Not Available [facility] 0 16:04:35 At risk - finding 823457610 Active 2018 Oth personal risk factors, not elsewhere classified ;Practice ID: 0001 Not Available [facility] 0 16:04:35 Screening for malignant neoplasm of rectum Active 2018 Encounter for screening for malignant neoplasm of rectum;Pra ctice ID: 0001 Not Available [facility] 0 16:04:[address] Concept Active 2018 Well woman check w/o abnormal finding;Re corded Elsewhere: No Locatio n: [facility] rce: EHR Chroni c: N Practice ID: 0001 Billa ble Time: 02:30:00 PM Not Available [facility] 0 16:04:36 Screening for malignant neoplasm of cervix Active 2018 Encounter for screening for malignant neoplasm of cervix;Rec orded Elsewhere: No Locatio n: [facility] rce: EHR Chroni c: N Practice ID: 0001 Billa ble Time: 02:30:00 PM Not Available [facility] 0 16:04:36 Problem Notes None recorded. Procedures Surgical History Date Name Laterality Status Provider Name and Address Organization Details Recorded Time 2 repair of ankle completed [facility] 01/18/2025 16:38:13 4 replacement of bilateral knee joints completed [facility] 01/18/2025 16:37:16 4 salpingo-oophor ectomy completed [facility] 01/18/2025 16:35:53 4 endometrial ablation completed [facility] 01/18/2025 16:36:06 4 section completed [facility] 01/18/2025 16:35:12 spinal arthrodesis completed [facility] 01/18/2025 16:37:47 Imaging Results None recorded. Procedure Notes None recorded. Medical Equipment None Reported. Allergies Allergen ID Allergen Name Allergen Category Reaction Reaction Severity Criticality Documentation Date Start Date Code Code System Note Provider Name and Address Organization Details Recorded Time 56235 pregabali n medicatio n Not available Not available Not available 07/21/2020 93808 2 RxNorm Comme nt: [facility] Agent : Zofia a; Not Available [facility] 0 14:20:49 23368 Ativan medicatio n Not available Not available Not available 01/18/202519304 9 [facility] 16:18:40 57899 adhesive tape environme nt,medica tion Not available Not available Not available 01/18/2025 [facility] 16:18:47 Medications Name Sig Start Date Stop Date Status Note LastModified by Organization Details LastModified Time losartan 50 mg tablet TAKE 1 TABLET BY MOUTH EVERY DAY active Not Available Not Available No t Available pramipexo le 1 mg tablet take 1 tablet by oral route 3 times every day active Prescrib ed Elsewher e: Yes Loca tion: [facility] M odify By: gilberto Braxton [...] Elsewher e: Yes Loca tion: Ervin braxton [facility] odify By: gilberto langleyuntjaqui DateTime : 01/06/20 18 01:00:00 PM Not Available Not Available Not Available nystatin 100,000 unit/gram topical ointment apply by topical route 2 times every day to the affected area(s) 01/18 completed Prescrib ed Elsewher e: Yes Loca tion: Ervin braxton [facility] odify By: gilberto Braxton ncounter DateTime : 01/06/20 18 01:00:00 PM Not Available Not Available Not Available benzonata te 200 mg capsule take 1 capsule by oral route 3 times every day as needed for cough 02/11 completed Prescrib ed Elsewher e: Yes Loca tion: Ervin braxton [facility] odify By: remi langleyuntjaqui DateTime : 01/06/20 18 01:00:00 PM Not Available Not Available Not Available sulfameth oxazole 400 mg-trimet hoprim 80 mg tablet take 2 tablet by oral route every 12 hours 08/11 completed Prescrib ed Elsewher e: Yes Loca tion: Ervin braxton [facility] odify By: rosalie langleyuntjaqui DateTime : 01/06/20 18 01:00:00 PM Not Available Not Available Not Available carbidopa 25 mg-levodo pa 250 mg tablet take 1 tablet by oral route 3 times every day active Prescrib ed Elsewher e: Yes Loca tion: Ervin braxton [facility] odify By: gilberto langleyuntjaqui DateTime : 01/06/20 18 01:00:00 PM Not Available Not Available Not Available meloxicam 15 mg tablet take 1 tablet by oral route every day 02/11 completed Prescrib ed Elsewher e: Yes Loca tion: Ervin braxton [facility] odify By: remi langleyuntjaqui DateTime : 01/06/20 [...] Elsewher e: Yes Loca tion: Ervin braxton [facility] odify By: gilberto nj DateTime : 01/06/20 18 01:00:00 PM Not Available Not Available Not Available Klor-Con 20 mEq oral packet take 1 packet by oral route 4 times every day dissolve d in 4-6 ounces of cold water or juice active Prescrib ed Elsewher e: Yes Loca tion: Ervin braxton [facility] odify By: gilberto nj DateTime : 01/06/20 18 01:00:00 PM Not Available Not Available Not Available omeprazol e 40 mg capsule,d elayed release 40 MG ORALLY DAILY 01/18 completed Not Available Not Available Not Available triamtere ne 37.5 mg-hydroc hlorothia zide 25 mg capsule take 1 capsule by oral route every day 01/18 completed Prescrib ed Elsewher e: Yes Loca tion: Ervin braxton [facility] odify By: gilberto nj DateTime : 01/06/20 18 01:00:00 PM Not Available Not Available Not Available ranitidin e 25 mg/mL injection solution infuse by intraven ous route every 8 hours over 01/18 completed Prescrib ed Elsewher e: Yes Loca tion: Ervin braxton [facility] odify By: gilberto nj DateTime : 01/06/20 18 01:00:00 PM Not Available Not Available Not Available levothyro xine 100 mcg tablet TAKE 1 TABLET BY MOUTH EVERY DAY 01/18 completed Not Available Not Available Not Available bupropion HCl 100 mg tablet take 1 tablet by oral route 2 times every day 01/18 completed Prescrib ed Elsewher e: Yes Loca tion: Ervin braxton [facility] odify By: gilberto nj DateTime : 01/06/20 [...] Elsewher e: Yes Loca tion: Ervin braxton [facility] odify By: gilberto nj DateTime : 01/06/20 18 01:00:00 PM Not Available Not Available Not Available dicyclomi ne 20 mg tablet TAKE 1 TABLET BY MOUTH TWICE A DAY 01/18 completed Not Available Not Available Not Available Vitamin C oral powder active Prescrib ed Elsewher e: Yes Loca tion: Ervin braxton [facility] odify By: gilberto nj DateTime : 01/06/20 [...] Elsewher e: Yes Loca tion: Ervin braxton [facility] odify By: gilberto nj DateTime : 01/06/20 18 01:00:00 PM Not Available Not Available Not Available amoxicill in 250 mg capsule take 2 capsule by oral route 4 times every day 01/18 completed Prescrib ed Elsewher e: Yes Loca tion: Ervin braxton [facility] odify By: gilberto nj DateTime : 01/06/20 [...] Elsewher e: Yes Loca tion: Ervin braxton [facility] odify By: gilberto langleyunter DateTime : 01/06/20 [...] Elsewher e: No Locat ion: Ervin braxton [facility] odify By: lbhollis tz Encou nter DateTime [...] Elsewher e: Yes Loca tion: Ervin braxton [facility] odify By: gilberto garridoer DateTime : 01/06/20 18 01:00:00 PM Not Available Not Available Not Available magnesium 30 mg tablet active Prescrib ed Elsewher e: Yes Loca tion: Ervin braxton [facility] odify By: gilberto langleyunter DateTime : 01/06/20 18 01:00:00 PM Not Available Not Available Not Available metronida zole 0.75 % topical gel apply by topical route 2 times every day a thin layer to the affected area(s) in the morning and evening 08/11 completed Prescrib ed Elsewher e: Yes Loca tion: Ervin braxton [facility] odify By: rosalie nj DateTime : 01/06/20 [...] Elsewher e: Yes Loca tion: Ervin braxton [facility] odify By: gilberto nj DateTime : 01/06/20 [...] Elsewher e: Yes Loca tion: Ervin braxton [facility] odify By: gilberto nj DateTime : 01/06/20 18 01:00:00 PM Not Available Not Available Not Available Super B Complex + C 150 mg tablet active Prescrib ed Elsewher e: Yes Loca tion: Ervin braxton [facility] odify By: gilberto nj DateTime : 01/06/20 18 01:00:00 PM Not Available Not Available Not Available Fish Oil 300 mg-1,000 mg capsule active Prescrib ed Elsewher e: Yes Loca tion: Er[facility] odify By: gilberto nj DateTime : 01/06/20 18 01:00:00 PM Not Available Not Available Not Available Calcium 600 + D(3) 600 mg-5 mcg (200 unit) capsule 01/18 completed Prescrib ed Elsewher e: Yes Loca tion: Ervin braxton [facility] odify By: gilberto nj DateTime : 01/06/20 18 01:00:00 PM Not Available Not Available Not Available Vitamin D3 125 mcg (5,000 unit) tablet active Prescrib ed Elsewher e: Yes Loca tion: Ervin braxton [facility] odify By: gilberto langleyunter DateTime : 01/06/20 18 01:00:00 PM Not Available Not Available Not Available Hair,Skin ,Nails with Biotin 7.5 mg-7.5 unit-1,25 0 mcg chewable tablet active Prescrib ed Elsewher e: Yes Loca tion: Ervin braxton [facility] odify By: gilberto langleyunter DateTime : 01/06/20 18 01:00:00 PM Not Available Not Available Not Available fluticaso ne propionat e, micronize d (bulk) 100 % powder 01/18 completed Prescrib ed Elsewher e: Yes Loca tion: Ervin braxton [facility] odify By: gilberto langleyunter DateTime : 01/06/20 18 01:00:00 PM Not Available Not Available Not Available Probiotic 15 billion cell capsule active Prescrib ed Elsewher e: Yes Loca tion: Juan C fox [facility] odify By: gilberto garridoer DateTime : 01/06/20 18 01:00:00 PM Not Available Not Available Not Available Vitals Date Recorded Body height Body mass index (BMI) Body weight Systolic And Diastolic Provider Name and Address Organization Details Last Updated DateTime 01/18/2025 147.32 cm 38.3 kg/m2 07001.84 g 117/84 mm[Hg] Gissel Valencia [facility] 01/18/2025 16:18:21 Social History Question Answer Notes LastModified by Organizat ion Details LastModified Time Tobacco Smoking Status Never Smoker Gissel lowe [facility] 01/18/2025 16:34:52 In The 14 Days Before Symptom Onset, Have You Had Close Contact With A Laboratory-confirm ed COVID-19 While That Case Was Ill? No [email or web address] Information n ot available 01/18/2025 In The 14 Days Before Symptom Onset, Have You Had Close Contact With A Person Who Is Under Investigation For COVID-19 While That Person Was Ill? No [email or web address] Information not available 01/18/2025 Have You Been To An Area Known To Be High Risk For COVID-19? No [email or web address] Information not available 01/18/2025 Sex: Unknown Functional Status None recorded. Mental Status None recorded. Family History Relationship Description Onset Age of this Age Resolved Age Notes LastModified by Organization Details LastModified Time Mother Malignant neoplasm of breast [email or web address] Not available 2024 16:33:21 Mother Disorder of thyroid gland [email or web address] Not available 2024 16:34:39 Paternal Grandmother Malignant neoplasm of colon [email or web address] Not available 2024 16:33:48 Paternal Grandfather Malignant neoplasm of colon [email or web address] Not available 2024 16:33:48 Sister Muscular dystrophy [email or web address] Not available 2024 16:34:25 Notes:Father: Infertility Ma [...] ICD10 Code Diagnosis IMO Codes Diagnosis Note [id number] NOEMY Pringle [place] [address] [address] 01/18/2025 15:48:34 01/19/2025 10:07:18 Pain in pelvis 44173620 R10.2 34352 Detailed health hx obtained and reviewed todayUA done, urine cx sentwe agreed to update pelvic u/swill reach out to pt with results when availablee ncouraged continued PCP/GI fu as well Time spent in visit is a total of 25 mins with at least 50% of visit consisting of counseling and review of plan of care. Right lowe r quadrant pain 434799399 R10.31 [id number] Jesus Pond MD [place] [address] [address] 01/25/2025 14:42:21 01/25/2025 15:18:43 Pain in pelvis 95329817 R10.2 419163 Health Concerns Section Related Observation LastModified by Organization Detai ls LastModified Time None Recorded Concern Status LastModified by Organization Details LastModified Time None Recorded Advance Directives Directive None Recorded Payers Insurance Date Sequence Insurance Name Policy Number Policy Luna Covered Member ID Luna Member ID Guarantor Name 01/22/2025 2 [employer] (MEDICARE SUPPLEMENT) Heather Pipes [id number] Heather Pipes 01/20/2025 1 [place] Heather M Pipes [id number] Haether Pipes Notes Date Note Type Note Provider [...] any pain. NOEMY Pringle [address], [place], [address], [place] [facility] 01/19/2025 08:51:16 OBGyn Episode Ob Episode Information Episode Created Date Number of Fetuses Patient Bloodtype Patient rh Status Prepregnancy Weight lbs Domestic Partner Domestic Partner Phone Father Name [employer] Status 01/19/20 25 1 CLOSED Fetus Data First Name Last Name Admitted to NICU Weight (g) Sex Living Outcome Pediatric Complications Fetus ID Race Codes Race Delivery Type 2976.47 0704 F Full Term 06553 Vaginal Delivery Bernard Calculation Initial Bernard Date [...] Domestic Partner Domestic Partner Phone Father Name [employer] Status 01/19/20 25 1 CLOSED Fetus Data First Name Last Name Admitted to NICU Weight (g) Sex Living Outcome Pediatric Complications Fetus ID Race Codes Race Delivery Type , Spontane ous 53043 Bernard Calculation Initial Bernard Date Initial Exam [...] Domestic Partner Domestic Partner Phone Father Name [employer] Status 01/19/20 25 1 CLOSED Fetus Data First Name Last Name Admitted to NICU Weight (g) Sex Living Outcome Pediatric Complications Fetus ID Race Codes Race Delivery Type 3458.63 9 F Full Term [address] Primary Bernard Calculation Initial Bernard Date Initial [...]
--- OUTSIDE RECORDS SUMMARY | 2025-06-22 17:33 | XMS_ITS | Encounter Summary ---
Author Organization [facility] Address [address] [place] [address] Care Team Providers Care Cash Room Clerk Name Role Phone Dayanna Aj Adam FAST FOOD ATTENDANT-ONLINE MEDIA DIRECTOR Primary Care Provider Reason for Visit * Reason Onset Date Comments Letter 05/02/2025 Question 05/02/2025 Encounter Details Date Type Department Care Team (Late st Contact Info) Description 05/02/2025 Telephone [facility] Orthopedics [address] [address] Duncan Sharp DO [facility] Medical [address] [address] Letter; Question Social History Tobacco [...] jury # and electronic signature #. (f) [phone] Jury # [id number] Electronic signature #- [id number] Expected Response from the Clinic? ( ex. Call back, etc..) call back requested please Did you notify caller it would take 24-48 hours for the office to get back to them? YES documented in this encounter Plan of Treatment Upcoming Encounters Date Type Department Care Team (Late st Contact Info) Description 06/24/2025 10:30 AM LINE CLEARANCE FOREMAN Office Visit [facility] Orthopedics [address] [place] [address] Aleksandr Ambrose PA-C [address] [place] [phone] 07/20/2025 10:50 AM LINE CLEARANCE FOREMAN Office Visit [facility] Orthopedics [address] [place] [address] Duncan Sharp DO [address] [place] [address] [place] [phone] 11/23/2025 2:00 PM CDT Office Visit [facility] - Neurology [address] [place] [address], [facility] [place] [address] Katie Augustin APRN-ARIEL [address] [place] [phone] documented as of this encounter Goals Goal [...] on filedocumented in this encounter Care Teams Cash Room Clerk Relationship Specialty Start Date End Date Dayanna Aj APRN-ONLINE MEDIA DIRECTOR [address] [place] [phone] PCP - General Nurse Practitioner Family 10/08/23 documented as of this encounter
--- OUTSIDE RECORDS SUMMARY | 2025-06-22 17:34 | XMS_ITS | Patient Health Record ---
Author Organization [facility] Address [address] [place], [place] [id number] Care Team Providers Care Health Information Provider Name Role Phone JM FAIRCHILD Unavailable [phone] Dayanna Aj Unavailable Unavailable Allergies Allergen (clinical [...] Location Date Provider Diagnosis [facility] [address] [place], [place] [id number] 07/15/2024 JM FAIRCHILD Sprain of anterior talofibular [...] Date Coverage End Date Medicare Part B [place] [address] [place] [address] [id number] Heather Shukla Self - patient is the insured [facility] Medicare Supplement [address] [place], [place] [id number] Heather Shukla Self - patient is the [...]
--- OUTSIDE RECORDS SUMMARY | 2025-06-22 17:35 | XMS_ITS | Data Portability ---
Author Organization ID - [facility] [employer], Main Office Address [address] [place] [address] Assessment Encounter Date Assessment Date Assessment LastModified by Organization Details LastModified Time 01/17/2023 01/17/2023 discussed getting shingles and td vaccine. Not available 01/17/2023 14:30:58 08/15/2023 08/15/2023 discussed getting shingles and td vaccine. Not available 08/15/2023 12:18:19 Plan of Treatment Reminders Order Date Submit Date Provider Last Modified By Organization Details Last Modified Time Details Appointments None recorded. Lab lipid panel, serum [address] (Admitting), [address] [place] [address], [phone], 3 08:00:10 TSH, serum, reflex free T4 2022 023 [facility] (Lab), [address] [place] [address], [address], 3 12:25:39 Referral None recorded. Procedures None recorded. Surgeries None recorded. Imaging MAMMO, screening, digital, bilateral 2022 023 [email or web address] Not available 3 09:06:22 bone density 2022 023 Not available 3 08:57:14 Medication Orders albuterol sulfate HFA 90 mcg/actuati on aerosol inhaler 2023 024 [facility], [address], [place], [address], 4 12:54:52 bupropion HCl XL 300 mg 24 hr tablet, extended release 2023 024 [id number], [address] [facility], [place], [phone], 4 12:54:56 Klor-Con M20 mEq tablet,exte nded release 2023 024 [facility], [address], [place], [address], 4 12:54:52 duloxetine 60 mg capsule,del ayed release 2023 024 [facility], [address], [place], [address], 4 12:54:52 Patient TargetsNo targets recorded. Patient Instructions Encounter Date Encounter Id Patient Instructions Last Modified By Organization Details Last Modified Time 01/17/2023 [id number] fu in 6 mo for check up 30 min Not available 01/17/2023 16:05:19 08/15/2023 [id number] Fu with new pcp in 1-3 mo. 08/15/23 pt aware of samira departure Not available 08/15/2023 12:19:03 Reason for Referral None Reported. Results Created Date Observation Date Name Description Value Unit Range Abnormal Flag Note LastModifiedBy Organization Detail LastModifiedTime 08/22/1908/22/2022 imagi ng/di agnos tic resul t No observ ation record ed. [id number] [facility] [address], [place], [address], 10/02/2022 07:01:19 11/17/19 23 11/16/2022 CT, brain , w/o contr ast No observ ation record ed. [facility] [address], [place], [address], 11/28/2022 15:21:30 11/20/19 23 11/17/2022 iain nuous EEG monit oring , profe sugey al compo nent; 12-26 hrs, with VEEG (PROC ) No observ ation record ed. [facility] [address] [facility] [address], [place], [address], 11/28/2022 15:21:29 02/15/20 23 lipid panel , serum [facility] [address] [place] [address] Patien t Name: ALISA GONZALEZ ion #: [id number] Sex: F : 1954 2 Dictat ed By: Baldomero trevino Attend ing Physic kain: SAMM HOGAN [facility] Physic kain: SAMIRA KEMP Exam Date: 2022 13:43 PM Exam Name: XR DEXA AXIAL/ HIP/PE LVIS/S PINE Admitt ing Diagno sis(es ): CLINIC AL HISTOR Y: Postme nopaus al screen ing for osteop orosis . TECHNI QUE: The study was perfor med using a Payoff Unit. Left proxim al femora l and [...] at 2022 08:03: 02 AM Page [address] (Imaging) [address] [place], [address], 02/21/2023 08:00:10 02/15/20 23 02/13/2023 bone densi ty No observ ation record ed. [address] [place], [address], 02/18/2023 15:08:12 02/15/20 23 MAMMO , scree michael, digit al, bilat eral [facility] [address] [place] [address] [phone] Patien t Name: ALISA GONZALEZ Access ion #: [id number] Sex: F : 1954 2 Dictat ed By: Baldomero trevino Attend ing Physic kain: SAMM HOGAN [facility] Physic kain: SAMIRA KEMP Exam Date: 2022 [...] at 2022 08:11: 43 AM Page 1 [facility] (Imaging) [address] [place], [address], 02/18/2023 15:08:13 03/07/20 23 03/07/2023 US, [facility] [address] [address] Patien t Name: ALISA GONZALEZ ion #: [id number] Sex: F : 1954 7 Dictat ed By: Bertin Patton Attend ing Physic kain: SAMM HOGAN Orderi Physic kain: SAMM HOGAN Exam Date: 2022 13:57 PM Exam Name: US BREAST LIMITE D LT Admitt ing Diagno sis(es ): Histor y: Abnorm al mammog yaritza. COMPAR ERNESTO: 01/08/13 mammog yaritaz. TECHNI QUE: Spot compre ssion views and [...] at 2022 14:21: 10 PM Page [address] (Imaging) [address] [place], [address], 03/12/2023 15:17:05 03/07/20 23 03/07/2023 TSH, serum , refle x free T4 [facility] [address] [place] [address] Patien t Name: ALISA GONZALEZ ion #: [id number] Sex: F : 1954 7 Dictat [...] at 2022 14:21: 10 PM Page [address] (Imaging) [address] [place], [address], 04/11/2023 07:57:39 Result Notes Documentation Provider Name and Address Organization Details Recorded Time Mammo, Screening, Digital, Bilateral : [place] [address] Patient Name: ALISA GONZALEZ Sex: F : [...] null, [place] - [facility] [employer] 02/18/2023 15:08:13 Problems Name Problem SNOMED Code Status Onset Date Resolution Date Notes Provider Name and Address Organization Details Recorded Time Excessive cerumen in ear canal 974157569 Completed Not Available [facility] 3 06:57:57 Lumbar radiculop athy 107660265 Active Not Available [facility] 4 07:02:59 Folliculi tis 65138348 Completed Not Available [facility] 3 06:57:57 Otalgia 90312610 Completed Not Available [facility] 3 06:57:57 Skin tag 506590554 Completed Not Available [facility] 3 06:57:57 Gastroeso phageal reflux disease 088660785 Active Not Available [facility] 4 07:02:59 Edema 965309387 Completed Not Available [facility] 3 06:57:58 Leukocyte s in urine 900395329 Completed Not Available [facility] 3 06:57:58 Pain in left lower limb 318438320 Completed Not Available [facility] 3 06:57:58 Periphera l nerve disease 440646108 Active Not Available [facility] 4 07:02:59 Knee pain Active Not Available [facility] 4 07:02:59 Vaginal dryness 92636884 Active Not Available [facility] 4 07:02:59 Restless legs syndrome 01983262 Active Not Available [facility] 4 07:02:59 Vitamin D deficienc y 90932433 Active Not Available [facility] 4 07:02:59 Depressiv e disorder 91138722 Active Not Available [facility] 4 07:02:59 Migraine 94843244 Active Not Available [facility] 4 07:02:59 Hypertens nupur disorder 94713638 Active Not Available [facility] 4 07:02:59 Hypothyro idism 97297383 Active Not Available [facility] 4 07:02:59 Psoas syndrome 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 Active Not Available [facility] 4 07:02:59 History of polyp of colon 351448623 Active Not Available [facility] 4 07:02:59 Acute urinary tract infection 032921199 Completed Not Available [facility] 3 06:57:59 Abnormal cervical Papanicol aou smear 544567433 Completed Not Available [facility] 3 06:57:59 Seasonal allergy 393063285 Active Not Available [facility] 4 07:02:59 Anxiety 98909398 Active Not Available [facility] 4 07:02:59 Pain of hip region 94895743 Active Not Available [facility] 4 07:02:59 Sinus headache 5044809 Completed Not Available [facility] 3 06:58:00 Cough 02014655 Completed Not Available [facility] 3 06:58:00 Hyperlipi demia 13866624 Active Not Available [facility] 4 07:02:59 Urinary tract infectiou s disease 57775533 Completed Not Available [facility] 3 06:58:00 Sleep apnea 22550222 Active Not Available [facility] 4 07:02:59 Posterior rhinorrhe a 79100264 Active Not Available [facility] 4 07:02:59 Greater trochante marian pain syndrome 3927047 Active Not Available [facility] 4 07:02:59 Chronic pain 58383923 Active Not Available [facility] 4 07:03:00 Asthma 513330153 Active 2017 Not Available [facility] 4 07:02:59 Hypokalem ia 71604534 Active 2017 Not Available [facility] 4 07:02:59 Essential hypertens ion 68028603 Active 2017 Not Available [facility] 4 07:02:59 Postmenop ausal state 17503189 Active 2017 Not Available [facility] 4 07:02:59 Vaginal discharge 154563187 Active 2017 Not Available [facility] 4 07:02:59 Osteopeni a 813497372 Active 2017 Not Available [facility] 4 07:02:59 Pain in throat 856045211 Active 2018 Not Available [facility] 4 07:02:59 Allergic rhinitis 73624519 Active 2018 Not Available [facility] 4 07:02:59 Fatigue 03971333 Active 2020 Not Available [facility] 4 07:03:00 Periodic limb movement disorder 258401662 Active 2020 Not Available [facility] 4 07:02:59 Dysuria 06567706 Active 2020 Not Available [facility] 4 07:02:59 Hypersomn ia 52829879 Active 2020 Not Available [facility] 4 07:03:00 Obstructi ve sleep apnea syndrome 42359265 Active 2020 Not Available [facility] 4 07:03:00 Congestio n of nasal sinus 81114890 Active 2021 Not Available [facility] 4 07:03:00 Pain of right ankle joint 42503144359 861233 Active 2022 Not Available [facility] 4 07:02:59 Hemifacia l spasm 43444602 Active 2022 Not Available [facility] 4 07:02:59 Iron deficienc y anemia 16858568 Active 2022 Not Available [facility] 4 07:03:00 Mammograp hy abnormal 202889712 Active 2022 Not Available [facility] 4 07:02:59 Candidias is of skin 34100499 Active 2022 Not Available [facility] 4 07:02:59 Problem Notes None recorded. Procedures Surgical History Date Name Laterality Status Provider Name and Address Organization Details Recorded Time 02/14/20 23 Most Recent Bone Density completed Dayanna Hogan NP [address], [place], [address], [employer] 02/16/2023 22:03:01 02/14/20 23 Most Recent Mammogram completed Dayanna Hogan NP [address], [place], [address], [employer] 02/16/2023 22:05:06 09/22/19 22 Ankle Surgery completed Not Available [facility] 10/02/2022 06:55:00 03/04/20 21 Date of Last Colonoscopy completed Dayanna Manzano RN [facility] [employer] 11/28/2022 14:59:31 section completed Not Available [facility] 10/02/2022 06:55:00 Tonsillectomy completed Not Available [facility] 10/02/2022 06:55:00 Back Surgery completed Not Available [facility] 10/02/2022 06:55:00 procedure on knee completed Not Available [facility] 10/02/2022 06:55:00 Cholecystectomy completed Not Available [facility] 10/02/2022 06:55:00 Colonoscopy completed Not Available [facility] 10/02/2022 06:55:00 Imaging Results None recorded. Procedure Notes None recorded. Medical Equipment None Reported. Allergies Allergen ID Allergen Name Allergen Category Reaction Reaction Severity Criticality Documentation Date Start Date Code Code System Note Provider Name and Address Organization Details Recorded Time 14000 Lyrica medicatio n edema Not available Not available 10/02/2022 93948 1 RxNorm Not Available [facility] 3 07:01:13 22479 adhesive tape environme nt,medica tion swelling Not available Not available 10/02/2022 Not Available [facility] 3 07:01:13 14517 Ativan medicatio n Not available Not available Not available 11/28/2022 63660 9 RxNorm Dayanna Manzano RN null, [place] - [place] [employer] 14:49:18 Medications Name Sig Start Date Stop [...] completed Patient wants to go back to [facility]. Not Available Not Available Not Available [...] Not Available Not Available Not Available Afluria 4069-5625 45 mcg (15 mcg x 3)/0.5 mL [...] Available Not Available No t Available Afluria 5836-0063 (PF) 45 mcg (15 mcg x 3)/0.5 mL intramusc ular syringe TO BE ADMINIST ERED BY [employer] FOR IMMUNIZA TION active Not Available Not Available No t Available Flucelvax Quad 9404-1786 (PF) 60 mcg (15 mcg x 4)/0.5 [...] verbal numeric rating [Score] - Reported Systolic And Diastolic Provider Name and Address Organization Details Last Updated DateTime 4 147.32 cm 30.6 kg/m2 76033.9 4 g 97.4 [degF] 67 /min 20 /min 98 % 98 % 0 160/100 mm[Hg] Dayanna Manzano RN [facility] [employer] [facility] 4 12:13:02 Date Recorded Body mass index (BMI) Body height Oxygen saturation Oxygen saturation in Arterial blood by Pulse oximetry Heart rate Respiratory rate Body temperature Body weight Systolic And Diastolic Provider Name and Address Organization Details Last Updated DateTime 3 34.8 kg/m2 147.32 cm 97 % 97 % 82 /min 16 /min 97.7 [degF] 65844.7 7 g 117/78 mm[Hg] Not Available [facility] 3 06:56:57 Date Recorded Body mass index (BMI) Body height Oxygen saturation Oxygen saturation in Arterial blood by Pulse oximetry Heart rate Body temperature Body weight Systolic And Diastolic Provider Name and Address Organization Details Last Updated DateTime 3 34.3 kg/m2 147.32 cm 93 % 93 % 60 /min 96.8 [degF] 53860.1 5 g 128/70 mm[Hg] Not Available [facility] 3 06:56:57 Date Recorded Body height Body mass index (BMI) Body weight Body temperature Heart rate Respiratory rate Oxygen saturation Oxygen saturation in Arterial blood by Pulse oximetry Pain severity - 0-10 verbal numeric rating [Score] - Reported Systolic And Diastolic Provider Name and Address Organization Details Last Updated DateTime 3 147.32 cm 30.3 kg/m2 20801.8 9 g 98 [degF] 74 /min 16 /min 97 % 97 % 0 110/80 mm[Hg] Dayanna Manzano RN [facility] [employer] [facility] 3 14:57:01 Date Recorded Body height Body mass index (BMI) Body weight Body temperature Heart rate Oxygen saturation Oxygen saturation in Arterial blood by Pulse oximetry Pain severity - 0-10 verbal numeric rating [Score] - Reported Systolic And Diastolic Provider Name and Address Organization Details Last Updated DateTime 3 147.32 cm 29.3 kg/m2 35703.9 3 g 95.9 [degF] 79 /min 96 % 96 % 0 128/80 mm[Hg] Dayanna Manzano RN [place] - [facility] 3 14:07:08 Social History Question Answer Notes LastModified by Organizat ion Details LastModified Time Tobacco Smoking Status Never Smoker Not Available [facility] 10/02/2022 06:54:52 Do You Have An Advance Directive? No Packet MIGRATION.35049 93894 Information not available 10/02/2022 Are You Blind Or Do You Have Difficulty Seeing? No MIGRATION.54648 97694 Information not available 10/02/2022 Is Blood Transfusion Acceptable In An Emergency? Yes Information not available 11/28/2022 What Is Your Level Of Caffeine Consumption? Heavy MIGRATION.17844 60727 Information not available 10/02/2022 How Much Tobacco Do You Chew? None MIGRATION.21393 25238 Information not available 10/02/2022 What Is Your Code Status? Full Code [email or web address] Information not available 11/28/2022 In The 14 Days Before Symptom Onset, Have You Had Close Contact With A Laboratory-confir med COVID-19 While That Case Was Ill? No MIGRATION.92671 12574 Information not available 10/02/2022 In The 14 Days Before Symptom Onset, Have You Had Close Contact With A Person Who Is Under Investigation For COVID-19 While That Person Was Ill? No MIGRATION.18736 34234 Information not available 10/02/2022 Are You Deaf Or Do You Have Serious Difficulty Hearing? No MIGRATION.17363 39198 Information not available 10/02/2022 What Type Of Diet Are You Following? REGULAR MIGRATION.45886 41570 Information not available 10/02/2022 Which Illicit Or Recreational Drugs Have You Used? None MIGRATION.84762 13996 Information not available 10/02/2022 Have There Been Any Changes To Your Family Or Social Situation? No MIGRATION.10210 37573 Information not available 10/02/2022 Do You Use Insect Repellent Routinely? No MIGRATION.73343 83469 Information not available 10/02/2022 Where Do You Live? [facility] MIGRATION.23439 51322 Information not available 10/02/2022 Do You Have A Medical Power Of Solutions Operator? No MIGRATION.92280 35424 Information not available 10/02/2022 What Was The Date Of Your Most Recent Tobacco Screening? 01/23/2021 MIGRATION.71994 17763 Information not available 10/02/2022 Do You Have Any Pets? Yes MIGRATION.29395 81813 Information not available 10/02/2022 What Is Your Relationship Status? MIGRATION.44336 90869 Information not available 10/02/2022 Do You Use Your Seat Belt Or Car Seat Routinely? Yes MIGRATION.18710 74117 Information not available 10/02/2022 Do You Have Smoke And Carbon Monoxide Detectors In Your Home? Yes MIGRATION.95416 00937 Information not available 10/02/2022 Are There Any Smokers In Your House? No Information not available 11/28/2022 How Much Tobacco Do You Smoke? No MIGRATION.49008 13485 Information not available 10/02/2022 Do You Participate In Social Media? Yes MIGRATION.22196 82513 Information not available 10/02/2022 Do You Use Sunscreen Routinely? No MIGRATION.20252 84135 Information not available 10/02/2022 Have You Recently Traveled Abroad? No MIGRATION.66019 33047 Information not available 10/02/2022 Do You Have Difficulty Walking Or Climbing Stairs? Yes MIGRATION.41990 57323 Information not available 10/02/2022 Sex: Female Functional Status Question Answer Note LastModified by [place] [employer] Details LastModified Time What is your level of alcohol consumption? None MIGRATION.968653 8922 Information not available 10/02/2022 Do you or have you ever used smokeless tobacco? Never used smokeless tobacco MIGRATION.952462 4921 Information not available 10/02/2022 Do you have transportation difficulties? No MIGRATION.041674 6236 Information not available 10/02/2022 Are you able to walk independently without assistance or assistive devices? NODEP Information not available 11/28/2022 Do you have difficulty doing errands alone? Yes Information not available 11/28/2022 Are you able to care for yourself independently? Yes MIGRATION.101700 0927 Information not available 10/02/2022 What is your occupation? Retired MIGRATION.499944 8435 Information not available 10/02/2022 Do you have difficulty dressing, bathing, grooming, or toileting? No MIGRATION.822665 4954 Information not available 10/02/2022 Do you or have you ever used e-cigarettes or vape? Never used electronic cigarettes MIGRATION.074585 3047 Information not available 10/02/2022 What is your exercise level? None MIGRATION.654248 1548 Information not available 10/02/2022 Mental Status Question Answer Note LastModified by Organizat ion Details LastModified Time Do you feel stressed (tense, restless, nervous, or anxious, or unable to sleep at night)? [id number] MIGRATION.76545174 26 Information not available 10/02/2022 Do you have difficulty concentrating, remembering or making decisions? Yes MIGRATION.20303231 26 Information not available 10/02/2022 Family History Relationship Description Onset Age of this Age Resolved Age Notes LastModified by Organization Details LastModified Time Mother Family history of breast cancer gene BRCA mutation MIGRATION.100 [id number] Not available 10/02/2022 06:55:01 Paternal Grandfather Malignant neoplasm of colon MIGRATION.072 4256628 Not available 10/02/2022 06:55:01 Paternal Grandmother Malignant neoplasm of colon MIGRATION.904 8791713 Not available 10/02/2022 06:55:01 Medical History Condition [...] Recorded Time Tdap 3 completed Not Available [facility] 08/27/2023 07:03:00 RSV, recombinant, protein subunit RSVpreF, adjuvant reconstituted, 0.5 mL, PF 3 completed Not Available [facility] 08/27/2023 07:03:00 SARS-COV-2 (COVID-19) vaccine, UNSPECIFIED 1 completed Not Available [facility] 08/27/2023 07:03:00 Influenza, high-dose, quadrivalent, PF 2 completed Not Available [facility] 08/27/2023 07:03:00 Influenza, high-dose, quadrivalent, PF 1 completed Not Available [facility] 08/27/2023 07:03:00 COVID-19 Non-US Vaccine, UNSPECIFIED 1 completed Not Available [facility] 08/27/2023 07:03:00 SARS-COV-2 (COVID-19) vaccine, UNSPECIFIED 1 completed Not Available [facility] 08/27/2023 07:03:00 pneumococcal polysaccharide PPV23 0 completed Not Available [facility] 08/27/2023 07:03:00 Influenza, high-dose, trivalent, PF 8 completed Not Available [facility] 08/27/2023 07:03:00 Pneumococcal conjugate PCV 13 5 completed Not Available [facility] 08/27/2023 07:03:00 Influenza, split virus, trivalent, preservative 3 completed Not Available [facility] 08/27/2023 07:03:00 Tdap 2 completed Not Available [facility] 08/27/2023 07:03:00 Influenza, split virus, quadrivalent, PF 6 completed Not Available [facility] 08/27/2023 07:03:00 Pneumococcal conjugate PCV 13 5 completed Not Available [facility] 08/27/2023 07:03:00 Influenza, split virus, trivalent, preservative 4 completed Not Available [facility] 08/27/2023 07:03:00 Influenza, split virus, quadrivalent, preservative 5 completed Not Available [facility] 08/27/2023 07:03:00 zoster live 4 completed Not Available [facility] 08/27/2023 07:03:00 Past Encounters Encounter ID Performer Location Encounter Start Date Encounter Closed Date Diagnosis/Indication Diagnosis SNOMED-CT Code Diagnosis ICD10 Code Diagnosis IMO Codes Diagnosis Note [id number] Joe Cárdenas MD [facility] [address] [address] 11/09/2020 00:00:00 11/10/2020 18:43:13 [id number] _ATHN_MIGR ATION_1 _ATHENA_M IGRATION_ DEFAULT_1 _1 , 01/03/2021 00:00:00 01/03/2021 15:41:39 [id number] [facility] [place] [address] [place] [address] 01/23/2021 00:00:00 01/23/2021 19:30:45 [id number] Joe Cárdenas MD [facility] [place] [address] [place] [address] 03/05/2021 00:00:00 03/05/2021 11:47:09 [id number] Joe Cárdenas MD [facility] [address] [place] [address] 05/11/2021 00:00:00 05/11/2021 17:50:50 [id number] Joe Cárdenas MD [facility] [place] [address] [place] [address] 06/19/2021 00:00:00 06/19/2021 19:33:00 [id number] [facility] [place] [address] [place] [address] 06/21/2021 00:00:00 06/21/2021 16:57:17 [id number] [facility] [place] [address] [place] [address] 07/23/2021 00:00:00 07/23/2021 13:47:23 [id number] Joe Cárdenas MD [facility] [place] [address] [place] [address] 08/15/2021 00:00:00 08/15/2021 16:27:16 [id number] Joe Cárdenas MD [facility] [place] [address] [place] [address] 09/07/2021 00:00:00 09/07/2021 12:57:10 [id number] Joe Cárdenas MD [facility] [place] [address] [facility] [place] [address] 10/10/2021 00:00:00 10/10/2021 12:23:16 [id number] S_Histor ic_[facility]way [facility] [place] [address] [place] [address] 11/07/2021 00:00:00 11/07/2021 16:01:42 [id number] Joe Cárdenas MD [facility] [place] [address] [place] [address] 11/14/2021 00:00:00 11/14/2021 15:15:31 [id number] MD GELY [facility] [place] [address] [place] [address] 01/17/2022 00:00:00 01/18/2022 17:48:51 [id number] JANES Jean [facility] [place] [address] [place] [address] 02/19/2022 00:00:00 02/19/2022 16:22:11 [id number] JANES Jean [facility] [place] [address] [place] [address] 04/02/2022 00:00:00 04/02/2022 15:56:46 [id number] Joe Cárdenas MD [facility] [place] [address] [place] [address] 06/06/2022 00:00:00 06/06/2022 17:39:31 [id number] Joe Cárdenas MD [facility] [place] [address] [place] [address] 08/16/2022 00:00:00 08/16/2022 12:19:29 [id number] Joe Cárdenas MD [facility] [place] [place] [address] [place] [address] 09/20/2022 00:00:00 09/20/2022 11:04:[id number] Evie Yepez, LANE ATTENDANT-BC [facility] Pulmonolo [facility] [place] [address] [place] [address] 10/01/2022 00:00:00 10/01/2022 15:54:32 [id number] Dayanna Hogan NP [address] [address] 11/28/2022 14:39:09 11/28/2022 15:53:35 Hemifacial spasm 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 Foreman and will be seeing Dr. Tyler at [facility] for movement disorder clinic.No change in current meds. [id number] Dayanna Hogan NP [address] [address] 01/17/2023 13:56:27 01/17/2023 16:20:21 Asthma [id number] J45.909 Albuterol HFA Hypothyroidism 38373460 E03.9 Levothyrox ine 150 mcg po daily. Hyperlipidemia 80352652 E78.5 low fat diet. Gastroesop hageal reflux disease 705714774 K21.9 stable Restless l egs syndrome 42790422 G25.81 ropinirole 0.25 mg po nightly. Depressive disorder 3548 9007 F32.9 Bupropion HCL SR 150 mg po bid.duloxe naren 60 mg po daily. Iron defic iency anemia 24935141 D50.9 ferrous sulfate 325 mg po daily. Allergic rhinitis 022813 04 J30.9 montelukas t 10 mgLoratadi ne 10 mg. Screening for malignant neoplasm of breast 515521527 Z12.39 mammogram ordered 01/17/23 Postmenopausal state 764 56714 Z78.0 Dexa ordered 01/17/23 [id number] Dayanna Hogan NP [address] [address] 08/15/2023 11:47:05 08/15/2023 16:16:52 Asthma 868742055 J45.909 Albuterol HFA Hypothyroidism 72074176 E03.9 Levothyrox ine 125 mcg po daily to levothyrox ine 100 mcg po daily.TSh not existent. Reduced levothyrox ine. new dose sent. Labs in 8 weeks.Chol esterol controlled . 07/14/23 new orders due before refill. Currently on levothyrox ine 100 mcg po daily.07/04 11/24 TSh low. Reduce to levothyrox ine 88 mcg po daily. Hyperlipidemia 75372782 E78.5 low fat diet. Essential hypertension 06343014 I10 monitor prn Gastroesop hageal reflux disease 792438517 K21.9 stable Restless l egs syndrome 21785312 G25.81 ropinirole 0.25 mg po nightly. Depressive disorder 3548 9007 F32.9 Bupropion HCL SR 150 mg po bid. Try for bupropion HCL XL 300 mg po daily for cost savings.du loxetine 60 mg po daily. Iron defic iency anemia 97951753 D50.9 ferrous sulfate 325 mg po daily. Allergic rhinitis 042427 04 J30.9 montelukas t 10 mgLoratadi ne 10 mg. 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 Hypokalemia 67271092 E87 .6 Health Concerns Section Related Observation LastModified by Organization Detai ls LastModified Time None Recorded Concern Status LastModified by Organization Details LastModified Time None Recorded Advance Directives Directive N: Packet Payers Insurance Date Sequence Insurance Name Policy Number Policy Luna Covered Member ID Luna Member ID Guarantor Name 08/12/2023 1 [place] Alisa Gonzalez [id number] Alisa Gonzalez 08/18/2023 2 AARP (MEDICARE SUPPLEMENT) Alisa Gonzalez [id number] Alisa Gonzalez Notes Date Note Type Note Provider Name and Address Organization Details Recorded Time 11/28/2022 text/html Here for Emergency Follow up. States she was having left [...] give her relief from legs being restless. [facility] notes not received previous were brought to office today and scanned into [employer]. Will be seeing sleep specialist Dr. Kumari December 23, 2022. Was seeing evie yepez professor of environmental science before but Dr. Foreman suggested a MD may give more options.Pt has RLS.Will be seeing movement specialist at [facility] Dr Tyler January 2023. Dayanna Hogan NP [address], [place], [address], virocyt 11/28/2022 15:52:38 01/17/2023 text/html Here for check up. Asthma- sttableThyroid-lipid -htn- Home bp doing well.Gerd- [...] out. On walker. Dayanna Hogan NP [address], [place], [address], [email or web address] 01/17/2023 16:06:43 08/15/2023 text/html Here for check up. Asthma- stableThyroid- no complaintslipid- trying to eat well.htn- Home bp doing well.Gerd- stableRLS- still feeling daria all the time as well as whole body.Depression- Stable on cymbalta and bupropion. Clonazepam added (to help claustrophobia with CPAP), Oxcarbazepine (for trigeminal neuralgia), and upped dose of carbidopa/levodopa. Per neurology.Was seeing Dr. Foreman. Dayanna Hogan NP [address], [place], [address], [place] [facility] 08/15/2023 17:01:26 OBGyn Episode No OBEpisode recorded.
--- OUTSIDE RECORDS SUMMARY | 2025-06-22 17:35 | XMS_ITS | Encounter Summary ---
Author Organization [facility] Address [address] [facility] [place] [address] Care Team Providers Care Sergeant Of Corrections Name Role Phone Dayanna Aj Adam BUS CLEANER-ASSOCIATE CREATIVE DIRECTOR Primary Care Provider Reason for Visit * Reason Onset Date Comments Occupational Therapy 06/20/2025 Encounter Details Date Type Department Care Team (Late st Contact Info) Description 06/20/2025 Telephone [facility] Orthopedics [address] [place] [address] [address] Duncan Sharp DO [address] [address] Occupational Therapy Social History Tobacco Use Types Packs/Day Years [...] and heating? Not hard at all 06/09/2025 [facility] - Occupational Stress [...] any time in the past 12 m [facility], were you homeless or living in a retirement (including now)? No 06/09/2025 Education Answer Date [...] difficulty? Answer Date of Assessment Author No 06/09/2025 3:11 PM Lanie Lerner RN * Is person blind or have serious difficulty seeing? Answer Date of Assessment Author No 06/09/2025 3:11 PM Lanie Lerner RN * Does person have serious difficulty walking/climbing stairs? Answer Date of Assessment Author No 06/09/2025 3:11 PM Lanie Lerner RN * Does person have difficulty dressing/bathing? Answer Date of Assessment Author No 06/09/2025 3:11 PM Lanie Lerner RN * Does person have difficulty doing errands alone? Answer Date of Assessment Author No 06/09/2025 3:11 PM Lanie Lerner RN documented as of this encounter Mental Status * Does person have difficulty concentrating/remembering/making decisions? Answer Entry Date Author No 06/09/2025 3:11 PM Lanie Lerner RN documented in this encounter Miscellaneous Notes * Telephone Encounter - Carlyn Schafer Licensed Excellence Leader - 06/21/2025 10:35 AM CST Called and LMOR for verbal order TESTBOARD WORKER * Telephone Encounter - Ebony Gomez - 06/20/2025 2:41 PM CST Who is calling? Armen- [facility] If other than self is caller listed on the HIPAA? no What is the reason for call? Calling to request a verbal order for additional occupational therapy visits for once a week for six weeks. Expected Response from the Clinic? ( ex. Call back, etc..) please call Armen back [phone] Did you notify caller it would take 24-48 hours for the office to get back to them? YES TESTBOARD WORKER documented in this encounter Plan of Treatment Upcoming Encounters Date Type Department Care Team (Late st Contact Info) Description 06/24/2025 10:30 AM TOLL TESTBOARD WORKER Office Visit [facility] Orthopedics [address] [place] [address] Aleksandr Ambrose PA-C [address] [place] [address] [place] [phone] 07/20/2025 10:50 AM TOLL TESTBOARD WORKER Office Visit [facility] Orthopedics [address] [place] [address] Duncan Sharp, DO [address] [place] [address] 11/23/2025 2:00 PM CDT Office Visit [facility] - Neurology [address] [facility], [place] [phone] Katie Augustin APRN-ARIEL [address] [place] [address] [place] [address] documented as of this encounter Goals Goal [...] on filedocumented in this encounter Care Teams Sergeant Of Corrections Relationship Specialty Start Date End Date Dayanna Aj, BUS CLEANER-ASSOCIATE CREATIVE DIRECTOR [address] [place] [phone] PCP - General Nurse Practitioner Family 10/08/23 documented as of this encounter
--- OUTSIDE RECORDS SUMMARY | 2025-06-22 17:35 | XMS_ITS | Encounter Summary ---
Author Organization [facility] Address [address] [facility] [place] [address] Care Team Providers Care Belt Picker Name Role Phone Dayanna Aj Adam TURNING MACHINE OPERATOR HELPER-CAUSTIC LIQUOR MAKER Primary Care Provider Reason for Visit * Reason Onset Date Comments Follow-up 06/17/2025 Change In Condition/behavior 06/17/2025 Encounter Details Date Type Department Care Team (Late st Contact Info) Description 06/17/2025 Telephone [facility] Orthopedics [facility] [place] [address] Duncan Sharp [address] [address] Follow-up; Change In Condition/behavior Social History Tobacco Use Types Packs/Day Years [...] and heating? Not hard at all 06/09/2025 [facility] of Occupat [facility] - Occupational Stress Questionnaire Answer Date Recorded [...] [facility] in the [facility] were you homeless or living in a custodial (including now)? No 06/09/2025 Education Answer Date [...] encounter Miscellaneous Notes * Telephone Encounter - Ebony Gomez - 06/17/2025 12:31 PM CST The patient called reporting patient is in severe pain with a pain level of 10 . The call was warmtransferred to Matthew at the provider's office. RPRISE RECORDS ANALYST * Telephone Encounter - Aleksandr Ambrose PA-C - 06/17/2025 12:28 PM ENTERPRISE RECORDS ANALYST The patient's spouse called in to let us know that she was experienced some some increased discomfort to the back of her heel and leg after having her splint redressed. She has recently taken her pain medications. I recommended that she continue to elevate the extremity and let the pain medication work. We recommended that they could loosen the dressings as needed. If the pain continues, they should call back and come into the [facility] office to get fitted for a boot instead of the splint. The patient's spouse verbalizes understanding. RPRISE RECORDS ANALYST documented in this encounter Plan of Treatment Upcoming Encounters Date Type Department Care Team (Late st Contact Info) Description 06/24/2025 10:30 AM ENTERPRISE RECORDS ANALYST Office Visit [facility] Orthopedics [address] [place] [address] Aleksandr Ambrose PA-C [address] [place] [address] [place] [address] 07/20/2025 10:50 AM ENTERPRISE RECORDS ANALYST Office Visit [facility] Health Orthopedics [address] [place] [address] Aron DuncanDO [address] [place] [address] 11/23/2025 2:00 PM CDT Office Visit [facility] - Neurology [address] [facility] [place] [address] Katie Augustin APRN-CAUSTIC LIQUOR MAKER [address] [place] [phone] documented as of this encounter Goals [...] on filedocumented in this encounter Care Teams Belt Picker Relationship Specialty Start Date End Date Dayanna Aj APRN-CAUSTIC LIQUOR MAKER [address] [place] [address] PCP - General Nurse Practitioner Family 10/08/23 documented as of this encounter
--- OUTSIDE RECORDS SUMMARY | 2025-06-22 17:36 | XMS_ITS | Encounter Summary ---
Author Organization [facility] Address [address] [place] [address] Care Team Providers Care Line Haul Driver Name Role Phone Dayanna Aj Adam HOME HEALTH ADMINISTRATOR-CLINICAL SUPPORT NURSE Primary Care Provider Reason for Visit * Reason Onset Date Comments Physical Therapy 06/16/2025 Occupational Therapy 06/16/2025 Encounter Details Date Type Department Care Team (Late st Contact Info) Description 06/16/2025 Telephone [facility] Orthopedics [address] [address] Duncan Sharp DO [address] [address] Physical Therapy; Occupational Therapy Social History Tobacco Use Types [...] and heating? Not hard at all 06/09/2025 [facility] [place] of Occupat ional Health - Occupational Stress [...] any time in the past [address] [facility], were you homeless or living in a penitentiary (including now)? No 06/09/2025 Education Answer Date [...] encounter Miscellaneous Notes * Telephone Encounter - Jud Delaney - 06/16/2025 11:36 AM MARKETING FINANCIAL ANALYST Who is calling? Jacquie Cordero If other than self is caller listed on the HIPAA? no What is the reason for call? Jacquie called stating she started care with the patient yesterday.She will have nursing 1 week fot 9 weeks and OT/PT eval. Expected Response from the Clinic? ( ex. Call back, etc..) call back if needed. Did you notify caller it would take 24-48 hours for the office to get back to them? NOT APPLICABLE ETING FINANCIAL ANALYST documented in this encounter Plan of Treatment Upcoming Encounters Date Type Department Care Team (Late st Contact Info) Description 06/24/2025 10:30 AM MARKETING FINANCIAL ANALYST Office Visit [facility] Health Orthopedics [address] [place] [address] Aleksandr Ambrose PA-C [facility] [address] [place] [phone] 07/20/2025 10:50 AM MARKETING FINANCIAL ANALYST Office Visit [facility] Orthopedics [address] [place] [address] Duncan Sharp DO [facility] [address] [place] [phone] 11/23/2025 2:00 PM CDT Office Visit [facility] - Neurology [address] [facility] [place] [phone] Katie Augustin APRN-CNP [address] [place] [phone] documented as of this encounter Goals Goal [...] on filedocumented in this encounter Care Teams Line Haul Driver Relationship Specialty Start Date End Date Dayanna Aj APRN-CLINICAL SUPPORT NURSE [address] [place] [phone] PCP - General Nurse Practitioner Family 10/08/23 documented as of this encounter
--- OUTSIDE RECORDS SUMMARY | 2025-08-12 18:00 | XMS_ITS | Clinical Summary ---
Author Organization Unknown Care Team Providers Care Snapper On Name Role Phone DIMA ARNOLD, DEBBY Unavailable Unavailable NOEMI MCGEE, MARTELL Unavailable Unavailabl e Payers Payer Name Policy Type Policy Number Effective Date Expira tion Date MEDICARE - [place] - [facility] [id number] Problems Condition Name Condition Details Condition Category Status Onset Date Resolution Date Last Treatment Date Treating Clinician Comments DISPL BIMALLEOL FX R LOW LEG, SUBS FOR CLOS FX W NONUNION Active 08-04 00:00: 00 Obesity, class 1 Active 08-04 00:00: 00 BODY MASS INDEX [BMI]40.0-44 .9, ADULT Active 08-04 00:00: 00 HYPOTHYROIDI SM, UNSPECIFIED Active 08-04 00:00: 00 PARKINSON'S DIS W/O DYSKINESIA, W/O MENTION OF FLUCTUATIONS Active 08-04 00:00: 00 POLYNEUROPAT HY, UNSPECIFIED Active 08-04 00:00: 00 ANXIETY DISORDER, UNSPECIFIED Active 08-04 00:00: 00 UNSPECIFIED ASTHMA, UNCOMPLICATE D Active 08-04 00:00: 00 DEPRESSION, UNSPECIFIED Active 08-04 00:00: 00 IRON DEFICIENCY ANEMIA, UNSPECIFIED Active 08-04 00:00: 00 HYPERLIPIDEM IA, UNSPECIFIED Active 08-04 00:00: 00 OBSTRUCTIVE SLEEP APNEA (ADULT) (PEDIATRIC) Active 08-04 00:00: 00 ESSENTIAL (PRIMARY) HYPERTENSION Active 08-04 00:00: 00 HYPERSOMNIA, UNSPECIFIED Active 08-04 00:00: 00 GASTRO-ESOPH AGEAL REFLUX DISEASE WITHOUT ESOPHAGITIS Active 08-04 00:00: 00 MIGRAINE, UNSP, NOT INTRACTABLE, WITHOUT STATUS MIGRAINOSUS Active 08-04 00:00: 00 RADICULOPATH Y, LUMBAR REGION Active 08-04 00:00: 00 PSEUDARTHROS IS AFTER FUSION OR ARTHRODESIS Active 08-04 00:00: 00 OTHER CHRONIC PAIN Active 08-04 00:00: 00 OTH DISRD OF BONE DENSITY AND STRUCTURE, UNSPECIFIED SITE Active 08-04 00:00: 00 OTHER DISORDERS OF PERIPHERAL NERVOUS SYSTEM Active 08-04 00:00: 00 RESTLESS LEGS SYNDROME Active 08-04 00:00: 00 PRESENCE OF NEUROSTIMULA TOR Active 08-04 00:00: 00 PRESENCE OF ARTIFICIAL KNEE JOINT, BILATERAL Active 08-04 00:00: 00 ACQUIRED ABSENCE OF OTHER ORGANS Active 08-04 00:00: 00 HISTORY OF FALLING Active 08-04 00:00: 00 Personal history of colon polyps, unspecified Active 08-04 00:00: 00 Problems related to health literacy Active 08-04 00:00: 00 ARTHRODESIS STATUS Active 08-04 00:00: 00 SOCIAL EXCLUSION AND REJECTION Active 08-04 00:00: 00 PERSONAL HISTORY OF URINARY (TRACT) INFECTIONS Active 08-04 00:00: 00 [facility] (CURRENT) USE OF ASPIRIN Active 08-04 00:00: 00 Allergies, Adverse Reactions, Alerts Allergy Name Allergy Type Status Severity Reaction(s) Onset Date Inactive Date Treating Clinician Comments LORAZEPAM Propensity to adverse reactions Active 2024-08 13:32: 47 PREGABALIN Propensity to adverse reactions Active 2024-08 13:34: 14 ADHESIVE TAPE - SILICONES Propensity to adverse reactions Active 2024-08 13:34: 24 Immunizations Ordered Immunization Name Filled Immunization Name Date Status Comments Refusal Reason COVID BOOSTER, COVID BOOSTER 2025-06-15 00:00:00 INFLUENZA, TIV (INACTIVATED) 2025-06-15 00:00:00 Vital Signs Vital Name Observation Time Observation Value Commen ts Temperature 2025-06-22 09:33:00.000 97.6 [degF] Temperature 2025-06-20 10:47:00.000 98.6 [degF] Temperature 2025-06-16 09:18:00.000 97 [degF] Temperature 2025-06-15 14:23:00.000 98.5 [degF] BMI (%) 2025-06-15 13:44:30.000 42 kg/m2 Height 2025-06-15 13:44:20.000 58 [in_us] Pulse 2025-06-22 09:33:00.000 76 /min Pulse 2025-06-20 10:47:00.000 73 /min Pulse 2025-06-16 09:18:00.000 64 /min Pulse 2025-06-15 14:23:00.000 79 /min O2 Saturation (%) 2025-06-22 09:33:00.000 96 % O2 Saturation (%) 2025-06-20 10:47:00.000 97 % O2 Saturation (%) 2025-06-16 09:18:00.000 98 % O2 Saturation (%) 2025-06-15 14:23:00.000 99 % Respirations 2025-06-22 09:33:00.000 16 /min Respirations 2025-06-20 10:47:00.000 18 /min Respirations 2025-06-16 09:18:00.000 18 /min Respirations 2025-06-15 14:23:00.000 18 /min Weight (lbs) 2025-06-15 13:44:30.000 204 [lb_av] Systolic Blood Pressure 2025-06-22 09:35:00.000 183 mm [Hg] Systolic Blood Pressure 2025-06-22 09:35:00.000 179 mm [Hg] Systolic Blood Pressure 2025-06-22 09:34:00.000 160 mm [Hg] Systolic Blood Pressure 2025-06-20 10:47:00.000 128 mm [Hg] Systolic Blood Pressure 2025-06-16 09:18:00.000 144 mm [Hg] Systolic Blood Pressure 2025-06-15 14:23:00.000 120 mm [Hg] Diastolic Blood Pressure 2025-06-22 09:35:00.000 94 mm [Hg] Diastolic Blood Pressure 2025-06-22 09:35:00.000 110 m m[Hg] Diastolic Blood Pressure 2025-06-22 09:34:00.000 85 mm [Hg] Diastolic Blood Pressure 2025-06-20 10:47:00.000 72 mm [Hg] Diastolic Blood Pressure 2025-06-16 09:18:00.000 78 mm [Hg] Diastolic Blood Pressure 2025-06-15 14:23:00.000 75 mm [Hg] Plan of Treatment Planned Activity Planned Date Details Comments Future Scheduled Test SKILLED NU RSE TO EVALUATE PATIENT, IDENTIFY PRIMARY AND CO-MORBID CONDITIONS CODED PER CODING GUIDELINES, AND DEVELOP PATIENT SPECIFIC PLAN OF CARE THAT INCLUDES PATIENT GOAL FOR HOME HEALTH. PLAN OF CARE TO INCLUDE 3 PRN VISIT(S) FOR OASIS DATA COLLECTION/COMPREHENSIVE ASSESSMENT AT TIMEPOINTS PER FEDERAL REGULATIONS. THIS INCLUDES VISITS FOR BRE, RECERT, SCIC, AND/OR DC. [code = SKILLED NURSE TO EVALUATE PATIENT, IDENTIFY PRIMARY AND CO-MORBID CONDITIONS CODED PER CODING GUIDELINES, AND DEVELOP PATIENT SPECIFIC PLAN OF CARE THAT INCLUDES PATIENT GOAL FOR HOME HEALTH. PLAN OF CARE TO INCLUDE 3 PRN VISIT(S) FOR OASIS DATA COLLECTION/COMPREHENSIVE ASSESSMENT AT TIMEPOINTS PER FEDERAL REGULATIONS. THIS INCLUDES VISITS FOR BRE, RECERT, SCIC, AND/OR DC.] Future Scheduled Test [facility] AGENCY MAY ACCEPT ORDERS FROM THE FOLLOWING PHYSICIANS: ABRASIVE WORKER/TREATING PROVIDERS [code = HOME HEALTH AGENCY MAY ACCEPT ORDERS FROM THE FOLLOWING PHYSICIANS: ABRASIVE WORKER/TREATING PROVIDERS] Future Scheduled Test SKILLED NU RSE TO ASSESS ANXIETY AND PROVIDE ASSISTANCE TO PATIENT FOR UNDERSTANDING AND MANAGEMENT OF FEELINGS. [code = SKILLED NURSE TO ASSESS ANXIETY AND PROVIDE ASSISTANCE TO PATIENT FOR UNDERSTANDING AND MANAGEMENT OF FEELINGS.] Future Scheduled Test OCCUPATION AL THERAPIST TO EVALUATE PATIENT FOR WEAKNESS [code = OCCUPATIONAL THERAPIST TO EVALUATE PATIENT FOR WEAKNESS] Future Scheduled Test SKILLED NU RSE FOR O/A AND SKILLED TEACHING RELATED TO SIGNS AND SYMPTOMS OF INFECTION AND INFECTION CONTROL MEASURES. [code = SKILLED NURSE FOR O/A AND SKILLED TEACHING RELATED TO SIGNS AND SYMPTOMS OF INFECTION AND INFECTION CONTROL MEASURES.] Future Scheduled Test NEED FOR S KILLED TEACHING AND INTERVENTION RELATED TO SURGICAL SITE TO RIGHT ANKLE . SKILLED NURSE OR TRAINED PATIENT/CAREGIVER KEEP DRESSING CLEAN, DRY, AND INTACT. 1-2 PRN SKILLED NURSE VISITS FOR WOUND CARE DUE TO COMPLICATIONS. SKILLED NURSE TO OBTAIN WOUND CULTURE PRN S/S OF INFECTION. WOUND CARE WILL BE PERFORMED BY TRAINED CAREGIVER ON DAYS WHEN SKILLED NURSE IS NOT SCHEDULED FOR A VISIT. DISCONTINUE WOUND CARE/SUPPLIES ONCE WOUND IS HEALED. [code = NEED FOR SKILLED TEACHING AND INTERVENTION RELATED TO SURGICAL SITE TO RIGHT ANKLE . SKILLED NURSE OR TRAINED PATIENT/CAREGIVER KEEP DRESSING CLEAN, DRY, AND INTACT. 1-2 PRN SKILLED NURSE VISITS FOR WOUND CARE DUE TO COMPLICATIONS. SKILLED NURSE TO OBTAIN WOUND CULTURE PRN S/S OF INFECTION. WOUND CARE WILL BE PERFORMED BY TRAINED CAREGIVER ON DAYS WHEN SKILLED NURSE IS NOT SCHEDULED FOR A VISIT. DISCONTINUE WOUND CARE/SUPPLIES ONCE WOUND IS HEALED.] Future Scheduled Test SKILLED NU RSE FOR O/A OF SELF-CARE DEFICITS AND TO PROVIDE TEACHING RELATED TO SAFE PROVISION OF ADLS. [code = SKILLED NURSE FOR O/A OF SELF-CARE DEFICITS AND TO PROVIDE TEACHING RELATED TO SAFE PROVISION OF ADLS.] Future Scheduled Test PHYSICAL T HERAPIST TO EVALUATE PATIENT FOR WEAKNESS [code = PHYSICAL THERAPIST TO EVALUATE PATIENT FOR WEAKNESS] Future Scheduled Test SKILLED NU RSE TO INSTRUCT PATIENT/CAREGIVER ON SIGNS AND SYMPTOMS AND METHODS TO MANAGE PARKINSON'S DISEASE PROGRESSION. [code = SKILLED NURSE TO INSTRUCT PATIENT/CAREGIVER ON SIGNS AND SYMPTOMS AND METHODS TO MANAGE PARKINSON'S DISEASE PROGRESSION.] Future Scheduled Test SKILLED NU RSE TO INSTRUCT PATIENT/CAREGIVER ON PREVENTION OF SEPSIS, AND SIGNS AND SYMPTOMS OF SEPSIS TO REPORT. [code = SKILLED NURSE TO INSTRUCT PATIENT/CAREGIVER ON PREVENTION OF SEPSIS, AND SIGNS AND SYMPTOMS OF SEPSIS TO REPORT.] Future Scheduled Test SKILLED NU RSE FOR O/A AND SKILLED TEACHING RELATED TO SIGNS AND SYMPTOMS AND MANAGEMENT OF RIGHT ANKLE ARTHRALGIA S/P HARDWARE REMOVAL AND REVISION TIBIOTALOCALCANEAL ARTHRODESIS WITH BONE GRAFTING. [code = SKILLED NURSE FOR O/A AND SKILLED TEACHING RELATED TO SIGNS AND SYMPTOMS AND MANAGEMENT OF RIGHT ANKLE ARTHRALGIA S/P HARDWARE REMOVAL AND REVISION TIBIOTALOCALCANEAL ARTHRODESIS WITH BONE GRAFTING.] Future Scheduled Test VIRTUAL SIT FREQUENCY: 6 PRN VIRTUAL VISITS MAY BE PERFORMED UTILIZING TELECOMMUNICATIONS SYSTEM TO OPTIMIZE SKILLED SERVICES FURNISHED ON THE PLAN OF CARE. SKILLED NURSE TO ESTABLISH SUPPORT MEASURES TO MINIMIZE RISK OF REHOSPITALIZATION, AND INSTRUCT PATIENT/CAREGIVER ON METHODS TO REDUCE AVOIDABLE HOSPITALIZATION. [code = VIRTUAL VISIT FREQUENCY: 6 PRN VIRTUAL VISITS MAY BE PERFORMED UTILIZING TELECOMMUNICATIONS SYSTEM TO OPTIMIZE SKILLED SERVICES FURNISHED ON THE PLAN OF CARE. SKILLED NURSE TO ESTABLISH SUPPORT MEASURES TO MINIMIZE RISK OF REHOSPITALIZATION, AND INSTRUCT PATIENT/CAREGIVER ON METHODS TO REDUCE AVOIDABLE HOSPITALIZATION.] Future Scheduled Test PATIENT HERNANDES S A RISK OF HOSPITALIZATION AND ED USE. SKILLED NURSE TO ESTABLISH SUPPORT MEASURES TO MINIMIZE RISK OF HOSPITALIZATION AND ED USE, AND INSTRUCT PATIENT/CAREGIVER ON METHODS TO REDUCE AVOIDABLE HOSPITALIZATION AND ED USE. [code = PATIENT HAS A RISK OF HOSPITALIZATION AND ED USE. SKILLED NURSE TO ESTABLISH SUPPORT MEASURES TO MINIMIZE RISK OF HOSPITALIZATION AND ED USE, AND INSTRUCT PATIENT/CAREGIVER ON METHODS TO REDUCE AVOIDABLE HOSPITALIZATION AND ED USE.] Future Scheduled Test SKILLED NU RSE TO PROVIDE INSTRUCTION TO PATIENT/CAREGIVER RELATED TO DISCHARGE PLANNING. [code = SKILLED NURSE TO PROVIDE INSTRUCTION TO PATIENT/CAREGIVER RELATED TO DISCHARGE PLANNING.] Future Scheduled Test SKILLED NU RSE TO PERFORM ENVIRONMENTAL SAFETY RISK ASSESSMENT AND FALL RISK ASSESSMENT AND PROVIDE INSTRUCTION TO IMPLEMENT ENVIRONMENTAL SAFETY AND FALL PREVENTION STRATEGIES THROUGHOUT THE CERTIFICATION PERIOD. SKILLED NURSE WILL MAINTAIN SITUATIONAL AWARENESS AND WILL NOTIFY CLINICAL ELECTRICAL TESTER BATTERY AND PHYSICIAN/PROVIDER WITH ANY CHANGE IN CONDITION. [code = SKILLED NURSE TO PERFORM ENVIRONMENTAL SAFETY RISK ASSESSMENT AND FALL RISK ASSESSMENT AND PROVIDE INSTRUCTION TO IMPLEMENT ENVIRONMENTAL SAFETY AND FALL PREVENTION STRATEGIES THROUGHOUT THE CERTIFICATION PERIOD. SKILLED NURSE WILL MAINTAIN SITUATIONAL AWARENESS AND WILL NOTIFY CLINICAL ELECTRICAL TESTER BATTERY AND PHYSICIAN/PROVIDER WITH ANY CHANGE IN CONDITION.] Future Scheduled Test SKILLED NU RSE FOR OBSERVATION AND ASSESSMENT OF PATIENT S PAIN LEVEL AND EFFECTIVENESS OF PAIN MANAGEMENT REGIMEN. SKILLED NURSE TO INSTRUCT PATIENT/CAREGIVER REGARDING PHARMACOLOGIC AND NON-PHARMACOLOGIC PAIN CONTROL MEASURES. SKILLED NURSE TO REPORT TO PHYSICIAN IF PAIN LEVEL IS OUTSIDE OF ESTABLISHED PARAMETERS. [code = SKILLED NURSE FOR OBSERVATION AND ASSESSMENT OF PATIENT S PAIN LEVEL AND EFFECTIVENESS OF PAIN MANAGEMENT REGIMEN. SKILLED NURSE TO INSTRUCT PATIENT/CAREGIVER REGARDING PHARMACOLOGIC AND NON-PHARMACOLOGIC PAIN CONTROL MEASURES. SKILLED NURSE TO REPORT TO PHYSICIAN IF PAIN LEVEL IS OUTSIDE OF ESTABLISHED PARAMETERS.] Future Scheduled Test SKILLED NU RSE TO ASSESS PATIENT'S SKIN INTEGRITY AND INSTRUCT PATIENT/CAREGIVER ON MEASURES TO PREVENT PRESSURE ULCERS. [code = SKILLED NURSE TO ASSESS PATIENT'S SKIN INTEGRITY AND INSTRUCT PATIENT/CAREGIVER ON MEASURES TO PREVENT PRESSURE ULCERS.] Future Scheduled Test SKILLED NU RSE TO PROVIDE ASSESSMENT AND TEACHING/REINFORCEMENT OF MANAGEMENT OF DEPRESSION INCLUDING DISEASE PROCESS, MEDICATION MANAGEMENT, COPING SKILLS AND IDENTIFY CHANGES ASSOCIATED WITH DEPRESSIVE DISORDERS FOR EARLY INTERVENTION. [code = SKILLED NURSE TO PROVIDE ASSESSMENT AND TEACHING/REINFORCEMENT OF MANAGEMENT OF DEPRESSION INCLUDING DISEASE PROCESS, MEDICATION MANAGEMENT, COPING SKILLS AND IDENTIFY CHANGES ASSOCIATED WITH DEPRESSIVE DISORDERS FOR EARLY INTERVENTION.] Future Scheduled Test SKILLED NU RSE TO REVIEW PATIENT MEDICATIONS (PRESCRIPTION/OTC). INSTRUCT PATIENT/CAREGIVER ON ALL MEDICATIONS INCLUDING PURPOSE, WHEN TO TAKE, IMPORTANCE OF MEDICATION ADHERENCE, MONITORING OF EFFECTIVENESS, ADVERSE DRUG REACTIONS, POSSIBLE SIDE EFFECTS, AND WHEN TO NOTIFY AGENCY OR PHYSICIAN/PROVIDER OF ANY CONCERNS. [code = SKILLED NURSE TO REVIEW PATIENT MEDICATIONS (PRESCRIPTION/OTC). INSTRUCT PATIENT/CAREGIVER ON ALL MEDICATIONS INCLUDING PURPOSE, WHEN TO TAKE, IMPORTANCE OF MEDICATION ADHERENCE, MONITORING OF EFFECTIVENESS, ADVERSE DRUG REACTIONS, POSSIBLE SIDE EFFECTS, AND WHEN TO NOTIFY AGENCY OR PHYSICIAN/PROVIDER OF ANY CONCERNS.] Future Scheduled Test PHYSICAL T HERAPIST TO EVALUATE PATIENT SECONDARY TO FUNCTIONAL DEFICITS/SAFETY CONCERNS. PHYSICAL THERAPY TO ESTABLISH /UPGRADE/DOWNGRADE THERAPEUTIC EXERCISE PROGRAM AND INSTRUCT PATIENT/CAREGIVER ON EXERCISE PRECAUTIONS WITH WRITTEN HOME PROGRAM. MAY INCLUDE PROM, AAROM, AROM, RROM APPROPRIATE TO IMPROVE FUNCTIONAL STRENGTH AND RANGE OF MOTION. PHYSICAL THERAPY TO INSTRUCT PATIENT/CAREGIVER ON SAFE TRANSFER TECHNIQUES USING PROPER BODY MECHANICS AND EQUIPMENT. PHYSICAL THERAPY TO INSTRUCT PATIENT/CAREGIVER ON GAIT TRAINING TECHNIQUES USING APPROPRIATE ASSISTIVE DEVICE, PROPER BODY MECHANICS TO IMPROVE MOBILITY, AND PREVENT INJURY OF PATIENT AND/OR CAREGIVER. PHYSICAL THERAPY TO INSTRUCT PATIENT/CAREGIVER ON BALANCE AND BALANCE STRATEGIES TO IMPROVE SAFE MOBILITY AND REDUCE RISK FOR FALL AND INJURY PHYSICAL THERAPIST TO ASSESS BEST PRACTICE INTERVENTIONS TO ASSIST PATIENTS TO IMPROVE OR STABILIZE MEDICAL STATUS AND PREVENT RE-HOSPITALIZATION. MEASURES INCLUDING REVIEW AND IDENTIFICATION OF CONCERNS FOR THE FOLLOWING AREAS: DRUG REGIMEN, ENVIRONMENTAL SAFETY ISSUES AND FALLS, PRESSURE ULCERS, PAIN, AND DISEASE MANAGEMENT. [code = PHYSICAL THERAPIST TO EVALUATE PATIENT SECONDARY TO FUNCTIONAL DEFICITS/SAFETY CONCERNS. PHYSICAL THERAPY TO ESTABLISH /UPGRADE/DOWNGRADE THERAPEUTIC EXERCISE PROGRAM AND INSTRUCT PATIENT/CAREGIVER ON EXERCISE PRECAUTIONS WITH WRITTEN HOME PROGRAM. MAY INCLUDE PROM, AAROM, AROM, RROM APPROPRIATE TO IMPROVE FUNCTIONAL STRENGTH AND RANGE OF MOTION. PHYSICAL THERAPY TO INSTRUCT PATIENT/CAREGIVER ON SAFE TRANSFER TECHNIQUES USING PROPER BODY MECHANICS AND EQUIPMENT. PHYSICAL THERAPY TO INSTRUCT PATIENT/CAREGIVER ON GAIT TRAINING TECHNIQUES USING APPROPRIATE ASSISTIVE DEVICE, PROPER BODY MECHANICS TO IMPROVE MOBILITY, AND PREVENT INJURY OF PATIENT AND/OR CAREGIVER. PHYSICAL THERAPY TO INSTRUCT PATIENT/CAREGIVER ON BALANCE AND BALANCE STRATEGIES TO IMPROVE SAFE MOBILITY AND REDUCE RISK FOR FALL AND INJURY PHYSICAL THERAPIST TO ASSESS BEST PRACTICE INTERVENTIONS TO ASSIST PATIENTS TO IMPROVE OR STABILIZE MEDICAL STATUS AND PREVENT RE-HOSPITALIZATION. MEASURES INCLUDING REVIEW AND IDENTIFICATION OF CONCERNS FOR THE FOLLOWING AREAS: DRUG REGIMEN, ENVIRONMENTAL SAFETY ISSUES AND FALLS, PRESSURE ULCERS, PAIN, AND DISEASE MANAGEMENT.] Future Scheduled Test OCCUPATION AL THERAPIST TO EVALUATE PATIENT SECONDARY TO FUNCTIONAL DEFICITS/SAFETY CONCERNS IDENTIFIED DURING EVALUATION OCCUPATIONAL THERAPY TO INSTRUCT PATIENT/CAREGIVER ON BED MOBILITY TECHNIQUES TO IMPROVE PATIENT MOBILITY AND POSITIONING TECHNIQUES TO ENHANCE PARTICIPATION IN ADL S AND IMPROVE PATIENT COMFORT AND DECREASE RISK OF SKIN BREAKDOWN. OCCUPATIONAL THERAPY TO INSTRUCT PATIENT/CAREGIVER ON SAFE TRANSFER TECHNIQUES USING PROPER BODY MECHANICS AND EQUIPMENT TO ENHANCE PARTICIPATION IN ADL S. OCCUPATIONAL THERAPY TO ASSESS AND RECOMMEND HOME SAFETY ADAPTATIONS AND EDUCATE PATIENT /CAREGIVER ON FALL PREVENTION STRATEGIES TO ENHANCE PARTICIPATION IN ADL S. OCCUPATIONAL THERAPY TO PROVIDE INSTRUCTION IN SAFE FUNCTIONAL WHEELCHAIR MOBILITY AND/OR PROVIDE RECOMMENDATIONS AND TRAINING FOR PROPER WHEELCHAIR FIT TO ENHANCE PARTICIPATION IN ADL S. OCCUPATIONAL THERAPY TO PROVIDE PATIENT/CAREGIVER WITH INSTRUCTIONS AND RECOMMENDATIONS TO IMPROVE ADL S INCLUDING SPONGE BATHING, SHOWERING, AND LOWER BODY DRESSING WHILE USING APPROPRIATE ADAPTIVE DEVICES RECOMMENDED. OCCUPATIONAL THERAPIST TO ASSESS BEST PRACTICE INTERVENTIONS TO ASSIST PATIENTS TO IMPROVE OR STABILIZE MEDICAL STATUS AND PREVENT RE-HOSPITALIZATION. MEASURES INCLUDING REVIEW AND IDENTIFICATION OF CONCERNS FOR THE FOLLOWING AREAS: DRUG REGIMEN, ENVIRONMENTAL SAFETY ISSUES AND FALLS, PRESSURE ULCERS, PAIN, AND DISEASE MANAGEMENT. [code = OCCUPATIONAL THERAPIST TO EVALUATE PATIENT SECONDARY TO FUNCTIONAL DEFICITS/SAFETY CONCERNS IDENTIFIED DURING EVALUATION OCCUPATIONAL THERAPY TO INSTRUCT PATIENT/CAREGIVER ON BED MOBILITY TECHNIQUES TO IMPROVE PATIENT MOBILITY AND POSITIONING TECHNIQUES TO ENHANCE PARTICIPATION IN ADL S AND IMPROVE PATIENT COMFORT AND DECREASE RISK OF SKIN BREAKDOWN. OCCUPATIONAL THERAPY TO INSTRUCT PATIENT/CAREGIVER ON SAFE TRANSFER TECHNIQUES USING PROPER BODY MECHANICS AND EQUIPMENT TO ENHANCE PARTICIPATION IN ADL S. OCCUPATIONAL THERAPY TO ASSESS AND RECOMMEND HOME SAFETY ADAPTATIONS AND EDUCATE PATIENT /CAREGIVER ON FALL PREVENTION STRATEGIES TO ENHANCE PARTICIPATION IN ADL S. OCCUPATIONAL THERAPY TO PROVIDE INSTRUCTION IN SAFE FUNCTIONAL WHEELCHAIR MOBILITY AND/OR PROVIDE RECOMMENDATIONS AND TRAINING FOR PROPER WHEELCHAIR FIT TO ENHANCE PARTICIPATION IN ADL S. OCCUPATIONAL THERAPY TO PROVIDE PATIENT/CAREGIVER WITH INSTRUCTIONS AND RECOMMENDATIONS TO IMPROVE ADL S INCLUDING SPONGE BATHING, SHOWERING, AND LOWER BODY DRESSING WHILE USING APPROPRIATE ADAPTIVE DEVICES RECOMMENDED. OCCUPATIONAL THERAPIST TO ASSESS BEST PRACTICE INTERVENTIONS TO ASSIST PATIENTS TO IMPROVE OR STABILIZE MEDICAL STATUS AND PREVENT RE-HOSPITALIZATION. MEASURES INCLUDING REVIEW AND IDENTIFICATION OF CONCERNS FOR THE FOLLOWING AREAS: DRUG REGIMEN, ENVIRONMENTAL SAFETY ISSUES AND FALLS, PRESSURE ULCERS, PAIN, AND DISEASE MANAGEMENT.] Goal Patient Goal - GETTING STRON FELIX SAFELY Goal Provider Goal - A PLAN OF CARE WILL BE ESTABLISHED THAT MEETS PATIENT'S NURSING HOME NEEDS AND INCLUDES PATIENT GOAL FOR HOME HEALTH. Goal Provider Goal - ADDITIONAL ORDERS WILL BE RECEIVED FROM ALTERNATE PHYSICIAN IN A TIMELY MANNER THROUGHOUT THE CERTIFICATION PERIOD. Goal Provider Goal - SYMPTOMS OF ANXIETY ARE IDENTIFIED AND INTERVENTIONS INITIATED TO ENABLE PATIENT TO UNDERSTAND AND MANAGE FEELINGS THROUGHOUT EPISODE. Goal Provider Goal - OCCUPATIONAL THERAPY EVALUATION TO BE COMPLETED WITH RECOMMENDATIONS AND WRITTEN PLAN OF TREATMENT ESTABLISHED FOR THE PHYSICIAN S SIGNATURE. Goal Provider Goal - PATIENT/CAREGIVER WILL VERBALIZE/DEMONSTRATE UNDERSTANDING OF S/S OF INFECTION AND INFECTION CONTROL MEASURES. SIGNS AND SYMPTOMS OF INFECTION WILL BE IDENTIFIED AND PHYSICIAN NOTIFIED FOR PROMPT INTERVENTION THROUGHOUT THE CERTIFICATION PERIOD. Goal Provider Goal - WOUND CARE WILL BE COMPLETED AND PATIENT WILL HAVE IMPROVED WOUND STATUS EVIDENCED BY NO SIGNS AND SYMPTOMS OF INFECTION, DECREASED WOUND SIZE, AND/OR NO COMPLICATIONS BY THE END OF THE CERTIFICATION PERIOD. Goal Provider Goal - PATIENT/CAREGIVER WILL VERBALIZE/DEMONSTRATE UNDERSTANDING OF SAFE PROVISION OF ADLS BY THE END OF THE CERTIFICATION PERIOD. Goal Provider Goal - A PHYSICAL THERAPY EVALUATION TO BE COMPLETED WITH RECOMMENDATIONS AND/OR WRITTEN PLAN OF TREATMENT ESTABLISHED FOR PHYSICIAN S SIGNATURE. Goal Provider Goal - PATIENT/CAREGIVER WILL VERBALIZE SIGNS AND SYMPTOMS OF PARKINSON'S DISEASE AND DEMONSTRATE METHODS TO MANAGE DISEASE PROCESS BY END OF CERTIFICATION PERIOD. Goal Provider Goal - PATIENT WILL BE FREE FROM INFECTION AND PATIENT/CAREGIVER WILL VERBALIZE UNDERSTANDING OF SIGNS AND SYMPTOMS AND METHODS TO PREVENT SEPSIS BY END OF THE EPISODE. Goal Provider Goal - PATIENT/CAREGIVER WILL VERBALIZE UNDERSTANDING OF MUSCULOSKELETAL DISEASE INCLUDING SIGNS AND SYMPTOMS, MANAGEMENT, AND PRESCRIBED TREATMENT REGIMEN BY END OF EPISODE. Goal Provider Goal - PATIENT/CAREGIVER WILL UTILIZE VIRTUAL VISITS TO ACHIEVE GOALS OUTLINED ON THE PLAN OF CARE. PATIENT WILL HAVE SUPPORT MEASURES ESTABLISHED TO PREVENT HOSPITALIZATION AND PATIENT/CAREGIVER WILL VERBALIZE/DEMONSTRATE METHODS TO REDUCE AVOIDABLE HOSPITALIZATION THROUGHOUT THE CERTIFICATION PERIOD. Goal Provider Goal - PATIENT WILL HAVE SUPPORT MEASURES ESTABLISHED TO PREVENT HOSPITALIZATION AND ED USE AND PATIENT/CAREGIVER WILL VERBALIZE/DEMONSTRATE METHODS TO REDUCE AVOIDABLE HOSPITALIZATION AND ED USE BY END OF EPISODE. Goal Provider Goal - PATIENT/CAREGIVER WILL VERBALIZE UNDERSTANDING OF DISCHARGE PLANNING INSTRUCTIONS BY DATE OF DISCHARGE. Goal Provider Goal - PATIENT/CAREGIVER WILL VERBALIZE/DEMONSTRATE EFFECTIVE ENVIRONMENTAL SAFETY AND FALL PREVENTION STRATEGIES, WILL REMAIN SAFE IN THE COMMUNITY, AND WILL BE FREE OF DANGER TO SELF AND OTHERS THROUGHOUT THE CERTIFICATION PERIOD. Goal Provider Goal - PATIENT/CAREGIVER WILL DEMONSTRATE UNDERSTANDING OF PHARMACOLOGIC AND NONPHARMACOLOGIC PAIN CONTROL MEASURES AND PATIENT WILL HAVE IMPROVEMENT IN PAIN INTERFERING WITH ACTIVITY EVIDENCED BY PAIN AT A LEVEL THAT IS ACCEPTABLE TO THE PATIENT AND PAIN LEVEL WITHIN ESTABLISHED PARAMETERS BY END OF CERTIFICATION PERIOD. Goal Provider Goal - PATIENT/CAREGIVER WILL VERBALIZE UNDERSTANDING OF PRESSURE ULCER PREVENTION BY END OF THE EPISODE. Goal Provider Goal - PATIENT/CAREGIVER WILL VERBALIZE/DEMONSTRATE UNDERSTANDING OF THE MANAGEMENT OF DEPRESSION THROUGHOUT THE CERTIFICATION PERIOD AND SYMPTOMS ARE IDENTIFIED AND MANAGED TO MAINTAIN PATIENT SAFETY IN THE HOME. Goal Provider Goal - PATIENT/CAREGIVER WILL VERBALIZE UNDERSTANDING OF EDUCATION PROVIDED ON MEDICATIONS BY THE END OF THE CERTIFICATION PERIOD. Goal Provider Goal - PHYSICAL THERAPY EVALUATION TO BE COMPLETED WITH RECOMMENDATIONS AND/OR WRITTEN TREATMENT PLAN OF CARE ESTABLISHED FOR THE PHYSICIAN S SIGNATURE PATIENT/CAREGIVER WILL PERFORM THERAPEUTIC EXERCISE/S AND DEMONSTRATE PARTICIPATION IN A HOME PROGRAM. PATIENT/CAREGIVER WILL DEMONSTRATE SAFE TRANSFERS USING APPROPRIATE ASSISTIVE DEVICE, BODY MECHANICS AND EQUIPMENT. PATIENT/CAREGIVER WILL DEMONSTRATE IMPROVED GAIT TECHNIQUES TO MINIMIZE RISK OF INJURY. PATIENT/CAREGIVER WILL DEMONSTRATE IMPROVED BALANCE AND REDUCE THE RISK OF FALLS AND INJURY. PATIENT/CAREGIVER VERBALIZES UNDERSTANDING OF THE INITIAL BEST PRACTICE RECOMMENDATIONS. PHYSICIAN TO BE NOTIFIED APPROPRIATE FOR ANY CHANGES OR COMPLICATIONS THROUGHOUT THE CERTIFICATION PERIOD. Goal Provider Goal - OCCUPATIONAL THERAPIST TO EVALUATE PATIENT SECONDARY TO FUNCTIONAL DEFICITS/SAFETY CONCERNS IDENTIFIED DURING EVALUATION. PATIENT/CAREGIVER WILL DEMONSTRATE IMPROVED BED MOBILITY TECHNIQUES. PATIENT/CAREGIVER WILL DEMONSTRATE SAFE TRANSFERS USING APPROPRIATE ASSISTIVE DEVICE, BODY MECHANICS AND EQUIPMENT. CAREGIVER/PATIENT WILL DEMONSTRATE/VERBALIZE UNDERSTANDING OF RECOMMENDATIONS TO INCREASE SAFETY IN THE HOME AND FALL PREVENTION IN ORDER TO PREVENT INJURY. PATIENT/CAREGIVER WILL DEMONSTRATE IMPROVED WHEELCHAIR MOBILITY AND FITTING. PATIENT/CAREGIVER WILL DEMONSTRATE IMPROVED ABILITY TO PERFORM ACTIVITIES OF DAILY LIVING. PATIENT/CAREGIVER VERBALIZES UNDERSTANDING OF THE INITIAL BEST PRACTICE RECOMMENDATIONS. PHYSICIAN TO BE NOTIFIED APPROPRIATE FOR ANY CHANGES OR COMPLICATIONS THROUGHOUT THE CERTIFICATION PERIOD. Progress Notes Progress Notes <paragraph>[Visit Date: 2024 by MARTELL FRANKLIN RN]:</paragraph><paragraph>ALISA WAS SEEN TODAY FOR ROUTINE VISIT. WHEN NURSE ARRIVED SHE WAS SITTING IN A RECLINER IN HER BEDROOM. IS ATTENTIVE TO HER NEEDS.</paragraph><paragraph></paragraph><paragraph>ALISA IS ALERT AND ORIENTED X4. SHE DENIES ANY PAIN OR TAKING ANY PAIN MEDICATIONS IN OVER 24 HOURS. VITAL SIGNS ASSESSED BLOOD PRESSURE OUT OF NORMAL LIMITS, DUE TO NOTIFIED AND ONSET OF DIZZINESS SINCE 5 A.M. ORTHOSTATIC BLOOD PRESSURES ATTEMPTED BUT UPON STANDING PATIENT WAS TOO DIZZY AND HAD TO SIT BACK DOWN. BLOOD PRESSURE WAS ELEVATED CIVIL PREPAREDNESS TRAINING OFFICER AND MD'S OFFICE WAS NOTIFIED AND AGREED THAT PATIENT SHOULD BE EVALUATED IN THE ER. LUNGS EQUAL BILATERALLY. HEART RATE AND RHYTHM REGULAR. BOWEL SOUNDS AUDIBLE IN ALL 4 QUADRANTS SHE REPORTS REGULAR BOWEL MOVEMENTS. SHE REPORTED INCREASED THIRST THIS MORNING AROUND 5 A.M. AND 9 EPISODES OF URINARY INCONTINENCE IN LARGE AMOUNTS, MD'S OFFICE AWARE. BLOOD GLUCOSE CHECKED AND WITHIN NORMAL RANGE. SKIN ASSESSED NO NEW WOUNDS OR EDEMA BOOT IS IN PLACE ON RIGHT ANKLE ORDERS TO LEAVE BOOT IN PLACE. PUPILS EQUALLY REACTIVE.</paragraph><paragraph></paragraph><paragraph>PATO AND REMINDED THEY CAN CALL [facility] FIRST WITH ANY ISSUES OR CONCERNS. THE REMINDED TO KEEP ALL FOLLOW UP APPOINTMENTS AND TO CONTINUE TAKING MEDICATIONS PRESCRIBED.</paragraph><paragraph></paragraph><paragraph>UPON TALKING TO JOSUE HOGAN, CIVIL PREPAREDNESS TRAINING OFFICER OFFICE EMS WAS CALLED AND PATIENT WAS TAKEN TO [facility]. </paragraph><paragraph>DIMA ARNOLD OFFICE NOTIFIED OF SYMPTOMS,NO NEW ORDERS</paragraph> Encounters Start Date/Time End Date/Time Encounter Type Admission Type Attending [facility] Facility Care Department Encounter ID Discharge Date Discharge Status Discharge Condition Discharge Reason Percent Goals Met 2025-06-15 00:00:00 2025-08-13 00:00:00 Outpatient NEW ADMISSION MARTELL FRANKLIN [facility] [id number] 54.29
--- OUTSIDE RECORDS SUMMARY | 2025-08-12 18:00 | XMS_ITS | Clinical Summary ---
Author Organization Unknown Care Team Providers Care Credit Control Officer Name Role Phone DIMA ARNOLD, DEBBY Unavailable Unavailable NOEMI MCGEE, MARTELL Unavailable Unavailabl e Payers Payer Name Policy Type Policy Number Effective Date Expira tion Date MEDICARE - [place] - [facility] [id number] Problems Condition Name Condition Details Condition Category [...] URINARY (TRACT) INFECTIONS Active 08-04 00:00: 00 LONGTERM (CURRENT) USE OF ASPIRIN Active 08-04 00:00: [...] MAY ACCEPT ORDERS FROM THE FOLLOWING PHYSICIANS: ASSISTANT PROFESSOR OF LIFE SCIENCES/TREATING PROVIDERS [code = HOME HEALTH AGENCY MAY ACCEPT ORDERS FROM THE FOLLOWING PHYSICIANS: ASSISTANT PROFESSOR OF LIFE SCIENCES/TREATING PROVIDERS] Future Scheduled Test SKILLED NU RSE [...] MAINTAIN SITUATIONAL AWARENESS AND WILL NOTIFY CLINICAL GIMP BUTTONHOLE MACHINE OPERATOR AND PHYSICIAN/PROVIDER WITH ANY CHANGE IN CONDITION. [code = SKILLED NURSE TO PERFORM ENVIRONMENTAL SAFETY RISK ASSESSMENT AND FALL RISK ASSESSMENT AND PROVIDE INSTRUCTION TO IMPLEMENT ENVIRONMENTAL SAFETY AND FALL PREVENTION STRATEGIES THROUGHOUT THE CERTIFICATION PERIOD. SKILLED NURSE WILL MAINTAIN SITUATIONAL AWARENESS AND WILL NOTIFY CLINICAL GIMP BUTTONHOLE MACHINE OPERATOR AND PHYSICIAN/PROVIDER WITH ANY CHANGE IN CONDITION.] [...] CARE WILL BE ESTABLISHED THAT MEETS PATIENT'S LONGTERM NEEDS AND INCLUDES PATIENT GOAL FOR HOME [...] SIT BACK DOWN. BLOOD PRESSURE WAS ELEVATED CHANNEL ACCOUNT MANAGER AND MD'S OFFICE WAS NOTIFIED AND AGREED [...] EQUALLY REACTIVE.</paragraph><paragraph></paragraph><paragraph>PATO AND REMINDED THEY CAN CALL [facility] FIRST WITH ANY ISSUES OR CONCERNS. THE REMINDED TO KEEP ALL FOLLOW UP APPOINTMENTS AND TO CONTINUE TAKING MEDICATIONS PRESCRIBED.</paragraph><paragraph></paragraph><paragraph>UPON TALKING TO JOSUE HOGAN, CHANNEL ACCOUNT MANAGER OFFICE EMS WAS CALLED AND PATIENT WAS TAKEN TO [facility]. </paragraph><paragraph>DIMA ARNOLD OFFICE NOTIFIED OF SYMPTOMS,NO NEW ORDERS</paragraph> Encounters Start Date/Time End Date/Time Encounter Type Admission Type Attending [facility] Care Department Encounter ID Discharge Date Discharge Status Discharge Condition Discharge Reason Percent Goals Met 2025-06-15 00:00:00 2025-08-13 00:00:00 Outpatient NEW ADMISSION MARTELL FRANKLIN [facility] [id number] 54.29
--- OUTSIDE RECORDS SUMMARY | 2025-08-12 18:00 | XMS_ITS | Clinical Summary ---
Author Organization Unknown Care Team Providers Care Aircraft Instrument Repairer Name Role Phone DIMA ARNOLD, DEBBY Unavailable Unavailable NOEMI MCGEE, MARTELL Unavailable Unavailabl e Payers Payer Name Policy Type Policy Number Effective Date Expira tion Date MEDICARE - [place] - [facility] [id number] Problems Condition Name Condition Details Condition Category [...] URINARY (TRACT) INFECTIONS Active 08-04 00:00: 00 CUSTODIAL (CURRENT) USE OF ASPIRIN Active 08-04 00:00: [...] MAY ACCEPT ORDERS FROM THE FOLLOWING PHYSICIANS: SOIL SCIENCE TEACHER/TREATING PROVIDERS [code = HOME HEALTH AGENCY MAY ACCEPT ORDERS FROM THE FOLLOWING PHYSICIANS: SOIL SCIENCE TEACHER/TREATING PROVIDERS] Future Scheduled Test SKILLED NU RSE [...] MAINTAIN SITUATIONAL AWARENESS AND WILL NOTIFY CLINICAL CHEST PAIN COORDINATOR AND PHYSICIAN/PROVIDER WITH ANY CHANGE IN CONDITION. [code = SKILLED NURSE TO PERFORM ENVIRONMENTAL SAFETY RISK ASSESSMENT AND FALL RISK ASSESSMENT AND PROVIDE INSTRUCTION TO IMPLEMENT ENVIRONMENTAL SAFETY AND FALL PREVENTION STRATEGIES THROUGHOUT THE CERTIFICATION PERIOD. SKILLED NURSE WILL MAINTAIN SITUATIONAL AWARENESS AND WILL NOTIFY CLINICAL CHEST PAIN COORDINATOR AND PHYSICIAN/PROVIDER WITH ANY CHANGE IN CONDITION.] [...] CARE WILL BE ESTABLISHED THAT MEETS PATIENT'S ALF NEEDS AND INCLUDES PATIENT GOAL FOR HOME [...] SIT BACK DOWN. BLOOD PRESSURE WAS ELEVATED TEMPORARY STAFF ACCOUNTANT AND MD'S OFFICE WAS NOTIFIED AND AGREED [...] EQUALLY REACTIVE.</paragraph><paragraph></paragraph><paragraph>PATO AND REMINDED THEY CAN CALL [facility] FIRST WITH ANY ISSUES OR CONCERNS. THE REMINDED TO KEEP ALL FOLLOW UP APPOINTMENTS AND TO CONTINUE TAKING MEDICATIONS PRESCRIBED.</paragraph><paragraph></paragraph><paragraph>UPON TALKING TO JOSUE HOGAN, TEMPORARY STAFF ACCOUNTANT OFFICE EMS WAS CALLED AND PATIENT WAS TAKEN TO [facility]. </paragraph><paragraph>DIMA ARNOLD OFFICE NOTIFIED OF SYMPTOMS,NO NEW ORDERS</paragraph> Encounters Start Date/Time End Date/Time Encounter Type Admission Type Attending [facility] Care Facility Care Department Encounter ID Discharge Date Discharge Status Discharge Condition Discharge Reason Percent Goals Met 2025-06-15 00:00:00 2025-08-13 00:00:00 Outpatient NEW ADMISSION MARTELL FRANKLIN [facility] [id number] 54.29
--- OUTSIDE RECORDS SUMMARY | 2025-08-12 18:00 | XMS_ITS | Clinical Summary ---
Author Organization Unknown Care Team Providers Care Windows Server Engineer Name Role Phone DIMA ARNOLD, DEBBY Unavailable Unavailable NOEMI MCGEE, MARTELL Unavailable Unavailabl e Payers Payer Name Policy Type Policy Number Effective Date Expira tion Date MEDICARE - [place] - [facility] [id number] Problems Condition Name Condition Details Condition Category [...] URINARY (TRACT) INFECTIONS Active 08-04 00:00: 00 SENIOR CARE (CURRENT) USE OF ASPIRIN Active 08-04 00:00: [...] MAY ACCEPT ORDERS FROM THE FOLLOWING PHYSICIANS: AIR CONDITIONING SUPERVISOR/TREATING PROVIDERS [code = HOME HEALTH AGENCY MAY ACCEPT ORDERS FROM THE FOLLOWING PHYSICIANS: AIR CONDITIONING SUPERVISOR/TREATING PROVIDERS] Future Scheduled Test SKILLED NU RSE [...] MAINTAIN SITUATIONAL AWARENESS AND WILL NOTIFY CLINICAL HOME STEREO EQUIPMENT INSTALLER AND PHYSICIAN/PROVIDER WITH ANY CHANGE IN CONDITION. [code = SKILLED NURSE TO PERFORM ENVIRONMENTAL SAFETY RISK ASSESSMENT AND FALL RISK ASSESSMENT AND PROVIDE INSTRUCTION TO IMPLEMENT ENVIRONMENTAL SAFETY AND FALL PREVENTION STRATEGIES THROUGHOUT THE CERTIFICATION PERIOD. SKILLED NURSE WILL MAINTAIN SITUATIONAL AWARENESS AND WILL NOTIFY CLINICAL HOME STEREO EQUIPMENT INSTALLER AND PHYSICIAN/PROVIDER WITH ANY CHANGE IN CONDITION.] [...] CARE WILL BE ESTABLISHED THAT MEETS PATIENT'S PRISON NEEDS AND INCLUDES PATIENT GOAL FOR HOME [...] SIT BACK DOWN. BLOOD PRESSURE WAS ELEVATED ASP WEB DEVELOPER AND MD'S OFFICE WAS NOTIFIED AND AGREED [...] EQUALLY REACTIVE.</paragraph><paragraph></paragraph><paragraph>PATO AND REMINDED THEY CAN CALL [facility] FIRST WITH ANY ISSUES OR CONCERNS. THE REMINDED TO KEEP ALL FOLLOW UP APPOINTMENTS AND TO CONTINUE TAKING MEDICATIONS PRESCRIBED.</paragraph><paragraph></paragraph><paragraph>UPON TALKING TO JOSUE HOGAN, ASP WEB DEVELOPER OFFICE EMS WAS CALLED AND PATIENT WAS TAKEN TO [facility]. </paragraph><paragraph>DIMA ARNOLD OFFICE NOTIFIED OF SYMPTOMS,NO NEW ORDERS</paragraph> Encounters Start Date/Time End Date/Time Encounter Type Admission Type Attending [facility] Care Facility Care Department Encounter ID Discharge Date Discharge Status Discharge Condition Discharge Reason Percent Goals Met 2025-06-15 00:00:00 2025-08-13 00:00:00 Outpatient NEW ADMISSION MARTELL FRANKLIN [facility] [id number] 54.29
--- OUTSIDE RECORDS SUMMARY | 2025-08-12 18:00 | XMS_ITS | Clinical Summary ---
Author Organization Unknown Care Team Providers Care Needle Molder Name Role Phone DIMA ARNOLD, DEBBY Unavailable Unavailable NOEMI MCGEE, MARTELL Unavailable Unavailabl e Payers Payer Name Policy Type Policy Number Effective Date Expira tion Date MEDICARE - [place] - [facility] [id number] Problems Condition Name Condition Details Condition Category [...] URINARY (TRACT) INFECTIONS Active 08-04 00:00: 00 JAIL (CURRENT) USE OF ASPIRIN Active 08-04 00:00: [...] MAY ACCEPT ORDERS FROM THE FOLLOWING PHYSICIANS: BEAMER HELPER/TREATING PROVIDERS [code = HOME HEALTH AGENCY MAY ACCEPT ORDERS FROM THE FOLLOWING PHYSICIANS: BEAMER HELPER/TREATING PROVIDERS] Future Scheduled Test SKILLED NU RSE [...] MAINTAIN SITUATIONAL AWARENESS AND WILL NOTIFY CLINICAL METER INSTALLER AND REMOVER AND PHYSICIAN/PROVIDER WITH ANY CHANGE IN CONDITION. [code = SKILLED NURSE TO PERFORM ENVIRONMENTAL SAFETY RISK ASSESSMENT AND FALL RISK ASSESSMENT AND PROVIDE INSTRUCTION TO IMPLEMENT ENVIRONMENTAL SAFETY AND FALL PREVENTION STRATEGIES THROUGHOUT THE CERTIFICATION PERIOD. SKILLED NURSE WILL MAINTAIN SITUATIONAL AWARENESS AND WILL NOTIFY CLINICAL METER INSTALLER AND REMOVER AND PHYSICIAN/PROVIDER WITH ANY CHANGE IN CONDITION.] [...] CARE WILL BE ESTABLISHED THAT MEETS PATIENT'S DETENTION NEEDS AND INCLUDES PATIENT GOAL FOR HOME [...] SIT BACK DOWN. BLOOD PRESSURE WAS ELEVATED PRODUCT MANAGER MEDICAL DEVICE AND MD'S OFFICE WAS NOTIFIED AND AGREED [...] EQUALLY REACTIVE.</paragraph><paragraph></paragraph><paragraph>PATO AND REMINDED THEY CAN CALL [facility] FIRST WITH ANY ISSUES OR CONCERNS. THE REMINDED TO KEEP ALL FOLLOW UP APPOINTMENTS AND TO CONTINUE TAKING MEDICATIONS PRESCRIBED.</paragraph><paragraph></paragraph><paragraph>UPON TALKING TO JOSUE HOGAN, PRODUCT MANAGER MEDICAL DEVICE OFFICE EMS WAS CALLED AND PATIENT WAS TAKEN TO [facility]. </paragraph><paragraph>DIMA ARNOLD OFFICE NOTIFIED OF SYMPTOMS,NO NEW ORDERS</paragraph> Encounters Start Date/Time End Date/Time Encounter Type Admission Type Attending [facility] Care Facility Care Department Encounter ID Discharge Date Discharge Status Discharge Condition Discharge Reason Percent Goals Met 2025-06-15 00:00:00 2025-08-13 00:00:00 Outpatient NEW ADMISSION MARTELL FRANKLIN [facility] [id number] 54.29
--- OUTSIDE RECORDS SUMMARY | 2025-08-12 18:00 | XMS_ITS | Clinical Summary ---
Author Organization Unknown Care Team Providers Care Environmental Maintenance Worker Name Role Phone DIMA ARNOLD, DEBBY Unavailable Unavailable NOEMI MCGEE, MARTELL Unavailable Unavailabl e Payers Payer Name Policy Type Policy Number Effective Date Expira tion Date MEDICARE - [place] - [facility] [id number] Problems Condition Name Condition Details Condition Category [...] URINARY (TRACT) INFECTIONS Active 08-04 00:00: 00 GROUP HOME (CURRENT) USE OF ASPIRIN Active 08-04 00:00: [...] MAY ACCEPT ORDERS FROM THE FOLLOWING PHYSICIANS: LITHOGRAPH PRESS OPERATOR TINWARE/TREATING PROVIDERS [code = HOME HEALTH AGENCY MAY ACCEPT ORDERS FROM THE FOLLOWING PHYSICIANS: LITHOGRAPH PRESS OPERATOR TINWARE/TREATING PROVIDERS] Future Scheduled Test SKILLED NU RSE [...] MAINTAIN SITUATIONAL AWARENESS AND WILL NOTIFY CLINICAL REPAIRER HELPER AND PHYSICIAN/PROVIDER WITH ANY CHANGE IN CONDITION. [code = SKILLED NURSE TO PERFORM ENVIRONMENTAL SAFETY RISK ASSESSMENT AND FALL RISK ASSESSMENT AND PROVIDE INSTRUCTION TO IMPLEMENT ENVIRONMENTAL SAFETY AND FALL PREVENTION STRATEGIES THROUGHOUT THE CERTIFICATION PERIOD. SKILLED NURSE WILL MAINTAIN SITUATIONAL AWARENESS AND WILL NOTIFY CLINICAL REPAIRER HELPER AND PHYSICIAN/PROVIDER WITH ANY CHANGE IN CONDITION.] [...] CARE WILL BE ESTABLISHED THAT MEETS PATIENT'S [place]AIL NEEDS AND INCLUDES PATIENT GOAL FOR HOME [...] SIT BACK DOWN. BLOOD PRESSURE WAS ELEVATED ELECTRO MECHANICAL TECHNOLOGIST AND MD'S OFFICE WAS NOTIFIED AND AGREED [...] TAKING MEDICATIONS PRESCRIBED.</paragraph><paragraph></paragraph><paragraph>UPON TALKING TO JOSUE HOGAN, ELECTRO MECHANICAL TECHNOLOGIST OFFICE EMS WAS CALLED AND PATIENT WAS TAKEN TO [facility]. </paragraph><paragraph>DIMA ARNOLD OFFICE NOTIFIED OF SYMPTOMS,NO NEW ORDERS</paragraph> Encounters Start Date/Time End Date/Time Encounter Type Admission Type Attending [facility] Care Facility Care Department Encounter ID Discharge Date Discharge Status Discharge Condition Discharge Reason Percent Goals Met 2025-06-15 00:00:00 2025-08-13 00:00:00 Outpatient NEW ADMISSION MARTELL FRANKLIN [facility] [id number] 54.29
--- OUTSIDE RECORDS SUMMARY | 2025-08-12 18:00 | XMS_ITS | Clinical Summary ---
Author Organization Unknown Care Team Providers Care Blasting Gang Miner Name Role Phone DIMA ARNOLD, DEBBY Unavailable Unavailable NOEMI MCGEE, MARTELL Unavailable Unavailabl e Payers Payer Name Policy Type Policy Number Effective Date Expira tion Date MEDICARE - [place] - [facility] [id number] Problems Condition Name Condition Details Condition Category [...] URINARY (TRACT) INFECTIONS Active 08-04 00:00: 00 MCC (CURRENT) USE OF ASPIRIN Active 08-04 00:00: [...] MAY ACCEPT ORDERS FROM THE FOLLOWING PHYSICIANS: LEAN MANUFACTURING ENGINEER/TREATING PROVIDERS [code = HOME HEALTH AGENCY MAY ACCEPT ORDERS FROM THE FOLLOWING PHYSICIANS: LEAN MANUFACTURING ENGINEER/TREATING PROVIDERS] Future Scheduled Test SKILLED NU RSE [...] MAINTAIN SITUATIONAL AWARENESS AND WILL NOTIFY CLINICAL MERCURY WASHER AND PHYSICIAN/PROVIDER WITH ANY CHANGE IN CONDITION. [code = SKILLED NURSE TO PERFORM ENVIRONMENTAL SAFETY RISK ASSESSMENT AND FALL RISK ASSESSMENT AND PROVIDE INSTRUCTION TO IMPLEMENT ENVIRONMENTAL SAFETY AND FALL PREVENTION STRATEGIES THROUGHOUT THE CERTIFICATION PERIOD. SKILLED NURSE WILL MAINTAIN SITUATIONAL AWARENESS AND WILL NOTIFY CLINICAL MERCURY WASHER AND PHYSICIAN/PROVIDER WITH ANY CHANGE IN CONDITION.] [...] CARE WILL BE ESTABLISHED THAT MEETS PATIENT'S [facility] NEEDS AND INCLUDES PATIENT GOAL FOR HOME [...] SIT BACK DOWN. BLOOD PRESSURE WAS ELEVATED DIETARY WORKER AND MD'S OFFICE WAS NOTIFIED AND AGREED [...] EQUALLY REACTIVE.</paragraph><paragraph></paragraph><paragraph>PATO AND REMINDED THEY CAN CALL [facility] FIRST WITH ANY ISSUES OR CONCERNS. THE REMINDED TO KEEP ALL FOLLOW UP APPOINTMENTS AND TO CONTINUE TAKING MEDICATIONS PRESCRIBED.</paragraph><paragraph></paragraph><paragraph>UPON TALKING TO JOSUE HOGAN, DIETARY WORKER OFFICE EMS WAS CALLED AND PATIENT WAS TAKEN TO [facility]. </paragraph><paragraph>DIMA ARNOLD OFFICE NOTIFIED OF SYMPTOMS,NO NEW ORDERS</paragraph> Encounters Start Date/Time End Date/Time Encounter Type Admission Type Attending [facility] Care Facility Care Department Encounter ID Discharge Date Discharge Status Discharge Condition Discharge Reason Percent Goals Met 2025-06-15 00:00:00 2025-08-13 00:00:00 Outpatient NEW ADMISSION MARTELL FRANKLIN [facility] [id number] 54.29
--- OUTSIDE RECORDS SUMMARY | 2025-08-12 18:00 | XMS_ITS | Clinical Summary ---
Author Organization Unknown Care Team Providers Care Extension Specialist Name Role Phone DIMA ARNOLD, DEBBY Unavailable Unavailable NOEMI MCGEE, MARTELL Unavailable Unavailabl e Payers Payer Name Policy Type Policy Number Effective Date Expira tion Date MEDICARE - [place] - [facility] [id number] Problems Condition Name Condition Details Condition Category [...] URINARY (TRACT) INFECTIONS Active 08-04 00:00: 00 RESIDENTIAL (CURRENT) USE OF ASPIRIN Active 08-04 00:00: [...] MAY ACCEPT ORDERS FROM THE FOLLOWING PHYSICIANS: IMPORT EXPORT CLERK/TREATING PROVIDERS [code = HOME HEALTH AGENCY MAY ACCEPT ORDERS FROM THE FOLLOWING PHYSICIANS: IMPORT EXPORT CLERK/TREATING PROVIDERS] Future Scheduled Test SKILLED NU RSE [...] MAINTAIN SITUATIONAL AWARENESS AND WILL NOTIFY CLINICAL GRADUATE RESEARCH ASSISTANT AND PHYSICIAN/PROVIDER WITH ANY CHANGE IN CONDITION. [code = SKILLED NURSE TO PERFORM ENVIRONMENTAL SAFETY RISK ASSESSMENT AND FALL RISK ASSESSMENT AND PROVIDE INSTRUCTION TO IMPLEMENT ENVIRONMENTAL SAFETY AND FALL PREVENTION STRATEGIES THROUGHOUT THE CERTIFICATION PERIOD. SKILLED NURSE WILL MAINTAIN SITUATIONAL AWARENESS AND WILL NOTIFY CLINICAL GRADUATE RESEARCH ASSISTANT AND PHYSICIAN/PROVIDER WITH ANY CHANGE IN CONDITION.] [...] CARE WILL BE ESTABLISHED THAT MEETS PATIENT'S LONG-TERM NEEDS AND INCLUDES PATIENT GOAL FOR HOME [...] SIT BACK DOWN. BLOOD PRESSURE WAS ELEVATED CONTACT LENS INSPECTOR AND MD'S OFFICE WAS NOTIFIED AND AGREED [...] EQUALLY REACTIVE.</paragraph><paragraph></paragraph><paragraph>PATO AND REMINDED THEY CAN CALL [facility] FIRST WITH ANY ISSUES OR CONCERNS. THE REMINDED TO KEEP ALL FOLLOW UP APPOINTMENTS AND TO CONTINUE TAKING MEDICATIONS PRESCRIBED.</paragraph><paragraph></paragraph><paragraph>UPON TALKING TO JOSUE HOGAN, CONTACT LENS INSPECTOR OFFICE EMS WAS CALLED AND PATIENT WAS TAKEN TO [facility]. </paragraph><paragraph>DIMA ARNOLD OFFICE NOTIFIED OF SYMPTOMS,NO NEW ORDERS</paragraph> Encounters Start Date/Time End Date/Time Encounter Type Admission Type Attending [facility] Care Facility Care Department Encounter ID Discharge Date Discharge Status Discharge Condition Discharge Reason Percent Goals Met 2025-06-15 00:00:00 2025-08-13 00:00:00 Outpatient NEW ADMISSION MARTELL FRANKLIN [facility] [id number] 54.29
--- OUTSIDE RECORDS SUMMARY | 2025-08-12 18:00 | XMS_ITS | Clinical Summary ---
Author Organization Unknown Care Team Providers Care Telegraphic Typewriter Mechanic Name Role Phone DIMA ARNOLD, DEBBY Unavailable Unavailable NOEMI MCGEE, MARTELL Unavailable Unavailabl e Payers Payer Name Policy Type Policy Number Effective Date Expira tion Date MEDICARE - [place] - [facility] [id number] Problems Condition Name Condition Details Condition Category [...] MAY ACCEPT ORDERS FROM THE FOLLOWING PHYSICIANS: DRILLING PLANT OPERATOR/TREATING PROVIDERS [code = HOME HEALTH AGENCY MAY ACCEPT ORDERS FROM THE FOLLOWING PHYSICIANS: DRILLING PLANT OPERATOR/TREATING PROVIDERS] Future Scheduled Test SKILLED NU RSE [...] MAINTAIN SITUATIONAL AWARENESS AND WILL NOTIFY CLINICAL ETL CONSULTANT AND PHYSICIAN/PROVIDER WITH ANY CHANGE IN CONDITION. [code = SKILLED NURSE TO PERFORM ENVIRONMENTAL SAFETY RISK ASSESSMENT AND FALL RISK ASSESSMENT AND PROVIDE INSTRUCTION TO IMPLEMENT ENVIRONMENTAL SAFETY AND FALL PREVENTION STRATEGIES THROUGHOUT THE CERTIFICATION PERIOD. SKILLED NURSE WILL MAINTAIN SITUATIONAL AWARENESS AND WILL NOTIFY CLINICAL ETL CONSULTANT AND PHYSICIAN/PROVIDER WITH ANY CHANGE IN CONDITION.] [...] CARE WILL BE ESTABLISHED THAT MEETS PATIENT'S SENIOR CARE NEEDS AND INCLUDES PATIENT GOAL FOR HOME [...] SIT BACK DOWN. BLOOD PRESSURE WAS ELEVATED ASSESSMENT ANALYST AND MD'S OFFICE WAS NOTIFIED AND AGREED [...] EQUALLY REACTIVE.</paragraph><paragraph></paragraph><paragraph>PATO AND REMINDED THEY CAN CALL [facility] FIRST WITH ANY ISSUES OR CONCERNS. THE REMINDED TO KEEP ALL FOLLOW UP APPOINTMENTS AND TO CONTINUE TAKING MEDICATIONS PRESCRIBED.</paragraph><paragraph></paragraph><paragraph>UPON TALKING TO JOSUE HOGAN, ASSESSMENT ANALYST OFFICE EMS WAS CALLED AND PATIENT WAS TAKEN TO [facility]. </paragraph><paragraph>DIMA ARNOLD OFFICE NOTIFIED OF SYMPTOMS,NO NEW ORDERS</paragraph> Encounters Start Date/Time End Date/Time Encounter Type Admission Type Attending [facility] Care Facility Care Department Encounter ID Discharge Date Discharge Status Discharge Condition Discharge Reason Percent Goals Met 2025-06-15 00:00:00 2025-08-13 00:00:00 Outpatient NEW ADMISSION MARTELL FRANKLIN [facility] [id number] 54.29
--- OUTSIDE RECORDS SUMMARY | 2025-08-12 18:00 | XMS_ITS | Clinical Summary ---
Author Organization Unknown Care Team Providers Care Hris Developer Name Role Phone DIMA ARNOLD, DEBBY Unavailable Unavailable NOEMI MCGEE, MARTELL Unavailable Unavailabl e Payers Payer Name Policy Type Policy Number Effective Date Expira tion Date MEDICARE - [place] - [facility] [id number] Problems Condition Name Condition Details Condition Category [...] URINARY (TRACT) INFECTIONS Active 08-04 00:00: 00 INTERMEDIATE (CURRENT) USE OF ASPIRIN Active 08-04 00:00: [...] MAY ACCEPT ORDERS FROM THE FOLLOWING PHYSICIANS: DIGITAL MARKETING COORDINATOR/TREATING PROVIDERS [code = HOME HEALTH AGENCY MAY ACCEPT ORDERS FROM THE FOLLOWING PHYSICIANS: DIGITAL MARKETING COORDINATOR/TREATING PROVIDERS] Future Scheduled Test SKILLED NU RSE [...] MAINTAIN SITUATIONAL AWARENESS AND WILL NOTIFY CLINICAL CHAIRMAN EMERITUS AND PHYSICIAN/PROVIDER WITH ANY CHANGE IN CONDITION. [code = SKILLED NURSE TO PERFORM ENVIRONMENTAL SAFETY RISK ASSESSMENT AND FALL RISK ASSESSMENT AND PROVIDE INSTRUCTION TO IMPLEMENT ENVIRONMENTAL SAFETY AND FALL PREVENTION STRATEGIES THROUGHOUT THE CERTIFICATION PERIOD. SKILLED NURSE WILL MAINTAIN SITUATIONAL AWARENESS AND WILL NOTIFY CLINICAL CHAIRMAN EMERITUS AND PHYSICIAN/PROVIDER WITH ANY CHANGE IN CONDITION.] [...] SIT BACK DOWN. BLOOD PRESSURE WAS ELEVATED CUSTOMER RETENTION REPRESENTATIVE AND MD'S OFFICE WAS NOTIFIED AND AGREED [...] EQUALLY REACTIVE.</paragraph><paragraph></paragraph><paragraph>PATO AND REMINDED THEY CAN CALL [facility] FIRST WITH ANY ISSUES OR CONCERNS. THE REMINDED TO KEEP ALL FOLLOW UP APPOINTMENTS AND TO CONTINUE TAKING MEDICATIONS PRESCRIBED.</paragraph><paragraph></paragraph><paragraph>UPON TALKING TO JOSUE HOGAN, CUSTOMER RETENTION REPRESENTATIVE OFFICE EMS WAS CALLED AND PATIENT WAS TAKEN TO [facility]. </paragraph><paragraph>DIMA ARNOLD OFFICE NOTIFIED OF SYMPTOMS,NO NEW ORDERS</paragraph> Encounters Start Date/Time End Date/Time Encounter Type Admission Type Attending [facility] Care Facility Care Department Encounter ID Discharge Date Discharge Status Discharge Condition Discharge Reason Percent Goals Met 2025-06-15 00:00:00 2025-08-13 00:00:00 Outpatient NEW ADMISSION MARTELL FRANKLIN [facility] [id number] 54.29
--- OUTSIDE RECORDS SUMMARY | 2025-08-12 18:00 | XMS_ITS | Clinical Summary ---
Author Organization Unknown Care Team Providers Care Sugar Mixer Name Role Phone DIMA ARNOLD, DEBBY Unavailable Unavailable NOEMI MCGEE, MARTELL Unavailable Unavailabl e Payers Payer Name Policy Type Policy Number Effective Date Expira tion Date MEDICARE - [place] - [facility] [id number] Problems Condition Name Condition Details Condition Category [...] URINARY (TRACT) INFECTIONS Active 08-04 00:00: 00 RETIREMENT (CURRENT) USE OF ASPIRIN Active 08-04 00:00: [...] MAY ACCEPT ORDERS FROM THE FOLLOWING PHYSICIANS: AUTOMATION APPLICATION ENGINEER/TREATING PROVIDERS [code = HOME HEALTH AGENCY MAY ACCEPT ORDERS FROM THE FOLLOWING PHYSICIANS: AUTOMATION APPLICATION ENGINEER/TREATING PROVIDERS] Future Scheduled Test SKILLED NU [...] MAINTAIN SITUATIONAL AWARENESS AND WILL NOTIFY CLINICAL FLAT LOCK MACHINE OPERATOR AND PHYSICIAN/PROVIDER WITH ANY CHANGE IN CONDITION. [code = SKILLED NURSE TO PERFORM ENVIRONMENTAL SAFETY RISK ASSESSMENT AND FALL RISK ASSESSMENT AND PROVIDE INSTRUCTION TO IMPLEMENT ENVIRONMENTAL SAFETY AND FALL PREVENTION STRATEGIES THROUGHOUT THE CERTIFICATION PERIOD. SKILLED NURSE WILL MAINTAIN SITUATIONAL AWARENESS AND WILL NOTIFY CLINICAL FLAT LOCK MACHINE OPERATOR AND PHYSICIAN/PROVIDER WITH ANY CHANGE [...] SIT BACK DOWN. BLOOD PRESSURE WAS ELEVATED RESERVOIR ENGINEERING ADVISOR AND MD'S OFFICE WAS NOTIFIED AND AGREED [...] EQUALLY REACTIVE.</paragraph><paragraph></paragraph><paragraph>PATO AND REMINDED THEY CAN CALL [facility] FIRST WITH ANY ISSUES OR CONCERNS. THE REMINDED TO KEEP ALL FOLLOW UP APPOINTMENTS AND TO CONTINUE TAKING MEDICATIONS PRESCRIBED.</paragraph><paragraph></paragraph><paragraph>UPON TALKING TO JOSUE HOGAN, RESERVOIR ENGINEERING ADVISOR OFFICE EMS WAS CALLED AND PATIENT WAS TAKEN TO [facility]. </paragraph><paragraph>DIMA ARNOLD OFFICE NOTIFIED OF SYMPTOMS,NO NEW ORDERS</paragraph> Encounters Start Date/Time End Date/Time Encounter Type Admission Type Attending [facility] Care Facility Care Department Encounter ID Discharge Date Discharge Status Discharge Condition Discharge Reason Percent Goals Met 2025-06-15 00:00:00 2025-08-13 00:00:00 Outpatient NEW ADMISSION MARTELL FRANKLIN [facility] ED [id number] 54.29
--- OUTSIDE RECORDS SUMMARY | 2025-08-12 18:00 | XMS_ITS | Clinical Summary ---
Author Organization Unknown Care Team Providers Care Underwriting Analyst Name Role Phone DIMA ARNOLD, DEBBY Unavailable Unavailable NOEMI MCGEE, MARTELL Unavailable Unavailabl e Payers Payer Name Policy Type Policy Number Effective Date Expira tion Date MEDICARE - [place] [facility] [id number] Problems Condition Name Condition Details Condition Category [...] URINARY (TRACT) INFECTIONS Active 08-04 00:00: 00 ALF (CURRENT) USE OF ASPIRIN Active 08-04 00:00: [...] MAY ACCEPT ORDERS FROM THE FOLLOWING PHYSICIANS: CALENDER SUPERVISOR/TREATING PROVIDERS [code = HOME HEALTH AGENCY MAY ACCEPT ORDERS FROM THE FOLLOWING PHYSICIANS: CALENDER SUPERVISOR/TREATING PROVIDERS] Future Scheduled Test SKILLED NU [...] MAINTAIN SITUATIONAL AWARENESS AND WILL NOTIFY CLINICAL FURNACE KEEPER AND PHYSICIAN/PROVIDER WITH ANY CHANGE IN CONDITION. [code = SKILLED NURSE TO PERFORM ENVIRONMENTAL SAFETY RISK ASSESSMENT AND FALL RISK ASSESSMENT AND PROVIDE INSTRUCTION TO IMPLEMENT ENVIRONMENTAL SAFETY AND FALL PREVENTION STRATEGIES THROUGHOUT THE CERTIFICATION PERIOD. SKILLED NURSE WILL MAINTAIN SITUATIONAL AWARENESS AND WILL NOTIFY CLINICAL FURNACE KEEPER AND PHYSICIAN/PROVIDER WITH ANY CHANGE IN CONDITION.] [...] CARE WILL BE ESTABLISHED THAT MEETS PATIENT'S CUSTODIAL NEEDS AND INCLUDES PATIENT GOAL FOR HOME [...] SIT BACK DOWN. BLOOD PRESSURE WAS ELEVATED TIE LOADER AND MD'S OFFICE WAS NOTIFIED AND AGREED [...] EQUALLY REACTIVE.</paragraph><paragraph></paragraph><paragraph>PATO AND REMINDED THEY CAN CALL [facility] FIRST WITH ANY ISSUES OR CONCERNS. THE REMINDED TO KEEP ALL FOLLOW UP APPOINTMENTS AND TO CONTINUE TAKING MEDICATIONS PRESCRIBED.</paragraph><paragraph></paragraph><paragraph>UPON TALKING TO JOSUE HOGAN, TIE LOADER OFFICE EMS WAS CALLED AND PATIENT WAS TAKEN TO [facility]. </paragraph><paragraph>DIMA ARNOLD OFFICE NOTIFIED OF SYMPTOMS,NO NEW ORDERS</paragraph> Encounters Start Date/Time End Date/Time Encounter Type Admission Type Attending [facility] Care Facility Care Department Encounter ID Discharge Date Discharge Status Discharge Condition Discharge Reason Percent Goals Met 2025-06-15 00:00:00 2025-08-13 00:00:00 Outpatient NEW ADMISSION MARTELL FRANKLIN [facility] [id number] 54.29
--- OUTSIDE RECORDS SUMMARY | 2025-08-12 18:00 | XMS_ITS | Clinical Summary ---
Author Organization Unknown Care Team Providers Care Community Outreach Coordinator Name Role Phone DIMA ARNOLD, DEBBY Unavailable Unavailable NOEMI MCGEE, MARTELL Unavailable Unavailabl e Payers Payer Name Policy Type Policy Number Effective Date Expira tion Date MEDICARE - [place] - [facility] [id number] Problems Condition Name Condition Details Condition Category [...] MAY ACCEPT ORDERS FROM THE FOLLOWING PHYSICIANS: SHELLFISH SHUCKER/TREATING PROVIDERS [code = HOME HEALTH AGENCY MAY ACCEPT ORDERS FROM THE FOLLOWING PHYSICIANS: SHELLFISH SHUCKER/TREATING PROVIDERS] Future Scheduled Test SKILLED NU RSE [...] MAINTAIN SITUATIONAL AWARENESS AND WILL NOTIFY CLINICAL ACID SPLICER AND PHYSICIAN/PROVIDER WITH ANY CHANGE IN CONDITION. [code = SKILLED NURSE TO PERFORM ENVIRONMENTAL SAFETY RISK ASSESSMENT AND FALL RISK ASSESSMENT AND PROVIDE INSTRUCTION TO IMPLEMENT ENVIRONMENTAL SAFETY AND FALL PREVENTION STRATEGIES THROUGHOUT THE CERTIFICATION PERIOD. SKILLED NURSE WILL MAINTAIN SITUATIONAL AWARENESS AND WILL NOTIFY CLINICAL ACID SPLICER AND PHYSICIAN/PROVIDER WITH ANY CHANGE IN CONDITION.] [...] CARE WILL BE ESTABLISHED THAT MEETS PATIENT'S CORRECTION NEEDS AND INCLUDES PATIENT GOAL FOR HOME [...] SIT BACK DOWN. BLOOD PRESSURE WAS ELEVATED NON LICENSED NUCLEAR PLANT OPERATOR AND MD'S OFFICE WAS NOTIFIED AND AGREED [...] REACTIVE.</paragraph><paragraph></paragraph><paragraph>PATO AND REMINDED THEY CAN CALL [facility] FIRST WITH ANY ISSUES OR CONCERNS. THE REMINDED TO KEEP ALL FOLLOW UP APPOINTMENTS AND TO CONTINUE TAKING MEDICATIONS PRESCRIBED.</paragraph><paragraph></paragraph><paragraph>UPON TALKING TO JSOUE HOGAN, NON LICENSED NUCLEAR PLANT OPERATOR OFFICE EMS WAS CALLED AND PATIENT WAS TAKEN TO [facility]. </paragraph><paragraph>DIMA ARNOLD OFFICE NOTIFIED OF SYMPTOMS,NO NEW ORDERS</paragraph> Encounters Start Date/Time End Date/Time Encounter Type Admission Type Attending [facility] Care Facility Care Department Encounter ID Discharge Date Discharge Status Discharge Condition Discharge Reason Percent Goals Met 2025-06-15 00:00:00 2025-08-13 00:00:00 Outpatient NEW ADMISSION MARTELL [facility] [id number] 54.29
--- OUTSIDE RECORDS SUMMARY | 2025-08-12 18:00 | XMS_ITS | Clinical Summary ---
Author Organization Unknown Care Team Providers Care Cylinder Press Operator Apprentice Name Role Phone DIMA ARNOLD, DEBBY Unavailable Unavailable NOEMI MCGEE, MARTELL Unavailable Unavailabl e Payers Payer Name Policy Type Policy Number Effective Date Expira tion Date MEDICARE - [place] [facility] [id number] Problems Condition Name Condition Details Condition Category [...] URINARY (TRACT) INFECTIONS Active 08-04 00:00: 00 ASSISTED (CURRENT) USE OF ASPIRIN Active 08-04 00:00: [...] MAY ACCEPT ORDERS FROM THE FOLLOWING PHYSICIANS: MEDICAID COLLECTION SPECIALIST/TREATING PROVIDERS [code = HOME HEALTH AGENCY MAY ACCEPT ORDERS FROM THE FOLLOWING PHYSICIANS: MEDICAID COLLECTION SPECIALIST/TREATING PROVIDERS] Future Scheduled Test SKILLED NU RSE [...] MAINTAIN SITUATIONAL AWARENESS AND WILL NOTIFY CLINICAL WAREHOUSE SUPERVISOR AND PHYSICIAN/PROVIDER WITH ANY CHANGE IN CONDITION. [code = SKILLED NURSE TO PERFORM ENVIRONMENTAL SAFETY RISK ASSESSMENT AND FALL RISK ASSESSMENT AND PROVIDE INSTRUCTION TO IMPLEMENT ENVIRONMENTAL SAFETY AND FALL PREVENTION STRATEGIES THROUGHOUT THE CERTIFICATION PERIOD. SKILLED NURSE WILL MAINTAIN SITUATIONAL AWARENESS AND WILL NOTIFY CLINICAL WAREHOUSE SUPERVISOR AND PHYSICIAN/PROVIDER WITH ANY CHANGE IN CONDITION.] [...] CARE WILL BE ESTABLISHED THAT MEETS PATIENT'S ASSISTED NEEDS AND INCLUDES PATIENT GOAL FOR HOME [...] SIT BACK DOWN. BLOOD PRESSURE WAS ELEVATED UTILIZATION REVIEW NURSE AND MD'S OFFICE WAS NOTIFIED AND AGREED [...] EQUALLY REACTIVE.</paragraph><paragraph></paragraph><paragraph>PATO AND REMINDED THEY CAN CALL [facility] FIRST WITH ANY ISSUES OR CONCERNS. THE REMINDED TO KEEP ALL FOLLOW UP APPOINTMENTS AND TO CONTINUE TAKING MEDICATIONS PRESCRIBED.</paragraph><paragraph></paragraph><paragraph>UPON TALKING TO JOSUE HOGAN, UTILIZATION REVIEW NURSE OFFICE EMS WAS CALLED AND PATIENT WAS TAKEN TO [facility]. </paragraph><paragraph>DIMA ARNOLD OFFICE NOTIFIED OF SYMPTOMS,NO NEW ORDERS</paragraph> Encounters Start Date/Time End Date/Time Encounter Type Admission Type Attending [facility] Care Facility Care Department Encounter ID Discharge Date Discharge Status Discharge Condition Discharge Reason Percent Goals Met 2025-06-15 00:00:00 2025-08-13 00:00:00 Outpatient NEW ADMISSION MARTELL FRANKLIN [facility] [id number] 54.29
--- OUTSIDE RECORDS SUMMARY | 2025-08-12 18:00 | XMS_ITS | Clinical Summary ---
Author Organization Unknown Care Team Providers Care Progressive Care Nurse Name Role Phone DIMA ARNOLD, DEBBY Unavailable Unavailable NOEMI MCGEE, MARTELL Unavailable Unavailabl e Payers Payer Name Policy Type Policy Number Effective Date Expira tion Date MEDICARE - [place] - [facility] [id number] Problems Condition Name Condition Details Condition Category [...] URINARY (TRACT) INFECTIONS Active 08-04 00:00: 00 SNF (CURRENT) USE OF ASPIRIN Active 08-04 00:00: [...] MAY ACCEPT ORDERS FROM THE FOLLOWING PHYSICIANS: WELL REACTIVATOR OPERATOR/TREATING PROVIDERS [code = HOME HEALTH AGENCY MAY ACCEPT ORDERS FROM THE FOLLOWING PHYSICIANS: WELL REACTIVATOR OPERATOR/TREATING PROVIDERS] Future Scheduled Test SKILLED NU [...] MAINTAIN SITUATIONAL AWARENESS AND WILL NOTIFY CLINICAL JAVA WEB APPLICATION DEVELOPER AND PHYSICIAN/PROVIDER WITH ANY CHANGE IN CONDITION. [code = SKILLED NURSE TO PERFORM ENVIRONMENTAL SAFETY RISK ASSESSMENT AND FALL RISK ASSESSMENT AND PROVIDE INSTRUCTION TO IMPLEMENT ENVIRONMENTAL SAFETY AND FALL PREVENTION STRATEGIES THROUGHOUT THE CERTIFICATION PERIOD. SKILLED NURSE WILL MAINTAIN SITUATIONAL AWARENESS AND WILL NOTIFY CLINICAL JAVA WEB APPLICATION DEVELOPER AND PHYSICIAN/PROVIDER WITH ANY CHANGE IN CONDITION.] [...] CARE WILL BE ESTABLISHED THAT MEETS PATIENT'S USP NEEDS AND INCLUDES PATIENT GOAL FOR HOME [...] SIT BACK DOWN. BLOOD PRESSURE WAS ELEVATED SENIOR NET DEVELOPER AND MD'S OFFICE WAS NOTIFIED AND [...] EQUALLY REACTIVE.</paragraph><paragraph></paragraph><paragraph>PATO AND REMINDED THEY CAN CALL [facility] FIRST WITH ANY ISSUES OR CONCERNS. THE REMINDED TO KEEP ALL FOLLOW UP APPOINTMENTS AND TO CONTINUE TAKING MEDICATIONS PRESCRIBED.</paragraph><paragraph></paragraph><paragraph>UPON TALKING TO JOSUE HOGAN, SENIOR NET DEVELOPER OFFICE EMS WAS CALLED AND PATIENT WAS TAKEN TO [facility]. </paragraph><paragraph>DIMA ARNOLD OFFICE NOTIFIED OF SYMPTOMS,NO NEW ORDERS</paragraph> Encounters Start Date/Time End Date/Time Encounter Type Admission Type Attending [facility] Care Facility Care Department Encounter ID Discharge Date Discharge Status Discharge Condition Discharge Reason Percent Goals Met 2025-06-15 00:00:00 2025-08-13 00:00:00 Outpatient NEW ADMISSION MARTELL FRANKLIN [facility] [id number] 54.29
--- OUTSIDE RECORDS SUMMARY | 2025-08-12 18:00 | XMS_ITS | Clinical Summary ---
Author Organization Unknown Care Team Providers Care Quality Assurance Lead Name Role Phone DIMA ARNOLD, DEBBY Unavailable Unavailable NOEMI MCGEE, MARTELL Unavailable Unavailabl e Payers Payer Name Policy Type Policy Number Effective Date Expira tion Date MEDICARE - [place] - [facility] [id number] Problems Condition Name Condition Details Condition Category [...] MAY ACCEPT ORDERS FROM THE FOLLOWING PHYSICIANS: COMMERCIAL ROOFING ESTIMATOR/TREATING PROVIDERS [code = HOME HEALTH AGENCY MAY ACCEPT ORDERS FROM THE FOLLOWING PHYSICIANS: COMMERCIAL ROOFING ESTIMATOR/TREATING PROVIDERS] Future Scheduled Test SKILLED NU RSE [...] MAINTAIN SITUATIONAL AWARENESS AND WILL NOTIFY CLINICAL STORE GROUP MANAGER AND PHYSICIAN/PROVIDER WITH ANY CHANGE IN CONDITION. [code = SKILLED NURSE TO PERFORM ENVIRONMENTAL SAFETY RISK ASSESSMENT AND FALL RISK ASSESSMENT AND PROVIDE INSTRUCTION TO IMPLEMENT ENVIRONMENTAL SAFETY AND FALL PREVENTION STRATEGIES THROUGHOUT THE CERTIFICATION PERIOD. SKILLED NURSE WILL MAINTAIN SITUATIONAL AWARENESS AND WILL NOTIFY CLINICAL STORE GROUP MANAGER AND PHYSICIAN/PROVIDER WITH ANY CHANGE IN CONDITION.] [...] SIT BACK DOWN. BLOOD PRESSURE WAS ELEVATED CAR PARK ATTENDANT AND MD'S OFFICE WAS NOTIFIED AND AGREED [...] EQUALLY REACTIVE.</paragraph><paragraph></paragraph><paragraph>PATO AND REMINDED THEY CAN CALL [facility] FIRST WITH ANY ISSUES OR CONCERNS. THE REMINDED TO KEEP ALL FOLLOW UP APPOINTMENTS AND TO CONTINUE TAKING MEDICATIONS PRESCRIBED.</paragraph><paragraph></paragraph><paragraph>UPON TALKING TO JOSUE HOGAN, CAR PARK ATTENDANT OFFICE EMS WAS CALLED AND PATIENT WAS TAKEN TO [facility]. </paragraph><paragraph>DIMA ARNOLD OFFICE NOTIFIED OF SYMPTOMS,NO NEW ORDERS</paragraph> Encounters Start Date/Time End Date/Time Encounter Type Admission Type Attending [facility] Care Facility Care Department Encounter ID Discharge Date Discharge Status Discharge Condition Discharge Reason Percent Goals Met 2025-06-15 00:00:00 2025-08-13 00:00:00 Outpatient NEW ADMISSION MARTELL FRANKLIN [facility] [id number] 54.29
--- OUTSIDE RECORDS SUMMARY | 2025-08-12 18:00 | XMS_ITS | Clinical Summary ---
Author Organization Unknown Care Team Providers Care Company Secretary Name Role Phone DIMA ARNOLD, DEBBY Unavailable Unavailable NOEMI MCGEE, MARTELL Unavailable Unavailabl e Payers Payer Name Policy Type Policy Number Effective Date Expira tion Date [place]IC[place] - [place] [facility] [id number] Problems Condition Name Condition Details Condition Category [...] (TRACT) INFECTIONS Active 08-04 00:00: 00 SENIOR LIVING (CURRENT) USE OF ASPIRIN Active 08-04 00:00: [...] MAY ACCEPT ORDERS FROM THE FOLLOWING PHYSICIANS: BOOK SALESMAN/TREATING PROVIDERS [code = HOME HEALTH AGENCY MAY ACCEPT ORDERS FROM THE FOLLOWING PHYSICIANS: BOOK SALESMAN/TREATING PROVIDERS] Future Scheduled Test SKILLED NU RSE [...] MAINTAIN SITUATIONAL AWARENESS AND WILL NOTIFY CLINICAL BRIM BLOCKER AND PHYSICIAN/PROVIDER WITH ANY CHANGE IN CONDITION. [code = SKILLED NURSE TO PERFORM ENVIRONMENTAL SAFETY RISK ASSESSMENT AND FALL RISK ASSESSMENT AND PROVIDE INSTRUCTION TO IMPLEMENT ENVIRONMENTAL SAFETY AND FALL PREVENTION STRATEGIES THROUGHOUT THE CERTIFICATION PERIOD. SKILLED NURSE WILL MAINTAIN SITUATIONAL AWARENESS AND WILL NOTIFY CLINICAL BRIM BLOCKER AND PHYSICIAN/PROVIDER WITH ANY CHANGE IN CONDITION.] [...] SIT BACK DOWN. BLOOD PRESSURE WAS ELEVATED EXCHANGE SPECIALIST AND MD'S OFFICE WAS NOTIFIED AND AGREED [...] EQUALLY REACTIVE.</paragraph><paragraph></paragraph><paragraph>PATO AND REMINDED THEY CAN CALL [facility] FIRST WITH ANY ISSUES OR CONCERNS. THE REMINDED TO KEEP ALL FOLLOW UP APPOINTMENTS AND TO CONTINUE TAKING MEDICATIONS PRESCRIBED.</paragraph><paragraph></paragraph><paragraph>UPON TALKING TO JOSUE HOGAN, EXCHANGE SPECIALIST OFFICE EMS WAS CALLED AND PATIENT WAS TAKEN TO [facility]. </paragraph><paragraph>DIMA ARNOLD OFFICE NOTIFIED OF SYMPTOMS,NO NEW ORDERS</paragraph> Encounters Start Date/Time End Date/Time Encounter Type Admission Type Attending [facility] Care Facility Care Department Encounter ID Discharge Date Discharge Status Discharge Condition Discharge Reason Percent Goals Met 2025-06-15 00:00:00 2025-08-13 00:00:00 Outpatient NEW ADMISSION MARTELL FRANKLIN [facility] [id number] 54.29
--- OUTSIDE RECORDS SUMMARY | 2025-08-12 18:00 | XMS_ITS | Clinical Summary ---
Author Organization Unknown Care Team Providers Care Toy Assembly Supervisor Name Role Phone DIMA ARNOLD, DEBBY Unavailable Unavailable NOEMI MCGEE, MARTELL Unavailable Unavailabl e Payers Payer Name Policy Type Policy Number Effective Date Expira tion Date MEDICARE - [place] - [facility] [id number] Problems Condition Name Condition Details Condition Category [...] URINARY (TRACT) INFECTIONS Active 08-04 00:00: 00 [facility] (CURRENT) USE OF ASPIRIN Active 08-04 00:00: [...] MAY ACCEPT ORDERS FROM THE FOLLOWING PHYSICIANS: MARINE DRAFTER/TREATING PROVIDERS [code = HOME HEALTH AGENCY MAY ACCEPT ORDERS FROM THE FOLLOWING PHYSICIANS: MARINE DRAFTER/TREATING PROVIDERS] Future Scheduled Test SKILLED NU RSE [...] MAINTAIN SITUATIONAL AWARENESS AND WILL NOTIFY CLINICAL FACILITY PLANNER AND PHYSICIAN/PROVIDER WITH ANY CHANGE IN CONDITION. [code = SKILLED NURSE TO PERFORM ENVIRONMENTAL SAFETY RISK ASSESSMENT AND FALL RISK ASSESSMENT AND PROVIDE INSTRUCTION TO IMPLEMENT ENVIRONMENTAL SAFETY AND FALL PREVENTION STRATEGIES THROUGHOUT THE CERTIFICATION PERIOD. SKILLED NURSE WILL MAINTAIN SITUATIONAL AWARENESS AND WILL NOTIFY CLINICAL FACILITY PLANNER AND PHYSICIAN/PROVIDER WITH ANY CHANGE IN CONDITION.] [...] CARE WILL BE ESTABLISHED THAT MEETS PATIENT'S HALF-WAY NEEDS AND INCLUDES PATIENT GOAL FOR HOME [...] SIT BACK DOWN. BLOOD PRESSURE WAS ELEVATED BASKETBALL COMMENTATOR AND MD'S OFFICE WAS NOTIFIED AND AGREED [...] EQUALLY REACTIVE.</paragraph><paragraph></paragraph><paragraph>PATO AND REMINDED THEY CAN CALL [facility] FIRST WITH ANY ISSUES OR CONCERNS. THE REMINDED TO KEEP ALL FOLLOW UP APPOINTMENTS AND TO CONTINUE TAKING MEDICATIONS PRESCRIBED.</paragraph><paragraph></paragraph><paragraph>UPON TALKING TO JOSUE HOGAN, BASKETBALL COMMENTATOR OFFICE EMS WAS CALLED AND PATIENT WAS TAKEN TO [facility]. </paragraph><paragraph>DIMA ARNOLD OFFICE NOTIFIED OF SYMPTOMS,NO NEW ORDERS</paragraph> Encounters Start Date/Time End Date/Time Encounter Type Admission Type Attending [facility] Care Facility Care Department Encounter ID Discharge Date Discharge Status Discharge Condition Discharge Reason Percent Goals Met 2025-06-15 00:00:00 2025-08-13 00:00:00 Outpatient NEW ADMISSION MARTELL FRANKLIN [facility] [id number] 54.29
--- OUTSIDE RECORDS SUMMARY | 2025-08-12 18:00 | XMS_ITS | Clinical Summary ---
Author Organization Unknown Care Team Providers Care Change Management Facilitator Name Role Phone DIMA ARNOLD, DEBBY Unavailable Unavailable NOEMI MCGEE, MARTELL Unavailable Unavailabl e Payers Payer Name Policy Type Policy Number Effective Date Expira tion Date MEDICARE - [place] [facility] [id number] Problems Condition Name Condition Details Condition Category [...] MAY ACCEPT ORDERS FROM THE FOLLOWING PHYSICIANS: COUNTER POCKET SEWER/TREATING PROVIDERS [code = HOME HEALTH AGENCY MAY ACCEPT ORDERS FROM THE FOLLOWING PHYSICIANS: COUNTER POCKET SEWER/TREATING PROVIDERS] Future Scheduled Test SKILLED NU RSE [...] MAINTAIN SITUATIONAL AWARENESS AND WILL NOTIFY CLINICAL SATELLITE DISH TECHNICIAN AND PHYSICIAN/PROVIDER WITH ANY CHANGE IN CONDITION. [code = SKILLED NURSE TO PERFORM ENVIRONMENTAL SAFETY RISK ASSESSMENT AND FALL RISK ASSESSMENT AND PROVIDE INSTRUCTION TO IMPLEMENT ENVIRONMENTAL SAFETY AND FALL PREVENTION STRATEGIES THROUGHOUT THE CERTIFICATION PERIOD. SKILLED NURSE WILL MAINTAIN SITUATIONAL AWARENESS AND WILL NOTIFY CLINICAL SATELLITE DISH TECHNICIAN AND PHYSICIAN/PROVIDER WITH ANY CHANGE IN CONDITION.] [...] CARE WILL BE ESTABLISHED THAT MEETS PATIENT'S FDC NEEDS AND INCLUDES PATIENT GOAL FOR HOME [...] SIT BACK DOWN. BLOOD PRESSURE WAS ELEVATED DESK ATTENDANT AND MD'S OFFICE WAS NOTIFIED AND [...] EQUALLY REACTIVE.</paragraph><paragraph></paragraph><paragraph>PATO AND REMINDED THEY CAN CALL [facility] FIRST WITH ANY ISSUES OR CONCERNS. THE REMINDED TO KEEP ALL FOLLOW UP APPOINTMENTS AND TO CONTINUE TAKING MEDICATIONS PRESCRIBED.</paragraph><paragraph></paragraph><paragraph>UPON TALKING TO JOSUE HOGAN, DESK ATTENDANT OFFICE EMS WAS CALLED AND PATIENT WAS TAKEN TO [facility]. </paragraph><paragraph>DIMA ARNOLD OFFICE NOTIFIED OF SYMPTOMS,NO NEW ORDERS</paragraph> Encounters Start Date/Time End Date/Time Encounter Type Admission Type Attending [facility] Care Facility Care Department Encounter ID Discharge Date Discharge Status Discharge Condition Discharge Reason Percent Goals Met 2025-06-15 00:00:00 2025-08-13 00:00:00 Outpatient NEW ADMISSION MARTELL FRANKLIN [facility] [id number] 54.29
--- OUTSIDE RECORDS SUMMARY | 2025-08-12 18:00 | XMS_ITS | Clinical Summary ---
Author Organization Unknown Care Team Providers Care Professional System Administrator Name Role Phone DIMA ARNOLD, DEBBY Unavailable Unavailable NOEMI MCGEE, MARTELL Unavailable Unavailabl e Payers Payer Name Policy Type Policy Number Effective Date Expira tion Date MEDICARE - [place] - [facility] [id number] Problems Condition Name Condition Details Condition Category [...] URINARY (TRACT) INFECTIONS Active 08-04 00:00: 00 [place] (CURRENT) USE OF ASPIRIN Active 08-04 00:00: [...] MAY ACCEPT ORDERS FROM THE FOLLOWING PHYSICIANS: WOMEN'S STUDIES LECTURER/TREATING PROVIDERS [code = HOME HEALTH AGENCY MAY ACCEPT ORDERS FROM THE FOLLOWING PHYSICIANS: WOMEN'S STUDIES LECTURER/TREATING PROVIDERS] Future Scheduled Test SKILLED NU RSE [...] MAINTAIN SITUATIONAL AWARENESS AND WILL NOTIFY CLINICAL TREATMENT PLANT OPERATOR AND PHYSICIAN/PROVIDER WITH ANY CHANGE IN CONDITION. [code = SKILLED NURSE TO PERFORM ENVIRONMENTAL SAFETY RISK ASSESSMENT AND FALL RISK ASSESSMENT AND PROVIDE INSTRUCTION TO IMPLEMENT ENVIRONMENTAL SAFETY AND FALL PREVENTION STRATEGIES THROUGHOUT THE CERTIFICATION PERIOD. SKILLED NURSE WILL MAINTAIN SITUATIONAL AWARENESS AND WILL NOTIFY CLINICAL TREATMENT PLANT OPERATOR AND PHYSICIAN/PROVIDER WITH ANY CHANGE IN [...] SIT BACK DOWN. BLOOD PRESSURE WAS ELEVATED AVICULTURIST AND MD'S OFFICE WAS NOTIFIED AND AGREED [...] EQUALLY REACTIVE.</paragraph><paragraph></paragraph><paragraph>PATO AND REMINDED THEY CAN CALL [facility] FIRST WITH ANY ISSUES OR CONCERNS. THE REMINDED TO KEEP ALL FOLLOW UP APPOINTMENTS AND TO CONTINUE TAKING MEDICATIONS PRESCRIBED.</paragraph><paragraph></paragraph><paragraph>UPON TALKING TO JOSUE HOGAN, AVICULTURIST OFFICE EMS WAS CALLED AND PATIENT WAS TAKEN TO [facility]. </paragraph><paragraph>DIMA ARNOLD OFFICE NOTIFIED OF SYMPTOMS,NO NEW ORDERS</paragraph> Encounters Start Date/Time End Date/Time Encounter Type Admission Type Attending [facility] Care Facility Care Department Encounter ID Discharge Date Discharge Status Discharge Condition Discharge Reason Percent Goals Met 2025-06-15 00:00:00 2025-08-13 00:00:00 Outpatient NEW ADMISSION MARTELL FRANKLIN [facility] [id number] 54.29
--- OUTSIDE RECORDS SUMMARY | 2025-08-12 18:00 | XMS_ITS | Clinical Summary ---
Author Organization Unknown Care Team Providers Care Certified Alcohol Drug Counselor Name Role Phone DIMA ARNOLD, DEBBY Unavailable Unavailable NOEMI MCGEE, MARTELL Unavailable Unavailabl e Payers Payer Name Policy Type Policy Number Effective Date Expira tion Date MEDICARE - [place] - [facility] [id number] Problems Condition Name Condition Details Condition Category [...] MAY ACCEPT ORDERS FROM THE FOLLOWING PHYSICIANS: CUTTING MACHINE OFFBEARER/TREATING PROVIDERS [code = HOME HEALTH AGENCY MAY ACCEPT ORDERS FROM THE FOLLOWING PHYSICIANS: CUTTING MACHINE OFFBEARER/TREATING PROVIDERS] Future Scheduled Test SKILLED NU RSE [...] MAINTAIN SITUATIONAL AWARENESS AND WILL NOTIFY CLINICAL SENIOR HARDWARE ENGINEER AND PHYSICIAN/PROVIDER WITH ANY CHANGE IN CONDITION. [code = SKILLED NURSE TO PERFORM ENVIRONMENTAL SAFETY RISK ASSESSMENT AND FALL RISK ASSESSMENT AND PROVIDE INSTRUCTION TO IMPLEMENT ENVIRONMENTAL SAFETY AND FALL PREVENTION STRATEGIES THROUGHOUT THE CERTIFICATION PERIOD. SKILLED NURSE WILL MAINTAIN SITUATIONAL AWARENESS AND WILL NOTIFY CLINICAL SENIOR HARDWARE ENGINEER AND PHYSICIAN/PROVIDER WITH ANY CHANGE IN CONDITION.] [...] CARE WILL BE ESTABLISHED THAT MEETS PATIENT'S [facility] NEEDS AND INCLUDES PATIENT GOAL FOR HOME [...] SIT BACK DOWN. BLOOD PRESSURE WAS ELEVATED BEEF PLUCK TRIMMER AND MD'S OFFICE WAS NOTIFIED AND AGREED [...] EQUALLY REACTIVE.</paragraph><paragraph></paragraph><paragraph>PATO AND REMINDED THEY CAN CALL [facility] FIRST WITH ANY ISSUES OR CONCERNS. THE REMINDED TO KEEP ALL FOLLOW UP APPOINTMENTS AND TO CONTINUE TAKING MEDICATIONS PRESCRIBED.</paragraph><paragraph></paragraph><paragraph>UPON TALKING TO JOSUE HOGAN, BEEF PLUCK TRIMMER OFFICE EMS WAS CALLED AND PATIENT WAS TAKEN TO [facility]. </paragraph><paragraph>DIMA ARNOLD OFFICE NOTIFIED OF SYMPTOMS,NO NEW ORDERS</paragraph> Encounters Start Date/Time End Date/Time Encounter Type Admission Type Attending [facility] Care Facility Care Department Encounter ID Discharge Date Discharge Status Discharge Condition Discharge Reason Percent Goals Met 2025-06-15 00:00:00 2025-08-13 00:00:00 Outpatient NEW ADMISSION MARTELL FRANKLIN [facility] [id number] 54.29
--- OUTSIDE RECORDS SUMMARY | 2025-08-12 18:00 | XMS_ITS | Clinical Summary ---
Author Organization Unknown Care Team Providers Care Claim Benefit Specialist Name Role Phone DIMA ARNOLD, DEBBY Unavailable Unavailable NOEMI MCGEE, MARTELL Unavailable Unavailabl e Payers Payer Name Policy Type Policy Number Effective Date Expira tion Date MEDICARE - [place] - [facility] [id number] Problems Condition Name Condition Details Condition Category [...] MAY ACCEPT ORDERS FROM THE FOLLOWING PHYSICIANS: RN CARDIOLOGY/TREATING PROVIDERS [code = HOME HEALTH AGENCY MAY ACCEPT ORDERS FROM THE FOLLOWING PHYSICIANS: RN CARDIOLOGY/TREATING PROVIDERS] Future Scheduled Test SKILLED NU RSE [...] MAINTAIN SITUATIONAL AWARENESS AND WILL NOTIFY CLINICAL CITRIX ADMINISTRATOR AND PHYSICIAN/PROVIDER WITH ANY CHANGE IN CONDITION. [code = SKILLED NURSE TO PERFORM ENVIRONMENTAL SAFETY RISK ASSESSMENT AND FALL RISK ASSESSMENT AND PROVIDE INSTRUCTION TO IMPLEMENT ENVIRONMENTAL SAFETY AND FALL PREVENTION STRATEGIES THROUGHOUT THE CERTIFICATION PERIOD. SKILLED NURSE WILL MAINTAIN SITUATIONAL AWARENESS AND WILL NOTIFY CLINICAL CITRIX ADMINISTRATOR AND PHYSICIAN/PROVIDER WITH ANY CHANGE IN CONDITION.] [...] CARE WILL BE ESTABLISHED THAT MEETS PATIENT'S [facility] NEEDS AND INCLUDES PATIENT GOAL FOR HOME [...] SIT BACK DOWN. BLOOD PRESSURE WAS ELEVATED FITTING ROOM INSPECTOR AND MD'S OFFICE WAS NOTIFIED AND [...] EQUALLY REACTIVE.</paragraph><paragraph></paragraph><paragraph>PATO AND REMINDED THEY CAN CALL [facility] FIRST WITH ANY ISSUES OR CONCERNS. THE REMINDED TO KEEP ALL FOLLOW UP APPOINTMENTS AND TO CONTINUE TAKING MEDICATIONS PRESCRIBED.</paragraph><paragraph></paragraph><paragraph>UPON TALKING TO JOSUE HOGAN, FITTING ROOM INSPECTOR OFFICE EMS WAS CALLED AND PATIENT WAS TAKEN TO [facility]. </paragraph><paragraph>DIMA ARNOLD OFFICE NOTIFIED OF SYMPTOMS,NO NEW ORDERS</paragraph> Encounters Start Date/Time End Date/Time Encounter Type Admission Type Attending [facility] Care Facility Care Department Encounter ID Discharge Date Discharge Status Discharge Condition Discharge Reason Percent Goals Met 2025-06-15 00:00:00 2025-08-13 00:00:00 Outpatient NEW ADMISSION MARTELL FRANKLIN [facility] [id number] 54.29
--- OUTSIDE RECORDS SUMMARY | 2025-08-12 18:00 | XMS_ITS | Clinical Summary ---
Author Organization Unknown Care Team Providers Care Heavy Media Operator Name Role Phone DIMA ARNOLD, DEBBY Unavailable Unavailable NOEMI MCGEE, MARTELL Unavailable Unavailabl e Payers Payer Name Policy Type Policy Number Effective Date Expira tion Date MEDICARE - [place] - [facility] [id number] Problems Condition Name Condition Details Condition Category [...] MAY ACCEPT ORDERS FROM THE FOLLOWING PHYSICIANS: FIELD TECH/TREATING PROVIDERS [code = HOME HEALTH AGENCY MAY ACCEPT ORDERS FROM THE FOLLOWING PHYSICIANS: FIELD TECH/TREATING PROVIDERS] Future Scheduled Test SKILLED NU RSE [...] MAINTAIN SITUATIONAL AWARENESS AND WILL NOTIFY CLINICAL SAW EDGE FUSER CIRCULAR AND PHYSICIAN/PROVIDER WITH ANY CHANGE IN CONDITION. [code = SKILLED NURSE TO PERFORM ENVIRONMENTAL SAFETY RISK ASSESSMENT AND FALL RISK ASSESSMENT AND PROVIDE INSTRUCTION TO IMPLEMENT ENVIRONMENTAL SAFETY AND FALL PREVENTION STRATEGIES THROUGHOUT THE CERTIFICATION PERIOD. SKILLED NURSE WILL MAINTAIN SITUATIONAL AWARENESS AND WILL NOTIFY CLINICAL SAW EDGE FUSER CIRCULAR AND PHYSICIAN/PROVIDER WITH ANY CHANGE IN CONDITION.] [...] SIT BACK DOWN. BLOOD PRESSURE WAS ELEVATED MASONRY CONTRACTOR ADMINISTRATOR AND MD'S OFFICE WAS NOTIFIED AND AGREED [...] EQUALLY REACTIVE.</paragraph><paragraph></paragraph><paragraph>PATO AND REMINDED THEY CAN CALL [facility] FIRST WITH ANY ISSUES OR CONCERNS. THE REMINDED TO KEEP ALL FOLLOW UP APPOINTMENTS AND TO CONTINUE TAKING MEDICATIONS PRESCRIBED.</paragraph><paragraph></paragraph><paragraph>UPON TALKING TO JOSUE HOGAN, MASONRY CONTRACTOR ADMINISTRATOR OFFICE EMS WAS CALLED AND PATIENT WAS TAKEN TO [facility]. </paragraph><paragraph>DIMA ARNOLD OFFICE NOTIFIED OF SYMPTOMS,NO NEW ORDERS</paragraph> Encounters Start Date/Time End Date/Time Encounter Type Admission Type Attending [facility] Care Facility Care Department Encounter ID Discharge Date Discharge Status Discharge Condition Discharge Reason Percent Goals Met 2025-06-15 00:00:00 2025-08-13 00:00:00 Outpatient NEW ADMISSION MARTELL FRANKLIN [facility] [id number] 54.29
--- OUTSIDE RECORDS SUMMARY | 2025-08-12 18:00 | XMS_ITS | Clinical Summary ---
Author Organization Unknown Care Team Providers Care Tanker Serviceman Name Role Phone DIMA ARNOLD, DEBBY Unavailable Unavailable NOEMI MCGEE, MARTELL Unavailable Unavailabl e Payers Payer Name Policy Type Policy Number Effective Date Expira tion Date MEDICARE - [place] - [facility] [id number] Problems Condition Name Condition Details Condition Category [...] MAY ACCEPT ORDERS FROM THE FOLLOWING PHYSICIANS: FOREIGN CORRESPONDENT/TREATING PROVIDERS [code = HOME HEALTH AGENCY MAY ACCEPT ORDERS FROM THE FOLLOWING PHYSICIANS: FOREIGN CORRESPONDENT/TREATING PROVIDERS] Future Scheduled Test SKILLED NU RSE [...] MAINTAIN SITUATIONAL AWARENESS AND WILL NOTIFY CLINICAL GIRLS TENNIS COACH AND PHYSICIAN/PROVIDER WITH ANY CHANGE IN CONDITION. [code = SKILLED NURSE TO PERFORM ENVIRONMENTAL SAFETY RISK ASSESSMENT AND FALL RISK ASSESSMENT AND PROVIDE INSTRUCTION TO IMPLEMENT ENVIRONMENTAL SAFETY AND FALL PREVENTION STRATEGIES THROUGHOUT THE CERTIFICATION PERIOD. SKILLED NURSE WILL MAINTAIN SITUATIONAL AWARENESS AND WILL NOTIFY CLINICAL GIRLS TENNIS COACH AND PHYSICIAN/PROVIDER WITH ANY CHANGE IN CONDITION.] [...] SIT BACK DOWN. BLOOD PRESSURE WAS ELEVATED WEAVER TIRE CORD AND MD'S OFFICE WAS NOTIFIED AND AGREED [...] TAKING MEDICATIONS PRESCRIBED.</paragraph><paragraph></paragraph><paragraph>UPON TALKING TO JOSUE HOGAN, WEAVER TIRE CORD OFFICE EMS WAS CALLED AND PATIENT WAS TAKEN TO [facility]. </paragraph><paragraph>DIMA ARNOLD OFFICE NOTIFIED OF SYMPTOMS,NO NEW ORDERS</paragraph> Encounters Start Date/Time End Date/Time Encounter Type Admission Type Attending [facility] Care Facility Care Department Encounter ID Discharge Date Discharge Status Discharge Condition Discharge Reason Percent Goals Met 2025-06-15 00:00:00 2025-08-13 00:00:00 Outpatient NEW ADMISSION MARTELL FRANKLIN [facility] [id number] 54.29
--- OUTSIDE RECORDS SUMMARY | 2025-08-12 18:00 | XMS_ITS | Clinical Summary ---
Author Organization Unknown Care Team Providers Care Quality Process Lead Name Role Phone DIMA ARNOLD, DEBBY Unavailable Unavailable NOEMI MCGEE, MARTELL Unavailable Unavailabl e Payers Payer Name Policy Type Policy Number Effective Date Expira tion Date MEDICARE - [place] - [facility] [id number] Problems Condition Name Condition Details Condition Category [...] MAY ACCEPT ORDERS FROM THE FOLLOWING PHYSICIANS: TRANSPORTATION LEAD/TREATING PROVIDERS [code = HOME HEALTH AGENCY MAY ACCEPT ORDERS FROM THE FOLLOWING PHYSICIANS: TRANSPORTATION LEAD/TREATING PROVIDERS] Future Scheduled Test SKILLED NU RSE [...] MAINTAIN SITUATIONAL AWARENESS AND WILL NOTIFY CLINICAL ELECTRONICS SYSTEM MECHANIC AND PHYSICIAN/PROVIDER WITH ANY CHANGE IN CONDITION. [code = SKILLED NURSE TO PERFORM ENVIRONMENTAL SAFETY RISK ASSESSMENT AND FALL RISK ASSESSMENT AND PROVIDE INSTRUCTION TO IMPLEMENT ENVIRONMENTAL SAFETY AND FALL PREVENTION STRATEGIES THROUGHOUT THE CERTIFICATION PERIOD. SKILLED NURSE WILL MAINTAIN SITUATIONAL AWARENESS AND WILL NOTIFY CLINICAL ELECTRONICS SYSTEM MECHANIC AND PHYSICIAN/PROVIDER WITH ANY CHANGE IN CONDITION.] [...] SIT BACK DOWN. BLOOD PRESSURE WAS ELEVATED DIGITAL CAMPAIGN MANAGER AND MD'S OFFICE WAS NOTIFIED AND [...] EQUALLY REACTIVE.</paragraph><paragraph></paragraph><paragraph>PATO AND REMINDED THEY CAN CALL [facility] FIRST WITH ANY ISSUES OR CONCERNS. THE REMINDED TO KEEP ALL FOLLOW UP APPOINTMENTS AND TO CONTINUE TAKING MEDICATIONS PRESCRIBED.</paragraph><paragraph></paragraph><paragraph>UPON TALKING TO JOSUE HOGAN, DIGITAL CAMPAIGN MANAGER OFFICE EMS WAS CALLED AND PATIENT WAS TAKEN TO [facility]. </paragraph><paragraph>DIMA ARNOLD OFFICE NOTIFIED OF SYMPTOMS,NO NEW ORDERS</paragraph> Encounters Start Date/Time End Date/Time Encounter Type Admission Type Attending [facility] Care Facility Care Department Encounter ID Discharge Date Discharge Status Discharge Condition Discharge Reason Percent Goals Met 2025-06-15 00:00:00 2025-08-13 00:00:00 Outpatient NEW ADMISSION MARTELL FRANKLIN [facility] [id number] 54.29
--- OUTSIDE RECORDS SUMMARY | 2025-08-12 18:00 | XMS_ITS | Clinical Summary ---
Author Organization Unknown Care Team Providers Care Abrasive Sawyer Name Role Phone DIMA ARNOLD, DEBBY Unavailable Unavailable NOEMI MCGEE, MARTELL Unavailable Unavailabl e Payers Payer Name Policy Type Policy Number Effective Date Expira tion Date MEDICARE - [place] [facility] [id number] Problems Condition Name Condition Details Condition Category [...] URINARY (TRACT) INFECTIONS Active 08-04 00:00: 00 NURSING HOME (CURRENT) USE OF ASPIRIN Active 08-04 [...] MAY ACCEPT ORDERS FROM THE FOLLOWING PHYSICIANS: SOLE ROUNDING MACHINE OPERATOR/TREATING PROVIDERS [code = HOME HEALTH AGENCY MAY ACCEPT ORDERS FROM THE FOLLOWING PHYSICIANS: SOLE ROUNDING MACHINE OPERATOR/TREATING PROVIDERS] Future Scheduled Test SKILLED NU [...] MAINTAIN SITUATIONAL AWARENESS AND WILL NOTIFY CLINICAL CHIEF TALENT OFFICER AND PHYSICIAN/PROVIDER WITH ANY CHANGE IN CONDITION. [code = SKILLED NURSE TO PERFORM ENVIRONMENTAL SAFETY RISK ASSESSMENT AND FALL RISK ASSESSMENT AND PROVIDE INSTRUCTION TO IMPLEMENT ENVIRONMENTAL SAFETY AND FALL PREVENTION STRATEGIES THROUGHOUT THE CERTIFICATION PERIOD. SKILLED NURSE WILL MAINTAIN SITUATIONAL AWARENESS AND WILL NOTIFY CLINICAL CHIEF TALENT OFFICER AND PHYSICIAN/PROVIDER WITH ANY CHANGE IN CONDITION.] [...] SIT BACK DOWN. BLOOD PRESSURE WAS ELEVATED TEST PREPARATION TUTOR AND MD'S OFFICE WAS NOTIFIED AND AGREED [...] EQUALLY REACTIVE.</paragraph><paragraph></paragraph><paragraph>PATO AND REMINDED THEY CAN CALL [facility] FIRST WITH ANY ISSUES OR CONCERNS. THE REMINDED TO KEEP ALL FOLLOW UP APPOINTMENTS AND TO CONTINUE TAKING MEDICATIONS PRESCRIBED.</paragraph><paragraph></paragraph><paragraph>UPON TALKING TO JOSUE HOGAN, TEST PREPARATION TUTOR OFFICE EMS WAS CALLED AND PATIENT WAS TAKEN TO [facility]. </paragraph><paragraph>DIMA ARNOLD OFFICE NOTIFIED OF SYMPTOMS,NO NEW ORDERS</paragraph> Encounters Start Date/Time End Date/Time Encounter Type Admission Type Attending [facility] Care Facility Care Department Encounter ID Discharge Date Discharge Status Discharge Condition Discharge Reason Percent Goals Met 2025-06-15 00:00:00 2025-08-13 00:00:00 Outpatient NEW ADMISSION MARTELL FRANKLIN [facility] [id number] 54.29
--- OUTSIDE RECORDS SUMMARY | 2025-08-12 18:00 | XMS_ITS | Clinical Summary ---
Author Organization Unknown Care Team Providers Care Hotel Superintendent Name Role Phone DIMA ARNOLD, DEBBY Unavailable Unavailable NOEMI MCGEE, MARTELL Unavailable Unavailabl e Payers Payer Name Policy Type Policy Number Effective Date Expira tion Date MEDICARE - [place] - [facility] [id number] Problems Condition Name Condition Details Condition Category [...] URINARY (TRACT) INFECTIONS Active 08-04 00:00: 00 PENITENTIARY (CURRENT) USE OF ASPIRIN Active 08-04 00:00: [...] MAY ACCEPT ORDERS FROM THE FOLLOWING PHYSICIANS: RICE FARMWORKER/TREATING PROVIDERS [code = HOME HEALTH AGENCY MAY ACCEPT ORDERS FROM THE FOLLOWING PHYSICIANS: RICE FARMWORKER/TREATING PROVIDERS] Future Scheduled Test SKILLED NU RSE [...] MAINTAIN SITUATIONAL AWARENESS AND WILL NOTIFY CLINICAL ENERGY PROJECTS LEAD AND PHYSICIAN/PROVIDER WITH ANY CHANGE IN CONDITION. [code = SKILLED NURSE TO PERFORM ENVIRONMENTAL SAFETY RISK ASSESSMENT AND FALL RISK ASSESSMENT AND PROVIDE INSTRUCTION TO IMPLEMENT ENVIRONMENTAL SAFETY AND FALL PREVENTION STRATEGIES THROUGHOUT THE CERTIFICATION PERIOD. SKILLED NURSE WILL MAINTAIN SITUATIONAL AWARENESS AND WILL NOTIFY CLINICAL ENERGY PROJECTS LEAD AND PHYSICIAN/PROVIDER WITH ANY CHANGE IN CONDITION.] [...] SIT BACK DOWN. BLOOD PRESSURE WAS ELEVATED CLOTH PIECER AND MD'S OFFICE WAS NOTIFIED AND AGREED [...] EQUALLY REACTIVE.</paragraph><paragraph></paragraph><paragraph>PATO AND REMINDED THEY CAN CALL [facility] FIRST WITH ANY ISSUES OR CONCERNS. THE REMINDED TO KEEP ALL FOLLOW UP APPOINTMENTS AND TO CONTINUE TAKING MEDICATIONS PRESCRIBED.</paragraph><paragraph></paragraph><paragraph>UPON TALKING TO JOSUE HOGAN, CLOTH PIECER OFFICE EMS WAS CALLED AND PATIENT WAS TAKEN TO [facility]. </paragraph><paragraph>DIMA ARNOLD OFFICE NOTIFIED OF SYMPTOMS,NO NEW ORDERS</paragraph> Encounters Start Date/Time End Date/Time Encounter Type Admission Type Attending [facility] Care Facility Care Department Encounter ID Discharge Date Discharge Status Discharge Condition Discharge Reason Percent Goals Met 2025-06-15 00:00:00 2025-08-13 00:00:00 Outpatient NEW ADMISSION MARTELL FRANKLIN [facility] [id number] 54.29
--- OUTSIDE RECORDS SUMMARY | 2025-08-12 18:00 | XMS_ITS | Clinical Summary ---
Author Organization Unknown Care Team Providers Care Forder Operator Name Role Phone DIMA ARNOLD, DEBBY Unavailable Unavailable NOEMI MCGEE, MARTELL Unavailable Unavailabl e Payers Payer Name Policy Type Policy Number Effective Date Expira tion Date MEDICARE - [place] - [facility] [id number] Problems Condition Name Condition Details Condition Category [...] URINARY (TRACT) INFECTIONS Active 08-04 00:00: 00 PRISON (CURRENT) USE OF ASPIRIN Active 08-04 00:00: [...] MAY ACCEPT ORDERS FROM THE FOLLOWING PHYSICIANS: NURSING SERVICE ADMINISTRATOR/TREATING PROVIDERS [code = HOME HEALTH AGENCY MAY ACCEPT ORDERS FROM THE FOLLOWING PHYSICIANS: NURSING SERVICE ADMINISTRATOR/TREATING PROVIDERS] Future Scheduled Test SKILLED NU RSE [...] MAINTAIN SITUATIONAL AWARENESS AND WILL NOTIFY CLINICAL SHOOK SPLICER AND PHYSICIAN/PROVIDER WITH ANY CHANGE IN CONDITION. [code = SKILLED NURSE TO PERFORM ENVIRONMENTAL SAFETY RISK ASSESSMENT AND FALL RISK ASSESSMENT AND PROVIDE INSTRUCTION TO IMPLEMENT ENVIRONMENTAL SAFETY AND FALL PREVENTION STRATEGIES THROUGHOUT THE CERTIFICATION PERIOD. SKILLED NURSE WILL MAINTAIN SITUATIONAL AWARENESS AND WILL NOTIFY CLINICAL SHOOK SPLICER AND PHYSICIAN/PROVIDER WITH ANY CHANGE IN [...] CARE WILL BE ESTABLISHED THAT MEETS PATIENT'S INTERMEDIATE NEEDS AND INCLUDES PATIENT GOAL FOR HOME [...] SIT BACK DOWN. BLOOD PRESSURE WAS ELEVATED RETAIL BUSINESS DEVELOPMENT MANAGER AND MD'S OFFICE WAS NOTIFIED AND [...] EQUALLY REACTIVE.</paragraph><paragraph></paragraph><paragraph>PATO AND REMINDED THEY CAN CALL [facility] FIRST WITH ANY ISSUES OR CONCERNS. THE REMINDED TO KEEP ALL FOLLOW UP APPOINTMENTS AND TO CONTINUE TAKING MEDICATIONS PRESCRIBED.</paragraph><paragraph></paragraph><paragraph>UPON TALKING TO JOSUE HOGAN, RETAIL BUSINESS DEVELOPMENT MANAGER OFFICE EMS WAS CALLED AND PATIENT WAS TAK[facility] TO [facility]. </paragraph><paragraph>DIMA ARNOLD OFFICE NOTIFIED OF SYMPTOMS,NO NEW ORDERS</paragraph> Encounters Start Date/Time End Date/Time Encounter Type Admission Type Attending [facility] Care Facility Care Department Encounter ID Discharge Date Discharge Status Discharge Condition Discharge Reason Percent Goals Met 2025-06-15 00:00:00 2025-08-13 00:00:00 Outpatient NEW ADMISSION MARTELL FRANKLIN [facility] [id number] 54.29
--- OUTSIDE RECORDS SUMMARY | 2025-08-12 18:00 | XMS_ITS | Clinical Summary ---
Author Organization Unknown Care Team Providers Care Admission Specialist Name Role Phone DIMA ARNOLD, DEBBY Unavailable Unavailable NOEMI MCGEE, MARTELL Unavailable Unavailabl e Payers Payer Name Policy Type Policy Number Effective Date Expira tion Date MEDICARE - [place] - [facility] [id number] Problems Condition Name Condition Details Condition Category [...] MAY ACCEPT ORDERS FROM THE FOLLOWING PHYSICIANS: GRAPPLE YARDER OPERATOR/TREATING PROVIDERS [code = HOME HEALTH AGENCY MAY ACCEPT ORDERS FROM THE FOLLOWING PHYSICIANS: GRAPPLE YARDER OPERATOR/TREATING PROVIDERS] Future Scheduled Test SKILLED NU [...] MAINTAIN SITUATIONAL AWARENESS AND WILL NOTIFY CLINICAL COSMETICS PRESSER AND PHYSICIAN/PROVIDER WITH ANY CHANGE IN CONDITION. [code = SKILLED NURSE TO PERFORM ENVIRONMENTAL SAFETY RISK ASSESSMENT AND FALL RISK ASSESSMENT AND PROVIDE INSTRUCTION TO IMPLEMENT ENVIRONMENTAL SAFETY AND FALL PREVENTION STRATEGIES THROUGHOUT THE CERTIFICATION PERIOD. SKILLED NURSE WILL MAINTAIN SITUATIONAL AWARENESS AND WILL NOTIFY CLINICAL COSMETICS PRESSER AND PHYSICIAN/PROVIDER WITH ANY CHANGE IN CONDITION.] [...] CARE WILL BE ESTABLISHED THAT MEETS PATIENT'S LONG TERM NEEDS AND INCLUDES PATIENT GOAL FOR HOME [...] SIT BACK DOWN. BLOOD PRESSURE WAS ELEVATED TAXICAB STARTER AND MD'S OFFICE WAS NOTIFIED AND AGREED [...] EQUALLY REACTIVE.</paragraph><paragraph></paragraph><paragraph>PATO AND REMINDED THEY CAN CALL [facility] FIRST WITH ANY ISSUES OR CONCERNS. THE REMINDED TO KEEP ALL FOLLOW UP APPOINTMENTS AND TO CONTINUE TAKING MEDICATIONS PRESCRIBED.</paragraph><paragraph></paragraph><paragraph>UPON TALKING TO JOSUE HOGAN, TAXICAB STARTER OFFICE EMS WAS CALLED AND PATIENT WAS TAKEN TO [facility]. </paragraph><paragraph>DIMA ARNOLD OFFICE NOTIFIED OF SYMPTOMS,NO NEW ORDERS</paragraph> Encounters Start Date/Time End Date/Time Encounter Type Admission Type Attending [facility] Care Facility Care Department Encounter ID Discharge Date Discharge Status Discharge Condition Discharge Reason Percent Goals Met 2025-06-15 00:00:00 2025-08-13 00:00:00 Outpatient NEW ADMISSION MARTELL FRANKLIN [facility] [id number] 54.29
--- OUTSIDE RECORDS SUMMARY | 2025-08-12 18:00 | XMS_ITS | Clinical Summary ---
Author Organization Unknown Care Team Providers Care Payroll Assistant Name Role Phone DIMA ARNOLD, DEBBY Unavailable Unavailable NOEMI MCGEE, MARTELL Unavailable Unavailabl e Payers Payer Name Policy Type Policy Number Effective Date Expira tion Date MEDICARE - [place] - [facility] [id number] Problems Condition Name Condition Details Condition Category [...] URINARY (TRACT) INFECTIONS Active 08-04 00:00: 00 SKILLED NURSING (CURRENT) USE OF ASPIRIN Active 08-04 00:00: [...] MAY ACCEPT ORDERS FROM THE FOLLOWING PHYSICIANS: ROLL OPERATOR/TREATING PROVIDERS [code = HOME HEALTH AGENCY MAY ACCEPT ORDERS FROM THE FOLLOWING PHYSICIANS: ROLL OPERATOR/TREATING PROVIDERS] Future Scheduled Test SKILLED NU [...] MAINTAIN SITUATIONAL AWARENESS AND WILL NOTIFY CLINICAL CUSTOMS OPENER VERIFIER PACKER AND PHYSICIAN/PROVIDER WITH ANY CHANGE IN CONDITION. [code = SKILLED NURSE TO PERFORM ENVIRONMENTAL SAFETY RISK ASSESSMENT AND FALL RISK ASSESSMENT AND PROVIDE INSTRUCTION TO IMPLEMENT ENVIRONMENTAL SAFETY AND FALL PREVENTION STRATEGIES THROUGHOUT THE CERTIFICATION PERIOD. SKILLED NURSE WILL MAINTAIN SITUATIONAL AWARENESS AND WILL NOTIFY CLINICAL CUSTOMS OPENER VERIFIER PACKER AND PHYSICIAN/PROVIDER WITH ANY CHANGE IN CONDITION.] [...] SIT BACK DOWN. BLOOD PRESSURE WAS ELEVATED GLASS INSTALLER TECHNICIAN AND MD'S OFFICE WAS NOTIFIED AND AGREED [...] TAKING MEDICATIONS PRESCRIBED.</paragraph><paragraph></paragraph><paragraph>UPON TALKING TO JOSUE HOGAN, GLASS INSTALLER TECHNICIAN OFFICE EMS WAS CALLED AND PATIENT WAS TAKEN TO [facility]. </paragraph><paragraph>DIMA ARNOLD OFFICE NOTIFIED OF SYMPTOMS,NO NEW ORDERS</paragraph> Encounters Start Date/Time End Date/Time Encounter Type Admission Type Attending [facility] Care Department Encounter ID Discharge Date Discharge Status Discharge Condition Discharge Reason Percent Goals Met 2025-06-15 00:00:00 2025-08-13 00:00:00 Outpatient NEW ADMISSION MARTELL RFANKLIN [facility] [id number] 54.29
--- OUTSIDE RECORDS SUMMARY | 2025-08-12 18:00 | XMS_ITS | Clinical Summary ---
Author Organization Unknown Care Team Providers Care Voice Coach Name Role Phone DIMA ARNOLD, DEBBY Unavailable Unavailable NOEMI MCGEE, MARTELL Unavailable Unavailabl e Payers Payer Name Policy Type Policy Number Effective Date Expira tion Date MEDICARE - [place] - [facility] [id number] Problems Condition Name Condition Details Condition Category [...] MAY ACCEPT ORDERS FROM THE FOLLOWING PHYSICIANS: SUPERVISOR ENGRAVING/TREATING PROVIDERS [code = HOME HEALTH AGENCY MAY ACCEPT ORDERS FROM THE FOLLOWING PHYSICIANS: SUPERVISOR ENGRAVING/TREATING PROVIDERS] Future Scheduled Test SKILLED NU RSE [...] MAINTAIN SITUATIONAL AWARENESS AND WILL NOTIFY CLINICAL LIBRARIAN SPECIALIST AND PHYSICIAN/PROVIDER WITH ANY CHANGE IN CONDITION. [code = SKILLED NURSE TO PERFORM ENVIRONMENTAL SAFETY RISK ASSESSMENT AND FALL RISK ASSESSMENT AND PROVIDE INSTRUCTION TO IMPLEMENT ENVIRONMENTAL SAFETY AND FALL PREVENTION STRATEGIES THROUGHOUT THE CERTIFICATION PERIOD. SKILLED NURSE WILL MAINTAIN SITUATIONAL AWARENESS AND WILL NOTIFY CLINICAL LIBRARIAN SPECIALIST AND PHYSICIAN/PROVIDER WITH ANY CHANGE IN CONDITION.] [...] CARE WILL BE ESTABLISHED THAT MEETS PATIENT'S FPC NEEDS AND INCLUDES PATIENT GOAL FOR HOME [...] SIT BACK DOWN. BLOOD PRESSURE WAS ELEVATED MANAGER ETL AND MD'S OFFICE WAS NOTIFIED AND AGREED [...] EQUALLY REACTIVE.</paragraph><paragraph></paragraph><paragraph>PATO AND REMINDED THEY CAN CALL [facility] FIRST WITH ANY ISSUES OR CONCERNS. THE REMINDED TO KEEP ALL FOLLOW UP APPOINTMENTS AND TO CONTINUE TAKING MEDICATIONS PRESCRIBED.</paragraph><paragraph></paragraph><paragraph>UPON TALKING TO JOSUE HOGAN, MANAGER ETL OFFICE EMS WAS CALLED AND PATIENT WAS TAKEN TO [facility]. </paragraph><paragraph>DIMA ARNOLD OFFICE NOTIFIED OF SYMPTOMS,NO NEW ORDERS</paragraph> Encounters Start Date/Time End Date/Time Encounter Type Admission Type Attending [facility] Care Facility Care Department Encounter ID Discharge Date Discharge Status Discharge Condition Discharge Reason Percent Goals Met 2025-06-15 00:00:00 2025-08-13 00:00:00 Outpatient NEW ADMISSION MARTELL FRANKLIN [facility] [id number] 54.29
--- OUTSIDE RECORDS SUMMARY | 2025-08-12 18:00 | XMS_ITS | Clinical Summary ---
Author Organization Unknown Care Team Providers Care Risk Assessor Name Role Phone DIMA ARNOLD, DEBBY Unavailable Unavailable NOEMI MCGEE, MARTELL Unavailable Unavailabl e Payers Payer Name Policy Type Policy Number Effective Date Expira tion Date MEDICARE - [place] - [facility] [id number] Problems Condition Name Condition Details Condition Category [...] URINARY (TRACT) INFECTIONS Active 08-04 00:00: 00 HALF-WAY (CURRENT) USE OF ASPIRIN Active 08-04 00:00: [...] MAY ACCEPT ORDERS FROM THE FOLLOWING PHYSICIANS: IT PROGRAMMER ANALYST/TREATING PROVIDERS [code = HOME HEALTH AGENCY MAY ACCEPT ORDERS FROM THE FOLLOWING PHYSICIANS: IT PROGRAMMER ANALYST/TREATING PROVIDERS] Future Scheduled Test SKILLED NU RSE [...] MAINTAIN SITUATIONAL AWARENESS AND WILL NOTIFY CLINICAL DRAW BENCH OPERATOR HELPER AND PHYSICIAN/PROVIDER WITH ANY CHANGE IN CONDITION. [code = SKILLED NURSE TO PERFORM ENVIRONMENTAL SAFETY RISK ASSESSMENT AND FALL RISK ASSESSMENT AND PROVIDE INSTRUCTION TO IMPLEMENT ENVIRONMENTAL SAFETY AND FALL PREVENTION STRATEGIES THROUGHOUT THE CERTIFICATION PERIOD. SKILLED NURSE WILL MAINTAIN SITUATIONAL AWARENESS AND WILL NOTIFY CLINICAL DRAW BENCH OPERATOR HELPER AND PHYSICIAN/PROVIDER WITH ANY CHANGE IN [...] SIT BACK DOWN. BLOOD PRESSURE WAS ELEVATED WEIGHER PACKING AND MD'S OFFICE WAS NOTIFIED AND AGREED [...] TAKING MEDICATIONS PRESCRIBED.</paragraph><paragraph></paragraph><paragraph>UPON TALKING TO JOSUE HOGAN, WEIGHER PACKING OFFICE EMS WAS CALLED AND PATIENT WAS TAKEN TO [facility]. </paragraph><paragraph>DIMA ARNOLD OFFICE NOTIFIED OF SYMPTOMS,NO NEW ORDERS</paragraph> Encounters Start Date/Time End Date/Time Encounter Type Admission Type Attending [facility] Care Department Encounter ID Discharge Date Discharge Status Discharge Condition Discharge Reason Percent Goals Met 2025-06-15 00:00:00 2025-08-13 00:00:00 Outpatient NEW ADMISSION MARTELL FRANKLIN [facility] [id number] 54.29
--- OUTSIDE RECORDS SUMMARY | 2025-08-12 18:00 | XMS_ITS | Clinical Summary ---
Author Organization Unknown Care Team Providers Care Journey Lineman Name Role Phone DIMA ARNOLD, DEBBY Unavailable Unavailable NOEMI MCGEE, MARTELL Unavailable Unavailabl e Payers Payer Name Policy Type Policy Number Effective Date Expira tion Date MEDICARE - [place] - [facility] [id number] Problems Condition Name Condition Details Condition Category [...] MAY ACCEPT ORDERS FROM THE FOLLOWING PHYSICIANS: MOVIE PROJECTIONIST/TREATING PROVIDERS [code = HOME HEALTH AGENCY MAY ACCEPT ORDERS FROM THE FOLLOWING PHYSICIANS: MOVIE PROJECTIONIST/TREATING PROVIDERS] Future Scheduled Test SKILLED NU RSE [...] MAINTAIN SITUATIONAL AWARENESS AND WILL NOTIFY CLINICAL CARTON AND CAN SUPPLY SUPERVISOR AND PHYSICIAN/PROVIDER WITH ANY CHANGE IN CONDITION. [code = SKILLED NURSE TO PERFORM ENVIRONMENTAL SAFETY RISK ASSESSMENT AND FALL RISK ASSESSMENT AND PROVIDE INSTRUCTION TO IMPLEMENT ENVIRONMENTAL SAFETY AND FALL PREVENTION STRATEGIES THROUGHOUT THE CERTIFICATION PERIOD. SKILLED NURSE WILL MAINTAIN SITUATIONAL AWARENESS AND WILL NOTIFY CLINICAL CARTON AND CAN SUPPLY SUPERVISOR AND PHYSICIAN/PROVIDER WITH ANY CHANGE IN [...] SIT BACK DOWN. BLOOD PRESSURE WAS ELEVATED FALL INTERN AND MD'S OFFICE WAS NOTIFIED AND AGREED [...] TAKING MEDICATIONS PRESCRIBED.</paragraph><paragraph></paragraph><paragraph>UPON TALKING TO JOSUE HOGAN, FALL INTERN OFFICE EMS WAS CALLED AND PATIENT WAS TAKEN TO [facility]. </paragraph><paragraph>DIMA ARNOLD OFFICE NOTIFIED OF SYMPTOMS,NO NEW ORDERS</paragraph> Encounters Start Date/Time End Date/Time Encounter Type Admission Type Attending [facility] Care Facility Care Department Encounter ID Discharge Date Discharge Status Discharge Condition Discharge Reason Percent Goals Met 2025-06-15 00:00:00 2025-08-13 00:00:00 Outpatient NEW ADMISSION MARTELL FRANKLIN [facility] [id number] 54.29
--- OUTSIDE RECORDS SUMMARY | 2025-08-12 18:00 | XMS_ITS | Clinical Summary ---
Author Organization Unknown Care Team Providers Care Screw Cutter Name Role Phone DIMA ARNOLD, DEBBY Unavailable Unavailable NOEMI MCGEE, MARTELL Unavailable Unavailabl e Payers Payer Name Policy Type Policy Number Effective Date Expira tion Date MEDICARE - [place] - [facility] [id number] Problems Condition Name Condition Details Condition Category [...] MAY ACCEPT ORDERS FROM THE FOLLOWING PHYSICIANS: ELECTRONICS SUPERVISOR/TREATING PROVIDERS [code = HOME HEALTH AGENCY MAY ACCEPT ORDERS FROM THE FOLLOWING PHYSICIANS: ELECTRONICS SUPERVISOR/TREATING PROVIDERS] Future Scheduled Test SKILLED NU [...] MAINTAIN SITUATIONAL AWARENESS AND WILL NOTIFY CLINICAL FOOD SERVICE TEAM MEMBER AND PHYSICIAN/PROVIDER WITH ANY CHANGE IN CONDITION. [code = SKILLED NURSE TO PERFORM ENVIRONMENTAL SAFETY RISK ASSESSMENT AND FALL RISK ASSESSMENT AND PROVIDE INSTRUCTION TO IMPLEMENT ENVIRONMENTAL SAFETY AND FALL PREVENTION STRATEGIES THROUGHOUT THE CERTIFICATION PERIOD. SKILLED NURSE WILL MAINTAIN SITUATIONAL AWARENESS AND WILL NOTIFY CLINICAL FOOD SERVICE TEAM MEMBER AND PHYSICIAN/PROVIDER WITH ANY CHANGE IN CONDITION.] [...] SIT BACK DOWN. BLOOD PRESSURE WAS ELEVATED 4TH GRADE TEACHER AND MD'S OFFICE WAS NOTIFIED AND AGREED [...] EQUALLY REACTIVE.</paragraph><paragraph></paragraph><paragraph>PATO AND REMINDED THEY CAN CALL [facility] FIRST WITH ANY ISSUES OR CONCERNS. THE REMINDED TO KEEP ALL FOLLOW UP APPOINTMENTS AND TO CONTINUE TAKING MEDICATIONS PRESCRIBED.</paragraph><paragraph></paragraph><paragraph>UPON TALKING TO JOSUE HOGAN, 4TH GRADE TEACHER OFFICE EMS WAS CALLED AND PATIENT WAS TAKEN TO [facility]. </paragraph><paragraph>DIMA ARNOLD OFFICE NOTIFIED OF SYMPTOMS,NO NEW ORDERS</paragraph> Encounters Start Date/Time End Date/Time Encounter Type Admission Type Attending [facility] Care Facility Care Department Encounter ID Discharge Date Discharge Status Discharge Condition Discharge Reason Percent Goals Met 2025-06-15 00:00:00 2025-08-13 00:00:00 Outpatient NEW ADMISSION MARTELL FRANKLIN [facility] [id number] 54.29
--- OUTSIDE RECORDS SUMMARY | 2025-08-12 18:00 | XMS_ITS | Clinical Summary ---
Author Organization Unknown Care Team Providers Care Lens Block Gauger Name Role Phone DIMA ARNOLD, DEBBY Unavailable Unavailable NOEMI MCGEE, MARTELL Unavailable Unavailabl e Payers Payer Name Policy Type Policy Number Effective Date Expira tion Date MEDICARE - [place] - [facility] [id number] Problems Condition Name Condition Details Condition Category [...] URINARY (TRACT) INFECTIONS Active 08-04 00:00: 00 LONG-TERM (CURRENT) USE OF ASPIRIN Active 08-04 00:00: [...] MAY ACCEPT ORDERS FROM THE FOLLOWING PHYSICIANS: FINISHING LAB TECHNICIAN/TREATING PROVIDERS [code = HOME HEALTH AGENCY MAY ACCEPT ORDERS FROM THE FOLLOWING PHYSICIANS: FINISHING LAB TECHNICIAN/TREATING PROVIDERS] Future Scheduled Test SKILLED NU RSE [...] MAINTAIN SITUATIONAL AWARENESS AND WILL NOTIFY CLINICAL MARINE OIL TERMINAL SUPERINTENDENT AND PHYSICIAN/PROVIDER WITH ANY CHANGE IN CONDITION. [code = SKILLED NURSE TO PERFORM ENVIRONMENTAL SAFETY RISK ASSESSMENT AND FALL RISK ASSESSMENT AND PROVIDE INSTRUCTION TO IMPLEMENT ENVIRONMENTAL SAFETY AND FALL PREVENTION STRATEGIES THROUGHOUT THE CERTIFICATION PERIOD. SKILLED NURSE WILL MAINTAIN SITUATIONAL AWARENESS AND WILL NOTIFY CLINICAL MARINE OIL TERMINAL SUPERINTENDENT AND PHYSICIAN/PROVIDER WITH ANY CHANGE IN CONDITION.] [...] SIT BACK DOWN. BLOOD PRESSURE WAS ELEVATED QUALITY REP AND MD'S OFFICE WAS NOTIFIED AND AGREED [...] EQUALLY REACTIVE.</paragraph><paragraph></paragraph><paragraph>PATO AND REMINDED THEY CAN CALL [facility] FIRST WITH ANY ISSUES OR CONCERNS. THE REMINDED TO KEEP ALL FOLLOW UP APPOINTMENTS AND TO CONTINUE TAKING MEDICATIONS PRESCRIBED.</paragraph><paragraph></paragraph><paragraph>UPON TALKING TO JOSUE HOGAN, QUALITY REP OFFICE EMS WAS CALLED AND PATIENT WAS TAKEN TO [facility]. </paragraph><paragraph>DIMA ARNOLD OFFICE NOTIFIED OF SYMPTOMS,NO NEW ORDERS</paragraph> Encounters Start Date/Time End Date/Time Encounter Type Admission Type Attending [facility] Care Facility Care Department Encounter ID Discharge Date Discharge Status Discharge Condition Discharge Reason Percent Goals Met 2025-06-15 00:00:00 2025-08-13 00:00:00 Outpatient NEW ADMISSION MARTELL FRANKLIN [facility] [id number] 54.29
--- OUTSIDE RECORDS SUMMARY | 2025-08-12 18:00 | XMS_ITS | Clinical Summary ---
Author Organization Unknown Care Team Providers Care Orthopedic Brace Maker Name Role Phone DIMA ARNOLD, DEBBY Unavailable Unavailable NOEMI MCGEE, MARTELL Unavailable Unavailabl e Payers Payer Name Policy Type Policy Number Effective Date Expira tion Date MEDICARE - [place] - [facility] [id number] Problems Condition Name Condition Details Condition Category [...] MAY ACCEPT ORDERS FROM THE FOLLOWING PHYSICIANS: RENAL SOCIAL WORKER/TREATING PROVIDERS [code = HOME HEALTH AGENCY MAY ACCEPT ORDERS FROM THE FOLLOWING PHYSICIANS: RENAL SOCIAL WORKER/TREATING PROVIDERS] Future Scheduled Test SKILLED NU [...] MAINTAIN SITUATIONAL AWARENESS AND WILL NOTIFY CLINICAL CELL INSTALLER AND PHYSICIAN/PROVIDER WITH ANY CHANGE IN CONDITION. [code = SKILLED NURSE TO PERFORM ENVIRONMENTAL SAFETY RISK ASSESSMENT AND FALL RISK ASSESSMENT AND PROVIDE INSTRUCTION TO IMPLEMENT ENVIRONMENTAL SAFETY AND FALL PREVENTION STRATEGIES THROUGHOUT THE CERTIFICATION PERIOD. SKILLED NURSE WILL MAINTAIN SITUATIONAL AWARENESS AND WILL NOTIFY CLINICAL CELL INSTALLER AND PHYSICIAN/PROVIDER WITH ANY CHANGE IN [...] SIT BACK DOWN. BLOOD PRESSURE WAS ELEVATED MOLDING PRESS OPERATOR AND MD'S OFFICE WAS NOTIFIED AND [...] EQUALLY REACTIVE.</paragraph><paragraph></paragraph><paragraph>PATO AND REMINDED THEY CAN CALL [facility] FIRST WITH ANY ISSUES OR CONCERNS. THE REMINDED TO KEEP ALL FOLLOW UP APPOINTMENTS AND TO CONTINUE TAKING MEDICATIONS PRESCRIBED.</paragraph><paragraph></paragraph><paragraph>UPON TALKING TO JOSUE HOGAN, MOLDING PRESS OPERATOR OFFICE EMS WAS CALLED AND PATIENT WAS TAKEN TO [facility]. </paragraph><paragraph>DIMA ARNOLD OFFICE NOTIFIED OF SYMPTOMS,NO NEW ORDERS</paragraph> Encounters Start Date/Time End Date/Time Encounter Type Admission Type Attending [facility] Care Facility Care Department Encounter ID Discharge Date Discharge Status Discharge Condition Discharge Reason Percent Goals Met 2025-06-15 00:00:00 2025-08-13 00:00:00 Outpatient NEW ADMISSION MARTELL FRANKLIN [facility] [id number] 54.29
--- OUTSIDE RECORDS SUMMARY | 2025-08-12 18:00 | XMS_ITS | Clinical Summary ---
Author Organization Unknown Care Team Providers Care Biodiesel Plant Manager Name Role Phone DIMA ARNOLD, DEBBY Unavailable Unavailable NOEMI MCGEE, MARTELL Unavailable Unavailabl e Payers Payer Name Policy Type Policy Number Effective Date Expira tion Date MEDICARE - [place] - [facility] [id number] Problems Condition Name Condition Details Condition Category [...] MAY ACCEPT ORDERS FROM THE FOLLOWING PHYSICIANS: VACUUM PAN OPERATOR/TREATING PROVIDERS [code = HOME HEALTH AGENCY MAY ACCEPT ORDERS FROM THE FOLLOWING PHYSICIANS: VACUUM PAN OPERATOR/TREATING PROVIDERS] Future Scheduled Test SKILLED NU [...] MAINTAIN SITUATIONAL AWARENESS AND WILL NOTIFY CLINICAL TILTING HEAD BAND SAWYER AND PHYSICIAN/PROVIDER WITH ANY CHANGE IN CONDITION. [code = SKILLED NURSE TO PERFORM ENVIRONMENTAL SAFETY RISK ASSESSMENT AND FALL RISK ASSESSMENT AND PROVIDE INSTRUCTION TO IMPLEMENT ENVIRONMENTAL SAFETY AND FALL PREVENTION STRATEGIES THROUGHOUT THE CERTIFICATION PERIOD. SKILLED NURSE WILL MAINTAIN SITUATIONAL AWARENESS AND WILL NOTIFY CLINICAL TILTING HEAD BAND SAWYER AND PHYSICIAN/PROVIDER WITH ANY CHANGE IN CONDITION.] [...] SIT BACK DOWN. BLOOD PRESSURE WAS ELEVATED EXPORT SALES MANAGER AND MD'S OFFICE WAS NOTIFIED AND [...] EQUALLY REACTIVE.</paragraph><paragraph></paragraph><paragraph>PATO AND REMINDED THEY CAN CALL [facility] FIRST WITH ANY ISSUES OR CONCERNS. THE REMINDED TO KEEP ALL FOLLOW UP APPOINTMENTS AND TO CONTINUE TAKING MEDICATIONS PRESCRIBED.</paragraph><paragraph></paragraph><paragraph>UPON TALKING TO JOSUE HOGAN, EXPORT SALES MANAGER OFFICE EMS WAS CALLED AND PATIENT WAS TAKEN TO [facility]. </paragraph><paragraph>DIMA ARNOLD OFFICE NOTIFIED OF SYMPTOMS,NO NEW ORDERS</paragraph> Encounters Start Date/Time End Date/Time Encounter Type Admission Type Attending [facility] Care Facility Care Department Encounter ID Discharge Date Discharge Status Discharge Condition Discharge Reason Percent Goals Met 2025-06-15 00:00:00 2025-08-13 00:00:00 Outpatient NEW ADMISSION MARTELL FRANKLIN [facility] [id number] 54.29
--- OUTSIDE RECORDS SUMMARY | 2025-08-12 18:00 | XMS_ITS | Clinical Summary ---
Author Organization Unknown Care Team Providers Care Cut Out Worker Name Role Phone DIMA ARNOLD, DEBBY Unavailable Unavailable NOEMI MCGEE, MARTELL Unavailable Unavailabl e Payers Payer Name Policy Type Policy Number Effective Date Expira tion Date MEDICARE - [place] - [facility] [id number] Problems Condition Name Condition Details Condition Category [...] MAY ACCEPT ORDERS FROM THE FOLLOWING PHYSICIANS: TANK RIVETER/TREATING PROVIDERS [code = HOME HEALTH AGENCY MAY ACCEPT ORDERS FROM THE FOLLOWING PHYSICIANS: TANK RIVETER/TREATING PROVIDERS] Future Scheduled Test SKILLED NU RSE [...] SITUATIONAL AWARENESS AND WILL NOTIFY CLINICAL WAREHOUSE TECHNICIAN AND PHYSICIAN/PROVIDER WITH ANY CHANGE IN CONDITION. [code = SKILLED NURSE TO PERFORM ENVIRONMENTAL SAFETY RISK ASSESSMENT AND FALL RISK ASSESSMENT AND PROVIDE INSTRUCTION TO IMPLEMENT ENVIRONMENTAL SAFETY AND FALL PREVENTION STRATEGIES THROUGHOUT THE CERTIFICATION PERIOD. SKILLED NURSE WILL MAINTAIN SITUATIONAL AWARENESS AND WILL NOTIFY CLINICAL WAREHOUSE TECHNICIAN AND PHYSICIAN/PROVIDER WITH ANY CHANGE IN [...] SIT BACK DOWN. BLOOD PRESSURE WAS ELEVATED PROFESSOR OF OCEANOGRAPHY AND MD'S OFFICE WAS NOTIFIED AND AGREED [...] EQUALLY REACTIVE.</paragraph><paragraph></paragraph><paragraph>PATO AND REMINDED THEY CAN CALL [facility] FIRST WITH ANY ISSUES OR CONCERNS. THE REMINDED TO KEEP ALL FOLLOW UP APPOINTMENTS AND TO CONTINUE TAKING MEDICATIONS PRESCRIBED.</paragraph><paragraph></paragraph><paragraph>UPON TALKING TO JOSUE HOGAN, PROFESSOR OF OCEANOGRAPHY OFFICE EMS WAS CALLED AND PATIENT WAS TAKEN TO [facility]. </paragraph><paragraph>DIMA ARNOLD OFFICE NOTIFIED OF SYMPTOMS,NO NEW ORDERS</paragraph> Encounters Start Date/Time End Date/Time Encounter Type Admission Type Attending [facility] Care Department Encounter ID Discharge Date Discharge Status Discharge Condition Discharge Reason Percent Goals Met 2025-06-15 00:00:00 2025-08-13 00:00:00 Outpatient NEW ADMISSION MARTELL FRANKLIN [facility] [id number] 54.29
--- OUTSIDE RECORDS SUMMARY | 2025-08-12 18:00 | XMS_ITS | Clinical Summary ---
Author Organization Unknown Care Team Providers Care Embedded Systems Software Developer Name Role Phone DIMA ARNOLD, DEBBY Unavailable Unavailable NOEMI MCGEE, MARTELL Unavailable Unavailabl e Payers Payer Name Policy Type Policy Number Effective Date Expira tion Date MEDICARE - [place] - [facility] [id number] Problems Condition Name Condition Details Condition Category [...] ACCEPT ORDERS FROM THE FOLLOWING PHYSICIANS: MARINE TECHNICIAN/TREATING PROVIDERS [code = HOME HEALTH AGENCY MAY ACCEPT ORDERS FROM THE FOLLOWING PHYSICIANS: MARINE TECHNICIAN/TREATING PROVIDERS] Future Scheduled Test SKILLED NU [...] MAINTAIN SITUATIONAL AWARENESS AND WILL NOTIFY CLINICAL FIRE LIEUTENANT AND PHYSICIAN/PROVIDER WITH ANY CHANGE IN CONDITION. [code = SKILLED NURSE TO PERFORM ENVIRONMENTAL SAFETY RISK ASSESSMENT AND FALL RISK ASSESSMENT AND PROVIDE INSTRUCTION TO IMPLEMENT ENVIRONMENTAL SAFETY AND FALL PREVENTION STRATEGIES THROUGHOUT THE CERTIFICATION PERIOD. SKILLED NURSE WILL MAINTAIN SITUATIONAL AWARENESS AND WILL NOTIFY CLINICAL FIRE LIEUTENANT AND PHYSICIAN/PROVIDER WITH ANY CHANGE IN CONDITION.] [...] SIT BACK DOWN. BLOOD PRESSURE WAS ELEVATED LAPIDARY APPRENTICE AND MD'S OFFICE WAS NOTIFIED AND AGREED [...] EQUALLY REACTIVE.</paragraph><paragraph></paragraph><paragraph>PATO AND REMINDED THEY CAN CALL [facility] FIRST WITH ANY ISSUES OR CONCERNS. THE REMINDED TO KEEP ALL FOLLOW UP APPOINTMENTS AND TO CONTINUE TAKING MEDICATIONS PRESCRIBED.</paragraph><paragraph></paragraph><paragraph>UPON TALKING TO JOSUE HOGAN, LAPIDARY APPRENTICE OFFICE EMS WAS CALLED AND PATIENT WAS TAKEN TO [facility]. </paragraph><paragraph>DIMA ARNOLD OFFICE NOTIFIED OF SYMPTOMS,NO NEW ORDERS</paragraph> Encounters Start Date/Time End Date/Time Encounter Type Admission Type Attending [facility] Care Facility Care Department Encounter ID Discharge Date Discharge Status Discharge Condition Discharge Reason Percent Goals Met 2025-06-15 00:00:00 2025-08-13 00:00:00 Outpatient NEW ADMISSION MARTELL FRANKLIN [facility] [id number] 54.29
--- OUTSIDE RECORDS SUMMARY | 2025-08-12 18:00 | XMS_ITS | Clinical Summary ---
Author Organization Unknown Care Team Providers Care Learning Support Teacher Name Role Phone DIMA ARNOLD, DEBBY Unavailable Unavailable NOEMI MCGEE, MARTELL Unavailable Unavailabl e Payers Payer Name Policy Type Policy Number Effective Date Expira tion Date MEDICARE - [place] - [facility] [id number] Problems Condition Name Condition Details Condition Category [...] MAY ACCEPT ORDERS FROM THE FOLLOWING PHYSICIANS: PATIENT LIAISON/TREATING PROVIDERS [code = HOME HEALTH AGENCY MAY ACCEPT ORDERS FROM THE FOLLOWING PHYSICIANS: PATIENT LIAISON/TREATING PROVIDERS] Future Scheduled Test SKILLED NU RSE [...] MAINTAIN SITUATIONAL AWARENESS AND WILL NOTIFY CLINICAL PATENT LEATHER SORTER AND PHYSICIAN/PROVIDER WITH ANY CHANGE IN CONDITION. [code = SKILLED NURSE TO PERFORM ENVIRONMENTAL SAFETY RISK ASSESSMENT AND FALL RISK ASSESSMENT AND PROVIDE INSTRUCTION TO IMPLEMENT ENVIRONMENTAL SAFETY AND FALL PREVENTION STRATEGIES THROUGHOUT THE CERTIFICATION PERIOD. SKILLED NURSE WILL MAINTAIN SITUATIONAL AWARENESS AND WILL NOTIFY CLINICAL PATENT LEATHER SORTER AND PHYSICIAN/PROVIDER WITH ANY CHANGE IN CONDITION.] [...] CARE WILL BE ESTABLISHED THAT MEETS PATIENT'S GROUP HOME NEEDS AND INCLUDES PATIENT GOAL FOR [...] SIT BACK DOWN. BLOOD PRESSURE WAS ELEVATED CARDIOPULMONARY TECHNOLOGIST CHIEF AND MD'S OFFICE WAS NOTIFIED AND AGREED [...] EQUALLY REACTIVE.</paragraph><paragraph></paragraph><paragraph>PATO AND REMINDED THEY CAN CALL [facility] FIRST WITH ANY ISSUES OR CONCERNS. THE REMINDED TO KEEP ALL FOLLOW UP APPOINTMENTS AND TO CONTINUE TAKING MEDICATIONS PRESCRIBED.</paragraph><paragraph></paragraph><paragraph>UPON TALKING TO JOSUE HOGAN, CARDIOPULMONARY TECHNOLOGIST CHIEF OFFICE EMS WAS CALLED [facility] </paragraph><paragraph>DIMA ARNOLD OFFICE NOTIFIED OF SYMPTOMS,NO NEW ORDERS</paragraph> Encounters Start Date/Time End Date/Time Encounter Type Admission Type Attending [facility] Care Facility Care Department Encounter ID Discharge Date Discharge Status Discharge Condition Discharge Reason Percent Goals Met 2025-06-15 00:00:00 2025-08-13 00:00:00 Outpatient NEW ADMISSION MARTELL FRANKLIN [facility] [id number] 54.29
--- OUTSIDE RECORDS SUMMARY | 2025-08-12 18:00 | XMS_ITS | Clinical Summary ---
Author Organization Unknown Care Team Providers Care Best Worker Name Role Phone DIMA ARNOLD, DEBBY Unavailable Unavailable NOEMI MCGEE, MARTELL Unavailable Unavailabl e Payers Payer Name Policy Type Policy Number Effective Date Expira tion Date MEDICARE - [place] - [facility] [id number] Problems Condition Name Condition Details Condition Category [...] MAY ACCEPT ORDERS FROM THE FOLLOWING PHYSICIANS: COMBAT SYSTEMS OPERATOR/TREATING PROVIDERS [code = HOME HEALTH AGENCY MAY ACCEPT ORDERS FROM THE FOLLOWING PHYSICIANS: COMBAT SYSTEMS OPERATOR/TREATING PROVIDERS] Future Scheduled Test SKILLED NU [...] MAINTAIN SITUATIONAL AWARENESS AND WILL NOTIFY CLINICAL ROVING FRAME TENDER AND PHYSICIAN/PROVIDER WITH ANY CHANGE IN CONDITION. [code = SKILLED NURSE TO PERFORM ENVIRONMENTAL SAFETY RISK ASSESSMENT AND FALL RISK ASSESSMENT AND PROVIDE INSTRUCTION TO IMPLEMENT ENVIRONMENTAL SAFETY AND FALL PREVENTION STRATEGIES THROUGHOUT THE CERTIFICATION PERIOD. SKILLED NURSE WILL MAINTAIN SITUATIONAL AWARENESS AND WILL NOTIFY CLINICAL ROVING FRAME TENDER AND PHYSICIAN/PROVIDER WITH ANY CHANGE IN CONDITION.] [...] SIT BACK DOWN. BLOOD PRESSURE WAS ELEVATED FINANCE LECTURER AND MD'S OFFICE WAS NOTIFIED AND AGREED [...] EQUALLY REACTIVE.</paragraph><paragraph></paragraph><paragraph>PATO AND REMINDED THEY CAN CALL [facility] FIRST WITH ANY ISSUES OR CONCERNS. THE REMINDED TO KEEP ALL FOLLOW UP APPOINTMENTS AND TO CONTINUE TAKING MEDICATIONS PRESCRIBED.</paragraph><paragraph></paragraph><paragraph>UPON TALKING TO JOSUE HOGAN, FINANCE LECTURER OFFICE EMS WAS CALLED AND PATIENT WAS TAKEN TO [facility]. </paragraph><paragraph>DIMA ARNOLD OFFICE NOTIFIED OF SYMPTOMS,NO NEW ORDERS</paragraph> Encounters Start Date/Time End Date/Time Encounter Type Admission Type Attending [facility] Care Facility Care Department Encounter ID Discharge Date Discharge Status Discharge Condition Discharge Reason Percent Goals Met 2025-06-15 00:00:00 2025-08-13 00:00:00 Outpatient NEW ADMISSION MARTELL FRANKLIN [facility] [id number] 54.29
--- OUTSIDE RECORDS SUMMARY | 2025-08-12 18:00 | XMS_ITS | Clinical Summary ---
Author Organization Unknown Care Team Providers Care Shot Peen Operator Name Role Phone DIMA ARNOLD, DEBBY Unavailable Unavailable NOEMI MCGEE, MARTELL Unavailable Unavailabl e Payers Payer Name Policy Type Policy Number Effective Date Expira tion Date MEDICARE - [place] - [facility] [id number] Problems Condition Name Condition Details Condition Category [...] URINARY (TRACT) INFECTIONS Active 08-04 00:00: 00 [place] (CURRENT) USE OF ASPIRIN Active 08-04 00:00: [...] MAY ACCEPT ORDERS FROM THE FOLLOWING PHYSICIANS: BRICK AND TILE MAKING MACHINE OPERATOR/TREATING PROVIDERS [code = HOME HEALTH AGENCY MAY ACCEPT ORDERS FROM THE FOLLOWING PHYSICIANS: BRICK AND TILE MAKING MACHINE OPERATOR/TREATING PROVIDERS] Future Scheduled Test SKILLED [...] MAINTAIN SITUATIONAL AWARENESS AND WILL NOTIFY CLINICAL NUTRITION ASSOCIATE AND PHYSICIAN/PROVIDER WITH ANY CHANGE IN CONDITION. [code = SKILLED NURSE TO PERFORM ENVIRONMENTAL SAFETY RISK ASSESSMENT AND FALL RISK ASSESSMENT AND PROVIDE INSTRUCTION TO IMPLEMENT ENVIRONMENTAL SAFETY AND FALL PREVENTION STRATEGIES THROUGHOUT THE CERTIFICATION PERIOD. SKILLED NURSE WILL MAINTAIN SITUATIONAL AWARENESS AND WILL NOTIFY CLINICAL NUTRITION ASSOCIATE AND PHYSICIAN/PROVIDER WITH ANY CHANGE IN CONDITION.] [...] CARE WILL BE ESTABLISHED THAT MEETS PATIENT'S RESIDENTIAL NEEDS AND INCLUDES PATIENT GOAL FOR HOME [...] SIT BACK DOWN. BLOOD PRESSURE WAS ELEVATED ACCOUNTS RECEIVABLE SUPERVISOR AND MD'S OFFICE WAS NOTIFIED AND AGREED [...] EQUALLY REACTIVE.</paragraph><paragraph></paragraph><paragraph>PATO AND REMINDED THEY CAN CALL [facility] FIRST WITH ANY ISSUES OR CONCERNS. THE REMINDED TO KEEP ALL FOLLOW UP APPOINTMENTS AND TO CONTINUE TAKING MEDICATIONS PRESCRIBED.</paragraph><paragraph></paragraph><paragraph>UPON TALKING TO JOSUE HOGAN, ACCOUNTS RECEIVABLE SUPERVISOR OFFICE EMS WAS CALLED AND PATIENT WAS TAKEN TO [facility]. </paragraph><paragraph>DIMA ARNOLD OFFICE NOTIFIED OF SYMPTOMS,NO NEW ORDERS</paragraph> Encounters Start Date/Time End Date/Time Encounter Type Admission Type Attending [facility] Care Facility Care Department Encounter ID Discharge Date Discharge Status Discharge Condition Discharge Reason Percent Goals Met 2025-06-15 00:00:00 2025-08-13 00:00:00 Outpatient NEW ADMISSION MARTELL FRANKLIN [facility] [id number] 54.29
--- OUTSIDE RECORDS SUMMARY | 2025-08-12 18:00 | XMS_ITS | Clinical Summary ---
Author Organization Unknown Care Team Providers Care Water Plant Pump Operator Name Role Phone DIMA ARNOLD, DEBBY Unavailable Unavailable NOEMI MCGEE, MARTELL Unavailable Unavailabl e Payers Payer Name Policy Type Policy Number Effective Date Expira tion Date MEDICARE - [place] - [facility] [id number] Problems Condition Name Condition Details Condition Category [...] URINARY (TRACT) INFECTIONS Active 08-04 00:00: 00 [facility] (CURRENT) USE OF ASPIRIN Active 08-04 00:00: [...] MAY ACCEPT ORDERS FROM THE FOLLOWING PHYSICIANS: TEST OPERATOR/TREATING PROVIDERS [code = HOME HEALTH AGENCY MAY ACCEPT ORDERS FROM THE FOLLOWING PHYSICIANS: TEST OPERATOR/TREATING PROVIDERS] Future Scheduled Test SKILLED NU [...] MAINTAIN SITUATIONAL AWARENESS AND WILL NOTIFY CLINICAL WHEAT GROWER AND PHYSICIAN/PROVIDER WITH ANY CHANGE IN CONDITION. [code = SKILLED NURSE TO PERFORM ENVIRONMENTAL SAFETY RISK ASSESSMENT AND FALL RISK ASSESSMENT AND PROVIDE INSTRUCTION TO IMPLEMENT ENVIRONMENTAL SAFETY AND FALL PREVENTION STRATEGIES THROUGHOUT THE CERTIFICATION PERIOD. SKILLED NURSE WILL MAINTAIN SITUATIONAL AWARENESS AND WILL NOTIFY CLINICAL WHEAT GROWER AND PHYSICIAN/PROVIDER WITH ANY CHANGE IN CONDITION.] [...] SIT BACK DOWN. BLOOD PRESSURE WAS ELEVATED PIGMENT PUMPER AND MD'S OFFICE WAS NOTIFIED AND AGREED [...] REACTIVE.</paragraph><paragraph></paragraph><paragraph>PATO AND REMINDED THEY CAN CALL [facility] FIRST WITH ANY ISSUES OR CONCERNS. THE REMINDED TO KEEP ALL FOLLOW UP APPOINTMENTS AND TO CONTINUE TAKING MEDICATIONS PRESCRIBED.</paragraph><paragraph></paragraph><paragraph>UPON TALKING TO JOSUE HOGAN, PIGMENT PUMPER OFFICE EMS WAS CALLED AND PATIENT WAS TAKEN TO [facility]. </paragraph><paragraph>DIMA ARNOLD OFFICE NOTIFIED OF SYMPTOMS,NO NEW ORDERS</paragraph> Encounters Start Date/Time End Date/Time Encounter Type Admission Type Attending [facility] Care Facility Care Department Encounter ID Discharge Date Discharge Status Discharge Condition Discharge Reason Percent Goals Met 2025-06-15 00:00:00 2025-08-13 00:00:00 Outpatient NEW ADMISSION MARTELL FRANKLIN [facility] [id number] 54.29
--- OUTSIDE RECORDS SUMMARY | 2025-08-12 18:00 | XMS_ITS | Clinical Summary ---
Author Organization Unknown Care Team Providers Care Test Architect Name Role Phone DIMA ARNOLD, DEBBY Unavailable Unavailable NOEMI MCGEE, MARTELL Unavailable Unavailabl e Payers Payer Name Policy Type Policy Number Effective Date Expira tion Date MEDICARE - [place] - [facility] [id number] Problems Condition Name Condition Details Condition Category [...] MAY ACCEPT ORDERS FROM THE FOLLOWING PHYSICIANS: BALLET DANCER/TREATING PROVIDERS [code = HOME HEALTH AGENCY MAY ACCEPT ORDERS FROM THE FOLLOWING PHYSICIANS: BALLET DANCER/TREATING PROVIDERS] Future Scheduled Test SKILLED NU RSE [...] MAINTAIN SITUATIONAL AWARENESS AND WILL NOTIFY CLINICAL PROGRAM ATTENDANT AND PHYSICIAN/PROVIDER WITH ANY CHANGE IN CONDITION. [code = SKILLED NURSE TO PERFORM ENVIRONMENTAL SAFETY RISK ASSESSMENT AND FALL RISK ASSESSMENT AND PROVIDE INSTRUCTION TO IMPLEMENT ENVIRONMENTAL SAFETY AND FALL PREVENTION STRATEGIES THROUGHOUT THE CERTIFICATION PERIOD. SKILLED NURSE WILL MAINTAIN SITUATIONAL AWARENESS AND WILL NOTIFY CLINICAL PROGRAM ATTENDANT AND PHYSICIAN/PROVIDER WITH ANY CHANGE IN CONDITION.] [...] SIT BACK DOWN. BLOOD PRESSURE WAS ELEVATED PHOTOGRAPH INSPECTOR AND MD'S OFFICE WAS NOTIFIED AND [...] EQUALLY REACTIVE.</paragraph><paragraph></paragraph><paragraph>PATO AND REMINDED THEY CAN CALL [facility] FIRST WITH ANY ISSUES OR CONCERNS. THE REMINDED TO KEEP ALL FOLLOW UP APPOINTMENTS AND TO CONTINUE TAKING MEDICATIONS PRESCRIBED.</paragraph><paragraph></paragraph><paragraph>UPON TALKING TO JOSUE HOGAN, PHOTOGRAPH INSPECTOR OFFICE EMS WAS CALLED AND PATIENT WAS TAKEN TO [facility]. </paragraph><paragraph>DIMA ARNOLD OFFICE NOTIFIED OF SYMPTOMS,NO NEW ORDERS</paragraph> Encounters Start Date/Time End Date/Time Encounter Type Admission Type Attending [facility] Care Facility Care Department Encounter ID Discharge Date Discharge Status Discharge Condition Discharge Reason Percent Goals Met 2025-06-15 00:00:00 2025-08-13 00:00:00 Outpatient NEW ADMISSION MARTELL FRANKLIN [facility] [id number] 54.29
--- OUTSIDE RECORDS SUMMARY | 2025-08-12 18:00 | XMS_ITS | Clinical Summary ---
Author Organization Unknown Care Team Providers Care Special Service Representative Name Role Phone DIMA ARNOLD, DEBBY Unavailable Unavailable NOEMI MCGEE, MARTELL Unavailable Unavailabl e Payers Payer Name Policy Type Policy Number Effective Date Expira tion Date MEDICARE - [place] - [facility] [id number] Problems Condition Name Condition Details Condition Category [...] MAY ACCEPT ORDERS FROM THE FOLLOWING PHYSICIANS: WASHTUB WORKER HELPER/TREATING PROVIDERS [code = HOME HEALTH AGENCY MAY ACCEPT ORDERS FROM THE FOLLOWING PHYSICIANS: WASHTUB WORKER HELPER/TREATING PROVIDERS] Future Scheduled Test SKILLED NU [...] MAINTAIN SITUATIONAL AWARENESS AND WILL NOTIFY CLINICAL BUSINESS ANALYST MANAGER AND PHYSICIAN/PROVIDER WITH ANY CHANGE IN CONDITION. [code = SKILLED NURSE TO PERFORM ENVIRONMENTAL SAFETY RISK ASSESSMENT AND FALL RISK ASSESSMENT AND PROVIDE INSTRUCTION TO IMPLEMENT ENVIRONMENTAL SAFETY AND FALL PREVENTION STRATEGIES THROUGHOUT THE CERTIFICATION PERIOD. SKILLED NURSE WILL MAINTAIN SITUATIONAL AWARENESS AND WILL NOTIFY CLINICAL BUSINESS ANALYST MANAGER AND PHYSICIAN/PROVIDER WITH ANY CHANGE IN [...] SIT BACK DOWN. BLOOD PRESSURE WAS ELEVATED JEWELRY ESTIMATOR AND MD'S OFFICE WAS NOTIFIED AND AGREED [...] EQUALLY REACTIVE.</paragraph><paragraph></paragraph><paragraph>PATO AND REMINDED THEY CAN CALL [facility] FIRST WITH ANY ISSUES OR CONCERNS. THE REMINDED TO KEEP ALL FOLLOW UP APPOINTMENTS AND TO CONTINUE TAKING MEDICATIONS PRESCRIBED.</paragraph><paragraph></paragraph><paragraph>UPON TALKING TO JOSUE HOGAN, JEWELRY ESTIMATOR OFFICE EMS WAS CALLED AND PATIENT WAS TAKEN TO [facility]. </paragraph><paragraph>DIMA ARNOLD OFFICE NOTIFIED OF SYMPTOMS,NO NEW ORDERS</paragraph> Encounters Start Date/Time End Date/Time Encounter Type Admission Type Attending [facility] Care Facility Care Department Encounter ID Discharge Date Discharge Status Discharge Condition Discharge Reason Percent Goals Met 2025-06-15 00:00:00 2025-08-13 00:00:00 Outpatient NEW ADMISSION MARTELL FRANKLIN [facility] [id number] 54.29
--- OUTSIDE RECORDS SUMMARY | 2025-08-12 18:00 | XMS_ITS | Clinical Summary ---
Author Organization Unknown Care Team Providers Care Grove Superintendent Name Role Phone DIMA ARNOLD, DEBBY Unavailable Unavailable NOEMI MCGEE, MARTELL Unavailable Unavailabl e Payers Payer Name Policy Type Policy Number Effective Date Expira tion Date MEDICARE - [place] - [facility] [id number] Problems Condition Name Condition Details Condition Category [...] ORDERS FROM THE FOLLOWING PHYSICIANS: IMPORT EXPORT COORDINATOR/TREATING PROVIDERS [code = HOME HEALTH AGENCY MAY ACCEPT ORDERS FROM THE FOLLOWING PHYSICIANS: IMPORT EXPORT COORDINATOR/TREATING PROVIDERS] Future Scheduled Test SKILLED NU [...] MAINTAIN SITUATIONAL AWARENESS AND WILL NOTIFY CLINICAL DEPUTY GRAND JURY AND PHYSICIAN/PROVIDER WITH ANY CHANGE IN CONDITION. [code = SKILLED NURSE TO PERFORM ENVIRONMENTAL SAFETY RISK ASSESSMENT AND FALL RISK ASSESSMENT AND PROVIDE INSTRUCTION TO IMPLEMENT ENVIRONMENTAL SAFETY AND FALL PREVENTION STRATEGIES THROUGHOUT THE CERTIFICATION PERIOD. SKILLED NURSE WILL MAINTAIN SITUATIONAL AWARENESS AND WILL NOTIFY CLINICAL DEPUTY GRAND JURY AND PHYSICIAN/PROVIDER WITH ANY CHANGE IN CONDITION.] [...] SIT BACK DOWN. BLOOD PRESSURE WAS ELEVATED GREENS OR GROUNDS SUPERINTENDENT AND MD'S OFFICE WAS NOTIFIED AND AGREED [...] REACTIVE.</paragraph><paragraph></paragraph><paragraph>PATO AND REMINDED THEY CAN CALL [facility] FIRST WITH ANY ISSUES OR CONCERNS. THE REMINDED TO KEEP ALL FOLLOW UP APPOINTMENTS AND TO CONTINUE TAKING MEDICATIONS PRESCRIBED.</paragraph><paragraph></paragraph><paragraph>UPON TALKING TO JOSUE HOGAN, GREENS OR GROUNDS SUPERINTENDENT OFFICE EMS WAS CALLED AND PATIENT WAS TAKEN TO [facility]. </paragraph><paragraph>DIMA ARNOLD OFFICE NOTIFIED OF SYMPTOMS,NO NEW ORDERS</paragraph> Encounters Start Date/Time End Date/Time Encounter Type Admission Type Attending [facility] Care Facility Care Department Encounter ID Discharge Date Discharge Status Discharge Condition Discharge Reason Percent Goals Met 2025-06-15 00:00:00 2025-08-13 00:00:00 Outpatient NEW ADMISSION MARTELL FRANKLIN [facility] [id number] 54.29
--- OUTSIDE RECORDS SUMMARY | 2025-08-12 18:00 | XMS_ITS | Clinical Summary ---
Author Organization Unknown Care Team Providers Care Equipment Service Lead Name Role Phone DIMA ARNOLD, DEBBY Unavailable Unavailable NOEMI MCGEE, MARTELL Unavailable Unavailabl e Payers Payer Name Policy Type Policy Number Effective Date Expira tion Date MEDICARE - [place] - [facility] [id number] Problems Condition Name Condition Details Condition Category [...] MAY ACCEPT ORDERS FROM THE FOLLOWING PHYSICIANS: SOLUTIONS ARCHITECT CONSULTANT/TREATING PROVIDERS [code = HOME HEALTH AGENCY MAY ACCEPT ORDERS FROM THE FOLLOWING PHYSICIANS: SOLUTIONS ARCHITECT CONSULTANT/TREATING PROVIDERS] Future Scheduled Test SKILLED NU RSE [...] MAINTAIN SITUATIONAL AWARENESS AND WILL NOTIFY CLINICAL RAILROAD BRAKE REPAIRER AND PHYSICIAN/PROVIDER WITH ANY CHANGE IN CONDITION. [code = SKILLED NURSE TO PERFORM ENVIRONMENTAL SAFETY RISK ASSESSMENT AND FALL RISK ASSESSMENT AND PROVIDE INSTRUCTION TO IMPLEMENT ENVIRONMENTAL SAFETY AND FALL PREVENTION STRATEGIES THROUGHOUT THE CERTIFICATION PERIOD. SKILLED NURSE WILL MAINTAIN SITUATIONAL AWARENESS AND WILL NOTIFY CLINICAL RAILROAD BRAKE REPAIRER AND PHYSICIAN/PROVIDER WITH ANY CHANGE IN CONDITION.] [...] SIT BACK DOWN. BLOOD PRESSURE WAS ELEVATED SENSOR SPECIALIST AND MD'S OFFICE WAS NOTIFIED AND [...] TAKING MEDICATIONS PRESCRIBED.</paragraph><paragraph></paragraph><paragraph>UPON TALKING TO JOSUE HOGAN, SENSOR SPECIALIST OFFICE EMS WAS CALLED AND PATIENT WAS TAKEN TO [facility]. </paragraph><paragraph>DIMA ARNOLD OFFICE NOTIFIED OF SYMPTOMS,NO NEW ORDERS</paragraph> Encounters Start Date/Time End Date/Time Encounter Type Admission Type Attending [facility] Care Facility Care Department Encounter ID Discharge Date Discharge Status Discharge Condition Discharge Reason Percent Goals Met 2025-06-15 00:00:00 2025-08-13 00:00:00 Outpatient NEW ADMISSION MARTELL FRANKLIN [facility] [id number] 54.29
--- OUTSIDE RECORDS SUMMARY | 2025-08-12 18:00 | XMS_ITS | Clinical Summary ---
Author Organization Unknown Care Team Providers Care Helicopter Repairer Name Role Phone DIMA ARNOLD, DEBBY Unavailable Unavailable NOEMI MCGEE, MARTELL Unavailable Unavailabl e Payers Payer Name Policy Type Policy Number Effective Date Expira tion Date MEDICARE - [place] - [facility] [id number] Problems Condition Name Condition Details Condition Category [...] MAY ACCEPT ORDERS FROM THE FOLLOWING PHYSICIANS: CHILD CARE COOK/TREATING PROVIDERS [code = HOME HEALTH AGENCY MAY ACCEPT ORDERS FROM THE FOLLOWING PHYSICIANS: CHILD CARE COOK/TREATING PROVIDERS] Future Scheduled Test SKILLED NU RSE [...] MAINTAIN SITUATIONAL AWARENESS AND WILL NOTIFY CLINICAL SOLO TRUCK DRIVER AND PHYSICIAN/PROVIDER WITH ANY CHANGE IN CONDITION. [code = SKILLED NURSE TO PERFORM ENVIRONMENTAL SAFETY RISK ASSESSMENT AND FALL RISK ASSESSMENT AND PROVIDE INSTRUCTION TO IMPLEMENT ENVIRONMENTAL SAFETY AND FALL PREVENTION STRATEGIES THROUGHOUT THE CERTIFICATION PERIOD. SKILLED NURSE WILL MAINTAIN SITUATIONAL AWARENESS AND WILL NOTIFY CLINICAL SOLO TRUCK DRIVER AND PHYSICIAN/PROVIDER WITH ANY CHANGE IN CONDITION.] [...] SIT BACK DOWN. BLOOD PRESSURE WAS ELEVATED LACQUER PIN PRESS OPERATOR AND MD'S OFFICE WAS NOTIFIED [...] EQUALLY REACTIVE.</paragraph><paragraph></paragraph><paragraph>PATO AND REMINDED THEY CAN CALL [facility] FIRST WITH ANY ISSUES OR CONCERNS. THE REMINDED TO KEEP ALL FOLLOW UP APPOINTMENTS AND TO CONTINUE TAKING MEDICATIONS PRESCRIBED.</paragraph><paragraph></paragraph><paragraph>UPON TALKING TO JOSUE HOGAN, LACQUER PIN PRESS OPERATOR OFFICE EMS WAS CALLED AND PATIENT WAS TAKEN TO [facility]. </paragraph><paragraph>DIMA ARNOLD OFFICE NOTIFIED OF SYMPTOMS,NO NEW ORDERS</paragraph> Encounters Start Date/Time End Date/Time Encounter Type Admission Type Attending [facility] Care Facility Care Department Encounter ID Discharge Date Discharge Status Discharge Condition Discharge Reason Percent Goals Met 2025-06-15 00:00:00 2025-08-13 00:00:00 Outpatient NEW ADMISSION MARTELL FRANKLIN [facility] [id number] 54.29
--- OUTSIDE RECORDS SUMMARY | 2025-08-12 18:00 | XMS_ITS | Clinical Summary ---
Author Organization Unknown Care Team Providers Care Clinical Trial Specialist Name Role Phone DIMA ARNOLD, DEBBY Unavailable Unavailable NOEMI MCGEE, MARTELL Unavailable Unavailabl e Payers Payer Name Policy Type Policy Number Effective Date Expira tion Date MEDICARE - [place] [facility] [id number] Problems Condition Name Condition Details Condition Category [...] MAY ACCEPT ORDERS FROM THE FOLLOWING PHYSICIANS: CLINICAL REHABILITATION AIDE/TREATING PROVIDERS [code = HOME HEALTH AGENCY MAY ACCEPT ORDERS FROM THE FOLLOWING PHYSICIANS: CLINICAL REHABILITATION AIDE/TREATING PROVIDERS] Future Scheduled Test SKILLED NU RSE [...] MAINTAIN SITUATIONAL AWARENESS AND WILL NOTIFY CLINICAL INTERVENTION ANALYST AND PHYSICIAN/PROVIDER WITH ANY CHANGE IN CONDITION. [code = SKILLED NURSE TO PERFORM ENVIRONMENTAL SAFETY RISK ASSESSMENT AND FALL RISK ASSESSMENT AND PROVIDE INSTRUCTION TO IMPLEMENT ENVIRONMENTAL SAFETY AND FALL PREVENTION STRATEGIES THROUGHOUT THE CERTIFICATION PERIOD. SKILLED NURSE WILL MAINTAIN SITUATIONAL AWARENESS AND WILL NOTIFY CLINICAL INTERVENTION ANALYST AND PHYSICIAN/PROVIDER WITH ANY CHANGE IN CONDITION.] [...] SIT BACK DOWN. BLOOD PRESSURE WAS ELEVATED HORIZONTAL BORING MILL OPERATOR AND MD'S OFFICE WAS NOTIFIED AND [...] EQUALLY REACTIVE.</paragraph><paragraph></paragraph><paragraph>PATO AND REMINDED THEY CAN CALL [facility] FIRST WITH ANY ISSUES OR CONCERNS. THE REMINDED TO KEEP ALL FOLLOW UP APPOINTMENTS AND TO CONTINUE TAKING MEDICATIONS PRESCRIBED.</paragraph><paragraph></paragraph><paragraph>UPON TALKING TO JOSUE HOGAN, HORIZONTAL BORING MILL OPERATOR OFFICE EMS WAS CALLED AND PATIENT WAS TAKEN TO [facility]. </paragraph><paragraph>DIMA ARNOLD OFFICE NOTIFIED OF SYMPTOMS,NO NEW ORDERS</paragraph> Encounters Start Date/Time End Date/Time Encounter Type Admission Type Attending [facility] Care Facility Care Department Encounter ID Discharge Date Discharge Status Discharge Condition Discharge Reason Percent Goals Met 2025-06-15 00:00:00 2025-08-13 00:00:00 Outpatient NEW ADMISSION MARTELL FRANK[facility] [id number] 54.29
--- OUTSIDE RECORDS SUMMARY | 2025-08-12 18:00 | XMS_ITS | Clinical Summary ---
Author Organization Unknown Care Team Providers Care Communications And Signals Supervisor Name Role Phone DIMA ARNOLD, DEBBY Unavailable Unavailable NOEMI MCGEE, MARTELL Unavailable Unavailabl e Payers Payer Name Policy Type Policy Number Effective Date Expira tion Date MEDICARE - [place] - [facility] [id number] Problems Condition Name Condition Details Condition Category [...] MAY ACCEPT ORDERS FROM THE FOLLOWING PHYSICIANS: CHASSIS DRIVER/TREATING PROVIDERS [code = HOME HEALTH AGENCY MAY ACCEPT ORDERS FROM THE FOLLOWING PHYSICIANS: CHASSIS DRIVER/TREATING PROVIDERS] Future Scheduled Test SKILLED NU RSE [...] MAINTAIN SITUATIONAL AWARENESS AND WILL NOTIFY CLINICAL SHEET METAL HELPER AND PHYSICIAN/PROVIDER WITH ANY CHANGE IN CONDITION. [code = SKILLED NURSE TO PERFORM ENVIRONMENTAL SAFETY RISK ASSESSMENT AND FALL RISK ASSESSMENT AND PROVIDE INSTRUCTION TO IMPLEMENT ENVIRONMENTAL SAFETY AND FALL PREVENTION STRATEGIES THROUGHOUT THE CERTIFICATION PERIOD. SKILLED NURSE WILL MAINTAIN SITUATIONAL AWARENESS AND WILL NOTIFY CLINICAL SHEET METAL HELPER AND PHYSICIAN/PROVIDER WITH ANY CHANGE IN [...] SIT BACK DOWN. BLOOD PRESSURE WAS ELEVATED BOWLING ALLEY OPERATOR AND MD'S OFFICE WAS NOTIFIED AND [...] EQUALLY REACTIVE.</paragraph><paragraph></paragraph><paragraph>PATO AND REMINDED THEY CAN CALL [facility] FIRST WITH ANY ISSUES OR CONCERNS. THE REMINDED TO KEEP ALL FOLLOW UP APPOINTMENTS AND TO CONTINUE TAKING MEDICATIONS PRESCRIBED.</paragraph><paragraph></paragraph><paragraph>UPON TALKING TO JOSUE HOGAN, BOWLING ALLEY OPERATOR OFFICE EMS WAS CALLED AND PATIENT WAS TAKEN TO [facility]. </paragraph><paragraph>DIMA ARNOLD OFFICE NOTIFIED OF SYMPTOMS,NO NEW ORDERS</paragraph> Encounters Start Date/Time End Date/Time Encounter Type Admission Type Attending [facility] Care Facility Care Department Encounter ID Discharge Date Discharge Status Discharge Condition Discharge Reason Percent Goals Met 2025-06-15 00:00:00 2025-08-13 00:00:00 Outpatient NEW ADMISSION MARTELL FRANKLIN [facility] [id number] 54.29
--- OUTSIDE RECORDS SUMMARY | 2025-08-12 18:00 | XMS_ITS | Clinical Summary ---
Author Organization Unknown Care Team Providers Care Song Lyricist Name Role Phone DIMA ARNOLD, DEBBY Unavailable Unavailable NOEMI MCGEE, MARTELL Unavailable Unavailabl e Payers Payer Name Policy Type Policy Number Effective Date Expira tion Date MEDICARE - [place] - [facility] [place] [id number] Problems Condition Name Condition Details Condition Category [...] MAY ACCEPT ORDERS FROM THE FOLLOWING PHYSICIANS: FUR DRY CLEANER HAND/TREATING PROVIDERS [code = HOME HEALTH AGENCY MAY ACCEPT ORDERS FROM THE FOLLOWING PHYSICIANS: FUR DRY CLEANER HAND/TREATING PROVIDERS] Future Scheduled Test SKILLED NU RSE [...] MAINTAIN SITUATIONAL AWARENESS AND WILL NOTIFY CLINICAL PREPARER SAMPLES AND REPAIRS AND PHYSICIAN/PROVIDER WITH ANY CHANGE IN CONDITION. [code = SKILLED NURSE TO PERFORM ENVIRONMENTAL SAFETY RISK ASSESSMENT AND FALL RISK ASSESSMENT AND PROVIDE INSTRUCTION TO IMPLEMENT ENVIRONMENTAL SAFETY AND FALL PREVENTION STRATEGIES THROUGHOUT THE CERTIFICATION PERIOD. SKILLED NURSE WILL MAINTAIN SITUATIONAL AWARENESS AND WILL NOTIFY CLINICAL PREPARER SAMPLES AND REPAIRS AND PHYSICIAN/PROVIDER WITH ANY CHANGE IN CONDITION.] [...] CARE WILL BE ESTABLISHED THAT MEETS PATIENT'S [facility] NEEDS AND INCLUDES PATIENT GOAL FOR HOME [...] SIT BACK DOWN. BLOOD PRESSURE WAS ELEVATED BUSGIRL AND MD'S OFFICE WAS NOTIFIED AND AGREED [...] AND REMINDED THEY CAN CALL [facility] FIRST WITH ANY ISSUES OR CONCERNS. THE REMINDED TO KEEP ALL FOLLOW UP APPOINTMENTS AND TO CONTINUE TAKING MEDICATIONS PRESCRIBED.</paragraph><paragraph></paragraph><paragraph>UPON TALKING TO JOSUE HOGAN, BUSGIRL OFFICE EMS WAS CALLED AND PATIENT WAS TAKEN TO [facility]. </paragraph><paragraph>DIMA ARNOLD OFFICE NOTIFIED OF SYMPTOMS,NO NEW ORDERS</paragraph> Encounters Start Date/Time End Date/Time Encounter Type Admission Type Attending [facility] Care Facility Care Department Encounter ID Discharge Date Discharge Status Discharge Condition Discharge Reason Percent Goals Met 2025-06-15 00:00:00 2025-08-13 00:00:00 Outpatient NEW ADMISSION MARTELL FRANKLIN [facility] [id number] 54.29
--- OUTSIDE RECORDS SUMMARY | 2025-08-12 18:00 | XMS_ITS | Clinical Summary ---
Author Organization Unknown Care Team Providers Care Remote Encoding Operations Supervisor Name Role Phone DIMA ARNOLD, DEBBY Unavailable Unavailable NOEMI MCGEE, MARTELL Unavailable Unavailabl e Payers Payer Name Policy Type Policy Number Effective Date Expira tion Date MEDICARE - [place] - [facility] [id number] Problems Condition Name Condition Details Condition Category [...] MAY ACCEPT ORDERS FROM THE FOLLOWING PHYSICIANS: DIRECTOR OF CATERING/TREATING PROVIDERS [code = HOME HEALTH AGENCY MAY ACCEPT ORDERS FROM THE FOLLOWING PHYSICIANS: DIRECTOR OF CATERING/TREATING PROVIDERS] Future Scheduled Test SKILLED NU RSE [...] MAINTAIN SITUATIONAL AWARENESS AND WILL NOTIFY CLINICAL GOLF CADDY AND PHYSICIAN/PROVIDER WITH ANY CHANGE IN CONDITION. [code = SKILLED NURSE TO PERFORM ENVIRONMENTAL SAFETY RISK ASSESSMENT AND FALL RISK ASSESSMENT AND PROVIDE INSTRUCTION TO IMPLEMENT ENVIRONMENTAL SAFETY AND FALL PREVENTION STRATEGIES THROUGHOUT THE CERTIFICATION PERIOD. SKILLED NURSE WILL MAINTAIN SITUATIONAL AWARENESS AND WILL NOTIFY CLINICAL GOLF CADDY AND PHYSICIAN/PROVIDER WITH ANY CHANGE IN CONDITION.] [...] CARE WILL BE ESTABLISHED THAT MEETS PATIENT'S [place] NEEDS AND INCLUDES PATIENT GOAL FOR HOME [...] SIT BACK DOWN. BLOOD PRESSURE WAS ELEVATED SCHEDULING REPRESENTATIVE AND MD'S OFFICE WAS NOTIFIED AND [...] TAKING MEDICATIONS PRESCRIBED.</paragraph><paragraph></paragraph><paragraph>UPON TALKING TO JOSUE HOGAN, SCHEDULING REPRESENTATIVE OFFICE EMS WAS CALLED AND PATIENT WAS TAKEN TO [facility]. </paragraph><paragraph>DIMA ARNOLD OFFICE NOTIFIED OF SYMPTOMS,NO NEW ORDERS</paragraph> Encounters Start Date/Time End Date/Time Encounter Type Admission Type Attending [facility] Care Facility Care Department Encounter ID Discharge Date Discharge Status Discharge Condition Discharge Reason Percent Goals Met 2025-06-15 00:00:00 2025-08-13 00:00:00 Outpatient NEW ADMISSION MARTELL FRANKLIN [facility] [id number] 54.29
--- OUTSIDE RECORDS SUMMARY | 2025-08-12 18:00 | XMS_ITS | Clinical Summary ---
Author Organization Unknown Care Team Providers Care Coordinator Of Genetic Services Name Role Phone DIMA ARNOLD, DEBBY Unavailable Unavailable NOEMI MCGEE, MARTELL Unavailable Unavailabl e Payers Payer Name Policy Type Policy Number Effective Date Expira tion Date MEDICARE - [place] - [facility] [id number] Problems Condition Name Condition Details Condition Category [...] MAY ACCEPT ORDERS FROM THE FOLLOWING PHYSICIANS: PSYCHIATRIC NURSE PRACTITIONER/TREATING PROVIDERS [code = HOME HEALTH AGENCY MAY ACCEPT ORDERS FROM THE FOLLOWING PHYSICIANS: PSYCHIATRIC NURSE PRACTITIONER/TREATING PROVIDERS] Future Scheduled Test SKILLED NU RSE [...] MAINTAIN SITUATIONAL AWARENESS AND WILL NOTIFY CLINICAL EATING DISORDER SPECIALIST AND PHYSICIAN/PROVIDER WITH ANY CHANGE IN CONDITION. [code = SKILLED NURSE TO PERFORM ENVIRONMENTAL SAFETY RISK ASSESSMENT AND FALL RISK ASSESSMENT AND PROVIDE INSTRUCTION TO IMPLEMENT ENVIRONMENTAL SAFETY AND FALL PREVENTION STRATEGIES THROUGHOUT THE CERTIFICATION PERIOD. SKILLED NURSE WILL MAINTAIN SITUATIONAL AWARENESS AND WILL NOTIFY CLINICAL EATING DISORDER SPECIALIST AND PHYSICIAN/PROVIDER WITH ANY CHANGE IN [...] SIT BACK DOWN. BLOOD PRESSURE WAS ELEVATED LABORATORY SUPERVISOR AND MD'S OFFICE WAS NOTIFIED AND [...] TAKING MEDICATIONS PRESCRIBED.</paragraph><paragraph></paragraph><paragraph>UPON TALKING TO JOSUE HOGAN, LABORATORY SUPERVISOR OFFICE EMS WAS CALLED AND PATIENT WAS TAKEN TO [facility]. </paragraph><paragraph>DIMA ARNOLD OFFICE NOTIFIED OF SYMPTOMS,NO NEW ORDERS</paragraph> Encounters Start Date/Time End Date/Time Encounter Type Admission Type Attending [facility] Care Facility Care Department Encounter ID Discharge Date Discharge Status Discharge Condition Discharge Reason Percent Goals Met 2025-06-15 00:00:00 2025-08-13 00:00:00 Outpatient NEW ADMISSION MARTELL FRANKLIN [facility] [id number] 54.29
--- OUTSIDE RECORDS SUMMARY | 2025-08-12 18:00 | XMS_ITS | Clinical Summary ---
Author Organization Unknown Care Team Providers Care Disassembler Product Name Role Phone DIMA ARNOLD, DEBBY Unavailable Unavailable NEOMI MCGEE, MARTELL Unavailable Unavailabl e Payers Payer Name Policy Type Policy Number Effective Date Expira tion Date MEDICARE - [place] - [facility] [id number] Problems Condition Name Condition Details Condition Category [...] MAY ACCEPT ORDERS FROM THE FOLLOWING PHYSICIANS: PLASTIC TOP ASSEMBLER/TREATING PROVIDERS [code = HOME HEALTH AGENCY MAY ACCEPT ORDERS FROM THE FOLLOWING PHYSICIANS: PLASTIC TOP ASSEMBLER/TREATING PROVIDERS] Future Scheduled Test SKILLED NU RSE [...] MAINTAIN SITUATIONAL AWARENESS AND WILL NOTIFY CLINICAL BRIEFCASE SEWER AND PHYSICIAN/PROVIDER WITH ANY CHANGE IN CONDITION. [code = SKILLED NURSE TO PERFORM ENVIRONMENTAL SAFETY RISK ASSESSMENT AND FALL RISK ASSESSMENT AND PROVIDE INSTRUCTION TO IMPLEMENT ENVIRONMENTAL SAFETY AND FALL PREVENTION STRATEGIES THROUGHOUT THE CERTIFICATION PERIOD. SKILLED NURSE WILL MAINTAIN SITUATIONAL AWARENESS AND WILL NOTIFY CLINICAL BRIEFCASE SEWER AND PHYSICIAN/PROVIDER WITH ANY CHANGE IN CONDITION.] [...] SIT BACK DOWN. BLOOD PRESSURE WAS ELEVATED CIGARETTE MAKING MACHINE HOPPER FEEDER AND MD'S OFFICE WAS NOTIFIED AND AGREED [...] CONTINUE TAKING MEDICATIONS PRESCRIBED.</paragraph><paragraph></paragraph><paragraph>UPON TALKING TO JOSUE HOAGN, CIGARETTE MAKING MACHINE HOPPER FEEDER OFFICE EMS WAS CALLED AND PATIENT WAS [...] NEW ADMISSION MARTELL FRANKLIN [facility] [id number] 54.29
--- OUTSIDE RECORDS SUMMARY | 2025-08-12 18:00 | XMS_ITS | Clinical Summary ---
Author Organization Unknown Care Team Providers Care Inter Fold Roll Cutter Name Role Phone DIMA ARNOLD, DEBBY Unavailable Unavailable NOEMI MCGEE, MARTELL Unavailable Unavailabl e Payers Payer Name Policy Type Policy Number Effective Date Expira tion Date MEDICARE - [place] - [facility] [id number] Problems Condition Name Condition Details Condition Category [...] MAY ACCEPT ORDERS FROM THE FOLLOWING PHYSICIANS: DRY KILN OPERATOR/TREATING PROVIDERS [code = HOME HEALTH AGENCY MAY ACCEPT ORDERS FROM THE FOLLOWING PHYSICIANS: DRY KILN OPERATOR/TREATING PROVIDERS] Future Scheduled Test SKILLED NU [...] MAINTAIN SITUATIONAL AWARENESS AND WILL NOTIFY CLINICAL WILDLIFE ECOLOGY PROFESSOR AND PHYSICIAN/PROVIDER WITH ANY CHANGE IN CONDITION. [code = SKILLED NURSE TO PERFORM ENVIRONMENTAL SAFETY RISK ASSESSMENT AND FALL RISK ASSESSMENT AND PROVIDE INSTRUCTION TO IMPLEMENT ENVIRONMENTAL SAFETY AND FALL PREVENTION STRATEGIES THROUGHOUT THE CERTIFICATION PERIOD. SKILLED NURSE WILL MAINTAIN SITUATIONAL AWARENESS AND WILL NOTIFY CLINICAL WILDLIFE ECOLOGY PROFESSOR AND PHYSICIAN/PROVIDER WITH ANY CHANGE IN CONDITION.] [...] SIT BACK DOWN. BLOOD PRESSURE WAS ELEVATED BOW MAKER AND MD'S OFFICE WAS NOTIFIED AND AGREED [...] TAKING MEDICATIONS PRESCRIBED.</paragraph><paragraph></paragraph><paragraph>UPON TALKING TO JOSUE HOGAN, BOW MAKER OFFICE EMS WAS CALLED AND PATIENT WAS TAKEN TO [facility]. </paragraph><paragraph>DIMA ARNOLD OFFICE NOTIFIED OF SYMPTOMS,NO NEW ORDERS</paragraph> Encounters Start Date/Time End Date/Time Encounter Type Admission Type Attending [facility] Care Facility Care Department Encounter ID Discharge Date Discharge Status Discharge Condition Discharge Reason Percent Goals Met 2025-06-15 00:00:00 2025-08-13 00:00:00 Outpatient NEW ADMISSION MARTELL FRANKLIN [facility] [id number] 54.29
--- OUTSIDE RECORDS SUMMARY | 2025-08-12 18:00 | XMS_ITS | Clinical Summary ---
Author Organization Unknown Care Team Providers Care Hide Cleaner Name Role Phone DIMA ARNOLD, DEBBY Unavailable Unavailable NOEMI MCGEE, MARTELL Unavailable Unavailabl e Payers Payer Name Policy Type Policy Number Effective Date Expira tion Date MEDICARE - [place] - [facility] [id number] Problems Condition Name Condition Details Condition Category [...] MAY ACCEPT ORDERS FROM THE FOLLOWING PHYSICIANS: PRESIDENTIAL HELICOPTER CREW CHIEF/TREATING PROVIDERS [code = HOME HEALTH AGENCY MAY ACCEPT ORDERS FROM THE FOLLOWING PHYSICIANS: PRESIDENTIAL HELICOPTER CREW CHIEF/TREATING PROVIDERS] Future Scheduled Test SKILLED NU RSE [...] MAINTAIN SITUATIONAL AWARENESS AND WILL NOTIFY CLINICAL BROADCAST CHIEF ENGINEER AND PHYSICIAN/PROVIDER WITH ANY CHANGE IN CONDITION. [code = SKILLED NURSE TO PERFORM ENVIRONMENTAL SAFETY RISK ASSESSMENT AND FALL RISK ASSESSMENT AND PROVIDE INSTRUCTION TO IMPLEMENT ENVIRONMENTAL SAFETY AND FALL PREVENTION STRATEGIES THROUGHOUT THE CERTIFICATION PERIOD. SKILLED NURSE WILL MAINTAIN SITUATIONAL AWARENESS AND WILL NOTIFY CLINICAL BROADCAST CHIEF ENGINEER AND PHYSICIAN/PROVIDER WITH ANY CHANGE IN [...] SIT BACK DOWN. BLOOD PRESSURE WAS ELEVATED CASINO CONTROLLER AND MD'S OFFICE WAS NOTIFIED AND AGREED [...] AND REMINDED THEY CAN CALL [facility] FIRST WITH ANY ISSUES OR CONCERNS. THE REMINDED TO KEEP ALL FOLLOW UP APPOINTMENTS AND TO CONTINUE TAKING MEDICATIONS PRESCRIBED.</paragraph><paragraph></paragraph><paragraph>UPON TALKING TO JOSUE HOGAN, CASINO CONTROLLER OFFICE EMS WAS CALLED AND PATIENT WAS TAKEN TO [facility]. </paragraph><paragraph>DIMA ARNOLD OFFICE NOTIFIED OF SYMPTOMS,NO NEW ORDERS</paragraph> Encounters Start Date/Time End Date/Time Encounter Type Admission Type Attending [facility] Care Facility Care Department Encounter ID Discharge Date Discharge Status Discharge Condition Discharge Reason Percent Goals Met 2025-06-15 00:00:00 2025-08-13 00:00:00 Outpatient NEW ADMISSION MARTELL FRANKLIN [facility] [id number] 54.29
--- OUTSIDE RECORDS SUMMARY | 2025-08-12 18:00 | XMS_ITS | Clinical Summary ---
Author Organization Unknown Care Team Providers Care Leasing Associate Name Role Phone DIMA ARNOLD, DEBBY Unavailable Unavailable NOEMI MCGEE, MARTELL Unavailable Unavailabl e Payers Payer Name Policy Type Policy Number Effective Date Expira tion Date MEDICARE - [id number] - [facility] [id number] Problems Condition Name Condition Details Condition Category [...] MAY ACCEPT ORDERS FROM THE FOLLOWING PHYSICIANS: CAD OPERATOR/TREATING PROVIDERS [code = HOME HEALTH AGENCY MAY ACCEPT ORDERS FROM THE FOLLOWING PHYSICIANS: CAD OPERATOR/TREATING PROVIDERS] Future Scheduled Test SKILLED NU [...] MAINTAIN SITUATIONAL AWARENESS AND WILL NOTIFY CLINICAL FISHING VESSEL MATE AND PHYSICIAN/PROVIDER WITH ANY CHANGE IN CONDITION. [code = SKILLED NURSE TO PERFORM ENVIRONMENTAL SAFETY RISK ASSESSMENT AND FALL RISK ASSESSMENT AND PROVIDE INSTRUCTION TO IMPLEMENT ENVIRONMENTAL SAFETY AND FALL PREVENTION STRATEGIES THROUGHOUT THE CERTIFICATION PERIOD. SKILLED NURSE WILL MAINTAIN SITUATIONAL AWARENESS AND WILL NOTIFY CLINICAL FISHING VESSEL MATE AND PHYSICIAN/PROVIDER WITH ANY CHANGE IN CONDITION.] [...] SIT BACK DOWN. BLOOD PRESSURE WAS ELEVATED ASPHALT SPREADER AND MD'S OFFICE WAS NOTIFIED AND AGREED [...] EQUALLY REACTIVE.</paragraph><paragraph></paragraph><paragraph>PATO AND REMINDED THEY CAN CALL [facility] FIRST WITH ANY ISSUES OR CONCERNS. THE REMINDED TO KEEP ALL FOLLOW UP APPOINTMENTS AND TO CONTINUE TAKING MEDICATIONS PRESCRIBED.</paragraph><paragraph></paragraph><paragraph>UPON TALKING TO JOSUE HOGAN, ASPHALT SPREADER OFFICE EMS WAS CALLED AND PATIENT WAS TAKEN TO [facility]. </paragraph><paragraph>DIMA ARNOLD OFFICE NOTIFIED OF SYMPTOMS,NO NEW ORDERS</paragraph> Encounters Start Date/Time End Date/Time Encounter Type Admission Type Attending [facility] Care Facility Care Department Encounter ID Discharge Date Discharge Status Discharge Condition Discharge Reason Percent Goals Met 2025-06-15 00:00:00 2025-08-13 00:00:00 Outpatient NEW ADMISSION MARTELL FRANKLIN [facility] [id number] 54.29
--- OUTSIDE RECORDS SUMMARY | 2025-08-12 18:00 | XMS_ITS | Clinical Summary ---
Author Organization Unknown Care Team Providers Care Operating System Programmer Name Role Phone DIMA ARNOLD, DEBBY Unavailable Unavailable NOEMI MCGEE, MARTELL Unavailable Unavailabl e Payers Payer Name Policy Type Policy Number Effective Date Expira tion Date MEDICARE - [place] - [facility] [id number] Problems Condition Name Condition Details Condition Category [...] MAY ACCEPT ORDERS FROM THE FOLLOWING PHYSICIANS: PRINTING MACHINE MECHANIC/TREATING PROVIDERS [code = HOME HEALTH AGENCY MAY ACCEPT ORDERS FROM THE FOLLOWING PHYSICIANS: PRINTING MACHINE MECHANIC/TREATING PROVIDERS] Future Scheduled Test SKILLED NU RSE [...] MAINTAIN SITUATIONAL AWARENESS AND WILL NOTIFY CLINICAL POWER SYSTEMS ENGINEER AND PHYSICIAN/PROVIDER WITH ANY CHANGE IN CONDITION. [code = SKILLED NURSE TO PERFORM ENVIRONMENTAL SAFETY RISK ASSESSMENT AND FALL RISK ASSESSMENT AND PROVIDE INSTRUCTION TO IMPLEMENT ENVIRONMENTAL SAFETY AND FALL PREVENTION STRATEGIES THROUGHOUT THE CERTIFICATION PERIOD. SKILLED NURSE WILL MAINTAIN SITUATIONAL AWARENESS AND WILL NOTIFY CLINICAL POWER SYSTEMS ENGINEER AND PHYSICIAN/PROVIDER WITH ANY CHANGE IN [...] IN HER BEDROOM. IS ATTENTIVE TO HER NEEDS.</paragraph><paragraph></paragraph><paragraph>AILSA IS ALERT AND ORIENTED X4. SHE DENIES ANY PAIN OR TAKING ANY PAIN MEDICATIONS IN OVER 24 HOURS. VITAL SIGNS ASSESSED BLOOD PRESSURE OUT OF NORMAL LIMITS, DUE TO NOTIFIED AND ONSET OF DIZZINESS SINCE 5 A.M. ORTHOSTATIC BLOOD PRESSURES ATTEMPTED BUT UPON STANDING PATIENT WAS TOO DIZZY AND HAD TO SIT BACK DOWN. BLOOD PRESSURE WAS ELEVATED CASTING AND PASTING SUPERVISOR AND MD'S OFFICE WAS NOTIFIED AND [...] TAKING MEDICATIONS PRESCRIBED.</paragraph><paragraph></paragraph><paragraph>UPON TALKING TO JOSUE HOGAN, CASTING AND PASTING SUPERVISOR OFFICE EMS WAS CALLED AND PATIENT WAS TAKEN TO [facility]. </paragraph><paragraph>DIMA ARNOLD OFFICE NOTIFIED OF SYMPTOMS,NO NEW ORDERS</paragraph> Encounters Start Date/Time End Date/Time Encounter Type Admission Type Attending [facility] Care Facility Care Department Encounter ID Discharge Date Discharge Status Discharge Condition Discharge Reason Percent Goals Met 2025-06-15 00:00:00 2025-08-13 00:00:00 Outpatient NEW ADMISSION MARTELL FRANKLIN [facility] [id number] 54.29
--- OUTSIDE RECORDS SUMMARY | 2025-08-12 18:00 | XMS_ITS | Clinical Summary ---
Author Organization Unknown Care Team Providers Care Instrumentation Designer Name Role Phone DIMA ARNOLD, DEBBY Unavailable Unavailable NOEMI MCGEE, MARTELL Unavailable Unavailabl e Payers Payer Name Policy Type Policy Number Effective Date Expira tion Date MEDICARE - [place] - [facility] [id number] Problems Condition Name Condition Details Condition Category [...] MAY ACCEPT ORDERS FROM THE FOLLOWING PHYSICIANS: OPERATING ROOM SURGICAL TECHNICIAN/TREATING PROVIDERS [code = HOME HEALTH AGENCY MAY ACCEPT ORDERS FROM THE FOLLOWING PHYSICIANS: OPERATING ROOM SURGICAL TECHNICIAN/TREATING PROVIDERS] Future Scheduled Test SKILLED NU [...] MAINTAIN SITUATIONAL AWARENESS AND WILL NOTIFY CLINICAL CABLE FERRYBOAT OPERATOR AND PHYSICIAN/PROVIDER WITH ANY CHANGE IN CONDITION. [code = SKILLED NURSE TO PERFORM ENVIRONMENTAL SAFETY RISK ASSESSMENT AND FALL RISK ASSESSMENT AND PROVIDE INSTRUCTION TO IMPLEMENT ENVIRONMENTAL SAFETY AND FALL PREVENTION STRATEGIES THROUGHOUT THE CERTIFICATION PERIOD. SKILLED NURSE WILL MAINTAIN SITUATIONAL AWARENESS AND WILL NOTIFY CLINICAL CABLE FERRYBOAT OPERATOR AND PHYSICIAN/PROVIDER WITH ANY CHANGE IN [...] SIT BACK DOWN. BLOOD PRESSURE WAS ELEVATED REGIONAL TANKER TRUCK DRIVER AND MD'S OFFICE WAS NOTIFIED AND AGREED [...] AND REMINDED THEY CAN CALL [facility] FIRST WITH ANY ISSUES OR CONCERNS. THE REMINDED TO KEEP ALL FOLLOW UP APPOINTMENTS AND TO CONTINUE TAKING MEDICATIONS PRESCRIBED.</paragraph><paragraph></paragraph><paragraph>UPON TALKING TO JOSUE HOGAN, REGIONAL TANKER TRUCK DRIVER OFFICE EMS WAS CALLED AND PATIENT WAS TAKEN TO [facility]. </paragraph><paragraph>DIMA ARNOLD OFFICE NOTIFIED OF SYMPTOMS,NO NEW ORDERS</paragraph> Encounters Start Date/Time End Date/Time Encounter Type Admission Type Attending [facility] Care Facility Care Department Encounter ID Discharge Date Discharge Status Discharge Condition Discharge Reason Percent Goals Met 2025-06-15 00:00:00 2025-08-13 00:00:00 Outpatient NEW ADMISSION MARTELL FRANKLIN [facility] [id number] 54.29
--- OUTSIDE RECORDS SUMMARY | 2025-08-12 18:00 | XMS_ITS | Clinical Summary ---
Author Organization Unknown Care Team Providers Care Top Stitcher Name Role Phone DIMA ARNOLD, DEBBY Unavailable Unavailable NOEMI MCGEE, MARTELL Unavailable Unavailabl e Payers Payer Name Policy Type Policy Number Effective Date Expira tion Date MEDICARE - [place] - [facility] [id number] Problems Condition Name Condition Details Condition Category [...] URINARY (TRACT) INFECTIONS Active 08-04 00:00: 00 [facility] (CURRENT) USE OF ASPIRIN Active 08-04 00:00: [...] MAY ACCEPT ORDERS FROM THE FOLLOWING PHYSICIANS: PULMONOLOGIST/TREATING PROVIDERS [code = HOME HEALTH AGENCY MAY ACCEPT ORDERS FROM THE FOLLOWING PHYSICIANS: PULMONOLOGIST/TREATING PROVIDERS] Future Scheduled Test SKILLED NU RSE [...] MAINTAIN SITUATIONAL AWARENESS AND WILL NOTIFY CLINICAL DIRECTOR PROCESS ENGINEERING AND PHYSICIAN/PROVIDER WITH ANY CHANGE IN CONDITION. [code = SKILLED NURSE TO PERFORM ENVIRONMENTAL SAFETY RISK ASSESSMENT AND FALL RISK ASSESSMENT AND PROVIDE INSTRUCTION TO IMPLEMENT ENVIRONMENTAL SAFETY AND FALL PREVENTION STRATEGIES THROUGHOUT THE CERTIFICATION PERIOD. SKILLED NURSE WILL MAINTAIN SITUATIONAL AWARENESS AND WILL NOTIFY CLINICAL DIRECTOR PROCESS ENGINEERING AND PHYSICIAN/PROVIDER WITH ANY CHANGE IN CONDITION.] [...] SIT BACK DOWN. BLOOD PRESSURE WAS ELEVATED SPIRITUAL MINISTER AND MD'S OFFICE WAS NOTIFIED AND AGREED [...] REACTIVE.</paragraph><paragraph></paragraph><paragraph>PATO AND REMINDED THEY CAN CALL [facility] FIRST WITH ANY ISSUES OR CONCERNS. THE REMINDED TO KEEP ALL FOLLOW UP APPOINTMENTS AND TO CONTINUE TAKING MEDICATIONS PRESCRIBED.</paragraph><paragraph></paragraph><paragraph>UPON TALKING TO JOSUE HOGAN, SPIRITUAL MINISTER OFFICE EMS WAS CALLED AND PATIENT WAS [...] MARTELL FRANKLIN [facility] [id number] 54.29
--- OUTSIDE RECORDS SUMMARY | 2025-08-12 18:00 | XMS_ITS | Clinical Summary ---
Author Organization Unknown Care Team Providers Care Cloth Layer Name Role Phone DIMA ARNOLD, DEBBY Unavailable Unavailable NOEMI MCGEE, MARTELL Unavailable Unavailabl e Payers Payer Name Policy Type Policy Number Effective Date Expira tion Date MEDICARE - [place] - [facility] [id number] Problems Condition Name Condition Details Condition Category [...] MAY ACCEPT ORDERS FROM THE FOLLOWING PHYSICIANS: ADVANCED MANUFACTURING ASSOCIATE/TREATING PROVIDERS [code = HOME HEALTH AGENCY MAY ACCEPT ORDERS FROM THE FOLLOWING PHYSICIANS: ADVANCED MANUFACTURING ASSOCIATE/TREATING PROVIDERS] Future Scheduled Test SKILLED NU RSE [...] MAINTAIN SITUATIONAL AWARENESS AND WILL NOTIFY CLINICAL EDITORIAL PROJECT MANAGER AND PHYSICIAN/PROVIDER WITH ANY CHANGE IN CONDITION. [code = SKILLED NURSE TO PERFORM ENVIRONMENTAL SAFETY RISK ASSESSMENT AND FALL RISK ASSESSMENT AND PROVIDE INSTRUCTION TO IMPLEMENT ENVIRONMENTAL SAFETY AND FALL PREVENTION STRATEGIES THROUGHOUT THE CERTIFICATION PERIOD. SKILLED NURSE WILL MAINTAIN SITUATIONAL AWARENESS AND WILL NOTIFY CLINICAL EDITORIAL PROJECT MANAGER AND PHYSICIAN/PROVIDER WITH ANY CHANGE IN [...] SIT BACK DOWN. BLOOD PRESSURE WAS ELEVATED CASH APPLICATIONS ASSOCIATE AND MD'S OFFICE WAS NOTIFIED AND AGREED [...] EQUALLY REACTIVE.</paragraph><paragraph></paragraph><paragraph>PATO AND REMINDED THEY CAN CALL [facility] FIRST WITH ANY ISSUES OR CONCERNS. THE REMINDED TO KEEP ALL FOLLOW UP APPOINTMENTS AND TO CONTINUE TAKING MEDICATIONS PRESCRIBED.</paragraph><paragraph></paragraph><paragraph>UPON TALKING TO JOSUE HOGAN, CASH APPLICATIONS ASSOCIATE OFFICE EMS WAS CALLED AND PATIENT WAS TAKEN TO [facility]. </paragraph><paragraph>DIMA ARNOLD OFFICE NOTIFIED OF SYMPTOMS,NO NEW ORDERS</paragraph> Encounters Start Date/Time End Date/Time Encounter Type Admission Type Attending [facility] Care Facility Care Department Encounter ID Discharge Date Discharge Status Discharge Condition Discharge Reason Percent Goals Met 2025-06-15 00:00:00 2025-08-13 00:00:00 Outpatient NEW ADMISSION MARTELL FRANKLIN [facility] [id number] 54.29
--- OUTSIDE RECORDS SUMMARY | 2025-08-12 18:00 | XMS_ITS | Clinical Summary ---
Author Organization Unknown Care Team Providers Care Child Watch Attendant Name Role Phone DIMA ARNOLD, DEBBY Unavailable Unavailable NOEMI MCGEE, MARTELL Unavailable Unavailabl e Payers Payer Name Policy Type Policy Number Effective Date Expira tion Date MEDICARE - [facility] [id number] Problems Condition Name Condition Details Condition Category [...] MAY ACCEPT ORDERS FROM THE FOLLOWING PHYSICIANS: CHIMNEY SUPERVISOR BRICK/TREATING PROVIDERS [code = HOME HEALTH AGENCY MAY ACCEPT ORDERS FROM THE FOLLOWING PHYSICIANS: CHIMNEY SUPERVISOR BRICK/TREATING PROVIDERS] Future Scheduled Test SKILLED NU RSE [...] MAINTAIN SITUATIONAL AWARENESS AND WILL NOTIFY CLINICAL PIPELINES SUPERINTENDENT AND PHYSICIAN/PROVIDER WITH ANY CHANGE IN CONDITION. [code = SKILLED NURSE TO PERFORM ENVIRONMENTAL SAFETY RISK ASSESSMENT AND FALL RISK ASSESSMENT AND PROVIDE INSTRUCTION TO IMPLEMENT ENVIRONMENTAL SAFETY AND FALL PREVENTION STRATEGIES THROUGHOUT THE CERTIFICATION PERIOD. SKILLED NURSE WILL MAINTAIN SITUATIONAL AWARENESS AND WILL NOTIFY CLINICAL PIPELINES SUPERINTENDENT AND PHYSICIAN/PROVIDER WITH ANY CHANGE IN [...] SIT BACK DOWN. BLOOD PRESSURE WAS ELEVATED AGRICULTURAL ECONOMIST AND MD'S OFFICE WAS NOTIFIED AND AGREED [...] EQUALLY REACTIVE.</paragraph><paragraph></paragraph><paragraph>PATO AND REMINDED THEY CAN CALL [facility] FIRST WITH ANY ISSUES OR CONCERNS. THE REMINDED TO KEEP ALL FOLLOW UP APPOINTMENTS AND TO CONTINUE TAKING MEDICATIONS PRESCRIBED.</paragraph><paragraph></paragraph><paragraph>UPON TALKING TO JOSUE HOGAN, AGRICULTURAL ECONOMIST OFFICE EMS WAS CALLED AND PATIENT WAS TAKEN TO [facility]. </paragraph><paragraph>DIMA ARNOLD OFFICE NOTIFIED OF SYMPTOMS,NO NEW ORDERS</paragraph> Encounters Start Date/Time End Date/Time Encounter Type Admission Type Attending [facility] Care Department Encounter ID Discharge Date Discharge Status Discharge Condition Discharge Reason Percent Goals Met 2025-06-15 00:00:00 2025-08-13 00:00:00 Outpatient NEW ADMISSION MARTELL FRANKLIN [facility] [id number]
== END 2025-06-22 17:50 | disposition home or self-care (01) ==
PROVIDERS: Emergency Provider Emergency Medicine; PCP Nurse Practitioner Family
DX: R42 Dizziness and giddiness (principal); E55.9 Vitamin D deficiency, unspecified; E03.9 Hypothyroidism, unspecified; K21.9 Gastro-esophageal reflux disease without esophagitis; G47.33 Obstructive sleep apnea (adult) (pediatric); G25.81 Restless legs syndrome; G62.9 Polyneuropathy, unspecified; F32.A Depression, unspecified; Z96.653 Presence of artificial knee joint, bilateral; Z86.0100 Personal history of colon polyps, unspecified; Z90.49 Acquired absence of other specified parts of digestive tract; Z90.79 Acquired absence of other genital organ(s); Z90.721 Acquired absence of ovaries, unilateral; Z79.899 Other long term (current) drug therapy
CPT/HCPCS: 36415; 70450; 80053; 81001; 85025; 87086; 99284; A9270; J7040